=== PATIENT | female | born 1935 | race Caucasian/White ===

== ENCOUNTER → 2016-12-18 | Outpatient (CLI) | payer MEDICARE, OTHER ==
[~2016-12-18] MED LIST: AC500T PO; ACET325T38 PO; AMIO200T2 PO; AMLO10TA2 PO; ASPI-999 PO; BP MED; CA C1TAB26 PO; CALC-656 PO; CARB1TAB19 PO; CARB1TAB44 PO; CETI10CA PO; CETI10TA20 PO; CHLO25TA2 PO; CHLO25TA22; CLOP75TA28 PO; CLOP75TA69 PO; CPR500T PO; DEXT15LI29 PO; DOXY100C2 PO; FAMO-119 PO; FAMO20TA5 PO; FLT05NA16 NSEACH; FURO-124 PO; FURO40TA4 PO; GABA-486 PO; GABA600T2 PO; GUAI100L34 PO; IBUP-15; LEVO100T7 PO; LEVO125T6 PO; LEVO75TA57; LEVO75TA57 PO; LISI20TA PO; LISI40TA; LOPE1LIQ7 PO; LOPE2TAB34 PO; LOSA100T28 PO; LOSA50TA36 PO; LOSA50TA6 PO; LVT.05T; MAGN400C PO; MAGN400T6 PO; MECL-106 PO; MECL25TA3 PO; MELA1TAB10 PO; METF500T4 PO; MULT-608 PO; OMEG1CAP58 PO; OMEP40CA36 PO; ONDA4TAB8 PO; ONDA8TAB6 PO; OXCA300T PO; OXCA300T4 PO; PARO20TA57; PARO30TA74 PO; PAXIL; POTA20TA15 PO; POTA20TA8 PO; REQUIP; RIVA6CAP3 PO; RIVA6CAP5 PO; ROPI1TAB; ROPI1TAB2 PO; SCOP1PAT TD; SCR1T1; SENN-140 PO; SENN8.6C5 PO; SERT100T PO; SERT100T8 PO; SERT50TA9 PO; SULF1TAB35 PO; TEMA15CA PO; TRAZ-28 PO; VERA240C2 PO; VERA240T; xanax
== END ==
PROVIDERS: ATTEND Internal Medicine
DX: J09.X9 Influenza due to identified novel influenza A virus with other manifestations (principal)
CPT/HCPCS: 87804

== ENCOUNTER 2017-02-22 17:12 | Emergency (ER) | payer MEDICARE, OTHER ==
[~2017-02-22] VITALS: Ht 165.1 cm; Wt 66.0 kg
--- NOTE | 2017-02-22 17:20 | ED Chest Pain ---
General Stated Complaint: CP/SOA Source: patient, EMS Exam Limitations: no limitations History of Present Illness Time seen by provider: 17:19 Initial Comments To ER per EMS from medical [place] chronic with reports of chest pain shortness of breath. EMS gave nitroglycerin and aspirin in route to the hospital. Patient states that she does not currently have any chest pain or shortness of breath but that she did have some mild chest pain earlier today. She also states "I don't know what they got so worked up about, I have that chest pain quite a bit". She believes this to be related to anxiety. Timing/Duration: 4-6 hours Severity/Quality: moderate Radiation: no radiation Activities at Onset: none ASA po PRESS BREAKER: Yes NTG SL PRESS BREAKER: Yes Allergies and Home Medications Allergies Coded Allergies: amitriptyline (Unverified Adverse Reaction, Mild, PSYCH-HYPERACTIVE, 08/27) diazepam (Verified Adverse Reaction, Unknown, 08/02/15) haloperidol (Verified Adverse Reaction, Unknown, 08/02/15) lorazepam (Verified Adverse Reaction, Unknown, 08/02/15) Home Medications Acetaminophen 325 Mg Tablet, 650 MG PO Q4H PRN for PAIN, (Reported) TAKES 2 (325MG) TABLETS Amlodipine Besylate 10 Mg Tablet, 10 MG PO DAILY, (Reported) Aspirin 81 Mg Tab.chew, 81 MG PO DAILY, (Reported) Carbidopa/Levodopa 1 Each Tablet, 1 TAB PO BID, (Reported) Cetirizine HCl 10 Mg Tablet, 10 MG PO DAILY PRN for COUGH/WHEEZING/ITCHING, ( Reported) Clopidogrel Bisulfate 75 Mg Tablet, 75 MG PO DAILY, (Reported) Dextromethorphan HBr 15 Mg/5 Ml Liquid, 2 TSP PO Q4H PRN for COUGH, (Reported) Famotidine 20 Mg Tablet, 20 MG PO BID, (Reported) Furosemide 40 Mg Tablet, 40 MG PO DAILY, (Reported) Gabapentin 100 Mg Capsule, 100 MG PO DAILY @ 1200, (Reported) Gabapentin 600 Mg Tablet, 1,200 MG PO HS, (Reported) TAKES 2 (600MG) TABLETS Levothyroxine Sodium 125 Mcg Tablet, 125 MCG PO DAILY, (Reported) Loperamide HCl 2 Mg Tablet, 2 MG PO UD PRN for DIARRHEA, (Reported) Losartan Potassium 100 Mg Tablet, 100 MG PO DAILY, (Reported) Magnesium Oxide 400 Mg Tablet, 400 MG PO TID, (Reported) Meclizine HCl 25 Mg Tablet, 25 MG PO Q6H PRN for DIZZINESS, (Reported) Metformin HCl 500 Mg Tablet, 250 MG PO DAILY, (Reported) TAKES 1/2 (500MG) TABLET Metformin HCl 500 Mg Tablet, 500 MG PO HS, (Reported) Ondansetron HCl 8 Mg Tablet, 8 MG PO Q6H PRN for NAUSEA/VOMITING, (Reported) Oxcarbazepine 300 Mg Tablet, 300 MG PO HS, (Reported) Potassium Chloride 20 Meq Tab.er.prt, 20 MEQ PO TID, (Reported) Rivastigmine Tartrate 6 Mg Capsule, 6 MG PO BID, (Reported) Ropinirole HCl 1 Mg Tablet, 1 MG PO BID, (Reported) Scopolamine 1 Each Patch.td72, 1 PATCH TD EVERY 72 HOURS, (Reported) Sennosides 8.6 Mg Tablet, 8.6 MG PO DAILY PRN for CONSTIPATION, (Reported) Sertraline HCl 100 Mg Tablet, 100 MG PO DAILY, (Reported) Sulfamethoxazole/Trimethoprim 1 Each Tablet, 1 TAB PO BID for 10 Days, (Reported ) 10 DAY THERAPY STARTED 11-19-15 Temazepam 15 Mg Capsule, 15 MG PO HS, (Reported) Trazodone HCl 50 Mg Tablet, 50 MG PO HS, (Reported) Review of Systems Constitutional: see HPI EENTM: No Symptoms Reported Respiratory: No Symptoms Reported Cardiovascular: See HPI, Chest Pain Gastrointestinal: No Symptoms Reported Genitourinary: No Symptoms Reported Musculoskeletal: no symptoms reported Skin: no symptoms reported Psychiatric/Neurological: No Symptoms Reported Endocrine: No Symptoms Reported Past Ruwnamq-Xjzutv-Eejyjc Hx Patient Social History Former Smoker/When Quit: Aug 03, 1975 Recent Foreign Travel: No Contact w/Someone Who Travel: No Immunizations Up To Date Date of Pneumonia Vaccine: Aug 03, 2013 Seasonal Allergies Seasonal Allergies: No Surgeries HX Surgeries: Yes (CYSTOCELE/RECTOCELE) Surgeries: Appendectomy, Cardiac, Gallbladder, 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 Respiratory Hx Respiratory Disorders: No Cardiovascular Hx Cardiac Disorders: Yes (HEART CATH--NO INTERVENTIONS, BENIGN) Cardiac Disorders: Atrial Fibrillation, Chronic Edema/Swelling, Hypertension Neurological Hx Neurological Disorders: Yes (RESTLESS LEG SYNDROME) Neurological Disorders: Dementia 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 System Hx 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 Disorders: No 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, 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 Genitourinary Hx Genitourinary Disorders: Yes Genitourinary Disorders: Bladder Infection Gastrointestinal Hx Gastrointestinal Disorders: Yes Gastrointestinal Disorders: Gastroesophageal Reflux, Chronic Constipation, Chronic Diarrhea Musculoskeletal Hx Musculoskeletal Disorders: Yes (RESTLESS LEG SYNDROME, GENERALIZED PAIN) Endocrine Hx Endocrine Disorders: Yes Endocrine Disorders: Hypothyroidsim, Diabetes, Non-Insulin dep HEENT HX ENT Disorders: No Cancer Hx Cancer: No Psychosocial Hx Psychiatric Problems: Yes (ALZHEIMERS, AGITATION, INSOMNIA) Behavioral Health Disorders: Sleep Difficulties, Anxiety, Bipolar, Depression Integumentary HX Skin/Integumentary Disorder: No Blood Transfusions Hx Blood Disorders: No Physical Exam Vital Signs Vital Sign - Last 12Hours 02/22/17 17:15 Temp 98.1 Pulse 79 Resp 14 B/P (MAP) 168/95 Pulse Ox 97 O2 Delivery Room Air Capillary Refill : General Appearance: No Apparent Distress, WD/WN HEENT: PERRL/EOMI, TMs Normal Neck: Full Range of Motion, Normal Inspection Respiratory: No Accessory Muscle Use, No Respiratory Distress Cardiovascular: Regular Rate, Rhythm, Normal Peripheral Pulses Gastrointestinal: Normal Bowel Sounds, Non Tender, Soft Extremity: Normal Capillary Refill, Normal Inspection Neurologic/Psychiatric: Alert, Oriented x3, No Motor/Sensory Deficits Skin: Normal Color, Warm/Dry Progress/Results/Core Measures Results/Orders Lab Results Laboratory Tests Test 02/22/17 17:35 02/22/17 17:58 Range/Units White Blood Count 6.8 4.3-11.0 10^3/uL Red Blood Count 4.72 4.35-5.85 10^6/uL Hemoglobin 13.8 11.5-16.0 G/DL Hematocrit 40 35-52 % Mean Corpuscular Volume 85 80-99 FL Mean Corpuscular Hemoglobin 29 25-34 PG Mean Corpuscular Hemoglobin Concent 35 32-36 G/DL Red Cell Distribution Width 13.0 10.0-14.5 % Platelet Count 187 130-400 10^3/uL Mean Platelet Volume 9.9 7.4-10.4 FL Neutrophils (%) (Auto) 68 42-75 % Lymphocytes (%) (Auto) 22 12-44 % Monocytes (%) (Auto) 9 0-12 % Eosinophils (%) (Auto) 1 0-10 % Basophils (%) (Auto) 0 0-10 % Neutrophils # (Auto) 4.6 1.8-7.8 X 10^3 Lymphocytes # (Auto) 1.5 1.0-4.0 X 10^3 Monocytes # (Auto) 0.6 0.0-1.0 X 10^3 Eosinophils # (Auto) 0.1 0.0-0.3 10^3/uL Basophils # (Auto) 0.0 0.0-0.1 10^3/uL Prothrombin Time 12.5 12.2-14.7 SEC INR Comment 1.0 0.8-1.4 Activated Partial Thromboplast Time 24 24-35 SEC Sodium Level 141 135-145 MMOL/L Potassium Level 4.0 3.6-5.0 MMOL/L Chloride Level 109 H 98-107 MMOL/L Carbon Dioxide Level 20 L 21-32 MMOL/L Anion Gap 12 5-14 MMOL/L Blood Urea Nitrogen 22 H 7-18 MG/DL Creatinine 1.18 0.60-1.30 MG/DL Estimat Glomerular Filtration Rate 44 BUN/Creatinine Ratio 19 Glucose Level 121 H 70-105 MG/DL Calcium Level 9.1 8.5-10.1 MG/DL Magnesium Level 2.1 1.8-2.4 MG/DL Total Bilirubin 0.3 0.1-1.0 MG/DL Aspartate Amino Transf (AST/SGOT) 14 5-34 U/L Alanine Aminotransferase (ALT/SGPT) < 6 0-55 U/L Alkaline Phosphatase 147 H 40-136 U/L Myoglobin 36.2 10.0-92.0 NG/ML Troponin I < 0.30 <0.30 NG/ML Total Protein 7.0 6.4-8.2 G/DL Albumin 4.3 3.2-4.5 G/DL My Orders Orders - JESSICA PAINTING REED OR WIND INSTRUMENT TUNER Cbc With Automated Diff (02/22/17 17:18) Magnesium (02/22/17 17:18) Chest 1 View, Ap/Pa Only (02/22/17 17:18) Ekg Tracing (02/22/17 17:18) Cardiac Profile 1 (02/22/17 17:18) Comprehensive Metabolic Panel (02/22/17 17:18) Myoglobin Serum (02/22/17 17:18) Protime With Inr (02/22/17 17:18) Partial Thromboplastin Time (02/22/17 17:18) O2 (02/22/17 17:18) Monitor-Rhythm Ecg Trace Only (02/22/17 17:18) Lipid Panel (02/23/17 06:00) Saline Lock/Iv-Start (02/22/17 17:18) Ua Culture If Indicated (02/22/17 17:55) Ekg Tracing (02/22/17 18:17) Vital Signs/I&O Vital Sign - Last 12Hours 02/22/17 02/22/17 17:15 17:15 Temp 98.1 Pulse 79 Resp 14 B/P (MAP) 168/95 Pulse Ox 97 O2 Delivery Room Air Room Air Diagnostic Imaging Diagonstic Imaging: Xray Plain Films/CT/US/NM/MRI: chest Departure Communication Progress Notes 182- patient is sitting on the edge of the bed visiting with her . Continues to report that she is symptom-free without any chest pain or dyspnea. No palpitations. She states that she is hungry and would like to go home so she can eat. She states "I don't know why they sent me here, everybody just got in a panic". Oxygen saturation 99 percent on room air, heart rate 62, blood pressure 151/81. EKG shows no ST segment changes. Impression Impression: Primary Impression: Anxiety Additional Impression: History of chest pain Disposition: SNF Condition: Stable Departure-Patient Inst. Decision time for Depature: 18:21 Referrals: VERONICA SPRINGER MD (PCP/Family) Primary Care Physician Patient Instructions: Chest Pain (DC) Add. Discharge Instructions: 1. Return to ER for any concerns such as recurrent chest pain 2. Follow-up with your doctor later this week 3. Continue all current medications JESSICA PAINTING APRN Feb 22, 2017 17:20
[2017-02-22 17:46] LABS: BASOPHILS % (AUTO) 0 % (0-10); EOSINOPHILS # (AUTO) 0.1 10^3/uL (0.0-0.3); EOSINOPHILS % (AUTO) 1 % (0-10); LYMPHOCYTES # (AUTO) 1.5 X 10^3 (1.0-4.0); LYMPHOCYTES % (AUTO) 22 % (12-44); MEAN CORPUSCULAR HEMOGLOBIN 29 PG (25-34); MEAN CORPUSCULAR HGB CONC 35 G/DL (32-36); MEAN CORPUSCULAR VOLUME 85 FL (80-99); MEAN PLATELET VOLUME 9.9 FL (7.4-10.4); MONOCYTES # (AUTO) 0.6 X 10^3 (0.0-1.0); MONOCYTES % (AUTO) 9 % (0-12); NEUTROPHILS # (AUTO) 4.6 X 10^3 (1.8-7.8); NEUTROPHILS % (AUTO) 68 % (42-75); PLATELET COUNT 187 10^3/uL (130-400); RED BLOOD COUNT 4.72 10^6/uL (4.35-5.85); WHITE BLOOD COUNT 6.8 10^3/uL (4.3-11.0)
[2017-02-22 18:00] LABS: PROTHROMBIN TIME PATIENT 12.5 SEC (12.2-14.7)
--- NOTE | 2017-02-22 18:05 | Diagnostic Imaging Report ---
CHEST 1 VIEW, AP/PA ONLY INDICATION: Chest pain and dyspnea. COMPARISON: 11/18/2015. FINDINGS: There are a few scattered linear foci of atelectasis which are unchanged. No concerning focal airspace disease in the visualized lungs. Please note that the posterior lower lobes are poorly evaluated by portable radiography. No pleural effusion or pneumothorax. Stable borderline cardiomegaly. Normal pulmonary vasculature IMPRESSION: No acute cardiopulmonary process by portable radiography. Dictated by: Dictated on workstation # [id number]
[2017-02-22 18:07] LABS: ALANINE AMINOTRANSFERASE < 6 U/L (0-55); ALBUMIN 4.3 G/DL (3.2-4.5); ANION GAP 12 MMOL/L (5-14); ASPARTATE AMINO TRANSFERASE 14 U/L (5-34); BILIRUBIN,TOTAL 0.3 MG/DL (0.1-1.0); BLOOD UREA NITROGEN 22 MG/DL (7-18); BUN/CREATININE RATIO 19; CALCIUM 9.1 MG/DL (8.5-10.1); CARBON DIOXIDE 20 MMOL/L (21-32); CHLORIDE 109 MMOL/L (98-107); CREATININE SERUM 1.18 MG/DL (0.60-1.30); GFR ESTIMATED 44; GLUCOSE 121 MG/DL (70-105); MAGNESIUM 2.1 MG/DL (1.8-2.4); SODIUM 141 MMOL/L (135-145)
[2017-02-22 18:12] LABS: BILIRUBIN,URINE NEGATIVE (NEGATIVE); KETONES,URINE NEGATIVE (NEGATIVE); LEUKOCYTE ESTERASE ,URINE 1+ (NEGATIVE); NITRITE,URINE NEGATIVE (NEGATIVE); PH,URINE 7 (5-9); PROTEIN,URINE NEGATIVE (NEGATIVE); UROBILINOGEN,URINE NORMAL (NORMAL)
[2017-02-22 18:13] LABS: MYOGLOBIN SERUM 36.2 NG/ML (10.0-92.0)
[2017-02-22 18:42] VITALS: BP 168/95
[2017-02-22 18:56] LABS: WBC,URINE 0-2 /HPF
== END 2017-02-22 18:42 ==
LOC: EDUNIT# 17:12 → ER 17:13
DX: R07.89 Other chest pain (principal); F41.9 Anxiety disorder, unspecified; I10 Essential (primary) hypertension; I48.2 Chronic atrial fibrillation; E11.9 Type 2 diabetes mellitus without complications; Z79.82 Long term (current) use of aspirin; Z79.899 Other long term (current) drug therapy; Z79.84 Long term (current) use of oral hypoglycemic drugs
CPT/HCPCS: 36415; 71010; 80053; 81000; 83735; 83874; 84484; 85025; 85610; 85730; 93005; 93041

== ENCOUNTER 2017-06-01 15:49 | Inpatient (IN) | payer MEDICARE, OTHER ==
[2017-06-01] VITALS (12 sets, daily range): BP systolic 119–152; BP diastolic 65–97
[~2017-06-01] VITALS: Ht 175.3 cm; Wt 76.5 kg
[~2017-06-01 15:49] MED LIST changes: -GUAI100L34 PO; +GUAI100L36 PO
[2017-06-01] MEDS ORDERED: ASPIRIN 81 MG CHEW (CHILDREN'S ASA) PO ONE (16:00)
[2017-06-01] MEDS ORDERED: LORazepam INJ 2 MG/ML (ATIVAN) VIAL IVP ONE ×2 (16:00→18:15)
[2017-06-01 16:31] LABS: BASOPHILS % (AUTO) 0 % (0-10); EOSINOPHILS # (AUTO) 0.1 10^3/uL (0.0-0.3); EOSINOPHILS % (AUTO) 1 % (0-10); LYMPHOCYTES # (AUTO) 1.3 X 10^3 (1.0-4.0); LYMPHOCYTES % (AUTO) 17 % (12-44); MEAN CORPUSCULAR HEMOGLOBIN 29 PG (25-34); MEAN CORPUSCULAR HGB CONC 34 G/DL (32-36); MEAN CORPUSCULAR VOLUME 84 FL (80-99); MEAN PLATELET VOLUME 9.8 FL (7.4-10.4); MONOCYTES # (AUTO) 0.5 X 10^3 (0.0-1.0); MONOCYTES % (AUTO) 7 % (0-12); NEUTROPHILS # (AUTO) 5.6 X 10^3 (1.8-7.8); NEUTROPHILS % (AUTO) 75 % (42-75); PLATELET COUNT 215 10^3/uL (130-400); RED BLOOD COUNT 4.97 10^6/uL (4.35-5.85); WHITE BLOOD COUNT 7.4 10^3/uL (4.3-11.0)
--- NOTE | 2017-06-01 16:44 | Diagnostic Imaging Report ---
EXAMINATION: Portable upright radiograph of the chest. INDICATION: Chest pain. FINDINGS: The heart size is enlarged with minimal pulmonary vascular congestion. No focal consolidation. No effusion or pneumothorax. The mediastinum and yuridia appear unremarkable. IMPRESSION: Cardiomegaly with minimal pulmonary vascular congestion. Dictated by: Dictated on workstation # [id number]
[2017-06-01] MEDS ORDERED: DILTIAZEM 25 MG/5 ML INJ (CARDIZEM) VIAL IVP ONE (16:45)
--- NOTE | 2017-06-01 16:46 | ED Chest Pain ---
General Chief Complaint: Chest Pain Stated Complaint: CP Nursing Triage Note: PT ARRIVED PER EMS, PT CO OF C/P PT HAS ALZHEIMER AND DIMENTIA. PT HAS SL IN PLACE #24 IN L HAND BY EMS. PT HEART RATE 140'S. PT IS FROM [place] IN [facility] Sepsis Screen: No Definite Risk Source: patient (POOR HISTORIAN, PT WITH DEMENTIA), EMS, detention records Exam Limitations: other (ALL PMH IS FROM OLD RECORDS AND ASSISTED RECORDS) History of Present Illness Time seen by provider: 15:57 Initial Comments PT ARRIVES VIA EMS FROM [facility] PT HAS C/O CHEST PAIN AND BEEN VERY ANXIOUS ALL DAY PT UPSET BECAUSE SHE THINKS HER HAS NOT BEEN TO SEE HER--PER EMS, HER IS THERE EVERY DAY, NEARLY ALL DAY, PT SIMPLY DOES NOT REMEMBER HIM BEING THERE, AND THEN SHE GETS UPSET PT HAS PRN XANAX ORDERS, BUT HAS NOT BEEN GIVEN ANY TODAY PT STATES "THIS ISN'T ANYTHING NEW-WHEN I GET UPSET I ALWAYS GET PAINS IN MY HEART AREA AND I GET SCARED BECAUSE MY DAD AT A YOUNG AGE OF A HEART ATTACK " -PT REPORTS HE IN HIS 40'S HOWEVER, PT WITH VERY POOR MEMORY AND CANNOT RECALL ANY OF THE DAYS' EVENTS PT VERY ANXIOUS ON ARRIVAL PT DOES STILL C/O CHEST PAIN, BUT NOT BAD, ACCORDING TO PT PT DENIES FEELING SHORT OF BREATH DENIES SENSATION OF HEART BEATING FAST OR HARD OR SKIPPING DENIES DIZZINESS PT UNABLE TO VERBALIZE ANY OTHER COMPLAINTS PCP: DR. SPRINGER Allergies and Home Medications Allergies Coded Allergies: amitriptyline (Unverified Adverse Reaction, Mild, PSYCH-HYPERACTIVE, 08/27) diazepam (Verified Adverse Reaction, Unknown, 08/02/15) haloperidol (Verified Adverse Reaction, Unknown, 08/02/15) lorazepam (Verified Adverse Reaction, Unknown, 08/02/15) Home Medications Acetaminophen 325 Mg Tablet, 650 MG PO Q4H PRN for PAIN, (Reported) TAKES 2 (325MG) TABLETS Amlodipine Besylate 10 Mg Tablet, 10 MG PO DAILY, (Reported) Aspirin 81 Mg Tab.chew, 81 MG PO DAILY, (Reported) Carbidopa/Levodopa 1 Each Tablet, 1 TAB PO BID, (Reported) Cetirizine HCl 10 Mg Tablet, 10 MG PO DAILY PRN for COUGH/WHEEZING/ITCHING, ( Reported) Clopidogrel Bisulfate 75 Mg Tablet, 75 MG PO DAILY, (Reported) Dextromethorphan HBr 15 Mg/5 Ml Liquid, 2 TSP PO Q4H PRN for COUGH, (Reported) Famotidine 20 Mg Tablet, 20 MG PO BID, (Reported) Furosemide 40 Mg Tablet, 40 MG PO DAILY, (Reported) Gabapentin 100 Mg Capsule, 100 MG PO DAILY @ 1200, (Reported) Gabapentin 600 Mg Tablet, 1,200 MG PO HS, (Reported) TAKES 2 (600MG) TABLETS Levothyroxine Sodium 125 Mcg Tablet, 125 MCG PO DAILY, (Reported) Loperamide HCl 2 Mg Tablet, 2 MG PO UD PRN for DIARRHEA, (Reported) Losartan Potassium 100 Mg Tablet, 100 MG PO DAILY, (Reported) Magnesium Oxide 400 Mg Tablet, 400 MG PO TID, (Reported) Meclizine HCl 25 Mg Tablet, 25 MG PO Q6H PRN for DIZZINESS, (Reported) Metformin HCl 500 Mg Tablet, 250 MG PO DAILY, (Reported) TAKES 1/2 (500MG) TABLET Metformin HCl 500 Mg Tablet, 500 MG PO HS, (Reported) Ondansetron HCl 8 Mg Tablet, 8 MG PO Q6H PRN for NAUSEA/VOMITING, (Reported) Oxcarbazepine 300 Mg Tablet, 300 MG PO HS, (Reported) Potassium Chloride 20 Meq Tab.er.prt, 20 MEQ PO TID, (Reported) Rivastigmine Tartrate 6 Mg Capsule, 6 MG PO BID, (Reported) Ropinirole HCl 1 Mg Tablet, 1 MG PO BID, (Reported) Scopolamine 1 Each Patch.td72, 1 PATCH TD EVERY 72 HOURS, (Reported) Sennosides 8.6 Mg Tablet, 8.6 MG PO DAILY PRN for CONSTIPATION, (Reported) Sertraline HCl 100 Mg Tablet, 100 MG PO DAILY, (Reported) Sulfamethoxazole/Trimethoprim 1 Each Tablet, 1 TAB PO BID for 10 Days, (Reported ) 10 DAY THERAPY STARTED 11-19-16 Temazepam 15 Mg Capsule, 15 MG PO HS, (Reported) Trazodone HCl 50 Mg Tablet, 50 MG PO HS, (Reported) Review of Systems Constitutional: other (VERY LIMITED) Respiratory: Denies Shortness of Air Cardiovascular: Chest Pain, Denies Irregular Heart Rate, Denies Lightheadedness , Denies Palpitations Psychiatric/Neurological: See HPI, Anxiety Past Kjcmygi-Xrmkpy-Tgvlpg Hx Patient Social History Former Smoker/When Quit: Aug 03, 1975 2nd Hand Smoke Exposure: No Recent Foreign Travel: No Contact w/Someone Who Travel: No Recent Infectious Disease Expo: No Recent Hopitalizations: No Immunizations Up To Date Date of Pneumonia Vaccine: Aug 03, 2013 Seasonal Allergies Seasonal Allergies: No Surgeries HX Surgeries: Yes (CYSTOCELE/RECTOCELE) Surgeries: Appendectomy, Cardiac, Gallbladder, 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 Respiratory Hx Respiratory Disorders: No Cardiovascular Hx Cardiac Disorders: Yes (HEART CATH--NO INTERVENTIONS, BENIGN) Cardiac Disorders: Atrial Fibrillation (SUSPECTED), Chronic Edema/Swelling, Hypertension Neurological Hx Neurological Disorders: Yes (RESTLESS LEG SYNDROME; DIZZINESS; DRUG INDUCED DYSKINESIA) Neurological Disorders: Dementia 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 System Hx 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 Disorders: 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, 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 Genitourinary Hx Genitourinary Disorders: Yes Genitourinary Disorders: Bladder Infection Gastrointestinal Hx Gastrointestinal Disorders: Yes Gastrointestinal Disorders: Gastroesophageal Reflux, Chronic Constipation, Chronic Diarrhea Musculoskeletal Hx Musculoskeletal Disorders: Yes (RESTLESS LEG SYNDROME, GENERALIZED PAIN) Endocrine Hx Endocrine Disorders: Yes Endocrine Disorders: Hypothyroidsim, Diabetes, Non-Insulin dep HEENT HX ENT Disorders: No Cancer Hx Cancer: No Psychosocial Hx Psychiatric Problems: Yes (ALZHEIMERS, AGITATION, INSOMNIA) Behavioral Health Disorders: Sleep Difficulties, Anxiety, Bipolar, Depression Integumentary HX Skin/Integumentary Disorder: No Blood Transfusions Hx Blood Disorders: Yes (IRON DEFICIENCY ANEMIA) Physical Exam Vital Signs Vital Sign - Last 12Hours 06/01/17 15:55 Temp 98.1 Pulse 140 Resp 20 B/P (MAP) 152/96 Pulse Ox 96 Capillary Refill : Less Than 3 Seconds General Appearance: No Apparent Distress, WD/WN, Anxious (TREMULOUS) Neck: Normal Inspection Respiratory: Normal Breath Sounds, No Accessory Muscle Use, No Respiratory Distress Cardiovascular: No JVD, No Murmur, Normal Peripheral Pulses, Irregularly Irregular, Tachycardia Gastrointestinal: Non Tender, Soft Extremity: Normal Capillary Refill, Normal Inspection, Normal Range of Motion, Non Tender, No Calf Tenderness, Pedal Edema (TRACE BILATERALLY) Neurologic/Psychiatric: Alert, No Motor/Sensory Deficits, placement manager II-XII Norm as Tested, Other (ANXIOUS, AGITIATED, ORIENTED TO PERSON, AND KNOWS SHE IS IN HOSPITAL, BUT CONFUSED TO TIME, SITUATION, AND VERY POOR MEMORY-ESPEICALLY SHORT TERM) Skin: Normal Color, Warm/Dry Progress/Results/Core Measures Results/Orders Lab Results Laboratory Tests Test 06/01/17 16:20 Range/Units White Blood Count 7.4 4.3-11.0 10^3/uL Red Blood Count 4.97 4.35-5.85 10^6/uL Hemoglobin 14.3 11.5-16.0 G/DL Hematocrit 42 35-52 % Mean Corpuscular Volume 84 80-99 FL Mean Corpuscular Hemoglobin 29 25-34 PG Mean Corpuscular Hemoglobin Concent 34 32-36 G/DL Red Cell Distribution Width 13.0 10.0-14.5 % Platelet Count 215 130-400 10^3/uL Mean Platelet Volume 9.8 7.4-10.4 FL Neutrophils (%) (Auto) 75 42-75 % Lymphocytes (%) (Auto) 17 12-44 % Monocytes (%) (Auto) 7 0-12 % Eosinophils (%) (Auto) 1 0-10 % Basophils (%) (Auto) 0 0-10 % Neutrophils # (Auto) 5.6 1.8-7.8 X 10^3 Lymphocytes # (Auto) 1.3 1.0-4.0 X 10^3 Monocytes # (Auto) 0.5 0.0-1.0 X 10^3 Eosinophils # (Auto) 0.1 0.0-0.3 10^3/uL Basophils # (Auto) 0.0 0.0-0.1 10^3/uL Prothrombin Time 12.5 12.2-14.7 SEC INR Comment 1.0 0.8-1.4 Activated Partial Thromboplast Time 25 24-35 SEC Sodium Level 141 135-145 MMOL/L Potassium Level 4.0 3.6-5.0 MMOL/L Chloride Level 107 98-107 MMOL/L Carbon Dioxide Level 22 21-32 MMOL/L Anion Gap 12 5-14 MMOL/L Blood Urea Nitrogen 23 H 7-18 MG/DL Creatinine 1.29 0.60-1.30 MG/DL Estimat Glomerular Filtration Rate 39 BUN/Creatinine Ratio 18 Glucose Level 145 H 70-105 MG/DL Calcium Level 9.6 8.5-10.1 MG/DL Magnesium Level 2.1 1.8-2.4 MG/DL Total Bilirubin 0.3 0.1-1.0 MG/DL Aspartate Amino Transf (AST/SGOT) 12 5-34 U/L Alanine Aminotransferase (ALT/SGPT) 8 0-55 U/L Alkaline Phosphatase 162 H 40-136 U/L Total Creatine Kinase 54 29-168 U/L Creatine Kinase MB 2.1 <6.6 NG/ML Troponin I < 0.30 <0.30 NG/ML B-Type Natriuretic Peptide 238.0 H <100.0 PG/ML Total Protein 8.0 6.4-8.2 GM/DL Albumin 4.7 H 3.2-4.5 GM/DL Amylase Level 44 25-125 U/L Lipase 20 8-78 U/L TSH [place] Testing 0.78 0.35-4.94 UIU/ML My Orders Orders - MCKINLEY HYDE DO Amylase (06/01/17 15:57) Cbc With Automated Diff (06/01/17 15:57) Comprehensive Metabolic Panel (06/01/17 15:57) Creatine Kinase (06/01/17 15:57) Creatine Kinase Mb (06/01/17 15:57) Lipase (06/01/17 15:57) Partial Thromboplastin Time (06/01/17 15:57) Protime With Inr (06/01/17 15:57) Troponin I (06/01/17 15:57) Chest 1 View, Ap/Pa Only (06/01/17 15:57) O2 (06/01/17 15:57) Ekg Tracing (06/01/17 15:57) Aspirin Chewable Tablet (Baby Aspirin Ch (06/01/17 16:00) BNP (06/01/17 15:57) Monitor-Rhythm Ecg Trace Only (06/01/17 15:57) Lorazepam Injection (Ativan Injection) (06/01/17 16:00) Magnesium (06/01/17 16:36) Thyroid Analyzer (06/01/17 16:36) Diltiazem Injection (Cardizem Injection) (06/01/17 16:45) Sodium Chloride (Ad... W/Diltiazem Drip (06/01/17 18:00) Enoxaparin Injection (Lovenox Injection) (06/01/17 18:00) Lorazepam Injection (Ativan Injection) (06/01/17 18:15) Medications Given in ED Current Medications Medications Dose Ordered Sig/Jovani Route Start Time Stop Time Status Last Admin Dose Admin Aspirin 324 mg ONCE ONCE PO 06/01/17 16:00 06/01/17 16:01 DC 06/01/17 16:20 324 MG Diltiazem HCl 10 mg ONCE ONCE IVP 06/01/17 16:45 06/01/17 16:46 DC 06/01/17 16:53 10 MG Lorazepam 1 mg ONCE ONCE IVP 06/01/17 16:00 06/01/17 16:01 DC 06/01/17 16:20 1 MG Vital Signs/I&O Vital Sign - Last 12Hours 06/01/17 15:55 Temp 98.1 Pulse 140 Resp 20 B/P (MAP) 152/96 Pulse Ox 96 Blood Pressure Mean: 114 Progress Note : Progress Note PT CALMED WITH ATIVAN, AND SLEPT FOR MOST OF STAY NO COMPLAINTS DURING ER STAY GIVEN CARDIZEM BOLUS OF 10 MG AND HEART RATE SLOWED TO 110-120, STILL IN A FIB. CARDIZEM DRIP STARTED AND RATE IN LOW 100'S AT TIME OF ADMIT LOVENOX GIVEN 1800--PT OUT OF BED, HAS PULLED OUT IV, REMOVED ALL PATCHES AND MONITORING DEVICES AND STARTING TO WALK OUT OF ROOM--PT ASSISTED BACK TO BED, PLACED BACK ON MONITOR, IV RESTARTED, PT URINATED IN BEDSIDE COMMODE, THEN PT QUIETED AND WENT BACK TO SLEEP 1830-- HERE, UPDATE GIVEN. HE REPORTS THAT PT'S SHORT TERM MEMORY IS ESSENTIALLY NON-EXISTENT, AND SHE VERY EASILY GETS UPSET/ANXIOUS/AGITATED, ESPECIALLY TOWARDS HIM ECG Initial ECG Impression Time: 15:57 Initial ECG Rate: 135 Initial ECG Rhythm: A Fib/Flutter Initial ECG Comparisson: Changed (MOST PREVIOUS EKG'S SHOW NSR, A COUPLE WITH QUESTIONABLE ARRHYTHMIA, BUT NO DEFINITE EVIDENCE OF ATRIAL FIBRILLATION. ) Diagnostic Imaging Comments CXR--CARDIOMEGALY WITH MINIMAL VASCULAR CONGESTION--PER RADIOLOGIST REPORT @ 1645 Reviewed: Reviewed by Me Departure Communication Progress Notes 1744--SPOKE WITH DR. MAN, ACCEPTS PT FOR ADMIT 1800--ATTEMPTING TO CONTACT DR. MENDOZA, MESSAGE LEFT ON CELL PHONE. [id number]--SPOKE WITH DR. MENDOZA, INFORMED OF NEED FOR CONSULT. Impression Impression: Primary Impression: Atrial fibrillation with rapid ventricular response Additional Impressions: Chest pain DEMENTIA WITH ANXIETY NIDDM Disposition: ADMITTED INPATIENT Condition: Stable Decision to Admit Reason: Admit from ER (General) Decision to Admit/Date: Jun 01, 2017 Time/Decision to Admit Time: 17:45 Departure-Patient Inst. Referrals: VERONICA SPRINGER MD (PCP/Family) Primary Care Physician MCKINLEY HYDE DO Jun 01, 2017 16:46
[2017-06-01 16:53] LABS: PROTHROMBIN TIME PATIENT 12.5 SEC (12.2-14.7)
[2017-06-01 17:04] LABS: ALANINE AMINOTRANSFERASE 8 U/L (0-55); ALBUMIN 4.7 GM/DL (3.2-4.5); AMYLASE 44 U/L (25-125); ANION GAP 12 MMOL/L (5-14); ASPARTATE AMINO TRANSFERASE 12 U/L (5-34); BILIRUBIN,TOTAL 0.3 MG/DL (0.1-1.0); BLOOD UREA NITROGEN 23 MG/DL (7-18); BUN/CREATININE RATIO 18; CALCIUM 9.6 MG/DL (8.5-10.1); CARBON DIOXIDE 22 MMOL/L (21-32); CHLORIDE 107 MMOL/L (98-107); CREATINE KINASE 54 U/L (29-168); CREATININE SERUM 1.29 MG/DL (0.60-1.30); GFR ESTIMATED 39; GLUCOSE 145 MG/DL (70-105); LIPASE 20 U/L (8-78); SODIUM 141 MMOL/L (135-145)
[2017-06-01 17:05] LABS: MAGNESIUM 2.1 MG/DL (1.8-2.4)
[2017-06-01 17:26] LABS: TROPONIN I < 0.30 NG/ML (<0.30)
[2017-06-01] MEDS ORDERED: ENOXAPARIN 80 MG/0.8 ML (LOVENOX) SYR SC ONE (18:00)
[2017-06-01] MEDS ORDERED: DILTIAZEM DRIP 100 MG in SODIUM CHLORIDE (ADD-VANTAGE) 100 ML IV SCH (18:00)
[2017-06-01] MEDS ORDERED: NITROGLYCERIN SUBLINGUAL 0.4 MG TAB (NITROSTAT) SL PRN (20:15)
[2017-06-01] MEDS ORDERED: morphine INJ 4 MG/ML 1 ML (VIAL/SYRINGE) IV PRN (20:15)
[2017-06-01] MEDS ORDERED: CATHETER FLUSH 10 ML SYR IV PRN (20:15)
[2017-06-01] MEDS: inSUlin (REGULAR) HUMAN 1 UNIT/0.01 ML (CHARGE PER UNIT) SC SCH (21:23)
[2017-06-01] MEDS: CATHETER FLUSH 10 ML SYR IV SCH (22:47)
[2017-06-01] MEDS: LORazepam INJ 2 MG/ML (ATIVAN) VIAL IV PRN (22:54)
[2017-06-02] VITALS (19 sets, daily range): BP systolic 123–169; BP diastolic 59–136
[2017-06-02] MEDS: LORazepam INJ 2 MG/ML (ATIVAN) VIAL IV PRN ×2 (00:32→15:08)
[2017-06-02] MEDS: DILTIAZEM DRIP 100 MG/NS 100 ML IV SCH ×4 (00:33→05:57)
[2017-06-02 03:28] LABS: BILIRUBIN,URINE NEGATIVE (NEGATIVE); KETONES,URINE NEGATIVE (NEGATIVE); LEUKOCYTE ESTERASE ,URINE 3+ (NEGATIVE); NITRITE,URINE NEGATIVE (NEGATIVE); PH,URINE 7 (5-9); PROTEIN,URINE 1+ (NEGATIVE); UROBILINOGEN,URINE NORMAL (NORMAL)
[2017-06-02 03:41] LABS: SQUAMOUS EPITHELIAL CELL,UR RARE /HPF
[2017-06-02 05:02] LABS: CALCIUM 9.3 MG/DL (8.5-10.1); CREATININE SERUM 0.92 MG/DL (0.60-1.30); MAGNESIUM 2.1 MG/DL (1.8-2.4); PHOSPHORUS 2.9 MG/DL (2.3-4.7)
[2017-06-02] MEDS: POTASSIUM CL 10MEQ/50ML IVPB 50 ML IV SCH (05:24)
[2017-06-02] MEDS: MAGNESIUM 1 GM/100 ML IVPB 100 ML IV SCH (05:24)
[2017-06-02] MEDS: CATHETER FLUSH 10 ML SYR IV SCH ×3 (05:24→21:35)
[2017-06-02] MEDS: inSUlin (REGULAR) HUMAN 1 UNIT/0.01 ML (CHARGE PER UNIT) SC SCH ×4 (05:25→21:59)
[2017-06-02] MEDS: KCL 20 MEQ TAB (K-DUR) PO SCH (05:25)
[2017-06-02] MEDS: ENOXAPARIN 80 MG/0.8 ML (LOVENOX) SYR SC SCH ×2 (05:57→19:02)
--- NOTE | 2017-06-02 08:36 | Diagnostic Imaging Report ---
Portable upright radiograph of the chest. INDICATION: Dyspnea. COMPARISON: 06/01/2017. FINDINGS: There is cardiomegaly with increasing pulmonary vascular congestion. There is developing left basilar subsegmental infiltrates or atelectasis. No significant effusion. No pneumothorax. IMPRESSION: Cardiomegaly with increasing vascular congestion and developing mild left basilar infiltrates or atelectasis. Dictated by: Dictated on workstation # [id number]
[2017-06-02 08:55] LABS: BASOPHILS % (AUTO) 0 % (0-10); EOSINOPHILS % (AUTO) 0 % (0-10); LYMPHOCYTES # (AUTO) 1.2 X 10^3 (1.0-4.0); LYMPHOCYTES % (AUTO) 12 % (12-44); MEAN CORPUSCULAR HEMOGLOBIN 29 PG (25-34); MEAN CORPUSCULAR HGB CONC 34 G/DL (32-36); MEAN CORPUSCULAR VOLUME 85 FL (80-99); MONOCYTES # (AUTO) 0.6 X 10^3 (0.0-1.0); MONOCYTES % (AUTO) 6 % (0-12); NEUTROPHILS # (AUTO) 7.7 X 10^3 (1.8-7.8); NEUTROPHILS % (AUTO) 81 % (42-75); PLATELET COUNT 213 10^3/uL (130-400); RED BLOOD COUNT 5.11 10^6/uL (4.35-5.85); WHITE BLOOD COUNT 9.5 10^3/uL (4.3-11.0)
[2017-06-02] MEDS: ASPIRIN E.C. 325 MG (ECOTRIN) TABLET PO SCH (09:58)
[2017-06-02] MEDS ORDERED: VIT-8 PO (10:32)
[2017-06-02] MEDS ORDERED: LACT1CAP45 PO (10:32)
[2017-06-02] MEDS ORDERED: MAGN500C16 PO (10:32)
[2017-06-02] MEDS ORDERED: GABA-486 PO (10:32)
[2017-06-02] MEDS ORDERED: MELA3TAB PO (10:32)
[2017-06-02] MEDS ORDERED: FERR-65 PO (10:32)
--- NOTE | 2017-06-02 10:53 | Consultation-Cardiology ---
HPI-Cardiology Cardiology Consultation: Date of Consultation 06/02/17 Date of Admission Attending Physician Anaya Sifuentes MD Admitting Physician Noah Gibbs MD Consulting Physician Agus TRIPLETT MD HPI: Time Seen by Provider: 09:30 Chief Complaint: Atrial fibrillation This is a 82-year-old lady with history of dementia. She is also confused and a poor historian. She denies having previous arrhythmias. She also does not think that she has any significant cardiac pathology. She presented with chest pain and was found to be in atrial fibrillation with rapid ventricular rate. Review of Systems-Cardiology Review of Systems Constitutional: No As described under HPI, No no symptoms reported, No chills, No fever, No lightheadedness, No malaise, No tiredness, No weight loss, No weight gain, No other Eyes: No As described under HPI, No no symptoms reported, No blindness, No blurred vision, No contact lenses, No drainage, No decreased acuity, No foreign body sensation, No glasses, No inflammation, No pain, No photophobia, No previous injury, No shadows, No tunnel vision, No other, No vision change Ears/Nose/Throat: No As described under HPI, No no symptoms reported, No chronic hearing loss, No epistaxis, No ear discharge, No ear pain, No loose teeth, No mouth pain, No mouth swelling, No nasal drainage, No nose pain, No recent hearing loss, No throat pain, No throat swelling, No ulcerations, No other Respiratory: shortness of breath Cardiovascular: chest pain, irregular heart rate Gastrointestinal: No no symptoms reported, No As described under HPI, No abdomen distended, No abdominal pain, No blood streaked bowels, No constipation , No diarrhea, No difficulty swallowing, No nausea, No poor appetite, No poor fluid intake, No rectal bleeding, No vomiting, No other, No nausea/vomiting/ diarrhea, No stool coloration changes Genitourinary: No no symptoms reported, No As described under HPI, No burning, No dysuria, No discharge, No frequency, No flank pain, No hematuria, No incontinence, No pain, No urgency, No other, No urine frequency changes, No urine coloration changes Musculoskeletal: No no symptoms reported, No As describe under HPI, No back pain, No gout, No joint pain, No joint swelling, No muscle pain, No muscle stiffness, No neck pain, No other Skin: No no symptoms reported, No As described under HPI, No change in color, No change in hair/nails, No dryness, No lesions, No lumps, No rash, No other, No skin related problems, No ulcerations, No rash on exposed areas, No ulcerations on exposed areas Psychiatric/Neurological: No As described under HPI, No anxiety, No depression , No emotional problems, No focal weakness, No headache, No no symptoms reported , No numbness, No other, No pre-existing deficit, No seizure, No syncope, No tingling, No tremors, No weakness Hematologic: No no symptoms reported, No As described under HPI, No anemia, No blood clots, No easy bleeding, No easy bruising, No swollen glands, No other, No bleeding abnormalities [id number] Hx Patient Social History Alcohol Use: Denies Use Recreational Drug Use: No Smoking Status: Former Smoker Former smoker/When Quit: Aug 03, 1975 Type Used: Cigarettes 2nd Hand Smoke Exposure: No Recent Foreign Travel: No Recent Infectious Disease Expo: No Hospitalization with Isolation: Denies Physical Abuse Screen: No Sexual Abuse: No Immunizations Up To Date Date of Pneumonia Vaccine: Aug 03, 2013 Past Medical History PMH As described under Assessment. Allergies and Home Medications Allergies Coded Allergies: amitriptyline (Unverified Adverse Reaction, Mild, PSYCH-HYPERACTIVE, 08/27) diazepam (Verified Adverse Reaction, Unknown, 08/02/15) haloperidol (Verified Adverse Reaction, Unknown, 08/02/15) lorazepam (Verified Adverse Reaction, Unknown, 08/02/15) Home Medications Acetaminophen 325 Mg Tablet, 650 MG PO Q4H PRN for PAIN-MILD, (Reported) TAKES 2 (325MG) TABLETS Amlodipine Besylate 10 Mg Tablet, 10 MG PO DAILY, (Reported) Carbidopa/Levodopa 1 Each Tablet, 1 TAB PO BID, (Reported) Cetirizine HCl 10 Mg Tablet, 10 MG PO DAILY, (Reported) Clopidogrel Bisulfate 75 Mg Tablet, 75 MG PO DAILY, (Reported) Dextromethorphan HBr 15 Mg/5 Ml Liquid, 10 ML PO Q6H PRN for COUGH, (Reported) Famotidine 20 Mg Tablet, 20 MG PO BID, (Reported) Ferrous Sulfate 325 Mg Tablet, 325 MG PO BID, (Reported) Furosemide 40 Mg Tablet, 40 MG PO DAILY, (Reported) Gabapentin 100 Mg Capsule, 100 MG PO DAILY, (Reported) Gabapentin 100 Mg Capsule, 200 MG PO HS, (Reported) TAKES 2 (100MG) CAPSULES Lactobacillus Acidophilus 1 Each Capsule, 1 CAP PO DAILY, (Reported) Levothyroxine Sodium 125 Mcg Tablet, 125 MCG PO DAILY, (Reported) Loperamide HCl 2 Mg Tablet, 2 MG PO UD PRN for DIARRHEA, (Reported) Losartan Potassium 100 Mg Tablet, 100 MG PO DAILY, (Reported) Magnesium Oxide 500 Mg Capsule, 500 MG PO 0800,1200,1700, (Reported) Melatonin 3 Mg Tablet, 9 MG PO HS, (Reported) TAKES 3 (3MG) TABLETS Oxcarbazepine 300 Mg Tablet, 300 MG PO HS, (Reported) Potassium Chloride 20 Meq Tab.er.prt, 20 MEQ PO TID, (Reported) Rivastigmine Tartrate 6 Mg Capsule, 6 MG PO BID, (Reported) Ropinirole HCl 1 Mg Tablet, 1 MG PO BID, (Reported) Sennosides 8.6 Mg Tablet, 8.6 MG PO DAILY PRN for CONSTIPATION-5TH LINE, ( Reported) Sertraline HCl 100 Mg Tablet, 100 MG PO DAILY, (Reported) Trazodone HCl 50 Mg Tablet, 50 MG PO HS, (Reported) Vit A/C/E AC/Znox/Cupric Oxide 1 Each Tablet, 1 TAB PO DAILY, (Reported) Physical Exam-Cardiology Physical Exam Vital Signs/I&O Vital Sign - Last 12Hours 06/02/17 06/02/17 06/02/17 06/02/17 04:00 04:00 04:00 05:00 Temp 97.1 Pulse 94 108 Resp 7 16 B/P (MAP) 149/96 130/96 Pulse Ox 96 O2 Delivery Room Air Room Air Room Air 06/02/17 06/02/17 06/02/17 06/02/17 05:57 06:00 07:00 07:09 Temp 97.4 Pulse 112 118 109 112 Resp 30 24 B/P (MAP) 140/65 140/65 130/92 O2 Delivery Room Air Room Air 06/02/17 06/02/17 06/02/17 06/02/17 08:00 08:11 08:30 09:14 Temp 97.7 98.4 Pulse 106 107 99 Resp 12 10 12 B/P (MAP) 157/83 149/85 Pulse Ox 96 98 O2 Delivery Room Air Room Air Room Air Room Air 06/02/17 06/02/17 06/02/17 06/02/17 10:07 12:00 12:00 12:03 Temp 98.5 98.5 98.4 Pulse 102 112 107 Resp 11 8 19 B/P (MAP) 126/91 128/99 133/82 Pulse Ox 98 96 98 O2 Delivery Room Air Room Air Room Air Room Air Intake and Output 06/02/17 00:00 Intake Total 200 ml Output Total 350 ml Balance -150 ml Capillary Refill : Less Than 3 Seconds Constitutional: appears stated age, well-developed HEENT: No PERRL, No normal ENT inspection, No TMs normal, No pharynx normal, No scleral icterus (R), No scleral icterus (L), No pale conjunctivae (R), No pale conjunctivae (L), No photophobia, No TM abnormal (R), No TM abnormal (L), No pharyngeal erythema, No tonsillar exudate, No other, No discharge, No EOMI, No hearing is well preserved, No hard of hearing, No oral hygience is good, No ulceration, No xanthelasmas are seen Neck: No non-tender, No full range of motion, No supple, No normal inspection, No carotid bruit, No limited range of motion, No lymphadenopathy (R), No lymphadenopathy (L), No tender lateral, No tender midline, No thyromegaly, No other, No carotid pulses are 2 + bilaterally, No with good upstrokes Respiratory: No accessory muscle use, No respiratory distress, No chest tender , No chest expansion is symmetric, No chest is bilaterally symmetric, No lungs clear to percussion, No lungs clear to auscultation, No crackles, No rhonchi, No rales, No stridor, No wheezing, No pleural rub, No other Cardiovascular: irregularly irregular, tachycardia, S1 and S2 Gastrointestinal: No tender, No soft, No round, No distended, No pulsatile mass , No organomegaly, No guarding, No rebound, No tenderness, No hernia, No mass, No audible bowel sounds, No abnormal bowel sounds, No abdominal bruits, No spleenomegaly, No other Rectal: deferred Extremities: No normal range of motion, No non-tender, No normal inspection, No pedal edema, No calf tenderness, No normal capillary refill, No pelvis stable , No calf tenderness, No inflammation, No pedal edema, No slow capillary refill , No swelling, No other, No abrasion, No clubbing, No cyanosis, No ecchymosis, No laceration, No no lower extremity edema bilateral, No significant edema, No tenderness, No wound Neurologic/Psychiatric: disoriented x 3, grossly intact Skin: No normal color, No warm/dry, No cyanosis, No cool, No diaphoresis, No damp, No ecchymosis, No jaundice, No mottled, No pallor, No rash, No tattoos/ piercings, No ulcerations, No rash on exposed areas, No ulcerations on exposed areas, No other Data Review Labs Laboratory Tests 06/01/17 16:20: White Blood Count 7.4, Red Blood Count 4.97, Hemoglobin 14.3, Hematocrit 42, Mean Corpuscular Volume 84, Mean Corpuscular Hemoglobin 29, Mean Corpuscular Hemoglobin Concent 34, Red Cell Distribution Width 13.0, Platelet Count 215, Mean Platelet Volume 9.8, Neutrophils (%) (Auto) 75, Lymphocytes (%) (Auto) 17, Monocytes (%) (Auto) 7, Eosinophils (%) (Auto) 1, Basophils (%) (Auto) 0, Neutrophils # (Auto) 5.6, Lymphocytes # (Auto) 1.3, Monocytes # (Auto) 0.5, Eosinophils # (Auto) 0.1, Basophils # (Auto) 0.0, Prothrombin Time 12.5, INR Comment 1.0, Activated Partial Thromboplast Time 25, Sodium Level 141, Potassium Level 4.0, Chloride Level 107, Carbon Dioxide Level 22, Anion Gap 12, Blood Urea Nitrogen 23H, Creatinine 1.29, Estimat Glomerular Filtration Rate 39 , BUN/Creatinine Ratio 18, Glucose Level 145H, Calcium Level 9.6, Magnesium Level 2.1, Total Bilirubin 0.3, Aspartate Amino Transf (AST/SGOT) 12, Alanine Aminotransferase (ALT/SGPT) 8, Alkaline Phosphatase 162H, Total Creatine Kinase 54, Creatine Kinase MB 2.1, Troponin I < 0.30, B-Type Natriuretic Peptide 238.0H , Total Protein 8.0, Albumin 4.7H, Amylase Level 44, Lipase 20, TSH Garner Testing 0.78 06/01/17 21:22: Glucometer 112H 06/01/17 22:10: Troponin I < 0.30 06/02/17 03:20: Urine Color YELLOW, Urine Clarity SLIGHTLY CLOUDY, Urine pH 7, Urine Specific [place] 1.010L, Urine Protein 1+H, Urine Glucose (UA) NEGATIVE, Urine Ketones NEGATIVE, Urine Nitrite NEGATIVE, Urine Bilirubin NEGATIVE, Urine Urobilinogen NORMAL, Urine Leukocyte Esterase 3+H, Urine RBC (Auto) 1+H, Urine RBC RARE, Urine WBC 2-5, Urine Squamous Epithelial Cells RARE, Urine Crystals NONE, Urine Bacteria TRACE, Urine Casts NONE, Urine Mucus SMALLH, Urine Culture Indicated NO 06/02/17 04:15: Sodium Level 140, Potassium Level 4.0, Chloride Level 108H, Carbon Dioxide Level 19L, Anion Gap 13, Blood Urea Nitrogen 20H, Creatinine 0.92, Estimat Glomerular Filtration Rate 58, BUN/Creatinine Ratio 22, Glucose Level 149H, Calcium Level 9.3, Phosphorus Level 2.9, Magnesium Level 2.1 06/02/17 08:47: White Blood Count 9.5, Red Blood Count 5.11, Hemoglobin 14.8, Hematocrit 43, Mean Corpuscular Volume 85, Mean Corpuscular Hemoglobin 29, Mean Corpuscular Hemoglobin Concent 34, Red Cell Distribution Width 13.0, Platelet Count 213, Mean Platelet Volume 10.0, Neutrophils (%) (Auto) 81H, Lymphocytes (%) (Auto) 12 , Monocytes (%) (Auto) 6, Eosinophils (%) (Auto) 0, Basophils (%) (Auto) 0, Neutrophils # (Auto) 7.7, Lymphocytes # (Auto) 1.2, Monocytes # (Auto) 0.6, Eosinophils # (Auto) 0.0, Basophils # (Auto) 0.0 ECG Impression ECG Initial ECG Impression: Atrial Fibrillation w/RVR A/P-Cardiology Assessment/Admission Diagnosis alzheimers, atrial fibrillation, chest pain Plan AF: cardizem infusion. aspirin and plavix. I am not sure the etiology for which she is on aspirin and plavix. Need to discuss with family whether she should be started on oral anticoagulation. risks and benefits need to be discussed especially the risk of bleeding especially with dementia. chest pain: serial troponin negative. BNP 200 - mildly elevated. no CHF on exam. Echocardiogram showed normal LV function. Thank you for your consultation. Please call me if you have any questions. Hunter Triplett MD, FACP, FACC, FSCAI, FHRS, CCDS Interventional Cardiology Cardiac Electrophysiology Vascular Medicine and Endovascular Interventions Clinical Quality Measures AMI/AHF: ASA po Prior to arrival: No DVT/VTE Risk/Contraindication: Risk Factor Score Per Nursin RFS Level Per Nursing on Admit: 2=Moderate Agus TRIPLETT MD Jun 02, 2017 10:53 am
--- NOTE | 2017-06-02 13:25 | Physical Therapy Evaluation ---
PT Evaluation-General Medical Diagnosis Admission Date Jun 01, 2017 at 17:45 Medical Diagnosis: afib with RVR Onset Date: Jun 01, 2017 Therapy Diagnosis Therapy Diagnosis: impaired mobility, strength, endurance, balance Height/Weight Height (Feet): 5 Height (Inches): 9.00 Weight (Pounds): 169 Weight (Ounces): 5.0 Precautions Precautions/Isolations: Fall Prevention, Standard Precautions Referral Physician: Anaya Sifuentes MD Reason for Referral: Evaluation/Treatment Medical History Pertinent Medical History: DM, Dementia, GERD, HTN Additional Medical History former smoker, alzheimers, lives in [place], chronic edema, RLS, dizziness, drug induced dyskinesia, chronic constipation, chronic diarrhea, generalized pain, hypothyroidism, agitation, insomnia, bipolar, depression, anxiety, surg ( cystocele/retrocele, appendectomy, cardiac, gallbladder, hysterectomy) Current History went to ER via EMS with complaints of chest pain Reviewed History: Yes Social History Home: Alf Prior/Core FIM Prior Level of Function Functional [place] Measure 0=Not Assessed/NA 4=Minimal Assistance 1=Total Assistance 5=Supervision or Setup 2=Maximal Assistance 6=Modified [place] 3=Moderate Assistance 7=Complete [place] unknown, patient cannot say if she used an assistive device to walk PT Evaluation-Current Subjective Patient in chair pre tx, has a sitter, has no complaints of pain but states she gets dizzy sometimes. Pt/Family Goals "to get out of this place" Objective Patient Orientation: Confused Attachments: IV ROM/Strength ROM Lower Extremities WNL Strenght Lower Extremities 4/5 gross bilateral lower extremities Neuromuscular (Tone, Coordination, Reflexes) minimally decreased tone and coordination in bilateral lower extremities during ambulation Sensory Vision: Functional Hearing: Impaired Sensation Right Lower Extremit: Intact Sensation Left Lower Extremity: Intact Sensation Lower Extremities patient has no complaints of numbness or tingling Transfers Functional [place] Measure 0=Not Assessed/NA 4=Minimal Assistance 1=Total Assistance 5=Supervision or Setup 2=Maximal Assistance 6=Modified [place] 3=Moderate Assistance 7=Complete [place] Supine to/from Sit: 4 Patient can stand from a seated position with CGA, needs cues for safety and hand placement. She is impulsive and will move before getting lines or obstacles out of the way. Gait Mode of Locomotion: Walk Anticipated Mode of Locomotion: Walk Gait (FIM): 4 Distance: 200' Gait Level of Assist: 4 Gait Persons Needed: 1 Gait Assistive Device: FWW Comments/Gait Description slow, unsteady, needs assist with balance and sometimes to guide the walker Balance Sitting Static: Normal Sitting Dynamic: Normal Standing Static: Fair Standing Dynamic: Fair Treatment seated ex x10 (AP, LAQ, hip flexion) Assessment/Needs Patient has impaired mobility, strength, endurance, balance. She is also confused and at increased risk for a fall. Patient also stated that she was a little dizzy during ambulation but not too bad. Rehab Potential: Fair PT Leadership Development Manager Goals Longterm Goals PT Leadership Development Manager Goals Time Frame: Jun 09, 2017 Transfers (B,C,W/C) (FIM): 5 Gait (FIM): 5 Distance: 300' Gait Level of Assist: 5 Gait Assistive Device: FWW PT Plan Problem List Problem List: Activity Tolerance, Functional Strength, Safety, Balance, Gait, Transfer, Bed Mobility, ROM Treatment/Plan Treatment Plan: Continue Plan of Care Treatment Plan: Bed Mobility, Education, Functional Activity [place], Functional Strength, Gait, Safety, Therapeutic Exercise, Transfers Treatment Duration: Jun 09, 2017 Frequency: 6 times per week Estimated Hrs Per Day: .25 hour per day (15-30 min a day) Patient and/or Family Agrees t: Yes Safety Risks/Education Patient Education: Gait Training, Transfer Techniques, Correct Positioning, Safety Issues Teaching Recipient: Patient Teaching Methods: Demonstration, Discussion Response to Teaching: Reinforcement Needed Discharge Recommendations Plan Patient will perform bed mobility and transfer training, balance and endurance training, functional strengthening, stair training, gait training, and education , to improve functional mobility and independence at home. Therapy D/C Recommendations: Half-Way (TCU/NH) Time/GCodes Time In: 1255 Time Out: 1315 Total Billed Treatment Time: 20 Total Billed Treatment 1 visit [place] 20' SACHA LOPEZ PT Jun 02, 2017 13:25
[2017-06-02] MEDS: MAGNESIUM OXIDE (MAG-OX)400 MG TAB PO SCH (17:08)
--- NOTE | 2017-06-02 18:57 | History & Physicial (CHS) ---
HPI History of Present Illness: 82 yo F with dementia and poor historian that presented to ER with chest pain that started 1 hr prior to arrival to ER. States that her pain was on the left side of her chest. Denies pain into shoulder or jaw. States that she has not had this type of pain before. Patient was found to be in A fib with RVR. At baseline this patient can carry on a conversation and ambulate without assistance but is confused. Her is in the room this AM and states that she is at her baseline this AM. Source: patient, family () Exam Limitations: clinical condition Date seen by provider: Jun 02, 2017 Time Seen by Provider: 09:35 Attending Physician Anaya Sifuentes MD PCP Noah Gibbs MD Consult Date of Admission Jun 01, 2017 at 17:45 Home Medications Home Medications Reviewed patient Home Medication Reconciliation Form Allergies Coded Allergies: amitriptyline (Unverified Adverse Reaction, Mild, PSYCH-HYPERACTIVE, 08/27) diazepam (Verified Adverse Reaction, Unknown, 08/02/15) haloperidol (Verified Adverse Reaction, Unknown, 08/02/15) lorazepam (Verified Adverse Reaction, Unknown, 08/02/15) CTR-[id number]-[id number] Hx Patient Social History Living Status: Lives in [place] Alcohol Use: Denies Use Recreational Drug Use: No Smoking Status: Former Smoker Former smoker/When Quit: Aug 03, 1975 Type Used: Cigarettes 2nd Hand Smoke Exposure: No Recent Foreign Travel: No Contact w/other who traveled: No Recent Hopitalizations: No Recent Infectious Disease Expo: No Physical Abuse Screen: No Sexual Abuse: No Immunizations Up To Date Date of Pneumonia Vaccine: Aug 03, 2013 Past Medical History Dementia Paroxysmal Atrial fibrillation HTN Hypothyroidism Review of Systems (CHC) Constitutional: no symptoms reported, No chills, No fever EENTM: no symptoms reported, No hoarseness, No mouth pain, No mouth swelling, No vision loss Respiratory: cough, No dyspnea on exertion, No hemoptysis, No short of breath Cardiovascular: chest pain, No edema, No palpitations Gastrointestinal: no symptoms reported, No abdominal pain, No constipation, No diarrhea, No nausea, No vomiting Genitourinary: no symptoms reported, No dysuria, No frequency, No hematuria : No Musculoskeletal: neck pain Skin: no symptoms reported, No lesions, No rash Psychiatric/Neurological: Denies Numbness, Denies Tingling, Denies Weakness Reviewed Test Results Reviewed Test Results Lab Laboratory Tests Test 06/01/17 21:22 06/01/17 22:10 06/02/17 03:20 06/02/17 04:15 Range/Units Glucometer 112 H 70-110 MG/DL Troponin I < 0.30 <0.30 NG/ML Urine Color YELLOW Urine Clarity SLIGHTLY CLOUDY Urine pH 7 5-9 Urine Specific [place] 1.010 L 1.016-1.022 Urine Protein 1+ H NEGATIVE Urine Glucose (UA) NEGATIVE NEGATIVE Urine Ketones NEGATIVE NEGATIVE Urine Nitrite NEGATIVE NEGATIVE Urine Bilirubin NEGATIVE NEGATIVE Urine Urobilinogen NORMAL NORMAL MG/DL Urine Leukocyte Esterase 3+ H NEGATIVE Urine RBC (Auto) 1+ H NEGATIVE Urine RBC RARE /HPF Urine WBC 2-5 /HPF Urine Squamous Epithelial Cells RARE /HPF Urine Crystals NONE /LPF Urine Bacteria TRACE /HPF Urine Casts NONE /LPF Urine Mucus SMALL H /LPF Urine Culture Indicated NO Sodium Level 140 135-145 MMOL/L Potassium Level 4.0 3.6-5.0 MMOL/L Chloride Level 108 H 98-107 MMOL/L Carbon Dioxide Level 19 L 21-32 MMOL/L Anion Gap 13 5-14 MMOL/L Blood Urea Nitrogen 20 H 7-18 MG/DL Creatinine 0.92 0.60-1.30 MG/DL Estimat Glomerular Filtration Rate 58 BUN/Creatinine Ratio 22 Glucose Level 149 H 70-105 MG/DL Calcium Level 9.3 8.5-10.1 MG/DL Phosphorus Level 2.9 2.3-4.7 MG/DL Magnesium Level 2.1 1.8-2.4 MG/DL Test 06/02/17 08:47 06/02/17 16:28 Range/Units White Blood Count 9.5 4.3-11.0 10^3/uL Red Blood Count 5.11 4.35-5.85 10^6/uL Hemoglobin 14.8 11.5-16.0 G/DL Hematocrit 43 35-52 % Mean Corpuscular Volume 85 80-99 FL Mean Corpuscular Hemoglobin 29 25-34 PG Mean Corpuscular Hemoglobin Concent 34 32-36 G/DL Red Cell Distribution Width 13.0 10.0-14.5 % Platelet Count 213 130-400 10^3/uL Mean Platelet Volume 10.0 7.4-10.4 FL Neutrophils (%) (Auto) 81 H 42-75 % Lymphocytes (%) (Auto) 12 12-44 % Monocytes (%) (Auto) 6 0-12 % Eosinophils (%) (Auto) 0 0-10 % Basophils (%) (Auto) 0 0-10 % Neutrophils # (Auto) 7.7 1.8-7.8 X 10^3 Lymphocytes # (Auto) 1.2 1.0-4.0 X 10^3 Monocytes # (Auto) 0.6 0.0-1.0 X 10^3 Eosinophils # (Auto) 0.0 0.0-0.3 10^3/uL Basophils # (Auto) 0.0 0.0-0.1 10^3/uL Glucometer 127 H 70-110 MG/DL Radiology Date of Exam: 06/02/17 CHEST 1 VIEW, AP/PA ONLY Portable upright radiograph of the chest. INDICATION: Dyspnea. COMPARISON: 06/01/2017. FINDINGS: There is cardiomegaly with increasing pulmonary vascular congestion. There is developing left basilar subsegmental infiltrates or atelectasis. No significant effusion. No pneumothorax. IMPRESSION: Cardiomegaly with increasing vascular congestion and developing mild left basilar infiltrates or atelectasis. Physical Exam-(CHC) Physical Exam Vital Signs VS - Last 72 Hours, by Label 06/01/17 06/01/17 06/01/17 06/01/17 15:55 18:14 18:50 19:12 Temp 98.1 98.3 Pulse 140 114 124 118 Resp 20 16 16 10 B/P (MAP) 152/96 142/89 135/96 Pulse Ox 96 97 97 97 O2 Delivery Room Air 06/01/17 06/01/17 06/01/17 06/01/17 19:24 19:30 19:30 19:45 Pulse 116 115 117 Resp 12 13 B/P (MAP) 142/90 145/94 Pulse Ox 96 100 100 O2 Delivery Room Air Room Air Room Air 06/01/17 06/01/17 06/01/17 06/01/17 20:00 20:15 20:30 20:30 Pulse 102 103 109 105 Resp 21 13 29 B/P (MAP) 152/89 135/94 149/97 Pulse Ox 96 88 97 O2 Delivery Room Air Room Air Room Air 7/19/17 06/01/17 06/01/17 06/01/17 20:45 21:00 21:30 22:00 Pulse 109 106 107 105 Resp 14 18 11 11 B/P (MAP) 124/82 143/88 129/86 142/90 Pulse Ox 95 94 97 97 O2 Delivery Room Air Room Air Room Air Room Air 06/01/17 06/01/17 06/02/17 06/02/17 22:30 23:00 00:00 00:00 Temp 98.4 Pulse 111 107 Resp 19 16 B/P (MAP) 119/81 145/65 Pulse Ox 95 98 96 O2 Delivery Room Air Room Air Room Air 06/02/17 06/02/17 06/02/17 06/02/17 00:00 00:33 01:00 01:00 Pulse 101 116 102 102 Resp 12 19 B/P (MAP) 136/89 155/62 Pulse Ox 96 O2 Delivery Room Air Room Air 06/02/17 06/02/17 06/02/17 06/02/17 02:00 03:00 04:00 04:00 Temp 97.1 Pulse 107 111 94 Resp 12 18 7 B/P (MAP) 157/93 152/79 149/96 O2 Delivery Room Air Room Air Room Air 06/02/17 06/02/17 06/02/17 06/02/17 04:00 05:00 05:57 06:00 Pulse 108 112 118 Resp 16 30 B/P (MAP) 130/96 140/65 140/65 Pulse Ox 96 O2 Delivery Room Air Room Air Room Air 06/02/17 06/02/17 06/02/17 06/02/17 07:00 07:09 08:00 08:11 Temp 97.4 Pulse 109 112 106 Resp 24 12 B/P (MAP) 130/92 157/83 Pulse Ox 96 O2 Delivery Room Air Room Air Room Air 06/02/17 06/02/17 06/02/17 06/02/17 08:30 09:14 10:07 12:00 Temp 97.7 98.4 98.5 98.5 Pulse 107 99 102 112 Resp 10 12 11 8 B/P (MAP) 149/85 126/91 128/99 Pulse Ox 98 98 O2 Delivery Room Air Room Air Room Air Room Air 06/02/17 06/02/17 06/02/17 06/02/17 12:00 12:03 13:00 16:00 Temp 98.4 Pulse 107 104 Resp 19 B/P (MAP) 133/82 Pulse Ox 96 98 96 O2 Delivery Room Air Room Air Room Air 06/02/17 06/02/17 06/02/17 16:00 17:00 18:00 Temp 99.2 Pulse 116 111 109 Resp 26 14 15 B/P (MAP) 128/86 132/95 129/77 Pulse Ox 98 O2 Delivery Room Air Room Air Room Air Capillary Refill : Less Than 3 Seconds General Appearance: WD/WN, no apparent distress HEENT: PERRL/EOMI Neck: non-tender, full range of motion, supple, normal inspection Respiratory: chest non-tender, lungs clear, normal breath sounds, no respiratory distress, no accessory muscle use Cardiovascular: normal peripheral pulses, regular rate, rhythm, no edema, no murmur Gastrointestinal: normal bowel sounds, non tender, soft Back: no CVA tenderness Extremities: normal range of motion, non-tender, no pedal edema, no calf tenderness, normal capillary refill Neurologic/Psychiatric: 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 II-XII nml as tested, no motor/sensory deficits, alert, other (Oriented to person and place) Skin: normal color, warm/dry Lymphatic: no adenopathy Assessment/Plan Assessment/Plan Plan 82 yo F that was admitted for chest pain found to be in atrial fibrillation with RVR Plan Atypical Chest pain - Likely related to RVR, CE neg - Pain resolved this AM - Continue daily ASA Atrial Fibrillation with RVR - Converted back to SR with Cardizem drip - Cardiology consulted - Consider anticoagulation given Wells Score HTN - Restarted home medications today Dementia: Patient is at her baseline FEN: Reg diet DVT PPX Lovenox Dispo: Admit to ICU while on drip, will likely d/c back to NH tomorrow Diagnosis/Problems: Clinical Quality Measures AMI/AHF: ASA po Prior to arrival: No DVT/VTE Risk/Contraindication: Risk Factor Score Per Nursin RFS Level Per Nursing on Admit: 2=Moderate Copy Copies To 1: Polina BAEZ HOLLY R MD Jun 02, 2017 18:57
[2017-06-02] MEDS: RIVASTIGMINE 1.5 MG (EXELON) CAP PO SCH (20:32)
[2017-06-02] MEDS: SINEMET 25/100 (CARBIDOPA/LEVODOPA) TAB PO SCH (20:33)
[2017-06-02] MEDS: rOPINIRole 1 MG (REQUIP) TABLET PO SCH (20:33)
[2017-06-02] MEDS: OXcarbazepine (TRILEPTAL) 300 MG TAB PO SCH (20:33)
[2017-06-02] MEDS: ACETAMINOPHEN 325 MG TABLET/CAPLET (TYLENOL) PO PRN (20:33)
[2017-06-02] MEDS: FAMOTIDINE 20 MG (PEPCID) TABLET PO SCH (20:33)
[2017-06-02] MEDS: traZODone 50 MG (DESYREL) TAB PO SCH (20:33)
[2017-06-03] VITALS (21 sets, daily range): BP systolic 104–184; BP diastolic 8–114
[2017-06-03 04:28] LABS: BASOPHILS % (AUTO) 0 % (0-10); EOSINOPHILS # (AUTO) 0.1 10^3/uL (0.0-0.3); EOSINOPHILS % (AUTO) 2 % (0-10); LYMPHOCYTES % (AUTO) 25 % (12-44); MEAN CORPUSCULAR HEMOGLOBIN 29 PG (25-34); MEAN CORPUSCULAR HGB CONC 34 G/DL (32-36); MEAN CORPUSCULAR VOLUME 85 FL (80-99); MEAN PLATELET VOLUME 10.2 FL (7.4-10.4); MONOCYTES # (AUTO) 0.6 X 10^3 (0.0-1.0); MONOCYTES % (AUTO) 7 % (0-12); NEUTROPHILS # (AUTO) 5.1 X 10^3 (1.8-7.8); NEUTROPHILS % (AUTO) 66 % (42-75); PLATELET COUNT 198 10^3/uL (130-400); RED BLOOD COUNT 4.77 10^6/uL (4.35-5.85); RED CELL DISTRIBUTION WIDTH 13.1 % (10.0-14.5); WHITE BLOOD COUNT 7.8 10^3/uL (4.3-11.0)
[2017-06-03 05:17] LABS: ANION GAP 15 MMOL/L (5-14); BLOOD UREA NITROGEN 24 MG/DL (7-18); BUN/CREATININE RATIO 29; CALCIUM 8.8 MG/DL (8.5-10.1); CARBON DIOXIDE 17 MMOL/L (21-32); CHLORIDE 110 MMOL/L (98-107); CREATININE SERUM 0.84 MG/DL (0.60-1.30); GFR ESTIMATED > 60; GLUCOSE 112 MG/DL (70-105); PHOSPHORUS 3.2 MG/DL (2.3-4.7); POTASSIUM 3.7 MMOL/L (3.6-5.0); SODIUM 142 MMOL/L (135-145)
[2017-06-03] MEDS: CATHETER FLUSH 10 ML SYR IV SCH ×3 (05:48→20:35)
[2017-06-03] MEDS: inSUlin (REGULAR) HUMAN 1 UNIT/0.01 ML (CHARGE PER UNIT) SC SCH ×4 (05:49→20:37)
[2017-06-03] MEDS: POTASSIUM CL 10MEQ/50ML IVPB 50 ML IV SCH (05:50)
[2017-06-03] MEDS: MAGNESIUM 1 GM/100 ML IVPB 100 ML IV SCH (05:51)
[2017-06-03] MEDS: KCL 20 MEQ TAB (K-DUR) PO SCH (05:51)
[2017-06-03] MEDS: ENOXAPARIN 80 MG/0.8 ML (LOVENOX) SYR SC SCH (05:56)
--- NOTE | 2017-06-03 07:52 | Diagnostic Imaging Report ---
INDICATION: Dyspnea COMPARISON: 06/02/2017 FINDINGS: Single frontal view of the chest demonstrates mildly prominent cardiac silhouette. Pulmonary vasculature, however, is within normal limits. The lungs are well aerated and clear. No large pleural effusion or pneumothorax is seen. The visualized osseous structures show no acute abnormalities. IMPRESSION: 1. Mild cardiomegaly, but no evidence of overt failure or focal infiltrate. Dictated by: Dictated on workstation # [id number]
[2017-06-03] MEDS: LORATADINE (CLARITIN) 10 MG TAB PO SCH (08:04)
[2017-06-03] MEDS: CLOPIDOGREL 75 MG (PLAVIX) TABLET PO SCH (08:04)
[2017-06-03] MEDS: amLODIPine 10 MG (NORVASC) TAB PO SCH (08:04)
[2017-06-03] MEDS: RIVASTIGMINE 1.5 MG (EXELON) CAP PO SCH ×2 (08:04→20:50)
[2017-06-03] MEDS: rOPINIRole 1 MG (REQUIP) TABLET PO SCH ×2 (08:05→20:50)
[2017-06-03] MEDS: SERTRALINE 100 MG (ZOLOFT) TAB PO SCH (08:05)
[2017-06-03] MEDS: LOSARTAN 50 MG (COZAAR) TAB PO SCH (08:05)
[2017-06-03] MEDS: ASPIRIN E.C. 325 MG (ECOTRIN) TABLET PO SCH (08:05)
[2017-06-03] MEDS: LEVOTHYROXINE 125 MCG (LEVOTHROID) TABLET PO SCH (08:05)
[2017-06-03] MEDS: SINEMET 25/100 (CARBIDOPA/LEVODOPA) TAB PO SCH ×2 (08:06→20:50)
[2017-06-03] MEDS: FUROSEMIDE 40 MG (LASIX) TAB PO SCH (08:06)
[2017-06-03] MEDS: FAMOTIDINE 20 MG (PEPCID) TABLET PO SCH ×2 (08:06→20:50)
[2017-06-03] MEDS: ACETAMINOPHEN 325 MG TABLET/CAPLET (TYLENOL) PO PRN ×2 (08:06→20:51)
[2017-06-03] MEDS: GABAPENTIN 100 MG (NEURONTIN) CAP PO SCH (08:06)
[2017-06-03] MEDS: MAGNESIUM OXIDE (MAG-OX)400 MG TAB PO SCH ×3 (08:07→17:56)
[2017-06-03] MEDS: DILTIAZEM DRIP 100 MG/NS 100 ML IV SCH ×4 (08:07→18:39)
[2017-06-03] MEDS: DILTIAZEM 120 MG (CARDIZEM CD) CAP PO SCH (09:08)
--- NOTE | 2017-06-03 11:37 | Progress Note (SOAP) ---
Subjective Subjective/Events-last exam Patient very upset this AM because she thinks that her does not care about her. States that at this point she does not care if she lives. She denies any chest pain overnight. Sitting up in chair with some dizziness. Review of Systems Date Seen by Provider: Jun 03, 2017 Time Seen by Provider: 09:15 General: Malaise HEENT: No Head Aches, No Visual Changes Pulmonary: No Dyspnea, No Cough Cardiovascular: No: Chest Pain, Palpitations Gastrointestinal: No: Abdominal Pain, Nausea, Vomiting Genitourinary: No Dysuria, No Frequency, No Incontinence Neurological: No: Weakness Objective Exam Last Set of Vital Signs Vital Signs Date Time Temp Pulse Resp B/P (MAP) Pulse Ox O2 Delivery O2 Flow Rate FiO2 06/03/17 08:07 118 06/03/17 08:00 97.7 17 144/99 99 Room Air Capillary Refill : Less Than 3 Seconds I&O Intake and Output 06/03/17 00:00 Intake Total 1750 ml Output Total 1450 ml Balance 300 ml Intake Oral 1650 ml IV Total 100 ml Output Urine Total 1450 ml # Voids 5 General: Alert, Mild Distress (crying and upset at ) HEENT: Mucous Memb Moist/[place] Lungs: Clear to Auscultation, Normal Air Movement Heart: Regular Rate, No Murmurs Abdomen: Normal Bowel Sounds, Soft, No Tenderness Extremities: No Edema, No Tenderness/Swelling Results/Procedures Lab Laboratory Tests 06/02/17 11:40: Glucometer 186H 06/02/17 16:28: Glucometer 127H 06/02/17 21:20: Glucometer 240H 06/03/17 03:52: White Blood Count 7.8, Red Blood Count 4.77, Hemoglobin 13.9, Hematocrit 41, Mean Corpuscular Volume 85, Mean Corpuscular Hemoglobin 29, Mean Corpuscular Hemoglobin Concent 34, Red Cell Distribution Width 13.1, Platelet Count 198, Mean Platelet Volume 10.2, Neutrophils (%) (Auto) 66, Lymphocytes (%) (Auto) 25 , Monocytes (%) (Auto) 7, Eosinophils (%) (Auto) 2, Basophils (%) (Auto) 0, Neutrophils # (Auto) 5.1, Lymphocytes # (Auto) 2.0, Monocytes # (Auto) 0.6, Eosinophils # (Auto) 0.1, Basophils # (Auto) 0.0, Sodium Level 142, Potassium Level 3.7, Chloride Level 110H, Carbon Dioxide Level 17L, Anion Gap 15H, Blood Urea Nitrogen 24H, Creatinine 0.84, Estimat Glomerular Filtration Rate > 60, BUN /Creatinine Ratio 29, Glucose Level 112H, Calcium Level 8.8, Phosphorus Level 3.2, Magnesium Level 2.0 Microbiology 06/01/17 MRSA Screen - Final, Complete MRSA not isolated Radiology Date of Exam: 06/02/17 CHEST 1 VIEW, AP/PA ONLY Portable upright radiograph of the chest. INDICATION: Dyspnea. COMPARISON: 06/01/2017. FINDINGS: There is cardiomegaly with increasing pulmonary vascular congestion. There is developing left basilar subsegmental infiltrates or atelectasis. No significant effusion. No pneumothorax. IMPRESSION: Cardiomegaly with increasing vascular congestion and developing mild left basilar infiltrates or atelectasis. Assessment/Plan Assessment/Plan Plan 82 yo F that was admitted for chest pain found to be in atrial fibrillation with RVR Plan Atypical Chest pain: Resolved - Likely related to RVR, CE neg - Pain resolved this AM - Continue daily ASA Atrial Fibrillation with RVR - Started PO rate control medication today - Cardiology consulted - Consider anticoagulation given Wells Score HTN - Restarted home medications today Dementia: Patient is at her baseline FEN: Reg diet DVT PPX Lovenox Dispo: Continue admission to Cardiac step down until able to titrate off Cardizem drip, Back to NH when rate is better control Diagnosis/Problems: Clinical Quality Measures AMI/AHF: ASA po Prior to arrival: No DVT/VTE Risk/Contraindication: Risk Factor Score Per Nursin RFS Level Per Nursing on Admit: 2=Moderate YELENA MAN MD Jun 03, 2017 11:37
--- NOTE | 2017-06-03 12:31 | Cardiology Progress Note ---
Cardiology SOAP Progress Note Subjective: No cardiac complaints. She doesn't remember that we met yesterday and discussed her condition. Objective: I&O/Vital Signs Vital Sign - Last 12Hours 06/03/17 06/03/17 06/03/17 06/03/17 01:00 01:00 01:00 02:00 Temp 97.8 97.8 Pulse 82 50 90 89 Resp 14 14 B/P (MAP) 146/73 118/73 Pulse Ox 96 96 O2 Delivery Room Air Room Air 06/03/17 06/03/17 06/03/17 06/03/17 03:20 04:00 04:00 04:55 Temp 97.8 98.4 Pulse 82 113 112 Resp 14 16 B/P (MAP) 118/73 133/85 Pulse Ox 96 96 96 O2 Delivery Room Air Room Air Room Air 06/03/17 06/03/17 06/03/17 06/03/17 05:21 06:00 06:20 07:00 Temp 98.5 98.4 Pulse 112 113 120 Resp 18 14 B/P (MAP) 145/87 137/105 Pulse Ox 97 97 O2 Delivery Room Air Room Air 06/03/17 06/03/17 06/03/17 08:00 08:00 08:07 Temp 97.7 Pulse 118 118 Resp 17 B/P (MAP) 144/99 Pulse Ox 99 96 O2 Delivery Room Air Room Air Intake and Output 06/03/17 00:00 Intake Total 1330 ml Output Total 800 ml Balance 530 ml Weight (Pounds): 168 Weight (Ounces): 6.0 Weight (Calculated Kilograms): [id number] Constitutional: appears stated age, well-developed Respiratory: No accessory muscle use, No respiratory distress, No chest tender , No chest expansion is symmetric, No chest is bilaterally symmetric, No lungs clear to percussion, No lungs clear to auscultation, No crackles, No rhonchi, No rales, No stridor, No wheezing, No pleural rub, No other Cardiovascular: irregularly irregular, tachycardia, S1 and S2 Gastrointestional: No tender, No soft, No round, No distended, No pulsatile mass, No organomegaly, No guarding, No rebound, No tenderness, No hernia, No mass, No audible bowel sounds, No abnormal bowel sounds, No abdominal bruits, No spleenomegaly, No other Extremities: No normal range of motion, No non-tender, No normal inspection, No pedal edema, No calf tenderness, No normal capillary refill, No pelvis stable , No calf tenderness, No inflammation, No pedal edema, No slow capillary refill , No swelling, No other, No abrasion, No clubbing, No cyanosis, No ecchymosis, No laceration, No no lower extremity edema bilateral, No significant edema, No tenderness, No wound Neurologic/Psychiatric: disoriented x 3, grossly intact Skin: No normal color, No warm/dry, No cyanosis, No cool, No diaphoresis, No damp, No ecchymosis, No jaundice, No mottled, No pallor, No rash, No tattoos/ piercings, No ulcerations, No rash on exposed areas, No ulcerations on exposed areas, No other Results/Procedures: Labs Laboratory Tests 06/02/17 16:28: Glucometer 127H 06/02/17 21:20: Glucometer 240H 06/03/17 03:52: White Blood Count 7.8, Red Blood Count 4.77, Hemoglobin 13.9, Hematocrit 41, Mean Corpuscular Volume 85, Mean Corpuscular Hemoglobin 29, Mean Corpuscular Hemoglobin Concent 34, Red Cell Distribution Width 13.1, Platelet Count 198, Mean Platelet Volume 10.2, Neutrophils (%) (Auto) 66, Lymphocytes (%) (Auto) 25 , Monocytes (%) (Auto) 7, Eosinophils (%) (Auto) 2, Basophils (%) (Auto) 0, Neutrophils # (Auto) 5.1, Lymphocytes # (Auto) 2.0, Monocytes # (Auto) 0.6, Eosinophils # (Auto) 0.1, Basophils # (Auto) 0.0, Sodium Level 142, Potassium Level 3.7, Chloride Level 110H, Carbon Dioxide Level 17L, Anion Gap 15H, Blood Urea Nitrogen 24H, Creatinine 0.84, Estimat Glomerular Filtration Rate > 60, BUN /Creatinine Ratio 29, Glucose Level 112H, Calcium Level 8.8, Phosphorus Level 3.2, Magnesium Level 2.0 Microbiology 06/01/17 MRSA Screen - Final, Complete MRSA not isolated A/P: Assessment/Dx: alzheimers, atrial fibrillation, chest pain Plan: AF: cardizem infusion; start by mouth Cardizem 120 mg CD. Plan to gradually taper off Cardizem with heart rate control on by mouth Cardizem. Discussed at length with the family about risks and benefits of starting oral anticoagulation therapy the concern is her advanced dementia, dizziness and risk of fall and bleeding. Therefore she may not be the best candidate for oral anticoagulation therapy. In that case we will continue aspirin and Plavix alone. The family will make the final decision and will let us know. chest pain: serial troponin negative. BNP 200 - mildly elevated. no CHF on exam. Echocardiogram showed normal LV function. Thank you for your consultation. Please call me if you have any questions. Hunter Triplett MD, FACP, FACC, FSCAI, FHRS, CCDS Interventional Cardiology Cardiac Electrophysiology Vascular Medicine and Endovascular Interventions Clinical Quality Measures AMI/AHF: ASA po Prior to arrival: Agus Davis MD Jun 03, 2017 12:31
--- NOTE | 2017-06-03 14:41 | Physical Therapy Daily Note ---
PT Daily Note-Current Subjective Pt. agrees to Rx with much explanation reorienting and encouragement. c/o she is cold but no c/o pain Pain Numeric Pain Scale: 0-No Pain Mental Status Patient Orientation: Confused Attachments: IV pt. needs reoriented many times to place and time as well as situation Transfers Functional [place] Measure 0=Not Assessed/NA 4=Minimal Assistance 1=Total Assistance 5=Supervision or Setup 2=Maximal Assistance 6=Modified [place] 3=Moderate Assistance 7=Complete IndependenceIRFPAI Quality Coding Scale 6 Independent with activity with or without an assistive device 5 Patient requires set up or clean up by helper. Patient completes activity by themselves 4 Supervision or touching assist (CGA). [place] provide cues , steadying assist 3 The helper provides less than half the effort to complete the activity 2 The helper provides more than half the effort to complete the activity 1 Dependent. The helper does all the effort to complete an activity 7 Patient refused to complete or attempt activity 9 The patient did not perform the activity before the current illness or injury 88 Not attempted due to Medical conditions or safety concerns Transfers (B, C, W/C) (FIM): 5 all TRFs CGA to SBA Gait Training Gait (FIM): 5 Gait Assistive Device: FWW 450plus, FWW, pt. requires education in how to use FWW eze for turns, no LOB, good pattern, good alignment Exercises Seated Therapy Exercises: Ankle pumps, Sit to stand, Long arc quads Seated Reps: 8 Assessment Current Status: Good Progress pts. confusion limits Rx PT Pork Cutlet Maker Goals Intermediate Goals PT Pork Cutlet Maker Goals Time Frame: Jun 09, 2017 Transfers (B,C,W/C) (FIM): 5 Gait (FIM): 5 Distance: 300' Gait Level of Assist: 5 Gait Assistive Device: FWW PT Plan Treatment/Plan Treatment Plan: Continue Plan of Care Treatment Plan: Bed Mobility, Education, Functional Activity Davis, Functional Strength, Gait, Safety, Therapeutic Exercise, Transfers Treatment Duration: Jun 09, 2017 Frequency: 6 times per week Estimated Hrs Per Day: .25 hour per day (15-30 min a day) Patient and/or Family Agrees t: Yes Safety Risks/Education Patient Education: Gait Training, Transfer Techniques Teaching Recipient: Patient Teaching Methods: Demonstration, Discussion Response to Teaching: Verbalize Understanding, Unable to Comprehend, Reinforcement Needed Time/GCodes Time In: 1410 Time Out: 1435 Total Billed Treatment Time: 25 Total Billed Treatment 1,GT15m,FA10m G Codes Necessary: No CASS FORTE INTELLIGENCE OFFICER BASIC Jun 03, 2017 14:41
[2017-06-03] MEDS ORDERED: DILTIAZEM 60 MG (CARDIZEM) TAB PO SCH (15:28)
[2017-06-03] MEDS: LORazepam INJ 2 MG/ML (ATIVAN) VIAL IV PRN (18:31)
[2017-06-03] MEDS: OXcarbazepine (TRILEPTAL) 300 MG TAB PO SCH (20:50)
[2017-06-03] MEDS: traZODone 50 MG (DESYREL) TAB PO SCH (20:51)
[2017-06-04] VITALS (22 sets, daily range): BP systolic 86–165; BP diastolic 49–105
[2017-06-04 04:49] LABS: BASOPHILS % (AUTO) 0 % (0-10); EOSINOPHILS # (AUTO) 0.1 10^3/uL (0.0-0.3); EOSINOPHILS % (AUTO) 2 % (0-10); LYMPHOCYTES # (AUTO) 1.1 X 10^3 (1.0-4.0); LYMPHOCYTES % (AUTO) 17 % (12-44); MEAN CORPUSCULAR HEMOGLOBIN 29 PG (25-34); MEAN CORPUSCULAR HGB CONC 34 G/DL (32-36); MEAN CORPUSCULAR VOLUME 85 FL (80-99); MEAN PLATELET VOLUME 10.1 FL (7.4-10.4); MONOCYTES # (AUTO) 0.6 X 10^3 (0.0-1.0); MONOCYTES % (AUTO) 9 % (0-12); NEUTROPHILS # (AUTO) 4.5 X 10^3 (1.8-7.8); NEUTROPHILS % (AUTO) 72 % (42-75); PLATELET COUNT 195 10^3/uL (130-400); RED BLOOD COUNT 4.35 10^6/uL (4.35-5.85); RED CELL DISTRIBUTION WIDTH 12.8 % (10.0-14.5); WHITE BLOOD COUNT 6.3 10^3/uL (4.3-11.0)
[2017-06-04 05:11] LABS: CALCIUM 9.1 MG/DL (8.5-10.1); CREATININE SERUM 0.91 MG/DL (0.60-1.30); MAGNESIUM 1.9 MG/DL (1.8-2.4); PHOSPHORUS 3.2 MG/DL (2.3-4.7); POTASSIUM 3.6 MMOL/L (3.6-5.0)
[2017-06-04] MEDS: CATHETER FLUSH 10 ML SYR IV SCH ×2 (05:27→14:10)
[2017-06-04] MEDS: inSUlin (REGULAR) HUMAN 1 UNIT/0.01 ML (CHARGE PER UNIT) SC SCH ×4 (05:29→21:15)
[2017-06-04] MEDS: MAGNESIUM 1 GM/100 ML IVPB 100 ML IV SCH (05:29)
[2017-06-04] MEDS: POTASSIUM CL 10MEQ/50ML IVPB 50 ML IV SCH (05:30)
[2017-06-04] MEDS: KCL 20 MEQ TAB (K-DUR) PO SCH (05:32)
[2017-06-04] MEDS ORDERED: KCL 20 MEQ TAB (K-DUR) PO ONE (05:45)
--- NOTE | 2017-06-04 07:52 | Diagnostic Imaging Report ---
INDICATION: Dyspnea. COMPARISON: 06/03/2017. FINDINGS: Right basilar mixed ill-defined nodular and linear opacities have not significantly changed. Retrocardiac linear opacities are also similar. No new airspace disease in the visible lung. Posterior lower lobes are poorly evaluated on portable radiography. Stable cardiomegaly with mild central vascular redistribution. IMPRESSION: 1. Stable basilar linear opacities favoring subsegmental atelectasis. No evidence of stas pulmonary edema. 2. Stable cardiomegaly. Dictated by: Dictated on workstation # [id number]
[2017-06-04] MEDS: LOSARTAN 50 MG (COZAAR) TAB PO SCH (08:25)
[2017-06-04] MEDS: DILTIAZEM 120 MG (CARDIZEM CD) CAP PO SCH (08:25)
[2017-06-04] MEDS: LEVOTHYROXINE 125 MCG (LEVOTHROID) TABLET PO SCH (08:25)
[2017-06-04] MEDS: ASPIRIN E.C. 325 MG (ECOTRIN) TABLET PO SCH (08:25)
[2017-06-04] MEDS: SINEMET 25/100 (CARBIDOPA/LEVODOPA) TAB PO SCH ×2 (08:25→19:55)
[2017-06-04] MEDS: LORATADINE (CLARITIN) 10 MG TAB PO SCH (08:25)
[2017-06-04] MEDS: FAMOTIDINE 20 MG (PEPCID) TABLET PO SCH ×2 (08:25→19:55)
[2017-06-04] MEDS: rOPINIRole 1 MG (REQUIP) TABLET PO SCH ×2 (08:25→19:54)
[2017-06-04] MEDS: SERTRALINE 100 MG (ZOLOFT) TAB PO SCH (08:25)
[2017-06-04] MEDS: amLODIPine 10 MG (NORVASC) TAB PO SCH (08:25)
[2017-06-04] MEDS: MAGNESIUM OXIDE (MAG-OX)400 MG TAB PO SCH ×3 (08:25→17:28)
[2017-06-04] MEDS: GABAPENTIN 100 MG (NEURONTIN) CAP PO SCH (08:25)
[2017-06-04] MEDS: FUROSEMIDE 40 MG (LASIX) TAB PO SCH (08:25)
[2017-06-04] MEDS: RIVASTIGMINE 1.5 MG (EXELON) CAP PO SCH ×2 (08:27→19:55)
[2017-06-04] MEDS: CLOPIDOGREL 75 MG (PLAVIX) TABLET PO SCH (08:27)
[2017-06-04] MEDS ORDERED: ENOXAPARIN 40 MG/0.4 ML (LOVENOX) SYR SC SCH (09:00)
[2017-06-04] MEDS: DILTIAZEM DRIP 100 MG/NS 100 ML IV SCH ×2 (10:05)
[2017-06-04] MEDS ORDERED: DILTIAZEM 120 MG (CARDIZEM CD) CAP PO NR (11:24)
[2017-06-04] MEDS ORDERED: meTOproloL SUCCINATE 50 MG (TOPROL XL) TAB PO NR (11:25)
--- NOTE | 2017-06-04 12:35 | Progress Note-Hospitalist ---
Progress Note Progress Notes/Assess & Plan Date Seen 06/04/17 Time Seen by Provider: 11:00 Diagonsis/Assessment & Plan Patient doing much better and up in chair and family at bedside Attempting to change Cardizem to oral form and wean off IV drip Heart rate is 116 currently Patient needs a sleeping aid Bowels are moving Denies any pain currently No fever, vital signs stable, pleasant, improved Irregular irregular with tachycardic rate Clear to auscultation bilaterally No edema Laboratory Tests 06/04/17 03:38 Assessment: Chest pain without evidence of acute coronary syndrome Atrial fibrillation with rapid ventricular response very difficult to control Insomnia Diabetes mellitus Plan: I appreciate cardiology expertise Monitor blood sugar Melatonin and Remeron tonight TYE NIELSEN DO Jun 04, 2017 12:35
--- NOTE | 2017-06-04 12:43 | Cardiology Progress Note ---
Cardiology SOAP Progress Note Subjective: No complaints. In much better mood today Objective: I&O/Vital Signs Vital Sign - Last 12Hours 06/04/17 06/04/17 06/04/17 06/04/17 01:00 01:00 02:18 03:22 Pulse 58 61 65 65 Resp 12 11 21 B/P (MAP) 103/58 108/66 111/70 Pulse Ox 94 97 94 O2 Delivery Room Air Room Air Room Air 06/04/17 06/04/17 06/04/17 06/04/17 04:00 04:00 04:03 05:05 Temp 97.6 Pulse 64 65 Resp 12 11 B/P (MAP) 94/51 107/73 Pulse Ox 98 94 94 O2 Delivery Room Air Room Air Room Air 06/04/17 06/04/17 06/04/17 06/04/17 06:04 07:00 07:00 08:00 Pulse 57 114 117 Resp 8 9 B/P (MAP) 86/52 146/90 Pulse Ox 97 98 99 O2 Delivery Room Air Room Air Room Air 06/04/17 06/04/17 06/04/17 06/04/17 08:00 09:00 10:00 11:00 Temp 97.6 Pulse 116 111 116 117 Resp 16 16 6 21 B/P (MAP) 135/82 128/84 130/85 132/80 Pulse Ox 99 98 97 O2 Delivery Room Air Room Air Room Air Room Air 06/04/17 06/04/17 11:23 11:58 Temp 98.1 Pulse 118 Resp 18 B/P (MAP) 132/80 Pulse Ox 99 99 O2 Delivery Room Air Room Air Intake and Output 06/04/17 00:00 Intake Total 1380 ml Output Total 2650 ml Balance -1270 ml Weight (Pounds): 168 Weight (Ounces): 8.0 Weight (Calculated Kilograms): 76.372331 Constitutional: appears stated age, well-developed Respiratory: No accessory muscle use, No respiratory distress, No chest tender , No chest expansion is symmetric, No chest is bilaterally symmetric, No lungs clear to percussion, No lungs clear to auscultation, No crackles, No rhonchi, No rales, No stridor, No wheezing, No pleural rub, No other Cardiovascular: irregularly irregular, tachycardia, S1 and S2 Gastrointestional: No tender, No soft, No round, No distended, No pulsatile mass, No organomegaly, No guarding, No rebound, No tenderness, No hernia, No mass, No audible bowel sounds, No abnormal bowel sounds, No abdominal bruits, No spleenomegaly, No other Extremities: No normal range of motion, No non-tender, No normal inspection, No pedal edema, No calf tenderness, No normal capillary refill, No pelvis stable , No calf tenderness, No inflammation, No pedal edema, No slow capillary refill , No swelling, No other, No abrasion, No clubbing, No cyanosis, No ecchymosis, No laceration, No no lower extremity edema bilateral, No significant edema, No tenderness, No wound Neurologic/Psychiatric: disoriented x 3, grossly intact Skin: No normal color, No warm/dry, No cyanosis, No cool, No diaphoresis, No damp, No ecchymosis, No jaundice, No mottled, No pallor, No rash, No tattoos/ piercings, No ulcerations, No rash on exposed areas, No ulcerations on exposed areas, No other Results/Procedures: Labs Laboratory Tests 06/03/17 12:43: Glucometer 115H 06/03/17 15:51: Glucometer 153H 06/03/17 20:33: Glucometer 167H 06/04/17 03:38: White Blood Count 6.3, Red Blood Count 4.35, Hemoglobin 12.6, Hematocrit 37, Mean Corpuscular Volume 85, Mean Corpuscular Hemoglobin 29, Mean Corpuscular Hemoglobin Concent 34, Red Cell Distribution Width 12.8, Platelet Count 195, Mean Platelet Volume 10.1, Neutrophils (%) (Auto) 72, Lymphocytes (%) (Auto) 17 , Monocytes (%) (Auto) 9, Eosinophils (%) (Auto) 2, Basophils (%) (Auto) 0, Neutrophils # (Auto) 4.5, Lymphocytes # (Auto) 1.1, Monocytes # (Auto) 0.6, Eosinophils # (Auto) 0.1, Basophils # (Auto) 0.0, Sodium Level 139, Potassium Level 3.6, Chloride Level 107, Carbon Dioxide Level 20L, Anion Gap 12, Blood Urea Nitrogen 22H, Creatinine 0.91, Estimat Glomerular Filtration Rate 59, BUN/ Creatinine Ratio 24, Glucose Level 142H, Calcium Level 9.1, Phosphorus Level 3.2 , Magnesium Level 1.9 Microbiology 06/01/17 MRSA Screen - Final, Complete MRSA not isolated A/P: Assessment/Dx: alzheimers, atrial fibrillation, chest pain Plan: AF: Still with rapid ventricular rate. On Cardizem infusion 5 mg an hour. Also gave Cardizem CD 120 mg daily. Systolic blood pressure 130 mmHg. Will increase Cardizem to 240 mg a day. We'll add Toprol-XL 50 mg today. Try to taper off Cardizem infusion if heart rate consistently below 100 BPM. I again discussed at length with the and daughter. They would like to start oral anticoagulation therapy. They do understands that risks associated with bleeding and fall. I will start Xarelto. BNP 200 - mildly elevated. no CHF on exam. Echocardiogram showed normal LV function. Thank you for your consultation. Please call me if you have any questions. Hunter Triplett MD, FACP, FACC, FSCAI, FHRS, CCDS Interventional Cardiology Cardiac Electrophysiology Vascular Medicine and Endovascular Interventions Clinical Quality Measures AMI/AHF: ASA po Prior to arrival: Agus Davis MD Jun 04, 2017 12:43 pm
--- NOTE | 2017-06-04 12:54 | Physical Therapy Daily Note ---
PT Daily Note-Current Subjective Agrees to walk but wants to order lunch first. Pleasant but confused about situation and place Pain Numeric Pain Scale: 0-No Pain Mental Status Patient Orientation: Confused Attachments: IV Transfers Functional [place] Measure 0=Not Assessed/NA 4=Minimal Assistance 1=Total Assistance 5=Supervision or Setup 2=Maximal Assistance 6=Modified [place] 3=Moderate Assistance 7=Complete IndependenceIRFPAI Quality Coding Scale 6 Independent with activity with or without an assistive device 5 Patient requires set up or clean up by helper. Patient completes activity by themselves 4 Supervision or touching assist (CGA). [place] provide cues , steadying assist 3 The helper provides less than half the effort to complete the activity 2 The helper provides more than half the effort to complete the activity 1 Dependent. The helper does all the effort to complete an activity 7 Patient refused to complete or attempt activity 9 The patient did not perform the activity before the current illness or injury 88 Not attempted due to Medical conditions or safety concerns Transfers (B, C, W/C) (FIM): 6 all TRFs sup to sit and sit to stand SBA Gait Training Gait (FIM): 5 Distance (FIM): 3=150 ft (350') Gait Assistive Device: FWW pt. needs repeated instruction for moving FWW around objects and to slow gait, no LOB, good tolerance Treatments in chair after with coulter and alarm insitu as well as BP cuff, O2 sat mon and EKG reapplied Assessment Current Status: Good Progress PT [place] Goals Residential Goals PT Residential Goals Time Frame: Jun 09, 2017 Transfers (B,C,W/C) (FIM): 5 Gait (FIM): 5 Distance: 300' Gait Level of Assist: 5 Gait Assistive Device: FWW PT Plan Treatment/Plan Treatment Plan: Continue Plan of Care Treatment Plan: Bed Mobility, Education, Functional Activity Davis, Functional Strength, Gait, Safety, Therapeutic Exercise, Transfers Treatment Duration: Jun 09, 2017 Frequency: 6 times per week Estimated Hrs Per Day: .25 hour per day (15-30 min a day) Patient and/or Family Agrees t: Yes Safety Risks/Education Patient Education: Gait Training, Transfer Techniques Teaching Recipient: Patient Teaching Methods: Demonstration Response to Teaching: Reinforcement Needed Time/GCodes Time In: 1245 Time Out: 1255 Total Billed Treatment Time: 10 Total Billed Treatment 1,GT G Codes Necessary: No CASS FORTE IT COMPLIANCE ANALYST Jun 04, 2017 12:54
[2017-06-04] MEDS ORDERED: RIVAROXABAN 10 MG TABLET (XARELTO) PO SCH (17:00)
[2017-06-04] MEDS: LORazepam INJ 2 MG/ML (ATIVAN) VIAL IV PRN (18:55)
[2017-06-04] MEDS: traZODone 50 MG (DESYREL) TAB PO SCH (19:55)
[2017-06-04] MEDS: OXcarbazepine (TRILEPTAL) 300 MG TAB PO SCH (19:55)
[2017-06-04] MEDS ORDERED: MELATONIN 3 MG TABLET PO SCH (21:00)
[2017-06-04] MEDS ORDERED: MIRTAZAPINE 15 MG (REMERON) TAB PO SCH (21:00)
[2017-06-05] VITALS (9 sets, daily range): BP systolic 95–143; BP diastolic 49–95
[2017-06-05] MEDS: CATHETER FLUSH 10 ML SYR IV SCH ×2 (00:48→06:37)
[2017-06-05 04:07] LABS: BASOPHILS % (AUTO) 0 % (0-10); EOSINOPHILS # (AUTO) 0.2 10^3/uL (0.0-0.3); EOSINOPHILS % (AUTO) 2 % (0-10); LYMPHOCYTES # (AUTO) 1.2 X 10^3 (1.0-4.0); LYMPHOCYTES % (AUTO) 15 % (12-44); MEAN CORPUSCULAR HEMOGLOBIN 30 PG (25-34); MEAN CORPUSCULAR HGB CONC 35 G/DL (32-36); MEAN CORPUSCULAR VOLUME 85 FL (80-99); MEAN PLATELET VOLUME 9.8 FL (7.4-10.4); MONOCYTES # (AUTO) 0.7 X 10^3 (0.0-1.0); MONOCYTES % (AUTO) 8 % (0-12); NEUTROPHILS % (AUTO) 75 % (42-75); PLATELET COUNT 176 10^3/uL (130-400); RED BLOOD COUNT 4.33 10^6/uL (4.35-5.85); RED CELL DISTRIBUTION WIDTH 12.9 % (10.0-14.5)
[2017-06-05] MEDS: DILTIAZEM DRIP 100 MG/NS 100 ML IV SCH ×2 (04:15)
[2017-06-05 04:40] LABS: ANION GAP 15 MMOL/L (5-14); BLOOD UREA NITROGEN 22 MG/DL (7-18); BUN/CREATININE RATIO 25; CARBON DIOXIDE 17 MMOL/L (21-32); CHLORIDE 106 MMOL/L (98-107); CREATININE SERUM 0.88 MG/DL (0.60-1.30); GFR ESTIMATED > 60; GLUCOSE 120 MG/DL (70-105); MAGNESIUM 2.1 MG/DL (1.8-2.4); PHOSPHORUS 2.7 MG/DL (2.3-4.7); POTASSIUM 3.9 MMOL/L (3.6-5.0); SODIUM 138 MMOL/L (135-145)
[2017-06-05] MEDS: KCL 20 MEQ TAB (K-DUR) PO SCH (06:00)
[2017-06-05] MEDS: MAGNESIUM 1 GM/100 ML IVPB 100 ML IV SCH (06:00)
[2017-06-05] MEDS: POTASSIUM CL 10MEQ/50ML IVPB 50 ML IV SCH (06:00)
[2017-06-05] MEDS: inSUlin (REGULAR) HUMAN 1 UNIT/0.01 ML (CHARGE PER UNIT) SC SCH (06:00)
[2017-06-05] MEDS ORDERED: DILTIAZEM 240 MG (CARDIZEM CD) CAP PO SCH (09:00)
[2017-06-05] MEDS ORDERED: meTOproloL SUCCINATE 50 MG (TOPROL XL) TAB PO SCH (09:00)
[2017-06-05] MEDS: SINEMET 25/100 (CARBIDOPA/LEVODOPA) TAB PO SCH (09:43)
[2017-06-05] MEDS: RIVASTIGMINE 1.5 MG (EXELON) CAP PO SCH (09:44)
[2017-06-05] MEDS: SERTRALINE 100 MG (ZOLOFT) TAB PO SCH (09:46)
[2017-06-05] MEDS: rOPINIRole 1 MG (REQUIP) TABLET PO SCH (09:46)
[2017-06-05] MEDS: LOSARTAN 50 MG (COZAAR) TAB PO SCH (09:47)
[2017-06-05] MEDS: FUROSEMIDE 40 MG (LASIX) TAB PO SCH (09:48)
[2017-06-05] MEDS: LEVOTHYROXINE 125 MCG (LEVOTHROID) TABLET PO SCH (09:48)
[2017-06-05] MEDS: GABAPENTIN 100 MG (NEURONTIN) CAP PO SCH (09:48)
[2017-06-05] MEDS: amLODIPine 10 MG (NORVASC) TAB PO SCH (09:48)
[2017-06-05] MEDS: MAGNESIUM OXIDE (MAG-OX)400 MG TAB PO SCH ×2 (09:49→12:22)
[2017-06-05] MEDS: LORATADINE (CLARITIN) 10 MG TAB PO SCH (09:49)
[2017-06-05] MEDS: FAMOTIDINE 20 MG (PEPCID) TABLET PO SCH (09:49)
--- NOTE | 2017-06-05 10:05 | Diagnostic Imaging Report ---
INDICATION: Shortness breath. EXAM: Portable chest at 5:25 AM FINDINGS: Heart size and pulmonary vascularity are normal. The lungs are clear. There are no effusions or pneumothoraces. IMPRESSION: Negative chest. No change from previous day. Dictated by: Dictated on workstation # [id number]
--- NOTE | 2017-06-05 10:20 | Cardiology Progress Note ---
Cardiology SOAP Progress Note Subjective: No cardiac complaints Objective: I&O/Vital Signs Vital Sign - Last 12Hours 06/05/17 06/05/17 06/05/17 06/05/17 00:00 00:00 01:00 01:00 Temp 97.4 Pulse 65 71 71 Resp 12 13 B/P (MAP) 97/62 101/86 Pulse Ox 95 95 95 O2 Delivery Room Air Room Air Room Air 06/05/17 06/05/17 06/05/17 06/05/17 02:00 03:00 04:00 04:00 Temp 97.3 Pulse 56 51 52 Resp 11 12 12 B/P (MAP) 111/66 107/68 110/64 Pulse Ox 98 96 94 95 O2 Delivery Room Air Room Air Room Air Room Air 06/05/17 06/05/17 06/05/17 06/05/17 05:00 06:00 07:00 07:00 Pulse 52 54 109 109 Resp 12 12 15 B/P (MAP) 95/49 136/73 143/95 Pulse Ox 96 97 O2 Delivery Room Air Room Air Room Air 06/05/17 09:50 Temp 97.9 Intake and Output 06/05/17 00:00 Intake Total 865 ml Output Total 800 ml Balance 65 ml Weight (Pounds): 168 Weight (Ounces): 9.6 Weight (Calculated Kilograms): 76.489799 Constitutional: appears stated age, well-developed Respiratory: No accessory muscle use, No respiratory distress, No chest tender , No chest expansion is symmetric, No chest is bilaterally symmetric, No lungs clear to percussion, No lungs clear to auscultation, No crackles, No rhonchi, No rales, No stridor, No wheezing, No pleural rub, No other Cardiovascular: regular rate-rhythm, tachycardia, S1 and S2 Gastrointestional: No tender, No soft, No round, No distended, No pulsatile mass, No organomegaly, No guarding, No rebound, No tenderness, No hernia, No mass, No audible bowel sounds, No abnormal bowel sounds, No abdominal bruits, No spleenomegaly, No other Extremities: No normal range of motion, No non-tender, No normal inspection, No pedal edema, No calf tenderness, No normal capillary refill, No pelvis stable , No calf tenderness, No inflammation, No pedal edema, No slow capillary refill , No swelling, No other, No abrasion, No clubbing, No cyanosis, No ecchymosis, No laceration, No no lower extremity edema bilateral, No significant edema, No tenderness, No wound Neurologic/Psychiatric: disoriented x 3, grossly intact Skin: No normal color, No warm/dry, No cyanosis, No cool, No diaphoresis, No damp, No ecchymosis, No jaundice, No mottled, No pallor, No rash, No tattoos/ piercings, No ulcerations, No rash on exposed areas, No ulcerations on exposed areas, No other Results/Procedures: Labs Laboratory Tests 06/04/17 11:57: Glucometer 198H 06/04/17 17:31: Glucometer 152H 06/04/17 21:29: Glucometer 133H 06/05/17 03:18: White Blood Count 8.0, Red Blood Count 4.33L, Hemoglobin 12.8, Hematocrit 37, Mean Corpuscular Volume 85, Mean Corpuscular Hemoglobin 30, Mean Corpuscular Hemoglobin Concent 35, Red Cell Distribution Width 12.9, Platelet Count 176, Mean Platelet Volume 9.8, Neutrophils (%) (Auto) 75, Lymphocytes (%) (Auto) 15, Monocytes (%) (Auto) 8, Eosinophils (%) (Auto) 2, Basophils (%) (Auto) 0, Neutrophils # (Auto) 6.0, Lymphocytes # (Auto) 1.2, Monocytes # (Auto) 0.7, Eosinophils # (Auto) 0.2, Basophils # (Auto) 0.0, Sodium Level 138, Potassium Level 3.9, Chloride Level 106, Carbon Dioxide Level 17L, Anion Gap 15H, Blood Urea Nitrogen 22H, Creatinine 0.88, Estimat Glomerular Filtration Rate > 60, BUN /Creatinine Ratio 25, Glucose Level 120H, Calcium Level 9.0, Phosphorus Level 2.7, Magnesium Level 2.1 Microbiology 06/01/17 MRSA Screen - Final, Complete MRSA not isolated A/P: Assessment/Dx: alzheimers, atrial fibrillation, chest pain Plan: AF: Converted to sinus rhythm. Cardizem 240 mg a day. Toprol-XL 50 mg today. Xarelto. BNP 200 - mildly elevated. no CHF on exam. Echocardiogram showed normal LV function. Okay to transfer to floor Thank you for your consultation. Please call me if you have any questions. Hunter Triplett MD, FACP, FACC, FSCAI, FHRS, CCDS Interventional Cardiology Cardiac Electrophysiology Vascular Medicine and Endovascular Interventions Clinical Quality Measures AMI/AHF: ASA po Prior to arrival: Agus Davis MD Jun 05, 2017 10:20 am
--- NOTE | 2017-06-05 11:52 | Discharge Summary-Hospitalist ---
Diagnosis/Chief Complaint Date of Admission Jun 01, 2017 at 17:45 Date of Discharge Discharge Diagnosis Assessment: Chest pain without evidence of acute coronary syndrome Atrial fibrillation with rapid ventricular response very difficult to control now stable on PO meds and DC back to [place] Insomnia Diabetes mellitus PD Dementia Hypothyroidism Patient doing much better and up in chair and family at bedside Attempting to change Cardizem to oral form and wean off IV drip Heart rate is 116 currently Patient needs a sleeping aid Bowels are moving Denies any pain currently No fever, vital signs stable, pleasant, improved Irregular irregular with tachycardic rate Clear to auscultation bilaterally No edema Laboratory Tests 06/04/17 03:38 Assessment: Chest pain without evidence of acute coronary syndrome Atrial fibrillation with rapid ventricular response very difficult to control Insomnia Diabetes mellitus Plan: I appreciate cardiology expertise Monitor blood sugar Melatonin and Remeron tonight Reason Hospital Visit/Course Hospital course: Patient had a lengthy hospital course and all of it required ICU admission due to Cardizem drip infusion. Atrial fibrillation with rapid ventricular response required aggressive treatment by cardiology of which tolerated well but rapid ventricular response required multiple medications and at day of discharge she was feeling well was rate controlled and [facility] Discharge Summary Discharge Physical Examination Allergies: Coded Allergies: amitriptyline (Unverified Adverse Reaction, Mild, PSYCH-HYPERACTIVE, 08/27) diazepam (Verified Adverse Reaction, Unknown, 08/02/15) haloperidol (Verified Adverse Reaction, Unknown, 08/02/15) lorazepam (Verified Adverse Reaction, Unknown, 08/02/15) Vitals & I&Os Vital Signs Date Time Temp Pulse Resp B/P (MAP) Pulse Ox O2 Delivery O2 Flow Rate FiO2 06/05/17 09:50 97.9 06/05/17 07:00 109 06/05/17 07:00 15 143/95 Room Air 06/05/17 06:00 97 06/03/17 15:30 Hospital Course Labs (last 24 hrs) Laboratory Tests 06/04/17 17:31: Glucometer 152H 06/04/17 21:29: Glucometer 133H 06/05/17 03:18: White Blood Count 8.0, Red Blood Count 4.33L, Hemoglobin 12.8, Hematocrit 37, Mean Corpuscular Volume 85, Mean Corpuscular Hemoglobin 30, Mean Corpuscular Hemoglobin Concent 35, Red Cell Distribution Width 12.9, Platelet Count 176, Mean Platelet Volume 9.8, Neutrophils (%) (Auto) 75, Lymphocytes (%) (Auto) 15, Monocytes (%) (Auto) 8, Eosinophils (%) (Auto) 2, Basophils (%) (Auto) 0, Neutrophils # (Auto) 6.0, Lymphocytes # (Auto) 1.2, Monocytes # (Auto) 0.7, Eosinophils # (Auto) 0.2, Basophils # (Auto) 0.0, Sodium Level 138, Potassium Level 3.9, Chloride Level 106, Carbon Dioxide Level 17L, Anion Gap 15H, Blood Urea Nitrogen 22H, Creatinine 0.88, Estimat Glomerular Filtration Rate > 60, BUN /Creatinine Ratio 25, Glucose Level 120H, Calcium Level 9.0, Phosphorus Level 2.7, Magnesium Level 2.1 Microbiology 06/01/17 MRSA Screen - Final, Complete MRSA not isolated Discharge Home Medications: Active Scripts Active Xarelto (Rivaroxaban) 10 Mg Tablet 10 Mg PO HS 30 Days Metoprolol Succinate 50 Mg Tab.er.24h 50 Mg PO DAILY 30 Days Cardizem Cd (Diltiazem HCl) 240 Mg Cap.er.24h 240 Mg PO DAILY 30 Days Reported Melatonin 3 Mg Tablet 9 Mg PO HS TAKES 3 (3MG) TABLETS Acidophilus Lactobacillus (Lactobacillus Acidophilus) 1 Each Capsule 1 Cap PO DAILY Eye Vitamin-Minerals Tablet (Vit A/C/E AC/Znox/Cupric Oxide) 1 Each Tablet 1 Tab PO DAILY Magnesium Oxide 500 Mg Capsule 500 Mg PO 0800,1200,1700 Gabapentin 100 Mg Capsule 200 Mg PO HS TAKES 2 (100MG) CAPSULES Cough Relief (Dextromethorphan HBr) 15 Mg/5 Ml Liquid 10 Ml PO Q6H PRN Sertraline HCl 100 Mg Tablet 100 Mg PO DAILY Losartan Potassium 100 Mg Tablet 100 Mg PO DAILY Levothyroxine Sodium 125 Mcg Tablet 125 Mcg PO DAILY Tylenol (Acetaminophen) 325 Mg Tablet 650 Mg PO Q4H PRN TAKES 2 (325MG) TABLETS Loperamide (Loperamide HCl) 2 Mg Tablet 2 Mg PO UD PRN Klor-Con M20 (Potassium Chloride) 20 Meq Tab.er.prt 20 Meq PO TID Ropinirole HCl 1 Mg Tablet 1 Mg PO BID Pepcid (Famotidine) 20 Mg Tablet 20 Mg PO BID Rivastigmine (Rivastigmine Tartrate) 6 Mg Capsule 6 Mg PO BID Carbidopa-Levodopa 25-100 Tab (Carbidopa/Levodopa) 1 Each Tablet 1 Tab PO BID Zyrtec (Cetirizine HCl) 10 Mg Tablet 10 Mg PO DAILY Oxcarbazepine 300 Mg Tablet 300 Mg PO HS Trazodone HCl 50 Mg Tablet 50 Mg PO HS Senna (Sennosides) 8.6 Mg Tablet 8.6 Mg PO DAILY PRN Clopidogrel (Clopidogrel Bisulfate) 75 Mg Tablet 75 Mg PO DAILY Furosemide 40 Mg Tablet 40 Mg PO DAILY Gabapentin 100 Mg Capsule 100 Mg PO DAILY Amlodipine Besylate 10 Mg Tablet 10 Mg PO DAILY Instructions to patient/family Please see electonic discharge instructions given to patient. Clinical Quality Measures AMI/AHF: ASA po Prior to arrival: No DVT/VTE Risk/Contraindication: Risk Factor Score Per Nursin RFS Level Per Nursing on Admit: 2=Moderate TYE NIELSEN DO Jun 05, 2017 11:52
[2017-06-05] MEDS ORDERED: DILT240C86 PO (12:28)
[2017-06-05] MEDS ORDERED: RIVA10TA PO (12:28)
[2017-06-05] MEDS ORDERED: METO-370 PO (12:28)
[2017-06-06] MEDS ORDERED: FAMOTIDINE 20 MG (PEPCID) TABLET PO SCH (09:00)
--- OUTSIDE RECORDS SUMMARY | 2017-06-09 00:28 | XMS REPORT | Continuity of Care Document ---
Author Author [facility] of [facility] of [facility] Address Unknown Phone Unavailable Allergies Active Description Code Type Severity Reaction Onset Reported/Identified Relationship to Patient Clinical Status Yes amitriptyline [id number] Drug Allergy Mild PSYCH-HYPERACTI 08/27/2009 Yes Ativan Drug Allergy N/A N/A 04/04/2014 Yes Haldol Drug Allergy N/A N/A 04/04/2014 Yes Valium Drug Allergy N/A N/A 04/04/2014 Yes diazepam [id number] Drug Allergy Unknown N/A 08/02/2015 Yes haloperidol [id number] Drug Allergy Unknown N/A 08/02/2015 Yes lorazepam [id number] Drug Allergy Unknown N/A 08/02/2015 Medications Problems Date Dx Coded Attending Type Code Diagnosis Diagnosed By 03/16/2010 Ot 244.9 03/16/2010 Ot 250.00 03/16/2010 Ot 311 03/16/2010 Ot 333.94 03/16/2010 Ot 401.9 03/16/2010 Ot 486 03/16/2010 Ot 511.9 03/16/2010 Ot 530.81 03/16/2010 Ot 564.1 03/16/2010 Ot 715.90 03/16/2010 Ot 787.20 08/24/2010 Ot 211.3 08/24/2010 Ot 562.10 08/24/2010 Ot V12.72 03/03/2011 Ot 244.9 03/03/2011 Ot 250.00 03/03/2011 Ot 401.9 03/03/2011 Ot 530.81 03/03/2011 Ot 562.10 03/03/2011 Ot 599.0 03/03/2011 Ot 786.59 03/03/2011 Ot V58.69 07/29/2013 MCKINLEY HYDE DO Ot 275.41 07/29/2013 MCKINLEY HYDE DO Ot 276.8 07/29/2013 MCKINLEY HYDE DO Ot 294.10 07/29/2013 FAUSTO HYDE DOA K Ot 300.00 07/29/2013 BARRETT MCKINLEY CRUZ K Ot 331.0 07/29/2013 BARRETT FAUSTO CRUZA K Ot 333.94 07/29/2013 BARRETT CRUZ, MCKINLEY K Ot 401.9 04/10/2014 VERONICA SPRINGER MD 250.00 DIABETES MELLITUS WITHOUT MENTION OF COMPLICATION TYPE II OR UNSPECIFIED TYPE NOT STATED UNCONTROLLED 04/10/2014 VERONICA SPRINGER MD 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 04/10/2014 VERONICA SPRINGER MD 311 DEPRESSIVE DISORDER NOT ELSEWHERE CLASSIFIED 04/10/2014 VERONICA SPRNIGER MD 401.1 BENIGN ESSENTIAL HYPERTENSION 04/10/2014 VERONICA SPRINGER MD 427.31 ATRIAL FIBRILLATION 04/10/2014 FAVIAN CAR INSPECTOR, BEVERLY S 250.00 DIABETES MELLITUS WITHOUT MENTION OF COMPLICATION TYPE II OR UNSPECIFIED TYPE NOT STATED UNCONTROLLED 04/10/2014 FAVIAN WILKINSON BEVERLY S 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 04/10/2014 FAVIAN WILKINSON BEVERLY S 311 DEPRESSIVE DISORDER NOT ELSEWHERE CLASSIFIED 04/10/2014 FAVIAN CAR INSPECTOR, BEVERLY S 401.1 BENIGN ESSENTIAL HYPERTENSION 04/10/2014 FAVIAN CAR INSPECTOR, BEVERLY S 427.31 ATRIAL FIBRILLATION 04/10/2014 FAVIAN CAR INSPECTOR, BEVERLY S 250.00 DIABETES MELLITUS WITHOUT MENTION OF COMPLICATION TYPE II OR UNSPECIFIED TYPE NOT STATED UNCONTROLLED 04/10/2014 FAVIAN CAR INSPECTOR, BEVERLY S 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 04/10/2014 FAVIAN WILKINSON BEVERLY S 311 DEPRESSIVE DISORDER NOT ELSEWHERE CLASSIFIED 04/10/2014 FAVIAN CAR INSPECTOR, BEVERLY S 401.1 BENIGN ESSENTIAL HYPERTENSION 04/10/2014 FAVIAN CAR INSPECTOR, BEVERLY S 427.31 ATRIAL FIBRILLATION 04/10/2014 FAVIAN CAR INSPECTOR, BEVERLY S 250.00 DIABETES MELLITUS WITHOUT MENTION OF COMPLICATION TYPE II OR UNSPECIFIED TYPE NOT STATED UNCONTROLLED 04/10/2014 FAVIAN CAR INSPECTOR, BEVERLY S 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 04/10/2014 FAVIAN CAR INSPECTOR, BEVERLY S 311 DEPRESSIVE DISORDER NOT ELSEWHERE CLASSIFIED 04/10/2014 FAVIAN WILKINSON BEVERLY S 401.1 BENIGN ESSENTIAL HYPERTENSION 04/10/2014 FAVIAN WILKINSON, BEVERLY S 427.31 ATRIAL FIBRILLATION 04/10/2014 VERONICA SPRINGER MD 250.00 DIABETES MELLITUS WITHOUT MENTION OF COMPLICATION TYPE II OR UNSPECIFIED TYPE NOT STATED UNCONTROLLED 04/10/2014 VERONICA SPRINGER MD 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 04/10/2014 VERONICA SPRINGER MD 311 DEPRESSIVE DISORDER NOT ELSEWHERE CLASSIFIED 04/10/2014 VERONICA SPRINGER MD 401.1 BENIGN ESSENTIAL HYPERTENSION 04/10/2014 VERONICA SPRINGER MD 427.31 ATRIAL FIBRILLATION 04/10/2014 FAVIAN CAR INSPECTOR, BEVERLY S 250.00 DIABETES MELLITUS WITHOUT MENTION OF COMPLICATION TYPE II OR UNSPECIFIED TYPE NOT STATED UNCONTROLLED 04/10/2014 FAVIAN WILKINSON, BEVERLY S 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 04/10/2014 FAVIAN WILKINSON BEVERLY S 311 DEPRESSIVE DISORDER NOT ELSEWHERE CLASSIFIED 04/10/2014 FAVIAN WILKINSON, BEVERLY S 401.1 BENIGN ESSENTIAL HYPERTENSION 04/10/2014 FAVIAN WILKINSON, BEVERLY S 427.31 ATRIAL FIBRILLATION 04/10/2014 FAVIAN CAR INSPECTOR, BEVERLY S 250.00 DIABETES MELLITUS WITHOUT MENTION OF COMPLICATION TYPE II OR UNSPECIFIED TYPE NOT STATED UNCONTROLLED 04/10/2014 FAVIAN CAR INSPECTOR, BEVERLY S 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1 BENIGN ESSENTIAL HYPERTENSION 04/10/2014 FAVIAN CAR INSPECTOR, BEVERLY S 427.31 ATRIAL FIBRILLATION 05/15/2014 FAVIAN WILKINSON, BEVERLY S 296.80 BIPOLAR DISORDER UNSPECIFIED 05/15/2014 FAVIAN CAR INSPECTOR, BEVERLY S 296.80 BIPOLAR DISORDER UNSPECIFIED 05/15/2014 VERONICA SPRINGER MD 296.80 BIPOLAR DISORDER UNSPECIFIED 05/15/2014 FAVIAN CAR INSPECTOR, BEVERLY S 296.80 BIPOLAR DISORDER UNSPECIFIED 05/15/2014 FAVIAN CAR INSPECTOR, BEVERLY S 296.80 BIPOLAR DISORDER UNSPECIFIED 05/15/2014 FAVIAN CAR INSPECTOR, BEVERLY S 296.80 BIPOLAR DISORDER UNSPECIFIED 06/19/2014 FAVIAN CAR INSPECTOR, BEVERLY S 786.2 COUGH 06/19/2014 VERONICA SPRINGER MD 786.2 COUGH 06/19/2014 FAVIAN CAR INSPECTOR, BEVERLY S 786.2 COUGH 06/19/2014 FAVIAN CAR INSPECTOR, BEVERLY S 786.2 COUGH 06/19/2014 FAVIAN CAR INSPECTOR, BEVERLY S 786.2 COUGH 06/24/2014 VERONICA SPRINGER MD 477.9 ALLERGIC RHINITIS CAUSE UNSPECIFIED 06/24/2014 FAVIAN CAR INSPECTOR, BEVERLY S 477.9 ALLERGIC RHINITIS CAUSE UNSPECIFIED 06/24/2014 FAVIAN CAR INSPECTOR, BEVERLY S 477.9 ALLERGIC RHINITIS CAUSE UNSPECIFIED 06/24/2014 FAVIAN CAR INSPECTOR, BEVERLY S 477.9 ALLERGIC RHINITIS CAUSE UNSPECIFIED 07/03/2014 FAVIAN CAR INSPECTOR, BEVERLY S 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 07/03/2014 FAVIAN CAR INSPECTOR, BEVERLY S 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 07/03/2014 FAVIAN CAR INSPECTOR, BEVERLY S 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 01/15/2015 FAVIAN CAR INSPECTOR, BEVERLY S 562.11 DIVERTICULITIS OF COLON (WITHOUT HEMORRHAGE) 08/02/2015 BARRETT DO, MCKINLEY K Ot 244.9 08/02/2015 BARRETT DO, MCKINLEY K Ot 250.00 08/02/2015 BARRETT DO, MCKINLEY K Ot 294.20 08/02/2015 BARRETT DO, MCKINLEY K Ot 401.9 08/02/2015 BARRETT DO, MCKINLEY K Ot 427.31 08/02/2015 BARRETT DO, MCKINLEY K Ot 427.89 08/02/2015 BARRETT DO, MCKINLEY K Ot 530.81 08/02/2015 BARRETT DO, MCKINLEY K Ot 780.4 08/04/2015 RACHEAL GONSALEZ, VERONICA F Ot 244.9 08/04/2015 RACHEAL GONSALEZ, VERONICA F Ot 294.10 08/04/2015 RACHEAL GONSALEZ, VERONICA F Ot 296.80 08/04/2015 RACHEAL GONSALEZ, VERONICA F Ot 300.00 08/04/2015 RACHEAL GONSALEZ, VERONICA F Ot 311 08/04/2015 RACHEAL GONSALEZ, VERONICA F Ot 331.0 08/04/2015 RACHEAL GONSALEZ, VERONICA F Ot 332.0 08/04/2015 RACHEAL GONSALEZ, VERONICA F Ot 333.94 08/04/2015 RACHEAL GONSALEZ, VERONICA F Ot 401.9 08/04/2015 RACHEAL GONSALEZ, VERONICA F Ot 427.81 08/04/2015 RACHEAL GONSALEZ, VERONICA F Ot 427.89 08/04/2015 RACHEAL GONSALEZ, VERONICA F Ot 530.81 08/04/2015 RACHEAL GONSALEZ, VERONICA F Ot 593.9 08/04/2015 RACHEAL GONSALEZ, VERONICA F Ot 780.52 08/04/2015 RACHEAL GONSALEZ, VERONICA F Ot 782.3 08/04/2015 RACHEAL GONSALEZ, VERONICA F Ot 785.9 08/04/2015 RACHEAL GONSALEZ, VERONICA F Ot E942.9 08/04/2015 RACHEAL GONSALEZ, VERONICA F Ot V15.82 08/04/2015 RACHEAL GONSALEZ, VERONICA F Ot V15.88 08/04/2015 RACHEAL GONSALEZ, VERONICA F Ot 244.9 08/04/2015 RACHEAL GONSALEZ, VERONICA F Ot 294.10 08/04/2015 RACHEAL GONSALEZ, VERONICA F Ot 296.80 08/04/2015 RACHEAL GONSALEZ, VERONICA F Ot 300.00 08/04/2015 RACHEAL GONSALEZ, VERONICA F Ot 311 08/04/2015 RACHEAL GONSALEZ, VERONICA F Ot 331.0 08/04/2015 RACHEAL GONSALEZ, VERONICA F Ot 332.0 08/04/2015 RACHEAL GONSALEZ, VERONICA F Ot 333.94 08/04/2015 RACHEAL GONSALEZ, VERONICA F Ot 401.9 08/04/2015 RACHEAL GONSALEZ, VERONICA F Ot 427.81 08/04/2015 RACHEAL GONSALEZ, VERONICA F Ot 427.89 08/04/2015 RACHEAL GONSALEZ, VERONICA F Ot 530.81 08/04/2015 RACHEAL GONSALEZ, VERONICA F Ot 593.9 08/04/2015 RACHEAL GONSALZE, VERONICA F Ot 780.52 08/04/2015 RACHEAL GONSALEZ, VERONICA F Ot 782.3 08/04/2015 RACHEAL GONSALEZ, VERONICA F Ot 785.9 08/04/2015 RACHEAL GONSALEZ, VERONICA F Ot E942.9 08/04/2015 RACHEAL GONSALEZ, VERONICA F Ot V15.82 08/04/2015 RACHEAL GONSALEZ, VERONICA F Ot V15.88 08/04/2015 RACHEAL GONSALEZ, VERONICA F Ot 244.9 08/04/2015 RACHEAL GONSALEZ, VERONICA F Ot 294.10 08/04/2015 RACHEAL GONSALEZ, VERONICA F Ot 296.80 08/04/2015 RACHEAL GONSALEZ, VERONICA F Ot 300.00 08/04/2015 RACHEAL GONSALEZ, VERONICA F Ot 311 08/04/2015 RACHEAL GONSALEZ, VERONICA F Ot 331.0 08/04/2015 RACHEAL GONSALEZ, VERONICA F Ot 332.0 08/04/2015 RACHEAL GONSALEZ, VERONICA F Ot 333.94 08/04/2015 RACHEAL GONSALEZ, VERONICA F Ot 401.9 08/04/2015 RACHEAL GONSALEZ, VERONICA F Ot 427.81 08/04/2015 RACHEAL GONSALEZ, VERONICA F Ot 427.89 08/04/2015 RACHEAL GONSALEZ, VERONICA F Ot 530.81 08/04/2015 RACHEAL GONSALEZ, VERONICA F Ot 593.9 08/04/2015 RACHEAL GONSALEZ, VERONICA F Ot 780.52 08/04/2015 RACHEAL GONSALEZ, VERONICA F Ot 782.3 08/04/2015 RACHEAL GONSALEZ, VERONICA F Ot 785.9 08/04/2015 RACHEAL GONSALEZ, VERONICA F Ot E942.9 08/04/2015 RACHEAL GONSALEZ, VERONICA F Ot V15.82 08/04/2015 RACHEAL GONSALEZ, VERONICA F Ot V15.88 08/08/2015 Ot 511.9 08/08/2015 Ot 789.06 08/08/2015 Ot V81.5 08/08/2015 Ot 511.9 08/08/2015 Ot 496 08/08/2015 CHANDLER GONSALEZ, CAMDEN Goldsmith Ot V72.84 08/08/2015 NINA GONSALEZ, WALTER D Ot 244.9 08/08/2015 NINA GONSALEZ, WALTER D Ot 250.00 08/08/2015 NINA GONSALEZ, WALTER D Ot 276.50 08/08/2015 NINA GONSALEZ, WALTER D Ot 294.20 08/08/2015 NINA GONSALEZ, WALTER D Ot 401.9 08/08/2015 NINA GONSALEZ, WALTER D Ot 427.31 08/08/2015 NINA GONSALEZ, WALTER D Ot 780.4 08/08/2015 NINA GONSALEZ, WALTER D Ot V58.69 11/18/2015 BARRETT DO, MCKINLEY K Ot F03.90 11/18/2015 BARRETT DO, MCKINLEY K Ot N39.0 11/18/2015 BARRETT DO, MCKINLEY K Ot R11.2 11/18/2015 BARRETT DO, MCKINLEY K Ot R42 11/20/2015 RIGOBERTO GONSALEZ, SHON Zamora Ot F03.90 11/20/2015 RIGOBERTO GONASLEZ, SHON Zamora Ot Z59.3 11/20/2015 RIGOBERTO GONSALEZ, SHON Zamora Ot Z79.02 04/14/2016 BARRETT DO, MCKINLEY K Ot 244.9 HYPOTHYROIDISM NOS 04/14/2016 BARRETT DO, MCKINLEY K Ot 250.00 DIAB THOMAS WO COMPL, TYPE II OR UNSPEC TY 04/14/2016 BARRETT DO, MCKINLEY K Ot 294.20 DEMENTIA, UNSPECIFIED, WITHOUT BEHAVIORA 04/14/2016 BARRETT DO, MCKINLEY K Ot 401.9 HYPERTENSION NOS 04/14/2016 BARRETT DO, MCKINLEY K Ot 427.31 ATRIAL FIBRILLATION 04/14/2016 BARRETT DO, MCKINLEY K Ot 427.89 CARDIAC DYSRHYTHMIAS NEC 04/14/2016 BARRETT DO, MCKINLEY K Ot 530.81 ESOPHAGEAL REFLUX 04/14/2016 BARRETT DO, MCKINLEY K Ot 780.4 DIZZINESS AND GIDDINESS 04/21/2016 RICHARD GONSALEZ, MELCHOR Hopkins Ot M54.9 DORSALGIA, UNSPECIFIED 04/21/2016 RICHARD GONSALEZ, MELCHOR Hopkins Ot R10.84 GENERALIZED ABDOMINAL PAIN 05/04/2016 RICHARD GONSALEZ, MELCHOR Hopkins Ot N28.1 CYST OF KIDNEY, ACQUIRED 05/11/2016 RICHARD GONSALEZ, MELCHOR Hopkins Ot M54.9 DORSALGIA, UNSPECIFIED 05/11/2016 RICHARD GONSALEZ, MELCHOR Hopkins Ot R10.84 GENERALIZED ABDOMINAL PAIN 06/01/2016 RICHARD GONSALEZ, MELCHOR Hopkins Ot N28.1 CYST OF KIDNEY, ACQUIRED 12/20/2016 RACHEAL GONSALEZ, VERONICA Styles Ot J09.X9 FLU DUE TO IDENT NOVEL INFLUENZA A VIRUS 01/10/2017 RACHEAL GONSALEZ, VERONICA Styles Ot J09.X9 FLU DUE TO IDENT NOVEL INFLUENZA A VIRUS 01/12/2017 BARRETT DO, MCKINLEY K Ot 244.9 HYPOTHYROIDISM NOS 01/12/2017 BARRETT DO, MCKINLEY K Ot 250.00 DIAB THOMAS WO COMPL, TYPE II OR UNSPEC TY 01/12/2017 BARRETT DO, MCKINLEY K Ot 294.20 DEMENTIA, UNSPECIFIED, WITHOUT BEHAVIORA 01/12/2017 BARRETT DO, MCKINLEY K Ot 401.9 HYPERTENSION NOS 01/12/2017 BARRETT DO, MCKINLEY K Ot 427.31 ATRIAL FIBRILLATION 01/12/2017 BARRETT DO, MCKINLEY K Ot 427.89 CARDIAC DYSRHYTHMIAS NEC 01/12/2017 BARRETT DO, MCKINLEY K Ot 530.81 ESOPHAGEAL REFLUX 01/12/2017 BARRETT DO, MCKINLEY K Ot 780.4 DIZZINESS AND GIDDINESS 02/22/2017 JESSICA PAINTING APRN Ot E11.9 TYPE 2 DIABETES MELLITUS WITHOUT COMPLIC 02/22/2017 JESSICA PAINTING APRN Ot F41.9 ANXIETY DISORDER, UNSPECIFIED 02/22/2017 JESSICA PAINTING APRN Ot I10 ESSENTIAL (PRIMARY) HYPERTENSION 02/22/2017 JESSICA PAINTING APRN Ot I48.2 CHRONIC ATRIAL FIBRILLATION 02/22/2017 JESSICA PAINTING APRN Ot R07.89 OTHER CHEST PAIN 02/22/2017 JESSICA PAINTING APRN Ot R07.9 CHEST PAIN, UNSPECIFIED 02/22/2017 JESSICA PAINTING APRN Ot 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 02/22/2017 JESSICA PAINTING APRN Ot 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 02/22/2017 JESSICA PAINTING APRN Ot Z79.899 OTHER DITTO MACHINE OPERATOR (CURRENT) DRUG THERAPY 02/23/2017 JESSICA PAINTING APRN Ot E11.9 TYPE 2 DIABETES MELLITUS WITHOUT COMPLIC 02/23/2017 JESSICA PAINTING CAR INSPECTOR Ot F41.9 ANXIETY DISORDER, UNSPECIFIED 02/23/2017 JESSICA PAINTING CAR INSPECTOR Ot I10 ESSENTIAL (PRIMARY) HYPERTENSION 02/23/2017 JESSICA PAINTING CAR INSPECTOR Ot I48.2 CHRONIC ATRIAL FIBRILLATION 02/23/2017 JESSICA PAINTING CAR INSPECTOR Ot R07.89 OTHER CHEST PAIN 02/23/2017 JESSICA PAINTING CAR INSPECTOR Ot R07.9 CHEST PAIN, UNSPECIFIED 02/23/2017 JESSICA PAINTING CAR INSPECTOR Ot Z79.82 SENIOR LIVING (CURRENT) USE OF ASPIRIN 02/23/2017 JESSICA PAINTING CAR INSPECTOR Ot Z79.84 SENIOR LIVING (CURRENT) USE OF ORAL HYPOGLYC 02/23/2017 JESSICA PAINTING CAR INSPECTOR Ot Z79.899 OTHER DITTO MACHINE OPERATOR (CURRENT) DRUG THERAPY 02/28/2017 JESSICA PAINTING CAR INSPECTOR Ot E11.9 TYPE 2 DIABETES MELLITUS WITHOUT COMPLIC 02/28/2017 JESSICA PAINTING CAR INSPECTOR Ot F41.9 ANXIETY DISORDER, UNSPECIFIED 02/28/2017 JESSICA PAINTING CAR INSPECTOR Ot I10 ESSENTIAL (PRIMARY) HYPERTENSION 02/28/2017 JESSICA PAINTING CAR INSPECTOR Ot I48.2 CHRONIC ATRIAL FIBRILLATION 02/28/2017 JESSICA PAINTING CAR INSPECTOR Ot R07.89 OTHER CHEST PAIN 02/28/2017 JESSICA PAINTING CAR INSPECTOR Ot R07.9 CHEST PAIN, UNSPECIFIED 02/28/2017 JESSICA PAINTING CAR INSPECTOR Ot Z79.82 SENIOR LIVING (CURRENT) USE OF ASPIRIN 02/28/2017 JESSICA PAINTING CAR INSPECTOR Ot Z79.84 SENIOR LIVING (CURRENT) USE OF ORAL HYPOGLYC 02/28/2017 JESSICA PAINTING CAR INSPECTOR Ot Z79.899 OTHER DITTO MACHINE OPERATOR (CURRENT) DRUG THERAPY 06/02/2017 DONOVAN GONSALEZ, YELENA Oviedo Ot E03.9 HYPOTHYROIDISM, UNSPECIFIED 06/02/2017 YELENA MAN MD Ot E11.9 TYPE 2 DIABETES MELLITUS WITHOUT COMPLIC 06/02/2017 DONOVAN GONSALEZ, YELENA Oviedo Ot F02.81 DEMENTIA IN OTH DISEASES CLASSD ELSWHR W 06/02/2017 YELENA MAN MD Ot F31.9 BIPOLAR DISORDER, UNSPECIFIED 06/02/2017 YELENA MAN MD Ot F41.9 ANXIETY DISORDER, UNSPECIFIED 06/02/2017 YELENA MAN MD Ot 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 06/02/2017 YELENA MAN MD Ot G25.81 RESTLESS LEGS SYNDROME 06/02/2017 YELENA MAN MD Ot G30.9 ALZHEIMER'S DISEASE, UNSPECIFIED 06/02/2017 YELENA MAN MD Ot G47.00 INSOMNIA, UNSPECIFIED 06/02/2017 YELENA MAN MD Ot I10 ESSENTIAL (PRIMARY) HYPERTENSION 06/02/2017 DONOVAN GONSALEZ, YELENA Oviedo Ot I48.91 UNSPECIFIED ATRIAL FIBRILLATION 06/02/2017 YELENA MAN MD Ot K21.9 GASTRO-ESOPHAGEAL REFLUX DISEASE WITHOUT 06/02/2017 YELENA MAN MD Ot R07.9 CHEST PAIN, UNSPECIFIED 06/02/2017 YELENA MAN MD Ot R42 DIZZINESS AND GIDDINESS 06/02/2017 YELENA MAN MD Ot R45.1 RESTLESSNESS AND AGITATION 06/02/2017 YELENA MAN MD Ot Z66 DO NOT RESUSCITATE 06/02/2017 YELENA MAN MD Ot Z79.02 DITTO MACHINE OPERATOR (CURRENT) USE OF ANTITHROMBOTI 06/02/2017 YELENA MAN MD Ot Z79.82 SENIOR LIVING (CURRENT) USE OF ASPIRIN 06/02/2017 YELENA MAN MD Ot 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 06/02/2017 YELENA MAN MD Ot Z87.891 PERSONAL HISTORY OF NICOTINE DEPENDENCE 06/03/2017 YELENA MAN MD Ot E03.9 HYPOTHYROIDISM, UNSPECIFIED 06/03/2017 YELENA MAN MD Ot E11.9 TYPE 2 DIABETES MELLITUS WITHOUT COMPLIC 06/03/2017 YELENA MAN MD Ot F02.81 DEMENTIA IN OTH DISEASES CLASSD ELSWHR W 06/03/2017 YELENA MAN MD Ot F31.9 BIPOLAR DISORDER, UNSPECIFIED 06/03/2017 YELENA MAN MD Ot F41.9 ANXIETY DISORDER, UNSPECIFIED 06/03/2017 YELENA MAN MD Ot 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 06/03/2017 YELENA MAN MD Ot G25.81 RESTLESS LEGS SYNDROME 06/03/2017 YELENA MAN MD Ot G30.9 ALZHEIMER'S DISEASE, UNSPECIFIED 06/03/2017 YELENA MAN MD Ot G47.00 INSOMNIA, UNSPECIFIED 06/03/2017 YELENA MAN MD Ot I10 ESSENTIAL (PRIMARY) HYPERTENSION 06/03/2017 DONOVAN GONSALEZ, YELENA Oviedo Ot I48.91 UNSPECIFIED ATRIAL FIBRILLATION 06/03/2017 YELENA MAN MD Ot K21.9 GASTRO-ESOPHAGEAL REFLUX DISEASE WITHOUT 06/03/2017 DONOVAN GONSALEZ, YELENA Oviedo Ot R07.9 CHEST PAIN, UNSPECIFIED 06/03/2017 DONOVAN GONSALEZ, YELENA Oviedo Ot R42 DIZZINESS AND GIDDINESS 06/03/2017 DONOVAN GONSALEZ, YELENA Oviedo Ot R45.1 RESTLESSNESS AND AGITATION 06/03/2017 DONOVAN GONSALEZ, YELENA Oviedo Ot Z66 DO NOT RESUSCITATE 06/03/2017 DONOVAN GONSALEZ, YELENA Oviedo Ot Z79.02 DITTO MACHINE OPERATOR (CURRENT) USE OF ANTITHROMBOTI 06/03/2017 YELENA MAN MD Ot Z79.82 SENIOR LIVING (CURRENT) USE OF ASPIRIN 06/03/2017 YELENA MAN MD Ot 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 06/03/2017 DONOVAN GONSALEZ, YELENA Oviedo Ot Z87.891 PERSONAL HISTORY OF NICOTINE DEPENDENCE 06/03/2017 DONOVNA GONSALEZ, YELENA Oviedo Ot E03.9 HYPOTHYROIDISM, UNSPECIFIED 06/03/2017 DONOVAN GONSALEZ, YELENA Oviedo Ot E11.9 TYPE 2 DIABETES MELLITUS WITHOUT COMPLIC 06/03/2017 DONOVAN GONSALEZ, YELENA Oviedo Ot F02.81 DEMENTIA IN OTH DISEASES CLASSD ELSWHR W 06/03/2017 DONOVAN GONSALEZ, YELENA Oviedo Ot F31.9 BIPOLAR DISORDER, UNSPECIFIED 06/03/2017 DONOVAN GONSALEZ, YELENA Oviedo Ot F41.9 ANXIETY DISORDER, UNSPECIFIED 06/03/2017 YELENA MAN MD Ot 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 06/03/2017 YELENA MAN MD Ot G25.81 RESTLESS LEGS SYNDROME 06/03/2017 YELENA MAN MD Ot G30.9 ALZHEIMER'S DISEASE, UNSPECIFIED 06/03/2017 YELENA MAN MD Ot G47.00 INSOMNIA, UNSPECIFIED 06/03/2017 YELENA MAN MD Ot I10 ESSENTIAL (PRIMARY) HYPERTENSION 06/03/2017 YELENA MAN MD Ot I48.91 UNSPECIFIED ATRIAL FIBRILLATION 06/03/2017 YELENA MAN MD Ot K21.9 GASTRO-ESOPHAGEAL REFLUX DISEASE WITHOUT 06/03/2017 YELENA MAN MD Ot R07.9 CHEST PAIN, UNSPECIFIED 06/03/2017 YELENA MAN MD Ot R42 DIZZINESS AND GIDDINESS 06/03/2017 YELENA MAN MD Ot R45.1 RESTLESSNESS AND AGITATION 06/03/2017 YELENA MAN MD Ot Z66 DO NOT RESUSCITATE 06/03/2017 YELENA MAN MD Ot Z79.02 DITTO MACHINE OPERATOR (CURRENT) USE OF ANTITHROMBOTI 06/03/2017 YELENA MAN MD Ot 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 06/03/2017 YELENA MAN MD Ot 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 06/03/2017 YELENA MAN MD Ot Z87.891 PERSONAL HISTORY OF NICOTINE DEPENDENCE 06/04/2017 YELENA MAN MD Ot E03.9 HYPOTHYROIDISM, UNSPECIFIED 06/04/2017 YELENA MAN MD Ot E11.9 TYPE 2 DIABETES MELLITUS WITHOUT COMPLIC 06/04/2017 YELENA MAN MD Ot F02.81 DEMENTIA IN OT DISEASES CLASSD ELSWHR W 06/04/2017 YELENA MAN MD Ot F31.9 BIPOLAR DISORDER, UNSPECIFIED 06/04/2017 YELENA MAN MD Ot F41.9 ANXIETY DISORDER, UNSPECIFIED 06/04/2017 YELENA MAN MD Ot 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 06/04/2017 YELENA MAN MD Ot G25.81 RESTLESS LEGS SYNDROME 06/04/2017 YELENA MAN MD Ot G30.9 ALZHEIMER'S DISEASE, UNSPECIFIED 06/04/2017 YELENA MAN MD Ot G47.00 INSOMNIA, UNSPECIFIED 06/04/2017 YELENA MAN MD Ot I10 ESSENTIAL (PRIMARY) HYPERTENSION 06/04/2017 YELENA MAN MD Ot I48.91 UNSPECIFIED ATRIAL FIBRILLATION 06/04/2017 YELENA MAN MD Ot K21.9 GASTRO-ESOPHAGEAL REFLUX DISEASE WITHOUT 06/04/2017 YELENA MAN MD Ot R07.9 CHEST PAIN, UNSPECIFIED 06/04/2017 YELENA MAN MD Ot R42 DIZZINESS AND GIDDINESS 06/04/2017 YELENA MAN MD Ot R45.1 RESTLESSNESS AND AGITATION 06/04/2017 YELENA MAN MD Ot Z66 DO NOT RESUSCITATE 06/04/2017 YELENA MAN MD Ot Z79.02 SENIOR LIVING (CURRENT) USE OF ANTITHROMBOTI 06/04/2017 YELENA MAN MD Ot Z79.82 SENIOR LIVING (CURRENT) USE OF ASPIRIN 06/04/2017 YELENA MAN MD Ot Z79.84 SENIOR LIVING (CURRENT) USE OF ORAL HYPOGLYC 06/04/2017 YELENA MAN MD Ot Z87.891 PERSONAL HISTORY OF NICOTINE DEPENDENCE 06/05/2017 YELENA MAN MD Ot E03.9 HYPOTHYROIDISM, UNSPECIFIED 06/05/2017 YELENA MAN MD Ot E11.9 TYPE 2 DIABETES MELLITUS WITHOUT COMPLIC 06/05/2017 YELENA MAN MD Ot F02.81 DEMENTIA IN OT DISEASES CLASSD ELSWHR W 06/05/2017 YELENA MAN MD Ot F31.9 BIPOLAR DISORDER, UNSPECIFIED 06/05/2017 YELENA MAN MD Ot F41.9 ANXIETY DISORDER, UNSPECIFIED 06/05/2017 YELENA MAN MD Ot 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 06/05/2017 YELENA MAN MD Ot G25.81 RESTLESS LEGS SYNDROME 06/05/2017 YELENA MAN MD Ot G30.9 ALZHEIMER'S DISEASE, UNSPECIFIED 06/05/2017 YELENA MAN MD Ot G47.00 INSOMNIA, UNSPECIFIED 06/05/2017 YELENA MAN MD Ot I10 ESSENTIAL (PRIMARY) HYPERTENSION 06/05/2017 YELENA MAN MD Ot I48.91 UNSPECIFIED ATRIAL FIBRILLATION 06/05/2017 YELENA MAN MD Ot K21.9 GASTRO-ESOPHAGEAL REFLUX DISEASE WITHOUT 06/05/2017 YELENA MAN MD Ot R07.9 CHEST PAIN, UNSPECIFIED 06/05/2017 GAULT MD, YELENA R Ot R42 DIZZINESS AND GIDDINESS 06/05/2017 DONOVAN GONSALEZ, YELENA [place] Ot R45.1 RESTLESSNESS AND AGITATION 06/05/2017 YELENA MAN MD Ot Z66 DO NOT RESUSCITATE 06/05/2017 DONOVAN GONSALEZ, YELENA [place] Ot Z79.02 SENIOR LIVING (CURRENT) USE OF ANTITHROMBOTI 06/05/2017 YELENA MAN MD Ot 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 06/05/2017 YELENA MAN MD Ot 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 06/05/2017 YELENA MAN MD Ot Z87.891 PERSONAL HISTORY OF NICOTINE DEPENDENCE 06/05/2017 DONOVAN GONSALEZ, YELENA [place] Ot E03.9 HYPOTHYROIDISM, UNSPECIFIED 06/05/2017 YELENA MAN MD Ot E11.9 TYPE 2 DIABETES MELLITUS WITHOUT COMPLIC 06/05/2017 DONOVAN GONSALEZ, YELENA [place] Ot F02.81 DEMENTIA IN OTH DISEASES CLASSD ELSWHR W 06/05/2017 YELENA MAN MD Ot F31.9 BIPOLAR DISORDER, UNSPECIFIED 06/05/2017 YELENA MAN MD Ot F41.9 ANXIETY DISORDER, UNSPECIFIED 06/05/2017 YELENA MAN MD Ot 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 06/05/2017 DONOVAN GONSALEZ, YELENA [place] Ot G25.81 RESTLESS LEGS SYNDROME 06/05/2017 YELENA MAN MD Ot G30.9 ALZHEIMER'S DISEASE, UNSPECIFIED 06/05/2017 YELENA MAN MD Ot G47.00 INSOMNIA, UNSPECIFIED 06/05/2017 YELENA MAN MD Ot I10 ESSENTIAL (PRIMARY) HYPERTENSION 06/05/2017 YELENA MAN MD Ot I48.91 UNSPECIFIED ATRIAL FIBRILLATION 06/05/2017 YELENA MAN MD Ot K21.9 GASTRO-ESOPHAGEAL REFLUX DISEASE WITHOUT 06/05/2017 YELENA MAN MD Ot R07.9 CHEST PAIN, UNSPECIFIED 06/05/2017 YELENA MAN MD Ot R42 DIZZINESS AND GIDDINESS 06/05/2017 YELENA MAN MD Ot R45.1 RESTLESSNESS AND AGITATION 06/05/2017 YELENA MAN MD Ot Z66 DO NOT RESUSCITATE 06/05/2017 YELENA MAN MD, Ot Z79.02 SENIOR LIVING (CURRENT) USE OF ANTITHROMBOTI 06/05/2017 YELENA MAN MD, Ot Z79.82 SENIOR LIVING (CURRENT) USE OF ASPIRIN 06/05/2017 YELENA MAN MD, Ot 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 06/05/2017 YELENA MAN MD, Ot Z87.891 PERSONAL HISTORY OF NICOTINE DEPENDENCE Procedures Results Test Result Range Influenza virus A and B antigen detection - 12/18/16 22:30 FLU RESULT NEGATIVE FOR INFLUENZA A AND B ANTIGENS BY [facility] Complete blood count (CBC) with automated white blood cell (WBC) differential - 02/22/17 17:35 Blood leukocytes automated count (number/volume) 6.8 10*3/ uL 4.3-11.0 Blood erythrocytes automated count (number/volume) 4.72 10*6 /uL 4.35-5.85 Venous blood hemoglobin measurement (mass/volume) 13.8 g/dL 11.5-16.0 Blood hematocrit (volume fraction) 40 % 35-52 Automated erythrocyte mean corpuscular volume 85 [foz_us] 80-99 Automated erythrocyte mean corpuscular hemoglobin (mass per erythrocyte) 29 pg 25-34 Automated erythrocyte mean corpuscular hemoglobin concentration measurement ( mass/volume) 35 g/dL 32-36 Automated erythrocyte distribution width ratio 13.0 % 10.0-14.5 Automated blood platelet count (count/volume) 187 10*3/uL 130-400 Automated blood platelet mean volume measurement 9.9 [foz_us ] 7.4-10.4 Automated blood neutrophils/100 leukocytes 68 % 42-75 Automated blood lymphocytes/100 leukocytes 22 % 12-44 Blood monocytes/100 leukocytes 9 % 0-12 Automated blood eosinophils/100 leukocytes 1 % 0-10 Automated blood basophils/100 leukocytes 0 % 0-10 Blood neutrophils automated count (number/volume) 4.6 10*3 1.8-7.8 Blood lymphocytes automated count (number/volume) 1.5 10*3 1.0-4.0 Blood monocytes automated count (number/volume) 0.6 10*3 0.0-1.0 Automated eosinophil count 0.1 10*3/uL 0.0-0.3 Automated blood basophil count (count/volume) 0.0 10*3/uL 0.0-0.1 PT panel in platelet poor plasma by coagulation assay - 02/22/17 17:35 Prothrombin time (PT) in platelet poor plasma by coagulation assay 12.5 s 12.2-14.7 INR in platelet poor plasma or blood by coagulation assay 1.0 0.8-1.4 Activated partial thromboplastin time (aPTT) in platelet poor plasma bycoagulation assay - 02/22/17 17:35 Activated partial thromboplastin time (aPTT) in platelet poor plasma bycoagulation assay 24 s 24-35 Comprehensive metabolic panel - 02/22/17 17:35 Serum or plasma sodium measurement (moles/volume) 141 mmol/ L 135-145 Serum or plasma potassium measurement (moles/volume) 4.0 mmol/L 3.6-5.0 Serum or plasma chloride measurement (moles/volume) 109 mmol /L 98-107 Carbon dioxide 20 mmol/L 21-32 Serum or plasma anion gap determination (moles/volume) 12 mmol/L 5-14 Serum or plasma urea nitrogen measurement (mass/volume) 22 mg/dL 7-18 Serum or plasma creatinine measurement (mass/volume) 1.18 mg /dL 0.60-1.30 Serum or plasma urea nitrogen/creatinine mass ratio 19 NRG Serum or plasma creatinine measurement with calculation of estimated glomerular filtration rate 44 NRG Serum or plasma glucose measurement (mass/volume) 121 mg/dL 70-105 Serum or plasma calcium measurement (mass/volume) 9.1 mg/dL 8.5-10.1 Serum or plasma total bilirubin measurement (mass/volume) 0.3 mg/dL 0.1-1.0 Serum or plasma alkaline phosphatase measurement (enzymatic activity/volume) 147 U/L 40-136 Serum or plasma aspartate aminotransferase measurement (enzymatic activity/ volume) 14 U/L 5-34 Serum or plasma alanine aminotransferase measurement (enzymatic activity/volume ) < U/L 0-55 Serum or plasma protein measurement (mass/volume) 7.0 g/dL 6.4-8.2 Serum or plasma albumin measurement (mass/volume) 4.3 g/dL 3.2-4.5 Magnesium - 02/22/17 17:35 Magnesium 2.1 mg/dL 1.8-2.4 Serum or plasma troponin i.cardiac measurement (mass/volume) - 02/22/17 17:35 Serum or plasma troponin i.cardiac measurement (mass/volume) < ng/mL <0.30 Myoglobin, serum - 02/22/17 17:35 Myoglobin, serum 36.2 ng/mL 10.0-92.0 Complete urinalysis with reflex to culture - 02/22/17 17:58 Urine color determination YELLOW NRG Urine clarity determination CLEAR NRG Urine pH measurement by test strip 7 5- 9 Specific gravity of urine by test strip 1.010 1.016-1.022 Urine protein assay by test strip, semi-quantitative NEGATIVE NEGATIVE Urine glucose detection by automated test strip NEGATIVE NEGATIVE Erythrocytes detection in urine sediment by light microscopy NEGATIVE NEGATIVE Urine ketones detection by automated test strip NEGATIVE NEGATIVE Urine nitrite detection by test strip NEGATIVE NEGATIVE Urine total bilirubin detection by test strip NEGATIVE NEGATIVE Urine urobilinogen measurement by automated test strip (mass/volume) NORMAL NORMAL Urine leukocyte esterase detection by dipstick 1+ NEGATIVE Automated urine sediment erythrocyte count by microscopy (number/high power field) NONE NRG Automated urine sediment leukocyte count by microscopy (number/high power field ) [HPF] NRG Bacteria detection in urine sediment by light microscopy NEGATIVE NRG Crystals detection in urine sediment by light microscopy NONE NRG Casts detection in urine sediment by light microscopy NONE NRG Mucus detection in urine sediment by light microscopy NEGATIVE NRG Complete urinalysis with reflex to culture NO NRG Complete blood count (CBC) with automated white blood cell (WBC) differential - 06/01/17 16:20 Blood leukocytes automated count (number/volume) 7.4 10*3/ uL 4.3-11.0 Blood erythrocytes automated count (number/volume) 4.97 10*6 /uL 4.35-5.85 Venous blood hemoglobin measurement (mass/volume) 14.3 g/dL 11.5-16.0 Blood hematocrit (volume fraction) 42 % 35-52 Automated erythrocyte mean corpuscular volume 84 [foz_us] 80-99 Automated erythrocyte mean corpuscular hemoglobin (mass per erythrocyte) 29 pg 25-34 Automated erythrocyte mean corpuscular hemoglobin concentration measurement ( mass/volume) 34 g/dL 32-36 Automated erythrocyte distribution width ratio 13.0 % 10.0-14.5 Automated blood platelet count (count/volume) 215 10*3/uL 130-400 Automated blood platelet mean volume measurement 9.8 [foz_us ] 7.4-10.4 Automated blood neutrophils/100 leukocytes 75 % 42-75 Automated blood lymphocytes/100 leukocytes 17 % 12-44 Blood monocytes/100 leukocytes 7 % 0-12 Automated blood eosinophils/100 leukocytes 1 % 0-10 Automated blood basophils/100 leukocytes 0 % 0-10 Blood neutrophils automated count (number/volume) 5.6 10*3 1.8-7.8 Blood lymphocytes automated count (number/volume) 1.3 10*3 1.0-4.0 Blood monocytes automated count (number/volume) 0.5 10*3 0.0-1.0 Automated eosinophil count 0.1 10*3/uL 0.0-0.3 Automated blood basophil count (count/volume) 0.0 10*3/uL 0.0-0.1 PT panel in platelet poor plasma by coagulation assay - 06/01/17 16:20 Prothrombin time (PT) in platelet poor plasma by coagulation assay 12.5 s 12.2-14.7 INR in platelet poor plasma or blood by coagulation assay 1.0 0.8-1.4 Activated partial thromboplastin time (aPTT) in platelet poor plasma bycoagulation assay - 06/01/17 16:20 Activated partial thromboplastin time (aPTT) in platelet poor plasma bycoagulation assay 25 s 24-35 Comprehensive metabolic panel - 06/01/17 16:20 Serum or plasma sodium measurement (moles/volume) 141 mmol/ L 135-145 Serum or plasma potassium measurement (moles/volume) 4.0 mmol/L 3.6-5.0 Serum or plasma chloride measurement (moles/volume) 107 mmol /L 98-107 Carbon dioxide 22 mmol/L 21-32 Serum or plasma anion gap determination (moles/volume) 12 mmol/L 5-14 Serum or plasma urea nitrogen measurement (mass/volume) 23 mg/dL 7-18 Serum or plasma creatinine measurement (mass/volume) 1.29 mg /dL 0.60-1.30 Serum or plasma urea nitrogen/creatinine mass ratio 18 NRG Serum or plasma creatinine measurement with calculation of estimated glomerular filtration rate 39 NRG Serum or plasma glucose measurement (mass/volume) 145 mg/dL 70-105 Serum or plasma calcium measurement (mass/volume) 9.6 mg/dL 8.5-10.1 Serum or plasma total bilirubin measurement (mass/volume) 0.3 mg/dL 0.1-1.0 Serum or plasma alkaline phosphatase measurement (enzymatic activity/volume) 162 U/L 40-136 Serum or plasma aspartate aminotransferase measurement (enzymatic activity/ volume) 12 U/L 5-34 Serum or plasma alanine aminotransferase measurement (enzymatic activity/volume ) 8 U/L 0-55 Serum or plasma protein measurement (mass/volume) 8.0 g/dL 6.4-8.2 Serum or plasma albumin measurement (mass/volume) 4.7 g/dL 3.2-4.5 Serum or plasma creatine kinase measurement (enzymatic activity/volume) - 06/01 16:20 Serum or plasma creatine kinase measurement (enzymatic activity/volume) 54 U/L 29-168 Serum or plasma creatine kinase MB measurement (enzymatic activity/volume) - 16:20 Serum or plasma creatine kinase MB measurement (enzymatic activity/volume) 2.1 ng/mL <6.6 Serum or plasma troponin i.cardiac measurement (mass/volume) - 06/01/17 16:20 Serum or plasma troponin i.cardiac measurement (mass/volume) < ng/mL <0.30 Magnesium - 06/01/17 16:20 Magnesium 2.1 mg/dL 1.8-2.4 Serum or plasma lithium measurement (moles/volume) - 06/01/17 16:20 BNP level 238.0 pg/mL <100.0 Serum or plasma amylase measurement (enzymatic activity/volume) - 06/01/17 16: 20 Serum or plasma amylase measurement (enzymatic activity/volume) 44 U/L 25-125 Lipase - 06/01/17 16:20 Lipase 20 U/L 8-78 Serum or plasma thyrotropin measurement by detection limit <=0.05 miu/l (units/ volume) - 06/01/17 16:20 Serum or plasma thyrotropin measurement by detection limit <=0.05 miu/l (units/ volume) 0.78 u[iU]/mL 0.35-4.94 Capillary blood glucose measurement by glucometer (mass/volume) - 06/01/17 21: 22 Capillary blood glucose measurement by glucometer (mass/volume) 112 mg/dL 70-110 Methicillin resistant Staphylococcus aureus (MRSA) screening culture - 22:04 Methicillin resistant Staphylococcus aureus (MRSA) screening culture NEG NRG Serum or plasma troponin i.cardiac measurement (mass/volume) - 06/01/17 22:10 Serum or plasma troponin i.cardiac measurement (mass/volume) < ng/mL <0.30 Complete urinalysis with reflex to culture - 06/02/17 03:20 Urine color determination YELLOW NRG Urine clarity determination SLIGHTLY CLOUDY NRG Urine pH measurement by test strip 7 5- 9 Specific gravity of urine by test strip 1.010 1.016-1.022 Urine protein assay by test strip, semi-quantitative 1+ NEGATIVE Urine glucose detection by automated test strip NEGATIVE NEGATIVE Erythrocytes detection in urine sediment by light microscopy 1+ NEGATIVE Urine ketones detection by automated test strip NEGATIVE NEGATIVE Urine nitrite detection by test strip NEGATIVE NEGATIVE Urine total bilirubin detection by test strip NEGATIVE NEGATIVE Urine urobilinogen measurement by automated test strip (mass/volume) NORMAL NORMAL Urine leukocyte esterase detection by dipstick 3+ NEGATIVE Automated urine sediment erythrocyte count by microscopy (number/high power field) RARE NRG Automated urine sediment leukocyte count by microscopy (number/high power field ) [HPF] NRG Bacteria detection in urine sediment by light microscopy TRACE NRG Squamous epithelial cells detection in urine sediment by light microscopy RARE NRG Crystals detection in urine sediment by light microscopy NONE NRG Casts detection in urine sediment by light microscopy NONE NRG Mucus detection in urine sediment by light microscopy SMALL NRG Complete urinalysis with reflex to culture NO NRG Whole blood basic metabolic panel - 06/02/17 04:15 Serum or plasma sodium measurement (moles/volume) 140 mmol/ L 135-145 Serum or plasma potassium measurement (moles/volume) 4.0 mmol/L 3.6-5.0 Serum or plasma chloride measurement (moles/volume) 108 mmol /L 98-107 Carbon dioxide 19 mmol/L 21-32 Serum or plasma anion gap determination (moles/volume) 13 mmol/L 5-14 Serum or plasma urea nitrogen measurement (mass/volume) 20 mg/dL 7-18 Serum or plasma creatinine measurement (mass/volume) 0.92 mg /dL 0.60-1.30 Serum or plasma urea nitrogen/creatinine mass ratio 22 NRG Serum or plasma creatinine measurement with calculation of estimated glomerular filtration rate 58 NRG Serum or plasma glucose measurement (mass/volume) 149 mg/dL 70-105 Serum or plasma calcium measurement (mass/volume) 9.3 mg/dL 8.5-10.1 Serum or plasma phosphate measurement (mass/volume) - 06/02/17 04:15 Serum or plasma phosphate measurement (mass/volume) 2.9 mg/ dL 2.3-4.7 Magnesium - 06/02/17 04:15 Magnesium 2.1 mg/dL 1.8-2.4 Complete blood count (CBC) with automated white blood cell (WBC) differential - 06/02/17 08:47 Blood leukocytes automated count (number/volume) 9.5 10*3/ uL 4.3-11.0 Blood erythrocytes automated count (number/volume) 5.11 10*6 /uL 4.35-5.85 Venous blood hemoglobin measurement (mass/volume) 14.8 g/dL 11.5-16.0 Blood hematocrit (volume fraction) 43 % 35-52 Automated erythrocyte mean corpuscular volume 85 [foz_us] 80-99 Automated erythrocyte mean corpuscular hemoglobin (mass per erythrocyte) 29 pg 25-34 Automated erythrocyte mean corpuscular hemoglobin concentration measurement ( mass/volume) 34 g/dL 32-36 Automated erythrocyte distribution width ratio 13.0 % 10.0-14.5 Automated blood platelet count (count/volume) 213 10*3/uL 130-400 Automated blood platelet mean volume measurement 10.0 [foz_ us] 7.4-10.4 Automated blood neutrophils/100 leukocytes 81 % 42-75 Automated blood lymphocytes/100 leukocytes 12 % 12-44 Blood monocytes/100 leukocytes 6 % 0-12 Automated blood eosinophils/100 leukocytes 0 % 0-10 Automated blood basophils/100 leukocytes 0 % 0-10 Blood neutrophils automated count (number/volume) 7.7 10*3 1.8-7.8 Blood lymphocytes automated count (number/volume) 1.2 10*3 1.0-4.0 Blood monocytes automated count (number/volume) 0.6 10*3 0.0-1.0 Automated eosinophil count 0.0 10*3/uL 0.0-0.3 Automated blood basophil count (count/volume) 0.0 10*3/uL 0.0-0.1 Capillary blood glucose measurement by glucometer (mass/volume) - 06/02/17 11: 40 Capillary blood glucose measurement by glucometer (mass/volume) 186 mg/dL 70-110 Capillary blood glucose measurement by glucometer (mass/volume) - 06/02/17 16: 28 Capillary blood glucose measurement by glucometer (mass/volume) 127 mg/dL 70-110 Capillary blood glucose measurement by glucometer (mass/volume) - 06/02/17 21: 20 Capillary blood glucose measurement by glucometer (mass/volume) 240 mg/dL 70-110 Complete blood count (CBC) with automated white blood cell (WBC) differential - 06/03/17 03:52 Blood leukocytes automated count (number/volume) 7.8 10*3/ uL 4.3-11.0 Blood erythrocytes automated count (number/volume) 4.77 10*6 /uL 4.35-5.85 Venous blood hemoglobin measurement (mass/volume) 13.9 g/dL 11.5-16.0 Blood hematocrit (volume fraction) 41 % 35-52 Automated erythrocyte mean corpuscular volume 85 [foz_us] 80-99 Automated erythrocyte mean corpuscular hemoglobin (mass per erythrocyte) 29 pg 25-34 Automated erythrocyte mean corpuscular hemoglobin concentration measurement ( mass/volume) 34 g/dL 32-36 Automated erythrocyte distribution width ratio 13.1 % 10.0-14.5 Automated blood platelet count (count/volume) 198 10*3/uL 130-400 Automated blood platelet mean volume measurement 10.2 [foz_ us] 7.4-10.4 Automated blood neutrophils/100 leukocytes 66 % 42-75 Automated blood lymphocytes/100 leukocytes 25 % 12-44 Blood monocytes/100 leukocytes 7 % 0-12 Automated blood eosinophils/100 leukocytes 2 % 0-10 Automated blood basophils/100 leukocytes 0 % 0-10 Blood neutrophils automated count (number/volume) 5.1 10*3 1.8-7.8 Blood lymphocytes automated count (number/volume) 2.0 10*3 1.0-4.0 Blood monocytes automated count (number/volume) 0.6 10*3 0.0-1.0 Automated eosinophil count 0.1 10*3/uL 0.0-0.3 Automated blood basophil count (count/volume) 0.0 10*3/uL 0.0-0.1 Whole blood basic metabolic panel - 06/03/17 03:52 Serum or plasma sodium measurement (moles/volume) 142 mmol/ L 135-145 Serum or plasma potassium measurement (moles/volume) 3.7 mmol/L 3.6-5.0 Serum or plasma chloride measurement (moles/volume) 110 mmol /L 98-107 Carbon dioxide 17 mmol/L 21-32 Serum or plasma anion gap determination (moles/volume) 15 mmol/L 5-14 Serum or plasma urea nitrogen measurement (mass/volume) 24 mg/dL 7-18 Serum or plasma creatinine measurement (mass/volume) 0.84 mg /dL 0.60-1.30 Serum or plasma urea nitrogen/creatinine mass ratio 29 NRG Serum or plasma creatinine measurement with calculation of estimated glomerular filtration rate > NRG Serum or plasma glucose measurement (mass/volume) 112 mg/dL 70-105 Serum or plasma calcium measurement (mass/volume) 8.8 mg/dL 8.5-10.1 Serum or plasma phosphate measurement (mass/volume) - 06/03/17 03:52 Serum or plasma phosphate measurement (mass/volume) 3.2 mg/ dL 2.3-4.7 Magnesium - 06/03/17 03:52 Magnesium 2.0 mg/dL 1.8-2.4 Capillary blood glucose measurement by glucometer (mass/volume) - 06/03/17 12: 43 Capillary blood glucose measurement by glucometer (mass/volume) 115 mg/dL 70-110 Capillary blood glucose measurement by glucometer (mass/volume) - 06/03/17 15: 51 Capillary blood glucose measurement by glucometer (mass/volume) 153 mg/dL 70-110 Capillary blood glucose measurement by glucometer (mass/volume) - 06/03/17 20: 33 Capillary blood glucose measurement by glucometer (mass/volume) 167 mg/dL 70-110 Complete blood count (CBC) with automated white blood cell (WBC) differential - 06/04/17 03:38 Blood leukocytes automated count (number/volume) 6.3 10*3/ uL 4.3-11.0 Blood erythrocytes automated count (number/volume) 4.35 10*6 /uL 4.35-5.85 Venous blood hemoglobin measurement (mass/volume) 12.6 g/dL 11.5-16.0 Blood hematocrit (volume fraction) 37 % 35-52 Automated erythrocyte mean corpuscular volume 85 [foz_us] 80-99 Automated erythrocyte mean corpuscular hemoglobin (mass per erythrocyte) 29 pg 25-34 Automated erythrocyte mean corpuscular hemoglobin concentration measurement ( mass/volume) 34 g/dL 32-36 Automated erythrocyte distribution width ratio 12.8 % 10.0-14.5 Automated blood platelet count (count/volume) 195 10*3/uL 130-400 Automated blood platelet mean volume measurement 10.1 [foz_ us] 7.4-10.4 Automated blood neutrophils/100 leukocytes 72 % 42-75 Automated blood lymphocytes/100 leukocytes 17 % 12-44 Blood monocytes/100 leukocytes 9 % 0-12 Automated blood eosinophils/100 leukocytes 2 % 0-10 Automated blood basophils/100 leukocytes 0 % 0-10 Blood neutrophils automated count (number/volume) 4.5 10*3 1.8-7.8 Blood lymphocytes automated count (number/volume) 1.1 10*3 1.0-4.0 Blood monocytes automated count (number/volume) 0.6 10*3 0.0-1.0 Automated eosinophil count 0.1 10*3/uL 0.0-0.3 Automated blood basophil count (count/volume) 0.0 10*3/uL 0.0-0.1 Whole blood basic metabolic panel - 06/04/17 03:38 Serum or plasma sodium measurement (moles/volume) 139 mmol/ L 135-145 Serum or plasma potassium measurement (moles/volume) 3.6 mmol/L 3.6-5.0 Serum or plasma chloride measurement (moles/volume) 107 mmol /L 98-107 Carbon dioxide 20 mmol/L 21-32 Serum or plasma anion gap determination (moles/volume) 12 mmol/L 5-14 Serum or plasma urea nitrogen measurement (mass/volume) 22 mg/dL 7-18 Serum or plasma creatinine measurement (mass/volume) 0.91 mg /dL 0.60-1.30 Serum or plasma urea nitrogen/creatinine mass ratio 24 NRG Serum or plasma creatinine measurement with calculation of estimated glomerular filtration rate 59 NRG Serum or plasma glucose measurement (mass/volume) 142 mg/dL 70-105 Serum or plasma calcium measurement (mass/volume) 9.1 mg/dL 8.5-10.1 Serum or plasma phosphate measurement (mass/volume) - 06/04/17 03:38 Serum or plasma phosphate measurement (mass/volume) 3.2 mg/ dL 2.3-4.7 Magnesium - 06/04/17 03:38 Magnesium 1.9 mg/dL 1.8-2.4 Capillary blood glucose measurement by glucometer (mass/volume) - 06/04/17 11: 57 Capillary blood glucose measurement by glucometer (mass/volume) 198 mg/dL 70-110 Capillary blood glucose measurement by glucometer (mass/volume) - 06/04/17 17: 31 Capillary blood glucose measurement by glucometer (mass/volume) 152 mg/dL 70-110 Capillary blood glucose measurement by glucometer (mass/volume) - 06/04/17 21: 29 Capillary blood glucose measurement by glucometer (mass/volume) 133 mg/dL 70-110 Complete blood count (CBC) with automated white blood cell (WBC) differential - 06/05/17 03:18 Blood leukocytes automated count (number/volume) 8.0 10*3/ uL 4.3-11.0 Blood erythrocytes automated count (number/volume) 4.33 10*6 /uL 4.35-5.85 Venous blood hemoglobin measurement (mass/volume) 12.8 g/dL 11.5-16.0 Blood hematocrit (volume fraction) 37 % 35-52 Automated erythrocyte mean corpuscular volume 85 [foz_us] 80-99 Automated erythrocyte mean corpuscular hemoglobin (mass per erythrocyte) 30 pg 25-34 Automated erythrocyte mean corpuscular hemoglobin concentration measurement ( mass/volume) 35 g/dL 32-36 Automated erythrocyte distribution width ratio 12.9 % 10.0-14.5 Automated blood platelet count (count/volume) 176 10*3/uL 130-400 Automated blood platelet mean volume measurement 9.8 [foz_us ] 7.4-10.4 Automated blood neutrophils/100 leukocytes 75 % 42-75 Automated blood lymphocytes/100 leukocytes 15 % 12-44 Blood monocytes/100 leukocytes 8 % 0-12 Automated blood eosinophils/100 leukocytes 2 % 0-10 Automated blood basophils/100 leukocytes 0 % 0-10 Blood neutrophils automated count (number/volume) 6.0 10*3 1.8-7.8 Blood lymphocytes automated count (number/volume) 1.2 10*3 1.0-4.0 Blood monocytes automated count (number/volume) 0.7 10*3 0.0-1.0 Automated eosinophil count 0.2 10*3/uL 0.0-0.3 Automated blood basophil count (count/volume) 0.0 10*3/uL 0.0-0.1 Whole blood basic metabolic panel - 06/05/17 03:18 Serum or plasma sodium measurement (moles/volume) 138 mmol/ L 135-145 Serum or plasma potassium measurement (moles/volume) 3.9 mmol/L 3.6-5.0 Serum or plasma chloride measurement (moles/volume) 106 mmol /L 98-107 Carbon dioxide 17 mmol/L 21-32 Serum or plasma anion gap determination (moles/volume) 15 mmol/L 5-14 Serum or plasma urea nitrogen measurement (mass/volume) 22 mg/dL 7-18 Serum or plasma creatinine measurement (mass/volume) 0.88 mg /dL 0.60-1.30 Serum or plasma urea nitrogen/creatinine mass ratio 25 NRG Serum or plasma creatinine measurement with calculation of estimated glomerular filtration rate > NRG Serum or plasma glucose measurement (mass/volume) 120 mg/dL 70-105 Serum or plasma calcium measurement (mass/volume) 9.0 mg/dL 8.5-10.1 Serum or plasma phosphate measurement (mass/volume) - 06/05/17 03:18 Serum or plasma phosphate measurement (mass/volume) 2.7 mg/ dL 2.3-4.7 Magnesium - 06/05/17 03:18 Magnesium 2.1 mg/dL 1.8-2.4 Encounters ACCT No. Visit Date/Time Discharge Status Pt. Type Provider Facility Loc./Unit Complaint [id number] 01/15/2015 10:26:00 01/15/2015 23: 59:59 CLS Outpatient BEVERLY BALLESTEROS APRN [id number] 08/28/2014 07:40:00 08/28/2014 23: 59:59 CLS Outpatient BEVERLY BALLESTEROS APRN [id number] 07/03/2014 11:57:00 07/03/2014 23: 59:59 CLS Outpatient BEVERLY BALLESTEROS APRN [id number] 06/24/2014 13:19:00 06/24/2014 23: 59:59 CLS Outpatient VERONICA SPRINGER MD [id number] 06/19/2014 11:08:00 06/19/2014 23: 59:59 CLS Outpatient BEVERLY BALLESTEROS APRN [id number] 05/15/2014 12:02:00 05/15/2014 23: 59:59 CLS Outpatient BEVERLY BALLESTEROS APRN [id number] 05/01/2014 07:52:00 05/01/2014 23: 59:59 [facility] Outpatient BEVERLY BALLESTEROS APRN [id number] 04/10/2014 12:54:00 04/10/2014 23: 59:59 [facility] Outpatient RACHEAL GONSALEZ, VERONICA
--- OUTSIDE RECORDS SUMMARY | 2017-06-09 02:05 | XMS REPORT | Continuity of Care Document ---
Author Author [facility] Address Unknown Phone Unavailable Allergies Active Description Code Type Severity Reaction Onset Reported/Identified Relationship to Patient Clinical Status Yes amitriptyline [id number] Drug Allergy Mild PSYCH-HYPERACTI 08/27/2009 Yes Ativan Drug Allergy N/A N/A 04/04/2014 Yes Haldol Drug Allergy N/A N/A 04/04/2014 Yes Valium Drug Allergy N/A N/A 04/04/2014 Yes diazepam [id number] Drug Allergy Unknown N/A 08/02/2015 Yes haloperidol [id number] Drug Allergy Unknown N/A 08/02/2015 Yes lorazepam [id number] Drug Allergy Unknown N/A 08/02/2015 Medications Problems [...] SPRINGER MD 427.31 ATRIAL FIBRILLATION 04/10/2014 FAVIAN DOUBLE END SEWER, BEVERLY S 250.00 DIABETES MELLITUS WITHOUT MENTION OF COMPLICATION TYPE II OR UNSPECIFIED TYPE NOT STATED UNCONTROLLED 04/10/2014 FAVIAN WILKINSON BEVERLY S 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 04/10/2014 FAVIAN WILKINSON BEVERLY S 311 DEPRESSIVE DISORDER NOT ELSEWHERE CLASSIFIED 04/10/2014 FAVIAN DOUBLE END SEWER, BEVERLY S 401.1 BENIGN ESSENTIAL HYPERTENSION 04/10/2014 FAVIAN DOUBLE END SEWER, BEVERLY S 427.31 ATRIAL FIBRILLATION 04/10/2014 FAVIAN DOUBLE END SEWER, BEVERLY S 250.00 DIABETES MELLITUS WITHOUT MENTION OF COMPLICATION TYPE II OR UNSPECIFIED TYPE NOT STATED UNCONTROLLED 04/10/2014 FAVIAN DOUBLE END SEWER, BEVERLY S 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 04/10/2014 FAVIAN WILKINSON BEVERLY S 311 DEPRESSIVE DISORDER NOT ELSEWHERE CLASSIFIED 04/10/2014 FAVIAN DOUBLE END SEWER, BEVERLY S 401.1 BENIGN ESSENTIAL HYPERTENSION 04/10/2014 FAVIAN DOUBLE END SEWER, BEVERLY S 427.31 ATRIAL FIBRILLATION 04/10/2014 FAVIAN DOUBLE END SEWER, BEVERLY S 250.00 DIABETES MELLITUS WITHOUT MENTION OF COMPLICATION TYPE II OR UNSPECIFIED TYPE NOT STATED UNCONTROLLED 04/10/2014 FAVIAN DOUBLE END SEWER, BEVERLY S 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 04/10/2014 FAVIAN DOUBLE END SEWER, BEVERLY S 311 DEPRESSIVE DISORDER NOT ELSEWHERE [...] SPRINGER MD 427.31 ATRIAL FIBRILLATION 04/10/2014 FAVIAN DOUBLE END SEWER, BEVERLY S 250.00 DIABETES MELLITUS WITHOUT MENTION OF COMPLICATION TYPE II OR UNSPECIFIED TYPE NOT STATED UNCONTROLLED 04/10/2014 FAVIAN WILKINSON, BEVERLY S 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 04/10/2014 FAVIAN WILKINSON BEVERLY S 311 DEPRESSIVE DISORDER NOT ELSEWHERE CLASSIFIED 04/10/2014 FAVIAN WILKINSON, BEVERLY S 401.1 BENIGN ESSENTIAL HYPERTENSION 04/10/2014 FAVIAN WILKINSON, BEVERLY S 427.31 ATRIAL FIBRILLATION 04/10/2014 FAVIAN DOUBLE END SEWER, BEVERLY S 250.00 DIABETES MELLITUS WITHOUT MENTION OF COMPLICATION TYPE II OR UNSPECIFIED TYPE NOT STATED UNCONTROLLED 04/10/2014 FAVIAN DOUBLE END SEWER, BEVERLY S 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 04/10/2014 FAVIAN SANTIAGON, BEVERLY S 311 DEPRESSIVE DISORDER NOT ELSEWHERE CLASSIFIED 04/10/2014 FAVIAN DOUBLE END SEWER, BEVERLY S 401.1 BENIGN ESSENTIAL HYPERTENSION 04/10/2014 FAVIAN SANTIAGON, BEVERLY S 427.31 ATRIAL FIBRILLATION 04/10/2014 FAVIAN WILKINSON, BEVERLY S 250.00 DIABETES MELLITUS WITHOUT MENTION OF COMPLICATION TYPE II OR UNSPECIFIED TYPE NOT STATED UNCONTROLLED 04/10/2014 FAVIAN DOUBLE END SEWER, BEVERLY S 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 04/10/2014 FAVIAN DOUBLE END SEWER, BEVERLY S 311 DEPRESSIVE DISORDER NOT ELSEWHERE CLASSIFIED 04/10/2014 FAVIAN DOUBLE END SEWER, BEVERLY S 401.1 BENIGN ESSENTIAL HYPERTENSION 04/10/2014 FAVIAN DOUBLE END SEWER, BEVERLY S 427.31 ATRIAL FIBRILLATION 05/15/2014 FAVIAN WILKINSON, BEVERLY S 296.80 BIPOLAR DISORDER UNSPECIFIED 05/15/2014 FAVIAN DOUBLE END SEWER, BEVERLY S 296.80 BIPOLAR DISORDER UNSPECIFIED 05/15/2014 VERONICA SPRINGER MD 296.80 BIPOLAR DISORDER UNSPECIFIED 05/15/2014 FAVIAN DOUBLE END SEWER, BEVERLY S 296.80 BIPOLAR DISORDER UNSPECIFIED 05/15/2014 FAVIAN DOUBLE END SEWER, BEVERLY S 296.80 BIPOLAR DISORDER UNSPECIFIED 05/15/2014 FAVIAN DOUBLE END SEWER, BEVERLY S 296.80 BIPOLAR DISORDER UNSPECIFIED 06/19/2014 FAVIAN DOUBLE END SEWER, BEVERLY S 786.2 COUGH 06/19/2014 VERONICA SPRNIGER MD 786.2 COUGH 06/19/2014 FAVIAN DOUBLE END SEWER, BEVERLY S 786.2 COUGH 06/19/2014 FAVIAN DOUBLE END SEWER, BEVERLY S 786.2 COUGH 06/19/2014 FAVIAN DOUBLE END SEWER, BEVERLY S 786.2 COUGH 06/24/2014 VERONICA SPRINGER MD 477.9 ALLERGIC RHINITIS CAUSE UNSPECIFIED 06/24/2014 FAVIAN DOUBLE END SEWER, BEVERLY S 477.9 ALLERGIC RHINITIS CAUSE UNSPECIFIED 06/24/2014 FAVIAN DOUBLE END SEWER, BEVERLY S 477.9 ALLERGIC RHINITIS CAUSE UNSPECIFIED 06/24/2014 FAVIAN DOUBLE END SEWER, BEVERLY S 477.9 ALLERGIC RHINITIS CAUSE UNSPECIFIED 07/03/2014 FAVIAN DOUBLE END SEWER, BEVERLY S 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 07/03/2014 FAVIAN DOUBLE END SEWER, BEVERLY S 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 07/03/2014 FAVIAN DOUBLE END SEWER, BEVERLY S 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 01/15/2015 FAVIAN DOUBLE END SEWER, BEVERLY S 562.11 DIVERTICULITIS OF COLON (WITHOUT [...] GONSALEZ, VERONICA F Ot V15.82 08/04/2015 RACHEAL GONSAELZ, VERONICA F Ot V15.88 08/04/2015 RACHEAL GONSALEZ, [...] GONSALEZ, SHON Zamora Ot F03.90 11/20/2015 RIGOBERTO GONSALEZ, SHON Zamora Ot Z59.3 11/20/2015 RIGOBERTO GONSALEZ, [...] UNSPECIFIED 02/22/2017 JESSICA PAINTING APRN Ot Z79.82 BARK SKINNER (CURRENT) USE OF ASPIRIN 02/22/2017 JESSICA PAINTING APRN Ot Z79.84 BARK SKINNER (CURRENT) USE OF ORAL HYPOGLYC 02/22/2017 JESSICA PAINTING APRN Ot Z79.899 OTHER B[place]INNER (CURRENT) DRUG THERAPY 02/23/2017 JESSICA PAINTING APRN Ot E11.9 TYPE 2 DIABETES MELLITUS WITHOUT COMPLIC 02/23/2017 JESSICA PAINTING DOUBLE END SEWER Ot F41.9 ANXIETY DISORDER, UNSPECIFIED 02/23/2017 JESSICA PAINTING DOUBLE END SEWER Ot I10 ESSENTIAL (PRIMARY) HYPERTENSION 02/23/2017 JESSICA PAINTING DOUBLE END SEWER Ot I48.2 CHRONIC ATRIAL FIBRILLATION 02/23/2017 JESSICA PAINTING DOUBLE END SEWER Ot R07.89 OTHER CHEST PAIN 02/23/2017 JESSICA PAINTING DOUBLE END SEWER Ot R07.9 CHEST PAIN, UNSPECIFIED 02/23/2017 JESSICA PAINTING DOUBLE END SEWER Ot Z79.82 GROUP HOME (CURRENT) USE OF ASPIRIN 02/23/2017 JESSICA PAINTING DOUBLE END SEWER Ot Z79.84 GROUP HOME (CURRENT) USE OF ORAL HYPOGLYC 02/23/2017 JESSICA PAINTING DOUBLE END SEWER Ot Z79.899 OTHER BARK SKINNER (CURRENT) DRUG THERAPY 02/28/2017 JESSICA PAINTING DOUBLE END SEWER Ot E11.9 TYPE 2 DIABETES MELLITUS WITHOUT COMPLIC 02/28/2017 JESSICA PAINTING DOUBLE END SEWER Ot F41.9 ANXIETY DISORDER, UNSPECIFIED 02/28/2017 JESSICA PAINTING DOUBLE END SEWER Ot I10 ESSENTIAL (PRIMARY) HYPERTENSION 02/28/2017 JESSICA PAINTING DOUBLE END SEWER Ot I48.2 CHRONIC ATRIAL FIBRILLATION 02/28/2017 JESSICA PAINTING DOUBLE END SEWER Ot R07.89 OTHER CHEST PAIN 02/28/2017 JESSICA PAINTING DOUBLE END SEWER Ot R07.9 CHEST PAIN, UNSPECIFIED 02/28/2017 JESSICA PAINTING DOUBLE END SEWER Ot Z79.82 GROUP HOME (CURRENT) USE OF ASPIRIN 02/28/2017 JESSICA PAINTING DOUBLE END SEWER Ot Z79.84 GROUP HOME (CURRENT) USE OF ORAL HYPOGLYC 02/28/2017 JESSICA PAINTING DOUBLE END SEWER Ot Z79.899 OTHER BARK SKINNER (CURRENT) DRUG THERAPY 06/02/2017 DONOVAN GONSALEZ, YELENA [...] RESUSCITATE 06/02/2017 YELENA MAN MD Ot Z79.02 BARK SKINNER (CURRENT) USE OF ANTITHROMBOTI 06/02/2017 YELENA MAN MD Ot Z79.82 GROUP HOME (CURRENT) USE OF ASPIRIN 06/02/2017 YELENA MAN MD Ot Z79.84 BARK SKINNER (CURRENT) USE OF ORAL HYPOGLYC 06/02/2017 YELENA [...] 06/03/2017 DONOVAN GONSALEZ, YELENA [place]vied[place] Ot Z79.02 BARK SKINNER (CURRENT) USE OF ANTITHROMBOTI 06/03/2017 YELENA MAN MD Ot Z79.82 GROUP HOME (CURRENT) USE OF ASPIRIN 06/03/2017 YELENA MAN MD Ot Z79.84 BARK SKINNER (CURRENT) USE OF ORAL HYPOGLYC 06/03/2017 DONOVAN GONSALEZ, YELENA [place] Ot Z87.891 PERSONAL HISTORY OF NICOTINE DEPENDENCE 06/03/2017 DONOVAN GONSALEZ, YELENA [place] Ot E03.9 HYPOTHYROIDISM, UNSPECIFIED 06/03/2017 DONOVAN GONSALEZ, YELENA [place] Ot E11.9 TYPE 2 DIABETES MELLITUS WITHOUT COMPLIC 06/03/2017 DONOVAN GONSALEZ, YELEAN [place] Ot F02.81 DEMENTIA IN OTH DISEASES [...] RESUSCITATE 06/03/2017 YELENA MAN MD Ot Z79.02 BARK SKINNER (CURRENT) USE OF ANTITHROMBOTI 06/03/2017 YELENA MAN MD Ot Z79.82 BARK SKINNER (CURRENT) USE OF ASPIRIN 06/03/2017 YELENA MAN MD Ot Z79.84 BARK SKINNER (CURRENT) USE OF ORAL HYPOGLYC 06/03/2017 YELENA [...] RESUSCITATE 06/04/2017 YELENA MAN MD Ot Z79.02 GROUP HOME (CURRENT) USE OF ANTITHROMBOTI 06/04/2017 YELENA MAN MD Ot Z79.82 GROUP HOME (CURRENT) USE OF ASPIRIN 06/04/2017 YELENA MAN MD Ot Z79.84 GROUP HOME (CURRENT) USE OF ORAL HYPOGLYC 06/04/2017 YELENA [...] 06/05/2017 DONOVAN GONSALEZ, YELENA [place]viedo Ot Z79.02 GROUP HOME (CURRENT) USE OF ANTITHROMBOTI 06/05/2017 YELENA MAN MD Ot Z79.82 BARK SKINNER (CURRENT) USE OF ASPIRIN 06/05/2017 YELENA MAN MD Ot Z79.84 BARK SKINNER (CURRENT) USE OF ORAL HYPOGLYC 06/05/2017 YELENA [...] RESUSCITATE 06/05/2017 YELENA MAN MD, Ot Z79.02 GROUP HOME (CURRENT) USE OF ANTITHROMBOTI 06/05/2017 YELENA MAN MD, Ot Z79.82 GROUP HOME (CURRENT) USE OF ASPIRIN 06/05/2017 YELENA MAN MD, Ot Z79.84 BARK SKINNER (CURRENT) USE OF ORAL HYPOGLYC 06/05/2017 YELENA MAN MD, Ot Z87.891 PERSONAL HISTORY OF NICOTINE DEPENDENCE Procedures Results Test Result Range Influenza virus A and B antigen detection - 12/18/16 22:30 FLU RESULT NEGATIVE FOR INFLUENZA A AND B ANTIGENS BY [facility] Complete blood count (CBC) with automated white [...] Status Pt. Type Provider Facility Loc./Unit Complaint [id number] 01/15/2015 10:26:00 01/15/2015 23: 59:59 CLS Outpatient BEVERLY BALLESTEROS APRN [id number] 08/28/2014 07:40:00 08/28/2014 23: 59:59 CLS Outpatient BEVERLY BALLESTEROS APRN [id number] 07/03/2014 11:57:00 07/03/2014 23: 59:59 CLS Outpatient BEVERLY BALLESTEROS APRN [id number] 06/24/2014 13:19:00 06/24/2014 23: 59:59 CLS Outpatient VERONICA SPRINGER MD [id number] 06/19/2014 11:08:00 06/19/2014 23: 59:59 CLS Outpatient BEVERLY BALLESTEROS APRN [id number] 05/15/2014 12:02:00 05/15/2014 23: 59:59 CLS Outpatient BEVERLY BALLESTEROS APRN [id number] 05/01/2014 07:52:00 05/01/2014 23: 59:59 [facility] Outpatient BEVERLY BALLESTEROS APRN [id number] 04/10/2014 12:54:00 04/10/2014 23: 59:59 [facility] Outpatient RACHEAL GONSALEZ, VERONICA
--- NOTE | 2017-06-09 09:01 | Physician Query Clarification ---
PQ-Further Specificity Admission/Discharge Admission Date: Jun 01, 2017 at 17:45 Discharge Date: Jun 05, 2017 at 12:47 The medical record reflects the following clinical scenario: History/Risk Factors: Dementia Clinical Findings: In the ED report under Progress notes @1800 the pt out of bed, has pulled out IV , removed all patches and monitoring devices and starting to walk out of room. Under impression Dementia w/anxiety. Nurses notes 06/02 20:41 - Pt pushing sitter and yelling at sitter, grabbed cup and broke it.. Took some med then spit some back out at this RN. Nurses notes 06/03 18:51 Aggressive to staff Treatment: Rivastigmine tartrate Question: Can you further specify if the Alzheimer's dementia is with or without behavioral disturbances per the clinical indicators above? Please document below. 1. Alzheimer's dementia with behavioral disturbances 2. Alzheimer's dementia without behavioral disturbances 3. Other, with explanation of the clinical findings. 4. Clinically undetermined, no explanation for the clinical findings. PHYSICIAN RESPONSE Can you specify per above: 1 In responding to this query, please exercise your independent professional judgment. The purpose of this communication is to more accurately reflect the complexity of your patients condition. The fact that a question is asked does not imply that any particular answer is desired or expected. Thank you for your timely response to this clarification. Requestors name: Holli THIS PHYSICIAN QUERY FORM IS A PERMANENT PART OF THE MEDICAL RECORD HOLLI MUSTAFA Jun 09, 2017 09:01 YELENA MAN MD Jun 20, 2017 13:35
== END 2017-06-05 12:47 | DRG 309 ==
LOC: EDUNIT# 15:49 → ER 15:49 → ICU 17:45
PROVIDERS: ADMIT Family Medicine; ATTEND Family Medicine
DX: I48.91 Unspecified atrial fibrillation (principal); G30.9 Alzheimer's disease, unspecified; F02.81 Dementia in other diseases classified elsewhere, unspecified severity, with behavioral disturbance; R45.1 Restlessness and agitation; F41.9 Anxiety disorder, unspecified; I10 Essential (primary) hypertension; Z66 Do not resuscitate; G25.81 Restless legs syndrome; G24.01 Drug induced subacute dyskinesia; K21.9 Gastro-esophageal reflux disease without esophagitis; E03.9 Hypothyroidism, unspecified; E11.9 Type 2 diabetes mellitus without complications; G47.00 Insomnia, unspecified; F31.9 Bipolar disorder, unspecified; R42 Dizziness and giddiness; Z79.84 Long term (current) use of oral hypoglycemic drugs; Z79.82 Long term (current) use of aspirin; Z79.02 Long term (current) use of antithrombotics/antiplatelets; Z87.891 Personal history of nicotine dependence
CPT/HCPCS: 36415; 71010; 80048; 80053; 81000; 82150; 82550; 82553; 82962; 83690; 83735; 83880; 84100; 84443; 84484; 85025; 85610; 85730; 87081; 93005; 93041; 93306; 96365; 96372; 96375

== ENCOUNTER 2018-06-12 11:31 | Emergency (ER) | payer MEDICARE, OTHER ==
[~2018-06-12] VITALS: Ht 167.6 cm; Wt 70.3 kg
[~2018-06-12 11:31] MED LIST changes: -AMIO200T2 PO; +AMIO200T4 PO; +DILT240C86 PO; +FERR-65 PO; +LACT1CAP45 PO; +MAGN500C16 PO; +MELA3TAB PO; -METF500T4 PO; +METF500T5 PO; +METO-370 PO; +RIVA10TA PO; -SCOP1PAT TD; +SCOP1PAT11 TD; +TRAZ-189 PO; -TRAZ-28 PO; +VIT-8 PO
[2018-06-12 12:22] LABS: BILIRUBIN,URINE NEGATIVE (NEGATIVE); CLARITY,URINE CLEAR; COLOR,URINE YELLOW; GLUCOSE, URINE (UA) NEGATIVE (NEGATIVE); KETONES,URINE NEGATIVE (NEGATIVE); LEUKOCYTE ESTERASE ,URINE 2+ (NEGATIVE); NITRITE,URINE NEGATIVE (NEGATIVE); PH,URINE 6 (5-9); PROTEIN,URINE NEGATIVE (NEGATIVE); UROBILINOGEN,URINE NORMAL (NORMAL)
[2018-06-12 12:30] LABS: BACTERIA,URINE NEGATIVE /HPF; WBC,URINE RARE /HPF
[2018-06-12 12:31] LABS: HYALINE CASTS, URINE 0-2 /LPF; URINE OTHER RARE TRANS EPI /HPF
--- NOTE | 2018-06-12 13:16 | ED Back Pain ---
General Chief Complaint: -Female Stated Complaint: CANNOT URINATE,POSS KID STONES Nursing Triage Note: ARRIVED VIA AMB TO ROOM 08 WITHOUT DIFFICULTY. COMPLAINS OF BILAT LOWER BACK PAIN X1 MONTH. THINKS SHE HAS A KIDNEY STONE. STATES SHE HAS HAD SEVERAL UA'S THAT HAVE BEEN NEGITIVE. Nursing Sepsis Screen: No Definite Risk Source of Information: Patient Exam Limitations: No Limitations History of Present Illness Date Seen by Provider: Jun 12, 2018 Time Seen by Provider: 13:15 Initial Comments o ER by her with a one-month history of bilateral flank pain right greater than left. No fevers or chills. No dysuria.I suspect that she might have a kidney stone. She's had urinalyses done at [facility] without any answers they state. No falls or trauma. Location: Lumbar Spine, Paraspinous Muscles Timing/Duration: 1-2 Days Severity: Moderate Associated Symptoms: lower back pain Allergies and Home Medications Allergies Coded Allergies: amitriptyline (Unverified Adverse Reaction, Mild, PSYCH-HYPERACTIVE, 08/27) diazepam (Verified Adverse Reaction, Unknown, 08/02/15) haloperidol (Verified Adverse Reaction, Unknown, 08/02/15) lorazepam (Verified Adverse Reaction, Unknown, 08/02/15) Home Medications Acetaminophen 325 Mg Tablet, 650 MG PO Q4H PRN for PAIN-MILD, (Reported) TAKES 2 (325MG) TABLETS Amlodipine Besylate 10 Mg Tablet, 10 MG PO DAILY, (Reported) Carbidopa/Levodopa 1 Each Tablet, 1 TAB PO BID, (Reported) Cetirizine HCl 10 Mg Tablet, 10 MG PO DAILY, (Reported) Clopidogrel Bisulfate 75 Mg Tablet, 75 MG PO DAILY, (Reported) Dextromethorphan HBr 15 Mg/5 Ml Liquid, 10 ML PO Q6H PRN for COUGH, (Reported) Diltiazem HCl 240 Mg Cap.er.24h, 240 MG PO DAILY Prescribed by: DONNA LOREDO on 06/05/17 1228 Famotidine 20 Mg Tablet, 20 MG PO BID, (Reported) Furosemide 40 Mg Tablet, 40 MG PO DAILY, (Reported) Gabapentin 100 Mg Capsule, 100 MG PO DAILY, (Reported) Gabapentin 100 Mg Capsule, 200 MG PO HS, (Reported) TAKES 2 (100MG) CAPSULES Lactobacillus Acidophilus 1 Each Capsule, 1 CAP PO DAILY, (Reported) Levothyroxine Sodium 125 Mcg Tablet, 125 MCG PO DAILY, (Reported) Loperamide HCl 2 Mg Tablet, 2 MG PO UD PRN for DIARRHEA, (Reported) Losartan Potassium 100 Mg Tablet, 100 MG PO DAILY, (Reported) Magnesium Oxide 500 Mg Capsule, 500 MG PO 0800,1200,1700, (Reported) Melatonin 3 Mg Tablet, 9 MG PO HS, (Reported) TAKES 3 (3MG) TABLETS Metoprolol Succinate 50 Mg Tab.er.24h, 50 MG PO DAILY Prescribed by: DONNA LOREDO on 06/05/17 1228 Oxcarbazepine 300 Mg Tablet, 300 MG PO HS, (Reported) Potassium Chloride 20 Meq Tab.er.prt, 20 MEQ PO TID, (Reported) Rivaroxaban 10 Mg Tablet, 10 MG PO HS Prescribed by: DONNA LOREDO on 06/05/17 1228 Rivastigmine Tartrate 6 Mg Capsule, 6 MG PO BID, (Reported) Ropinirole HCl 1 Mg Tablet, 1 MG PO BID, (Reported) Sennosides 8.6 Mg Tablet, 8.6 MG PO DAILY PRN for CONSTIPATION-5TH LINE, ( Reported) Sertraline HCl 100 Mg Tablet, 100 MG PO DAILY, (Reported) Tramadol HCl 50 Mg Tablet, 50 MG PO Q6H PRN for PAIN-MODERATE TO SEVERE Prescribed by: JESSICA PAINTING on 06/12/18 1355 Trazodone HCl 50 Mg Tablet, 50 MG PO HS, (Reported) Vit A/C/E AC/Znox/Cupric Oxide 1 Each Tablet, 1 TAB PO DAILY, (Reported) Patient Home Medication List Home Medication List Reviewed: Yes Constitutional: see HPI EENTM: see HPI Respiratory: no symptoms reported Cardiovascular: no symptoms reported Genitourinary: no symptoms reported Musculoskeletal: see HPI Skin: no symptoms reported Psychiatric/Neurological: No Symptoms Reported Past Staihww-Uddqvr-Xffehp Hx Patient Social History Type Used: Cigarettes Former Smoker, Quit: Jun 01, 1952 2nd Hand Smoke Exposure: No Recent Foreign Travel: No Contact w/Someone Who Travel: No Recent Infectious Disease Expo: No Recent Hopitalizations: No Immunizations Up To Date PED Vaccines UTD: No Date of Pneumonia Vaccine: Aug 03, 2013 Seasonal Allergies Seasonal Allergies: Yes Past Medical History Surgeries: Yes (CYSTOCELE/RECTOCELE) Appendectomy, Cardiac, Gallbladder, 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 Respiratory: No Cardiac: Yes (HEART CATH--NO INTERVENTIONS, BENIGN) Atrial Fibrillation, Chronic Edema/Swelling, Hypertension Neurological: Yes (RESTLESS LEG SYNDROME, DRUG-INDUCED DYSKINESIA) Dementia 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: 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, Menopausal Genitourinary: Yes (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) Bladder Infection Gastrointestinal: Yes Gastroesophageal Reflux, Chronic Constipation, Chronic Diarrhea Musculoskeletal: Yes (RESTLESS LEG SYNDROME, GENERALIZED PAIN) Endocrine: Yes Hypothyroidsim, Diabetes, Non-Insulin dep HEENT: Yes Hearing Impairment: Hard of Hearing Cancer: No Psychosocial: Yes (ALZHEIMERS, AGITATION, INSOMNIA) Sleep Difficulties, Anxiety, Bipolar, Depression Integumentary: No Blood Disorders: No Physical Exam Vital Signs Vital Signs - First Documented 06/12/18 12:08 Temp 95.8 Pulse 80 Resp 16 B/P (MAP) 155/65 (95) Pulse Ox 100 O2 Delivery Room Air Capillary Refill : Less Than 3 Seconds Height, Weight, BMI Height: 5'6.00" Weight: 155lbs. 9.6oz. [id number]; 25.5 BMI Method:Estimated General Appearance: No Apparent Distress, WD/WN Neck: Full Range of Motion, Normal Inspection Respiratory: No Accessory Muscle Use, No Respiratory Distress Back: Normal Inspection; No Muscle Spasm, No Vertebral Tenderness Extremity: Normal Capillary Refill Neurologic/Psychiatric: Alert, Oriented x3 Skin: Normal Color, Warm/Dry Progress/Results/Core Measures Results/Orders Lab Results Laboratory Tests Test 06/12/18 12:10 06/12/18 14:15 Range/Units Urine Color YELLOW Urine Clarity CLEAR Urine pH 6 5-9 Urine Specific [place] 1.015 L 1.016-1.022 Urine Protein NEGATIVE NEGATIVE Urine Glucose (UA) NEGATIVE NEGATIVE Urine Ketones NEGATIVE NEGATIVE Urine Nitrite NEGATIVE NEGATIVE Urine Bilirubin NEGATIVE NEGATIVE Urine Urobilinogen NORMAL NORMAL MG/DL Urine Leukocyte Esterase 2+ H NEGATIVE Urine RBC (Auto) NEGATIVE NEGATIVE Urine RBC NONE /HPF Urine WBC RARE /HPF Urine Squamous Epithelial Cells 2-5 /HPF Urine Crystals NONE /LPF Urine Bacteria NEGATIVE /HPF Urine Casts PRESENT /LPF Urine Hyaline Casts 0-2 H /LPF Urine Mucus NEGATIVE /LPF Urine Other RARE TRANS EPI /HPF Urine Culture Indicated NO White Blood Count 7.2 4.3-11.0 10^3/uL Red Blood Count 4.50 4.35-5.85 10^6/uL Hemoglobin 13.1 11.5-16.0 G/DL Hematocrit 38 35-52 % Mean Corpuscular Volume 84 80-99 FL Mean Corpuscular Hemoglobin 29 25-34 PG Mean Corpuscular Hemoglobin Concent 35 32-36 G/DL Red Cell Distribution Width 13.3 10.0-14.5 % Platelet Count 194 130-400 10^3/uL Mean Platelet Volume 10.2 7.4-10.4 FL Neutrophils (%) (Auto) 73 42-75 % Lymphocytes (%) (Auto) 19 12-44 % Monocytes (%) (Auto) 7 0-12 % Eosinophils (%) (Auto) 1 0-10 % Basophils (%) (Auto) 0 0-10 % Neutrophils # (Auto) 5.3 1.8-7.8 X 10^3 Lymphocytes # (Auto) 1.4 1.0-4.0 X 10^3 Monocytes # (Auto) 0.5 0.0-1.0 X 10^3 Eosinophils # (Auto) 0.1 0.0-0.3 10^3/uL Basophils # (Auto) 0.0 0.0-0.1 10^3/uL Sodium Level 140 135-145 MMOL/L Potassium Level 4.2 3.6-5.0 MMOL/L Chloride Level 108 H 98-107 MMOL/L Carbon Dioxide Level 20 L 21-32 MMOL/L Anion Gap 12 5-14 MMOL/L Blood Urea Nitrogen 17 7-18 MG/DL Creatinine 0.97 0.60-1.30 MG/DL Estimat Glomerular Filtration Rate 55 BUN/Creatinine Ratio 18 Glucose Level 110 H 70-105 MG/DL Calcium Level 9.8 8.5-10.1 MG/DL My Orders Orders - JESSICA PAINTING APRN Ct Lumbar Spine Wo (06/12/18 13:10) Ct Abd/Pelvis Wo(Kidney Stone) (06/12/18 13:10) Cbc With Automated Diff (06/12/18 13:14) Basic Metabolic Panel (06/12/18 13:14) Vital Signs/I&O 06/12/18 12:08 Temp 95.8 Pulse 80 Resp 16 B/P (MAP) 155/65 (95) Pulse Ox 100 O2 Delivery Room Air Blood Pressure Mean: 95 Diagnostic Imaging Diagonstic Imaging: Xray, CT Plain Films/CT/US/NM/MRI: chest Comments NAME: ROSENDA MENDEZ [facility] REC#: [id number] PT STATUS: REG ER : 1935 PHYSICIAN: JESSICA PAINTING APRN ADMIT DATE: 06/12/18/ER Draft Date of Exam:06/12/18 CT ABD/PELVIS WO(KIDNEY STONE) PROCEDURE: CT urinary tract, rule out kidney stone. TECHNIQUE: Multiple contiguous axial images were obtained through the abdomen and pelvis without the use of intravenous contrast. INDICATION: Low back pain radiating to the front and difficulty urinating. Comparison is made with prior CT from 04/19/2016. The lung bases are clear of acute infiltrates. No discrete liver mass is identified. There continues to be some intrahepatic and extrahepatic biliary duct dilatation, similar to prior CT. The pancreas and spleen are unremarkable. No adrenal mass is detected. No renal calculi or hydronephrosis is seen. There are small renal cortical low densities bilaterally, stable in size and most likely cysts. Aorta is calcified but nonaneurysmal. Small and large bowel loops of normal caliber. There is no obstruction. Note is made of a moderate sigmoid diverticulosis but no evidence of acute diverticulitis. There is no ascites. Bladder is unremarkable. IMPRESSION: 1. Stable intrahepatic and extrahepatic biliary duct dilatation when compared with CT 04/19/2016. 2. Bilateral renal cortical low densities, stable in size and again suggestive of cysts. 3. No evidence of urinary tract calculi or obstruction. 4. Uncomplicated diverticulosis. Dictated on workstation # [id number] Dict: 06/12/18 1400 Trans: 06/12/18 1406 [facility] [id number] Interpreted by: HELEN PHELPS MD Electronically signed by: NAME: ROSENDA MENDEZ [facility] REC#: [id number] PT STATUS: REG ER : 1935 PHYSICIAN: JESSICA PAINTING APRN ADMIT DATE: 06/12/18/ER Draft Date of Exam:06/12/18 CT LUMBAR SPINE WO PROCEDURE: CT lumbar spine without contrast. TECHNIQUE: Multiple contiguous axial images were obtained through the lumbar spine without the use of intravenous contrast. Sagittal and coronal reformations were then performed. INDICATION: Low back pain. FINDINGS: There is some straightening of the normal lumbar lordotic curvature. Minimal anterolisthesis of L4 on L5 is seen. The vertebral body heights are maintained. No acute compression fracture is identified. There is severe degenerative disc disease at all levels of the lumbar spine with disc space narrowing and marginal spurring as well as vacuum disc phenomena. Integrity of the central canal is difficult to assess but there does appear to be moderate central canal stenosis L3-4 and L4-5 levels due to a combination of ligamentous thickening, broad-based disc/osteophyte complex and facet changes. Paraspinous tissues are unremarkable. IMPRESSION: Severe lumbar spondylosis. No acute fracture is detected. Dictated on workstation # [id number] Dict: 06/12/18 1404 Trans: 06/12/18 1409 [id number] Interpreted by: HELEN PHELPS MD Electronically signed by: Departure Impression Primary Impression: Bilateral flank pain Additional Impression: Low back pain Disposition: 01 HOME, SELF-CARE Condition: Stable Departure-Patient Inst. Decision time for Depature: 13:53 Referrals: VERONICA SPRINGER MD (PCP/Family) Primary Care Physician Patient Instructions: Low Back Pain (DC) Add. Discharge Instructions: 1. Follow-up with her regular doctor 2. Return to ER for any concerns 3. Pain medication as directed 3.All discharge instructions reviewed with patient and/or family. Voiced understanding. Scripts Tramadol HCl (Ultram) 50 Mg Tablet 50 MG PO Q6H PRN for PAIN-MODERATE TO SEVERE, #20 TAB Prov: JESSICA PAINTING APRN 06/12/18 Copy Copies To 1: VERONICA SPRINGER MD; MELCHOR RAMOS MD, PETER J APRN Jun 12, 2018 13:16
[2018-06-12] MEDS ORDERED: TRAM-42 PO (13:55)
--- NOTE | 2018-06-12 14:07 | Diagnostic Imaging Report ---
PROCEDURE: CT urinary tract, rule out kidney stone. TECHNIQUE: Multiple contiguous axial images were obtained through the abdomen and pelvis without the use of intravenous contrast. INDICATION: Low back pain radiating to the front and difficulty urinating. Comparison is made with prior CT from 04/19/2016. The lung bases are clear of acute infiltrates. No discrete liver mass is identified. There continues to be some intrahepatic and extrahepatic biliary duct dilatation, similar to prior CT. The pancreas and spleen are unremarkable. No adrenal mass is detected. No renal calculi or hydronephrosis is seen. There are small renal cortical low densities bilaterally, stable in size and most likely cysts. Aorta is calcified but nonaneurysmal. Small and large bowel loops of normal caliber. There is no obstruction. Note is made of a moderate sigmoid diverticulosis but no evidence of acute diverticulitis. There is no ascites. Bladder is unremarkable. IMPRESSION: 1. Stable intrahepatic and extrahepatic biliary duct dilatation when compared with CT 04/19/2016. 2. Bilateral renal cortical low densities, stable in size and again suggestive of cysts. 3. No evidence of urinary tract calculi or obstruction. 4. Uncomplicated diverticulosis. Dictated by: Dictated on workstation # [id number]
--- NOTE | 2018-06-12 14:09 | Diagnostic Imaging Report ---
PROCEDURE: CT lumbar spine without contrast. TECHNIQUE: Multiple contiguous axial images were obtained through the lumbar spine without the use of intravenous contrast. Sagittal and coronal reformations were then performed. INDICATION: Low back pain. FINDINGS: There is some straightening of the normal lumbar lordotic curvature. Minimal anterolisthesis of L4 on L5 is seen. The vertebral body heights are maintained. No acute compression fracture is identified. There is severe degenerative disc disease at all levels of the lumbar spine with disc space narrowing and marginal spurring as well as vacuum disc phenomena. Integrity of the central canal is difficult to assess but there does appear to be moderate central canal stenosis L3-4 and L4-5 levels due to a combination of ligamentous thickening, broad-based disc/osteophyte complex and facet changes. Paraspinous tissues are unremarkable. IMPRESSION: Severe lumbar spondylosis. No acute fracture is detected. Dictated by: Dictated on workstation # [id number]
[2018-06-12 14:27] LABS: BASOPHILS % (AUTO) 0 % (0-10); EOSINOPHILS # (AUTO) 0.1 10^3/uL (0.0-0.3); EOSINOPHILS % (AUTO) 1 % (0-10); HEMATOCRIT 38 % (35-52); HEMOGLOBIN 13.1 G/DL (11.5-16.0); LYMPHOCYTES # (AUTO) 1.4 X 10^3 (1.0-4.0); LYMPHOCYTES % (AUTO) 19 % (12-44); MEAN CORPUSCULAR HEMOGLOBIN 29 PG (25-34); MEAN CORPUSCULAR HGB CONC 35 G/DL (32-36); MEAN CORPUSCULAR VOLUME 84 FL (80-99); MEAN PLATELET VOLUME 10.2 FL (7.4-10.4); MONOCYTES # (AUTO) 0.5 X 10^3 (0.0-1.0); MONOCYTES % (AUTO) 7 % (0-12); NEUTROPHILS # (AUTO) 5.3 X 10^3 (1.8-7.8); NEUTROPHILS % (AUTO) 73 % (42-75); PLATELET COUNT 194 10^3/uL (130-400); RED CELL DISTRIBUTION WIDTH 13.3 % (10.0-14.5); WHITE BLOOD COUNT 7.2 10^3/uL (4.3-11.0)
[2018-06-12 14:45] LABS: CALCIUM 9.8 MG/DL (8.5-10.1); CREATININE SERUM 0.97 MG/DL (0.60-1.30); POTASSIUM 4.2 MMOL/L (3.6-5.0)
[2018-06-12 14:53] VITALS: BP 162/84
== END 2018-06-12 14:53 | disposition home or self-care (01) ==
LOC: EDUNIT# 11:31 → ER 11:33
DX: M54.5 Low back pain (principal); R10.9 Unspecified abdominal pain; F03.90 Unspecified dementia, unspecified severity, without behavioral disturbance, psychotic disturbance, mood disturbance, and anxiety; G25.81 Restless legs syndrome; I48.91 Unspecified atrial fibrillation; K21.9 Gastro-esophageal reflux disease without esophagitis; I10 Essential (primary) hypertension; G30.9 Alzheimer's disease, unspecified; F41.9 Anxiety disorder, unspecified; E11.9 Type 2 diabetes mellitus without complications; E03.9 Hypothyroidism, unspecified; G47.00 Insomnia, unspecified; Z79.02 Long term (current) use of antithrombotics/antiplatelets; F31.9 Bipolar disorder, unspecified; Z79.01 Long term (current) use of anticoagulants; Z87.891 Personal history of nicotine dependence; Z90.89 Acquired absence of other organs; Z88.8 Allergy status to other drugs, medicaments and biological substances; Z90.710 Acquired absence of both cervix and uterus; Z87.19 Personal history of other diseases of the digestive system; Z87.448 Personal history of other diseases of urinary system
CPT/HCPCS: 36415; 72131; 74176; 80048; 81000; 85025

== ENCOUNTER 2018-08-06 20:38 | Emergency (ER) | payer MEDICARE, OTHER ==
[~2018-08-06] VITALS: Ht 167.6 cm; Wt 83.9 kg
[~2018-08-06 20:38] MED LIST changes: -AMLO10TA2 PO; +AMLO10TA6 PO; -LOSA100T28 PO; +LOSA100T8 PO; -LOSA50TA36 PO; +LOSA50TA7 PO; +METF-397 PO; -METF500T5 PO; -OXCA300T PO; +OXCA300T18 PO; +TRAM-42 PO
[2018-08-06] MEDS ORDERED: NS IV 500 ML 500 ML IV ONE (20:57)
--- OUTSIDE RECORDS SUMMARY | 2018-08-06 21:08 | XMS REPORT ---
Author Author BEVERLY BALLESTEROS [facility] Address [address] [place] [address] Care Team Providers Care Nurse Practical Name Role Phone BEVERLY BALLESTEROS Unavailable PROBLEMS Type Condition ICD9-CM Code XOF48-WP Code Onset Dates Condition Status SNOMED Code Problem Dementia without behavioral disturbance, unspecified dementia type F03.90 Active 16569336 Problem Depression F32.9 Active 04655473 Problem Bipolar disorder, unspecified F31.9 Active 98054934 Problem Hypokalemia E87.6 Active 67989063 Problem Type 2 diabetes mellitus without complications E11.9 Active 600898689 Problem Nausea and vomiting, unspecified intactability, vomiting of unspecified type R11.2 Active 07465649 Problem Essential (primary) hypertension I10 Active 97536939 Problem 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 Active 45592923 Problem Nausea R11.0 Active 223753503 Problem Subacute dyskinesia due to drug G24.01 Active 527072335 Problem Seasonal allergic rhinitis due to pollen J30.1 Active 61139751 Problem Diarrhea, unspecified type R19.7 Active 98030846 Problem Acute bilateral low back pain with left-sided sciatica M54.42 Active 557909121 Problem Sciatica, left side M54.32 Active 44773469 Problem Gastroesophageal reflux disease, esophagitis presence not specified K21.9 Active 724125109 Problem Constipation, unspecified constipation type K59.00 Active 79952533 Problem Cough R05 Active 40055959 Problem Primary insomnia F51.01 Active 9547413 Problem Poor appetite R63.0 Active 05112279 Problem Atrial fibrillation with RVR I48.91 Active 265658758694784 Problem Tongue pain K14.6 Active 53093144 Problem Restless leg syndrome G25.81 Active 88261088 Problem Neuropathy G62.9 Active 010760863 Problem Dizziness R42 Active 457828511 Problem Seasonal allergies J30.2 Active 364168027 Problem Pain R52 Active 68075184 Problem Hypothyroidism, unspecified type E03.9 Active 48251878 Problem Allergic rhinitis, unspecified J30.9 Active 28718494 Problem Chronic atrial fibrillation I48.2 Active 737197086 ALLERGIES No Information ENCOUNTERS Encounter Location Date Diagnosis [facility] [address] [id number] Jun, Low back pain M54.5 [place] [address] [address] May, [facility] [address] [id number] May, Low back pain M54.5 [place] [address] [address] May, [facility] [address] [id number] Apr, Callus of foot L84 [place] [address] [address] Apr, [facility] [address] [id number] Apr, Acute bilateral low back pain with left-sided sciatica M54.42 [place] [address] [address] Feb, [facility] [address] [id number] Feb, Otalgia of right ear H92.01 [place] [address] [place] [id number] [place] [address] Jan, Cough R05 and Pain of left hip joint M25.552 [place] [address] [id number] Dec, [facility] [address] [id number] Dec, Dementia without behavioral disturbance, unspecified dementia type F03.90 [place] [address] 0130[address]- [address] Nov, [facility] [place] [address] [place] [id number] Oct, Sciatica, left side M54.32 [place] [address] [place] [id number] [place] [id number] Oct, Pain of left hip joint M25.[address] [facility] [address] [id number] Sep, Dementia without behavioral disturbance, unspecified dementia type F03.90 [place] [address] [place] [address]- [address] 14 Jul, 2017 Atrial fibrillation with RVR I48.91 [facility] [place] [address] [place] [id number] 12 Jul, 2017 Tongue pain K14.6 [place] [address] [place] [id number] [place] [id number] Jul, [place] [address] [place] [id number] [place] [id number] Jul, [facility] [place] [address] [place] [id number] Jun, Allergic rhinitis, unspecified J30.9 ; Poor appetite R63.0 and Primary insomnia F51.01 [place] [address] [address] May, Gastroesophageal reflux disease, esophagitis presence not specified K21.9 [place] [address] [place] [id number] [place] [id number] May, [facility] [place] [address] [place] [id number] Apr, Cervicalgia M54.2 and Depression F32.9 [place] [address] [place] [id number] [place] [address]338- [address]996 Apr, [place] [address] [place] [address]84- 2369 Apr, [place] [address] [place] [id number] [place] [address] 16649- 2118 Apr, [facility] [place] [address] [place] [id number] Feb, Dementia without behavioral disturbance, unspecified dementia type F03.90 and Depression F32.9 [place] [address] [address] Dec, [place] [address] [place] [id number] [place] [address]09- 9673 Dec, [place] [address] [place] [id number] [place] [address]1614- 5117 Dec, [facility] [place] [address] [place] [id number] Dec, Upper respiratory tract infection, unspecified type J06.9 and Cellulitis of nose, external J34.0 [place] [id number] [place] [address]- 3801 Nov, 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 [place] [address] [place] [address] 80374- 9339 Oct, [place] [id number] [place] [address]- 49[address] Oct, Seasonal allergies J30.2 ; Dizziness R42 ; Nausea R11.0 and Cough R05 [facility] [address] [id number] Oct, Bipolar disorder, unspecified F31.9 [place] [address] [place] [address]7729- 3402 Oct, [facility] [place] [address] [place] [id number] Aug, Seasonal allergic rhinitis due to pollen J30.1 [place] [address] [place] [address] 35605- 3684 Aug, [facility] [place] [address] [place] [id number] Jul, Depression F32.9 and Shakes R25.1 [facility] [place] [address] [place] [id number] Jun, Depression F32.9 [place] [address] [place] [id number] [place] [address]60- 6341 May, 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 [place] [address] [place] [id number] [place] [address] 18771- 0164 May, [address] [address] March, Easy bruising R23.8 [place] [id number] [place] [address] 8[address]18- 3234 March, 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 [facility] [id number] March, Essential (primary) hypertension I10 ; Chronic atrial fibrillation I48.2 ; Type 2 diabetes mellitus without complications E11.9 ; Bipolar disorder, unspecified F31.9 ; Allergic rhinitis, unspecified J30.9 ; Nausea R11.0 ; Neuropathy G62.9 ; Diarrhea, unspecified type R19.7 ; Hypokalemia E87.6 ; Pain R52 ; Diverticulitis of intestine, part unspecified, without perforation or abscess without bleeding K57.92 ; Subacute dyskinesia due to drug G24.01 ; Seasonal allergies J30.2 ; Hypothyroidism, unspecified type E03.9 ; Dizziness R42 ; Nausea and vomiting, unspecified intactability, vomiting of unspecified type R11.2 ; Gastroesophageal reflux disease, esophagitis presence not specified K21.9 ; Restless leg syndrome G25.81 ; Constipation, unspecified constipation type K59.00 ; 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 ; Cough R05 and Dementia w behavior dist F03.91 [place] [id number] [place] [address]352- 7767 Feb, [place] [id number] [place] [address]10- 7087 Feb, Low back pain M54.5 [place] [id number] [address] Jan, Cough R05 and Diarrhea R19.7 [place] [address] [place] [id number] [place] [address] 31686- 5265 Jan, [facility] [place] [address] [place] [address]23- 7858 Jan, Depression F32.9 and Dementia without behavioral disturbance , unspecified dementia type F03.90 [facility] [place] [address] [place] [id number] [place] [address] 30504- 3397 Jan, [facility] [place] [address] [place] [id number] Dec, Dementia without behavioral disturbance, unspecified dementia type F03.90 and Depression F32.9 [place] [address] [place] [address]1645- 4158 Dec, [place] [address] [place] [id number] [place] [address] 17919- 9352 Dec, [place] [address] [place] [address] 92279- 7869 Dec, [place] [address] [place] [address] 17027- 6474 Oct, [facility] [place] [address] [place] [id number] Oct, Dementia without behavioral disturbance, unspecified dementia type F03.90 and Depression F32.9 [place] [address] [address] Jul, Cough 786.2 and Diarrhea 787.91 [facility] [place] [address] [place] [id number] May, Depressive disorder, not elsewhere classified 311 [place] [address] [address] March, Diarrhea 787.91 ; Depression 311 and Dementia 294.20 [place] [address] [place] [id number] [place] [address] Feb, [facility] [address] [id number] [place] [address] Feb, [facility] [place] [address] [place] [id number] Jan, [facility] [address] [id number] [place] [address]- 9728 Jan, [facility] [address] [id number] [place] [address]- 1813 Dec, [facility] [address] [id number] [place] [address]- 6709 Dec, [facility] [address] [id number] [place] [address]- 8431 Dec, [facility] [place] [address] [place] [id number] Dec, [facility] [address] [id number] [address]- 67[address] Aug, [facility] [address] [id number] [address]- 1777 Aug, [facility] [address] [id number] [address]- 66[address] Aug, [facility] [place] [address] [place] [id number] Aug, [facility] [address] [id number] [address]- [address] Jul, [facility] [address] [id number] [address]- 0926 Jul, [facility] [place] [address] [place] [id number] Jun, [facility] [address] [id number] [address]- 2051 Jun, [facility] [address] [id number], [place] [address]- 2686 Jun, [facility] [place] [facility] [address] [id number] [place] [address] Jun, [facility] [place] [facility] [address] [id number] [place] [address]- 3185 Jun, [facility] [place] [facility] [address] [id number] [place] [address]- 5505 Jun, [facility] [address] [facility] [id number] Jun, [facility] [place] [facility] [address] [id number] [place] [address]- 5884 Jun, [facility] [place] [facility] [address] [id number] [place] [address]- 7109 May, [facility] [place] [facility] [address] [id number] [place] [address]- 1358 May, [facility] [place] [facility] [address] [id number] [place] [address]- 6463 May, [facility] [place] [facility] [address] [id number] [place] [address]- 3860 May, [facility] [place] [facility] [address] [id number] [place] [address]- 5160 May, [facility] [place] [facility] [address] [id number] [place] [address]- 2905 May, [facility] [address] [place] [id number] May, [facility] [place] [facility] [address] [id number] [place] [address] May, [facility] [place] [facility] [address] [id number] [place] [address]- 9070 Apr, [facility] [place] [facility] [address] [id number] [place] [address]- 7038 Apr, [facility] [place] [facility] [address] [id number] [place] [address]- 7840 Apr, [facility] [place] [facility] [address] [id number] [place] [address]- 6276 Apr, [facility] [place] [facility] [address] [id number] [place] [address]- 2048 Apr, [facility] [place] [facility] [address] [id number] [place] [address]- 8307 Apr, [facility] [place] [facility] [address] [id number] [place] [address]- 5236 Apr, [facility] [place] [facility] [address] [id number] [place] [address]- 6447 Apr, [facility] [place] [facility] [address] [id number] [place] [address]- 4456 Apr, [facility] [place] [facility] [address] [id number] [place] [address]- 1678 Apr, [facility] [place] [facility] [address] [id number] [place] [address]- 5261 Apr, [facility] [place] [facility] [address] [id number] [place] [address]- 3091 Apr, [facility] [address] [place] [id number] March, [facility] [place] [facility] [address] [id number] [address]- 9486 March, [facility] [place] [facility] [address] [id number] [address]- 4919 March, [facility] [place] [facility] [address] [id number] [place] [address]- 4538 March, [facility] [place] [facility] [address] [id number] [place] [address]- 5088 March, [facility] [place] [facility] [address] [id number] [place] [address]- 7276 March, [facility] [place] [facility] [address] [id number] [place] [address] Oct, [facility] [place] [address] [facility] [id number] [place] [address]- 0668 Oct, IMMUNIZATIONS No Known Immunizations SOCIAL HISTORY Never Assessed REASON FOR VISIT Long-Term PLAN OF CARE Activity Details Follow Up prn Reason: VITAL SIGNS MEDICATIONS Unknown Medications RESULTS No Results PROCEDURES Procedure Date Ordered Result Body Site [facility] VISIT ESTABLISHED PATIENT May 25, 2018 NURSING [facility] May 25, 2018 INSTRUCTIONS MEDICATIONS ADMINISTERED No Known Medications MEDICAL (GENERAL) HISTORY Type Description Date Medical 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
--- OUTSIDE RECORDS SUMMARY | 2018-08-06 21:08 | XMS REPORT ---
Author Author BEVERLY BALLESTEROS [facility] Address [address] [place] [address] Care Team Providers Care Supervisor Typesetting Name Role Phone BEVERLY BALLESTEROS Unavailable PROBLEMS Type Condition ICD9-CM Code MNL03-MS Code Onset Dates Condition Status SNOMED Code Problem Dementia without behavioral disturbance, unspecified dementia type F03.90 Active 05967749 Problem Depression F32.9 Active 74016624 Problem Bipolar disorder, unspecified F31.9 Active 21574551 Problem Hypokalemia E87.6 Active 76777518 Problem Type 2 diabetes mellitus without complications E11.9 Active 242975479 Problem Nausea and vomiting, unspecified intactability, vomiting of unspecified type R11.2 Active 12033870 Problem Essential (primary) hypertension I10 Active 58287039 Problem 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 Active 30430803 Problem Nausea R11.0 Active 726678397 Problem Subacute dyskinesia due to drug G24.01 Active 319358818 Problem Seasonal allergic rhinitis due to pollen J30.1 Active 11989883 Problem Diarrhea, unspecified type R19.7 Active 15015188 Problem Acute bilateral low back pain with left-sided sciatica M54.42 Active 615873035 Problem Sciatica, left side M54.32 Active 66253370 Problem Gastroesophageal reflux disease, esophagitis presence not specified K21.9 Active 903960047 Problem Constipation, unspecified constipation type K59.00 Active 92551897 Problem Cough R05 Active 56474809 Problem Primary insomnia F51.01 Active 8437495 Problem Poor appetite R63.0 Active 61231939 Problem Atrial fibrillation with RVR I48.91 Active 215178603586965 Problem Tongue pain K14.6 Active 99647166 Problem Restless leg syndrome G25.81 Active 70424252 Problem Neuropathy G62.9 Active 987162453 Problem Dizziness R42 Active 528753090 Problem Seasonal allergies J30.2 Active 380259073 Problem Pain R52 Active 61784591 Problem Hypothyroidism, unspecified type E03.9 Active 16393911 Problem Allergic rhinitis, unspecified J30.9 Active 37209665 Problem Chronic atrial fibrillation I48.2 Active 677840412 ALLERGIES No Information ENCOUNTERS Encounter Location Date Diagnosis [place] [address] [place] [address] [id number] [place] [address] 13 Jul, 2018 Hemorrhoids, unspecified hemorrhoid type K64.9 [place] [address] [address] 13 Jul, 2018 [facility] [address] [place] [id number] Jun, Low back pain M54.5 [place] [address] [address] May, [facility] [address] [place] [id number] May, Low back pain M54.5 [place] [address] 616637- [address] May, [facility] [address] [id number] Apr, Callus of foot L84 [place] [address] [address] Apr, [facility] [address] [id number] Apr, Acute bilateral low back pain with left-sided sciatica M54.42 [place] [address] [id number]- [address] Feb, [facility] [address] [id number] Feb, Otalgia of right ear H92.01 [place] [address] [id number]- [address] Jan, Cough R05 and Pain of left hip joint M25.552 [place] [address] [id number] Dec, [facility] [address] [place] [id number] Dec, Dementia without behavioral disturbance, unspecified dementia type F03.90 [place] [address], [place] [address] Nov, [facility] [address] [place] [id number] Oct, Sciatica, left side M54.32 [place] [address] [place] [address] [id number] [place] [id number] Oct, Pain of left hip joint M25.552 [facility] [address] [place] [id number] Sep, Dementia without behavioral disturbance, unspecified dementia type F03.90 [place] [address], [place] [address] 14 Jul, 2017 Atrial fibrillation with RVR I48.91 [facility] [address] [place] [id number] Jul, Tongue pain K14.6 [place] [id number] [place] [id number] Jul, [place] [address] [place] [address] [id number] [place] [id number] Jul, [facility] [address] [place] [id number] Jun, Allergic rhinitis, unspecified J30.9 ; Poor appetite R63.0 and Primary insomnia F51.01 [place] [address], [place] [address] May, Gastroesophageal reflux disease, esophagitis presence not specified K21.9 [place] [address] [place] [id number] [id number] May, [facility] [address] [place] [id number] Apr, Cervicalgia M54.2 and Depression F32.9 [place] [address] [address] 08 Apr, 2017 [place] [id number] [place] [address] 65[address]- 7[address] Apr, [facility] [address] [place] [address]17- 4564 Apr, [facility] [address] [place] [id number] Feb, Dementia without behavioral disturbance, unspecified dementia type F03.90 and Depression F32.9 [place] [address] [place] [address]94- 2362 Dec, [place] [address] [place] [address] [id number] [place] [address] 77947- 2993 Dec, [place] [address] [address] [id number] [place] [address] 20826- 3014 Dec, [facility] [address] [place] [id number] Dec, Upper respiratory tract infection, unspecified type J06.9 and Cellulitis of nose, external J34.0 [place] [address] [place] [address]40- 2641 Nov, 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 [place] [address] [place] [address] 27180- 2162 Oct, [place] [address] [place] [address] 77598- 4[address] Oct, Seasonal allergies J30.2 ; Dizziness R42 ; Nausea R11.0 and Cough R05 [facility] [address] [place] [id number] Oct, Bipolar disorder, unspecified F31.9 [place] [address] [place] [address]15- 0396 Oct, [facility] [address] [place] [id number] Aug, Seasonal allergic rhinitis due to pollen J30.1 [place] [address] [place] [id number] [address] Aug, [facility] [address] [id number] Jul, Depression F32.9 and Shakes R25.[address] [facility] [address] [id number] Jun, Depression F32.9 [address], [place] [address] May, 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 [address], [place] [address] May, [address] [place] [address]85- 2[address] March, Easy bruising R23.8 [address] [place] [address] 70831- 65[address] March, 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 [facility] [address] [id number] March, Essential (primary) hypertension I10 ; Chronic [...] R05 and Dementia w behavior dist F03.[address] [id number] [address] 14 Feb, 2016 [facility] [address] [place] [address] [id number] [place] [address]91- 9485 12 Feb, 2016 Low back pain M54.5 [facility] [address] [place] [address] 39344- 2096 31 Jan, 2016 Cough R05 and Diarrhea R19.7 [facility] [address] [place] [address] [id number] [place] [address] 15747- 1359 Jan, [facility] [address] [place] [id number] [place] [address] 20005- 4398 Jan, Depression F32.9 and Dementia without behavioral disturbance , unspecified dementia type F03.90 [place] [address] [place] [address] 22094- 5990 Jan, [facility] [address] [place] [id number] Dec, Dementia without behavioral disturbance, unspecified dementia type F03.90 and Depression F32.9 [place] [address] [place] [address] 34662- 0925 Dec, [facility] [address] [place] [address] 79472- 6203 Dec, [place] [address] [place] [address] 51796- 0690 Dec, [facility] [address] [place] [address] 46787- 1801 Oct, [facility] [address] [place] [id number] Oct, Dementia without behavioral disturbance, unspecified dementia type F03.90 and Depression F32.9 [facility] [address], [place] [address] Jul, Cough 786.2 and Diarrhea 787.91 [facility] [address] [place] [id number] May, Depressive disorder, not elsewhere classified 311 [facility] [address], [place] [address] March, Diarrhea 787.91 ; Depression 311 and Dementia 294.20 [facility] [address], [place] [address] 79[address] Feb, [facility] [id number] [place] [address] 59192- 2564 Feb, [facility] [address] [place] [id number] Jan, [facility] [address] [place] [id number] [place] [address] 81391- 6733 Jan, [facility] [address], [place] [address] 42[address] Dec, [facility] [address] [place] [address] 70152- 0485 Dec, [facility] [address], [place] [address] 0[address] Dec, [facility] [address] [place] [id number] Dec, [facility] [address], [place] [address] Aug, [facility] [address], [place] [address] 1186 Aug, [facility] [address] [id number], [place] [address] 95[address] Aug, [facility] [address] [place] [place] [id number] Aug, [facility] [address] [place] [id number], [place] [address] 7636 Jul, [facility] [address] [place] [id number], [place] [address] Jul, [facility] [address] [facility] [id number] Jun, [facility] [address] [id number] [place] [address] 17[address] Jun, [facility] [address] [id number] [place] [address]- 6187 Jun, [facility] [address] [id number] [place] [address]- 7304 Jun, [facility] [address] [id number] [place] [address]- 7013 Jun, [facility] [address] [id number] [place] [address]- 0495 Jun, [facility] [address] [facility] [id number] Jun, [facility] [address] [id number] [place] [address]- 8980 Jun, [facility] [address] [id number] [place] [address]- 6717 May, [facility] [address] [id number] [place] [address]- 4252 May, [facility] [address] [id number] [place] [address]- 6476 May, [facility] [address] [id number] [place] [address]- 0975 May, [facility] [address] [id number] [place] [address]- 3572 May, [facility] [address] [id number] [place] [address]- 8392 May, [facility] [address] [facility] [id number] May, [facility] [address] [id number] [place] [address]- 3752 May, [facility] [address] [id number] [place] [address]- 3603 Apr, [facility] [address] [id number] [place] [address]- 5032 Apr, [facility] [address] [id number] [place] [address]- 0400 Apr, [facility] [address] [id number] [place] [address]- 1978 Apr, [facility] [address] [id number] [place] [address]- 9689 Apr, [facility] [address] [id number] [place] [address]- 4774 Apr, [facility] [address] [id number] [place] [address]- 2998 Apr, [facility] [address] [id number] [place] [address]- 5246 Apr, [facility] [address] [id number] [place] [address]- 7801 Apr, [facility] [address] [id number] [place] [address]- 8115 Apr, [facility] [address] [id number] [place] [address]- 8519 Apr, [facility] [address] [id number] [place] [address]- 4430 Apr, [facility] [address] [place] [id number] March, [facility] [address] [id number] [place] [address]- 0812 March, [facility] [address] [id number] [place] [address]- 5818 March, [facility] [address] [id number] [place] [address]- 1220 March, [facility] [address] [facility] [id number] [place] [address]- 3264 March, [facility] [address] [facility] [id number], [place] [address]- 28[address] March, [facility] [address] [facility] [id number], [place] [address]367 Oct, [facility] [address] [facility] [id number], [place] [address]- 6726 Oct, IMMUNIZATIONS No Known Immunizations SOCIAL HISTORY Never Assessed REASON FOR VISIT ER follow up PLAN OF CARE Activity Details Follow Up prn Reason: VITAL SIGNS MEDICATIONS Medication Instructions Dosage Frequency Start Date End Date Duration Status Levothyroxine Sodium 125 MCG Orally Once a day 1 tablet 24h Active Exelon 6 MG Orally Twice a day 1 Capsule 12h Jun, Active Senna 8.6 MG Orally Once a day 1 tablet as needed 24h March, Active Potassium Chloride ER 20 MEQ Orally 3 times a day 1 tablet 8h Active Biofreeze 4 % Externally every 4 hrs as needed 1 application to affected area as needed Feb, Active Losartan Potassium 100 MG Orally Once a day 1 tablet 24h Active Requip 1 MG Orally 2 times a day 1 tablet for restless leg syndrome 12h March, Active Acetaminophen 325 MG Orally every 4 hours 2 tablets as needed for pain 4h Active Amlodipine Besylate 10 MG Orally Once a day 1 tablet 24h Active Melatonin 3 MG Orally at bedtime 3 tablets at bedtime Active Lactobacillus - Active Xarelto 10 MG Orally Once a day 1 tablet 24h Active Trazodone HCl 50 MG Orally Once a day 1 tablet at bedtime as needed 24h Active Cetirizine HCl 10 mg Orally Once a day 1 tablet 24h Active Zoloft 100 MG Orally Once a day 1 tablet 24h Jun, Active Gabapentin 100 MG Orally Once a day 1 capsule 24h March, Active Diltiazem CD 240 MG Orally Once a day 1 capsule 24h Active Magnesium Oxide 500 MG Orally 3 times a day 1 tablet 8h March, Active Imodium A-D 2 MG Orally 8 time(s) a day 1 tablet as needed for Diarrhea Active Famotidine 20 mg Orally twice a day 1 tablet at bedtime 12h Active Carbidopa-Levodopa 25-100 mg take 1 tablet by Oral route 2 times per day March, Active Gabapentin 100 MG Orally Once a day at HS 2 tablets Active Lasix 40 Orally Once a day 1 tablet 24h Active Oxcarbazepine 300 Orally at bedtime 1 tablet Active RESULTS No Results PROCEDURES Procedure Date Ordered Result Body Site Minor complication (15 mins) Jun 15, 2018 INSTRUCTIONS MEDICATIONS ADMINISTERED No Known Medications MEDICAL (GENERAL) HISTORY Type Description Date Medical 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
--- OUTSIDE RECORDS SUMMARY | 2018-08-06 21:08 | XMS REPORT ---
Author Author BEVERLY BALLESTEROS [facility] Address [address] [place] [address] Care Team Providers Care Artist Model Name Role Phone BEVERLY BALLESTEROS Unavailable PROBLEMS Type Condition ICD9-CM Code SNW32-AL Code Onset Dates Condition Status SNOMED Code Problem Dementia without behavioral disturbance, unspecified dementia type F03.90 Active 26318860 Problem Depression F32.9 Active 95891476 Problem Bipolar disorder, unspecified F31.9 Active 64219734 Problem Hypokalemia E87.6 Active 22699876 Problem Type 2 diabetes mellitus without complications E11.9 Active 593674905 Problem Nausea and vomiting, unspecified intactability, vomiting of unspecified type R11.2 Active 04611773 Problem Essential (primary) hypertension I10 Active 76899092 Problem 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 Active 77283813 Problem Nausea R11.0 Active 517003617 Problem Subacute dyskinesia due to drug G24.01 Active 480181048 Problem Seasonal allergic rhinitis due to pollen J30.1 Active 71609534 Problem Diarrhea, unspecified type R19.7 Active 10959627 Problem Acute bilateral low back pain with left-sided sciatica M54.42 Active 382177000 Problem Sciatica, left side M54.32 Active 16630329 Problem Gastroesophageal reflux disease, esophagitis presence not specified K21.9 Active 393711080 Problem Constipation, unspecified constipation type K59.00 Active 02783093 Problem Cough R05 Active 60323476 Problem Primary insomnia F51.01 Active 6453783 Problem Poor appetite R63.0 Active 40722623 Problem Atrial fibrillation with RVR I48.91 Active 913144752459414 Problem Tongue pain K14.6 Active 82614092 Problem Restless leg syndrome G25.81 Active 49878741 Problem Neuropathy G62.9 Active 761847225 Problem Dizziness R42 Active 868056887 Problem Seasonal allergies J30.2 Active 669188305 Problem Pain R52 Active 73039016 Problem Hypothyroidism, unspecified type E03.9 Active 70150510 Problem Allergic rhinitis, unspecified J30.9 Active 87367597 Problem Chronic atrial fibrillation I48.2 Active 451490251 ALLERGIES No Information ENCOUNTERS Encounter Location Date Diagnosis [facility] [address] [id number] Jun, Low back pain M54.5 [place] [address] [address] May, [facility] [address] [id number] May, Low back pain M54.5 [place] [address] [address]- [address] May, [facility] [address] [id number] Apr, Callus of foot L84 [place] [address] [address] Apr, [facility] [address] [id number] Apr, Acute bilateral low back pain with left-sided sciatica M54.42 [place] [address] [address]- [address] Feb, [facility] [address] [id number] Feb, Otalgia of right ear H92.01 [place] [address] [place] [id number] [place] [address]16- 6[address] Jan, Cough R05 and Pain of left hip joint M25.552 [place] [address] [id number] Dec, [facility] [address] [id number] Dec, Dementia without behavioral disturbance, unspecified dementia type F03.90 [place] [address] 736558- 9958 Nov, [facility] [place] [address] [place] [id number] Oct, Sciatica, left side M54.32 [place] [address] [place] [id number] [place] [id number] Oct, Pain of left hip joint M25.[address] [facility] [address] [id number] Sep, Dementia without behavioral disturbance, unspecified dementia type F03.90 [place] [address] [place] [address] 45306- 2326 14 Jul, 2017 Atrial fibrillation with RVR I48.91 [facility] [place] [address] [place] [id number] 12 Jul, 2017 Tongue pain K14.6 [place] [address] [place] [id number] [place] [address] [id number] Jul, [place] [address] [place] [id number] [place] [address] [id number] Jul, [facility] [place] [address] [place] [id number] Jun, Allergic rhinitis, unspecified J30.9 ; Poor appetite R63.0 and Primary insomnia F51.01 [place] [address] [address] May, Gastroesophageal reflux disease, esophagitis presence not specified K21.9 [place] [address] [place] [id number] [place] [address] [id number] May, [facility] [place] [address] [place] [id number] Apr, Cervicalgia M54.2 and Depression F32.9 [place] [address] [place] [id number] [place] [address] 14817- 1788 Apr, [place] [address] [place] [address] 02112- 0067 Apr, [place] [address] [place] [id number] [place] [address] 41894- 2396 Apr, [facility] [place] [address] [place] [id number] Feb, Dementia without behavioral disturbance, unspecified dementia type F03.90 and Depression F32.9 [place] [address] [address] Dec, [place] [address] [place] [id number] [place] [address] 14799- 4035 Dec, [place] [address] [place] [id number] [place] [address] 52201- 0548 Dec, [facility] [place] [address] [place] [id number] Dec, Upper respiratory tract infection, unspecified type J06.9 and Cellulitis of nose, external J34.0 [place] [id number] [place] [address] 58356- 7259 Nov, 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 [place] [address] [place] [address] 08739- 2468 Oct, [place] [id number] [place] [address] 90723- 7601 Oct, Seasonal allergies J30.2 ; Dizziness R42 ; Nausea R11.0 and Cough R05 [facility] [address] [id number] Oct, Bipolar disorder, unspecified F31.9 [place] [address] [place] [address] 50681- 4080 Oct, [facility] [place] [address] [place] [id number] Aug, Seasonal allergic rhinitis due to pollen J30.1 [place] [address] [place] [address] 64347- 2489 Aug, [facility] [place] [address] [place] [id number] Jul, Depression F32.9 and Shakes R25.1 [facility] [place] [address] [place] [id number] Jun, Depression F32.9 [place] [address] [place] [id number] [place] [address] 02408- 4335 May, 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 [place] [address] [place] [id number] [place] [address] 61088- 6743 May, [address] [address]- [address] March, Easy bruising R23.8 [place] [id number] [place] [address] 26623- 0948 March, 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 [facility] [id number] March, Essential (primary) hypertension I10 ; Chronic [...] R05 and Dementia w behavior dist F03.91 [place] [id number] [place] [address] 76193- 0775 Feb, [place] [id number] [place] [address] 98109- 6394 Feb, Low back pain M54.5 [place] [id number] [address] Jan, Cough R05 and Diarrhea R19.7 [place] [address] [place] [id number] [place] [address] 98707- 7537 Jan, [facility] [address] [place] [address] 98198- 0967 Jan, Depression F32.9 and Dementia without behavioral disturbance , unspecified dementia type F03.90 [facility] [address] [place] [id number] [place] [address] 87748- 3073 Jan, [facility] [place] [address] [place] [id number] Dec, Dementia without behavioral disturbance, unspecified dementia type F03.90 and Depression F32.9 [place] [address] [place] [address] 38990- 1228 Dec, [place] [address] [place] [id number] [place] [address] 57244- 6242 Dec, [place] [address] [place] [address] 62301- 7468 Dec, [place] [address] [place] [address] 00480- 9701 Oct, [facility] [place] [address] [place] [id number] Oct, Dementia without behavioral disturbance, unspecified dementia type F03.90 and Depression F32.9 [place] [address] [address] Jul, Cough 786.2 and Diarrhea 787.91 [facility] [place] [address] [place] [id number] May, Depressive disorder, not elsewhere classified 311 [place] [address] [address] March, Diarrhea 787.91 ; Depression 311 and Dementia 294.20 [place] [address] [place] [id number] [place] [address]- [address] Feb, [facility] [address] [id number] [place] [address]- 4329 Feb, [facility] [place] [address] [place] [id number] Jan, [facility] [address] [id number] [place] [address]- [address]31 Jan, [facility] [address] [id number] [place] [address]- 5305 Dec, [facility] [address] [id number] [place] [address]- 2514 Dec, [facility] [address] [id number] [place] [address]- 5586 Dec, [facility] [place] [address] [place] [id number] Dec, [facility] [address] [id number] [address]- 1394 Aug, [facility] [address] [id number] [place] [address]- 9092 Aug, [facility] [address] [id number] [place] [address]- 2262 Aug, [facility] [place] [address] [place] [id number] Aug, [facility] [address] [id number] [place] [address]- 0665 Jul, [facility] [address] [id number] [place] [address]- [address] Jul, [facility] [place] [address] [place] [id number] Jun, [facility] [address] [id number] [place] [address]- 4165 Jun, [facility] [address] [id number] [place] [address]- 0216 Jun, [facility] [place] [facility] [address] [id number] [place]- [address] Jun, [facility] [place] [facility] [address] [id number] [place] [address]- 6861 Jun, [facility] [place] [facility] [address] [id number] [place] [address]- 8365 Jun, [facility] [address] [facility] [place] [id number] Jun, [facility] [place] [facility] [address] [id number] [place] [address]- 4860 Jun, [facility] [place] [facility] [address] [id number] [place] [address]- 1079 May, [facility] [place] [facility] [address] [id number] [place] [address]- 3549 May, [facility] [place] [facility] [address] [id number] [place] [address]- 8743 May, [facility] [place] [facility] [address] [id number] [place] [address]- 0153 May, [facility] [place] [facility] [address] [id number] [place] [address]- 1690 May, [facility] [place] [facility] [address] [id number] [place] [address]- 1402 May, [facility] [address] [place] [id number] May, [facility] [place] [facility] [address] [id number] [place] [address] May, [facility] [place] [facility] [address] [id number] [place] [address]- 9738 Apr, [facility] [place] [facility] [address] [id number] [place] [address]- 0333 Apr, [facility] [place] [facility] [address] [id number] [place] [address]- 9091 Apr, [facility] [place] [facility] [address] [id number] [place] [address]- 0142 Apr, [facility] [place] [facility] [address] [id number] [place] [address]- 6342 Apr, [facility] [place] [facility] [address] [id number] [place] [address]- 7916 Apr, [facility] [place] [facility] [address] [id number] [place] [address]- 2295 Apr, [facility] [place] [facility] [address] [id number] [place] [address]- 0885 Apr, [facility] [place] [facility] [address] [id number] [place] [address]- 9306 Apr, [facility] [place] [facility] [address] [id number] [place] [address]- 6960 Apr, [facility] [place] [facility] [address] [id number] [place] [address]- 1070 Apr, [facility] [place] [facility] [address] [id number] [place] [address]- 2804 Apr, [facility] [address] [place] [id number] March, [facility] [place] [facility] [address] [id number] [place] [address]- 5070 March, [facility] [place] [facility] [address] [id number] [place] [address]- 8309 March, [facility] [place] [facility] [address] [id number] [place] [address]- 2143 March, [facility] [place] [facility] [address] [id number] [place] [address]- 5232 March, [facility] [place] [facility] [address] [id number] [place] [address]- 1158 March, [facility] [place] [facility] [address] [id number] [place] [address]- 0637 Oct, [facility] [address] [facility] [id number] [place] [address] Oct, IMMUNIZATIONS No Known Immunizations SOCIAL HISTORY Never Assessed REASON FOR VISIT Requests return call PLAN OF CARE VITAL SIGNS MEDICATIONS Unknown Medications RESULTS No Results PROCEDURES No Known procedures INSTRUCTIONS MEDICATIONS ADMINISTERED No Known Medications MEDICAL (GENERAL) HISTORY Type Description Date Medical 

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
--- OUTSIDE RECORDS SUMMARY | 2018-08-06 21:09 | XMS REPORT ---
Author Author BEVERLY BALLESTEROS [facility] Address [address] [place] [address] Care Team Providers Care Store Operations Associate Name Role Phone BEVERLY BALLESTEROS Unavailable PROBLEMS Type Condition ICD9-CM Code ZPC40-AV Code Onset Dates Condition Status SNOMED Code Problem Dementia without behavioral disturbance, unspecified dementia type F03.90 Active 29736042 Problem Depression F32.9 Active 32496766 Problem Bipolar disorder, unspecified F31.9 Active 10990552 Problem Hypokalemia E87.6 Active 98962060 Problem Type 2 diabetes mellitus without complications E11.9 Active 028324435 Problem Nausea and vomiting, unspecified intactability, vomiting of unspecified type R11.2 Active 12533769 Problem Essential (primary) hypertension I10 Active 17723675 Problem 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 Active 23268144 Problem Nausea R11.0 Active 434549224 Problem Subacute dyskinesia due to drug G24.01 Active 819265215 Problem Seasonal allergic rhinitis due to pollen J30.1 Active 45261759 Problem Diarrhea, unspecified type R19.7 Active 63613251 Problem Acute bilateral low back pain with left-sided sciatica M54.42 Active 129217603 Problem Sciatica, left side M54.32 Active 49235891 Problem Gastroesophageal reflux disease, esophagitis presence not specified K21.9 Active 387724219 Problem Constipation, unspecified constipation type K59.00 Active 94000820 Problem Cough R05 Active 75367860 Problem Primary insomnia F51.01 Active 2693670 Problem Poor appetite R63.0 Active 57784267 Problem Atrial fibrillation with RVR I48.91 Active 958146109316835 Problem Tongue pain K14.6 Active 12905831 Problem Restless leg syndrome G25.81 Active 39517730 Problem Neuropathy G62.9 Active 423607638 Problem Dizziness R42 Active 592589241 Problem Seasonal allergies J30.2 Active 002763840 Problem Pain R52 Active 00674693 Problem Hypothyroidism, unspecified type E03.9 Active 84995965 Problem Allergic rhinitis, unspecified J30.9 Active 40213164 Problem Chronic atrial fibrillation I48.2 Active 307429698 ALLERGIES No Information ENCOUNTERS Encounter Location Date Diagnosis [facility] [address] [id number] Jun, Low back pain M54.5 [place] [address] [address] May, [facility] [address] [id number] May, Low back pain M54.5 [place] [address] [address] May, [facility] [address] [id number] Apr, Callus of foot L84 [place] [address] [address] Apr, [facility] [address] [id number] Apr, Acute bilateral low back pain with left-sided sciatica M54.42 [place] [address] [address] Feb, [facility] [address] [id number] Feb, Otalgia of right ear H92.01 [place] [address] [place] [id number] [place] [address] Jan, Cough R05 and Pain of left hip joint M25.552 [place] [address] [id number] Dec, [facility] [address] [id number] Dec, Dementia without behavioral disturbance, unspecified dementia type F03.90 [place] [address] 397767- [address] Nov, [facility] [address] [place] [id number] Oct, Sciatica, left side M54.32 [place] [address] [place] [id number] [place] [id number] Oct, Pain of left hip joint M25.[address] [facility] [address] [id number] Sep, Dementia without behavioral disturbance, unspecified dementia type F03.90 [place] [address] [place] [address]- [address] 14 Jul, 2017 Atrial fibrillation with RVR I48.91 [facility] [address] [place] [id number] 12 Jul, 2017 Tongue pain K14.6 [place] [address] [place] [id number] [place] [id number] Jul, [place] [address] [place] [id number] [place] [id number] Jul, [facility] [address] [place] [id number] Jun, Allergic rhinitis, unspecified J30.9 ; Poor appetite R63.0 and Primary insomnia F51.01 [place] [address] [address] May, Gastroesophageal reflux disease, esophagitis presence not specified K21.9 [place] [address] [place] [id number] [place] [address] [id number] May, [facility] [address] [place] [place] [id number] Apr, Cervicalgia M54.2 and Depression F32.9 [place] [address] [place] [id number] [place] [address]- [address]277 Apr, [place] [address] [place] [address]- 1212 Apr, [place] [address] [place] [id number] [place] [address] 07082- 9742 Apr, [facility] [address] [place] [place] [id number] Feb, Dementia without behavioral disturbance, unspecified dementia type F03.90 and Depression F32.9 [place] [address] [address] Dec, [place] [address] [place] [id number] [place] [address]72- 1724 Dec, [place] [address] [place] [id number] [place] [address]46- 4430 Dec, [facility] [address] [place] [place] [id number] Dec, Upper respiratory tract infection, unspecified type J06.9 and Cellulitis of nose, external J34.0 [place] [id number] [place] [address]992- 1301 Nov, 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 [place] [address] [place] [address] 9[address]65- 7958 Oct, [place] [id number] [place] [address] 09284- 5591 Oct, Seasonal allergies J30.2 ; Dizziness R42 ; Nausea R11.0 and Cough R05 [facility] [address] [id number] Oct, Bipolar disorder, unspecified F31.9 [place] [address] [place] [address] 76027- 7217 Oct, [facility] [address] [place] [id number] Aug, Seasonal allergic rhinitis due to pollen J30.1 [place] [address] [place] [address]- [address] Aug, [facility] [address] [place] [place] [id number] Jul, Depression F32.9 and Shakes R25.1 [facility] [address] [place] [id number] Jun, Depression F32.9 [place] [address] [place] [id number] [place] [address] 84725- 6620 May, 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 [place] [address] [place] [id number] [place] [address]- 9801 May, [address] [address] March, Easy bruising R23.8 [place] [id number] [place] [address]- [address] March, 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 [id number] March, Essential (primary) hypertension I10 ; Chronic [...] R05 and Dementia w behavior dist F03.91 [place] [id number] [place] [address]386- 2069 Feb, [place] [id number] [place] [address] 85639- 5[address] Feb, Low back pain M54.5 [place] [id number] [address] Jan, Cough R05 and Diarrhea R19.7 [place] [address] [place] [id number] [place] [address] 95273- 1416 Jan, [facility] [address] [place] [address] 70192- 6338 Jan, Depression F32.9 and Dementia without behavioral disturbance , unspecified dementia type F03.90 [facility] [address] [place] [id number] [place] [address] 44605- 6472 Jan, [facility] [address] [place] [place] [id number] Dec, Dementia without behavioral disturbance, unspecified dementia type F03.90 and Depression F32.9 [place] [address] [place] [address] 22040- 7319 Dec, [place] [address] [place] [id number] [place] [address] 66079- 8590 Dec, [place] [address] [place] [address] 06906- 8934 Dec, [place] [address] [place] [address] 44219- 9019 Oct, [facility] [address] [place] [id number] Oct, Dementia without behavioral disturbance, unspecified dementia type F03.90 and Depression F32.9 [place] [address] [address] Jul, Cough 786.2 and Diarrhea 787.91 [facility] [address] [place] [place] [id number] May, Depressive disorder, not elsewhere classified [address] [place] [address] [address] March, Diarrhea 787.91 ; Depression 311 and Dementia 294.20 [place] [address] [place] [id number] [place] [address] Feb, [facility] [address] [id number] [place] [address] Feb, [facility] [address] [place] [id number] Jan, [facility] [address] [id number] [place] [address]- 6[address] Jan, [facility] [address] [id number] [place] [address]- 4663 Dec, [facility] [address] [id number] [place] [address]- 6598 Dec, [facility] [address] [id number] [place] [address]- 8724 Dec, [facility] [address] [place] [id number] Dec, [facility] [address] [id number], [place] [address] Aug, [facility] [address] [id number], [place] [address]- 62[address] Aug, [facility] [address] [id number], [place] [address]- [address] Aug, [facility] [address] [place] [id number] Aug, [facility] [address] [id number], [place] [address]- 9647 Jul, [facility] [address] [id number], [place] [address]- 7[address] Jul, [facility] [address] [place] [id number] Jun, [facility] [address] [id number], [place] [address]- 8[address] Jun, [facility] [address] [id number], [place] [address]- 3676 Jun, [facility] [place] [facility] [address] [id number] [place] Jun, [facility] [place] [facility] [address] [id number] [place] [address]- 8096 Jun, [facility] [place] [facility] [address] [id number] [place] [address]- 9283 Jun, [facility] [address] [facility] [place] [id number] Jun, [facility] [place] [facility] [address] [id number] [place] [address]- 4143 Jun, [facility] [place] [facility] [address] [id number] [place] [address]- 5135 May, [facility] [place] [facility] [address] [id number] [place] [address]- 9474 May, [facility] [place] [facility] [address] [id number] [place] [address]- 6881 May, [facility] [place] [facility] [address] [id number] [place] [address]- 2620 May, [facility] [place] [facility] [address] [id number] [place] [address]- 8790 May, [facility] [place] [facility] [address] [id number] [place] [address]- 5987 May, [facility] [address] [place] [id number] May, [facility] [place] [facility] [address] [id number] [place] [address] May, [facility] [place] [facility] [address] [id number] [place] [address]- 5763 Apr, [facility] [place] [facility] [address] [id number] [place] [address]- 2540 Apr, [facility] [place] [facility] [address] [id number] [place] [address]- 0871 Apr, [facility] [place] [facility] [address] [id number] [place] [address]- 9936 Apr, [facility] [place] [facility] [address] [id number] [place] [address]- 0971 Apr, [facility] [place] [facility] [address] [id number] [place] [address]- 3313 Apr, [facility] [place] [facility] [address] [id number] [place] [address]- 8279 Apr, [facility] [place] [facility] [address] [id number] [place] [address]- 3858 Apr, [facility] [place] [facility] [address] [id number] [place] [address]- 7116 Apr, [facility] [place] [facility] [address] [id number] [place] [address]- 7339 Apr, [facility] [place] [facility] [address] [id number] [place] [address]- 0574 Apr, [facility] [place] [facility] [address] [id number] [place] [address]- 3150 Apr, [facility] [address] [place] [id number] March, [facility] [place] [facility] [address] [id number], [place] [address]- 12[address] March, [facility] [place] [facility] [address] [id number], [place] [address]- 2964 March, [facility] [place] [facility] [address] [id number] [place] [address]- 9751 March, [facility] [place] [facility] [address] [id number] [place] [address]- 9618 March, [facility] [place] [facility] [address] [id number] [place] [address]- 4303 March, [facility] [place] [facility] [address] [id number] [place] [id number] Oct, [facility] [address] [facility] [id number], [place] [address]- [address] Oct, IMMUNIZATIONS No Known Immunizations SOCIAL HISTORY Never Assessed REASON FOR VISIT routine visit PLAN OF CARE Activity Details Follow Up prn Reason: VITAL SIGNS MEDICATIONS Medication Instructions Dosage Frequency Start Date End Date Duration Status Zoloft 100 MG Orally Once a day 1 tablet 24h Jun, Active Biofreeze 4 % Externally every 4 hrs as needed 1 application to affected area as needed Feb, Active Carbidopa-Levodopa 25-100 mg take 1 tablet by Oral route 2 times per day March, Active Lasix 40 Orally Once a day 1 tablet 24h Active Exelon 6 MG Orally Twice a day 1 Capsule 12h Jun, Active Trazodone HCl 50 MG Orally Once a day 1 tablet at bedtime as needed 24h Active Melatonin 3 MG Orally at bedtime 3 tablets at bedtime Active Magnesium Oxide 500 MG Orally 3 times a day 1 tablet 8h March, Active Diltiazem CD 240 MG Orally Once a day 1 capsule 24h Active Cetirizine HCl 10 mg Orally Once a day 1 tablet 24h Active Senna 8.6 MG Orally Once a day 1 tablet as needed 24h March, Active Gabapentin 100 MG Orally Once a day at HS 2 tablets Active Synthroid 125 TAKE ONE TABLET BY MOUTH DAILY 30 Active Xarelto 10 MG Orally Once a day 1 tablet 24h Active Vision Formula/Lutein - Active Oxcarbazepine 300 Orally at bedtime 1 tablet Active Levothyroxine Sodium 125 MCG Orally Once a day 1 tablet 24h Active Flonase 50 MCG/ACT Nasally Once a day 1 spray in each nostril 24h Feb, 30 day(s) Active Losartan Potassium 100 TAKE ONE TABLET BY MOUTH DAILY 30 Active Lactobacillus - Active Amlodipine Besylate 10 MG Orally Once a day 1 tablet 24h Active Losartan Potassium 100 MG Orally Once a day 1 tablet 24h Active Gabapentin 100 MG Orally Once a day 1 capsule 24h March, Active Famotidine 20 mg Orally twice a day 1 tablet at bedtime 12h Active Imodium A-D 2 MG Orally 8 time(s) a day 1 tablet as needed for Diarrhea Active Acetaminophen 325 MG Orally every 4 hours 2 tablets as needed for pain 4h Active Requip 1 MG Orally 2 times a day 1 tablet for restless leg syndrome 12h 22 Mar, 2014 Active Potassium Chloride ER 20 MEQ Orally 3 times a day 1 tablet 8h Active RESULTS No Results PROCEDURES Procedure Date Ordered Result Body Site Minor complication (15 mins) April 20, 2018 INSTRUCTIONS MEDICATIONS ADMINISTERED No Known Medications MEDICAL (GENERAL) HISTORY Type Description Date Medical 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
--- OUTSIDE RECORDS SUMMARY | 2018-08-06 21:09 | XMS REPORT ---
Author Author BEVERLY BALLESTEROS [facility] Address [address] [place] [address] Care Team Providers Care Chassis Engineer Name Role Phone BEVERLY BALLESTEROS Unavailable PROBLEMS Type Condition ICD9-CM Code TOB02-ST Code Onset Dates Condition Status SNOMED Code Problem Dementia without behavioral disturbance, unspecified dementia type F03.90 Active 12469269 Problem Depression F32.9 Active 32329975 Problem Bipolar disorder, unspecified F31.9 Active 74498775 Problem Hypokalemia E87.6 Active 77779097 Problem Type 2 diabetes mellitus without complications E11.9 Active 304921139 Problem Nausea and vomiting, unspecified intactability, vomiting of unspecified type R11.2 Active 05115708 Problem Essential (primary) hypertension I10 Active 28068904 Problem 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 Active 19010739 Problem Nausea R11.0 Active 823070065 Problem Subacute dyskinesia due to drug G24.01 Active 726850021 Problem Seasonal allergic rhinitis due to pollen J30.1 Active 82877057 Problem Diarrhea, unspecified type R19.7 Active 30313637 Problem Acute bilateral low back pain with left-sided sciatica M54.42 Active 154510597 Problem Sciatica, left side M54.32 Active 80455397 Problem Gastroesophageal reflux disease, esophagitis presence not specified K21.9 Active 326191186 Problem Constipation, unspecified constipation type K59.00 Active 98058707 Problem Cough R05 Active 68157725 Problem Primary insomnia F51.01 Active 5170317 Problem Poor appetite R63.0 Active 69003269 Problem Atrial fibrillation with RVR I48.91 Active 491191949908529 Problem Tongue pain K14.6 Active 55287254 Problem Restless leg syndrome G25.81 Active 38298930 Problem Neuropathy G62.9 Active 711289562 Problem Dizziness R42 Active 890679573 Problem Seasonal allergies J30.2 Active 641109769 Problem Pain R52 Active 09593592 Problem Hypothyroidism, unspecified type E03.9 Active 97501449 Problem Allergic rhinitis, unspecified J30.9 Active 33425671 Problem Chronic atrial fibrillation I48.2 Active 837493786 ALLERGIES Substance Reaction Event Type Date Status Valium Unknown Drug Allergy Apr, Active Haldol Unknown Drug Allergy Apr, Active Ativan Unknown Drug Allergy Apr, Active ENCOUNTERS Encounter Location Date Diagnosis [facility] [address] [place] [phone] Jun, Low back pain M54.5 [place] [id number] [place] [address] 89298- 3926 May, [facility] [address] [place] [id number] May, Low back pain M54.5 [place] [id number] [place] [address] 04358- 1136 May, [facility] [address] [id number] Apr, Callus of foot L84 [place] [id number] [place] [address] 07119- 3161 Apr, [facility] [address] [id number] Apr, Acute bilateral low back pain with left-sided sciatica M54.42 [place] [id number] [place] [address] 82342- 8136 Feb, [facility] [address] [id number] Feb, Otalgia of right ear H92.01 [place] [id number] [place] [address] 98647- 7052 Jan, Cough R05 and Pain of left hip joint M25.552 [facility] [id number] [place] [id number] Dec, [facility] [address] [place] [id number] Dec, Dementia without behavioral disturbance, unspecified dementia type F03.90 [facility] [address] [address] Nov, [facility] [address] [id number] Oct, Sciatica, left side M54.32 [facility] [id number] [id number] Oct, Pain of left hip joint M25.[address] [facility] [address] [id number] Sep, Dementia without behavioral disturbance, unspecified dementia type F03.90 [place] [id number] [place] [address] 83962- 0996 14 Jul, 2017 Atrial fibrillation with RVR I48.[address] [facility] [address] [id number] Jul, Tongue pain K14.6 [place] [id number] [place] [id number] Jul, [facility] [id number] [place] [address] [id number] Jul, [facility] [address] [place] [id number] Jun, Allergic rhinitis, unspecified J30.9 ; Poor appetite R63.0 and Primary insomnia F51.01 [place] [address] [address] May, Gastroesophageal reflux disease, esophagitis presence not specified K21.9 [place] [id number] [place] [address] [id number] May, [facility] [address] [place] [id number] Apr, Cervicalgia M54.2 and Depression F32.9 [place] [address] [place] [address] 06499- 5734 Apr, [facility] [id number] [place] [address] 03982- 2052 Apr, [place] [address] [place] [address] 13531- 0511 Apr, [facility] [address] [id number] Feb, Dementia without behavioral disturbance, unspecified dementia type F03.90 and Depression F32.[address] [address]- 4432 Dec, [place] [id number] [place] [address] 49084- 5797 Dec, [address] [address]397- 6992 Dec, [facility] [address] [id number] Dec, Upper respiratory tract infection, unspecified type J06.9 and Cellulitis of nose, external J34.0 [place] [id number] [place] [address] 85564- 5412 Nov, 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 [place] [id number] [place] [address] 58412- 6406 Oct, [place] [id number] [place] [address] 75770- 2603 Oct, Seasonal allergies J30.2 ; Dizziness R42 ; Nausea R11.0 and Cough R05 [facility] [address] [id number] Oct, Bipolar disorder, unspecified F31.9 [place] [id number] [place] [address] 51879- 9712 Oct, [facility] [address] [id number] Aug, Seasonal allergic rhinitis due to pollen J30.1 [place] [id number] [place] [address] 32122- 6646 Aug, [facility] [address] [id number] Jul, Depression F32.9 [facility].1 [facility] [address] [id number] Jun, Depression F32.9 [place] [id number] [address] 6[address] May, 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 [place] [id number] [place] [address] 04293- 5470 May, [place] [id number] [place] [address] 92265- 8876 March, Easy bruising R23.8 [address] [place] [address] 27930- 1896 March, 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 [id number] March, Essential (primary) hypertension I10 ; Chronic [...] R05 and Dementia w behavior dist F03.91 [address] [address] Feb, [place] [id number] [place] [address] 70115- 1987 Feb, Low back pain M54.5 [place] [id number] [place] [address] 63028- 5346 Jan, Cough R05 and Diarrhea R19.7 [facility] [id number] [place] [address] 07332- 3203 Jan, [facility] [id number] [place] [address] 65045- 6651 Jan, Depression F32.9 and Dementia without behavioral disturbance , unspecified dementia type F03.90 [place] [id number] [place] [address] 14809- 9677 Jan, [facility] [address] [id number] Dec, Dementia without behavioral disturbance, unspecified dementia type F03.90 and Depression F32.9 [place] [id number] [place] [address] 62176- 2719 Dec, [facility] [id number] [place] [address] 22335- 1424 Dec, [place] [id number] [place] [address] 54434- 7953 Dec, [place] [id number] [place] [address] 96064- 6776 Oct, [facility] [address] [id number] Oct, Dementia without behavioral disturbance, unspecified dementia type F03.90 and Depression F32.9 [place] [id number] [place] [address] 89598- 8059 Jul, Cough 786.2 and Diarrhea 787.[address] [facility] [address] [id number] May, Depressive disorder, not elsewhere classified [address] [place] [id number] [place] [address] 88607- 2754 March, Diarrhea 787.91 ; Depression 311 and Dementia 294.20 [facility] [id number] [address] 4150 Feb, [facility] [address] [facility] [id number], [place] [address] 5768 Feb, [facility] [address] [place] [id number] Jan, [facility] [address] [facility] [id number], [place] [address]1 Jan, [facility] [address], [place] [address]- 0714 Dec, [facility] [address] [facility] [id number] [place] [address] 82109- 9089 Dec, [facility] [address] [place] [address] 70936- 7818 Dec, [facility] [address] [place] [id number] Dec, [facility] [address], [place] [address] 7301 Aug, [facility] [address], [place] [address]- 0406 Aug, [facility] [address], [place] [address]- 5159 Aug, [facility] [address] [place] [id number] Aug, [facility] [id number] [address]- 7139 Jul, [facility] [id number], [place] [address]- 2758 Jul, [facility] [address] [place] [place] [id number] Jun, [facility] [address], [place] [address]- 7309 Jun, [facility] [address] [id number] [place] [address]- 0059 Jun, [facility] [address] [id number] [place] [address]- 9579 Jun, [facility] [address] [id number] [place] [address]- 2293 Jun, [facility] [address] [id number] [place] [address]- 7467 Jun, [facility] [address] [place] [id number] Jun, [facility] [address] [id number] [place] [address]- 2112 Jun, [facility] [address] [id number] [place] [address]- 0573 May, [facility] [address] [id number] [place] [address]- 7915 May, [facility] [address] [id number] [place] [address]- 6855 May, [facility] [address] [id number] [place] [address]- 8092 May, [facility] [address] [id number], [place] [address]- 3493 May, [facility] [address] [id number], [place] [address]- 5793 May, [facility] [address] [place] [id number] May, [facility] [place] [facility] [address] [id number] [place] [address]- 3754 May, [facility] [address] [id number], [place] [address]- 8130 Apr, [facility] [place] [facility] [address] [id number], [place] [address]- 1749 Apr, [facility] [address] [id number] [place] [address]- 8312 Apr, [facility] [place] [facility] [address] [id number] [place] [address]- 1742 Apr, [facility] [place] [facility] [address] [id number] [place] [address]- 2524 Apr, [facility] [place] [facility] [address] [id number] [place] [address]- 4478 Apr, [facility] [place] [facility] [address] [id number] [place] [address]- 6506 Apr, [facility] [place] [facility] [address] [id number] [place] [address]- 7792 Apr, [facility] [address] [id number] [place] [address]- 3417 Apr, [facility] [place] [facility] [address] [id number] [place] [address]- 9621 Apr, [facility] [address] [id number] [place] [address]- 6548 Apr, [facility] [place] [facility] [address] [id number] [place] [address]- 8171 Apr, [facility] [address] [place] [id number] March, [facility] [place] [facility] [address] [id number], [place] [address]- 6152 March, [facility] [place] [facility] [address] [id number] [place] [address]- 2067 March, [facility] [place] [facility] [address] [id number] [place] [address]- 3993 March, [facility] [place] [facility] [address] [id number] [place] [address]- 3608 March, [facility] [place] [facility] [address] [id number] [place] [address]- 4065 March, [facility] [address] [facility] [id number] [place] [address]- 2837 Oct, [facility] [address] [facility] [id number] [place] [address]- 4958 Oct, IMMUNIZATIONS No Known Immunizations SOCIAL HISTORY Never Assessed REASON FOR VISIT long-term PLAN OF CARE Activity Details Follow Up prn Reason: Future/Pending Procedure SHAVE SKIN LESION 0.6-1 cm VITAL SIGNS MEDICATIONS Medication Instructions Dosage Frequency Start Date End Date Duration Status Zoloft 100 MG Orally Once a day 1 tablet 24h Jun, Active Levothyroxine Sodium 125 MCG Orally Once a day 1 tablet 24h Active Cetirizine HCl 10 mg Orally Once a day 1 tablet 24h Active Requip 1 MG Orally 2 times a day 1 tablet for restless leg syndrome 12h March, Active Exelon 6 MG Orally Twice a day 1 Capsule 12h Jun, Active Potassium Chloride ER 20 MEQ Orally 3 times a day 1 tablet 8h Active Oxcarbazepine 300 Orally at bedtime 1 tablet Active Carbidopa-Levodopa 25-100 mg take 1 tablet by Oral route 2 times per day March, Active Imodium A-D 2 MG Orally 8 time(s) a day 1 tablet as needed for Diarrhea Active Lasix 40 Orally Once a day 1 tablet 24h Active Acetaminophen 325 MG Orally every 4 hours 2 tablets as needed for pain 4h Active Biofreeze 4 % Externally every 4 hrs as needed 1 application to affected area as needed Feb, Active Melatonin 3 MG Orally at bedtime 3 tablets at bedtime Active Diltiazem CD 240 MG Orally Once a day 1 capsule 24h Active Trazodone HCl 50 MG Orally Once a day 1 tablet at bedtime as needed 24h Active Gabapentin 100 MG Orally Once a day at HS 2 tablets Active Xarelto 10 MG Orally Once a day 1 tablet 24h Active Magnesium Oxide 500 MG Orally 3 times a day 1 tablet 8h March, Active Senna 8.6 MG Orally Once a day 1 tablet as needed 24h March, Active Lactobacillus - Active Losartan Potassium 100 MG Orally Once a day 1 tablet 24h Active Gabapentin 100 MG Orally Once a day 1 capsule 24h March, Active Amlodipine Besylate 10 MG Orally Once a day 1 tablet 24h Active Famotidine 20 mg Orally twice a day 1 tablet at bedtime 12h Active RESULTS No Results PROCEDURES Procedure Date Ordered Result Body Site SHAVE F,E,E,N,L,M 0.6-1 CM May 11, 2018 Minor complication (15 mins) May 11, 2018 INSTRUCTIONS MEDICATIONS ADMINISTERED No Known Medications MEDICAL (GENERAL) HISTORY Type Description Date Medical 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
--- OUTSIDE RECORDS SUMMARY | 2018-08-06 21:09 | XMS REPORT ---
Author Author BEVERLY BALLESTEROS [facility] Address [address] [place] [address] Care Team Providers Care Customer Engagement Specialist Name Role Phone BEVERLY BALLESTEROS Unavailable PROBLEMS Type Condition ICD9-CM Code [id number] Code Onset Dates Condition Status SNOMED Code Problem Dementia without behavioral disturbance, unspecified dementia type F03.90 Active 50982602 Problem Depression F32.9 Active 04131256 Problem Bipolar disorder, unspecified F31.9 Active 04788721 Problem Hypokalemia E87.6 Active 99625044 Problem Type 2 diabetes mellitus without complications E11.9 Active 039757452 Problem Nausea and vomiting, unspecified intactability, vomiting of unspecified type R11.2 Active 87122968 Problem Essential (primary) hypertension I10 Active 92229993 Problem 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 Active 71392352 Problem Nausea R11.0 Active 660036270 Problem Subacute dyskinesia due to drug G24.01 Active 330881645 Problem Seasonal allergic rhinitis due to pollen J30.1 Active 83284883 Problem Diarrhea, unspecified type R19.7 Active 98381447 Problem Acute bilateral low back pain with left-sided sciatica M54.42 Active 254073941 Problem Sciatica, left side M54.32 Active 45231126 Problem Gastroesophageal reflux disease, esophagitis presence not specified K21.9 Active 114795330 Problem Constipation, unspecified constipation type K59.00 Active 81660546 Problem Cough R05 Active 90149177 Problem Primary insomnia F51.01 Active 4237430 Problem Poor appetite R63.0 Active 89751324 Problem Atrial fibrillation with RVR I48.91 Active 578378991644538 Problem Tongue pain K14.6 Active 31737605 Problem Restless leg syndrome G25.81 Active 42440889 Problem Neuropathy G62.9 Active 404864659 Problem Dizziness R42 Active 378097824 Problem Seasonal allergies J30.2 Active 360666593 Problem Pain R52 Active 81845550 Problem Hypothyroidism, unspecified type E03.9 Active 54250255 Problem Allergic rhinitis, unspecified J30.9 Active 94964875 Problem Chronic atrial fibrillation I48.2 Active 136977909 ALLERGIES No Information ENCOUNTERS Encounter Location Date Diagnosis [facility] [address] [id number] Jun, Low back pain M54.5 [place] [address] [address] May, [facility] [address] [id number] May, Low back pain M54.5 [place] [address] [address]- [address] May, [facility] [address] [id number] Apr, Callus of foot L84 [place] [address] [address] Apr, [facility] [address] [id number] Apr, Acute bilateral low back pain with left-sided sciatica M54.42 [place] [address] [address]- [address] Feb, [facility] [address] [id number] Feb, Otalgia of right ear H92.01 [place] [address] [address] [place] [id number] [place] [address]- [address] Jan, Cough R05 and Pain of left hip joint M25.552 [place] [address] [id number] Dec, [facility] [address] [id number] Dec, Dementia without behavioral disturbance, unspecified dementia type F03.90 [place] [address] [address]- [address]29 Nov, [facility] [place] [address] [place] [id number] Oct, Sciatica, left side M54.32 [place] [address] [address] [place] [id number] [place] [address] [id number] Oct, Pain of left hip joint M25.[address] [facility] [address] [id number] Sep, Dementia without behavioral disturbance, unspecified dementia type F03.90 [place] [address] [place] [address] 18391- 3536 14 Jul, 2017 Atrial fibrillation with RVR I48.91 [facility] [place] [address] [place] [id number] 12 Jul, 2017 Tongue pain K14.6 [place] [address] [address] [place] [id number] [place] [address] [id number] Jul, [place] [address] [address] [place] [id number] [place] [id number] Jul, [facility] [place] [address] [place] [id number] Jun, Allergic rhinitis, unspecified J30.9 ; Poor appetite R63.0 and Primary insomnia F51.01 [place] [address] [address] May, Gastroesophageal reflux disease, esophagitis presence not specified K21.9 [place] [address] [address] [place] [id number] [place] [address] [id number] May, [facility] [place] [address] [place] [id number] Apr, Cervicalgia M54.2 and Depression F32.9 [place] [address] [place] [id number] [place] [address]- 2012 Apr, [place] [address] [place] [address] 48249- 9423 Apr, [place] [address] [place] [id number] [place] [address] 95206- 6199 Apr, [facility] [place] [address] [place] [id number] Feb, Dementia without behavioral disturbance, unspecified dementia type F03.90 and Depression F32.9 [place] [address] [address] Dec, [place] [address] [place] [id number] [place] [address] 84885- 5313 Dec, [place] [address] [place] [id number] [place] [address] 78290- 0469 Dec, [facility] [place] [address] [place] [id number] Dec, Upper respiratory tract infection, unspecified type J06.9 and Cellulitis of nose, external J34.0 [place] [id number] [place] [address] 20966- 2297 Nov, 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 [place] [address] [place] [address] 47920- 2881 Oct, [place] [id number] [place] [address] 12995- 4666 Oct, Seasonal allergies J30.2 ; Dizziness R42 ; Nausea R11.0 and Cough R05 [facility] [address] [id number] Oct, Bipolar disorder, unspecified F31.9 [place] [address] [place] [address] 84758- 5112 Oct, [facility] [place] [address] [place] [id number] Aug, Seasonal allergic rhinitis due to pollen J30.1 [place] [address] [place] [address] 25875- 1879 Aug, [facility] [place] [address] [place] [id number] Jul, Depression F32.9 and Shakes R25.1 [facility] [place] [address] [place] [id number] Jun, Depression F32.9 [place] [address] [place] [id number] [place] [address] 19153- 2298 May, 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 [place] [address] [place] [id number] [place] [address] 65833- 7874 May, [address] [address] March, Easy bruising R23.8 [place] [id number] [place] [address] 90855- 5821 March, 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 [facility] [id number] March, Essential (primary) hypertension I10 ; Chronic [...] R05 and Dementia w behavior dist F03.91 [place] [id number] [place] [address] 11672- 4402 Feb, [place] [id number] [place] [address] 97255- 1253 Feb, Low back pain M54.5 [place] [id number] [address] Jan, Cough R05 and Diarrhea R19.7 [place] [address] [place] [id number] [place] [address] 59341- 4418 Jan, [facility] [address] [place] [address] 47136- 1503 Jan, Depression F32.9 and Dementia without behavioral disturbance , unspecified dementia type F03.90 [facility] [address] [place] [id number] [place] [address] 35384- 8141 Jan, [facility] [place] [address] [place] [id number] Dec, Dementia without behavioral disturbance, unspecified dementia type F03.90 and Depression F32.9 [place] [address] [place] [address] 68530- 6096 Dec, [place] [address] [place] [id number] [place] [address] 53911- 9013 Dec, [place] [address] [place] [address] 88112- 3319 Dec, [place] [address] [place] [address] 33973- 8417 Oct, [facility] [place] [address] [place] [id number] Oct, Dementia without behavioral disturbance, unspecified dementia type F03.90 and Depression F32.9 [place] [address] [address] 12[address] Jul, Cough 786.2 and Diarrhea 787.91 [facility] [place] [address] [place] [id number] May, Depressive disorder, not elsewhere classified 311 [place] [address] [address] 4110 March, Diarrhea 787.91 ; Depression 311 and Dementia 294.20 [place] [address] [place] [id number] [place] [address] Feb, [facility] [address] [id number] [place] [address] 3831 Feb, [facility] [place] [address] [place] [id number] Jan, [facility] [address] [id number] [place] [address]- 0695 Jan, [facility] [address] [id number] [place] [address]- 1019 Dec, [facility] [address] [id number] [place] [address]- 5082 Dec, [facility] [address] [id number] [place] [address]- 5026 Dec, [facility] [place] [address] [place] [id number] Dec, [facility] [address] [id number] [address]- 8138 Aug, [facility] [address] [id number] [address]- 3613 Aug, [facility] [address] [id number] [address]- 0169 Aug, [facility] [place] [address] [place] [id number] Aug, [facility] [address] [id number] [address]- 5667 Jul, [facility] [address] [id number] [address]- 1266 Jul, [facility] [place] [address] [place] [id number] Jun, [facility] [address] [id number] [address]- 4650 Jun, [facility] [address] [id number] [address]- 7316 Jun, [facility] [place] [facility] [address] [id number] [place] [address] Jun, [facility] [place] [facility] [address] [id number] [place] [address]- 3550 Jun, [facility] [place] [facility] [address] [id number] [place] [address]- 8605 Jun, [facility] [address] [facility] [place] [id number] Jun, [facility] [place] [facility] [address] [id number] [place] [address]- 8940 Jun, [facility] [place] [facility] [address] [id number] [place] [address]- 7849 May, [facility] [place] [facility] [address] [id number] [place] [address]- 1146 May, [facility] [place] [facility] [address] [id number] [place] [address]- 0655 May, [facility] [place] [facility] [address] [id number] [place] [address]- 2477 May, [facility] [place] [facility] [address] [id number] [place] [address]- 2504 May, [facility] [place] [facility] [address] [id number] [place] [address]- 8142 May, [facility] [address] [place] [id number] May, [facility] [place] [facility] [address] [id number] [place] [address] May, [facility] [place] [facility] [address] [id number] [place] [address]- 3935 Apr, [facility] [place] [facility] [address] [id number] [place] [address]- 1742 Apr, [facility] [place] [facility] [address] [id number] [place] [address]- 1998 Apr, [facility] [place] [facility] [address] [id number] [place] [address]- 0188 Apr, [facility] [place] [facility] [address] [id number] [place] [address]- 2838 Apr, [facility] [place] [facility] [address] [id number] [place] [address]- 5901 Apr, [facility] [place] [facility] [address] [id number] [place] [address]- 9367 Apr, [facility] [place] [facility] [address] [id number] [place] [address]- 4154 Apr, [facility] [place] [facility] [address] [id number] [place] [address]- 0885 Apr, [facility] [place] [facility] [address] [id number] [place] [address]- 7227 Apr, [facility] [place] [facility] [address] [id number] [place] [address]- 6723 Apr, [facility] [place] [facility] [address] [id number] [place] [address]- 8951 Apr, [facility] [address] [place] [id number] March, [facility] [place] [facility] [address] [id number] [address]- 8056 March, [facility] [place] [facility] [address] [id number] [address]- 6913 March, [facility] [place] [facility] [address] [id number] [place] [address]- 2986 March, [facility] [place] [facility] [address] [id number] [place] [address]- 2967 March, [facility] [place] [facility] [address] [id number] [place] [address]- 6047 March, [facility] [place] [facility] [address] [id number] [place] [address]- [address] Oct, [facility] [address] [facility] [id number] [place] [address] Oct, IMMUNIZATIONS No Known Immunizations SOCIAL HISTORY [...]
--- OUTSIDE RECORDS SUMMARY | 2018-08-06 21:10 | XMS REPORT ---
Author Author BEVERLY BALLESTEROS [facility] Address [address] [place] [address] Care Team Providers [employer] Name Role Phone BEVERLY BALLESTEROS Unavailable PROBLEMS Type Condition ICD9-CM Code RQS64-IJ Code Onset Dates Condition Status SNOMED Code Problem Dementia without behavioral disturbance, unspecified dementia type F03.90 Active 74617818 Problem Depression F32.9 Active 25631722 Problem Bipolar disorder, unspecified F31.9 Active 45846651 Problem Hypokalemia E87.6 Active 56612320 Problem Type 2 diabetes mellitus without complications E11.9 Active 930400665 Problem Nausea and vomiting, unspecified intactability, vomiting of unspecified type R11.2 Active 22520331 Problem Essential (primary) hypertension I10 Active 38305345 Problem 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 Active 02777613 Problem Nausea R11.0 Active 354571149 Problem Subacute dyskinesia due to drug G24.01 Active 483588461 Problem Seasonal allergic rhinitis due to pollen J30.1 Active 18424061 Problem Diarrhea, unspecified type R19.7 Active 86822621 Problem Acute bilateral low back pain with left-sided sciatica M54.42 Active 911569393 Problem Sciatica, left side M54.32 Active 43081101 Problem Gastroesophageal reflux disease, esophagitis presence not specified K21.9 Active 725991717 Problem Constipation, unspecified constipation type K59.00 Active 09087005 Problem Cough R05 Active 54632548 Problem Primary insomnia F51.01 Active 0917277 Problem Poor appetite R63.0 Active 76893343 Problem Atrial fibrillation with RVR I48.91 Active 835014841897757 Problem Tongue pain K14.6 Active 77566680 Problem Restless leg syndrome G25.81 Active 12647359 Problem Neuropathy G62.9 Active 542104723 Problem Dizziness R42 Active 830452853 Problem Seasonal allergies J30.2 Active 148953194 Problem Pain R52 Active 90739788 Problem Hypothyroidism, unspecified type E03.9 Active 67389490 Problem Allergic rhinitis, unspecified J30.9 Active 79229029 Problem Chronic atrial fibrillation I48.2 Active 413460165 ALLERGIES No Information ENCOUNTERS Encounter Location Date Diagnosis [facility] [address] [id number] Jun, Low back pain M54.5 [place] [address] [address] May, [facility] [address] [id number] May, Low back pain M54.5 [place] [address] [address] May, [facility] [address] [id number] Apr, Callus of foot L84 [place] [address] [address] Apr, [facility] [address] [id number] Apr, Acute bilateral low back pain with left-sided sciatica M54.42 [place] [address] [address] Feb, [facility] [address] [id number] Feb, Otalgia of right ear H92.01 [place] [address] [place] [id number] [place] [address] Jan, Cough R05 and Pain of left hip joint M25.552 [place] [address] [id number] Dec, [facility] [address] [id number] Dec, Dementia without behavioral disturbance, unspecified dementia type F03.90 [place] [address] [address]- [address] Nov, [facility] [place] [address] [place] [id number] Oct, Sciatica, left side M54.32 [place] [address] [address] [place] [id number] [place] [id number] Oct, Pain of left hip joint M25.[address] [facility] [address] [id number] Sep, Dementia without behavioral disturbance, unspecified dementia type F03.90 [place] [address] [place] [address]491- [address] 14 Jul, 2017 Atrial fibrillation with RVR I48.91 [facility] [place] [address] [place] [id number] 12 Jul, 2017 Tongue pain K14.6 [place] [address] [place] [id number] [place] [id number] Jul, [place] [address] [place] [id number] [place] [address] [id number] Jul, [facility] [place] [address] [place] [id number] Jun, Allergic rhinitis, unspecified J30.9 ; Poor appetite R63.0 and Primary insomnia F51.01 [place] [address] [address] May, Gastroesophageal reflux disease, esophagitis presence not specified K21.9 [place] [address] [place] [id number] [place] [address] [id number] May, [facility] [place] [address] [id number] Apr, Cervicalgia M54.2 and Depression F32.9 [place] [address] [place] [id number] [place] [address]15- 4171 Apr, [place] [address] [place] [address] 65314- 3238 Apr, [place] [address] [place] [id number] [place] [address] 25611- 2062 Apr, [facility] [place] [address] [id number] Feb, Dementia without behavioral disturbance, unspecified dementia type F03.90 and Depression F32.9 [place] [address] [address] Dec, [place] [address] [place] [id number] [place] [address] 79967- 3592 Dec, [place] [address] [place] [id number] [place] [address] 49748- 9393 Dec, [facility] [place] [address] [id number] Dec, Upper respiratory tract infection, unspecified type J06.9 and Cellulitis of nose, external J34.0 [place] [id number] [place] [address] 02291- 2759 Nov, 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 [place] [address] [place] [address] 74157- 1239 Oct, [place] [id number] [place] [address] 58056- 0883 Oct, Seasonal allergies J30.2 ; Dizziness R42 ; Nausea R11.0 and Cough R05 [facility] [address] [id number] Oct, Bipolar disorder, unspecified F31.9 [place] [address] [place] [address] 24785- 8348 Oct, [facility] [place] [address] [id number] Aug, Seasonal allergic rhinitis due to pollen J30.1 [place] [address] [place] [address] 28128- 6833 Aug, [facility] [place] [address] [id number] Jul, Depression F32.9 and Shakes R25.1 [facility] [place] [address] [place] [id number] Jun, Depression F32.9 [place] [address] [place] [id number] [place] [address] 65875- 65[address] May, 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 [place] [address] [place] [id number] [place] [address]37- 7161 May, [address] [address] March, Easy bruising R23.8 [place] [id number] [place] [address] 00562- 6980 March, 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 [id number] March, Essential (primary) hypertension I10 ; Chronic [...] R05 and Dementia w behavior dist F03.91 [place] [id number] [place] [address] 05475- 0737 Feb, [place] [id number] [place] [address] 13748- 5027 Feb, Low back pain M54.5 [place] [id number] [address] Jan, Cough R05 and Diarrhea R19.7 [place] [address] [place] [id number] [place] [address] 75945- 7433 Jan, [facility] [address] [place] [address] 44695- 8203 Jan, Depression F32.9 and Dementia without behavioral disturbance , unspecified dementia type F03.90 [facility] [address] [place] [id number] [place] [address] 47173- 5182 Jan, [facility] [address] [id number] Dec, Dementia without behavioral disturbance, unspecified dementia type F03.90 and Depression F32.9 [place] [address] [place] [address] 29220- 1202 Dec, [place] [address] [place] [id number] [place] [address] 76384- 7695 Dec, [place] [address] [place] [address] 65630- 1730 Dec, [place] [address] [place] [address] 95412- 4917 Oct, [facility] [place] [address] [place] [id number] Oct, Dementia without behavioral disturbance, unspecified dementia type F03.90 and Depression F32.9 [place] [address] [address] Jul, Cough 786.2 and Diarrhea 787.91 [facility] [address] [id number] May, Depressive disorder, not elsewhere classified 311 [place] [address] [address] 3[address] March, Diarrhea 787.91 ; Depression 311 and Dementia 294.20 [place] [address] [place] [id number] [place] [address] Feb, [facility] [place] [address] [id number] [place] [address]- 6161 Feb, [facility] [place] [address] [id number] Jan, [facility] [address] [id number] [place] [address]- 58[address] Jan, [facility] [address] [id number] [place] [address]- 1015 Dec, [facility] [address] [id number] [place] [address]- 5664 Dec, [facility] [address] [id number] [place] [address]- 4644 Dec, [facility] [place] [address] [id number] Dec, [facility] [address] [id number] [place] [address]- 7[address] Aug, [facility] [address] [id number] [place] [address]- 9078 Aug, [facility] [address] [id number] [place] [address]- 0512 Aug, [facility] [place] [address] [id number] Aug, [facility] [address] [id number] [place] [address]- 2090 Jul, [facility] [address] [id number] [place] [address]- 2821 Jul, [facility] [place] [address] [id number] Jun, [facility] [address] [id number] [place] [address]- 9091 Jun, [facility] [address] [id number] [place] [address]- 1376 Jun, [facility] [place] [facility] [address] [id number] [place] Jun, [facility] [place] [facility] [address] [id number] [place] [address]- 5468 Jun, [facility] [place] [facility] [address] [id number] [place] [address]- 8718 Jun, [facility] [address] [facility] [place] [id number] Jun, [facility] [place] [facility] [address] [id number] [place] [address]- 4206 Jun, [facility] [place] [facility] [address] [id number] [place] [address]- 1811 May, [facility] [place] [facility] [address] [id number] [place] [address]- 9152 May, [facility] [place] [facility] [address] [id number] [place] [address]- 3884 May, [facility] [place] [facility] [address] [id number] [place] [address]- 5414 May, [facility] [place] [facility] [address] [id number] [place] [address]- 0495 May, [facility] [place] [facility] [address] [id number] [place] [address]- 2040 May, [facility] [address] [id number] May, [facility] [place] [facility] [address] [id number] [place] [address] May, [facility] [place] [facility] [address] [id number] [place] [address]- [address] Apr, [facility] [place] [facility] [address] [id number] [place] [address]- 9971 Apr, [facility] [place] [facility] [address] [id number] [place] [address]- 7476 Apr, [facility] [place] [facility] [address] [id number] [place] [address]- 2794 Apr, [facility] [place] [facility] [address] [id number] [place] [address]- 1309 Apr, [facility] [place] [facility] [address] [id number] [place] [address]- 9428 Apr, [facility] [place] [facility] [address] [id number] [place] [address]- 2791 Apr, [facility] [place] [facility] [address] [id number] [place] [address]- 9701 Apr, [facility] [place] [facility] [address] [id number] [place] [address]- 9189 Apr, [facility] [place] [facility] [address] [id number] [place] [address]- 3463 Apr, [facility] [place] [facility] [address] [id number] [place] [address]- 1436 Apr, [facility] [place] [facility] [address] [id number] [place] [address]- 2320 Apr, [facility] [address] [id number] March, [facility] [place] [facility] [address] [id number] [place] [address]- 7254 March, [facility] [place] [facility] [address] [id number] [place] [address]- 4066 March, [facility] [place] [facility] [address] [id number] [place] [address]- 4560 March, [facility] [place] [facility] [address] [id number] [place] [address]- 4804 March, [facility] [place] [facility] [address] [id number] [place] [address]- 1177 March, [facility] [place] [facility] [address] [id number] [place] [address] Oct, [facility] [address] [facility] [id number] AIR [place] [address] Oct, IMMUNIZATIONS No Known Immunizations SOCIAL HISTORY Never Assessed REASON FOR VISIT Med list review PLAN OF CARE VITAL SIGNS MEDICATIONS Medication Instructions Dosage Frequency Start Date End Date Duration Status Carbidopa-Levodopa 25-100 mg take 1 tablet by Oral route 2 times per day March, Active Famotidine 20 mg Orally twice a day 1 tablet at bedtime 12h Active Losartan Potassium 100 MG Orally Once a day 1 tablet 24h Active Gabapentin 100 MG Orally Once a day 1 capsule 24h March, Active Lasix 40 Orally Once a day 1 tablet 24h Active Gabapentin 100 MG Orally Once a day at HS 2 tablets Active Potassium Chloride ER 20 MEQ Orally 3 times a day 1 tablet 8h Active Oxcarbazepine 300 Orally at bedtime 1 tablet Active Biofreeze 4 % Externally every 4 hrs as needed 1 application to affected area as needed Feb, Active Cetirizine HCl 10 mg Orally Once a day 1 tablet 24h Active Diltiazem CD 240 MG Orally Once a day 1 capsule 24h Active Trazodone HCl 50 MG Orally Once a day 1 tablet at bedtime as needed 24h Active Magnesium Oxide 500 MG Orally 3 times a day 1 tablet 8h March, Active Requip 1 MG Orally 2 times a day 1 tablet for restless leg syndrome 12h March, Active Levothyroxine Sodium 125 MCG Orally Once a day 1 tablet 24h Active Acetaminophen 325 MG Orally every 4 hours 2 tablets as needed for pain 4h Active Senna 8.6 MG Orally Once a day 1 tablet as needed 24h March, Active Imodium A-D 2 MG Orally 8 time(s) a day 1 tablet as needed for Diarrhea Active Exelon 6 MG Orally Twice a day 1 Capsule 12h Jun, Active Melatonin 3 MG Orally at bedtime 3 tablets at bedtime Active Lactobacillus - Active Amlodipine Besylate 10 MG Orally Once a day 1 tablet 24h Active Xarelto 10 MG Orally Once a day 1 tablet 24h Active Zoloft 100 MG Orally Once a day 1 tablet 24h Jun, Active RESULTS No Results PROCEDURES No Known procedures INSTRUCTIONS MEDICATIONS ADMINISTERED No Known Medications MEDICAL (GENERAL) HISTORY Type Description Date Medical 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
--- OUTSIDE RECORDS SUMMARY | 2018-08-06 21:10 | XMS REPORT ---
Author Author BEVERLY BALLESTEROS [facility] Address [address] [place] [address] Care Team Providers Care Vest Finisher Name Role Phone BEVERLY BALLESTEROS Unavailable PROBLEMS Type Condition ICD9-CM Code XQG96-JV Code Onset Dates Condition Status SNOMED Code Problem Dementia without behavioral disturbance, unspecified dementia type F03.90 Active 43209383 Problem Depression F32.9 Active 57570720 Problem Bipolar disorder, unspecified F31.9 Active 63007471 Problem Hypokalemia E87.6 Active 69681715 Problem Type 2 diabetes mellitus without complications E11.9 Active 093420086 Problem Nausea and vomiting, unspecified intactability, vomiting of unspecified type R11.2 Active 43396134 Problem Essential (primary) hypertension I10 Active 09243832 Problem 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 Active 36256859 Problem Nausea R11.0 Active 313301168 Problem Subacute dyskinesia due to drug G24.01 Active 051143310 Problem Seasonal allergic rhinitis due to pollen J30.1 Active 46833426 Problem Diarrhea, unspecified type R19.7 Active 57042310 Problem Acute bilateral low back pain with left-sided sciatica M54.42 Active 185172113 Problem Sciatica, left side M54.32 Active 94082949 Problem Gastroesophageal reflux disease, esophagitis presence not specified K21.9 Active 515797569 Problem Constipation, unspecified constipation type K59.00 Active 94801897 Problem Cough R05 Active 65106229 Problem Primary insomnia F51.01 Active 1417205 Problem Poor appetite R63.0 Active 46690863 Problem Atrial fibrillation with RVR I48.91 Active 625698672861941 Problem Tongue pain K14.6 Active 20359046 Problem Restless leg syndrome G25.81 Active 00904953 Problem Neuropathy G62.9 Active 214544337 Problem Dizziness R42 Active 160838328 Problem Seasonal allergies J30.2 Active 413403265 Problem Pain R52 Active 25018434 Problem Hypothyroidism, unspecified type E03.9 Active 36611122 Problem Allergic rhinitis, unspecified J30.9 Active 59444126 Problem Chronic atrial fibrillation I48.2 Active 533706787 ALLERGIES No Information ENCOUNTERS Encounter Location Date Diagnosis [facility] [address] [id number] Jun, Low back pain M54.5 [place] [address] [address] May, [facility] [address] [id number] May, Low back pain M54.5 [place] [address] [address] May, [facility] [address] [id number] Apr, Callus of foot L84 [place] [address] [address] Apr, [facility] [address] [id number] Apr, Acute bilateral low back pain with left-sided sciatica M54.42 [place] [address] [address] Feb, [facility] [address] [id number] Feb, Otalgia of right ear H92.01 [place] [address] [place] [id number] [place] [address] Jan, Cough R05 and Pain of left hip joint M25.552 [place] [address] [id number] Dec, [facility] [address] [id number] Dec, Dementia without behavioral disturbance, unspecified dementia type F03.90 [place] [address] [address] Nov, [facility] [place] [address] [place] [id number] Oct, Sciatica, left side M54.32 [place] [address] [place] [id number] [place] [id number] Oct, Pain of left hip joint M25.[address] [facility] [address] [id number] Sep, Dementia without behavioral disturbance, unspecified dementia type F03.90 [place] [address] [place] [address]- [address] 14 Jul, 2017 Atrial fibrillation with RVR I48.91 [facility] [place] [address] [place] [id number] 12 Jul, 2017 Tongue pain K14.6 [place] [address] [place] [id number] [place] [id number] Jul, [place] [address] [place] [id number] [place] [id number] Jul, [facility] [place] [address] [place] [id number] Jun, Allergic rhinitis, unspecified J30.9 ; Poor appetite R63.0 and Primary insomnia F51.01 [place] [address] [address] May, Gastroesophageal reflux disease, esophagitis presence not specified K21.9 [place] [address] [place] [id number] [place] [id number] May, [facility] [place] [address] [place] [id number] Apr, Cervicalgia M54.2 and Depression F32.9 [place] [address] [place] [id number] [place] [address]- [address]17 Apr, [place] [address] [place] [address]- 1827 Apr, [place] [address] [place] [id number] [place] [address]- 488[address] Apr, [facility] [place] [address] [place] [id number] Feb, Dementia without behavioral disturbance, unspecified dementia type F03.90 and Depression F32.9 [place] [address] [address] Dec, [place] [address] [place] [id number] [place] [address]- 6[address] Dec, [place] [address] [place] [id number] [place] [address] 16[address]- 6239 Dec, [facility] [place] [address] [place] [id number] Dec, Upper respiratory tract infection, unspecified type J06.9 and Cellulitis of nose, external J34.0 [place] [id number] [place] [address]67- 8217 Nov, 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 [place] [address] [place] [address]7983- 7717 Oct, [place] [id number] [place] [address]- 59[address] Oct, Seasonal allergies J30.2 ; Dizziness R42 ; Nausea R11.0 and Cough R05 [facility] [address] [id number] Oct, Bipolar disorder, unspecified F31.9 [place] [address] [place] [address]20- [address] Oct, [facility] [place] [address] [place] [id number] Aug, Seasonal allergic rhinitis due to pollen J30.1 [place] [address] [place] [address]83- 8113 Aug, [facility] [place] [address] [place] [id number] Jul, Depression F32.9 and Shakes R25.1 [facility] [place] [address] [place] [id number] Jun, Depression F32.9 [place] [address] [place] [id number] [place] [address]84- [address] May, 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 [place] [address] [place] [id number] [place] [address]- 4[address] May, [address] [address] March, Easy bruising R23.8 [place] [id number] [place] [address] 6[address]- [address] March, 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 [id number] March, Essential (primary) hypertension I10 ; Chronic [...] R05 and Dementia w behavior dist F03.91 [place] [id number] [place] [address]- [address] Feb, [place] [id number] [place] [address] 72527- 1693 Feb, Low back pain M54.5 [place] [id number] [address] Jan, Cough R05 and Diarrhea R19.7 [place] [address] [place] [id number] [place] [address]- [address] Jan, [facility] [address] [place] [address] 6[address]- 4[address] Jan, Depression F32.9 and Dementia without behavioral disturbance , unspecified dementia type F03.90 [facility] [address] [place] [id number] [place] [address]859- 8967 Jan, [facility] [place] [address] [place] [id number] Dec, Dementia without behavioral disturbance, unspecified dementia type F03.90 and Depression F32.9 [place] [address] [place] [address]67- 1995 Dec, [place] [address] [place] [id number] [place] [address]77- 0726 Dec, [place] [address] [place] [address] 43413- 9072 Dec, [place] [address] [place] [address]- 2005 Oct, [facility] [place] [address] [place] [id number] Oct, Dementia without behavioral disturbance, unspecified dementia type F03.90 and Depression F32.9 [place] [address] [address] Jul, Cough 786.2 and Diarrhea 787.91 [facility] [place] [address] [place] [id number] May, Depressive disorder, not elsewhere classified 311 [place] [address] [address] March, Diarrhea 787.91 ; Depression 311 and Dementia 294.20 [place] [address] [place] [id number] [place] [address] Feb, [facility] [address] [id number] [place] [address] Feb, [facility] [place] [address] [place] [id number] Jan, [facility] [address] [id number] [place] [address] Jan, [facility] [address] [id number] [place] [address]- 5895 Dec, [facility] [address] [id number] [place] [address]- [address] Dec, [facility] [address] [id number] [place] [address]- 6244 Dec, [facility] [place] [address] [place] [id number] Dec, [facility] [address] [id number] [address]- [address] Aug, [facility] [address] [id number] [address] Aug, [facility] [address] [id number] [address]- [address] Aug, [facility] [place] [address] [place] [id number] Aug, [facility] [address] [id number], [place] [address]- [address]30 Jul, [facility] [address] [id number] [address]- 30[address] Jul, [facility] [place] [address] [place] [id number] Jun, [facility] [address] [id number] [address]- 1423 Jun, [facility] [address] [id number] [address]- 4596 Jun, [facility] [place] [facility] [address] [id number] [place] [address] Jun, [facility] [place] [facility] [address] [id number] [place] [address]- 0668 Jun, [facility] [place] [facility] [address] [id number] [place] [address]- 37[address] Jun, [facility] [address] [facility] [id number] Jun, [facility] [place] [facility] [address] [id number] [place] [address]- 7091 Jun, [facility] [place] [facility] [address] [id number] [place] [address]- 5705 May, [facility] [place] [facility] [address] [id number] [place] [address]- 6536 May, [facility] [place] [facility] [address] [id number] [place] [address]- 0155 May, [facility] [place] [facility] [address] [id number] [place] [address]- 9655 May, [facility] [place] [facility] [address] [id number] [place] [address]- 7596 May, [facility] [place] [facility] [address] [id number] [place] [address]- 0791 May, [facility] [address] [place] [id number] May, [facility] [place] [facility] [address] [id number] [place] [address] May, [facility] [place] [facility] [address] [id number] [place] [address]- 7856 Apr, [facility] [place] [facility] [address] [id number] [place] [address]- 0016 Apr, [facility] [place] [facility] [address] [id number] [place] [address]- 2099 Apr, [facility] [place] [facility] [address] [id number] [place] [address]- 5160 Apr, [facility] [place] [facility] [address] [id number] [place] [address]- 7454 Apr, [facility] [place] [facility] [address] [id number] [place] [address]- 0310 Apr, [facility] [place] [facility] [address] [id number] [place] [address]- 9428 Apr, [facility] [place] [facility] [address] [id number] [place] [address]- 0852 Apr, [facility] [place] [facility] [address] [id number] [place] [address]- 4862 Apr, [facility] [place] [facility] [address] [id number] [place] [address]- 5392 Apr, [facility] [place] [facility] [address] [id number] [place] [address]- 5953 Apr, [facility] [place] [facility] [address] [id number] [place] [address]- 9761 Apr, [facility] [address] [place] [id number] March, [facility] [place] [facility] [address] [id number], [place] [address]- [address] March, [facility] [place] [facility] [address] [id number] [address]- 0659 March, [facility] [place] [facility] [address] [id number] [place] [address]- 7506 March, [facility] [place] [facility] [address] [id number] [place] [address]- 7941 March, [facility] [place] [facility] [address] [id number] [place] [address]- 3619 March, [facility] [place] [facility] [address] [id number] [place] [address]- 5767 Oct, [facility] [address] [facility] [id number] [address]- [address] Oct, IMMUNIZATIONS No Known Immunizations SOCIAL HISTORY Never Assessed REASON FOR VISIT Routine Visit PLAN OF CARE Activity Details Follow Up prn Reason: VITAL SIGNS MEDICATIONS Medication Instructions Dosage Frequency Start Date End Date Duration Status Cetirizine HCl 10 mg Orally Once a day 1 tablet 24h Active Xarelto 10 MG Orally Once a day 1 tablet 24h Active Potassium Chloride ER 20 MEQ Orally 3 times a day 1 tablet 8h Active Diltiazem CD 240 MG Orally Once a day 1 capsule 24h Active Levothyroxine Sodium 125 MCG Orally Once a day 1 tablet 24h Active Exelon 6 MG Orally Twice a day 1 Capsule 12h Jun, Active Amlodipine Besylate 10 MG Orally Once a day 1 tablet 24h Active Gabapentin 100 MG Orally Once a day 1 capsule 24h March, Active Imodium A-D 2 MG Orally 8 time(s) a day 1 tablet as needed for Diarrhea Active Carbidopa-Levodopa 25-100 mg take 1 tablet by Oral route 2 times per day March, Active Lactobacillus - Active Trazodone HCl 50 MG Orally Once a day 1 tablet at bedtime as needed 24h Active Magnesium Oxide 500 MG Orally 3 times a day 1 tablet 8h March, Active Senna 8.6 MG Orally Once a day 1 tablet as needed 24h March, Active Gabapentin 100 MG Orally Once a day at HS 2 tablets Active Acetaminophen 325 MG Orally every 4 hours 2 tablets as needed for pain 4h Active Melatonin 3 MG Orally at bedtime 3 tablets at bedtime Active Zoloft 100 MG Orally Once a day 1 tablet 24h Jun, Active Requip 1 MG Orally 2 times a day 1 tablet for restless leg syndrome 12h March, Active Oxcarbazepine 300 Orally at bedtime 1 tablet Active Vision Formula/Lutein - Active Famotidine 20 mg Orally twice a day 1 tablet at bedtime 12h Active Losartan Potassium 100 MG Orally Once a day 1 tablet 24h Active Lasix 40 Orally Once a day 1 tablet 24h Active Flonase 50 MCG/ACT Nasally Once a day 1 spray in each nostril 24h Feb, 30 day(s) Active Synthroid 125 TAKE ONE TABLET BY MOUTH DAILY 30 Active RESULTS No Results PROCEDURES Procedure Date Ordered Result Body Site Minor complication (15 mins) February 16, 2018 INSTRUCTIONS MEDICATIONS ADMINISTERED No Known Medications MEDICAL (GENERAL) HISTORY Type Description Date Medical 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
--- OUTSIDE RECORDS SUMMARY | 2018-08-06 21:11 | XMS REPORT ---
Author Author BEVERLY BALLESTEROS [facility] Address [address] [place] [address] Care Team Providers Care Anchorer Name Role Phone BEVERLY BALLESTEROS Unavailable PROBLEMS Type Condition ICD9-CM Code ZCH43-CC Code Onset Dates Condition Status SNOMED Code Problem Dementia without behavioral disturbance, unspecified dementia type F03.90 Active 13398275 Problem Depression F32.9 Active 96883450 Problem Bipolar disorder, unspecified F31.9 Active 67048090 Problem Hypokalemia E87.6 Active 71411441 Problem Type 2 diabetes mellitus without complications E11.9 Active 603308767 Problem Nausea and vomiting, unspecified intactability, vomiting of unspecified type R11.2 Active 77576763 Problem Essential (primary) hypertension I10 Active 57308227 Problem 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 Active 40492767 Problem Nausea R11.0 Active 976030723 Problem Subacute dyskinesia due to drug G24.01 Active 003251946 Problem Seasonal allergic rhinitis due to pollen J30.1 Active 87573146 Problem Diarrhea, unspecified type R19.7 Active 16691344 Problem Acute bilateral low back pain with left-sided sciatica M54.42 Active 894569231 Problem Sciatica, left side M54.32 Active 77413324 Problem Gastroesophageal reflux disease, esophagitis presence not specified K21.9 Active 389489728 Problem Constipation, unspecified constipation type K59.00 Active 51929480 Problem Cough R05 Active 56507423 Problem Primary insomnia F51.01 Active 8237955 Problem Poor appetite R63.0 Active 99677799 Problem Atrial fibrillation with RVR I48.91 Active 319077910442483 Problem Tongue pain K14.6 Active 78420470 Problem Restless leg syndrome G25.81 Active 46402454 Problem Neuropathy G62.9 Active 587576980 Problem Dizziness R42 Active 273689049 Problem Seasonal allergies J30.2 Active 302206105 Problem Pain R52 Active 38139496 Problem Hypothyroidism, unspecified type E03.9 Active 60498655 Problem Allergic rhinitis, unspecified J30.9 Active 68663079 Problem Chronic atrial fibrillation I48.2 Active 945231976 ALLERGIES No Information ENCOUNTERS Encounter Location Date Diagnosis [place] [address] [address] Apr, [facility] [place] [address] [place] [id number] Apr, Acute bilateral low back pain with left-sided sciatica M54.42 [place] [address] [place] [address] Feb, [facility] [address] [id number] Feb, Otalgia of right ear H92.01 [place] [address], [place] [address] Jan, Cough R05 and Pain of left hip joint M25.552 [place] [address] [place] [id number] [place] [id number] Dec, [facility] [address] [id number] Dec, Dementia without behavioral disturbance, unspecified dementia type F03.90 [place] [address], [place] [address] Nov, [facility] [address] [place] [id number] Oct, Sciatica, left side M54.32 [place] [id number] [id number] Oct, Pain of left hip joint M25.[address] [id number] Sep, Dementia without behavioral disturbance, unspecified dementia type F03.90 [place] [address], [place] [address] 14 Jul, 2017 Atrial fibrillation with RVR I48.91 [facility] [address] [place] [phone] Jul, Tongue pain K14.6 [facility] [address] [place] [id number] [place] [id number] Jul, [facility] [address] [address] [id number] [place] [id number] Jul, [facility] [address] [place] [id number] Jun, Allergic rhinitis, unspecified J30.9 ; Poor appetite R63.0 and Primary insomnia F51.01 [facility] [address], [place] [address] May, Gastroesophageal reflux disease, esophagitis presence not specified K21.9 [facility] [address] [place] [id number] [place] [id number] May, [facility] [address] [place] [id number] Apr, Cervicalgia M54.2 and Depression F32.9 [facility] [address] [place] [address] Apr, [facility] [address] [place] [id number] [place] [address] Apr, [facility] [address] [place] [address] Apr, [facility] [address] [id number] Feb, Dementia without behavioral disturbance, unspecified dementia type F03.90 and Depression F32.9 [facility] [address], [place] [address] Dec, [facility] [address] [place] [id number] [place] [address] 4[address] Dec, [facility] [address] [place] [address] 49105- [address]239 Dec, [facility] [address] [place] [id number] Dec, Upper respiratory tract infection, unspecified type J06.9 and Cellulitis of nose, external J34.0 [place] [address] [place] [id number] [place] [address] Nov, 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 [place] [address] [place] [id number] [place] [address]- [address] Oct, [place] [address] [address] Oct, Seasonal allergies J30.2 ; Dizziness R42 ; Nausea R11.0 and Cough R05 [facility] [address] [id number] Oct, Bipolar disorder, unspecified F31.[address] [address] Oct, [facility] [address] [id number] Aug, Seasonal allergic rhinitis due to pollen J30.1 [place] [id number] [place] [address] Aug, [facility] [address] [id number] Jul, Depression F32.9 and Shakes R25.[address] [facility] [address] [id number] Jun, Depression F32.9 [place] [address] [place] [id number] [place] [address] May, 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 [place] [address] [place] [id number] [place] [address]- [address] May, [place] [id number] [place] [address] March, Easy bruising R23.[address] [address] March, 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 [facility] [address] [place] [id number] March, Essential (primary) hypertension I10 ; Chronic [...] R05 and Dementia w behavior dist F03.91 [place] [address] [place] [id number] [place] [address] Feb, [place] [address] [place] [id number] [place] [address] Feb, Low back pain M54.5 [place] [address] [place] [id number] [place] [address]- [address] Jan, Cough R05 and Diarrhea R19.7 [place] [address] [place] [id number] [place] [address]- [address] Jan, [place] [address] [place] [id number] [place] [address] Jan, Depression F32.9 and Dementia without behavioral disturbance , unspecified dementia type F03.90 [place] [address] [place] [id number] [place] [address]36- 48[address] Jan, [facility] [address] [place] [id number] Dec, Dementia without behavioral disturbance, unspecified dementia type F03.90 and Depression F32.9 [facility] [address] [place] [address] 85213- 8[address] Dec, [facility] [address] [place] [address] 33145- 5014 Dec, [facility] [address] [place] [id number] [place] [address] 33022- 8098 Dec, [facility] [address] [place] [id number] [place] [address]- [address] Oct, [facility] [address] [id number] Oct, Dementia without behavioral disturbance, unspecified dementia type F03.90 and Depression F32.9 [place] [address] [place] [id number] [place] [address]- [address] Jul, Cough 786.2 and Diarrhea 787.91 [facility] [address] [place] [phone] May, Depressive disorder, not elsewhere classified 311 [facility] [address] [place] [id number] [place] [address] 355[address] March, Diarrhea 787.91 ; Depression 311 and Dementia 294.20 [facility] [address] [place] [address]01- 2012 Feb, [facility] [address] [place] [address] 71992- 2157 Feb, [facility] [address] [place] [id number] Jan, [facility] [address] [place] [id number] [place] [address] 36896- 2249 Jan, [facility] [address] [place] [address] 23079- 5909 Dec, [facility] [address] [place] [id number] [place] [address] 47135- 1294 Dec, [facility] [address] [id number] [place] [address] Dec, [facility] [address] [facility] [id number] Dec, [facility] [address] [id number] [place] [address] Aug, [facility] [address] [id number], [place] [address] Aug, [facility] [address] [id number] [place] [address]- [address] Aug, [facility] [address] [facility] [id number] Aug, [facility] [address] [id number], [place] [address] Jul, [facility] [address] [id number], [place] [address] Jul, [facility] [address] [facility] [id number] Jun, [facility] [address] [id number], [place] [address] 86[address] Jun, [facility] [address] [id number], [place] [address]- 9[address] Jun, [facility] [address] [id number], [place] [address] Jun, [facility] [address] [id number], [place] [address]- 2751 Jun, [facility] [address] [id number] [place] [address]- 3036 Jun, [facility] [address] [facility] [id number] Jun, [facility] [address] [id number], [place] [address] 3[address] Jun, [facility] [place] [facility] [address] [id number] [place] [address]- 75[address] May, [facility] [place] [facility] [address] [id number] [place] [address]- 3713 May, [facility] [place] [facility] [address] [id number] [place] [address]- 6842 May, [facility] [place] [facility] [address] [id number] [place] [address]- 1841 May, [facility] [place] [facility] [address] [id number] [place] [address]- 3077 May, [facility] [place] [facility] [address] [id number] [place] [address]- 8488 May, [facility] [address] [id number] May, [facility] [place] [facility] [address] [id number] [place] [address]- 8055 May, [facility] [place] [facility] [address] [id number] [place] [address]- 3264 Apr, [facility] [place] [facility] [address] [id number] [place] [address]- 8273 Apr, [facility] [place] [facility] [address] [id number] [place] [address]- [address] Apr, [facility] [place] [facility] [address] [id number] [place] [address]- 6921 Apr, [facility] [place] [facility] [address] [id number] [place] [address]- 1476 Apr, [facility] [place] [facility] [address] [id number] [place] [address]- 5575 Apr, [facility] [place] [facility] [address] [id number] [place] [address]- 0603 Apr, [facility] [place] [facility] [address] [id number] [place] [address]- 9076 Apr, [facility] [address] [facility] [id number], [place] [address] 98[address] Apr, [facility] [address] [facility] [id number], [place] [address]- 98[address] Apr, [facility] [address] [facility] [id number], [place] [address]- 3[address] Apr, [facility] [address] [facility] [id number], [place] [address] 6[address] Apr, [facility] [address] [id number] March, [facility] [address] [facility] [id number], [place] [address] March, [facility] [address] [facility] [id number], [place] [address]- [address] March, [facility] [address] [facility] [id number], [place] [address]- 7676 March, [facility] [address] [facility] [id number], [place] [address]- 0183 March, [facility] [address] [facility] [id number], [place] [address]- 6927 March, [facility] [address] [facility] [id number], [place] [address]- 6892 Oct, [facility] [address] [facility] [id number], [place] [address]- 459[address] Oct, IMMUNIZATIONS No Known Immunizations SOCIAL HISTORY Never Assessed REASON FOR VISIT PLAN OF CARE VITAL SIGNS MEDICATIONS Unknown Medications RESULTS No Results PROCEDURES No Known procedures INSTRUCTIONS MEDICATIONS ADMINISTERED No Known Medications
--- OUTSIDE RECORDS SUMMARY | 2018-08-06 21:11 | XMS REPORT ---
Author Author BEVERLY BALLESTEROS [facility] Address [address] [place] [address] Care Team Providers Care Sap Developer Name Role Phone BEVERLY BALLESTEROS Unavailable PROBLEMS Type Condition ICD9-CM Code HIE51-MK Code Onset Dates Condition Status SNOMED Code Problem Dementia without behavioral disturbance, unspecified dementia type F03.90 Active 41422248 Problem Depression F32.9 Active 74987176 Problem Bipolar disorder, unspecified F31.9 Active 60773738 Problem Hypokalemia E87.6 Active 84953970 Problem Type 2 diabetes mellitus without complications E11.9 Active 388992564 Problem Nausea and vomiting, unspecified intactability, vomiting of unspecified type R11.2 Active 45987662 Problem Essential (primary) hypertension I10 Active 23569552 Problem 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 Active 04642674 Problem Nausea R11.0 Active 381885442 Problem Subacute dyskinesia due to drug G24.01 Active 037619639 Problem Seasonal allergic rhinitis due to pollen J30.1 Active 06114091 Problem Diarrhea, unspecified type R19.7 Active 56832171 Problem Acute bilateral low back pain with left-sided sciatica M54.42 Active 276106673 Problem Sciatica, left side M54.32 Active 41766153 Problem Gastroesophageal reflux disease, esophagitis presence not specified K21.9 Active 845422639 Problem Constipation, unspecified constipation type K59.00 Active 61432499 Problem Cough R05 Active 99798523 Problem Primary insomnia F51.01 Active 8104229 Problem Poor appetite R63.0 Active 53128292 Problem Atrial fibrillation with RVR I48.91 Active 336881446478235 Problem Tongue pain K14.6 Active 65530343 Problem Restless leg syndrome G25.81 Active 83855191 Problem Neuropathy G62.9 Active 930827774 Problem Dizziness R42 Active 331836534 Problem Seasonal allergies J30.2 Active 443136654 Problem Pain R52 Active 59999593 Problem Hypothyroidism, unspecified type E03.9 Active 10960875 Problem Allergic rhinitis, unspecified J30.9 Active 02428901 Problem Chronic atrial fibrillation I48.2 Active 824309359 ALLERGIES No Information ENCOUNTERS Encounter Location Date Diagnosis [place] [address] [address] Apr, [facility] [place] [address] [place] [id number] Apr, Acute bilateral low back pain with left-sided sciatica M54.42 [place] [id number] [place] [address] Feb, [facility] [address] [id number] Feb, Otalgia of right ear H92.01 [place] [address], [place] [address] Jan, Cough R05 and Pain of left hip joint M25.552 [place] [address] [place] [id number] [place] [id number] Dec, [facility] [address] [place] [id number] Dec, Dementia without behavioral disturbance, unspecified dementia type F03.90 [place] [address], [place] [address] Nov, [facility] [address] [place] [id number] Oct, Sciatica, left side M54.32 [place] [id number] [id number] Oct, Pain of left hip joint M25.[address] [id number] Sep, Dementia without behavioral disturbance, unspecified dementia type F03.90 [place] [address], [place] [address] 14 Jul, 2017 Atrial fibrillation with RVR I48.91 [facility] [address] [place] [id number] Jul, Tongue pain K14.6 [facility] [address] [place] [id number] [place] [id number] Jul, [facility] [address] [place] [address] [id number] [place] [id number] Jul, [facility] [address] [place] [id number] Jun, Allergic rhinitis, unspecified J30.9 ; Poor appetite R63.0 and Primary insomnia F51.01 [facility] [address], [place] [address] May, Gastroesophageal reflux disease, esophagitis presence not specified K21.9 [facility] [address] [place] [id number] [place] [address] [id number] May, [facility] [address] [place] [id number] Apr, Cervicalgia M54.2 and Depression F32.9 [facility] [address] [place] [address]- 8666 Apr, [facility] [address] [place] [id number] [place] [address] Apr, [facility] [address] [place] [address]- [address] Apr, [facility] [address] [place] [id number] Feb, Dementia without behavioral disturbance, unspecified dementia type F03.90 and Depression F32.9 [facility] [address], [place] [address] Dec, [facility] [address] [place] [id number] [place] [address]79- 8843 Dec, [facility] [address] [place] [address]186- 1306 Dec, [facility] [address] [place] [id number] Dec, Upper respiratory tract infection, unspecified type J06.9 and Cellulitis of nose, external J34.0 [place] [address] [place] [id number] [place] [address] Nov, 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 [place] [address] [place] [id number] [place] [address] Oct, [place] [address] [address] Oct, Seasonal allergies J30.2 ; Dizziness R42 ; Nausea R11.0 and Cough R05 [facility] [address] [id number] Oct, Bipolar disorder, unspecified F31.[address] [address] Oct, [facility] [address] [id number] Aug, Seasonal allergic rhinitis due to pollen J30.1 [place] [id number] [place] [address] Aug, [facility] [address] [id number] Jul, Depression F32.9 and Shakes R25.[address] [facility] [address] [id number] Jun, Depression F32.9 [place] [address] [place] [id number] [place] [address] May, 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 [place] [address] [place] [id number] [place] [address] May, [place] [id number] [place] [address] March, Easy bruising R23.[address] [address] March, 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 [facility] [address] [place] [phone] March, Essential (primary) hypertension I10 ; Chronic [...] R05 and Dementia w behavior dist F03.91 [place] [address] [place] [id number] [place] [address]- [address] Feb, [place] [address] [place] [id number] [place] [address]- 6[address] Feb, Low back pain M54.5 [place] [address] [place] [id number] [place] [address]- [address] Jan, Cough R05 and Diarrhea R19.7 [place] [address] [place] [id number] [place] [address]14- 5558 Jan, [place] [address] [place] [id number] [place] [address]2840- 4111 Jan, Depression F32.9 and Dementia without behavioral disturbance , unspecified dementia type F03.90 [place] [address] [place] [id number] [place] [address]03- 28[address] Jan, [facility] [address] [place] [id number] Dec, Dementia without behavioral disturbance, unspecified dementia type F03.90 and Depression F32.9 [facility] [address] [place] [address] 69277- 0118 Dec, [facility] [address] [place] [address] 13405- 3553 Dec, [facility] [address] [place] [id number] [place] [address] 08833- 2204 Dec, [facility] [address] [place] [id number] [place] [address] 69456- 2511 Oct, [facility] [address] [place] [id number] Oct, Dementia without behavioral disturbance, unspecified dementia type F03.90 and Depression F32.9 [place] [address] [place] [id number] [place] [address] 24196- 8566 Jul, Cough 786.2 and Diarrhea 787.91 [facility] [address] [place] [id number] May, Depressive disorder, not elsewhere classified 311 [facility] [address] [place] [id number] [place] [address] 12235- 8527 March, Diarrhea 787.91 ; Depression 311 and Dementia 294.20 [facility] [address] [place] [address] 22075- 4958 Feb, [facility] [address] [place] [address] 36821- 9272 Feb, [facility] [address] [place] [id number] Jan, [facility] [address] [place] [id number] [place] [address] 82319- 9148 Jan, [facility] [address] [place] [address] 64649- 4943 Dec, [facility] [address] [place] [id number] [place] [address] 56238- 4163 Dec, [facility] [address] [id number] [place] [address] Dec, [facility] [address] [facility] [id number] Dec, [facility] [address] [id number] [place] [address] Aug, [facility] [address] [id number], [place] [address] Aug, [facility] [address] [id number] [place] [address]- [address]41 Aug, [facility] [address] [facility] [id number] Aug, [facility] [address] [id number], [place] [address] Jul, [facility] [address] [id number], [place] [address]- [address] Jul, [facility] [address] [facility] [id number] Jun, [facility] [address] [id number], [place] [address] Jun, [facility] [address] [id number], [place] [address] 2431 Jun, [facility] [address] [id number], [place] [address]- [address]57 Jun, [facility] [address] [id number], [place] [address]- 4710 Jun, [facility] [address] [id number] [place] [address]- 8425 Jun, [facility] [address] [facility] [id number] Jun, [facility] [address] [id number], [place] [address]- [address] Jun, [facility] [place] [facility] [address] [id number] [place] [address]- 8235 May, [facility] [place] [facility] [address] [id number] [place] [address]- [address]21 May, [facility] [place] [facility] [address] [id number] [place] [address]- 5055 May, [facility] [place] [facility] [address] [id number] [place] [address]- 5523 May, [facility] [place] [facility] [address] [id number] [place] [address]- 7026 May, [facility] [place] [facility] [address] [id number] [place] [address]- 0744 May, [facility] [address] [place] [id number] May, [facility] [place] [facility] [address] [id number] [place] [address]- 3756 May, [facility] [place] [facility] [address] [id number] [place] [address]- 0052 Apr, [facility] [place] [facility] [address] [id number] [place] [address]- 9105 Apr, [facility] [place] [facility] [address] [id number] [place] [address]- 6098 Apr, [facility] [place] [facility] [address] [id number] [place] [address]- 9108 Apr, [facility] [place] [facility] [address] [id number] [place] [address]- 6592 Apr, [facility] [place] [facility] [address] [id number] [place] [address]- 2381 Apr, [facility] [place] [facility] [address] [id number] [place] [address]- 4841 Apr, [facility] [place] [facility] [address] [id number] [place] [address]- 0448 Apr, [facility] [address] [facility] [id number], [place] [address]- [address]9 Apr, [facility] [address] [facility] [id number], [place] [address]- [address] Apr, [facility] [address] [place] [id number], [place] [address]- [address] Apr, [facility] [address] [facility] [id number], [place] [address]- [address] Apr, [facility] [address] [place] [id number] March, [facility] [address] [facility] [id number], [place] [address]- [address] March, [facility] [address] [place] [id number], [place] [address] March, [facility] [address], [place] [address]- [address] March, [facility] [address] [place] [id number], [place] [address]- 2021 March, [facility] [address] [id number], [place] [address]- [address] March, [facility] [address] [id number], [place] [address]- [address] Oct, [facility] [address] [place] [id number], [place] [address] Oct, IMMUNIZATIONS No Known Immunizations SOCIAL HISTORY Never Assessed REASON FOR VISIT hip pain PLAN OF CARE Activity Details Follow Up prn Reason: VITAL SIGNS MEDICATIONS Medication Instructions Dosage Frequency Start Date End Date Duration Status Magnesium Oxide 400 mg 1 Tablet by Oral route 3 times per day at 0800, 1200 , & 1700 March, Active Toprol XL 50 MG Orally Once a day 1 tablet 24h Active Lasix 40 TAKE ONE TABLET BY MOUTH ONCE A DAY 30 Active Cetirizine HCl 10 mg Orally Once a day 1 tablet 24h Active Multivitamin/Minerals Active Plavix 75 MG Orally Once a day 1 tablet 24h Active Senna 8.6 MG Orally Once a day 1 tablet as needed 24h March, Active Amlodipine Besylate 10 MG Orally Once a day 1 tablet 24h Active Tussin Cough 15 MG/5ML Orally every 4 hours 10 ml as needed for cough 4h Active Potassium Chloride ER 20 MEQ Orally 3 times a day 1 tablet 8h Active Losartan Potassium 100 MG Orally Once a day 1 tablet 24h Active Imodium A-D 2 MG Orally 8 time(s) a day 1 tablet as needed for Diarrhea Active Gabapentin 100 MG Orally Once a day 1 capsule 24h March, Active Trileptal 300 MG Orally Once a day 1 tablet at bedtime 24h Not- Taking Xarelto 10 MG Orally Once a day 1 tablet 24h Active Oxcarbazepine 300 Orally at bedtime 1 tablet Active Zoloft 100 MG Orally Once a day 1 tablet 24h Jun, Active Requip 1 MG Orally 2 times a day 1 tablet for restless leg syndrome 12h March, Active Exelon 6 MG Orally Twice a day 1 Capsule 12h Jun, Active Famotidine 20 mg Orally twice a day 1 tablet at bedtime 12h Active Gabapentin 100 MG Orally Once a day at HS 2 tablets Active Lactobacillus - Active Trazodone HCl 50 MG Orally Once a day 1 tablet at bedtime as needed 24h Active Tramadol HCl 50 mg Orally every 6 hrs 1 tablet as needed 6h Oct, 30 days Active Carbidopa-Levodopa 25-100 mg take 1 tablet by Oral route 2 times per day March, Active Ranitidine HCl 150 MG Orally twice a day 1 tablet 12h May, 90 days Not-Taking Melatonin 3 MG Orally at bedtime 3 tablets at bedtime Active Flonase 50 MCG/ACT Nasally twice a day 1 spray in each nostril 12h Jul, 30 day(s) Not-Taking Diltiazem CD 240 MG Orally Once a day 1 capsule 24h Active Lasix 40 mg Orally Once a day 1 tablet 24h March, Active Acetaminophen 325 MG Orally every 4 hours 2 tablets as needed for pain 4h Active Levothyroxine Sodium 125 MCG Orally Once a day 1 tablet 24h Active RESULTS No Results PROCEDURES Procedure Date Ordered Result Body Site Minor complication (15 mins) Nov 08, 2017 INSTRUCTIONS MEDICATIONS ADMINISTERED No Known Medications
--- OUTSIDE RECORDS SUMMARY | 2018-08-06 21:11 | XMS REPORT ---
Author Author BEVERLY BALLESTEROS [facility] Address [address] [place] [address] Care Team Providers Care Regulatory Submissions Specialist Name Role Phone BEVERLY BALLESTEROS Unavailable PROBLEMS Type Condition ICD9-CM Code WOC38-HR Code Onset Dates Condition Status SNOMED Code Problem Dementia without behavioral disturbance, unspecified dementia type F03.90 Active 44404657 Problem Depression F32.9 Active 78228505 Problem Bipolar disorder, unspecified F31.9 Active 52510778 Problem Hypokalemia E87.6 Active 12666847 Problem Type 2 diabetes mellitus without complications E11.9 Active 666902455 Problem Nausea and vomiting, unspecified intactability, vomiting of unspecified type R11.2 Active 13923979 Problem Essential (primary) hypertension I10 Active 55280718 Problem 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 Active 35249385 Problem Nausea R11.0 Active 430867713 Problem Subacute dyskinesia due to drug G24.01 Active 555377456 Problem Seasonal allergic rhinitis due to pollen J30.1 Active 48554289 Problem Diarrhea, unspecified type R19.7 Active 21259089 Problem Acute bilateral low back pain with left-sided sciatica M54.42 Active 391504719 Problem Sciatica, left side M54.32 Active 19649019 Problem Gastroesophageal reflux disease, esophagitis presence not specified K21.9 Active 838340241 Problem Constipation, unspecified constipation type K59.00 Active 93670801 Problem Cough R05 Active 63371275 Problem Primary insomnia F51.01 Active 6151054 Problem Poor appetite R63.0 Active 77328172 Problem Atrial fibrillation with RVR I48.91 Active 017319063157432 Problem Tongue pain K14.6 Active 59119869 Problem Restless leg syndrome G25.81 Active 38535716 Problem Neuropathy G62.9 Active 027984643 Problem Dizziness R42 Active 426319952 Problem Seasonal allergies J30.2 Active 620538517 Problem Pain R52 Active 75498488 Problem Hypothyroidism, unspecified type E03.9 Active 56407269 Problem Allergic rhinitis, unspecified J30.9 Active 03797288 Problem Chronic atrial fibrillation I48.2 Active 272891503 ALLERGIES No Information ENCOUNTERS Encounter Location Date Diagnosis [place] [address], [place] [address] May, [facility] [address] [place] [id number] May, Low back pain M54.5 [place] [address] [place] [id number] [place] [address]274[address] 6[address] May, [facility] [address] [place] [id number] Apr, Callus of foot L84 [place] [address] [place] [id number] [place] [address]1027- 8041 Apr, [facility] [address] [place] [id number] Apr, Acute bilateral low back pain with left-sided sciatica M54.42 [place] [address] [place] [id number] [place] [address]67320- 4514 Feb, [facility] [address] [place] [id number] Feb, Otalgia of right ear H92.01 [place] [address] [place] [id number] [place] [address] 90494- 9273 Jan, Cough R05 and Pain of left hip joint M25.552 [place] [address] [place] [id number] [place] [id number] Dec, [facility] [address] [place] [id number] Dec, Dementia without behavioral disturbance, unspecified dementia type F03.90 [place] [address] [place] [id number] [place] [address]7610- 4316 Nov, [facility] [address] [place] [id number] Oct, Sciatica, left side M54.32 [facility] [id number] [id number] Oct, Pain of left hip joint M25.[address] [facility] [address] [id number] Sep, Dementia without behavioral disturbance, unspecified dementia type F03.90 [place] [address] [place] [address] 28146- 2506 14 Jul, 2017 Atrial fibrillation with RVR I48.91 [facility] [address] [place] [id number] 12 Jul, 2017 Tongue pain K14.6 [place] [address] [place] [id number] [place] [address] [id number] 05 Jul, 2017 [place] [address] [place] [id number] [place] [id number] Jul, [facility] [address] [id number] Jun, Allergic rhinitis, unspecified J30.9 ; Poor appetite R63.0 and Primary insomnia F51.01 [place] [address], [place] [address] May, Gastroesophageal reflux disease, esophagitis presence not specified K21.9 [place] [id number] [id number] May, [facility] [address] [id number] Apr, Cervicalgia M54.2 and Depression F32.9 [place] [address] [place] [id number], [place] [address] Apr, [place] [address] [place] [id number] [place] [address] 36295- 4457 Apr, [place] [address], [place] [address] Apr, [facility] [address] [id number] Feb, Dementia without behavioral disturbance, unspecified dementia type F03.90 and Depression F32.9 [place] [address] [place] [address] 39967- 3400 Dec, [place] [address] [place] [id number] [place] [address] 38633- 0795 Dec, [place] [address] [place] [id number] [place] [address] 17778- 3721 Dec, [facility] [address] [id number] Dec, Upper respiratory tract infection, unspecified type J06.9 and Cellulitis of nose, external J34.0 [place] [id number] [place] [address] 25561- 6042 Nov, 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 [place] [id number] [place] [address] 72203- 3526 Oct, [place] [id number] [place] [address] 09953- 1485 Oct, Seasonal allergies J30.2 ; Dizziness R42 ; Nausea R11.0 and Cough R05 [facility] [address] [id number] Oct, Bipolar disorder, unspecified F31.9 [place] [id number] [place] [address] 65957- 0349 Oct, [facility] [address] [id number] Aug, Seasonal allergic rhinitis due to pollen J30.1 [place] [id number] [place] [address] 57286- 0600 Aug, [facility] [address] [id number] Jul, Depression F32.9 and Shakes R25.[address] [facility] [address] [id number] Jun, Depression F32.9 [place] [address], [place] [address] May, 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 [place] [address] [place] [id number] [place] [address] 38847- 2547 May, [place] [address] [place] [id number] [place] [address] 07472- 9134 March, Easy bruising R23.8 [place] [address] [place] [id number] [place] [address] 77301- 8330 March, 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 [facility] [place] [address] [place] [id number] March, Essential (primary) hypertension I10 ; Chronic [...] R05 and Dementia w behavior dist F03.91 [place] [address] [place] [address] 34068- 3968 Feb, [place] [address] [place] [id number] [place] [address] 38888- 0753 Feb, Low back pain M54.5 [place] [address] [place] [id number] [place] [address] 14469- 2027 Jan, Cough R05 and Diarrhea R19.7 [place] [address], [place] [address] Jan, [facility] [address] [place] [address] 10383- 5616 Jan, Depression F32.9 and Dementia without behavioral disturbance , unspecified dementia type F03.90 [facility] [address], [place] [address] Jan, [facility] [address] [id number] Dec, Dementia without behavioral disturbance, unspecified dementia type F03.90 and Depression F32.9 [place] [address] [place] [id number] [place] [address] 13721- 7993 Dec, [place] [address] [place] [id number] [place] [address] 66286- 3637 Dec, [place] [address] [place] [id number] [place] [address] 44208- 0800 Dec, [place] [address] [place] [address] 05785- 5043 Oct, [facility] [address] [id number] Oct, Dementia without behavioral disturbance, unspecified dementia type F03.90 and Depression F32.9 [place] [address] [place] [address] 82550- 2705 Jul, Cough 786.2 and Diarrhea 787.[address] [facility] [address] [id number] May, Depressive disorder, not elsewhere classified [address] [place] [address] [place] [id number] [place] [address] 94235- 2207 March, Diarrhea 787.91 ; Depression 311 and Dementia 294.20 [place] [address], [place] [address] Feb, [place] [address] [place] [id number] [address] Feb, [facility] [address] [facility] [id number] Jan, [facility] [address] [id number] [place] [address] Jan, [facility] [address] [id number], [place] [address]- 9890 Dec, [facility] [address] [id number], [place] [address] 6213 Dec, [facility] [address] [id number] [place] [address]- 7709 Dec, [facility] [address] [facility] [id number] Dec, [facility] [address] [id number], [place] [address] 4[address] Aug, [facility] [address] [id number], [place] [address]- 0140 Aug, [facility] [address] [id number], [place] [address]- [address] Aug, [facility] [address] [facility] [id number] Aug, [facility] [address] [id number], [place] [address]- 5148 Jul, [facility] [address] [id number], [place] [address]- 6919 Jul, [facility] [address] [place] [id number] Jun, [facility] [address] [id number] [place] [address]- 5142 Jun, [facility] [address] [id number], [place] [address]- 6781 Jun, [facility] [address] [id number], [place] [address]- 8505 Jun, [facility] [address] [id number] [place] [address]- 0699 Jun, [facility] [place] [facility] [address] [id number] [place] [address]- 9606 Jun, [facility] [address] [place] [id number] Jun, [facility] [place] [facility] [address] [id number] [place] [address]- 2951 Jun, [facility] [place] [facility] [address] [id number] [place] [address]- 1478 May, [facility] [place] [facility] [address] [id number] [place] [address]- 3755 May, [facility] [place] [facility] [address] [id number] [place] [address]- 9397 May, [facility] [place] [facility] [address] [id number] [place] [address]- 4083 May, [facility] [place] [facility] [address] [id number] [place] [address]- 0616 May, [facility] [place] [facility] [address] [id number] [place] [address]- 1471 May, [facility] [address] [place] [id number] May, [facility] [place] [facility] [address] [id number] [place] [address]- 1783 May, [facility] [place] [facility] [address] [id number] [place] [address]- 7556 Apr, [facility] [place] [facility] [address] [id number] [place] [address]- 3616 Apr, [facility] [place] [facility] [address] [id number] [place] [address]- 7889 Apr, [facility] [place] [facility] [address] [id number] [place] [address]- 5953 Apr, [facility] [place] [facility] [address] [id number] [place] [address]- 5416 Apr, [facility] [place] [facility] [address] [id number] [place] [address]- 9503 Apr, [facility] [place] [facility] [address] [id number] [place] [address]- 1668 Apr, [facility] [place] [facility] [address] [id number] [place] [address]- 3564 Apr, [facility] [place] [facility] [address] [id number] [place] [address]- 1622 Apr, [facility] [place] [facility] [address] [id number] [place] [address]- 1688 Apr, [facility] [place] [facility] [address] [id number] [place] [address]- 5988 Apr, [facility] [place] [facility] [address] [id number] [place] [address]- 3641 Apr, [facility] [address] [place] [id number] March, [facility] [place] [facility] [address] [id number], [place] [address]- 3949 March, [facility] [place] [facility] [address] [id number], [place] [address]- 1024 March, [facility] [place] [facility] [address] [id number], [place] [address]- 5087 March, [facility] [place] [facility] [address] [id number] [place] [address]- 5395 March, [facility] [place] [facility] [address] [id number] [place] [address]- 4085 March, [facility] [place] [facility] [address] [id number], [place] [address]- 0362 Oct, [facility] [place] [facility] [address] [id number] Oct, IMMUNIZATIONS No Known Immunizations SOCIAL HISTORY Never Assessed REASON FOR VISIT Biofreeze order PLAN OF CARE VITAL SIGNS MEDICATIONS Medication Instructions Dosage Frequency Start Date End Date Duration Status Biofreeze 4 % Externally every 4 hrs as needed 1 application to affected area as needed Feb, Active RESULTS No Results PROCEDURES No Known procedures INSTRUCTIONS MEDICATIONS ADMINISTERED No Known Medications MEDICAL (GENERAL) HISTORY Type Description Date Medical 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
--- OUTSIDE RECORDS SUMMARY | 2018-08-06 21:12 | XMS REPORT ---
Author Author BEVERLY BALLESTEROS [facility] Address [address] [place] [address] Care Team Providers Care Emergency Veterinary Technician Name Role Phone BEVERLY BALLESTEROS Unavailable PROBLEMS Type Condition ICD9-CM Code PEQ69-KA Code Onset Dates Condition Status SNOMED Code Problem Dementia without behavioral disturbance, unspecified dementia type F03.90 Active 50540127 Problem Depression F32.9 Active 88367044 Problem Bipolar disorder, unspecified F31.9 Active 17855766 Problem Hypokalemia E87.6 Active 64947170 Problem Hypothyroidism, unspecified type E03.9 Active 09547609 Problem Type 2 diabetes mellitus without complications E11.9 Active 028470795 Problem Nausea and vomiting, unspecified intactability, vomiting of unspecified type R11.2 Active 88046923 Problem Essential (primary) hypertension I10 Active 44924176 Problem 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 Active 96497781 Problem Diarrhea, unspecified type R19.7 Active 15373153 Problem Subacute dyskinesia due to drug G24.01 Active 950213463 Problem Sciatica, left side M54.32 Active 59531858 Problem Atrial fibrillation with RVR I48.91 Active 224683875670927 Problem Constipation, unspecified constipation type K59.00 Active 52297857 Problem Cough R05 Active 56208732 Problem Nausea R11.0 Active 343754803 Problem Poor appetite R63.0 Active 70329630 Problem Seasonal allergic rhinitis due to pollen J30.1 Active 74802148 Problem Tongue pain K14.6 Active 83517826 Problem Primary insomnia F51.01 Active 9150069 Problem Seasonal allergies J30.2 Active 819805129 Problem Restless leg syndrome G25.81 Active 78809481 Problem Gastroesophageal reflux disease, esophagitis presence not specified K21.9 Active 500253031 Problem Dizziness R42 Active 358813769 Problem Chronic atrial fibrillation I48.2 Active 137801841 Problem Pain R52 Active 99150286 Problem Neuropathy G62.9 Active 753937436 Problem Allergic rhinitis, unspecified J30.9 Active 16940803 ALLERGIES No Information ENCOUNTERS Encounter Location Date Diagnosis [place] [address] [place] [address]643- 9641 Feb, [facility] [address] [id number] Feb, Otalgia of right ear H92.01 [place] [address] [place] [id number] [place] [address] 99402- 3840 Jan, Cough R05 and Pain of left hip joint M25.552 [place] [address] [place] [id number] [place] [address] [id number] Dec, [facility] [address] [id number] Dec, Dementia without behavioral disturbance, unspecified dementia type F03.90 [place] [address] [place] [id number] [place] [address] 49887- 0677 Nov, [facility] [place] [address] [place] [id number] Oct, Sciatica, left side M54.32 [place] [address] [place] [id number] [place] [address] [id number] Oct, Pain of left hip joint M25.[address] [id number] Sep, Dementia without behavioral disturbance, unspecified dementia type F03.90 [place] [address] [place] [address] 35917- 6446 14 Jul, 2017 Atrial fibrillation with RVR I48.[address] [facility] [address] [id number] Jul, Tongue pain K14.6 [place] [address] [place] [id number] [place] [address] [id number] Jul, [place] [address] [place] [id number] [place] [address] [id number] Jul, [facility] [address] [place] [id number] Jun, Allergic rhinitis, unspecified J30.9 ; Poor appetite R63.0 and Primary insomnia F51.01 [place] [address] [place] [id number] [place] [address] [id number] May, Gastroesophageal reflux disease, esophagitis presence not specified K21.9 [facility] [address] [place] [address] [id number] [place] [address] [id number] May, [facility] [address] [id number] Apr, Cervicalgia M54.2 and Depression F32.9 [place] [address] [address]- [address] Apr, [place] [address] [place] [id number] [place] [address] 12177- 9317 Apr, [place] [address] 0[address]51- 8974 Apr, [facility] [address] [id number] Feb, Dementia without behavioral disturbance, unspecified dementia type F03.90 and Depression F32.9 [place] [address] [place] [id number] [place] [address] 15290- 7035 24 Dec, 2016 [place] [address] [place] [id number] [place] [address] 59354- 8683 Dec, [facility] [address] [place] [id number] [place] [address] 93022- 5831 14 Dec, 2016 [facility] [place] [address] [place] [id number] Dec, Upper respiratory tract infection, unspecified type J06.9 and Cellulitis of nose, external J34.0 [place] [address] [place] [address] 63220- 3868 Nov, 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 [place] [address] [place] [address] Oct, [place] [address] [place] [id number] [place] [address] 33047- 1134 Oct, Seasonal allergies J30.2 ; Dizziness R42 ; Nausea R11.0 and Cough R05 [facility] [address] [id number] Oct, Bipolar disorder, unspecified F31.9 [place] [address] 84546- 7466 Oct, [facility] [address] [id number] Aug, Seasonal allergic rhinitis due to pollen J30.1 [place] [address] [place] [id number] [place] [address] 46498- 3120 Aug, [facility] [address] [id number] Jul, Depression F32.9 and Shakes R25.[address] [facility] [address] [id number] Jun, Depression F32.9 [place] [address] [place] [id number] [place] [address] 14143- 1910 May, 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 [place] [address] [place] [id number] [place] [address] 72499- 5180 May, [place] [address] [place] [id number] [place] [address] 19021- 7750 March, Easy bruising R23.8 [place] [address] [place] [id number] [place] [address] 28581- 8300 March, 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 [facility] [address] [id number] March, Essential (primary) hypertension I10 ; Chronic [...] Dementia w behavior dist F03.91 [place] [address] 76857- 9445 14 Feb, 2016 [place] [address] 15963- 0474 Feb, Low back pain M54.5 [place] [address] 95653- 9609 Jan, Cough R05 and Diarrhea R19.7 [place] [address] 88004- 7793 Jan, [place] [address] 65955- 9358 Jan, Depression F32.9 and Dementia without behavioral disturbance , unspecified dementia type F03.90 [place] [address] [place] [id number] [place] [address] 28333- 7647 08 Jan, 2016 [facility] [address] [place] [id number] Dec, Dementia without behavioral disturbance, unspecified dementia type F03.90 and Depression F32.9 [place] [address] [place] [id number] [place] [address] 88385- 9438 Dec, [place] [address] 60469- 1557 Dec, [facility] [address] [address] 2969 Dec, [facility] [address] [place] [id number] [place] [address] 01353- 7686 Oct, [facility] [place] [address] [place] [id number] Oct, Dementia without behavioral disturbance, unspecified dementia type F03.90 and Depression F32.9 [facility] [address] [place] [id number] [place] [address] 07561- 5179 Jul, Cough 786.2 and Diarrhea 787.91 [facility] [place] [address] [place] [id number] May, Depressive disorder, not elsewhere classified [address] [place] [address] [place] [id number] [place] [address] 82274- 0583 March, Diarrhea 787.91 ; Depression 311 and Dementia 294.20 [facility] [address] [place] [address] 33682- 9166 Feb, [facility] [address] [place] [id number] [place] [address] 69313- 4724 Feb, [facility] [place] [address] [place] [id number] Jan, [facility] [address] [address] 2348 Jan, [facility] [address] [place] [address] 96687- 7108 Dec, [facility] [address] [address]- 3985 Dec, [facility] [address] [place] [address] 93931- 7546 Dec, [facility] [place] [address] [place] [id number] Dec, [facility] [address] [place] [address] 05432- 9320 Aug, [facility] [address] [id number] [place] [address] 2026 Aug, [facility] [address] [id number] [place] [address] 4096 Aug, [facility] [place] [address] [facility] [id number] Aug, [facility] [address] [id number] [place] [address]- 2171 Jul, [facility] [address] [id number] [place] [address]- 4844 Jul, [facility] [place] [address] [facility] [id number] Jun, [facility] [address] [id number] [place] [address]- 3504 Jun, [facility] [address] [id number] [place] [address]- 2575 Jun, [facility] [address] [id number] [place] [address]- 7642 Jun, [facility] [address] [id number] [place] [address]- 6609 Jun, [facility] [address] [id number] [place] [address]- 5034 Jun, [facility] [place] [address] [facility] [id number] Jun, [facility] [address] [id number] [place] [address]- 1753 Jun, [facility] [place] [facility] [address] [id number] [place] [address]- 2754 May, [facility] [address] [id number] [place] [address]- 3696 May, [facility] [address] [id number] [place] [address]- 1917 May, [facility] [place] [facility] [address] [id number] [place] [address]- 4474 May, [facility] [place] [facility] [address] [id number] [place] [address]- 3977 May, [facility] [place] [facility] [address] [id number] [place] [address]- 9789 May, [facility] [address] [facility] [id number] May, [facility] [place] [facility] [address] [id number] [place] [address]- 0574 May, [facility] [place] [facility] [address] [id number] [place] [address]- 3541 Apr, [facility] [place] [facility] [address] [id number] [place] [address]- 0146 Apr, [facility] [place] [facility] [address] [id number] [place] [address]- 5385 Apr, [facility] [place] [facility] [address] [id number] [place] [address]- 0203 Apr, [facility] [place] [facility] [address] [id number] [place] [address]- 0538 Apr, [facility] [place] [facility] [address] [id number] [place] [address]- 0521 Apr, [facility] [place] [facility] [address] [id number] [place] [address]- 8817 Apr, [facility] [place] [facility] [address] [id number] [place] [address]- 7492 Apr, [facility] [place] [facility] [address] [id number] [place] [address]- 3545 Apr, [facility] [place] [facility] [address] [id number] [place] [address]- 5196 Apr, [facility] [place] [facility] [address] [id number] [place] [address]- 2546 Apr, [facility] [address] [facility] [id number] [address]- 9684 Apr, [facility] [place] [address] [place] [id number] March, [facility] [address] [facility] [id number] [address]- 4859 March, [facility] [address] [place] [id number] [address]- 8419 March, [facility] [address] [facility] [id number] [address]- 7541 March, [facility] [address] [address]- 8435 March, [facility] [address] [place] [id number] [address]- 3094 March, [facility] [address] [place] [id number] [address]- 9505 Oct, [facility] [address] [facility] [id number] [place] [address]- 5469 Oct, IMMUNIZATIONS No Known Immunizations SOCIAL HISTORY Never Assessed REASON FOR VISIT Sore in mouth PLAN OF CARE Activity Details Follow Up prn Reason: VITAL SIGNS MEDICATIONS Medication Instructions Dosage Frequency Start Date End Date Duration Status Losartan Potassium 100 MG Orally Once a day 1 tablet 24h Active Diltiazem CD 240 MG Orally Once a day 1 capsule 24h Active Carbidopa-Levodopa 25-100 mg take 1 tablet by Oral route 2 times per day March, Active Trazodone HCl 50 MG Orally Once a day 1 tablet at bedtime as needed 24h Active Acetaminophen 325 MG Orally every 4 hours 2 tablets as needed for pain 4h Active Senna 8.6 MG Orally Once a day 1 tablet as needed 24h March, Active Potassium Chloride ER 20 MEQ Orally 3 times a day 1 tablet 8h Active Gabapentin 100 MG Orally Once a day at HS 2 tablets Active Plavix 75 MG Orally Once a day 1 tablet 24h Active Tussin Cough 15 MG/5ML Orally every 4 hours 10 ml as needed for cough 4h Active Magnesium Oxide 400 mg 1 Tablet by Oral route 3 times per day at 0800, 1200 , & 1700 March, Active Exelon 6 MG Orally Twice a day 1 Capsule 12h Jun, Active Toprol XL 50 MG Orally Once a day 1 tablet 24h Active Oxcarbazepine 300 Orally at bedtime 1 tablet Active Melatonin 3 MG Orally at bedtime 3 tablets at bedtime Active Requip 1 MG Orally 2 times a day 1 tablet for restless leg syndrome 12h March, Active Imodium A-D 2 MG Orally 8 time(s) a day 1 tablet as needed for Diarrhea Active Multivitamin/Minerals Active Xarelto 10 MG Orally Once a day 1 tablet 24h Active Cetirizine HCl 10 mg Orally Once a day 1 tablet 24h Active Famotidine 20 mg Orally twice a day 1 tablet at bedtime 12h Active Levothyroxine Sodium 125 MCG Orally Once a day 1 tablet 24h Active Amlodipine Besylate 10 MG Orally Once a day 1 tablet 24h Active Zoloft 100 MG Orally Once a day 1 tablet 24h Jun, Active Lasix 40 mg Orally Once a day 1 tablet 24h March, Active Lactobacillus - Active Gabapentin 100 MG Orally Once a day 1 capsule 24h March, Active RESULTS No Results PROCEDURES Procedure Date Ordered Result Body Site Stable Visit (10 minutes) Jul 26, 2017 INSTRUCTIONS MEDICATIONS ADMINISTERED No Known Medications
--- OUTSIDE RECORDS SUMMARY | 2018-08-06 21:12 | XMS REPORT ---
Author Author BEVERLY BALLESTEROS [facility] Address [address] [place] [address] Care Team Providers Care Tower Erector Helper Name Role Phone BEVERLY BALLESTEROS Unavailable PROBLEMS Type Condition ICD9-CM Code GSU27-CB Code Onset Dates Condition Status SNOMED Code Problem Dementia without behavioral disturbance, unspecified dementia type F03.90 Active 79044865 Problem Depression F32.9 Active 39117283 Problem Bipolar disorder, unspecified F31.9 Active 50131565 Problem Hypokalemia E87.6 Active 33465538 Problem Hypothyroidism, unspecified type E03.9 Active 21959890 Problem Type 2 diabetes mellitus without complications E11.9 Active 371190421 Problem Nausea and vomiting, unspecified intactability, vomiting of unspecified type R11.2 Active 25648333 Problem Essential (primary) hypertension I10 Active 93099500 Problem 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 Active 94365686 Problem Diarrhea, unspecified type R19.7 Active 04653591 Problem Subacute dyskinesia due to drug G24.01 Active 233357207 Problem Sciatica, left side M54.32 Active 82400524 Problem Atrial fibrillation with RVR I48.91 Active 404608371240452 Problem Constipation, unspecified constipation type K59.00 Active 22332422 Problem Cough R05 Active 03861602 Problem Nausea R11.0 Active 893845977 Problem Poor appetite R63.0 Active 33444339 Problem Seasonal allergic rhinitis due to pollen J30.1 Active 48525258 Problem Tongue pain K14.6 Active 81502690 Problem Primary insomnia F51.01 Active 9579305 Problem Seasonal allergies J30.2 Active 705775705 Problem Restless leg syndrome G25.81 Active 84168863 Problem Gastroesophageal reflux disease, esophagitis presence not specified K21.9 Active 758130188 Problem Dizziness R42 Active 633234758 Problem Chronic atrial fibrillation I48.2 Active 585316443 Problem Pain R52 Active 31605394 Problem Neuropathy G62.9 Active 107385659 Problem Allergic rhinitis, unspecified J30.9 Active 15677273 ALLERGIES No Information ENCOUNTERS Encounter Location Date Diagnosis [place] [address] [place] [address] 637155- 0781 Jan, Cough R05 and Pain of left hip joint M25.552 [place] [address] [place] [id number] [place] [address] [id number] Dec, [facility] [address] [id number] Dec, Dementia without behavioral disturbance, unspecified dementia type F03.90 [place] [address] [place] [id number] [place] [address] 01954- 3816 Nov, [facility] [address] [id number] Oct, Sciatica, left side M54.32 [place] [address] [id number] Oct, Pain of left hip joint M25.[address] [facility] [address] [id number] Sep, Dementia without behavioral disturbance, unspecified dementia type F03.90 [place] [address] [place] [address] 168982- 8846 Jul, Atrial fibrillation with RVR I48.[address] [facility] [address] [id number] Jul, Tongue pain K14.6 [place] [address] [place] [id number] [place] [address] [id number] Jul, [place] [address] [place] [id number] [place] [address] [id number] Jul, [facility] [address] [id number] Jun, Allergic rhinitis, unspecified J30.9 ; Poor appetite R63.0 and Primary insomnia F51.01 [place] [address] [place] [id number] [place] [address] 70484- 5701 May, Gastroesophageal reflux disease, esophagitis presence not specified K21.9 [facility] [address] [place] [id number] [place] [address] [id number] May, [facility] [place] [address] [place] [id number] Apr, Cervicalgia M54.2 and Depression F32.9 [place] [address] [address]- 7288 Apr, [place] [address] [place] [id number] [place] [address] 38405- 4269 Apr, [place] [address] 05324- 5530 Apr, [facility] [place] [address] [place] [id number] Feb, Dementia without behavioral disturbance, unspecified dementia type F03.90 and Depression F32.9 [place] [address] [place] [id number] [place] [address] 48882- 7892 Dec, [place] [address] [place] [id number] [place] [address] 66070- 5680 Dec, [place] [address] [place] [id number] [place] [address] 78750- 6908 Dec, [facility] [address] [id number] Dec, Upper respiratory tract infection, unspecified type J06.9 and Cellulitis of nose, external J34.0 [place] [address] [place] [id number] [place] [address] 21606- 8011 Nov, 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 [place] [address] [place] [id number] [place] [address] 03620- 0538 Oct, [place] [address] [place] [id number] [place] [address] 71371- 1724 Oct, Seasonal allergies J30.2 ; Dizziness R42 ; Nausea R11.0 and Cough R05 [facility] [address] [id number] Oct, Bipolar disorder, unspecified F31.9 [address] [place] [address] 13278- 3786 Oct, [facility] [address] [id number] Aug, Seasonal allergic rhinitis due to pollen J30.1 [place] [id number] [place] [address] 56111- 3869 Aug, [facility] [address] [id number] Jul, Depression F32.9 and Shakes R25.[address] [facility] [address] [id number] Jun, Depression F32.9 [place] [id number] [place] [address] 66034- 2423 May, 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 [place] [address] [place] [id number] [place] [address] 68912- 6487 May, [place] [id number] [place] [address] 85747- 3477 March, Easy bruising R23.8 [place] [id number] [place] [address] 27504- 1763 March, 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 [facility] [address] [id number] March, Essential (primary) hypertension I10 ; Chronic [...] R05 and Dementia w behavior dist F03.91 [place] [address] 49075- 3618 14 Feb, 2016 [place] [address] 09559- 1636 12 Feb, 2016 Low back pain M54.[address] 19453- 3143 31 Jan, 2016 Cough R05 and Diarrhea R19.[address] 56656- 4067 Jan, [place] [address] 72290- 2023 Jan, Depression F32.9 and Dementia without behavioral disturbance , unspecified dementia type F03.90 [place] [address] [place] [id number] [place] [address] 44277- 7577 08 Jan, [facility] [address] [place] [id number] Dec, Dementia without behavioral disturbance, unspecified dementia type F03.90 and Depression F32.9 [place] [address] [place] [id number] [place] [address] 68540- 8392 Dec, [place] [address] [place] [id number] [place] [address] 68045- 2240 Dec, [place] [address] [place] [id number] [place] [address] 78915- 1790 Dec, [place] [address] [place] [id number] [place] [address] 62183- 1970 Oct, [facility] [place] [address] [place] [id number] Oct, Dementia without behavioral disturbance, unspecified dementia type F03.90 and Depression F32.9 [facility] [address] [place] [id number] [place] [address] 93123- 3526 Jul, Cough 786.2 and Diarrhea 787.91 [facility] [place] [address] [place] [id number] May, Depressive disorder, not elsewhere classified 311 [facility] [address] [place] [id number] [place] [address] 51674- 1606 March, Diarrhea 787.91 ; Depression 311 and Dementia 294.20 [facility] [address] [place] [id number] [place] [address] 95950- 5216 Feb, [facility] [address] [place] [id number] [place] [address] 49372- 0484 Feb, [facility] [place] [address] [place] [id number] Jan, [facility] [address] [place] [id number] [place] [address] 657115- 6414 Jan, [facility] [address] [place] [id number] [place] [address] 33975- 3142 Dec, [facility] [address] [place] [id number] [place] [address] 43071- 4953 Dec, [facility] [address] [place] [id number] [place] [address] 86363- 6066 Dec, [facility] [place] [address] [place] [id number] Dec, [facility] [address] [place] [id number] [place] [address] 72788- 0956 Aug, [facility] [address] [place] [id number] [place] [address] 76237- 3956 Aug, [facility] [address] [place] [id number] [place] [address] [id number]- 8728 Aug, [facility] [address] [facility] [place] [id number] Aug, [facility] [address] [id number] [place] [address]- 3211 Jul, [facility] [address] [id number] [place] [address]- 2603 Jul, [facility] [address] [facility] [place] [id number] Jun, [facility] [address] [id number] [place] [address]- 9692 Jun, [facility] [address] [id number] [place] [address]- 0331 Jun, [facility] [address] [id number] [place] [address]- 4375 Jun, [facility] [place] [facility] [address] [id number] [place] [address]- 3201 Jun, [facility] [address] [id number] [place] [address]- 2035 Jun, [facility] [address] [facility] [place] [id number] Jun, [facility] [address] [id number] [place] [address]- 6402 Jun, [facility] [place] [facility] [address] [id number] [place] [address]- 3549 May, [facility] [place] [facility] [address] [id number] [place] [address]- 9865 May, [facility] [place] [facility] [address] [id number] [place] [address]- 2574 May, [facility] [place] [facility] [address] [id number] [place] [address] May, [facility] [place] [facility] [address] [id number] [place] [address]- 6186 May, [facility] [place] [facility] [address] [id number] [place] [address]- 3032 May, [facility] [address] [place] [id number] May, [facility] [place] [facility] [address] [id number] [place] [address]- 6899 May, [facility] [place] [facility] [address] [id number] [place] [address]- 9623 Apr, [facility] [place] [facility] [address] [id number] [place] [address]- 3963 Apr, [facility] [place] [facility] [address] [id number] [place] [address]- 0503 Apr, [facility] [place] [facility] [address] [id number] [place] [address]- 7637 Apr, [facility] [place] [facility] [address] [id number] [place] [address]- 1778 Apr, [facility] [place] [facility] [address] [id number] [place] [address]- 2593 Apr, [facility] [place] [facility] [address] [id number] [place] [address]- 3568 Apr, [facility] [place] [facility] [address] [id number] [place] [address]- 3399 Apr, [facility] [place] [facility] [address] [id number] [place] [address]- 3281 Apr, [facility] [place] [facility] [address] [id number] [place] [address]- 5885 Apr, [facility] [place] [facility] [address] [id number] [place] [address]- 5807 Apr, [facility] [place] [facility] [address] [id number] [place] [address]- 0811 Apr, [facility] [address] [place] [id number] March, [facility] [address] [facility] [id number] [address]- 7760 March, [facility] [address] [facility] [id number] [address]- 4876 March, [facility] [address] [facility] [id number], [place] [address]- 0423 March, [facility] [address] [id number] [address]- 2252 March, [facility] [address] [id number] [address]- 5465 March, [facility] [address] [id number] [address]- 1471 Oct, [facility] [address] [id number] [address]- 4405 Oct, IMMUNIZATIONS No Known Immunizations SOCIAL HISTORY Never Assessed REASON FOR VISIT Chest pains PLAN OF CARE VITAL SIGNS MEDICATIONS Unknown Medications RESULTS No Results PROCEDURES No Known procedures INSTRUCTIONS MEDICATIONS ADMINISTERED No Known Medications
--- OUTSIDE RECORDS SUMMARY | 2018-08-06 21:12 | XMS REPORT ---
Author Author BEVERLY BALLESTEROS [facility] Address [address] [place] [address] Care Team Providers Care Professor Of Floriculture Name Role Phone BEVERLY BALLESTEROS Unavailable PROBLEMS Type Condition ICD9-CM Code WBB95-WO Code Onset Dates Condition Status SNOMED Code Problem Dementia without behavioral disturbance, unspecified dementia type F03.90 Active 03825189 Problem Depression F32.9 Active 54214668 Problem Bipolar disorder, unspecified F31.9 Active 64341228 Problem Hypothyroidism, unspecified type E03.9 Active 81682573 Problem Hypokalemia E87.6 Active 28012174 Problem Nausea and vomiting, unspecified intactability, vomiting of unspecified type R11.2 Active 56410570 Problem Type 2 diabetes mellitus without complications E11.9 Active 639294957 Problem 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 Active 86365386 Problem Subacute dyskinesia due to drug G24.01 Active 533554009 Problem Pain R52 Active 48804327 Problem Atrial fibrillation with RVR I48.91 Active 174330633310272 Problem Tongue pain K14.6 Active 51937590 Problem Cough R05 Active 08174298 Problem Nausea R11.0 Active 326966128 Problem Essential (primary) hypertension I10 Active 58295146 Problem Seasonal allergic rhinitis due to pollen J30.1 Active 52491974 Problem Diarrhea, unspecified type R19.7 Active 76455916 Problem Primary insomnia F51.01 Active 0944611 Problem Poor appetite R63.0 Active 14932573 Problem Constipation, unspecified constipation type K59.00 Active 14745041 Problem Gastroesophageal reflux disease, esophagitis presence not specified K21.9 Active 106683207 Problem Allergic rhinitis, unspecified J30.9 Active 11618715 Problem Chronic atrial fibrillation I48.2 Active 494027790 Problem Restless leg syndrome G25.81 Active 37177964 Problem Neuropathy G62.9 Active 210994293 Problem Dizziness R42 Active 025974359 Problem Seasonal allergies J30.2 Active 934191037 ALLERGIES No Information SOCIAL HISTORY Never Assessed PLAN OF CARE Activity Details Follow Up prn Reason: VITAL SIGNS MEDICATIONS Unknown Medications RESULTS No Results PROCEDURES Procedure Date Ordered Result Body Site Stable Visit (10 minutes) February 22, 2017 IMMUNIZATIONS No Known Immunizations
--- OUTSIDE RECORDS SUMMARY | 2018-08-06 21:13 | XMS REPORT ---
Author Author BEVERLY BALLESTEROS [facility] Address [address] [place] [address] Care Team Providers Care Rotary Lithographic Press Operator Name Role Phone BEVERLY BALLESTEROS Unavailable PROBLEMS Type Condition ICD9-CM Code ABL61-IP Code Onset Dates Condition Status SNOMED Code Problem Dementia without behavioral disturbance, unspecified dementia type F03.90 Active 52845872 Problem Depression F32.9 Active 43101986 Problem Bipolar disorder, unspecified F31.9 Active 40197549 Problem Hypothyroidism, unspecified type E03.9 Active 59799377 Problem Hypokalemia E87.6 Active 59758677 Problem Nausea and vomiting, unspecified intactability, vomiting of unspecified type R11.2 Active 75781621 Problem Type 2 diabetes mellitus without complications E11.9 Active 210470347 Problem 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 Active 25963296 Problem Subacute dyskinesia due to drug G24.01 Active 601137074 Problem Pain R52 Active 06950892 Problem Atrial fibrillation with RVR I48.91 Active 185641775017527 Problem Tongue pain K14.6 Active 82869429 Problem Cough R05 Active 17829666 Problem Nausea R11.0 Active 734927323 Problem Essential (primary) hypertension I10 Active 09683427 Problem Seasonal allergic rhinitis due to pollen J30.1 Active 76713734 Problem Diarrhea, unspecified type R19.7 Active 45187436 Problem Primary insomnia F51.01 Active 9244835 Problem Poor appetite R63.0 Active 30369316 Problem Constipation, unspecified constipation type K59.00 Active 13183996 Problem Gastroesophageal reflux disease, esophagitis presence not specified K21.9 Active 560081764 Problem Allergic rhinitis, unspecified J30.9 Active 08709903 Problem Chronic atrial fibrillation I48.2 Active 960189425 Problem Restless leg syndrome G25.81 Active 30652338 Problem Neuropathy G62.9 Active 829212683 Problem Dizziness R42 Active 683317782 Problem Seasonal allergies J30.2 Active 274986925 ALLERGIES No Information SOCIAL HISTORY Never Assessed PLAN OF CARE VITAL SIGNS MEDICATIONS Unknown Medications RESULTS No Results PROCEDURES No Known procedures IMMUNIZATIONS No Known Immunizations
--- OUTSIDE RECORDS SUMMARY | 2018-08-06 21:13 | XMS REPORT ---
Author Author BEVERLY BALLESTEROS [facility] Address [address] [place] [address] Care Team Providers Care Weed Cooking Operator Name Role Phone BEVERLY BALLESTEROS Unavailable PROBLEMS Type Condition ICD9-CM Code FYB69-UQ Code Onset Dates Condition Status SNOMED Code Problem Dementia without behavioral disturbance, unspecified dementia type F03.90 Active 02416587 Problem Depression F32.9 Active 10815327 Problem Bipolar disorder, unspecified F31.9 Active 14671952 Problem Hypothyroidism, unspecified type E03.9 Active 06813269 Problem Hypokalemia E87.6 Active 09486000 Problem Nausea and vomiting, unspecified intactability, vomiting of unspecified type R11.2 Active 68504117 Problem Type 2 diabetes mellitus without complications E11.9 Active 102480682 Problem 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 Active 42515808 Problem Subacute dyskinesia due to drug G24.01 Active 806495092 Problem Pain R52 Active 87288857 Problem Atrial fibrillation with RVR I48.91 Active 717772662256783 Problem Tongue pain K14.6 Active 39688300 Problem Cough R05 Active 84774231 Problem Nausea R11.0 Active 506890468 Problem Essential (primary) hypertension I10 Active 47543457 Problem Seasonal allergic rhinitis due to pollen J30.1 Active 65029659 Problem Diarrhea, unspecified type R19.7 Active 25870802 Problem Primary insomnia F51.01 Active 3704906 Problem Poor appetite R63.0 Active 94432289 Problem Constipation, unspecified constipation type K59.00 Active 24741671 Problem Gastroesophageal reflux disease, esophagitis presence not specified K21.9 Active 242427868 Problem Allergic rhinitis, unspecified J30.9 Active 82179499 Problem Chronic atrial fibrillation I48.2 Active 516688072 Problem Restless leg syndrome G25.81 Active 34777310 Problem Neuropathy G62.9 Active 782116410 Problem Dizziness R42 Active 136349792 Problem Seasonal allergies J30.2 Active 883605262 ALLERGIES No Information SOCIAL HISTORY Never Assessed PLAN OF CARE VITAL SIGNS MEDICATIONS Unknown Medications RESULTS No Results PROCEDURES No Known procedures IMMUNIZATIONS No Known Immunizations
--- OUTSIDE RECORDS SUMMARY | 2018-08-06 21:13 | XMS REPORT ---
Author Author BEVERLY BALLESTEROS [facility] Address [address] [place] [address] Care Team Providers Care Gas Tester Name Role Phone BEVERLY BALLESTEROS Unavailable PROBLEMS Type Condition ICD9-CM Code MSI19-OK Code Onset Dates Condition Status SNOMED Code Problem Dementia without behavioral disturbance, unspecified dementia type F03.90 Active 50142365 Problem Depression F32.9 Active 85770988 Problem Bipolar disorder, unspecified F31.9 Active 34904098 Problem Hypokalemia E87.6 Active 86430183 Problem Hypothyroidism, unspecified type E03.9 Active 35739335 Problem Type 2 diabetes mellitus without complications E11.9 Active 112510622 Problem Nausea and vomiting, unspecified intactability, vomiting of unspecified type R11.2 Active 88588469 Problem Essential (primary) hypertension I10 Active 17288570 Problem 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 Active 64535087 Problem Diarrhea, unspecified type R19.7 Active 35937083 Problem Subacute dyskinesia due to drug G24.01 Active 804475162 Problem Sciatica, left side M54.32 Active 85460080 Problem Atrial fibrillation with RVR I48.91 Active 601198295696245 Problem Constipation, unspecified constipation type K59.00 Active 02206844 Problem Cough R05 Active 40119428 Problem Nausea R11.0 Active 189226650 Problem Poor appetite R63.0 Active 31934696 Problem Seasonal allergic rhinitis due to pollen J30.1 Active 75397153 Problem Tongue pain K14.6 Active 46917738 Problem Primary insomnia F51.01 Active 4149897 Problem Seasonal allergies J30.2 Active 003023860 Problem Restless leg syndrome G25.81 Active 37461838 Problem Gastroesophageal reflux disease, esophagitis presence not specified K21.9 Active 179656876 Problem Dizziness R42 Active 461096637 Problem Chronic atrial fibrillation I48.2 Active 861278859 Problem Pain R52 Active 83712985 Problem Neuropathy G62.9 Active 083771121 Problem Allergic rhinitis, unspecified J30.9 Active 89803162 ALLERGIES No Information ENCOUNTERS Encounter Location Date Diagnosis [facility] [address], [place] [id number] Feb, Otalgia of right ear H92.01 [place] [id number] [address] Jan, Cough R05 and Pain of left hip joint M25.552 [place] [id number] [place] [id number] Dec, [facility] [address] [id number] Dec, Dementia without behavioral disturbance, unspecified dementia type F03.90 [place] [address], [place] [address] Nov, [facility] [address] [id number] Oct, Sciatica, left side M54.32 [place] [id number] [id number] Oct, Pain of left hip joint M25.[address] [id number] Sep, Dementia without behavioral disturbance, unspecified dementia type F03.90 [place] [id number] [address] 14 Jul, 2017 Atrial fibrillation with RVR I48.[address] [facility] [address] [id number] 12 Jul, 2017 Tongue pain K14.6 [place] [id number] [place] [id number] Jul, [place] [id number] [place] [address] [id number] Jul, [facility] [address] [id number] Jun, Allergic rhinitis, unspecified J30.9 ; Poor appetite R63.0 and Primary insomnia F51.01 [facility] [address] [place] [address] May, Gastroesophageal reflux disease, esophagitis presence not specified K21.9 [facility] [id number] [place] [address] [id number] May, [facility] [address] [id number] Apr, Cervicalgia M54.2 and Depression F32.9 [place] [id number] [place] [address] Apr, [place] [address] [address] Apr, [place] [id number] [place] [address] Apr, [facility] [address] [id number] Feb, Dementia without behavioral disturbance, unspecified dementia type F03.90 and Depression F32.9 [place] [id number] [place] [address]87 Dec, [place] [id number] [place] [address]- 1576 Dec, [place] [id number] [place] [address] Dec, [facility] [address] [id number] Dec, Upper respiratory tract infection, unspecified type J06.9 and Cellulitis of nose, external J34.0 [place] [id number] [place] [address] Nov, 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 [place] [id number] [place] [address] Oct, [place] [address] [place] [address] Oct, Seasonal allergies J30.2 ; Dizziness R42 ; Nausea R11.0 and Cough R05 [facility] [address] [id number] Oct, Bipolar disorder, unspecified F31.9 [place] [address] [address] Oct, [facility] [address] [id number] Aug, Seasonal allergic rhinitis due to pollen J30.1 [place] [address] [address] Aug, [facility] [address] [id number] Jul, Depression F32.9 and Shakes R25.[address] [id number] Jun, Depression F32.9 [place] [id number] [place] [address] May, 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 [place] [id number] [place] [address] May, [place] [address] [address] March, Easy bruising R23.8 [place] [address] [address] March, 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 [id number] March, Essential (primary) hypertension I10 ; Chronic [...] R05 and Dementia w behavior dist F03.91 [place] [address] [address] 14 Feb, 2016 [place] [address] [address] Feb, Low back pain M54.5 [place] [address] [address] Jan, Cough R05 and Diarrhea R19.7 [place] [id number] [place] [address] Jan, [place] [address] [address] Jan, Depression F32.9 and Dementia without behavioral disturbance , unspecified dementia type F03.90 [place] [id number] [place] [address] Jan, [facility] [address] [id number] Dec, Dementia without behavioral disturbance, unspecified dementia type F03.90 and Depression F32.9 [place] [id number] [place] [address]248 Dec, [place] [id number] [place] [address]- [address] Dec, [place] [address] [address] Dec, [facility] [address], [place] [address] Oct, [facility] [address] [id number] Oct, Dementia without behavioral disturbance, unspecified dementia type F03.90 and Depression F32.9 [facility] [id number] [place] [address] Jul, Cough 786.2 and Diarrhea 787.91 [facility] [address] [id number] May, Depressive disorder, not elsewhere classified 311 [facility] [id number] [place] [address] March, Diarrhea 787.91 ; Depression 311 and Dementia 294.20 [facility] [id number] [place] [address]- [address] Feb, [facility] [id number] [place] [address] Feb, [facility] [address] [id number] Jan, [facility] [id number] [place] [address] Jan, [facility] [id number] [address] Dec, [facility] [id number] [place] [address] 2546 Dec, [facility] [address] [place] [address] 2546 Dec, [facility] [address] [id number] Dec, [facility] [address] [place] [address]46 Aug, [facility] [id number] [place] [address] 47[address]- [address] Aug, [facility] [address] [id number] [place] [address] Aug, [facility] [address] [facility] [id number] Aug, [facility] [address] [id number] [place] [address] Jul, [facility] [address] [id number] [place] [address] Jul, [facility] [address] [facility] [id number] Jun, [facility] [address] [id number] [place] [address] Jun, [facility] [address] [id number] [place] [address]- [address] Jun, [facility] [address] [id number] [place] [address] 8660 Jun, [facility] [address] [id number] [place] [address]- 9837 Jun, [facility] [address] [id number] [place] [address] Jun, [facility] [address] [facility] [id number] Jun, [facility] [address] [id number] [place] [address]- 3948 Jun, [facility] [address] [id number] [place] [address] May, [facility] [address] [id number] [place] May, [facility] [address] [id number] [place] [address]- 6046 May, [facility] [address] [id number] [place] [address]- 8245 May, [facility] [place] [facility] [address] [id number] [place] [address]- 4839 May, [facility] [place] [facility] [address] [id number] [place] [address]- 46[address] May, [facility] [address] [facility] [id number] May, [facility] [place] [facility] [address] [id number] [place] [address]- 29[address] May, [facility] [place] [facility] [address] [id number] [place] [address]- 7225 Apr, [facility] [place] [facility] [address] [id number] [place] [address]- 1807 Apr, [facility] [place] [facility] [address] [id number] [place] [address]- 1219 Apr, [facility] [place] [facility] [address] [id number] [place] [address]- 3433 Apr, [facility] [place] [facility] [address] [id number] [place] [address]- 0442 Apr, [facility] [place] [facility] [address] [id number] [place] [address]- 0655 Apr, [facility] [place] [facility] [address] [id number] [place] [address]- 8199 Apr, [facility] [place] [facility] [address] [id number] [place] [address]- 2228 Apr, [facility] [place] [facility] [address] [id number] [place] [address]- 3313 Apr, [facility] [place] [facility] [address] [id number] [place] [address]- 0058 Apr, [facility] [place] [facility] [address] [id number] [place] [address]- 4610 Apr, [facility] [place] [facility] [address] [id number] [address] Apr, [facility] [address] [place] [id number] March, [facility] [address], [place] [address] March, [facility] [id number], [place] [address] March, [facility] [address], [place] [address] March, [facility] [id number], [place] [address] March, [facility] [id number], [place] [address]- [address] March, [facility] [id number], [place] [address] Oct, [facility] [id number], [place] [address] Oct, IMMUNIZATIONS No Known Immunizations SOCIAL HISTORY Never Assessed REASON FOR VISIT change pepcid to Zantac per ins PLAN OF CARE VITAL SIGNS MEDICATIONS Medication Instructions Dosage Frequency Start Date End Date Duration Status Ranitidine HCl 150 MG Orally twice a day 1 tablet 12h May, 90 days Active RESULTS No Results PROCEDURES No Known procedures INSTRUCTIONS MEDICATIONS ADMINISTERED No Known Medications
--- OUTSIDE RECORDS SUMMARY | 2018-08-06 21:14 | XMS REPORT ---
Author Author VERONICA SPRINGER [facility] Address [address] [place] [address] Care Team Providers Care Dictating Machine Transcriber Name Role Phone VERONICA SPRINGER Unavailable PROBLEMS Type Condition ICD9-CM Code IRN86-DL Code Onset Dates Condition Status SNOMED Code Problem Dementia without behavioral disturbance, unspecified dementia type F03.90 Active 54754770 Problem Depression F32.9 Active 63236767 Problem Bipolar disorder, unspecified F31.9 Active 31315112 Problem Hypothyroidism, unspecified type E03.9 Active 91785857 Problem Hypokalemia E87.6 Active 70972653 Problem Nausea and vomiting, unspecified intactability, vomiting of unspecified type R11.2 Active 67841282 Problem Type 2 diabetes mellitus without complications E11.9 Active 092909458 Problem 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 Active 76683084 Problem Subacute dyskinesia due to drug G24.01 Active 544831607 Problem Pain R52 Active 97805468 Problem Atrial fibrillation with RVR I48.91 Active 576394332911162 Problem Tongue pain K14.6 Active 68243230 Problem Cough R05 Active 14167537 Problem Nausea R11.0 Active 147139766 Problem Essential (primary) hypertension I10 Active 93791174 Problem Seasonal allergic rhinitis due to pollen J30.1 Active 81520977 Problem Diarrhea, unspecified type R19.7 Active 27434085 Problem Primary insomnia F51.01 Active 1794601 Problem Poor appetite R63.0 Active 76213507 Problem Constipation, unspecified constipation type K59.00 Active 89831018 Problem Gastroesophageal reflux disease, esophagitis presence not specified K21.9 Active 147141558 Problem Allergic rhinitis, unspecified J30.9 Active 90851655 Problem Chronic atrial fibrillation I48.2 Active 336231688 Problem Restless leg syndrome G25.81 Active 41444062 Problem Neuropathy G62.9 Active 664762938 Problem Dizziness R42 Active 438052800 Problem Seasonal allergies J30.2 Active 252770202 ALLERGIES No Information SOCIAL HISTORY Never Assessed PLAN OF CARE VITAL SIGNS MEDICATIONS Unknown Medications RESULTS No Results PROCEDURES No Known procedures IMMUNIZATIONS No Known Immunizations
--- OUTSIDE RECORDS SUMMARY | 2018-08-06 21:14 | XMS REPORT ---
Author Author BEVERLY BALLESTEROS [facility] Address [address] [place] [address] Care Team Providers Care Esthetics Instructor Name Role Phone BEVERLY BALLESTEROS Unavailable PROBLEMS Type Condition ICD9-CM Code [id number] Code Onset Dates Condition Status SNOMED Code Problem Dementia without behavioral disturbance, unspecified dementia type F03.90 Active 92346185 Problem Depression F32.9 Active 82158947 Problem Bipolar disorder, unspecified F31.9 Active 29412260 Problem Hypokalemia E87.6 Active 73617532 Problem Hypothyroidism, unspecified type E03.9 Active 10008154 Problem Type 2 diabetes mellitus without complications E11.9 Active 332395098 Problem Nausea and vomiting, unspecified intactability, vomiting of unspecified type R11.2 Active 53646937 Problem Essential (primary) hypertension I10 Active 95658714 Problem 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 Active 36394967 Problem Diarrhea, unspecified type R19.7 Active 18728572 Problem Subacute dyskinesia due to drug G24.01 Active 028955914 Problem Sciatica, left side M54.32 Active 07596426 Problem Atrial fibrillation with RVR I48.91 Active 528535032867315 Problem Constipation, unspecified constipation type K59.00 Active 79907772 Problem Cough R05 Active 08980314 Problem Nausea R11.0 Active 034134509 Problem Poor appetite R63.0 Active 77706702 Problem Seasonal allergic rhinitis due to pollen J30.1 Active 22222698 Problem Tongue pain K14.6 Active 91284879 Problem Primary insomnia F51.01 Active 9490872 Problem Seasonal allergies J30.2 Active 561103614 Problem Restless leg syndrome G25.81 Active 26330666 Problem Gastroesophageal reflux disease, esophagitis presence not specified K21.9 Active 078989307 Problem Dizziness R42 Active 959987454 Problem Chronic atrial fibrillation I48.2 Active 915999317 Problem Pain R52 Active 78407978 Problem Neuropathy G62.9 Active 412146566 Problem Allergic rhinitis, unspecified J30.9 Active 24815173 ALLERGIES No Information ENCOUNTERS Encounter Location Date Diagnosis [place] [address] [place] [address]256- [address]30 Feb, [facility] [address] [id number] Feb, Otalgia of right ear H92.01 [place] [address] [place] [id number] [place] [address] 25153- 9966 Jan, Cough R05 and Pain of left hip joint M25.552 [place] [address] [place] [id number] [place] [address] [id number] Dec, [facility] [address] [id number] Dec, Dementia without behavioral disturbance, unspecified dementia type F03.90 [place] [address] [place] [id number] [place] [address] 63138- 0580 Nov, [facility] [place] [address] [place] [phone] Oct, Sciatica, left side M54.32 [place] [address] [place] [id number] [place] [address] [id number] Oct, Pain of left hip joint M25.[address] [facility] [id number] Sep, Dementia without behavioral disturbance, unspecified dementia type F03.90 [place] [address] [place] [address] 57109- 2525 14 Jul, 2017 Atrial fibrillation with RVR I48.[address] [facility] [address] [id number] Jul, Tongue pain K14.6 [place] [address] [place] [id number] [place] [address] [id number] Jul, [place] [address] [place] [id number] [place] [address] [id number] Jul, [facility] [address] [place] [id number] Jun, Allergic rhinitis, unspecified J30.9 ; Poor appetite R63.0 and Primary insomnia F51.01 [place] [address] [place] [id number] [place] [address] [phone]- 7809 May, Gastroesophageal reflux disease, esophagitis presence not specified K21.9 [facility] [address] [place] [id number] [place] [address] [id number] May, [facility] [address] [id number] Apr, Cervicalgia M54.2 and Depression F32.9 [place] [address] 84648- 7353 Apr, [place] [address] [place] [id number] [place] [address] 63639- 8996 Apr, [place] [address] 62998- 0899 Apr, [facility] [address] [id number] Feb, Dementia without behavioral disturbance, unspecified dementia type F03.90 and Depression F32.9 [place] [address] [place] [id number] [place] [address] 44057- 7887 24 Dec, 2016 [place] [address] [place] [id number] [place] [address] 53717- 4745 Dec, [facility] [address] [place] [id number] [place] [address] 48094- 5668 14 Dec, 2016 [facility] [address] [place] [phone] Dec, Upper respiratory tract infection, unspecified type J06.9 and Cellulitis of nose, external J34.0 [place] [address] [place] [address] 24423- 2628 Nov, 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 [place] [address] [place] [address] 68[address] Oct, [place] [address] [place] [id number] [place] [address] 78188- 2261 Oct, Seasonal allergies J30.2 ; Dizziness R42 ; Nausea R11.0 and Cough R05 [facility] [address] [id number] Oct, Bipolar disorder, unspecified F31.9 [place] [address] 81994- 8317 Oct, [facility] [address] [id number] Aug, Seasonal allergic rhinitis due to pollen J30.1 [place] [address] [place] [address] [place] [address] 82312- 6804 Aug, [facility] [address] [id number] Jul, Depression F32.9 and Shakes R25.[address] [facility] [address] [id number] Jun, Depression F32.9 [place] [address] [place] [address] [place] [address] 08056- 5054 May, 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 [place] [address] [place] [id number] [place] [address] 21951- 1748 May, [place] [address] [place] [address] [place] [address] 95389- 9510 March, Easy bruising R23.8 [place] [address] [place] [address] [place] [address] 89564- 0246 March, 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 [facility] [address] [id number] March, Essential (primary) hypertension I10 ; Chronic [...] R05 and Dementia w behavior dist F03.91 [place] [address] 85567- 4542 14 Feb, 2016 [place] [address] 35437- 0180 Feb, Low back pain M54.5 [place] [address] 76989- 9019 Jan, Cough R05 and Diarrhea R19.7 [place] [address] 01419- 3727 Jan, [place] [address] 46842- 9210 Jan, Depression F32.9 and Dementia without behavioral disturbance , unspecified dementia type F03.90 [place] [address] [place] [id number] [place] [address] 86350- 7476 08 Jan, [facility] [address] [place] [phone] Dec, Dementia without behavioral disturbance, unspecified dementia type F03.90 and Depression F32.9 [place] [address] [place] [id number] [place] [address] 89188- 9302 Dec, [place] [address] 05218- 1880 Dec, [facility] [address] [place] [address]- 8141 Dec, [facility] [address] [place] [id number] [place] [address] 73938- 8539 Oct, [facility] [address] [place] [id number] Oct, Dementia without behavioral disturbance, unspecified dementia type F03.90 and Depression F32.9 [facility] [address] [place] [address] [place] [address] 57407- 5228 Jul, Cough 786.2 and Diarrhea 787.91 [facility] [address] [place] [id number] May, Depressive disorder, not elsewhere classified [address] [place] [address] [place] [address] [place] [address] 49655- 2180 March, Diarrhea 787.91 ; Depression 311 and Dementia 294.20 [facility] [address] [place] [address] 50959- 8593 Feb, [facility] [address] [place] [id number] [place] [address] 86841- 2464 Feb, [facility] [address] [place] [id number] Jan, [facility] [address] [address]- 5641 Jan, [facility] [address] [place] [address] 25177- 3946 Dec, [facility] [address] [place] [address]- 9419 Dec, [facility] [address] [place] [address] 81447- 7336 Dec, [facility] [address] [place] [id number] Dec, [facility] [address] [place] [address] 70159- 0224 Aug, [facility] [address] [id number] [place] [address]- 5778 Aug, [facility] [address] [id number] [place] [address]- 2746 Aug, [facility] [address] [facility] [place] [id number] Aug, [facility] [address] [id number] [place] [address]- 7981 Jul, [facility] [address] [id number] [place] [address] 1992 Jul, [facility] [address] [facility] [id number] Jun, [facility] [address] [id number] [place] [address]- 5273 Jun, [facility] [address] [id number] [place] [address]- 9673 Jun, [facility] [address] [id number] [place] [address]- 8689 Jun, [facility] [address] [id number] [place] [address]- 2047 Jun, [facility] [address] [id number] [place] [address]- 3068 Jun, [facility] [address] [facility] [id number] Jun, [facility] [address] [id number] [place] [address]- 9937 Jun, [facility] [place] [facility] [address] [id number] [place] [address]- 4422 May, [facility] [address] [id number] [place] [address]- 0747 May, [facility] [address] [id number] [place] [address]- 3842 May, [facility] [place] [facility] [address] [id number] [place] [address]- 1157 May, [facility] [place] [facility] [address] [id number] [place] [address]- 5921 May, [facility] [place] [facility] [address] [id number] [place] [address]- 1515 May, [facility] [address] [facility] [place] [id number] May, [facility] [place] [facility] [address] [id number] [place] [address]- 4641 May, [facility] [place] [facility] [address] [id number] [place] [address]- 4715 Apr, [facility] [place] [facility] [address] [id number] [place] [address]- 8990 Apr, [facility] [place] [facility] [address] [id number] [place] [address]- 6258 Apr, [facility] [place] [facility] [address] [id number] [place] [address]- 2312 Apr, [facility] [place] [facility] [address] [id number] [place] [address]- 5655 Apr, [facility] [place] [facility] [address] [id number] [place] [address]- 7018 Apr, [facility] [place] [facility] [address] [id number] [place] [address]- 4750 Apr, [facility] [place] [facility] [address] [id number] [place] [address]- 8685 Apr, [facility] [place] [facility] [address] [id number] [place] [address]- 5355 Apr, [facility] [place] [facility] [address] [id number] [place] [address]- 2223 Apr, [facility] [place] [facility] [address] [id number] [place] [address]- 2546 Apr, [facility] [address] [facility] [id number] [place] [address] Apr, [facility] [address] [place] [id number] March, [facility] [address] [facility] [id number] [place] March, [facility] [address] [place] [id number] [place] [address]- 5048 March, [facility] [address] [facility] [id number] [place] [address]- 1514 March, [facility] [address] [place] March, [facility] [address] [place] [id number] [place] [address]- 8033 March, [facility] [address] [place] [id number] [place] [address]- 9125 Oct, [facility] [address] [facility] [id number] [place] [address]- 7493 Oct, IMMUNIZATIONS No Known Immunizations SOCIAL HISTORY Never Assessed REASON FOR VISIT Routine Visit PLAN OF CARE Activity Details Follow Up prn Reason: VITAL SIGNS MEDICATIONS Medication Instructions Dosage Frequency Start Date End Date Duration Status Lactobacillus - Active Losartan Potassium 100 MG Orally Once a day 1 tablet 24h Active Tussin Cough 15 MG/5ML Orally every 4 hours 10 ml as needed for cough 4h Active Gabapentin 100 MG Orally Once a day 1 capsule 24h March, Active Requip 1 MG Orally 2 times a day 1 tablet for restless leg syndrome 12h March, Active Ranitidine HCl 150 MG Orally twice a day 1 tablet May, 90 days Not-Taking Acetaminophen 325 MG Orally every 4 hours 2 tablets as needed for pain 4h Active Oxcarbazepine 300 Orally at bedtime 1 tablet Active Trileptal 300 MG Orally Once a day 1 tablet at bedtime 24h Not- Taking Flonase 50 MCG/ACT Nasally twice a day 1 spray in each nostril 12h Jul, 30 day(s) Not-Taking Famotidine 20 mg Orally twice a day 1 tablet at bedtime 12h Active Toprol XL 50 MG Orally Once a day 1 tablet 24h Active Plavix 75 MG Orally Once a day 1 tablet 24h Active Magnesium Oxide 400 mg 1 Tablet by Oral route 3 times per day at 0800, 1200 , & 1700 March, Active Amlodipine Besylate 10 MG Orally Once a day 1 tablet 24h Active Gabapentin 100 MG Orally Once a day at HS 2 tablets Active Multivitamin/Minerals Active Cetirizine HCl 10 mg Orally Once a day 1 tablet 24h Active Lasix 40 mg Orally Once a day 1 tablet 24h March, Active Levothyroxine Sodium 125 MCG Orally Once a day 1 tablet 24h Active Exelon 6 MG Orally Twice a day 1 Capsule 12h Jun, Active Senna 8.6 MG Orally Once a day 1 tablet as needed 24h March, Active Trazodone HCl 50 MG Orally Once a day 1 tablet at bedtime as needed 24h Active Potassium Chloride ER 20 MEQ Orally 3 times a day 1 tablet 8h Active Carbidopa-Levodopa 25-100 mg take 1 tablet by Oral route 2 times per day March, Active Melatonin 3 MG Orally at bedtime 3 tablets at bedtime Active Imodium A-D 2 MG Orally 8 time(s) a day 1 tablet as needed for Diarrhea Active Diltiazem CD 240 MG Orally Once a day 1 capsule 24h Active Zoloft 100 MG Orally Once a day 1 tablet 24h Jun, Active Xarelto 10 MG Orally Once a day 1 tablet 24h Active RESULTS No Results PROCEDURES Procedure Date Ordered Result Body Site Stable Visit (10 minutes) Sep 29, 2017 INSTRUCTIONS MEDICATIONS ADMINISTERED No Known Medications
--- OUTSIDE RECORDS SUMMARY | 2018-08-06 21:14 | XMS REPORT ---
Author Author BEVERLY BALLESTEROS [facility] Address [address] [place] [address] Care Team Providers Care Watch Mechanic Name Role Phone BEVERLY BALLESTEROS Unavailable PROBLEMS Type Condition ICD9-CM Code FGM41-HU Code Onset Dates Condition Status SNOMED Code Problem Dementia without behavioral disturbance, unspecified dementia type F03.90 Active 64518878 Problem Depression F32.9 Active 29183564 Problem Bipolar disorder, unspecified F31.9 Active 03196962 Problem Hypokalemia E87.6 Active 31869658 Problem Hypothyroidism, unspecified type E03.9 Active 77608158 Problem Type 2 diabetes mellitus without complications E11.9 Active 682880621 Problem Nausea and vomiting, unspecified intactability, vomiting of unspecified type R11.2 Active 87859901 Problem Essential (primary) hypertension I10 Active 25328003 Problem 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 Active 39452819 Problem Diarrhea, unspecified type R19.7 Active 50967106 Problem Subacute dyskinesia due to drug G24.01 Active 748057703 Problem Sciatica, left side M54.32 Active 33039912 Problem Atrial fibrillation with RVR I48.91 Active 126381188392111 Problem Constipation, unspecified constipation type K59.00 Active 88246969 Problem Cough R05 Active 58664751 Problem Nausea R11.0 Active 658657906 Problem Poor appetite R63.0 Active 30144053 Problem Seasonal allergic rhinitis due to pollen J30.1 Active 98653741 Problem Tongue pain K14.6 Active 02534417 Problem Primary insomnia F51.01 Active 8265614 Problem Seasonal allergies J30.2 Active 994459444 Problem Restless leg syndrome G25.81 Active 75930392 Problem Gastroesophageal reflux disease, esophagitis presence not specified K21.9 Active 916101457 Problem Dizziness R42 Active 355622855 Problem Chronic atrial fibrillation I48.2 Active 457267389 Problem Pain R52 Active 02379970 Problem Neuropathy G62.9 Active 060606004 Problem Allergic rhinitis, unspecified J30.9 Active 43428138 ALLERGIES No Information ENCOUNTERS Encounter Location Date Diagnosis [place] [address] [place] [address] 956039- 7256 Jan, Cough R05 and Pain of left hip joint M25.552 [place] [address] [place] [id number] [place] [address] [id number] Dec, [facility] [address] [id number] Dec, Dementia without behavioral disturbance, unspecified dementia type F03.90 [place] [address] [place] [id number] [place] [address] 27581- 7206 Nov, [facility] [address] [id number] Oct, Sciatica, left side M54.32 [place] [address] [id number] Oct, Pain of left hip joint M25.[address] [facility] [address] [id number] Sep, Dementia without behavioral disturbance, unspecified dementia type F03.90 [place] [address] [place] [address] 862117- 7756 Jul, Atrial fibrillation with RVR I48.[address] [facility] [address] [id number] Jul, Tongue pain K14.6 [place] [address] [place] [id number] [place] [address] [id number] Jul, [place] [address] [place] [id number] [place] [address] [id number] Jul, [facility] [address] [id number] Jun, Allergic rhinitis, unspecified J30.9 ; Poor appetite R63.0 and Primary insomnia F51.01 [place] [address] [place] [id number] [place] [address] 95024- 2284 May, Gastroesophageal reflux disease, esophagitis presence not specified K21.9 [facility] [address] [place] [id number] [place] [address] [phone] May, [facility] [address] [place] [id number] Apr, Cervicalgia M54.2 and Depression F32.9 [place] [address] 8[address]- 7168 Apr, [place] [address] [place] [id number] [place] [address] 44992- 7811 Apr, [place] [address] 91054- 3178 Apr, [facility] [address] [place] [id number] Feb, Dementia without behavioral disturbance, unspecified dementia type F03.90 and Depression F32.9 [place] [address] [place] [id number] [place] [address] 82140- 1429 Dec, [place] [address] [place] [id number] [place] [address] 63068- 4994 Dec, [place] [address] [place] [id number] [place] [address] 88796- 8501 Dec, [facility] [address] [id number] Dec, Upper respiratory tract infection, unspecified type J06.9 and Cellulitis of nose, external J34.0 [place] [address] [place] [id number] [place] [address] 03013- 0362 Nov, 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 [place] [address] [place] [id number] [place] [address] 47798- 9838 Oct, [place] [address] [place] [id number] [place] [address] 57735- 9037 Oct, Seasonal allergies J30.2 ; Dizziness R42 ; Nausea R11.0 and Cough R05 [facility] [address] [id number] Oct, Bipolar disorder, unspecified F31.9 [address] [place] [address] 27029- 4746 Oct, [facility] [address] [id number] Aug, Seasonal allergic rhinitis due to pollen J30.1 [place] [id number] [place] [address] 24710- 4717 Aug, [facility] [address] [id number] Jul, Depression F32.9 and Shakes R25.[address] [facility] [address] [id number] Jun, Depression F32.9 [place] [id number] [place] [address] 58141- 8854 May, 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 [place] [address] [place] [id number] [place] [address] 48600- 9969 May, [place] [id number] [place] [address] 99639- 0445 March, Easy bruising R23.8 [place] [id number] [place] [address] 90120- 0739 March, 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 [facility] [address] [id number] March, Essential (primary) hypertension I10 ; Chronic [...] R05 and Dementia w behavior dist F03.91 [place] [address] 82121- 0381 14 Feb, 2016 [place] [address] 16549- 9771 12 Feb, 2016 Low back pain M54.[address] 38887- 4002 31 Jan, 2016 Cough R05 and Diarrhea R19.[address] 14609- 9801 Jan, [place] [address] 86115- 5307 Jan, Depression F32.9 and Dementia without behavioral disturbance , unspecified dementia type F03.90 [place] [address] [place] [id number] [place] [address] 91941- 6175 08 Jan, [facility] [address] [place] [id number] Dec, Dementia without behavioral disturbance, unspecified dementia type F03.90 and Depression F32.9 [place] [address] [place] [id number] [place] [address] 91752- 1941 Dec, [place] [address] [place] [id number] [place] [address] 27961- 1213 Dec, [place] [address] [place] [id number] [place] [address] 13544- 8054 Dec, [place] [address] [place] [id number] [place] [address] 28417- 1175 Oct, [facility] [address] [place] [id number] Oct, Dementia without behavioral disturbance, unspecified dementia type F03.90 and Depression F32.9 [facility] [address] [place] [id number] [place] [address] 31872- 9716 Jul, Cough 786.2 and Diarrhea 787.91 [facility] [address] [place] [id number] May, Depressive disorder, not elsewhere classified 311 [facility] [address] [place] [id number] [place] [address] 44407- 2816 March, Diarrhea 787.91 ; Depression 311 and Dementia 294.20 [facility] [address] [place] [id number] [place] [address] 38859- 0886 Feb, [facility] [address] [place] [id number] [place] [address] 94574- 1460 Feb, [facility] [address] [place] [id number] Jan, [facility] [address] [place] [id number] [place] [address] 597721- 0577 Jan, [facility] [address] [place] [id number] [place] [address] 13656- 1258 Dec, [facility] [address] [place] [id number] [place] [address] 00160- 9878 Dec, [facility] [address] [place] [id number] [place] [address] 59785- 9426 Dec, [facility] [address] [place] [id number] Dec, [facility] [address] [place] [id number] [place] [address] 01679- 9696 Aug, [facility] [address] [place] [id number] [place] [address] 43328- 4636 Aug, [facility] [address] [place] [id number] [place] [address] [id number]- 3195 Aug, [facility] [address] [facility] [id number] Aug, [facility] [address] [id number] [place] [address]- 9724 Jul, [facility] [address] [id number] [place] [address]- 5826 Jul, [facility] [address] [facility] [id number] Jun, [facility] [address] [id number] [place] [address]- 7268 Jun, [facility] [address] [id number] [place] [address]- 9324 Jun, [facility] [address] [id number] [place] [address]- 3683 Jun, [facility] [place] [facility] [address] [id number] [place] [address]- 0489 Jun, [facility] [address] [id number] [place] [address]- 5689 Jun, [facility] [address] [facility] [id number] Jun, [facility] [address] [id number] [place] [address]- 6055 Jun, [facility] [place] [facility] [address] [id number] [place] [address]- 5716 May, [facility] [place] [facility] [address] [id number] [place] [address]- 2821 May, [facility] [place] [facility] [address] [id number] [place] [address]- 7224 May, [facility] [place] [facility] [address] [id number] [place] 2747 May, [facility] [place] [facility] [address] [id number] [place] [address]- 1629 May, [facility] [place] [facility] [address] [id number] [place] [address]- 5049 May, [facility] [address] [place] [id number] May, [facility] [place] [facility] [address] [id number] [place] [address]- 5634 May, [facility] [place] [facility] [address] [id number] [place] [address]- 3120 Apr, [facility] [place] [facility] [address] [id number] [place] [address]- 8875 Apr, [facility] [place] [facility] [address] [id number] [place] [address]- 0735 Apr, [facility] [place] [facility] [address] [id number] [place] [address]- 4198 Apr, [facility] [place] [facility] [address] [id number] [place] [address]- 1976 Apr, [facility] [place] [facility] [address] [id number] [place] [address]- 1223 Apr, [facility] [place] [facility] [address] [id number] [place] [address]- 2370 Apr, [facility] [place] [facility] [address] [id number] [place] [address]- 7945 Apr, [facility] [place] [facility] [address] [id number] [place] [address]- 5753 Apr, [facility] [place] [facility] [address] [id number] [place] [address]- 6133 Apr, [facility] [place] [facility] [address] [id number] [place] [address]- 4529 Apr, [facility] [place] [facility] [address] [id number] [place] [address]- 9064 Apr, [facility] [address] [place] [id number] March, [facility] [address] [facility] [id number] [address]- 2172 March, [facility] [address] [place] [id number] [address] 6382 March, [facility] [address] [place] [id number] [address]- 9600 March, [facility] [address] March, [facility] [address] [place] [id number] 6[address] March, [facility] [address] [address]- 8964 Oct, [facility] [address] [place] [id number] [address]- 9815 Oct, IMMUNIZATIONS No Known Immunizations SOCIAL HISTORY Never Assessed REASON FOR VISIT Routine Visit PLAN OF CARE Activity Details Follow Up prn Reason: VITAL SIGNS MEDICATIONS Medication Instructions Dosage Frequency Start Date End Date Duration Status Gabapentin 100 MG Orally Once a day 1 capsule 24h March, Active Acetaminophen 325 MG Orally every 4 hours 2 tablets as needed for pain 4h Active Zoloft 100 MG Orally Once a day 1 tablet 24h Jun, Active Losartan Potassium 100 MG Orally Once a day 1 tablet 24h Active Carbidopa-Levodopa 25-100 mg take 1 tablet by Oral route 2 times per day March, Active Magnesium Oxide 400 mg 1 Tablet by Oral route 3 times per day at 0800, 1200 , & 1700 March, Active Potassium Chloride ER 20 MEQ Orally 3 times a day 1 tablet 8h Active Imodium A-D 2 MG Orally 8 time(s) a day 1 tablet as needed for Diarrhea Active Requip 1 MG Orally 2 times a day 1 tablet for restless leg syndrome 12h March, Active Exelon 6 MG Orally Twice a day 1 Capsule 12h Jun, Active Melatonin 3 MG Orally Once a day 1 tablet at bedtime as needed with food 24h Active Pepcid 20 MG take 1 tablet (20 mg) by oral route 2 times per day March Active Trileptal 300 MG Orally Once a day 1 tablet at bedtime 24h Active Tussin Cough 15 MG/5ML Orally every 4 hours 10 ml as needed for cough 4h Active Gabapentin 100 MG Orally Once a day at HS 2 tablets Active Cetirizine HCl 10 MG Orally Once a day 1 tablet as needed 24h Active Plavix 75 MG Orally Once a day 1 tablet 24h Active Lasix 40 mg Orally Once a day 1 tablet 24h March, Active Senna 8.6 MG Orally Once a day 1 tablet 24h March, Active Ferrous Sulfate 325 (65 Fe) MG Orally twice a day 1 tablet 12h Active Levothyroxine Sodium 125 MCG Orally Once a day 1 tablet 24h Active Amlodipine Besylate 10 MG Orally Once a day 1 tablet 24h Active Trazodone HCl 50 MG Orally Once a day 1 tablet at bedtime as needed 24h Active RESULTS No Results PROCEDURES Procedure Date Ordered Result Body Site Minor complication (15 mins) May 10, 2017 INSTRUCTIONS MEDICATIONS ADMINISTERED No Known Medications
--- OUTSIDE RECORDS SUMMARY | 2018-08-06 21:15 | XMS REPORT ---
Author Author BEVERLY BALLESTEROS [facility] Address [address] [place] [address] Care Team Providers Care Receiving Coordinator Name Role Phone BEVERLY BALLESTEROS Unavailable PROBLEMS Type Condition ICD9-CM Code QFF02-AO Code Onset Dates Condition Status SNOMED Code Problem Dementia without behavioral disturbance, unspecified dementia type F03.90 Active 81497520 Problem Depression F32.9 Active 11139486 Problem Bipolar disorder, unspecified F31.9 Active 84369724 Problem Hypothyroidism, unspecified type E03.9 Active 08866687 Problem Hypokalemia E87.6 Active 69757238 Problem Nausea and vomiting, unspecified intactability, vomiting of unspecified type R11.2 Active 45166765 Problem Type 2 diabetes mellitus without complications E11.9 Active 837596161 Problem 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 Active 32021141 Problem Subacute dyskinesia due to drug G24.01 Active 177532558 Problem Pain R52 Active 55881736 Problem Atrial fibrillation with RVR I48.91 Active 185470366901020 Problem Tongue pain K14.6 Active 35495849 Problem Cough R05 Active 79993200 Problem Nausea R11.0 Active 721781688 Problem Essential (primary) hypertension I10 Active 61935447 Problem Seasonal allergic rhinitis due to pollen J30.1 Active 83606018 Problem Diarrhea, unspecified type R19.7 Active 48353885 Problem Primary insomnia F51.01 Active 9511251 Problem Poor appetite R63.0 Active 58659640 Problem Constipation, unspecified constipation type K59.00 Active 75124637 Problem Gastroesophageal reflux disease, esophagitis presence not specified K21.9 Active 939266245 Problem Allergic rhinitis, unspecified J30.9 Active 17896561 Problem Chronic atrial fibrillation I48.2 Active 093390377 Problem Restless leg syndrome G25.81 Active 73941077 Problem Neuropathy G62.9 Active 411979691 Problem Dizziness R42 Active 571192452 Problem Seasonal allergies J30.2 Active 387481954 ALLERGIES No Information SOCIAL HISTORY Never Assessed PLAN OF CARE VITAL SIGNS MEDICATIONS Unknown Medications RESULTS No Results PROCEDURES No Known procedures IMMUNIZATIONS No Known Immunizations
--- OUTSIDE RECORDS SUMMARY | 2018-08-06 21:15 | XMS REPORT ---
Author Author BEVERLY BALLESTEROS [facility] Address [address] [place] [address] Care Team Providers Care Lawn Care Worker Name Role Phone BEVERLY BALLESTEROS Unavailable PROBLEMS Type Condition ICD9-CM Code NCZ26-VE Code Onset Dates Condition Status SNOMED Code Problem Dementia without behavioral disturbance, unspecified dementia type F03.90 Active 27139965 Problem Depression F32.9 Active 55814273 Problem Bipolar disorder, unspecified F31.9 Active 71521333 Problem Hypothyroidism, unspecified type E03.9 Active 83239884 Problem Hypokalemia E87.6 Active 26035265 Problem Nausea and vomiting, unspecified intactability, vomiting of unspecified type R11.2 Active 24759915 Problem Type 2 diabetes mellitus without complications E11.9 Active 512850015 Problem 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 Active 52787692 Problem Subacute dyskinesia due to drug G24.01 Active 204085694 Problem Pain R52 Active 55418661 Problem Atrial fibrillation with RVR I48.91 Active 142984948130751 Problem Tongue pain K14.6 Active 13389985 Problem Cough R05 Active 57101986 Problem Nausea R11.0 Active 579859283 Problem Essential (primary) hypertension I10 Active 14312806 Problem Seasonal allergic rhinitis due to pollen J30.1 Active 22769054 Problem Diarrhea, unspecified type R19.7 Active 93765071 Problem Primary insomnia F51.01 Active 1778566 Problem Poor appetite R63.0 Active 20503915 Problem Constipation, unspecified constipation type K59.00 Active 26540879 Problem Gastroesophageal reflux disease, esophagitis presence not specified K21.9 Active 121448459 Problem Allergic rhinitis, unspecified J30.9 Active 38676128 Problem Chronic atrial fibrillation I48.2 Active 963336307 Problem Restless leg syndrome G25.81 Active 79805666 Problem Neuropathy G62.9 Active 138422860 Problem Dizziness R42 Active 450838581 Problem Seasonal allergies J30.2 Active 214510632 ALLERGIES No Information SOCIAL HISTORY Never Assessed PLAN OF CARE VITAL SIGNS MEDICATIONS Unknown Medications RESULTS No Results PROCEDURES No Known procedures IMMUNIZATIONS No Known Immunizations
--- OUTSIDE RECORDS SUMMARY | 2018-08-06 21:15 | XMS REPORT ---
Author Author VERONICA SPRINGER [facility] Address [address] [place] [address] Care Team Providers Care Head Gauge Unit Operator Name Role Phone VERONICA SPRINGER Unavailable PROBLEMS Type Condition ICD9-CM Code EXO97-OA Code Onset Dates Condition Status SNOMED Code Problem Dementia without behavioral disturbance, unspecified dementia type F03.90 Active 31122701 Problem Depression F32.9 Active 33697428 Problem Bipolar disorder, unspecified F31.9 Active 22592705 Problem Hypokalemia E87.6 Active 70129717 Problem Type 2 diabetes mellitus without complications E11.9 Active 832388410 Problem Nausea and vomiting, unspecified intactability, vomiting of unspecified type R11.2 Active 08007754 Problem Essential (primary) hypertension I10 Active 90254229 Problem 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 Active 32237537 Problem Nausea R11.0 Active 393903169 Problem Subacute dyskinesia due to drug G24.01 Active 859459916 Problem Seasonal allergic rhinitis due to pollen J30.1 Active 18408973 Problem Diarrhea, unspecified type R19.7 Active 54537688 Problem Acute bilateral low back pain with left-sided sciatica M54.42 Active 150350714 Problem Sciatica, left side M54.32 Active 14905773 Problem Gastroesophageal reflux disease, esophagitis presence not specified K21.9 Active 428640072 Problem Constipation, unspecified constipation type K59.00 Active 45929031 Problem Cough R05 Active 29475018 Problem Primary insomnia F51.01 Active 4013317 Problem Poor appetite R63.0 Active 58364096 Problem Atrial fibrillation with RVR I48.91 Active 948274934697414 Problem Tongue pain K14.6 Active 82519848 Problem Restless leg syndrome G25.81 Active 63694975 Problem Neuropathy G62.9 Active 612229901 Problem Dizziness R42 Active 937531958 Problem Seasonal allergies J30.2 Active 353358790 Problem Pain R52 Active 67537589 Problem Hypothyroidism, unspecified type E03.9 Active 50104319 Problem Allergic rhinitis, unspecified J30.9 Active 25546687 Problem Chronic atrial fibrillation I48.2 Active 108789964 ALLERGIES No Information ENCOUNTERS Encounter Location Date Diagnosis [facility] [address] [id number] Apr, Acute bilateral low back pain with left-sided sciatica M54.42 [place] [address] [place] [address]57 2546 Feb, [facility] [address] [id number] Feb, Otalgia of right ear H92.01 [place] [address] [address] [place] [id number] [place] [address] 56579- 6616 Jan, Cough R05 and Pain of left hip joint M25.552 [place] [id number] [id number] Dec, [facility] [place] [address] [place] [id number] Dec, Dementia without behavioral disturbance, unspecified dementia type F03.90 [place] [address] [place] [address] 44275 2546 Nov, [facility] [address] [id number] Oct, Sciatica, left side M54.32 [place] [address] [place] [id number] [place] [address] [id number] Oct, Pain of left hip joint M25.[address] [facility] [address] [id number] Sep, Dementia without behavioral disturbance, unspecified dementia type F03.90 [place] [id number] [place] [address] 12568 2546 14 Jul, 2017 Atrial fibrillation with RVR I48.[address] [facility] [address] [id number] 12 Jul, 2017 Tongue pain K14.6 [place] [address] [id number] [id number] Jul, [facility] [address] [place] [id number] [place] [address] [id number] Jul, [facility] [address] [id number] Jun, Allergic rhinitis, unspecified J30.9 ; Poor appetite R63.0 and Primary insomnia F51.01 [facility] [address] [place] [address] 73295- 7366 May, Gastroesophageal reflux disease, esophagitis presence not specified K21.9 [facility] [address] [place] [id number] [place] [address] [id number] May, [facility] [address] [id number] Apr, Cervicalgia M54.2 and Depression F32.9 [place] [address] [place] [id number] [place] [address] 96652- 0446 Apr, [facility] [address] [place] [address] 55327- 9656 Apr, [facility] [address] [place] [id number] [place] [address] 44162- 0651 Apr, [facility] [address] [id number] Feb, Dementia without behavioral disturbance, unspecified dementia type F03.90 and Depression F32.9 [facility] [address] [address] Dec, [facility] [address] [place] [address] 78874- 3271 Dec, [facility] [address] [place] [address] 33666- 4467 Dec, [facility] [address] [place] [id number] Dec, Upper respiratory tract infection, unspecified type J06.9 and Cellulitis of nose, external J34.0 [place] [address] [address] Nov, 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 [place] [address] [place] [address] 28766- 0047 Oct, [place] [address] [place] [id number] [place] [address] 72483- 3611 Oct, Seasonal allergies J30.2 ; Dizziness R42 ; Nausea R11.0 and Cough R05 [facility] [address] [id number] Oct, Bipolar disorder, unspecified F31.9 [place] [address] [place] [id number] [place] [address] 91009- 0577 Oct, [facility] [address] [id number] Aug, Seasonal allergic rhinitis due to pollen J30.1 [place] [address] [place] [id number] [place] [address] 49672- 7342 Aug, [facility] [address] [place] [id number] Jul, Depression F32.9 and Shakes R25.[address] [facility] [address] [id number] Jun, Depression F32.9 [place] [address] [place] [address] 91029- 8625 May, 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 [place] [address] [place] [address] 24356- 5662 May, [place] [address] [place] [id number] [place] [address] 81999- 5610 March, Easy bruising R23.8 [place] [address] [place] [address] 36899- 4323 March, 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 [facility] [id number] March, Essential (primary) hypertension I10 ; Chronic [...] R05 and Dementia w behavior dist F03.91 [place] [address] 0[address]70- 0750 Feb, [place] [address] 27367- 0484 Feb, Low back pain M54.5 [place] [address] 70613- 2348 Jan, Cough R05 and Diarrhea R19.7 [place] [address] 31507- 6180 Jan, [place] [address] 60462- 3922 Jan, Depression F32.9 and Dementia without behavioral disturbance , unspecified dementia type F03.90 [place] [address] 66217- 8057 08 Jan, 2016 [facility] [address] [place] [id number] Dec, Dementia without behavioral disturbance, unspecified dementia type F03.90 and Depression F32.9 [place] [address] [address] 97[address] Dec, [facility] [address] [place] [address] 27548- 7067 Dec, [facility] [address] [address]60 Dec, [facility] [address] [place] [id number] [place] [address] 04826- 1267 Oct, [facility] [address] [place] [id number] Oct, Dementia without behavioral disturbance, unspecified dementia type F03.90 and Depression F32.9 [facility] [address] [place] [id number] [place] [address] 32821- 3154 Jul, Cough 786.2 and Diarrhea 787.[address] [facility] [address] [id number] May, Depressive disorder, not elsewhere classified 311 [facility] [address] [place] [address] 28842- 0974 March, Diarrhea 787.91 ; Depression 311 and Dementia 294.20 [facility] [address] [address] 3370 Feb, [facility] [address] [address] 1489 Feb, [facility] [address] [place] [id number] Jan, [facility] [address] [address] 2983 Jan, [facility] [address] [place] [id number] [place] [address] 81704- 1571 Dec, [facility] [address] [address] 5266 Dec, [facility] [address] [place] [id number] [place] [address] 79380- 4563 Dec, [facility] [address] [facility] [id number] Dec, [facility] [address] [id number] [place] [address] 8433 Aug, [facility] [address] [id number] [place] [address]- 1364 Aug, [facility] [address] [id number] [place] [address]- 7221 Aug, [facility] [address] [facility] [id number] Aug, [facility] [address] [id number] [place] [address]- 6010 Jul, [facility] [address] [id number] [place] [address]- 2608 Jul, [facility] [address] [facility] [id number] Jun, [facility] [address] [id number] [place] [address]- 4067 Jun, [facility] [address] [id number] [place] [address]- 4683 Jun, [facility] [address] [id number] [place] [address]- 4953 Jun, [facility] [address] [id number] [address]- 4593 Jun, [facility] [address] [id number] [address]- 1357 Jun, [facility] [address] [facility] [id number] Jun, [facility] [address] [id number] [place] [address]- 2585 Jun, [facility] [address] [id number] [address] 2620 May, [facility] [place] [facility] [address] [id number] [place] [address]- 0511 May, [facility] [place] [facility] [address] [id number] [place] [address]- 5262 May, [facility] [place] [facility] [address] [id number] [place] [address]- 4244 May, [facility] [place] [facility] [address] [id number] [place] [address]- 6881 May, [facility] [place] [facility] [address] [id number] [place] [address]- 1270 May, [facility] [address] [facility] [id number] May, [facility] [place] [facility] [address] [id number] [place] [address]- 8681 May, [facility] [place] [facility] [address] [id number] [place] [address]- 6252 Apr, [facility] [place] [facility] [address] [id number] [place] [address]- 9752 Apr, [facility] [place] [facility] [address] [id number] [place] [address]- 9739 Apr, [facility] [place] [facility] [address] [id number] [place] [address]- 1884 Apr, [facility] [place] [facility] [address] [id number] [place] [address]- 1630 Apr, [facility] [place] [facility] [address] [id number] [place] [address]- 2402 Apr, [facility] [place] [facility] [address] [id number] [place] [address]- 9855 Apr, [facility] [place] [facility] [address] [id number] [place] [address]- 2342 Apr, [facility] [place] [facility] [address] [id number] [place] [address]- 3351 Apr, [facility] [address] [facility] [id number] [address]- 5171 Apr, [facility] [address] [facility] [id number] [address]- 9169 Apr, [facility] [address] [facility] [id number] [address]- 1385 Apr, [facility] [address] [place] [id number] March, [facility] [address] [facility] [id number] [address]- 5435 March, [facility] [address] [facility] [id number] [address]- 4843 March, [facility] [address] [facility] [id number] [address]- 5877 March, [facility] [address] [facility] [id number] [address]- 2171 March, [facility] [address] [facility] [id number] [address]- 9049 March, [facility] [address] [facility] [id number] [address]- 4445 Oct, [facility] [address] [facility] [id number] [address]- 1233 Oct, IMMUNIZATIONS No Known Immunizations SOCIAL HISTORY Never Assessed REASON FOR VISIT Hip pain PLAN OF CARE VITAL SIGNS MEDICATIONS Medication Instructions Dosage Frequency Start Date End Date Duration Status Tramadol HCl 50 mg Orally every 6 hrs 1 tablet as needed 6h Oct, 30 days Active RESULTS No Results PROCEDURES No Known procedures INSTRUCTIONS MEDICATIONS ADMINISTERED No Known Medications
--- OUTSIDE RECORDS SUMMARY | 2018-08-06 21:16 | XMS REPORT ---
Author Author VERONICA SPRINGER [facility] Address [address] [place] [address] Care Team Providers Care Verification Lead Name Role Phone VERONICA SPRINGER Unavailable PROBLEMS Type Condition ICD9-CM Code VYU49-XL Code Onset Dates Condition Status SNOMED Code Problem Dementia without behavioral disturbance, unspecified dementia type F03.90 Active 54742187 Problem Depression F32.9 Active 90034219 Problem Bipolar disorder, unspecified F31.9 Active 03342246 Problem Hypokalemia E87.6 Active 05275598 Problem Hypothyroidism, unspecified type E03.9 Active 51149501 Problem Type 2 diabetes mellitus without complications E11.9 Active 585455016 Problem Nausea and vomiting, unspecified intactability, vomiting of unspecified type R11.2 Active 63017817 Problem Essential (primary) hypertension I10 Active 89944570 Problem 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 Active 26480849 Problem Diarrhea, unspecified type R19.7 Active 42802087 Problem Subacute dyskinesia due to drug G24.01 Active 435318315 Problem Sciatica, left side M54.32 Active 85471584 Problem Atrial fibrillation with RVR I48.91 Active 692783232830505 Problem Constipation, unspecified constipation type K59.00 Active 30527545 Problem Cough R05 Active 34433296 Problem Nausea R11.0 Active 601983567 Problem Poor appetite R63.0 Active 80407656 Problem Seasonal allergic rhinitis due to pollen J30.1 Active 03443493 Problem Tongue pain K14.6 Active 53815999 Problem Primary insomnia F51.01 Active 0782591 Problem Seasonal allergies J30.2 Active 009202501 Problem Restless leg syndrome G25.81 Active 02396891 Problem Gastroesophageal reflux disease, esophagitis presence not specified K21.9 Active 141536775 Problem Dizziness R42 Active 896707637 Problem Chronic atrial fibrillation I48.2 Active 214615169 Problem Pain R52 Active 36963979 Problem Neuropathy G62.9 Active 095133079 Problem Allergic rhinitis, unspecified J30.9 Active 41681048 ALLERGIES No Information ENCOUNTERS Encounter Location Date Diagnosis [place] [id number] [place] [id number] Dec, [facility] [address] [place], [place] [id number] Dec, Dementia without behavioral disturbance, unspecified dementia type F03.90 [place] [address] [address] [place] [id number] [place] [address]907 2546 Nov, [facility] [address] [place], [place] [id number] Oct, Sciatica, left side M54.32 [place] [address] [place] [id number] [place] [id number] Oct, Pain of left hip joint M25.[address] [id number] Sep, Dementia without behavioral disturbance, unspecified dementia type F03.90 [place] [address] [address] [place] [id number] [place] [address] 61546- 6226 14 Jul, 2017 Atrial fibrillation with RVR I48.[address] [id number] Jul, 2017 Tongue pain K14.6 [place] [id number] [id number] Jul, [place] [address] [place] [id number] [place] [id number] Jul, [facility] [address] [place] [phone] Jun, Allergic rhinitis, unspecified J30.9 ; Poor appetite R63.0 and Primary insomnia F51.01 [place] [address] [address] May, Gastroesophageal reflux disease, esophagitis presence not specified K21.9 [place] [id number] [place] [id number] May, [facility] [address] [place] [id number] Apr, Cervicalgia M54.2 and Depression F32.9 [place] [address] [place] [id number] [place] [address] 21441- 6862 Apr, [place] [address] [address] [place] [id number] [place] [address] 84753- 4872 Apr, [place] [address] [place] [id number] [place] [address] 58537- 8785 Apr, [facility] [address] [place] [id number] Feb, Dementia without behavioral disturbance, unspecified dementia type F03.90 and Depression F32.9 [place] [address] [place] [id number] [place] [address] 19079- 4620 Dec, [place] [id number] [place] [address]994- 4496 Dec, [place] [address] [place] [id number] [place] [address] 86233- 8455 Dec, [facility] [address] [id number] Dec, Upper respiratory tract infection, unspecified type J06.9 and Cellulitis of nose, external J34.0 [place] [id number] [place] [address] 68389- 2548 Nov, 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 [place] [address] [place] [id number] [place] [address]26- 0264 Oct, [place] [id number] [place] [address]85- 7079 Oct, Seasonal allergies J30.2 ; Dizziness R42 ; Nausea R11.0 and Cough R05 [facility] [address] [id number] Oct, Bipolar disorder, unspecified F31.9 [place] [address] [id number] [address] Oct, [facility] [address] [id number] Aug, Seasonal allergic rhinitis due to pollen J30.1 [place] [address] [address] Aug, [facility] [address] [id number] Jul, Depression F32.9 and Shakes R25.[address] [facility] [address] [id number] Jun, Depression F32.9 [place] [address] [place] [id number] [place] [address] 80033- 7716 May, 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 [place] [address] [place] [id number] [place] [address] 60501- 5076 May, [place] [address] [place] [id number] [place] [id number]- 9086 March, Easy bruising R23.8 [place] [address] [place] [address] 63838- 9346 March, 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 [id number] March, Essential (primary) hypertension I10 ; Chronic [...] R05 and Dementia w behavior dist F03.91 [place] [address] [place] [address] 29614- 5718 Feb, [place] [address] [place] [id number] [place] [address] 03153- 7260 Feb, Low back pain M54.5 [place] [address] [place] [id number] [place] [address] 54422- 5959 Jan, Cough R05 and Diarrhea R19.7 [place] [address] [place] [id number] [place] [address] 63178- 8770 Jan, [place] [address] [place] [id number] [place] [address] 36032- 7309 Jan, Depression F32.9 and Dementia without behavioral disturbance , unspecified dementia type F03.90 [place] [address] [address] Jan, [facility] [address] [place] [id number] Dec, Dementia without behavioral disturbance, unspecified dementia type F03.90 and Depression F32.9 [place] [address] [place] [address] 10956- 0010 Dec, [place] [address] [place] [address] 40328- 2907 Dec, [place] [address] [place] [address] 89250- 2673 Dec, [place] [address] [place] [id number] [place] [address] 57766- 9256 Oct, [facility] [address] [place] [id number] Oct, Dementia without behavioral disturbance, unspecified dementia type F03.90 and Depression F32.9 [place] [address] [address] Jul, Cough 786.2 and Diarrhea 787.91 [facility] [address] [place] [id number] May, Depressive disorder, not elsewhere classified 311 [facility] [address] [address] March, Diarrhea 787.91 ; Depression 311 and Dementia 294.20 [facility] [address] [id number] [address]99 Feb, [facility] [address] [place] [id number] [place] [address] 476121- 4828 Feb, [facility] [address] [place] [id number] Jan, [facility] [address] [place] [address] 05227- 6712 Jan, [facility] [address] [address]59 Dec, [facility] [address] [place] [address] 84209- 4153 Dec, [facility] [address] [address] 6703 Dec, [facility] [address] [place] [id number] Dec, [facility] [address] [address] 6[address] Aug, [facility] [address] [address] 0114 Aug, [facility] [address] [address]- 3606 Aug, [facility] [address] [place] [id number] Aug, [facility] [address] [place] [address] 42550- 2563 Jul, [facility] [address] [id number] [place] [address]- 67[address] Jul, [facility] [address] [place] [id number] Jun, [facility] [address] [id number] [place] [address]- 6468 Jun, [facility] [address] [id number] [place] [address]- 0158 Jun, [facility] [address] [id number] [place] [address]- 3712 Jun, [facility] [address] [id number] [place] [address]- 3619 Jun, [facility] [address] [id number] [place] [address]- 8059 Jun, [facility] [address] [place] [id number] Jun, [facility] [address] [id number] [place] [address]- 0477 Jun, [facility] [address] [id number] [place] [address]- 9357 May, [facility] [place] [facility] [address] [id number] [place] [address]- 0776 May, [facility] [place] [facility] [address] [id number] [address]- 5111 May, [facility] [place] [facility] [address] [id number] [place] [address] May, [facility] [place] [facility] [address] [id number] [place] [address]- 9768 May, [facility] [place] [facility] [address] [id number] [place] [address]- 2618 May, [facility] [address] [facility] [id number] May, [facility] [place] [facility] [address] [id number] [place] [address]- 2765 May, [facility] [place] [facility] [address] [id number] [place] [address]- 1180 Apr, [facility] [place] [facility] [address] [id number] [place] [address]- 6115 Apr, [facility] [place] [facility] [address] [id number] [place] [address]- 8119 Apr, [facility] [place] [facility] [address] [id number] [place] [address]- 1708 Apr, [facility] [place] [facility] [address] [id number] [place] [address]- 4275 Apr, [facility] [place] [facility] [address] [id number] [place] [address]- 4863 Apr, [facility] [place] [facility] [address] [id number] [place] [address]- 0752 Apr, [facility] [place] [facility] [address] [id number] [place] [address]- 1885 Apr, [facility] [place] [facility] [address] [id number] [place] [address]- 2458 Apr, [facility] [place] [facility] [address] [id number] [place] [address]- 2496 Apr, [facility] [place] [facility] [address] [id number] [address]- 8292 Apr, [facility] [place] [facility] [address] [id number] [place] [address]- 9396 Apr, [facility] [address] [place] [id number] March, [facility] [place] [facility] [address] [id number] [place] [address]- 4539 March, [facility] [place] [facility] [address] [id number] [place] [address]- 9968 March, [facility] [address] [facility] [id number] [place] [address]- 8514 March, [facility] [address] [facility] [id number] [place] [address]- 5461 March, [facility] [address] [facility] [id number] [place] [address]- 4284 March, [facility] [address] [facility] [id number] [place] Oct, [facility] [address] [facility] [id number] [address]- 7057 Oct, IMMUNIZATIONS No Known Immunizations SOCIAL HISTORY Never Assessed REASON FOR VISIT Refill request PLAN OF CARE VITAL SIGNS MEDICATIONS No Known Medications RESULTS No Results PROCEDURES No Known procedures INSTRUCTIONS MEDICATIONS ADMINISTERED No Known Medications
--- OUTSIDE RECORDS SUMMARY | 2018-08-06 21:16 | XMS REPORT ---
Author Author VERONICA SPRINGER [facility] Address [address] [place] [address] Care Team Providers Care Auto Wrecker Name Role Phone VERONICA SPRINGER Unavailable PROBLEMS Type Condition ICD9-CM Code [id number] Code Onset Dates Condition Status SNOMED Code Problem Depression F32.9 Active 36846548 Problem Diarrhea, unspecified type R19.7 Active 00002264 Problem Dementia without behavioral disturbance, unspecified dementia type F03.90 Active 60100757 Problem Neuropathy G62.9 Active 058878550 Problem Cough R05 Active 55058317 Problem Nausea R11.0 Active 836129969 Problem Bipolar disorder, unspecified F31.9 Active 05709764 Problem Allergic rhinitis, unspecified J30.9 Active 81410466 Problem Poor appetite R63.0 Active 73918369 Problem Primary insomnia F51.01 Active 0007889 Problem Restless leg syndrome G25.81 Active 79607439 Problem Constipation, unspecified constipation type K59.00 Active 58770908 Problem 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 Active 30709444 Problem Chronic atrial fibrillation I48.2 Active 214535410 Problem Type 2 diabetes mellitus without complications E11.9 Active 943615898 Problem Seasonal allergic rhinitis due to pollen J30.1 Active 97345461 Problem Essential (primary) hypertension I10 Active 89081299 Problem Dizziness R42 Active 222637015 Problem Hypothyroidism, unspecified type E03.9 Active 06650848 Problem Gastroesophageal reflux disease, esophagitis presence not specified K21.9 Active 451410243 Problem Nausea and vomiting, unspecified intactability, vomiting of unspecified type R11.2 Active 21154367 Problem Pain R52 Active 35985439 Problem Hypokalemia E87.6 Active 53845764 Problem Seasonal allergies J30.2 Active 595791266 Problem Subacute dyskinesia due to drug G24.01 Active 531890295 ALLERGIES Unknown Allergies SOCIAL HISTORY No smoking Hx information available PLAN OF CARE VITAL SIGNS MEDICATIONS No Known Medications RESULTS No Results PROCEDURES No Known procedures IMMUNIZATIONS No Known Immunizations
--- OUTSIDE RECORDS SUMMARY | 2018-08-06 21:17 | XMS REPORT ---
Author Author BEVERLY BALLESTEROS [facility] Address [address] [place] [address] Care Team Providers Care Sequins Spooler Name Role Phone BEVERLY BALLESTEROS Unavailable PROBLEMS Type Condition ICD9-CM Code JUR75-ON Code Onset Dates Condition Status SNOMED Code Problem Dementia without behavioral disturbance, unspecified dementia type F03.90 Active 63477768 Problem Depression F32.9 Active 12060679 Problem Bipolar disorder, unspecified F31.9 Active 45319826 Problem Hypokalemia E87.6 Active 86712310 Problem Type 2 diabetes mellitus without complications E11.9 Active 690497618 Problem Nausea and vomiting, unspecified intactability, vomiting of unspecified type R11.2 Active 03694378 Problem Essential (primary) hypertension I10 Active 94202681 Problem 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 Active 44939308 Problem Nausea R11.0 Active 491981925 Problem Subacute dyskinesia due to drug G24.01 Active 153392341 Problem Seasonal allergic rhinitis due to pollen J30.1 Active 24995010 Problem Diarrhea, unspecified type R19.7 Active 38221671 Problem Acute bilateral low back pain with left-sided sciatica M54.42 Active 936162737 Problem Sciatica, left side M54.32 Active 22242271 Problem Gastroesophageal reflux disease, esophagitis presence not specified K21.9 Active 047711095 Problem Constipation, unspecified constipation type K59.00 Active 93610257 Problem Cough R05 Active 88497963 Problem Primary insomnia F51.01 Active 6574376 Problem Poor appetite R63.0 Active 99787461 Problem Atrial fibrillation with RVR I48.91 Active 964713430505039 Problem Tongue pain K14.6 Active 70967849 Problem Restless leg syndrome G25.81 Active 27813080 Problem Neuropathy G62.9 Active 664220524 Problem Dizziness R42 Active 317489506 Problem Seasonal allergies J30.2 Active 031166268 Problem Pain R52 Active 05130531 Problem Hypothyroidism, unspecified type E03.9 Active 59778047 Problem Allergic rhinitis, unspecified J30.9 Active 47337281 Problem Chronic atrial fibrillation I48.2 Active 509082981 ALLERGIES No Information ENCOUNTERS Encounter Location Date Diagnosis [place] [address] [address] May, [facility] [address] [place] [id number] May, Low back pain M54.5 [place] [address] [place] [id number] [place] [address] May, [facility] [address] [place] [id number] Apr, Callus of foot L84 [place] [address] [place] [id number] [place] [address] Apr, [facility] [address] [place] [id number] Apr, Acute bilateral low back pain with left-sided sciatica M54.42 [place] [address] [place] [id number] [place] [address] Feb, [facility] [address] [place] [id number] Feb, Otalgia of right ear H92.01 [place] [address] [place] [id number] [place] [address] 15[address] Jan, Cough R05 and Pain of left hip joint M25.552 [place] [address] [place] [id number] [place] [id number] Dec, [facility] [address] [place] [id number] Dec, Dementia without behavioral disturbance, unspecified dementia type F03.90 [place] [address] [place] [id number] [place] [address] Nov, [facility] [address] [place] [id number] Oct, Sciatica, left side M54.32 [facility] [place] [id number] [place] [id number] Oct, Pain of left hip joint M25.[address] [facility] [address] [id number] Sep, Dementia without behavioral disturbance, unspecified dementia type F03.90 [place] [address] [place] [address]42- [address] 14 Jul, 2017 Atrial fibrillation with RVR I48.91 [facility] [address] [place] [id number] 12 Jul, 2017 Tongue pain K14.6 [place] [address] [place] [id number] [place] [id number] 05 Jul, 2017 [place] [address] [place] [id number] [place] [id number] Jul, [facility] [address] [id number] Jun, Allergic rhinitis, unspecified J30.9 ; Poor appetite R63.0 and Primary insomnia F51.01 [place] [address] [address] May, Gastroesophageal reflux disease, esophagitis presence not specified K21.9 [place] [id number] [id number] May, [facility] [address] [id number] Apr, Cervicalgia M54.2 and Depression F32.9 [place] [address] [place] [id number] [address] Apr, [place] [address] [place] [id number] [place] [address]48[address] 6[address] Apr, [place] [address] [address] Apr, [facility] [address] [id number] Feb, Dementia without behavioral disturbance, unspecified dementia type F03.90 and Depression F32.9 [place] [address] [place] [address]33- 4517 Dec, [place] [address] [place] [id number] [place] [address] 75582- 8052 Dec, [place] [address] [place] [id number] [place] [address]23- 2270 Dec, [facility] [address] [id number] Dec, Upper respiratory tract infection, unspecified type J06.9 and Cellulitis of nose, external J34.0 [place] [id number] [place] [address]- [address]1 Nov, 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 [place] [id number] [place] [address] Oct, [place] [id number] [place] [address]- 39[address] Oct, Seasonal allergies J30.2 ; Dizziness R42 ; Nausea R11.0 and Cough R05 [facility] [address] [id number] Oct, Bipolar disorder, unspecified F31.9 [place] [id number] [place] [address]- [address] Oct, [facility] [address] [id number] Aug, Seasonal allergic rhinitis due to pollen J30.1 [place] [id number] [place] [address] 08946- 4650 Aug, [facility] [address] [id number] Jul, Depression F32.9 and Shakes R25.[address] [facility] [address] [id number] Jun, Depression F32.9 [place] [address] [address] May, 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 [place] [address] [place] [id number] [place] [address]08- [address] May, [place] [address] [place] [id number] [place] [address] 8[address]30- 2516 March, Easy bruising R23.8 [place] [address] [place] [id number] [place] [address] 4[address] 35[address] March, 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 [facility] [place] [address] [place] [id number] March, Essential (primary) hypertension I10 ; Chronic [...] R05 and Dementia w behavior dist F03.91 [place] [address] [place] [address] 92911- 1811 Feb, [place] [address] [place] [id number] [place] [address] 18409- 6825 Feb, Low back pain M54.5 [place] [address] [place] [id number] [place] [address] 29466- 6277 Jan, Cough R05 and Diarrhea R19.7 [place] [address] [address] Jan, [facility] [address] [place] [address] 38256- 5693 Jan, Depression F32.9 and Dementia without behavioral disturbance , unspecified dementia type F03.90 [facility] [address] [address] Jan, [facility] [address] [id number] Dec, Dementia without behavioral disturbance, unspecified dementia type F03.90 and Depression F32.9 [place] [address] [place] [id number] [place] [address] 84798- 1418 Dec, [place] [address] [place] [id number] [place] [address] 92309- 8783 Dec, [place] [address] [place] [id number] [place] [address] 00638- 1735 Dec, [place] [address] [place] [address] 51207- 3870 Oct, [facility] [address] [id number] Oct, Dementia without behavioral disturbance, unspecified dementia type F03.90 and Depression F32.9 [place] [address] [place] [address] 92825- 6970 Jul, Cough 786.2 and Diarrhea 787.[address] [facility] [address] [id number] May, Depressive disorder, not elsewhere classified [address] [place] [address] [place] [id number] [place] [address] 96608- 1872 March, Diarrhea 787.91 ; Depression 311 and Dementia 294.20 [place] [address] [address] Feb, [place] [address] [place] [id number] [address] Feb, [facility] [address] [facility] [id number] Jan, [facility] [address] [id number] [place] [address] Jan, [facility] [address] [id number] [address] Dec, [facility] [address] [id number] [place] [address]7 Dec, [facility] [address] [id number] [place] [address]- [address] Dec, [facility] [address] [facility] [id number] Dec, [facility] [address] [id number] [address] Aug, [facility] [address] [id number] [place] [address] 7[address] Aug, [facility] [address] [id number] [place] [address] 9[address] Aug, [facility] [address] [facility] [id number] Aug, [facility] [address] [id number] [address]- [address] Jul, [facility] [address] [id number] [address]- 3261 Jul, [facility] [address] [place] [id number] Jun, [facility] [address] [id number] [place] [address]- 68[address] Jun, [facility] [address] [id number] [address]- 3500 Jun, [facility] [address] [id number] [place] [address]- 4767 Jun, [facility] [address] [id number] [place] [address]- 0751 Jun, [facility] [place] [facility] [address] [id number] [place] [address]- 1350 Jun, [facility] [address] [place] [id number] Jun, [facility] [place] [facility] [address] [id number] [place] [address]- 4586 Jun, [facility] [place] [facility] [address] [id number] [place] [address]- 4125 May, [facility] [place] [facility] [address] [id number] [place] [address]- 8290 May, [facility] [place] [facility] [address] [id number] [place] [address]- 3814 May, [facility] [place] [facility] [address] [id number] [place] [address]- 2871 May, [facility] [place] [facility] [address] [id number] [place] [address]- 2987 May, [facility] [place] [facility] [address] [id number] [place] [address]- 0436 May, [facility] [address] [place] [id number] May, [facility] [place] [facility] [address] [id number] [place] [address]- 2062 May, [facility] [place] [facility] [address] [id number] [place] [address]- 1206 Apr, [facility] [place] [facility] [address] [id number] [place] [address]- 5468 Apr, [facility] [place] [facility] [address] [id number] [place] [address]- 7879 Apr, [facility] [place] [facility] [address] [id number] [place] [address]- 1151 Apr, [facility] [place] [facility] [address] [id number] [place] [address]- 3414 Apr, [facility] [place] [facility] [address] [id number] [place] [address]- 7744 Apr, [facility] [place] [facility] [address] [id number] [place] [address]- 1499 Apr, [facility] [place] [facility] [address] [id number] [place] [address]- 2497 Apr, [facility] [place] [facility] [address] [id number] [place] [address]- 6970 Apr, [facility] [place] [facility] [address] [id number] [place] [address]- 5087 Apr, [facility] [place] [facility] [address] [id number] [place] [address]- 5412 Apr, [facility] [place] [facility] [address] [id number] [place] [address]- 3201 Apr, [facility] [address] [place] [id number] March, [facility] [place] [facility] [address] [id number] [place] [address]- 5467 March, [facility] [place] [facility] [address] [id number] [place] [address]- 9954 March, [facility] [place] [facility] [address] [id number] [place] [address]- 8262 March, [facility] [place] [facility] [address] [id number] [place] [address]- 4901 March, [facility] [place] [facility] [address] [id number] [place] [address]- 6934 March, [facility] [place] [facility] [address] [id number] [place] [address]- 30[address] Oct, [facility] [place] [facility] [address] [id number] [place] [address]- 8828 Oct, IMMUNIZATIONS No Known Immunizations SOCIAL HISTORY Never Assessed REASON FOR VISIT Dc meds PLAN OF CARE VITAL SIGNS MEDICATIONS Unknown Medications RESULTS No Results PROCEDURES No Known procedures INSTRUCTIONS MEDICATIONS ADMINISTERED No Known Medications MEDICAL (GENERAL) HISTORY Type Description Date Medical 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
--- OUTSIDE RECORDS SUMMARY | 2018-08-06 21:17 | XMS REPORT ---
Author Author BEVERLY BALLESTEROS [facility] Address [address] [place] [address] Care Team Providers Care Aquatic Instructor Name Role Phone BEVERLY BALLESTEROS Unavailable PROBLEMS Type Condition ICD9-CM Code OPU79-TD Code Onset Dates Condition Status SNOMED Code Problem Dementia without behavioral disturbance, unspecified dementia type F03.90 Active 36014089 Problem Depression F32.9 Active 68372442 Problem Bipolar disorder, unspecified F31.9 Active 72321065 Problem Hypothyroidism, unspecified type E03.9 Active 86226553 Problem Hypokalemia E87.6 Active 40382041 Problem Nausea and vomiting, unspecified intactability, vomiting of unspecified type R11.2 Active 78043672 Problem Type 2 diabetes mellitus without complications E11.9 Active 593015377 Problem 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 Active 16054843 Problem Subacute dyskinesia due to drug G24.01 Active 399763502 Problem Pain R52 Active 18418317 Problem Atrial fibrillation with RVR I48.91 Active 124343833428630 Problem Tongue pain K14.6 Active 26662040 Problem Cough R05 Active 43267808 Problem Nausea R11.0 Active 116040050 Problem Essential (primary) hypertension I10 Active 46260875 Problem Seasonal allergic rhinitis due to pollen J30.1 Active 97705145 Problem Diarrhea, unspecified type R19.7 Active 70272063 Problem Primary insomnia F51.01 Active 1591789 Problem Poor appetite R63.0 Active 97661171 Problem Constipation, unspecified constipation type K59.00 Active 19128186 Problem Gastroesophageal reflux disease, esophagitis presence not specified K21.9 Active 254069674 Problem Allergic rhinitis, unspecified J30.9 Active 14995928 Problem Chronic atrial fibrillation I48.2 Active 329503585 Problem Restless leg syndrome G25.81 Active 97941415 Problem Neuropathy G62.9 Active 780883954 Problem Dizziness R42 Active 198186578 Problem Seasonal allergies J30.2 Active 401496117 ALLERGIES No Information SOCIAL HISTORY Never Assessed PLAN OF CARE Activity Details Follow Up 2 Months Reason: VITAL SIGNS MEDICATIONS Medication Instructions Dosage Frequency Start Date End Date Duration Status Zithromax Z-Domingo 250 MG Orally Once a day 2 tablets on the first day, then 1 tablet daily for 4 days 24h Dec, Dec, 5 day(s) Active Promethazine-Codeine 6.25-10 MG/5ML Orally every 6 hrs 5 ml as needed 6h Dec, Dec, 07 days Active RESULTS No Results PROCEDURES Procedure Date Ordered Result Body Site Stable Visit (10 minutes) Dec 23, 2016 IMMUNIZATIONS No Known Immunizations
--- OUTSIDE RECORDS SUMMARY | 2018-08-06 21:17 | XMS REPORT ---
Author Author BEVERLY BALLESTEROS [facility] Address [address] [place] [address] Care Team Providers Care Trade Promotion Analyst Name Role Phone BEVERLY BALLESTEROS Unavailable PROBLEMS Type Condition ICD9-CM Code VYU50-UB Code Onset Dates Condition Status SNOMED Code Problem Dementia without behavioral disturbance, unspecified dementia type F03.90 Active 67882568 Problem Depression F32.9 Active 55835145 Problem Bipolar disorder, unspecified F31.9 Active 87166439 Problem Hypokalemia E87.6 Active 32045239 Problem Hypothyroidism, unspecified type E03.9 Active 74846273 Problem Type 2 diabetes mellitus without complications E11.9 Active 988752990 Problem Nausea and vomiting, unspecified intactability, vomiting of unspecified type R11.2 Active 91308081 Problem Essential (primary) hypertension I10 Active 17035837 Problem 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 Active 31021135 Problem Diarrhea, unspecified type R19.7 Active 26425825 Problem Subacute dyskinesia due to drug G24.01 Active 707980131 Problem Sciatica, left side M54.32 Active 40734860 Problem Atrial fibrillation with RVR I48.91 Active 417520983476467 Problem Constipation, unspecified constipation type K59.00 Active 49874103 Problem Cough R05 Active 52840776 Problem Nausea R11.0 Active 781155343 Problem Poor appetite R63.0 Active 06665374 Problem Seasonal allergic rhinitis due to pollen J30.1 Active 53790892 Problem Tongue pain K14.6 Active 99721773 Problem Primary insomnia F51.01 Active 9093560 Problem Seasonal allergies J30.2 Active 280729010 Problem Restless leg syndrome G25.81 Active 53504493 Problem Gastroesophageal reflux disease, esophagitis presence not specified K21.9 Active 512270979 Problem Dizziness R42 Active 718533450 Problem Chronic atrial fibrillation I48.2 Active 171751776 Problem Pain R52 Active 48984382 Problem Neuropathy G62.9 Active 310096558 Problem Allergic rhinitis, unspecified J30.9 Active 28741949 ALLERGIES No Information ENCOUNTERS Encounter Location Date Diagnosis [place] [address] [place] [address] 81682- 5690 Feb, [facility] [address] [id number] Feb, Otalgia of right ear H92.01 [place] [address] [place] [id number] [place] [address] 99777- 5962 Jan, Cough R05 and Pain of left hip joint M25.552 [place] [address] [place] [id number] [place] [address] [id number] Dec, [facility] [address] [id number] Dec, Dementia without behavioral disturbance, unspecified dementia type F03.90 [place] [address] [place] [id number] [place] [address] 81547- 3392 Nov, [facility] [address] [place] [id number] Oct, Sciatica, left side M54.32 [place] [address] [place] [id number] [place] [address] [id number] Oct, Pain of left hip joint M25.[address] [id number] Sep, Dementia without behavioral disturbance, unspecified dementia type F03.90 [place] [address] [place] [address] 98080- 6049 14 Jul, 2017 Atrial fibrillation with RVR I48.[address] [facility] [address] [id number] Jul, Tongue pain K14.6 [place] [address] [place] [id number] [place] [address] [id number] Jul, [place] [address] [place] [id number] [place] [address] [id number] Jul, [facility] [address] [place] [id number] Jun, Allergic rhinitis, unspecified J30.9 ; Poor appetite R63.0 and Primary insomnia F51.01 [place] [address] [place] [id number] [place] [address] [id number] May, Gastroesophageal reflux disease, esophagitis presence not specified K21.9 [facility] [address] [place] [id number] [place] [address] [id number] May, [facility] [address] [id number] Apr, Cervicalgia M54.2 and Depression F32.9 [place] [address] [address]- [address] Apr, [place] [address] [place] [id number] [place] [address] 17195- 7752 Apr, [place] [address] 9[address]40- 0055 Apr, [facility] [address] [id number] Feb, Dementia without behavioral disturbance, unspecified dementia type F03.90 and Depression F32.9 [place] [address] [place] [id number] [place] [address] 22660- 8351 24 Dec, 2016 [place] [address] [place] [id number] [place] [address] 58705- 1225 Dec, [facility] [place] [address] [place] [id number] [place] [address] 13655- 4514 14 Dec, 2016 [facility] [address] [place] [phone] Dec, Upper respiratory tract infection, unspecified type J06.9 and Cellulitis of nose, external J34.0 [place] [address] [place] [address] 19512- 9737 Nov, 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 [place] [address] [place] [address] Oct, [place] [address] [place] [id number] [place] [address] 45918- 4900 Oct, Seasonal allergies J30.2 ; Dizziness R42 ; Nausea R11.0 and Cough R05 [facility] [address] [id number] Oct, Bipolar disorder, unspecified F31.9 [place] [address] [address]77- 6424 Oct, [facility] [address] [id number] Aug, Seasonal allergic rhinitis due to pollen J30.1 [place] [address] [place] [id number] [place] [address] 55529- 7199 Aug, [facility] [address] [id number] Jul, Depression F32.9 and Shakes R25.[address] [facility] [address] [id number] Jun, Depression F32.9 [place] [address] [place] [id number] [place] [address] 99228- 0695 May, 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 [place] [address] [place] [id number] [place] [address] 43534- 4906 May, [place] [address] [place] [id number] [place] [address] 38915- 9329 March, Easy bruising R23.8 [place] [address] [place] [id number] [place] [address] 63527- 1261 March, 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 [facility] [address] [id number] March, Essential (primary) hypertension I10 ; Chronic [...] R05 and Dementia w behavior dist F03.91 [place] [address] 59007- 9531 14 Feb, 2016 [place] [address] 50013- 9678 Feb, Low back pain M54.5 [place] [address] 36151- 7230 Jan, Cough R05 and Diarrhea R19.7 [place] [address] 14906- 2686 Jan, [place] [address] 20490- 4119 Jan, Depression F32.9 and Dementia without behavioral disturbance , unspecified dementia type F03.90 [place] [address] [place] [id number] [place] [address] 57789- 1548 08 Jan, 2016 [facility] [address] [place] [id number] Dec, Dementia without behavioral disturbance, unspecified dementia type F03.90 and Depression F32.9 [place] [address] [place] [id number] [place] [address] 87027- 3182 Dec, [place] [address] 76942- 1635 Dec, [facility] [place] [address] [address] Dec, [facility] [place] [address] [place] [id number] [place] [address] 15579- 9258 Oct, [facility] [address] [place] [phone] Oct, Dementia without behavioral disturbance, unspecified dementia type F03.90 and Depression F32.9 [facility] [place] [address] [place] [id number] [place] [address] 49099- 1684 Jul, Cough 786.2 and Diarrhea 787.91 [facility] [address] [place] [id number] May, Depressive disorder, not elsewhere classified [address] [place] [address] [place] [id number] [place] [address] 26976- 4944 March, Diarrhea 787.91 ; Depression 311 and Dementia 294.20 [facility] [place] [address] [place] [address] 22984- 5171 Feb, [facility] [place] [address] [place] [id number] [place] [address] 10389- 6560 Feb, [facility] [address] [place] [phone] Jan, [facility] [place] [address] [place] [address]- 1167 Jan, [facility] [place] [address] [place] [address] 08156- 2150 Dec, [facility] [place] [address] [place] [address]- 5351 Dec, [facility] [place] [address] [place] [address] 67635- 3656 Dec, [facility] [address] [place] [id number] Dec, [facility] [place] [address] [place] [address] 50359- 4670 Aug, [facility] [address] [id number] [place] [address]- 8[address] Aug, [facility] [address] [id number] [place] [address]- 5096 Aug, [facility] [address] [facility] [place] [id number] Aug, [facility] [address] [id number] [place] [address]- 3423 Jul, [facility] [address] [id number] [place] [address]- 5288 Jul, [facility] [address] [facility] [id number] Jun, [facility] [address] [id number] [place] [address]- 4200 Jun, [facility] [address] [id number] [place] [address]- 9636 Jun, [facility] [address] [id number] [place] [address]- 1460 Jun, [facility] [address] [id number] [place] [address]- 9298 Jun, [facility] [address] [id number] [place] [address]- 7056 Jun, [facility] [address] [facility] [id number] Jun, [facility] [address] [id number] [place] [address]- 3548 Jun, [facility] [place] [facility] [address] [id number] [place] [address]- 8874 May, [facility] [address] [id number] [place] [address]- 8116 May, [facility] [address] [id number] [place] [address]- 8599 May, [facility] [place] [facility] [address] [id number] [place] [address]- 9842 May, [facility] [place] [facility] [address] [id number] [place] [address]- 4246 May, [facility] [place] [facility] [address] [id number] [place] [address]- 5987 May, [facility] [address] [facility] [place] [id number] May, [facility] [place] [facility] [address] [id number] [place] [address]- 6469 May, [facility] [place] [facility] [address] [id number] [place] [address]- 7339 Apr, [facility] [place] [facility] [address] [id number] [place] [address]- 0218 Apr, [facility] [place] [facility] [address] [id number] [place] [address]- 9728 Apr, [facility] [place] [facility] [address] [id number] [place] [address]- 6531 Apr, [facility] [place] [facility] [address] [id number] [place] [address]- 5620 Apr, [facility] [place] [facility] [address] [id number] [place] [address]- 5817 Apr, [facility] [place] [facility] [address] [id number] [place] [address]- 0838 Apr, [facility] [place] [facility] [address] [id number] [place] [address]- 0268 Apr, [facility] [place] [facility] [address] [id number] [place] [address]- 1028 Apr, [facility] [place] [facility] [address] [id number] [place] [address]- 3674 Apr, [facility] [place] [facility] [address] [id number], [place] [address]- 2546 Apr, [facility] [place] [address] [facility] [id number], [place] [address]- 8302 Apr, [facility] [address] [place] [id number] March, [facility] [place] [address] [facility] [id number], [place] [address]- 9191 March, [facility] [place] [address] [facility] [id number], [place] [address]- 5180 March, [facility] [place] [address] [facility] [id number], [place] [address]- 9340 March, [facility] [place] [address] [address] March, [facility] [place] [address] [place] [id number] [address] 4073 March, [facility] [place] [address] [place] [id number] [address]- 3238 Oct, [facility] [place] [address] [place] [id number] [address]- [address]296 Oct, IMMUNIZATIONS No Known Immunizations SOCIAL HISTORY Never Assessed REASON FOR VISIT PA for [facility] PLAN OF CARE VITAL SIGNS MEDICATIONS Unknown Medications RESULTS No Results PROCEDURES No Known procedures INSTRUCTIONS MEDICATIONS ADMINISTERED No Known Medications
--- OUTSIDE RECORDS SUMMARY | 2018-08-06 21:17 | XMS REPORT ---
Author Author BEVERLY BALLESTEROS [facility] Address [address] [place] [address] Care Team Providers Care Central Supply Supervisor Name Role Phone BEVERLY BALLESTEROS Unavailable PROBLEMS Type Condition ICD9-CM Code LPX64-DL Code Onset Dates Condition Status SNOMED Code Problem Dementia without behavioral disturbance, unspecified dementia type F03.90 Active 53394105 Problem Depression F32.9 Active 63819568 Problem Bipolar disorder, unspecified F31.9 Active 57119009 Problem Hypokalemia E87.6 Active 92162264 Problem Hypothyroidism, unspecified type E03.9 Active 75959915 Problem Type 2 diabetes mellitus without complications E11.9 Active 320956676 Problem Nausea and vomiting, unspecified intactability, vomiting of unspecified type R11.2 Active 59914632 Problem Essential (primary) hypertension I10 Active 79269251 Problem 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 Active 91986741 Problem Diarrhea, unspecified type R19.7 Active 51000547 Problem Subacute dyskinesia due to drug G24.01 Active 215615634 Problem Sciatica, left side M54.32 Active 01810195 Problem Atrial fibrillation with RVR I48.91 Active 787490380188092 Problem Constipation, unspecified constipation type K59.00 Active 65233506 Problem Cough R05 Active 58545782 Problem Nausea R11.0 Active 694147237 Problem Poor appetite R63.0 Active 90688448 Problem Seasonal allergic rhinitis due to pollen J30.1 Active 18989712 Problem Tongue pain K14.6 Active 13819496 Problem Primary insomnia F51.01 Active 9375184 Problem Seasonal allergies J30.2 Active 181511033 Problem Restless leg syndrome G25.81 Active 75838252 Problem Gastroesophageal reflux disease, esophagitis presence not specified K21.9 Active 721485685 Problem Dizziness R42 Active 789254457 Problem Chronic atrial fibrillation I48.2 Active 459146986 Problem Pain R52 Active 53767352 Problem Neuropathy G62.9 Active 258200955 Problem Allergic rhinitis, unspecified J30.9 Active 09200784 ALLERGIES No Information ENCOUNTERS Encounter Location Date Diagnosis [place] [address] [place] [address] 59708- 2340 Feb, [facility] [address] [id number] Feb, Otalgia of right ear H92.01 [place] [address] [place] [id number] [place] [address] 90199- 0052 Jan, Cough R05 and Pain of left hip joint M25.552 [place] [address] [place] [id number] [place] [address] [id number] Dec, [facility] [address] [id number] Dec, Dementia without behavioral disturbance, unspecified dementia type F03.90 [place] [address] [place] [id number] [place] [address] 09574- 4123 Nov, [facility] [address] [place] [id number] Oct, Sciatica, left side M54.32 [place] [address] [place] [id number] [place] [address] [id number] Oct, Pain of left hip joint M25.[address] [id number] Sep, Dementia without behavioral disturbance, unspecified dementia type F03.90 [place] [address] [place] [address] 51676- 6226 14 Jul, 2017 Atrial fibrillation with RVR I48.[address] [facility] [address] [id number] Jul, Tongue pain K14.6 [place] [address] [place] [id number] [place] [address] [id number] Jul, [place] [address] [place] [id number] [place] [address] [id number] Jul, [facility] [address] [place] [id number] Jun, Allergic rhinitis, unspecified J30.9 ; Poor appetite R63.0 and Primary insomnia F51.01 [place] [address] [place] [id number] [place] [address] [id number] 7215 May, Gastroesophageal reflux disease, esophagitis presence not specified K21.9 [facility] [address] [place] [id number] [place] [address] [phone] May, [facility] [address] [id number] Apr, Cervicalgia M54.2 and Depression F32.9 [place] [address] [address]- [address] Apr, [place] [address] [place] [id number] [place] [address] 93848- 5248 Apr, [place] [address] 37792- 8088 Apr, [facility] [address] [id number] Feb, Dementia without behavioral disturbance, unspecified dementia type F03.90 and Depression F32.9 [place] [address] [place] [id number] [place] [address] 08123- 8652 24 Dec, 2016 [place] [address] [place] [id number] [place] [address] 84439- 7204 Dec, [facility] [address] [place] [id number] [place] [address] 28717- 5463 14 Dec, 2016 [facility] [address] [place] [id number] Dec, Upper respiratory tract infection, unspecified type J06.9 and Cellulitis of nose, external J34.0 [place] [address] [place] [address] 34114- 4483 Nov, 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 [place] [address] [place] [address] Oct, [place] [address] [place] [id number] [place] [address] 69065- 9960 Oct, Seasonal allergies J30.2 ; Dizziness R42 ; Nausea R11.0 and Cough R05 [facility] [address] [id number] Oct, Bipolar disorder, unspecified F31.9 [place] [address] 98274- 5796 Oct, [facility] [address] [id number] Aug, Seasonal allergic rhinitis due to pollen J30.1 [place] [address] [place] [id number] [place] [address] 08890- 8211 Aug, [facility] [address] [id number] Jul, Depression F32.9 and Shakes R25.[address] [facility] [address] [id number] Jun, Depression F32.9 [place] [address] [place] [id number] [place] [address] 71845- 7805 May, 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 [place] [address] [place] [id number] [place] [address] 00198- 5370 May, [place] [address] [place] [id number] [place] [address] 51590- 0355 March, Easy bruising R23.8 [place] [address] [place] [id number] [place] [address] 83628- 6647 March, 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 [facility] [address] [id number] March, Essential (primary) hypertension I10 ; Chronic [...] R05 and Dementia w behavior dist F03.91 [place] [address] [address]- 8115 14 Feb, 2016 [place] [address] 39918- 1315 Feb, Low back pain M54.5 [place] [address] 80662- 0323 Jan, Cough R05 and Diarrhea R19.7 [place] [address] 54026- 2382 Jan, [place] [address] 44202- 0316 Jan, Depression F32.9 and Dementia without behavioral disturbance , unspecified dementia type F03.90 [place] [address] [place] [id number] [place] [address] 59663- 6251 08 Jan, 2016 [facility] [address] [place] [id number] Dec, Dementia without behavioral disturbance, unspecified dementia type F03.90 and Depression F32.9 [place] [address] [place] [id number] [place] [address] 65410- 7070 Dec, [place] [address] 23346- 6604 Dec, [facility] [address] [address] Dec, [facility] [address] [place] [id number] [place] [address] 51485- 2447 Oct, [facility] [address] [place] [id number] Oct, Dementia without behavioral disturbance, unspecified dementia type F03.90 and Depression F32.9 [facility] [address] [place] [id number] [place] [address] 90269- 9590 Jul, Cough 786.2 and Diarrhea 787.91 [facility] [address] [place] [id number] May, Depressive disorder, not elsewhere classified 311 [place] [address] [place] [id number] [place] [address] 12653- 5537 March, Diarrhea 787.91 ; Depression 311 and Dementia 294.20 [facility] [address] [place] [address] 19656- 5484 Feb, [facility] [address] [place] [id number] [place] [address] 85282- 2511 Feb, [facility] [address] [place] [phone] Jan, [facility] [address] [address]- 9318 Jan, [facility] [address] [place] [address] 61401- 7272 Dec, [facility] [address] [address]- 1303 Dec, [facility] [address] [place] [address] 42903- 4836 Dec, [facility] [address] [place] [id number] Dec, [facility] [address] [place] [address] 29244- 2842 Aug, [facility] [address] [id number] [place] [address] 1367 Aug, [facility] [address] [id number] [place] [address]- 1026 Aug, [facility] [address] [facility] [place] [id number] Aug, [facility] [address] [id number] [place] [address]- 7179 Jul, [facility] [address] [id number] [place] [address]- 3203 Jul, [facility] [address] [facility] [place] [id number] Jun, [facility] [address] [id number] [place] [address]- 0888 Jun, [facility] [address] [id number] [place] [address]- 4797 Jun, [facility] [address] [id number] [place] [address]- 6432 Jun, [facility] [address] [id number] [place] [address]- 8862 Jun, [facility] [address] [id number] [place] [address]- 6889 Jun, [facility] [address] [facility] [id number] Jun, [facility] [address] [id number] [place] [address]- 1530 Jun, [facility] [place] [facility] [address] [id number] [place] [address]- 1684 May, [facility] [address] [id number] [place] [address]- 3260 May, [facility] [address] [id number] [place] [address]- 2767 May, [facility] [place] [facility] [address] [id number] [place] [address]- 1857 May, [facility] [place] [facility] [address] [id number] [place] [address]- 9305 May, [facility] [place] [facility] [address] [id number] [place] [address]- 2744 May, [facility] [address] [facility] [id number] May, [facility] [place] [facility] [address] [id number] [place] [address]- 1628 May, [facility] [place] [facility] [address] [id number] [place] [address]- 1104 Apr, [facility] [place] [facility] [address] [id number] [place] [address]- 2672 Apr, [facility] [place] [facility] [address] [id number] [place] [address]- 2853 Apr, [facility] [place] [facility] [address] [id number] [place] [address]- 6635 Apr, [facility] [place] [facility] [address] [id number] [place] [address]- 0068 Apr, [facility] [place] [facility] [address] [id number] [place] [address]- 7793 Apr, [facility] [place] [facility] [address] [id number] [place] [address]- 9336 Apr, [facility] [place] [facility] [address] [id number] [place] [address]- 8105 Apr, [facility] [place] [facility] [address] [id number] [place] [address]- 5361 Apr, [facility] [place] [facility] [address] [id number] [place] [address]- 3860 Apr, [facility] [place] [facility] [address] [id number] [address]- 2546 Apr, [facility] [address] [facility] [id number] [address]- 7669 Apr, [facility] [address] [place] [place] [id number] March, [facility] [address] [facility] [id number] [address]- 38[address] March, [facility] [address] [facility] [id number] [address]- 9446 March, [facility] [address] [facility] [id number] [address]- 9505 March, [facility] [address] [facility] [id number] [address]- 3122 March, [facility] [address] [facility] [id number] [address]- 4025 March, [facility] [address] [facility] [id number] [address]- 4574 Oct, [facility] [address] [facility] [id number] [address] Oct, IMMUNIZATIONS No Known Immunizations SOCIAL HISTORY Never Assessed REASON FOR VISIT nasal congestion PLAN OF CARE VITAL SIGNS MEDICATIONS Medication Instructions Dosage Frequency Start Date End Date Duration Status Flonase 50 MCG/ACT Nasally twice a day 1 spray in each nostril 12h Jul, 30 day(s) Active RESULTS No Results PROCEDURES No Known procedures INSTRUCTIONS MEDICATIONS ADMINISTERED No Known Medications
--- OUTSIDE RECORDS SUMMARY | 2018-08-06 21:18 | XMS REPORT ---
Author Author BEVERLY BALLESTEROS [facility] Address [address] [place] [address] Care Team Providers Care Road Packer Operator Name Role Phone BEVERLY BALLESTEROS Unavailable PROBLEMS Type Condition ICD9-CM Code LSS18-LL Code Onset Dates Condition Status SNOMED Code Problem Depression F32.9 Active 47253499 Problem Diarrhea, unspecified type R19.7 Active 58155650 Problem Dementia without behavioral disturbance, unspecified dementia type F03.90 Active 77304137 Problem Neuropathy G62.9 Active 383559579 Problem Cough R05 Active 67651162 Problem Nausea R11.0 Active 165372062 Problem Bipolar disorder, unspecified F31.9 Active 81066602 Problem Allergic rhinitis, unspecified J30.9 Active 71284933 Problem Poor appetite R63.0 Active 85409452 Problem Primary insomnia F51.01 Active 3901382 Problem Restless leg syndrome G25.81 Active 77084577 Problem Constipation, unspecified constipation type K59.00 Active 87046746 Problem 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 Active 95347545 Problem Chronic atrial fibrillation I48.2 Active 704148115 Problem Type 2 diabetes mellitus without complications E11.9 Active 532690056 Problem Seasonal allergic rhinitis due to pollen J30.1 Active 36891612 Problem Essential (primary) hypertension I10 Active 40987045 Problem Dizziness R42 Active 565661615 Problem Hypothyroidism, unspecified type E03.9 Active 80102672 Problem Gastroesophageal reflux disease, esophagitis presence not specified K21.9 Active 057099098 Problem Nausea and vomiting, unspecified intactability, vomiting of unspecified type R11.2 Active 78818217 Problem Pain R52 Active 78993288 Problem Hypokalemia E87.6 Active 64731631 Problem Seasonal allergies J30.2 Active 094175371 Problem Subacute dyskinesia due to drug G24.01 Active 068689194 ALLERGIES Unknown Allergies SOCIAL HISTORY No smoking Hx information available PLAN OF CARE VITAL SIGNS MEDICATIONS No Known Medications RESULTS No Results PROCEDURES No Known procedures IMMUNIZATIONS No Known Immunizations
--- OUTSIDE RECORDS SUMMARY | 2018-08-06 21:18 | XMS REPORT ---
Author Author BEVERLY BALLESTEROS [facility] Address [address] [place] [address] Care Team Providers Care Procurement Coordinator Name Role Phone BEVERLY BALLESTEROS Unavailable PROBLEMS Type Condition ICD9-CM Code DOI50-GO Code Onset Dates Condition Status SNOMED Code Problem Dementia without behavioral disturbance, unspecified dementia type F03.90 Active 30664043 Problem Depression F32.9 Active 43109653 Problem Bipolar disorder, unspecified F31.9 Active 19128523 Problem Hypokalemia E87.6 Active 66076308 Problem Hypothyroidism, unspecified type E03.9 Active 01837932 Problem Type 2 diabetes mellitus without complications E11.9 Active 467244253 Problem Nausea and vomiting, unspecified intactability, vomiting of unspecified type R11.2 Active 18216885 Problem Essential (primary) hypertension I10 Active 08503145 Problem 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 Active 72522256 Problem Diarrhea, unspecified type R19.7 Active 91034849 Problem Subacute dyskinesia due to drug G24.01 Active 082745463 Problem Sciatica, left side M54.32 Active 17746127 Problem Atrial fibrillation with RVR I48.91 Active 863957526900556 Problem Constipation, unspecified constipation type K59.00 Active 88295813 Problem Cough R05 Active 95420727 Problem Nausea R11.0 Active 694636061 Problem Poor appetite R63.0 Active 11450980 Problem Seasonal allergic rhinitis due to pollen J30.1 Active 14236249 Problem Tongue pain K14.6 Active 15109821 Problem Primary insomnia F51.01 Active 8920342 Problem Seasonal allergies J30.2 Active 034952503 Problem Restless leg syndrome G25.81 Active 03095168 Problem Gastroesophageal reflux disease, esophagitis presence not specified K21.9 Active 896674153 Problem Dizziness R42 Active 771844456 Problem Chronic atrial fibrillation I48.2 Active 326172354 Problem Pain R52 Active 52693789 Problem Neuropathy G62.9 Active 686580891 Problem Allergic rhinitis, unspecified J30.9 Active 96014655 ALLERGIES No Information ENCOUNTERS Encounter Location Date Diagnosis [place] [id number] [place] [address] 05683- 7068 Feb, [facility] [address] [id number] Feb, Otalgia of right ear H92.01 [place] [address] [place] [id number] [place] [address] 55065- 5063 Jan, Cough R05 and Pain of left hip joint M25.552 [place] [address] [place] [id number] [place] [address] [id number] Dec, [facility] [address] [id number] Dec, Dementia without behavioral disturbance, unspecified dementia type F03.90 [place] [address] [place] [id number] [place] [address]816- 1914 Nov, [facility] [place] [address] [place] [id number] Oct, Sciatica, left side M54.32 [place] [address] [place] [id number] [place] [address] [id number] Oct, Pain of left hip joint M25.[address] [facility] [id number] Sep, Dementia without behavioral disturbance, unspecified dementia type F03.90 [place] [address] [place] [address] 68977- 7398 14 Jul, 2017 Atrial fibrillation with RVR I48.[address] [facility] [address] [id number] Jul, Tongue pain K14.6 [place] [address] [place] [id number] [place] [address] [id number] Jul, [place] [address] [place] [id number] [place] [address] [id number] Jul, [facility] [address] [place] [id number] Jun, Allergic rhinitis, unspecified J30.9 ; Poor appetite R63.0 and Primary insomnia F51.01 [place] [address] [place] [id number] [place] [address] [id number]- 7553 May, Gastroesophageal reflux disease, esophagitis presence not specified K21.9 [facility] [address] [place] [id number] [place] [address] [id number] May, [facility] [address] [id number] Apr, Cervicalgia M54.2 and Depression F32.9 [place] [address] 05387- 0397 Apr, [place] [address] [place] [id number] [place] [address] 70093- 3683 Apr, [place] [address] 74743- 7719 Apr, [facility] [address] [id number] Feb, Dementia without behavioral disturbance, unspecified dementia type F03.90 and Depression F32.9 [place] [address] [place] [id number] [place] [address] 77551- 0743 24 Dec, 2016 [place] [address] [place] [id number] [place] [address] 44656- 8754 Dec, [facility] [place] [address] [place] [id number] [place] [address] 92271- 9741 14 Dec, 2016 [facility] [place] [address] [place] [id number] Dec, Upper respiratory tract infection, unspecified type J06.9 and Cellulitis of nose, external J34.0 [place] [address] [place] [address] 99157- 1516 Nov, 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 [place] [address] [place] [address] Oct, [place] [address] [place] [id number] [place] [address] 30215- 2620 Oct, Seasonal allergies J30.2 ; Dizziness R42 ; Nausea R11.0 and Cough R05 [facility] [address] [id number] Oct, Bipolar disorder, unspecified F31.9 [place] [address] 58911- 6606 Oct, [facility] [address] [id number] Aug, Seasonal allergic rhinitis due to pollen J30.1 [place] [address] [place] [id number] [place] [address] 11796- 0837 Aug, [facility] [address] [id number] Jul, Depression F32.9 and Shakes R25.[address] [facility] [address] [id number] Jun, Depression F32.9 [place] [address] [place] [id number] [place] [address] 45648- 2161 May, 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 [place] [address] [place] [id number] [place] [address] 82417- 3764 May, [place] [address] [place] [id number] [place] [address] 34231- 9246 March, Easy bruising R23.8 [place] [address] [place] [id number] [place] [address] 30105- 6490 March, 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 [facility] [address] [id number] March, Essential (primary) hypertension I10 ; Chronic [...] R05 and Dementia w behavior dist F03.91 [place] [address] 85468- 3765 14 Feb, 2016 [place] [address] 91658- 1925 Feb, Low back pain M54.5 [place] [address] 61055- 6217 Jan, Cough R05 and Diarrhea R19.7 [place] [address] 91268- 9032 Jan, [place] [address] 12814- 4395 Jan, Depression F32.9 and Dementia without behavioral disturbance , unspecified dementia type F03.90 [place] [address] [place] [id number] [place] [address] 32651- 0931 08 Jan, [facility] [address] [place] [id number] Dec, Dementia without behavioral disturbance, unspecified dementia type F03.90 and Depression F32.9 [place] [address] [place] [id number] [place] [address] 82250- 8844 Dec, [place] [address] 10695- 7520 Dec, [facility] [place] [address] [address] Dec, [facility] [place] [address] [place] [id number] [place] [address] 36079- 4312 Oct, [facility] [place] [address] [place] [id number] Oct, Dementia without behavioral disturbance, unspecified dementia type F03.90 and Depression F32.9 [facility] [place] [address] [place] [id number] [place] [address] 94292- 4340 Jul, Cough 786.2 and Diarrhea 787.91 [facility] [place] [address] [place] [id number] May, Depressive disorder, not elsewhere classified [address] [place] [address] [place] [id number] [place] [address] 91626- 1308 March, Diarrhea 787.91 ; Depression 311 and Dementia 294.20 [facility] [place] [address] [place] [address] 23511- 0257 Feb, [facility] [place] [address] [place] [id number] [place] [address] 49595- 6282 Feb, [facility] [place] [address] [place] [id number] Jan, [facility] [place] [address] [address]- 3364 Jan, [facility] [place] [address] [place] [address] 30998- 9114 Dec, [facility] [place] [address] [address]- 1660 Dec, [facility] [place] [address] [place] [address] 75679- 2536 Dec, [facility] [place] [address] [place] [id number] Dec, [facility] [place] [address] [place] [address] 76429- 7149 Aug, [facility] [address] [id number] [place] [address]- 5007 Aug, [facility] [address] [id number] [place] [address]- 8026 Aug, [facility] [place] [address] [facility] [place] [id number] Aug, [facility] [address] [id number] [place] [address]- 7966 Jul, [facility] [address] [id number] [place] [address]- 6368 Jul, [facility] [place] [address] [facility] [id number] Jun, [facility] [address] [id number] [place] [address]- 1058 Jun, [facility] [address] [id number] [place] [address]- 9905 Jun, [facility] [address] [id number] [place] [address]- 6063 Jun, [facility] [address] [id number] [place] [address]- 7448 Jun, [facility] [address] [id number] [place] [address]- 1465 Jun, [facility] [place] [address] [facility] [id number] Jun, [facility] [address] [id number] [place] [address]- 3364 Jun, [facility] [place] [facility] [address] [id number] [place] [address]- 3892 May, [facility] [address] [id number] [place] [address]- 0092 May, [facility] [address] [id number] [place] [address]- 3792 May, [facility] [place] [facility] [address] [id number] [place] [address]- 1163 May, [facility] [place] [facility] [address] [id number] [place] [address]- 3170 May, [facility] [place] [facility] [address] [id number] [place] [address]- 1117 May, [facility] [address] [facility] [id number] May, [facility] [place] [facility] [address] [id number] [place] [address]- 0916 May, [facility] [place] [facility] [address] [id number] [place] [address]- 2963 Apr, [facility] [place] [facility] [address] [id number] [place] [address]- 0992 Apr, [facility] [place] [facility] [address] [id number] [place] [address]- 8134 Apr, [facility] [place] [facility] [address] [id number] [place] [address]- 3362 Apr, [facility] [place] [facility] [address] [id number] [place] [address]- 2443 Apr, [facility] [place] [facility] [address] [id number] [place] [address]- 9477 Apr, [facility] [place] [facility] [address] [id number] [place] [address]- 5083 Apr, [facility] [place] [facility] [address] [id number] [place] [address]- 9957 Apr, [facility] [place] [facility] [address] [id number] [place] [address]- 1639 Apr, [facility] [place] [facility] [address] [id number] [place] [address]- 9696 Apr, [facility] [place] [facility] [address] [id number] [address]- 2546 Apr, [facility] [place] [address] [facility] [id number], [place] [address]- 9451 Apr, [facility] [place] [address] [place] [id number] March, [facility] [place] [address] [facility] [id number], [place] [address]- 1181 March, [facility] [place] [address] [facility] [id number][place] [address]- 9575 March, [facility] [place] [address] [facility] [id number], [place] [address]- 9099 March, [facility] [place] [address] [facility] [id number][place] [address]- 5770 March, [facility] [place] [address] [place] [id number] [address]- 1223 March, [facility] [place] [address] [place] [id number], [place] [address]- 9436 Oct, [facility] [place] [address] [place] [id number], [place] [address]- 8753 Oct, IMMUNIZATIONS No Known Immunizations SOCIAL HISTORY Never Assessed REASON FOR VISIT DC Metoprolol PLAN OF CARE VITAL SIGNS MEDICATIONS Unknown Medications RESULTS No Results PROCEDURES No Known procedures INSTRUCTIONS MEDICATIONS ADMINISTERED No Known Medications
--- OUTSIDE RECORDS SUMMARY | 2018-08-06 21:23 | XMS REPORT | Continuity of Care Document ---
Author Author [facility] Address Unknown Phone Unavailable Allergies Active Description Code Type Severity Reaction Onset Reported/Identified Relationship to Patient Clinical Status Yes amitriptyline [id number] Drug Allergy Mild PSYCH-HYPERACTI 08/27/2009 Yes Ativan Drug Allergy N/A N/A 04/04/2014 Yes Haldol Drug Allergy N/A N/A 04/04/2014 Yes Valium Drug Allergy N/A N/A 04/04/2014 Yes diazepam [id number] Drug Allergy Unknown N/A 08/02/2015 Yes haloperidol [id number] Drug Allergy Unknown N/A 08/02/2015 Yes lorazepam [id number] Drug Allergy Unknown N/A 08/02/2015 Medications There is no data. Problems Date Dx Coded Attending Type Code Diagnosis Diagnosed By 03/16/2010 Ot 244.9 03/16/2010 Ot 250.00 03/16/2010 Ot 311 03/16/2010 Ot 333.94 03/16/2010 Ot 401.9 03/16/2010 Ot 486 03/16/2010 Ot 511.9 03/16/2010 Ot 530.81 03/16/2010 Ot 564.1 03/16/2010 Ot 715.90 03/16/2010 Ot 787.20 08/24/2010 Ot 211.3 BENIGN NEOPLASM LG BOWEL 08/24/2010 Ot 562.10 DIVERTICULOSIS COLON (W/O MENT OF HEMORR 08/24/2010 Ot V12.72 PERSONAL HISTORY OF COLONIC POLYPS 03/03/2011 Ot 244.9 03/03/2011 Ot 250.00 03/03/2011 Ot 401.9 03/03/2011 Ot 530.81 03/03/2011 Ot 562.10 03/03/2011 Ot 599.0 03/03/2011 Ot 786.59 03/03/2011 Ot V58.69 07/29/2013 MCKINLEY HYDE DO Ot 275.41 HYPOCALCEMIA 07/29/2013 MCKINLEY HYDE DO Ot 276.8 HYPOPOTASSEMIA 07/29/2013 MCKINLEY HYDE DO Ot 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 07/29/2013 MCKINLEY HYDE DO Ot 300.00 ANXIETY STATE NOS 07/29/2013 MCKINLEY HYDE DO Ot 331.0 ALZHEIMER'S DISEASE 07/29/2013 MCKINLEY HYDE DO Ot 333.94 RESTLESS LEGS SYNDROME 07/29/2013 MCKINLEY HYDE DO Ot 401.9 HYPERTENSION NOS 04/10/2014 VERONICA SPRINGER MD 250.00 DIABETES MELLITUS WITHOUT MENTION OF COMPLICATION TYPE II OR UNSPECIFIED TYPE NOT STATED UNCONTROLLED 04/10/2014 VERONICA SPRINGER MD 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 04/10/2014 VERONICA SPRINGER MD 311 DEPRESSIVE DISORDER NOT ELSEWHERE CLASSIFIED 04/10/2014 VERONICA SPRINGER MD 401.1 BENIGN ESSENTIAL HYPERTENSION 04/10/2014 VERONICA SPRINGER MD 427.31 ATRIAL FIBRILLATION 04/10/2014 FAVIAN WILKINSON, BEVERLY S 250.00 DIABETES MELLITUS WITHOUT MENTION OF COMPLICATION TYPE II OR UNSPECIFIED TYPE NOT STATED UNCONTROLLED 04/10/2014 FAVIAN WILKINSON BEVERLY S 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 04/10/2014 YENIFER BALLESTEROS APRNNDA S 311 DEPRESSIVE DISORDER NOT ELSEWHERE CLASSIFIED 04/10/2014 FAVIAN WILKINSON BEVERLY S 401.1 BENIGN ESSENTIAL HYPERTENSION 04/10/2014 FAVIAN WILKINSON BEVERLY S 427.31 ATRIAL FIBRILLATION 04/10/2014 FAVIAN WILKINSON BEVERLY S 250.00 DIABETES MELLITUS WITHOUT MENTION OF COMPLICATION TYPE II OR UNSPECIFIED TYPE NOT STATED UNCONTROLLED 04/10/2014 FAVIAN CUSTOMER COUNTER REPRESENTATIVE, BEVERLY S 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 04/10/2014 FAVIAN CUSTOMER COUNTER REPRESENTATIVE, BEVERLY S 311 DEPRESSIVE DISORDER NOT ELSEWHERE CLASSIFIED 04/10/2014 FAVIAN WILKINSON, BEVERLY S 401.1 BENIGN ESSENTIAL HYPERTENSION 04/10/2014 FAVIAN CUSTOMER COUNTER REPRESENTATIVE, BEVERLY S 427.31 ATRIAL FIBRILLATION 04/10/2014 FAVIAN CUSTOMER COUNTER REPRESENTATIVE, BEVERLY S 250.00 DIABETES MELLITUS WITHOUT MENTION OF COMPLICATION TYPE II OR UNSPECIFIED TYPE NOT STATED UNCONTROLLED 04/10/2014 FAVIAN WILKINSON, BEVERLY S 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1 BENIGN ESSENTIAL HYPERTENSION 04/10/2014 VERONICA SPRINGER MD 427.31 ATRIAL FIBRILLATION 04/10/2014 FAVIAN CUSTOMER COUNTER REPRESENTATIVE, BEVERLY S 250.00 DIABETES MELLITUS WITHOUT MENTION OF COMPLICATION TYPE II OR UNSPECIFIED TYPE NOT STATED UNCONTROLLED 04/10/2014 FAVIAN WILKINSON, BEVERLY S 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 04/10/2014 FAVIAN WILKINSON, BEVERLY S 311 DEPRESSIVE DISORDER NOT ELSEWHERE CLASSIFIED 04/10/2014 FAVIAN CUSTOMER COUNTER REPRESENTATIVE, BEVERLY S 401.1 BENIGN ESSENTIAL HYPERTENSION 04/10/2014 FAVIAN CUSTOMER COUNTER REPRESENTATIVE, BEVERLY S 427.31 ATRIAL FIBRILLATION 04/10/2014 FAVIAN CUSTOMER COUNTER REPRESENTATIVE, BEVERLY S 250.00 DIABETES MELLITUS WITHOUT MENTION OF COMPLICATION TYPE II OR UNSPECIFIED TYPE NOT STATED UNCONTROLLED 04/10/2014 FAVIAN CUSTOMER COUNTER REPRESENTATIVE, BEVERLY S 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 04/10/2014 FAVIAN WILKINSON, BEVERLY S 311 DEPRESSIVE DISORDER NOT ELSEWHERE CLASSIFIED 04/10/2014 FAVIAN CUSTOMER COUNTER REPRESENTATIVE, BEVERLY S 401.1 BENIGN ESSENTIAL HYPERTENSION 04/10/2014 FAVIAN CUSTOMER COUNTER REPRESENTATIVE, BEVERLY S 427.31 ATRIAL FIBRILLATION 04/10/2014 FAVIAN CUSTOMER COUNTER REPRESENTATIVE, BEVERLY S 250.00 DIABETES MELLITUS WITHOUT MENTION OF COMPLICATION TYPE II OR UNSPECIFIED TYPE NOT STATED UNCONTROLLED 04/10/2014 FAVIAN CUSTOMER COUNTER REPRESENTATIVE, BEVERLY S 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 04/10/2014 FAVIAN CUSTOMER COUNTER REPRESENTATIVE, BEVERLY S 311 DEPRESSIVE DISORDER NOT ELSEWHERE CLASSIFIED 04/10/2014 FAVIAN WILKINSON, BEVERLY S 401.1 BENIGN ESSENTIAL HYPERTENSION 04/10/2014 FAVIAN CUSTOMER COUNTER REPRESENTATIVE, BEVERLY S 427.31 ATRIAL FIBRILLATION 05/15/2014 FAVIAN CUSTOMER COUNTER REPRESENTATIVE, BEVERLY S 296.80 BIPOLAR DISORDER UNSPECIFIED 05/15/2014 FAVIAN CUSTOMER COUNTER REPRESENTATIVE, BEVERLY S 296.80 BIPOLAR DISORDER UNSPECIFIED 05/15/2014 VERONICA SPRINGER MD 296.80 BIPOLAR DISORDER UNSPECIFIED 05/15/2014 FAVIAN CUSTOMER COUNTER REPRESENTATIVE, BEVERLY S 296.80 BIPOLAR DISORDER UNSPECIFIED 05/15/2014 FAVIAN CUSTOMER COUNTER REPRESENTATIVE, BEVERLY S 296.80 BIPOLAR DISORDER UNSPECIFIED 05/15/2014 FAVIAN CUSTOMER COUNTER REPRESENTATIVE, BEVERLY S 296.80 BIPOLAR DISORDER UNSPECIFIED 06/19/2014 FAVIAN CUSTOMER COUNTER REPRESENTATIVE, BEVERLY S 786.2 COUGH 06/19/2014 VERONICA SPRINGER MD 786.2 COUGH 06/19/2014 FAVIAN CUSTOMER COUNTER REPRESENTATIVE, BEVERLY S 786.2 COUGH 06/19/2014 FAVIAN CUSTOMER COUNTER REPRESENTATIVE, BEVERLY S 786.2 COUGH 06/19/2014 FAVIAN WILKINSON, BEVERLY S 786.2 COUGH 06/24/2014 VERONICA SPRINGER MD 477.9 ALLERGIC RHINITIS CAUSE UNSPECIFIED 06/24/2014 FAVIAN CUSTOMER COUNTER REPRESENTATIVE, BEVERLY S 477.9 ALLERGIC RHINITIS CAUSE UNSPECIFIED 06/24/2014 FAVIAN CUSTOMER COUNTER REPRESENTATIVE, BEVERLY S 477.9 ALLERGIC RHINITIS CAUSE UNSPECIFIED 06/24/2014 FAVIAN CUSTOMER COUNTER REPRESENTATIVE, BEVERLY S 477.9 ALLERGIC RHINITIS CAUSE UNSPECIFIED 07/03/2014 FAVIAN CUSTOMER COUNTER REPRESENTATIVE, BEVERLY S 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 07/03/2014 FAVIAN CUSTOMER COUNTER REPRESENTATIVE, BEVERLY S 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 07/03/2014 FAVIAN CUSTOMER COUNTER REPRESENTATIVE, BEVERLY S 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 01/15/2015 FAVIAN CUSTOMER COUNTER REPRESENTATIVE, BEVERLY S 562.11 DIVERTICULITIS OF COLON (WITHOUT HEMORRHAGE) 08/02/2015 MCKINLEY HYDE DO Ot 244.9 HYPOTHYROIDISM NOS 08/02/2015 MCKINLEY HYDE DO Ot 250.00 DIAB THOMAS WO COMPL, TYPE II OR UNSPEC TY 08/02/2015 MCKINLEY HYDE DO Ot 294.20 DEMENTIA, UNSPECIFIED, WITHOUT BEHAVIORA 08/02/2015 BARRETT DO, MCKINLEY K Ot 401.9 HYPERTENSION NOS 08/02/2015 BARRETT DO, MCKINLEY K Ot 427.31 ATRIAL FIBRILLATION 08/02/2015 BARRETT , MCKINLEY K Ot 427.89 CARDIAC DYSRHYTHMIAS NEC 08/02/2015 BARRETT MCKINLEY CRUZ K Ot 530.81 ESOPHAGEAL REFLUX 08/02/2015 BARRETT , MCKINLEY K Ot 780.4 DIZZINESS AND GIDDINESS 08/04/2015 VERONICA SPRINGER MD Ot 244.9 HYPOTHYROIDISM NOS 08/04/2015 RACHEAL GONSALEZ, VERONICA Styles Ot 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 08/04/2015 VERONICA SPRINGER MD Ot 296.80 BIPOLAR DISORDER, UNSPECIFIED 08/04/2015 VERONICA SPRINGER MD Ot 300.00 ANXIETY STATE NOS 08/04/2015 VERONICA SPRINGER MD Ot 311 DEPRESSIVE DISORDER NEC 08/04/2015 VERONICA SPRINGER MD Ot 331.0 ALZHEIMER'S DISEASE 08/04/2015 VERONICA SPRINGER MD Ot 332.0 PARALYSIS AGITANS 08/04/2015 VERONICA SPRINGER MD Ot 333.94 RESTLESS LEGS SYNDROME 08/04/2015 VERONICA SPRINGER MD Ot 401.9 HYPERTENSION NOS 08/04/2015 VERONICA SPRINGER MD Ot 427.81 SINOATRIAL NODE DYSFUNCT 08/04/2015 VERONICA SPRINGER MD Ot 427.89 CARDIAC DYSRHYTHMIAS NEC 08/04/2015 VERONICA SPRINGER MD Ot 530.81 ESOPHAGEAL REFLUX 08/04/2015 VERONICA SPRINGER MD Ot 593.9 RENAL URETERAL DIS NOS 08/04/2015 VERONICA SPRINGER MD Ot 780.52 INSOMNIA, UNSPECIFIED 08/04/2015 VERONICA SPRINGER MD Ot 782.3 EDEMA 08/04/2015 VERONICA SPRINGER MD Ot 785.9 CARDIOVAS SYS SYMP NEC 08/04/2015 VERONICA SPRINGER MD Ot E942.9 ADV EFF CARDIOVASC NEC 08/04/2015 VERONICA SPRINGER MD Ot V15.82 HISTORY OF TOBACCO USE 08/04/2015 VERONICA SPRINGER MD Ot V15.88 HISTORY OF FALL 08/04/2015 VERONICA SPRINGER MD Ot 244.9 08/04/2015 RACHEAL GONSALEZ, VERONICA F [...] F Ot 593.9 08/04/2015 RACHEAL GONSALEZ, VERONICA Styles Ot 780.52 08/04/2015 RACHEAL GONSALEZ, VERONICA Styles Ot 782.3 08/04/2015 RACHEAL GONSALEZ, VERONICA Styles Ot 785.9 08/04/2015 RACHEAL GONSALEZ, VERONICA Styles Ot E942.9 08/04/2015 RACHEAL GONSALEZ, VERONICA Styles Ot V15.82 08/04/2015 RACHEAL GONSALEZ, VERONICA Styles Ot V15.88 08/08/2015 Ot 511.9 08/08/2015 Ot 789.06 08/08/2015 Ot V81.5 08/08/2015 Ot 511.9 08/08/2015 Ot 496 08/08/2015 CHANDLER GONSALEZ, CAMDEN Goldsmith Ot V72.84 08/08/2015 WALTER WOOD MD Ot 244.9 HYPOTHYROIDISM NOS 08/08/2015 WALTER WOOD MD Ot 250.00 DIAB THOMAS WO COMPL, TYPE II OR UNSPEC TY 08/08/2015 WALTER WOOD MD Ot 276.50 VOLUME DEPLETION, UNSPECIFIED 08/08/2015 WALTER WOOD MD Ot 294.20 DEMENTIA, UNSPECIFIED, WITHOUT BEHAVIORA 08/08/2015 WALTER WOOD MD Ot 401.9 HYPERTENSION NOS 08/08/2015 WALTER WOOD MD Ot 427.31 ATRIAL FIBRILLATION 08/08/2015 WALTER WOOD MD Ot 780.4 DIZZINESS AND GIDDINESS 08/08/2015 WALTER WOOD MD Ot V58.69 OTH MED,LT,CURRENT USE 11/18/2015 BARRETT CRUZ MCKINLEY K Ot F03.90 UNSPECIFIED DEMENTIA WITHOUT BEHAVIORAL 11/18/2015 FAUSTO HYDE DOA K Ot N39.0 URINARY TRACT INFECTION, SITE NOT SPECIF 11/18/2015 FAUSTO HYDE DOA K Ot R11.2 NAUSEA WITH VOMITING, UNSPECIFIED 11/18/2015 FAUSTO HYDE DOA K Ot R42 DIZZINESS AND GIDDINESS 11/20/2015 SHON FRANKLIN MD Ot F03.90 UNSPECIFIED DEMENTIA WITHOUT BEHAVIORAL 11/20/2015 SHON FRANKLIN MD Ot Z59.3 PROBLEMS RELATED TO LIVING IN RESIDENTIA 11/20/2015 SHON FRANKLIN MD Ot Z66 DO NOT RESUSCITATE 11/20/2015 RIGOBERTO GONSALEZ, SHON Zamora Ot Z79.02 PRISON (CURRENT) USE OF ANTITHROMBOTI 04/14/2016 BARRETT DO, MCKINLEY K Ot 244.9 [...] M54.9 DORSALGIA, UNSPECIFIED 04/21/2016 RICHARD GONSALEZ, MELCHOR A Ot R10.84 GENERALIZED ABDOMINAL PAIN 05/04/2016 RICHARD GONSALEZ, MELCHOR A Ot N28.1 CYST OF KIDNEY, ACQUIRED 05/11/2016 RICHARD GONSALEZ, MELCHOR Hopkins Ot M54.9 DORSALGIA, UNSPECIFIED 05/11/2016 RICHARD GONSALEZ, MELCHOR A Ot R10.84 GENERALIZED ABDOMINAL PAIN 06/01/2016 RICHARD GONSALEZ, MELCHOR A Ot N28.1 CYST OF KIDNEY, ACQUIRED 12/20/2016 VERONICA SPRINGER MD Ot J09.X9 FLU DUE TO IDENT NOVEL INFLUENZA A VIRUS 01/10/2017 VERONICA SPRINGER MD Ot J09.X9 FLU DUE TO IDENT NOVEL [...] F41.9 ANXIETY DISORDER, UNSPECIFIED 02/22/2017 JESSICA PAINTING CUSTOMER COUNTER REPRESENTATIVE Ot I10 ESSENTIAL (PRIMARY) HYPERTENSION 02/22/2017 JESSICA PAINTING CUSTOMER COUNTER REPRESENTATIVE Ot I48.2 CHRONIC ATRIAL FIBRILLATION 02/22/2017 JESSICA PAINTING APRN Ot R07.89 OTHER CHEST PAIN 02/22/2017 JESSICA PAINTING APRN Ot R07.9 CHEST PAIN, UNSPECIFIED 02/22/2017 JESSICA PAINTING CUSTOMER COUNTER REPRESENTATIVE Ot Z79.82 CLOCK AND WATCH HANDS DIPPER (CURRENT) USE OF ASPIRIN 02/22/2017 JESSICA PAINTING CUSTOMER COUNTER REPRESENTATIVE Ot Z79.84 PRISON (CURRENT) USE OF ORAL HYPOGLYC 02/22/2017 JESSICA PAINTING CUSTOMER COUNTER REPRESENTATIVE Ot Z79.899 OTHER PRISON (CURRENT) DRUG THERAPY 02/23/2017 JESSICA PAINTING APRN Ot E11.9 TYPE 2 DIABETES MELLITUS WITHOUT COMPLIC 02/23/2017 JESSICA PAINTING APRN Ot F41.9 ANXIETY DISORDER, UNSPECIFIED 02/23/2017 JESSICA PAINTING CUSTOMER COUNTER REPRESENTATIVE Ot I10 ESSENTIAL (PRIMARY) HYPERTENSION 02/23/2017 JESSICA PAINTING APRN Ot I48.2 CHRONIC ATRIAL FIBRILLATION 02/23/2017 JESSICA PAINTING APRN Ot R07.89 OTHER CHEST PAIN 02/23/2017 JESSICA PAINTING CUSTOMER COUNTER REPRESENTATIVE Ot R07.9 CHEST PAIN, UNSPECIFIED 02/23/2017 JESSICA PAINTING CUSTOMER COUNTER REPRESENTATIVE Ot Z79.82 PRISON (CURRENT) USE OF ASPIRIN 02/23/2017 JESSICA PAINTING CUSTOMER COUNTER REPRESENTATIVE Ot Z79.84 PRISON (CURRENT) USE OF ORAL HYPOGLYC 02/23/2017 JESSICA PAINTING CUSTOMER COUNTER REPRESENTATIVE Ot Z79.899 OTHER CLOCK AND WATCH HANDS DIPPER (CURRENT) DRUG THERAPY 02/28/2017 JESSICA PAINTING CUSTOMER COUNTER REPRESENTATIVE Ot E11.9 TYPE 2 DIABETES MELLITUS WITHOUT COMPLIC 02/28/2017 JESSICA PAINTING CUSTOMER COUNTER REPRESENTATIVE Ot F41.9 ANXIETY DISORDER, UNSPECIFIED 02/28/2017 JESSICA PAINTING CUSTOMER COUNTER REPRESENTATIVE Ot I10 ESSENTIAL (PRIMARY) HYPERTENSION 02/28/2017 JESSICA PAINTING CUSTOMER COUNTER REPRESENTATIVE Ot I48.2 CHRONIC ATRIAL FIBRILLATION 02/28/2017 JESSICA PAINTING CUSTOMER COUNTER REPRESENTATIVE Ot R07.89 OTHER CHEST PAIN 02/28/2017 JESSICA PAINTING CUSTOMER COUNTER REPRESENTATIVE Ot R07.9 CHEST PAIN, UNSPECIFIED 02/28/2017 JESSICA PAINTING CUSTOMER COUNTER REPRESENTATIVE Ot Z79.82 PRISON (CURRENT) USE OF ASPIRIN 02/28/2017 JESSICA PAINTING CUSTOMER COUNTER REPRESENTATIVE Ot Z79.84 PRISON (CURRENT) USE OF ORAL HYPOGLYC 02/28/2017 JESSICA PAINTING CUSTOMER COUNTER REPRESENTATIVE Ot Z79.899 OTHER CLOCK AND WATCH HANDS DIPPER (CURRENT) DRUG THERAPY 06/02/2017 DONOVAN GONSALEZ, YELENA Oviedo Ot E03.9 HYPOTHYROIDISM, UNSPECIFIED 06/02/2017 DONOVAN GONSALEZ, YELENA Oviedo Ot E11.9 TYPE 2 DIABETES MELLITUS WITHOUT COMPLIC 06/02/2017 DONOVAN GONSALEZ, YELENA Oviedo Ot F02.81 DEMENTIA IN OTH DISEASES CLASSD ELSWHR W 06/02/2017 DONOVAN GONSALEZ, YELENA Oviedo Ot F31.9 BIPOLAR DISORDER, UNSPECIFIED 06/02/2017 DONOVAN GONSALEZ, YELENA Oviedo Ot F41.9 ANXIETY DISORDER, UNSPECIFIED 06/02/2017 DONOVAN GONSALEZ, YELENA Oviedo Ot 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 06/02/2017 DONOVAN GONSALEZ, YELENA Oviedo Ot G25.81 RESTLESS LEGS SYNDROME 06/02/2017 DONOVAN GONSALEZ, YELENA Oviedo Ot G30.9 ALZHEIMER'S DISEASE, UNSPECIFIED 06/02/2017 DONOVAN GONSALEZ, YEELNA Oviedo Ot G47.00 INSOMNIA, UNSPECIFIED 06/02/2017 DONOVAN GONSALEZ, YELENA R Ot I10 ESSENTIAL (PRIMARY) HYPERTENSION 06/02/2017 DONOVAN GONSALEZ, YELENA Oviedo Ot I48.91 UNSPECIFIED ATRIAL FIBRILLATION 06/02/2017 YELENA MAN MD Ot K21.9 GASTRO-ESOPHAGEAL REFLUX DISEASE WITHOUT 06/02/2017 YELENA MAN MD Ot R07.9 CHEST PAIN, UNSPECIFIED 06/02/2017 YELENA MAN MD Ot R42 DIZZINESS AND GIDDINESS 06/02/2017 DONOVAN GONSALEZ, YELENA Oviedo Ot R45.1 RESTLESSNESS AND AGITATION 06/02/2017 GAYELENA KELLY MD Ot Z66 DO NOT RESUSCITATE 06/02/2017 YELENA MAN MD Ot Z79.02 CLOCK AND WATCH HANDS DIPPER (CURRENT) USE OF ANTITHROMBOTI 06/02/2017 YELENA MAN MD Ot Z79.82 PRISON (CURRENT) USE OF ASPIRIN 06/02/2017 YELENA MAN MD Ot Z79.84 CLOCK AND WATCH HANDS DIPPER (CURRENT) USE OF ORAL HYPOGLYC 06/02/2017 YELENA MAN MD Ot Z87.891 PERSONAL HISTORY OF NICOTINE DEPENDENCE 06/03/2017 YELENA MAN MD Ot E03.9 HYPOTHYROIDISM, UNSPECIFIED 06/03/2017 YELENA MAN MD Ot E11.9 TYPE 2 DIABETES MELLITUS WITHOUT COMPLIC 06/03/2017 YELENA MAN MD Ot F02.81 DEMENTIA IN OT DISEASES CLASSD ELSWHR W 06/03/2017 YELENA MAN [...] RESUSCITATE 06/03/2017 YELENA MAN MD Ot Z79.02 CLOCK AND WATCH HANDS DIPPER (CURRENT) USE OF ANTITHROMBOTI 06/03/2017 YELENA MAN MD Ot Z79.82 CLOCK AND WATCH HANDS DIPPER (CURRENT) USE OF ASPIRIN 06/03/2017 YELENA MAN MD Ot Z79.84 PRISON (CURRENT) USE OF ORAL HYPOGLYC 06/03/2017 YELENA MAN MD Ot Z87.891 PERSONAL HISTORY OF NICOTINE DEPENDENCE 06/03/2017 DONOVAN GONSALEZ, YELENA Oviedo Ot E03.9 HYPOTHYROIDISM, UNSPECIFIED 06/03/2017 DONOVAN GONSALEZ, YELENA Oviedo Ot E11.9 TYPE 2 DIABETES MELLITUS WITHOUT COMPLIC 06/03/2017 DONOVAN GONSALEZ, YELENA Oviedo Ot F02.81 DEMENTIA IN OT DISEASES CLASSD ELSWHR W 06/03/2017 DONOVAN GONSALEZ, YELENA Oviedo Ot F31.9 BIPOLAR DISORDER, UNSPECIFIED 06/03/2017 DONOVAN GONSALEZ, YELENA Oviedo Ot F41.9 ANXIETY DISORDER, UNSPECIFIED 06/03/2017 DONOVAN GONSALEZ, YELENA Oviedo Ot 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 06/03/2017 YELENA MAN MD Ot G25.81 RESTLESS LEGS SYNDROME 06/03/2017 YELENA MAN MD Ot G30.9 ALZHEIMER'S DISEASE, UNSPECIFIED 06/03/2017 DONOVAN GONSALEZ, YELENA Oviedo Ot G47.00 INSOMNIA, UNSPECIFIED 06/03/2017 YELENA MAN [...] RESUSCITATE 06/03/2017 YELENA MAN MD Ot Z79.02 PRISON (CURRENT) USE OF ANTITHROMBOTI 06/03/2017 YELENA MAN MD Ot Z79.82 PRISON (CURRENT) USE OF ASPIRIN 06/03/2017 YELENA MAN MD Ot Z79.84 PRISON (CURRENT) USE OF ORAL HYPOGLYC 06/03/2017 YELENA [...] MD Ot F41.9 ANXIETY DISORDER, UNSPECIFIED 06/04/2017 DONOVAN GONSALEZ, YELENA Oviedo Ot 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 06/04/2017 YELENA MAN MD Ot G25.81 RESTLESS LEGS SYNDROME 06/04/2017 EYLENA MAN MD Ot G30.9 ALZHEIMER'S DISEASE, UNSPECIFIED [...] RESUSCITATE 06/04/2017 YELENA MAN MD Ot Z79.02 PRISON (CURRENT) USE OF ANTITHROMBOTI 06/04/2017 YELENA MAN MD Ot Z79.82 CLOCK AND WATCH HANDS DIPPER (CURRENT) USE OF ASPIRIN 06/04/2017 YELENA MAN MD Ot Z79.84 CLOCK AND WATCH HANDS DIPPER (CURRENT) USE OF ORAL HYPOGLYC 06/04/2017 YELENA MAN MD Ot Z87.891 PERSONAL HISTORY OF NICOTINE DEPENDENCE 06/05/2017 YELENA MAN MD Ot E03.9 HYPOTHYROIDISM, UNSPECIFIED 06/05/2017 YELENA MAN MD, Ot E11.9 TYPE 2 DIABETES MELLITUS WITHOUT COMPLIC 06/05/2017 YELENA MAN MD Ot F02.81 DEMENTIA IN OTH DISEASES CLASSD ELSWHR W 06/05/2017 YELENA MAN MD Ot F31.9 BIPOLAR DISORDER, UNSPECIFIED 06/05/2017 YELENA MAN MD, Ot F41.9 ANXIETY DISORDER, UNSPECIFIED 06/05/2017 YELENA [...] Z66 DO NOT RESUSCITATE 06/05/2017 YELENA MAN MD Ot Z79.02 CLOCK AND WATCH HANDS DIPPER (CURRENT) USE OF ANTITHROMBOTI 06/05/2017 YELENA MAN MD Ot Z79.82 PRISON (CURRENT) USE OF ASPIRIN 06/05/2017 YELENA MAN MD Ot Z79.84 PRISON (CURRENT) USE OF ORAL HYPOGLYC 06/05/2017 YELENA MAN MD Ot Z87.891 PERSONAL HISTORY OF NICOTINE DEPENDENCE 06/05/2017 YELENA MAN MD, Ot E03.9 HYPOTHYROIDISM, UNSPECIFIED 06/05/2017 YELENA MAN MD, Ot E11.9 TYPE 2 DIABETES MELLITUS WITHOUT COMPLIC 06/05/2017 YELENA MAN MD Ot F02.81 DEMENTIA IN OTH DISEASES CLASSD ELSWHR W 06/05/2017 YELENA MAN MD Ot F31.9 BIPOLAR DISORDER, UNSPECIFIED 06/05/2017 DONOVAN GONSALEZ, YELENA Oviedo Ot F41.9 ANXIETY DISORDER, UNSPECIFIED 06/05/2017 DONOVAN GONSALEZ, YELENA Oviedo Ot 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 06/05/2017 DONOVAN GONSALEZ, YELENA Oviedo Ot G25.81 RESTLESS LEGS SYNDROME 06/05/2017 YELENA MAN MD Ot G30.9 ALZHEIMER'S DISEASE, UNSPECIFIED 06/05/2017 DONOVAN GONSALEZ, YELENA Oviedo Ot G47.00 INSOMNIA, UNSPECIFIED 06/05/2017 DONOVAN GONSALEZ, YELENA Oviedo Ot I10 ESSENTIAL (PRIMARY) HYPERTENSION 06/05/2017 DONOVAN GONSALEZ, YELENA Oviedo Ot I48.91 UNSPECIFIED ATRIAL FIBRILLATION 06/05/2017 YELENA MAN MD Ot K21.9 GASTRO-ESOPHAGEAL REFLUX DISEASE WITHOUT 06/05/2017 DONOVAN GONSALEZ, YELENA Oviedo Ot R07.9 CHEST PAIN, UNSPECIFIED 06/05/2017 YELENA MAN MD Ot R42 DIZZINESS AND GIDDINESS 06/05/2017 DONOVAN GONSALEZ, YELENA Oviedo Ot R45.1 RESTLESSNESS AND AGITATION 06/05/2017 YELENA MAN MD Ot Z66 DO NOT RESUSCITATE 06/05/2017 YELENA MAN MD Ot Z79.02 CLOCK AND WATCH HANDS DIPPER (CURRENT) USE OF ANTITHROMBOTI 06/05/2017 YELENA MAN MD Ot Z79.82 CLOCK AND WATCH HANDS DIPPER (CURRENT) USE OF ASPIRIN 06/05/2017 YELENA MAN MD Ot Z79.84 CLOCK AND WATCH HANDS DIPPER (CURRENT) USE OF ORAL HYPOGLYC 06/05/2017 YELENA MAN MD Ot Z87.891 PERSONAL HISTORY OF NICOTINE DEPENDENCE 06/14/2017 BARRETT DO, MCKINLEY K Ot 244.9 HYPOTHYROIDISM NOS 06/14/2017 BARRETT DO, MCKINLEY K Ot 250.00 DIAB THOMAS WO COMPL, TYPE II OR UNSPEC TY 06/14/2017 BARRETT DO, MCKINLEY K Ot 294.20 DEMENTIA, UNSPECIFIED, WITHOUT BEHAVIORA 06/14/2017 BARRETT DO, MCKINLEY K Ot 401.9 HYPERTENSION NOS 06/14/2017 BARRETT DO MCKINLEY K Ot 427.31 ATRIAL FIBRILLATION 06/14/2017 BARRETT DO MCKINLEY K Ot 427.89 CARDIAC DYSRHYTHMIAS NEC 06/14/2017 BARRETTMCKINLEY Hernandez DO K Ot 530.81 ESOPHAGEAL REFLUX 06/14/2017 BARRETT MCKINLEY K Ot 780.4 DIZZINESS AND GIDDINESS 06/12/2018 CHANDLER GONSALEZ, CAMDEN Goldsmith Ot V72.84 EXAM PRE-OPERATIVE NOS 06/12/2018 RICHARD GONSALEZ, MELCHOR Hopkins Ot M54.9 DORSALGIA, UNSPECIFIED 06/12/2018 RICHARD GONSALEZ, MELCHOR Hopkins Ot R10.84 GENERALIZED ABDOMINAL PAIN 06/12/2018 RICHARD GONSALEZ, MELCHOR Hopkins Ot N28.1 CYST OF KIDNEY, ACQUIRED 06/12/2018 RACHEAL GONSALEZ, VERONICA Styles Ot J09.X9 FLU DUE TO IDENT NOVEL INFLUENZA A VIRUS 06/12/2018 JESSICA PAINTING APRN Ot E03.9 HYPOTHYROIDISM, UNSPECIFIED 06/12/2018 JESSICA PAINTING CUSTOMER COUNTER REPRESENTATIVE Ot E11.9 TYPE 2 DIABETES MELLITUS WITHOUT COMPLIC 06/12/2018 JESSICA PAINTING APRN Ot F03.90 UNSPECIFIED DEMENTIA WITHOUT BEHAVIORAL 06/12/2018 JESSICA PAINTING APRN Ot F31.9 BIPOLAR DISORDER, UNSPECIFIED 06/12/2018 JESSICA PAINTING APRN Ot F41.9 ANXIETY DISORDER, UNSPECIFIED 06/12/2018 JESSICA PAINTING APRN Ot G25.81 RESTLESS LEGS SYNDROME 06/12/2018 JESSICA PAINTING APRN Ot G30.9 ALZHEIMER'S DISEASE, UNSPECIFIED 06/12/2018 JESSICA PAINTING CUSTOMER COUNTER REPRESENTATIVE Ot G47.00 INSOMNIA, UNSPECIFIED 06/12/2018 JESSICA PAINTING APRN Ot I10 ESSENTIAL (PRIMARY) HYPERTENSION 06/12/2018 JESSICA PAINTING CUSTOMER COUNTER REPRESENTATIVE Ot I48.91 UNSPECIFIED ATRIAL FIBRILLATION 06/12/2018 JESSICA PAINTING APRN Ot K21.9 GASTRO-ESOPHAGEAL REFLUX DISEASE WITHOUT 06/12/2018 JESSICA PAINTING APRN Ot M54.5 LOW BACK PAIN 06/12/2018 JESSICA PAINTING APRN Ot R10.9 UNSPECIFIED ABDOMINAL PAIN 06/12/2018 JESSICA PAINTING APRN Ot Z79.01 CLOCK AND WATCH HANDS DIPPER (CURRENT) USE OF 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 06/12/2018 JESSICA PAINTING APRN Ot Z79.02 PRISON (CURRENT) USE OF ANTITHROMBOTI 06/12/2018 JESSICA PAINTING APRN Ot Z87.19 PERSONAL HISTORY OF OTHER DISEASES OF TH 06/12/2018 JESSICA PAINTING APRN Ot Z87.448 PERSONAL HISTORY OF OTHER DISEASES OF UR 06/12/2018 JESSICA PAINTING APRN Ot Z87.891 PERSONAL HISTORY OF NICOTINE DEPENDENCE 06/12/2018 JESSICA PAINTING APRN Ot Z88.8 ALLERGY STATUS TO OTH DRUG/MEDS/BIOL SUB 06/12/2018 JESSICA PAINTING APRN Ot Z90.710 ACQUIRED ABSENCE OF BOTH CERVIX AND UTER 06/12/2018 JESSICA PAINTING APRN Ot Z90.89 ACQUIRED ABSENCE OF OTHER ORGANS 06/14/2018 JESSICA PAINTING APRN Ot E03.9 HYPOTHYROIDISM, UNSPECIFIED 06/14/2018 JESSICA PAINTING APRN Ot E11.9 TYPE 2 DIABETES MELLITUS WITHOUT COMPLIC 06/14/2018 JESSICA PAINTING APRN Ot F03.90 UNSPECIFIED DEMENTIA WITHOUT BEHAVIORAL 06/14/2018 JESSICA PAINTING APRN Ot F31.9 BIPOLAR DISORDER, UNSPECIFIED 06/14/2018 JESSICA PAINTING APRN Ot F41.9 ANXIETY DISORDER, UNSPECIFIED 06/14/2018 JESSICA PAINTING APRN Ot G25.81 RESTLESS LEGS SYNDROME 06/14/2018 JESSICA PAINTING APRN Ot G30.9 ALZHEIMER'S DISEASE, UNSPECIFIED 06/14/2018 JESSICA PAINTING APRN Ot G47.00 INSOMNIA, UNSPECIFIED 06/14/2018 JESSICA PAINTING APRN Ot I10 ESSENTIAL (PRIMARY) HYPERTENSION 06/14/2018 JESSICA PAINTING APRN Ot I48.91 UNSPECIFIED ATRIAL FIBRILLATION 06/14/2018 JESSICA PAINTING APRN Ot K21.9 GASTRO-ESOPHAGEAL REFLUX DISEASE WITHOUT 06/14/2018 JESSICA PAINTING APRN Ot M54.5 LOW BACK PAIN 06/14/2018 JESSICA PAINTING APRN Ot R10.9 UNSPECIFIED ABDOMINAL PAIN 06/14/2018 JESSICA PAINTING APRN Ot Z79.01 PRISON (CURRENT) USE OF 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 06/14/2018 JESSICA PAINTING APRN Ot Z79.02 CLOCK AND WATCH HANDS DIPPER (CURRENT) USE OF ANTITHROMBOTI 06/14/2018 JESSICA PAINTING APRN Ot Z87.19 PERSONAL HISTORY OF OTHER DISEASES OF TH 06/14/2018 JESSICA PAINTING APRN Ot Z87.448 PERSONAL HISTORY OF OTHER DISEASES OF UR 06/14/2018 JESSICA PAINTING APRN Ot Z87.891 PERSONAL HISTORY OF NICOTINE DEPENDENCE 06/14/2018 JESSICA PAINTING APRN Ot Z88.8 ALLERGY STATUS TO OTH DRUG/MEDS/BIOL SUB 06/14/2018 JESSICA PAINTING APRN Ot Z90.710 ACQUIRED ABSENCE OF BOTH CERVIX AND UTER 06/14/2018 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 Results Test Result Range Influenza virus A and B antigen detection - 12/18/16 22:30 FLU RESULT NEGATIVE FOR INFLUENZA A AND B ANTIGENS BY [facility] Complete blood count (CBC) with automated white blood cell (WBC) differential - 02/22/17 17:35 Blood leukocytes automated count (number/volume) 6.8 10*3/uL 4.3-11.0 Blood erythrocytes automated count (number/volume) 4.72 10*6/uL 4.35-5.85 Venous blood hemoglobin measurement (mass/volume) 13.8 [...] Automated blood platelet mean volume measurement 9.9 [foz_us] 7.4-10.4 Automated blood neutrophils/100 leukocytes 68 % [...] Serum or plasma sodium measurement (moles/volume) 141 mmol/L 135-145 Serum or plasma potassium measurement (moles/volume) 4.0 mmol/L 3.6-5.0 Serum or plasma chloride measurement (moles/volume) 109 mmol/L 98-107 Carbon dioxide 20 mmol/L 21-32 Serum or plasma anion gap determination (moles/volume) 12 mmol/L 5-14 Serum or plasma urea nitrogen measurement (mass/volume) 22 mg/dL 7-18 Serum or plasma creatinine measurement (mass/volume) 1.18 mg/dL 0.60-1.30 Serum or plasma urea nitrogen/creatinine mass [...] or plasma troponin i.cardiac measurement (mass/volume) < ng/ mL <0.30 Myoglobin, serum - 02/22/17 17:35 Myoglobin, serum 36.2 ng/mL 10.0-92.0 Complete urinalysis with reflex to culture - 02/22/17 17:58 Urine color determination YELLOW NRG Urine clarity determination CLEAR NRG Urine pH measurement by test strip 7 5-9 Specific gravity of urine by test strip 1.010 1.016- 1.022 Urine protein assay by test strip, semi-quantitative [...] 16:20 Blood leukocytes automated count (number/volume) 7.4 10*3/uL 4.3-11.0 Blood erythrocytes automated count (number/volume) 4.97 10*6/uL 4.35-5.85 Venous blood hemoglobin measurement (mass/volume) 14.3 [...] Automated blood platelet mean volume measurement 9.8 [foz_us] 7.4-10.4 Automated blood neutrophils/100 leukocytes 75 % [...] Serum or plasma sodium measurement (moles/volume) 141 mmol/L 135-145 Serum or plasma potassium measurement (moles/volume) 4.0 mmol/L 3.6-5.0 Serum or plasma chloride measurement (moles/volume) 107 mmol/L 98-107 Carbon dioxide 22 mmol/L 21-32 Serum or plasma anion gap determination (moles/volume) 12 mmol/L 5-14 Serum or plasma urea nitrogen measurement (mass/volume) 23 mg/dL 7-18 Serum or plasma creatinine measurement (mass/volume) 1.29 mg/dL 0.60-1.30 Serum or plasma urea nitrogen/creatinine mass [...] or plasma troponin i.cardiac measurement (mass/volume) < ng/ mL <0.30 Magnesium - 06/01/17 16:20 Magnesium 2.1 mg/dL 1.8-2.4 Serum or plasma lithium measurement (moles/volume) - 06/01/17 16:20 BNP level 238.0 pg/mL <100.0 Serum or plasma amylase measurement (enzymatic activity/volume) - 06/01/17 16: 20 Serum or plasma amylase measurement (enzymatic activity/volume) 44 U /L 25-125 Lipase - 06/01/17 16:20 Lipase 20 [...] or plasma troponin i.cardiac measurement (mass/volume) < ng/ mL <0.30 Complete urinalysis with reflex to culture - 06/02/17 03:20 Urine color determination YELLOW NRG Urine clarity determination SLIGHTLY CLOUDY NRG Urine pH measurement by test strip 7 5-9 Specific gravity of urine by test strip 1.010 1.016- 1.022 Urine protein assay by test strip, semi-quantitative [...] Serum or plasma sodium measurement (moles/volume) 140 mmol/L 135-145 Serum or plasma potassium measurement (moles/volume) 4.0 mmol/L 3.6-5.0 Serum or plasma chloride measurement (moles/volume) 108 mmol/L 98-107 Carbon dioxide 19 mmol/L 21-32 Serum or plasma anion gap determination (moles/volume) 13 mmol/L 5-14 Serum or plasma urea nitrogen measurement (mass/volume) 20 mg/dL 7-18 Serum or plasma creatinine measurement (mass/volume) 0.92 mg/dL 0.60-1.30 Serum or plasma urea nitrogen/creatinine mass ratio 22 NRG Serum or plasma creatinine measurement with calculation of estimated glomerular filtration rate 58 NRG Serum or plasma glucose measurement (mass/volume) 149 mg/dL 70-105 Serum or plasma calcium measurement (mass/volume) 9.3 mg/dL 8.5-10.1 Serum or plasma phosphate measurement (mass/volume) - 06/02/17 04:15 Serum or plasma phosphate measurement (mass/volume) 2.9 mg/dL 2.3-4.7 Magnesium - 06/02/17 04:15 Magnesium 2.1 mg/dL 1.8-2.4 Complete blood count (CBC) with automated white blood cell (WBC) differential - 06/02/17 08:47 Blood leukocytes automated count (number/volume) 9.5 10*3/uL 4.3-11.0 Blood erythrocytes automated count (number/volume) 5.11 10*6/uL 4.35-5.85 Venous blood hemoglobin measurement (mass/volume) 14.8 [...] Automated blood platelet mean volume measurement 10.0 [foz_us] 7.4-10.4 Automated blood neutrophils/100 leukocytes 81 % [...] 03:52 Blood leukocytes automated count (number/volume) 7.8 10*3/uL 4.3-11.0 Blood erythrocytes automated count (number/volume) 4.77 10*6/uL 4.35-5.85 Venous blood hemoglobin measurement (mass/volume) 13.9 [...] Automated blood platelet mean volume measurement 10.2 [foz_us] 7.4-10.4 Automated blood neutrophils/100 leukocytes 66 % [...] Serum or plasma sodium measurement (moles/volume) 142 mmol/L 135-145 Serum or plasma potassium measurement (moles/volume) 3.7 mmol/L 3.6-5.0 Serum or plasma chloride measurement (moles/volume) 110 mmol/L 98-107 Carbon dioxide 17 mmol/L 21-32 Serum or plasma anion gap determination (moles/volume) 15 mmol/L 5-14 Serum or plasma urea nitrogen measurement (mass/volume) 24 mg/dL 7-18 Serum or plasma creatinine measurement (mass/volume) 0.84 mg/dL 0.60-1.30 Serum or plasma urea nitrogen/creatinine mass ratio 29 NRG Serum or plasma creatinine measurement with calculation of estimated glomerular filtration rate > NRG Serum or plasma glucose measurement (mass/volume) 112 mg/dL 70-105 Serum or plasma calcium measurement (mass/volume) 8.8 mg/dL 8.5-10.1 Serum or plasma phosphate measurement (mass/volume) - 06/03/17 03:52 Serum or plasma phosphate measurement (mass/volume) 3.2 mg/dL 2.3-4.7 Magnesium - 06/03/17 03:52 Magnesium 2.0 [...] 03:38 Blood leukocytes automated count (number/volume) 6.3 10*3/uL 4.3-11.0 Blood erythrocytes automated count (number/volume) 4.35 10*6/uL 4.35-5.85 Venous blood hemoglobin measurement (mass/volume) 12.6 [...] Automated blood platelet mean volume measurement 10.1 [foz_us] 7.4-10.4 Automated blood neutrophils/100 leukocytes 72 % [...] Serum or plasma sodium measurement (moles/volume) 139 mmol/L 135-145 Serum or plasma potassium measurement (moles/volume) 3.6 mmol/L 3.6-5.0 Serum or plasma chloride measurement (moles/volume) 107 mmol/L 98-107 Carbon dioxide 20 mmol/L 21-32 Serum or plasma anion gap determination (moles/volume) 12 mmol/L 5-14 Serum or plasma urea nitrogen measurement (mass/volume) 22 mg/dL 7-18 Serum or plasma creatinine measurement (mass/volume) 0.91 mg/dL 0.60-1.30 Serum or plasma urea nitrogen/creatinine mass ratio 24 NRG Serum or plasma creatinine measurement with calculation of estimated glomerular filtration rate 59 NRG Serum or plasma glucose measurement (mass/volume) 142 mg/dL 70-105 Serum or plasma calcium measurement (mass/volume) 9.1 mg/dL 8.5-10.1 Serum or plasma phosphate measurement (mass/volume) - 06/04/17 03:38 Serum or plasma phosphate measurement (mass/volume) 3.2 mg/dL 2.3-4.7 Magnesium - 06/04/17 03:38 Magnesium 1.9 [...] 03:18 Blood leukocytes automated count (number/volume) 8.0 10*3/uL 4.3-11.0 Blood erythrocytes automated count (number/volume) 4.33 10*6/uL 4.35-5.85 Venous blood hemoglobin measurement (mass/volume) 12.8 [...] Automated blood platelet mean volume measurement 9.8 [foz_us] 7.4-10.4 Automated blood neutrophils/100 leukocytes 75 % [...] Serum or plasma sodium measurement (moles/volume) 138 mmol/L 135-145 Serum or plasma potassium measurement (moles/volume) 3.9 mmol/L 3.6-5.0 Serum or plasma chloride measurement (moles/volume) 106 mmol/L 98-107 Carbon dioxide 17 mmol/L 21-32 Serum or plasma anion gap determination (moles/volume) 15 mmol/L 5-14 Serum or plasma urea nitrogen measurement (mass/volume) 22 mg/dL 7-18 Serum or plasma creatinine measurement (mass/volume) 0.88 mg/dL 0.60-1.30 Serum or plasma urea nitrogen/creatinine mass ratio 25 NRG Serum or plasma creatinine measurement with calculation of estimated glomerular filtration rate > NRG Serum or plasma glucose measurement (mass/volume) 120 mg/dL 70-105 Serum or plasma calcium measurement (mass/volume) 9.0 mg/dL 8.5-10.1 Serum or plasma phosphate measurement (mass/volume) - 06/05/17 03:18 Serum or plasma phosphate measurement (mass/volume) 2.7 mg/dL 2.3-4.7 Magnesium - 06/05/17 03:18 Magnesium 2.1 mg/dL 1.8-2.4 Complete urinalysis with reflex to culture - 06/12/18 12:10 Urine color determination YELLOW NRG Urine clarity determination CLEAR NRG Urine pH measurement by test strip 6 5-9 Specific gravity of urine by test strip 1.015 1.016- 1.022 Urine protein assay by test strip, semi-quantitative [...] NORMAL Urine leukocyte esterase detection by dipstick 2+ NEGATIVE Automated urine sediment erythrocyte count by microscopy (number/high power field) NONE NRG Automated urine sediment leukocyte count by microscopy (number/high power field ) RARE NRG Bacteria detection in urine sediment by light microscopy NEGATIVE NRG Squamous epithelial cells detection in urine sediment by light microscopy 2-5 NRG Crystals detection in urine sediment by light microscopy NONE NRG Casts detection in urine sediment by light microscopy PRESENT NRG Mucus detection in urine sediment by light microscopy NEGATIVE NRG Complete urinalysis with reflex to culture NO NRG Hyaline casts detection in urine sediment by light microscopy 0-2 NRG Other elements identification in urine sediment by light microscopy RARE TRANS EPI NRG Complete blood count (CBC) with automated white blood cell (WBC) differential - 06/12/18 14:15 Blood leukocytes automated count (number/volume) 7.2 10*3/uL 4.3-11.0 Blood erythrocytes automated count (number/volume) 4.50 10*6/uL 4.35-5.85 Venous blood hemoglobin measurement (mass/volume) 13.1 g/dL 11.5-16.0 Blood hematocrit (volume fraction) 38 % 35-52 Automated erythrocyte mean corpuscular volume 84 [foz_us] 80-99 Automated erythrocyte mean corpuscular hemoglobin (mass per erythrocyte) 29 pg 25-34 Automated erythrocyte mean corpuscular hemoglobin concentration measurement ( mass/volume) 35 g/dL 32-36 Automated erythrocyte distribution width ratio 13.3 % 10.0-14.5 Automated blood platelet count (count/volume) 194 10*3/uL 130-400 Automated blood platelet mean volume measurement 10.2 [foz_us] 7.4-10.4 Automated blood neutrophils/100 leukocytes 73 % 42-75 Automated blood lymphocytes/100 leukocytes 19 % 12-44 Blood monocytes/100 leukocytes 7 % 0-12 Automated blood eosinophils/100 leukocytes 1 % 0-10 Automated blood basophils/100 leukocytes 0 % 0-10 Blood neutrophils automated count (number/volume) 5.3 10*3 1.8-7.8 Blood lymphocytes automated count (number/volume) 1.4 10*3 1.0-4.0 Blood monocytes automated count (number/volume) 0.5 10*3 0.0-1.0 Automated eosinophil count 0.1 10*3/uL 0.0-0.3 Automated blood basophil count (count/volume) 0.0 10*3/uL 0.0-0.1 Whole blood basic metabolic panel - 06/12/18 14:15 Serum or plasma sodium measurement (moles/volume) 140 mmol/L 135-145 Serum or plasma potassium measurement (moles/volume) 4.2 mmol/L 3.6-5.0 Serum or plasma chloride measurement (moles/volume) 108 mmol/L 98-107 Carbon dioxide 20 mmol/L 21-32 Serum or plasma anion gap determination (moles/volume) 12 mmol/L 5-14 Serum or plasma urea nitrogen measurement (mass/volume) 17 mg/dL 7-18 Serum or plasma creatinine measurement (mass/volume) 0.97 mg/dL 0.60-1.30 Serum or plasma urea nitrogen/creatinine mass ratio 18 NRG Serum or plasma creatinine measurement with calculation of estimated glomerular filtration rate 55 NRG Serum or plasma glucose measurement (mass/volume) 110 mg/dL 70-105 Serum or plasma calcium measurement (mass/volume) 9.8 mg/dL 8.5-10.1 Encounters ACCT No. Visit Date/Time Discharge Status Pt. Type Provider Facility Loc./Unit Complaint [id number] 01/15/2015 10:26:00 01/15/2015 23:59:59 CLS Outpatient BEVERLY BALLESTEROS APRN [id number] 08/28/2014 07:40:00 08/28/2014 23:59:59 CLS Outpatient BEVERLY BALLESTEROS APRN [id number] 07/03/2014 11:57:00 07/03/2014 23:59:59 CLS Outpatient BEVERLY BALLESTEROS APRN [id number] 06/24/2014 13:19:00 06/24/2014 23:59:59 CLS Outpatient VERONICA SPRINGER MD [id number] 06/19/2014 11:08:00 06/19/2014 23:59:59 CLS Outpatient BEVERLY BALLESTEROS APRN [id number] 05/15/2014 12:02:00 05/15/2014 23:59:59 CLS Outpatient BEVERLY BALLESTEROS APRN [id number] 05/01/2014 07:52:00 05/01/2014 23:59:59 CLS Outpatient BEVERLY BALLESTEROS APRN [id number] 04/10/2014 12:54:00 04/10/2014 23:59:59 CLS Outpatient VERONICA SPRINGER MD [id number] 06/12/2018 11:33:00 06/12/2018 14:53:00 DIS Emergency JESSICA PAINTING APRN [facility] ER CANNOT URINATE,POSS KID STONES [id number] 06/01/2017 17:45:00 06/05/2017 12:47:00 DIS Inpatient YELENA MAN MD [facility] ICU ATRIAL FIB W RVR,CHEST PAIN [id number] 02/22/2017 17:13:00 02/22/2017 18:42:00 DIS 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[facility] ER CP/SOA [id number] 12/18/2016 23:19:00 12/18/2016 23:59:59 CLS Outpatient VERONICA SPRINGER MD [facility] MLF J09 [id number] 05/03/2016 13:12:00 05/03/2016 23:59:59 CLS Outpatient MELCHOR RAMOS MD [facility] RAD RENAL CYST [id number] 04/19/2016 13:09:00 04/19/2016 23:59:59 CLS Outpatient MELCHOR RAMOS MD [facility] RAD BILAT FLANK AND BACK PAIN [id number] 11/20/2015 14:02:00 11/20/2015 17:20:00 DIS Emergency SHON FRANKLIN MD [facility] ER FALL/CONFUSION [id number] 11/18/2015 19:25:00 11/18/2015 21:37:00 DIS Emergency MCKINLEY HYDE DO [facility] ER MULT COMPLAINTS [id number] 08/08/2015 13:31:00 08/08/2015 17:36:00 DIS Emergency WALTER WOOD MD [facility] ER DIZZY/CONFUSED [id number] 08/03/2015 13:31:00 08/04/2015 10:40:00 DIS Inpatient VERONICA SPRINGER MD [facility] CSD AMS,RENAL INSUFFICIENCY [id number] 08/02/2015 01:35:00 08/02/2015 03:30:00 DIS Emergency MCKINLEY HYDE DO [facility] ER HIGH BLOOD PRESSURE [id number] 07/29/2013 11:34:00 07/29/2013 15:29:00 DIS Emergency BARRETT CRUZ, MCKINLEY Zamora [facility] ER HIGH BLOOD PRESSURE AND HIGH BLOOD SUGAR [id number] 03/28/2013 07:25:00 03/28/2013 23:59:59 CLS Outpatient CAMDEN ARTEAGA MD [facility] PREOP DIARRHEA; HISTORY OF POLYPS [id number] 08/08/2015 13:31:00 Document Registration [id number] 08/08/2015 13:31:00 Document Registration [id number] 08/08/2015 13:31:00 Document Registration [id number] 08/08/2015 13:31:00 Document Registration [id number] 11/18/2010 10:06:00 Document Registration [id number] 03/12/2010 13:34:00 Document Registration [id number] 05/25/2018 10:40:00 05/25/2018 23:59:59 [id number]08/[facility] 13:32:00 ACT Document Registration
--- NOTE | 2018-08-06 21:58 | Diagnostic Imaging Report ---
INDICATION: Fall and left shoulder pain. TIME OF EXAM: 9:57 p.m. EXAMINATION: Three views of the left shoulder were obtained. FINDINGS: Normal glenohumeral and acromioclavicular alignment. There is a fracture of the distal clavicle. No separation is seen. Acromiohumeral space is normal. IMPRESSION: Nondisplaced distal clavicle fracture. Dictated by: Dictated on workstation # [id number]
--- NOTE | 2018-08-06 21:58 | Diagnostic Imaging Report ---
INDICATION: Fall. TIME OF EXAM: 9:59 P.M. EXAMINATION: Two views of the chest were obtained. COMPARISON: Correlation is made with prior study of 06/05/2017. FINDINGS: The heart is enlarged but stable. Lungs are hyperinflated consistent with COPD. No infiltrate is identified. No effusion or pneumothorax is identified. IMPRESSION: Cardiomegaly. No acute feature is detected. Dictated by: Dictated on workstation # [id number]
--- NOTE | 2018-08-06 22:07 | Diagnostic Imaging Report ---
PROCEDURE: CT head and CT cervical spine without contrast. TECHNIQUE: Multiple contiguous axial images were obtained through the brain and cervical spine without the use of intravenous contrast. Sagittal and coronal reformations through the cervical spine were then performed. INDICATION: Fall. Comparison is made with prior exam from 11/20/2015. CT head: There is a hyperdensity and possible calcified mass identified in the pre-pontine in premedullary region. This appears to have been present on prior exams. Ventricles are within normal limits. There is no sulcal effacement. No midline shift or hemorrhage is seen. Cisterns are patent. The visualized paranasal sinuses are clear. IMPRESSION: 1. No acute intracranial process detected. 2. Hyperdense and possibly partially calcified mass in the pre-pontine and premedullary region. This has been present since prior study but appears to be larger. Dedicated MRI of the brain with and without contrast on a nonemergent basis would be recommended for further evaluation. CT cervical spine: There is minimal anterolisthesis of C3 on C4. There is multilevel degenerative disc and facet disease. Variable disc space narrowing and marginal spurring is seen. Prevertebral tissues are normal. Odontoid is intact. No fractures are identified. IMPRESSION: Cervical spondylosis. No acute bony abnormality is identified. Dictated by: Dictated on workstation # [id number]
[2018-08-06 23:30] LABS: BACTERIA,URINE NEGATIVE /HPF; BILIRUBIN,URINE NEGATIVE (NEGATIVE); CLARITY,URINE CLEAR; COLOR,URINE YELLOW; GLUCOSE, URINE (UA) NEGATIVE (NEGATIVE); KETONES,URINE NEGATIVE (NEGATIVE); LEUKOCYTE ESTERASE ,URINE 3+ (NEGATIVE); NITRITE,URINE NEGATIVE (NEGATIVE); PH,URINE 7 (5-9); PROTEIN,URINE NEGATIVE (NEGATIVE); SQUAMOUS EPITHELIAL CELL,UR 0-2 /HPF; UROBILINOGEN,URINE NORMAL (NORMAL); WBC,URINE 0-2 /HPF
[2018-08-06] MEDS ORDERED: TRAM50TA2 PO (23:33)
[2018-08-07 00:03] VITALS: BP 141/89
[2018-08-08] MEDS ORDERED: CEPH-507 PO (22:52)
== END 2018-08-07 00:05 | disposition home or self-care (01) ==
LOC: EDUNIT# 20:38 → ER 20:40
DX: S42.035A Nondisplaced fracture of lateral end of left clavicle, initial encounter for closed fracture (principal); R07.9 Chest pain, unspecified; M54.2 Cervicalgia; R40.2142 Coma scale, eyes open, spontaneous, at arrival to emergency department; R40.2252 Coma scale, best verbal response, oriented, at arrival to emergency department; R40.2362 Coma scale, best motor response, obeys commands, at arrival to emergency department; I48.91 Unspecified atrial fibrillation; I10 Essential (primary) hypertension; F03.91 Unspecified dementia, unspecified severity, with behavioral disturbance; E03.9 Hypothyroidism, unspecified; E11.9 Type 2 diabetes mellitus without complications; F41.9 Anxiety disorder, unspecified; F31.9 Bipolar disorder, unspecified; G30.9 Alzheimer's disease, unspecified; G47.00 Insomnia, unspecified; K21.9 Gastro-esophageal reflux disease without esophagitis; G25.81 Restless legs syndrome; Z88.8 Allergy status to other drugs, medicaments and biological substances; Z87.891 Personal history of nicotine dependence; Z90.89 Acquired absence of other organs; Z87.448 Personal history of other diseases of urinary system; Z90.710 Acquired absence of both cervix and uterus; Z87.19 Personal history of other diseases of the digestive system; Z98.890 Other specified postprocedural states; Z88.6 Allergy status to analgesic agent; Z79.02 Long term (current) use of antithrombotics/antiplatelets; Z79.01 Long term (current) use of anticoagulants; W19.XXXA Unspecified fall, initial encounter; W22.03XA Walked into furniture, initial encounter
CPT/HCPCS: 70450; 71046; 72125; 73030; 81000; 96360

== ENCOUNTER 2018-08-08 18:05 | Emergency (ER) | payer MEDICARE, OTHER ==
[~2018-08-08] VITALS: Ht 167.6 cm; Wt 84.2 kg
[~2018-08-08 18:05] MED LIST changes: +TRAM50TA2 PO
--- OUTSIDE RECORDS SUMMARY | 2018-08-08 18:27 | XMS REPORT | Continuity of Care Document ---
Author Author [facility] Address Unknown Phone Unavailable Allergies Active Description Code Type Severity Reaction Onset Reported/Identified Relationship to Patient Clinical Status Yes amitriptyline [id number] Drug Allergy Mild PSYCH-HYPERACTI 08/27/2009 Yes Ativan Drug Allergy N/A N/A 04/04/2014 Yes Haldol Drug Allergy N/A N/A 04/04/2014 Yes Valium Drug Allergy N/A N/A 04/04/2014 Yes diazepam [id number] Drug Allergy Unknown N/A 08/02/2015 Yes haloperidol [id number] Drug Allergy Unknown N/A 08/02/2015 Yes lorazepam [id number] Drug Allergy Unknown N/A 08/02/2015 Medications There [...] UNSPECIFIED TYPE NOT STATED UNCONTROLLED 04/10/2014 FAVIAN MORTGAGE LOAN PROCESSING CLERK, BEVERLY S 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 04/10/2014 FAVIAN MORTGAGE LOAN PROCESSING CLERK, BEVERLY S 311 DEPRESSIVE DISORDER NOT ELSEWHERE CLASSIFIED 04/10/2014 FAVIAN WILKINSON, BEVERLY S 401.1 BENIGN ESSENTIAL HYPERTENSION 04/10/2014 FAVIAN MORTGAGE LOAN PROCESSING CLERK, BEVERLY S 427.31 ATRIAL FIBRILLATION 04/10/2014 FAVIAN MORTGAGE LOAN PROCESSING CLERK, BEVERLY S 250.00 DIABETES MELLITUS WITHOUT MENTION OF COMPLICATION TYPE II OR UNSPECIFIED TYPE NOT STATED UNCONTROLLED 04/10/2014 FAVIAN WILKINSON, BEVERLY S 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 04/10/2014 FAVIAN MORTGAGE LOAN PROCESSING CLERK, BEVERLY S 311 DEPRESSIVE DISORDER NOT ELSEWHERE CLASSIFIED 04/10/2014 FAVIAN SANTIAGON, BEVERLY S 401.1 BENIGN ESSENTIAL HYPERTENSION 04/10/2014 FAVIAN MORTGAGE LOAN PROCESSING CLERK, BEVERLY S 427.31 ATRIAL FIBRILLATION 04/10/2014 VERONICA SPRINGER MD 250.00 DIABETES MELLITUS WITHOUT MENTION OF COMPLICATION TYPE II OR UNSPECIFIED TYPE NOT STATED UNCONTROLLED 04/10/2014 VERONICA SPRINGER MD 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 04/10/2014 VERONICA SPRINGER MD 311 DEPRESSIVE DISORDER NOT ELSEWHERE CLASSIFIED 04/10/2014 VERONICA SPRINGER MD 401.1 BENIGN ESSENTIAL HYPERTENSION 04/10/2014 VERONICA SPRINGER MD 427.31 ATRIAL FIBRILLATION 04/10/2014 FAVIAN MORTGAGE LOAN PROCESSING CLERK, BEVERLY S 250.00 DIABETES MELLITUS WITHOUT MENTION OF COMPLICATION TYPE II OR UNSPECIFIED TYPE NOT STATED UNCONTROLLED 04/10/2014 FAVIAN WILKINSON, BEVERLY S 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 04/10/2014 FAVIAN WILKINSON, BEVERLY S 311 DEPRESSIVE DISORDER NOT ELSEWHERE CLASSIFIED 04/10/2014 FAVIAN MORTGAGE LOAN PROCESSING CLERK, BEVERLY S 401.1 BENIGN ESSENTIAL HYPERTENSION 04/10/2014 FAVIAN MORTGAGE LOAN PROCESSING CLERK, BEVERLY S 427.31 ATRIAL FIBRILLATION 04/10/2014 FAVIAN MORTGAGE LOAN PROCESSING CLERK, BEVERLY S 250.00 DIABETES MELLITUS WITHOUT MENTION OF COMPLICATION TYPE II OR UNSPECIFIED TYPE NOT STATED UNCONTROLLED 04/10/2014 FAVIAN MORTGAGE LOAN PROCESSING CLERK, BEVERLY S 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 04/10/2014 FAVIAN WILKINSON, BEVERLY S 311 DEPRESSIVE DISORDER NOT ELSEWHERE CLASSIFIED 04/10/2014 FAVIAN MORTGAGE LOAN PROCESSING CLERK, BEVERLY S 401.1 BENIGN ESSENTIAL HYPERTENSION 04/10/2014 FAVIAN MORTGAGE LOAN PROCESSING CLERK, BEVERLY S 427.31 ATRIAL FIBRILLATION 04/10/2014 FAVIAN MORTGAGE LOAN PROCESSING CLERK, BEVERLY S 250.00 DIABETES MELLITUS WITHOUT MENTION OF COMPLICATION TYPE II OR UNSPECIFIED TYPE NOT STATED UNCONTROLLED 04/10/2014 FAVIAN MORTGAGE LOAN PROCESSING CLERK, BEVERLY S 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 04/10/2014 FAVIAN MORTGAGE LOAN PROCESSING CLERK, BEVERLY S 311 DEPRESSIVE DISORDER NOT ELSEWHERE CLASSIFIED 04/10/2014 FAVIAN WILKINSON, BEVERLY S 401.1 BENIGN ESSENTIAL HYPERTENSION 04/10/2014 FAVIAN MORTGAGE LOAN PROCESSING CLERK, BEVERLY S 427.31 ATRIAL FIBRILLATION 05/15/2014 FAVIAN MORTGAGE LOAN PROCESSING CLERK, BEVERLY S 296.80 BIPOLAR DISORDER UNSPECIFIED 05/15/2014 FAVIAN MORTGAGE LOAN PROCESSING CLERK, BEVERLY S 296.80 BIPOLAR DISORDER UNSPECIFIED 05/15/2014 VERONICA SPRINGER MD 296.80 BIPOLAR DISORDER UNSPECIFIED 05/15/2014 FAVIAN MORTGAGE LOAN PROCESSING CLERK, BEVERLY S 296.80 BIPOLAR DISORDER UNSPECIFIED 05/15/2014 FAVIAN MORTGAGE LOAN PROCESSING CLERK, BEVERLY S 296.80 BIPOLAR DISORDER UNSPECIFIED 05/15/2014 FAVIAN MORTGAGE LOAN PROCESSING CLERK, BEVERLY S 296.80 BIPOLAR DISORDER UNSPECIFIED 06/19/2014 FAVIAN MORTGAGE LOAN PROCESSING CLERK, BEVERLY S 786.2 COUGH 06/19/2014 VERONICA SPRINGER MD 786.2 COUGH 06/19/2014 FAVIAN MORTGAGE LOAN PROCESSING CLERK, BEVERLY S 786.2 COUGH 06/19/2014 FAVIAN MORTGAGE LOAN PROCESSING CLERK, BEVERLY S 786.2 COUGH 06/19/2014 FAVIAN WILKINSON, BEVERLY S 786.2 COUGH 06/24/2014 VERONICA SPRINGER MD 477.9 ALLERGIC RHINITIS CAUSE UNSPECIFIED 06/24/2014 FAVIAN MORTGAGE LOAN PROCESSING CLERK, BEVERLY S 477.9 ALLERGIC RHINITIS CAUSE UNSPECIFIED 06/24/2014 FAVIAN MORTGAGE LOAN PROCESSING CLERK, BEVERLY S 477.9 ALLERGIC RHINITIS CAUSE UNSPECIFIED 06/24/2014 FAVIAN MORTGAGE LOAN PROCESSING CLERK, BEVERLY S 477.9 ALLERGIC RHINITIS CAUSE UNSPECIFIED 07/03/2014 FAVIAN MORTGAGE LOAN PROCESSING CLERK, BEVERLY S 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 07/03/2014 FAVIAN MORTGAGE LOAN PROCESSING CLERK, BEVERLY S 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 07/03/2014 FAVIAN MORTGAGE LOAN PROCESSING CLERK, BEVERLY S 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 01/15/2015 FAVIAN MORTGAGE LOAN PROCESSING CLERK, BEVERLY S 562.11 DIVERTICULITIS OF COLON (WITHOUT [...] 11/20/2015 RIGOBERTO GONSALEZ, SHON Zamora Ot Z79.02 NURSING HOME (CURRENT) USE OF ANTITHROMBOTI 04/14/2016 BARRETT DO, [...] F41.9 ANXIETY DISORDER, UNSPECIFIED 02/22/2017 JESSICA PAINTING MORTGAGE LOAN PROCESSING CLERK Ot I10 ESSENTIAL (PRIMARY) HYPERTENSION 02/22/2017 JESSICA PAINTING MORTGAGE LOAN PROCESSING CLERK Ot I48.2 CHRONIC ATRIAL FIBRILLATION 02/22/2017 JESSICA PAINTING APRN Ot R07.89 OTHER CHEST PAIN 02/22/2017 JESSICA PAINTING APRN Ot R07.9 CHEST PAIN, UNSPECIFIED 02/22/2017 JESSICA PAINTING MORTGAGE LOAN PROCESSING CLERK Ot Z79.82 PROJECT ENGINEER CHEMICALS (CURRENT) USE OF ASPIRIN 02/22/2017 JESSICA PAINTING MORTGAGE LOAN PROCESSING CLERK Ot Z79.84 NURSING HOME (CURRENT) USE OF ORAL HYPOGLYC 02/22/2017 JESSICA PAINTING MORTGAGE LOAN PROCESSING CLERK Ot Z79.899 OTHER NURSING HOME (CURRENT) DRUG THERAPY 02/23/2017 JESSICA PAINTING APRN Ot E11.9 TYPE 2 DIABETES MELLITUS WITHOUT COMPLIC 02/23/2017 JESSICA PAINTING APRN Ot F41.9 ANXIETY DISORDER, UNSPECIFIED 02/23/2017 JESSICA PAINTING MORTGAGE LOAN PROCESSING CLERK Ot I10 ESSENTIAL (PRIMARY) HYPERTENSION 02/23/2017 JESSICA PAINTING APRN Ot I48.2 CHRONIC ATRIAL FIBRILLATION 02/23/2017 JESSICA PAINTING APRN Ot R07.89 OTHER CHEST PAIN 02/23/2017 JESSICA PAINTING MORTGAGE LOAN PROCESSING CLERK Ot R07.9 CHEST PAIN, UNSPECIFIED 02/23/2017 JESSICA PAINTING MORTGAGE LOAN PROCESSING CLERK Ot Z79.82 NURSING HOME (CURRENT) USE OF ASPIRIN 02/23/2017 JESSICA PAINTING MORTGAGE LOAN PROCESSING CLERK Ot Z79.84 NURSING HOME (CURRENT) USE OF ORAL HYPOGLYC 02/23/2017 JESSICA PAINTING MORTGAGE LOAN PROCESSING CLERK Ot Z79.899 OTHER PROJECT ENGINEER CHEMICALS (CURRENT) DRUG THERAPY 02/28/2017 JESSICA PAINTING MORTGAGE LOAN PROCESSING CLERK Ot E11.9 TYPE 2 DIABETES MELLITUS WITHOUT COMPLIC 02/28/2017 JESSICA PAINTING MORTGAGE LOAN PROCESSING CLERK Ot F41.9 ANXIETY DISORDER, UNSPECIFIED 02/28/2017 JESSICA PAINTING MORTGAGE LOAN PROCESSING CLERK Ot I10 ESSENTIAL (PRIMARY) HYPERTENSION 02/28/2017 JESSICA PAINTING MORTGAGE LOAN PROCESSING CLERK Ot I48.2 CHRONIC ATRIAL FIBRILLATION 02/28/2017 JESSICA PAINTING MORTGAGE LOAN PROCESSING CLERK Ot R07.89 OTHER CHEST PAIN 02/28/2017 JESSICA PAINTING MORTGAGE LOAN PROCESSING CLERK Ot R07.9 CHEST PAIN, UNSPECIFIED 02/28/2017 JESSICA PAINTING MORTGAGE LOAN PROCESSING CLERK Ot Z79.82 NURSING HOME (CURRENT) USE OF ASPIRIN 02/28/2017 JESSICA PAINTING MORTGAGE LOAN PROCESSING CLERK Ot Z79.84 NURSING HOME (CURRENT) USE OF ORAL HYPOGLYC 02/28/2017 JESSICA PAINTING MORTGAGE LOAN PROCESSING CLERK Ot Z79.899 OTHER PROJECT ENGINEER CHEMICALS (CURRENT) DRUG THERAPY 06/02/2017 DONOVAN GONSALEZ, YELENA [...] G30.9 ALZHEIMER'S DISEASE, UNSPECIFIED 06/02/2017 DONOVAN GONSALEZ, YELENA [place] Ot G47.00 INSOMNIA, UNSPECIFIED 06/02/2017 DONOVAN GONSALEZ, YELENA R Ot I10 ESSENTIAL (PRIMARY) HYPERTENSION 06/02/2017 DONOVAN GONSALEZ, YELENA [place] Ot I48.91 UNSPECIFIED ATRIAL FIBRILLATION 06/02/2017 YELENA MAN MD Ot K21.9 GASTRO-ESOPHAGEAL REFLUX DISEASE WITHOUT 06/02/2017 YELENA MAN MD Ot R07.9 CHEST PAIN, UNSPECIFIED 06/02/2017 YELENA MAN MD Ot R42 DIZZINESS AND GIDDINESS 06/02/2017 DONOVAN GONSALEZ, YELENA vOiedo Ot R45.1 RESTLESSNESS AND AGITATION 06/02/2017 GAYELENA KELLY MD Ot Z66 DO NOT RESUSCITATE 06/02/2017 YELENA MAN MD Ot Z79.02 PROJECT ENGINEER CHEMICALS (CURRENT) USE OF ANTITHROMBOTI 06/02/2017 YELENA MAN MD Ot Z79.82 NURSING HOME (CURRENT) USE OF ASPIRIN 06/02/2017 YELENA MAN MD Ot Z79.84 PROJECT ENGINEER CHEMICALS (CURRENT) USE OF ORAL HYPOGLYC 06/02/2017 YELENA [...] RESUSCITATE 06/03/2017 YELENA MAN MD Ot Z79.02 PROJECT ENGINEER CHEMICALS (CURRENT) USE OF ANTITHROMBOTI 06/03/2017 YELENA MAN MD Ot Z79.82 PROJECT ENGINEER CHEMICALS (CURRENT) USE OF ASPIRIN 06/03/2017 YELENA MAN MD Ot Z79.84 NURSING HOME (CURRENT) USE OF ORAL HYPOGLYC 06/03/2017 YELENA [...] RESUSCITATE 06/03/2017 YELENA MAN MD Ot Z79.02 NURSING HOME (CURRENT) USE OF ANTITHROMBOTI 06/03/2017 YELENA MAN MD Ot Z79.82 NURSING HOME (CURRENT) USE OF ASPIRIN 06/03/2017 YELENA MAN MD Ot Z79.84 NURSING HOME (CURRENT) USE OF ORAL HYPOGLYC 06/03/2017 YELENA [...] ANXIETY DISORDER, UNSPECIFIED 06/04/2017 DONOVAN GONSALEZ, YELENA Ovideo Ot 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 06/04/2017 [...] RESUSCITATE 06/04/2017 YELENA MAN MD Ot Z79.02 NURSING HOME (CURRENT) USE OF ANTITHROMBOTI 06/04/2017 YELENA MAN MD Ot Z79.82 PROJECT ENGINEER CHEMICALS (CURRENT) USE OF ASPIRIN 06/04/2017 YELENA MAN MD Ot Z79.84 PROJECT ENGINEER CHEMICALS (CURRENT) USE OF ORAL HYPOGLYC 06/04/2017 YELENA [...] RESUSCITATE 06/05/2017 YELENA MAN MD Ot Z79.02 PROJECT ENGINEER CHEMICALS (CURRENT) USE OF ANTITHROMBOTI 06/05/2017 YELENA MAN MD Ot Z79.82 NURSING HOME (CURRENT) USE OF ASPIRIN 06/05/2017 YELENA MAN MD Ot Z79.84 NURSING HOME (CURRENT) USE OF ORAL HYPOGLYC 06/05/2017 YELENA [...] RESUSCITATE 06/05/2017 YELENA MAN MD Ot Z79.02 PROJECT ENGINEER CHEMICALS (CURRENT) USE OF ANTITHROMBOTI 06/05/2017 YELENA MAN MD Ot Z79.82 PROJECT ENGINEER CHEMICALS (CURRENT) USE OF ASPIRIN 06/05/2017 YELENA MAN MD Ot Z79.84 PROJECT ENGINEER CHEMICALS (CURRENT) USE OF ORAL HYPOGLYC 06/05/2017 YELENA [...] Ot E03.9 HYPOTHYROIDISM, UNSPECIFIED 06/12/2018 JESSICA PAINTING MORTGAGE LOAN PROCESSING CLERK Ot E11.9 TYPE 2 DIABETES MELLITUS WITHOUT COMPLIC 06/12/2018 JESSICA PAINTING APRN Ot F03.90 UNSPECIFIED DEMENTIA WITHOUT BEHAVIORAL 06/12/2018 JESSICA PAINTING APRN Ot F31.9 BIPOLAR DISORDER, UNSPECIFIED 06/12/2018 JESSICA PAINTING APRN Ot F41.9 ANXIETY DISORDER, UNSPECIFIED 06/12/2018 JESSICA PAINTING APRN Ot G25.81 RESTLESS LEGS SYNDROME 06/12/2018 JESSICA PAINTING APRN Ot G30.9 ALZHEIMER'S DISEASE, UNSPECIFIED 06/12/2018 JESSICA PAINTING MORTGAGE LOAN PROCESSING CLERK Ot G47.00 INSOMNIA, UNSPECIFIED 06/12/2018 JESSICA PAINTING APRN Ot I10 ESSENTIAL (PRIMARY) HYPERTENSION 06/12/2018 JESSICA PAINTING MORTGAGE LOAN PROCESSING CLERK Ot I48.91 UNSPECIFIED ATRIAL FIBRILLATION 06/12/2018 JESSICA PAINTING APRN Ot K21.9 GASTRO-ESOPHAGEAL REFLUX DISEASE WITHOUT 06/12/2018 JESSICA PAINTING APRN Ot M54.5 LOW BACK PAIN 06/12/2018 JESSICA PAINTING APRN Ot R10.9 UNSPECIFIED ABDOMINAL PAIN 06/12/2018 JESSICA PAINTING APRN Ot Z79.01 PROJECT ENGINEER CHEMICALS (CURRENT) USE OF 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 06/12/2018 JESSICA PAINTING APRN Ot Z79.02 NURSING HOME (CURRENT) USE OF ANTITHROMBOTI 06/12/2018 JESSICA PAINTING [...] PAIN 06/14/2018 JESSICA PAINTING APRN Ot Z79.01 NURSING HOME (CURRENT) USE OF 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 06/14/2018 JESSICA PAINTING APRN Ot Z79.02 PROJECT ENGINEER CHEMICALS (CURRENT) USE OF ANTITHROMBOTI 06/14/2018 JESSICA PAINTING APRN Ot Z87.19 PERSONAL HISTORY OF OTHER DISEASES OF TH 06/14/2018 JESSICA PAINTING MORTGAGE LOAN PROCESSING CLERK Ot Z87.448 PERSONAL HISTORY OF OTHER DISEASES OF UR 06/14/2018 JESSICA PAINTING MORTGAGE LOAN PROCESSING CLERK Ot Z87.891 PERSONAL HISTORY OF NICOTINE DEPENDENCE 06/14/2018 JESSICA PAINTING MORTGAGE LOAN PROCESSING CLERK Ot Z88.8 ALLERGY STATUS TO OTH DRUG/MEDS/BIOL SUB 06/14/2018 JESSICA PAINTING MORTGAGE LOAN PROCESSING CLERK Ot Z90.710 ACQUIRED ABSENCE OF BOTH CERVIX AND UTER 06/14/2018 JESSICA PAINTING MORTGAGE LOAN PROCESSING CLERK Ot Z90.89 ACQUIRED ABSENCE OF OTHER ORGANS 08/08/2018 SRAVANTHI TUCKER MD Ot E03.9 HYPOTHYROIDISM, UNSPECIFIED 08/08/2018 SRAVANTHI TUCKER MD Ot E11.9 TYPE 2 DIABETES MELLITUS WITHOUT COMPLIC 08/08/2018 SRAVANTHI TUCKER MD Ot F03.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 08/08/2018 SRAVANTHI TUCKER MD Ot F31.9 BIPOLAR DISORDER, UNSPECIFIED 08/08/2018 SRAVANTHI TUCKER MD Ot F41.9 ANXIETY DISORDER, UNSPECIFIED 08/08/2018 SRAVANTHI TUCKER MD Ot G25.81 RESTLESS LEGS SYNDROME 08/08/2018 SRAVANTHI TUCKER MD Ot G30.9 ALZHEIMER'S DISEASE, UNSPECIFIED 08/08/2018 SRAVANTHI TUCKER MD Ot G47.00 INSOMNIA, UNSPECIFIED 08/08/2018 SRAVANTHI TUCKER MD Ot I10 ESSENTIAL (PRIMARY) HYPERTENSION 08/08/2018 SRAVANTHI TUCKER MD Ot I48.91 UNSPECIFIED ATRIAL FIBRILLATION 08/08/2018 SRAVANTHI TUCKER MD Ot K21.9 GASTRO-ESOPHAGEAL REFLUX DISEASE WITHOUT 08/08/2018 SRAVANTHI TUCKER MD Ot M25.512 PAIN IN LEFT SHOULDER 08/08/2018 SRAVANTHI TUCKER MD Ot M54.2 CERVICALGIA 08/08/2018 SRAVANTHI TUCKER MD Ot R07.9 CHEST PAIN, UNSPECIFIED 08/08/2018 SRAVANTHI TUCKER MD Ot R40.2142 COMA SCALE, EYES OPEN, SPONTANEOUS, EMR 08/08/2018 SRAVANTHI TUCKER MD Ot R40.2252 COMA SCALE, BEST VERBAL RESPONSE, ORIENT 08/08/2018 SRAVANTHI TUCKER MD Ot R40.2362 COMA SCALE, BEST MOTOR RESPONSE, OBEYS C 08/08/2018 SRAVANTHI TUCKER MD Ot S42.035A NONDISP FX OF LATERAL END OF LEFT CLAVIC 08/08/2018 SRAVANTHI TUCKER MD Ot W19.XXXA UNSPECIFIED FALL, INITIAL ENCOUNTER 08/08/2018 SRAVANTHI TUCKER MD Ot W22.03XA WALKED INTO FURNITURE, INITIAL ENCOUNTER 08/08/2018 SRAVANTHI TUCKER MD Ot Z79.01 NURSING HOME (CURRENT) USE OF 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 08/08/2018 SRAVANTHI TUCKER MD Ot Z79.02 PROJECT ENGINEER CHEMICALS (CURRENT) USE OF ANTITHROMBOTI 08/08/2018 SRAVANTHI TUCKER MD, Ot Z87.19 PERSONAL HISTORY OF OTHER DISEASES OF TH 08/08/2018 SRAVANTHI TUCKER MD Ot Z87.448 PERSONAL HISTORY OF OTHER DISEASES OF UR 08/08/2018 SRAVANTHI TUCKER MD Ot Z87.891 PERSONAL HISTORY OF NICOTINE DEPENDENCE 08/08/2018 SRAVANTHI TUCKER MD Ot Z88.6 ALLERGY STATUS TO ANALGESIC AGENT STATUS 08/08/2018 SRAVANTHI TUCKER MD Ot Z88.8 ALLERGY STATUS TO OTH DRUG/MEDS/BIOL SUB 08/08/2018 SRAVANTHI TUCKER MD Ot Z90.710 ACQUIRED ABSENCE OF BOTH CERVIX AND UTER 08/08/2018 SRAVANTHI TUCKER MD Ot Z90.89 ACQUIRED ABSENCE OF OTHER ORGANS 08/08/2018 SRAVANTHI TUCKER MD Ot Z98.890 OTHER SPECIFIED POSTPROCEDURAL STATES Procedures There is no data. Results Test Result Range Influenza virus A and B antigen detection - 12/18/16 22:30 FLU RESULT NEGATIVE FOR INFLUENZA A AND B ANTIGENS BY [facility] Complete blood count (CBC) with automated [...] in platelet poor plasma bycoagulation assay - 07/19/17 16:20 Activated partial thromboplastin time (aPTT) in [...] plasma calcium measurement (mass/volume) 9.8 mg/dL 8.5-10.1 Complete urinalysis with reflex to culture - 08/06/18 23:03 Urine color determination YELLOW NRG Urine clarity [...] urine sediment by light microscopy 0-2 NRG Crystals detection in urine sediment by light microscopy NONE NRG Casts detection in urine sediment by light microscopy NONE NRG Mucus detection in urine sediment by light microscopy NEGATIVE NRG Complete urinalysis with reflex to culture NO NRG Encounters ACCT No. Visit Date/Time Discharge Status Pt. Type Provider Facility Loc./Unit Complaint [id number] 01/15/2015 10:26:00 01/15/2015 23:59:59 CLS Outpatient BEVERLY BALLESTEROS APRN S [id number] 08/28/2014 07:40:00 08/28/2014 23:59:59 CLS Outpatient YENIFER BALLESTEROS APRNNDA S [id number] 07/03/2014 11:57:00 07/03/2014 23:59:59 CLS Outpatient FAVIAN WILKINSON BEVERLY S [id number] 06/24/2014 13:19:00 06/24/2014 23:59:59 CLS Outpatient VERONICA SPRINGER MD [id number] 06/19/2014 11:08:00 06/19/2014 23:59:59 CLS Outpatient FAVIAN WILKINSON BEVERLY S [id number] 05/15/2014 12:02:00 05/15/2014 23:59:59 CLS Outpatient YENIFER BALLESTEROS APRNNDA S [id number] 05/01/2014 07:52:00 05/01/2014 23:59:59 CLS Outpatient FAVIAN WILKINSON BEVERLY S [id number] 04/10/2014 12:54:00 04/10/2014 23:59:59 CLS Outpatient VERONICA SPRINGER MD [id number] 08/06/2018 20:40:00 08/07/2018 00:05:00 DIS Outpatient SRAVANTHI TUCKER MD [facility] [id number] 06/12/2018 11:33:00 06/12/2018 14:53:00 DIS Emergency JESSICA PAINTING MORTGAGE LOAN PROCESSING CLERK [facility] ER CANNOT URINATE,POSS KID STONES [id number] 06/01/2017 17:45:00 06/05/2017 12:47:00 DIS Inpatient YELENA MAN MD [facility] ICU ATRIAL FIB W RVR,CHEST PAIN [id number] 02/22/2017 17:13:00 02/22/2017 18:42:00 DIS Emergency JESSICA PAINTING MORTGAGE LOAN PROCESSING CLERK [facility] ER CP/SOA [id number] 12/18/2016 23:19:00 12/18/2016 23:59:59 CLS Outpatient VERONICA SPRINGER MD [facility] MLF J09 [id number] 05/03/2016 13:12:00 05/03/2016 23:59:59 CLS Outpatient MELCHOR RAMOS MD [facility] RAD RENAL CYST [id number] 04/19/2016 13:09:00 04/19/2016 23:59:59 CLS Outpatient MELCHOR RAMOS MD [facility] RAD BILAT FLANK AND BACK PAIN [id number] 11/20/2015 14:02:00 11/20/2015 17:20:00 DIS Emergency RIGOBERTO GONSALEZ, SHON Zamora [facility] ER FALL/CONFUSION [id number] 11/18/2015 19:25:00 11/18/2015 21:37:00 DIS Emergency MCKINLEY HYDE DO [facility] ER MULT COMPLAINTS [id number] 08/08/2015 13:31:00 08/08/2015 17:36:00 DIS Emergency NINA GONSALEZ, WALTER Gilbert [facility] ER DIZZY/CONFUSED [id number] 08/03/2015 13:31:00 08/04/2015 10:40:00 DIS Inpatient VERONICA SPRINGER MD [facility] CSD AMS,RENAL INSUFFICIENCY [id number] 08/02/2015 01:35:00 08/02/2015 03:30:00 DIS Emergency MCKINLEY HYDE DO [facility] ER HIGH BLOOD PRESSURE [id number] 07/29/2013 11:34:00 07/29/2013 15:29:00 DIS Emergency BARRETT CRUZ, MCKINLEY Zamora [facility] ER HIGH BLOOD PRESSURE AND HIGH BLOOD SUGAR [id number] 03/28/2013 07:25:00 03/28/2013 23:59:59 CLS Outpatient CHANDLER GONSALEZ, CAMDEN Goldsmith [facility] PREOP DIARRHEA; HISTORY OF POLYPS [id number] 08/08/2015 13:31:00 Document Registration [id number] 08/08/2015 13:31:00 Document Registration [id number] 08/08/2015 13:31:00 Document Registration [id number] 08/08/2015 13:31:00 Document Registration [id number] 11/18/2010 10:06:00 Document Registration [id number] 03/12/2010 13:34:00 Document Registration [id number] 05/25/2018 10:40:00 05/25/2018 23:59:59 [id number]/08/2015 13:32:00 ACT Document Registration
[2018-08-08 20:46] LABS: BILIRUBIN,URINE NEGATIVE (NEGATIVE); CLARITY,URINE CLEAR; COLOR,URINE YELLOW; GLUCOSE, URINE (UA) NEGATIVE (NEGATIVE); KETONES,URINE NEGATIVE (NEGATIVE); LEUKOCYTE ESTERASE ,URINE 3+ (NEGATIVE); NITRITE,URINE NEGATIVE (NEGATIVE); PH,URINE 6 (5-9); PROTEIN,URINE 1+ (NEGATIVE); UROBILINOGEN,URINE NORMAL (NORMAL)
[2018-08-08 20:55] LABS: BACTERIA,URINE TRACE /HPF
[2018-08-08] MEDS ORDERED: cefTRIAXone FOR IV USE 1,000 MG in NS (IVPB) 50 ML IV ONE (21:30)
--- NOTE | 2018-08-08 21:31 | Diagnostic Imaging Report ---
PROCEDURE: CT head and CT cervical spine without contrast. TECHNIQUE: Multiple contiguous axial images were obtained through the brain and cervical spine without the use of intravenous contrast. Sagittal and coronal reformations through the cervical spine were then performed. INDICATION: Fall with head and neck pain. Correlation is made with prior CT from 08/06/2018. CT head: Hyperdense mass noted pre-pontine and premedullary region is similar to prior exam and may represent a meningioma. Ventricles are stable. There is no sulcal effacement. No midline shift is seen. No acute intra-axial or extra-axial hemorrhage is identified. IMPRESSION: Stable hyperdense mass in the pre-medullary region, perhaps a meningioma. No acute intracranial process is detected. CT cervical spine: Curvature is normal. Minimal anterolisthesis of C3 on C4 seen. Multilevel degenerative disc disease is again noted. There is multilevel facet arthropathy. No fractures are identified. Prevertebral tissues are within normal limits. Odontoid is intact. IMPRESSION: No acute bony abnormality is identified. Dictated by: Dictated on workstation # [id number]
--- NOTE | 2018-08-08 21:37 | Diagnostic Imaging Report ---
PROCEDURE: CT chest without contrast. TECHNIQUE: Multiple contiguous axial images were obtained through the chest without the use of intravenous contrast. INDICATION: Trauma, fall landing on the left side. No prior studies are available for comparison. No mediastinal hematoma is seen. No pericardial or pleural fluid is identified. No parenchymal contusion or pneumothorax is seen. There is linear scarring or atelectasis in the left lower lobe. Evaluation of the bony structures does show probable fracture of the distal left clavicle, only partially included on this exam. No definite rib fracture is seen. IMPRESSION: Findings suggestive of distal left clavicle fracture. No other significant abnormality is seen. Dictated by: Dictated on workstation # [id number]
--- NOTE | 2018-08-08 21:44 | Diagnostic Imaging Report ---
INDICATION: Fall and left shoulder pain. Time of exam: 9:41 PM 3 views of the left shoulder demonstrate fracture of the distal clavicle. No displacement is seen. Acromioclavicular alignment is normal. Glenohumeral alignment is normal. IMPRESSION: Nondisplaced distal left clavicle fracture. Dictated by: Dictated on workstation # [id number]
[2018-08-08 21:48] LABS: HEMOGLOBIN 12.4 G/DL (11.5-16.0); MEAN PLATELET VOLUME 9.8 FL (7.4-10.4); RED BLOOD COUNT 4.39 10^6/uL (4.35-5.85); RED CELL DISTRIBUTION WIDTH 13.5 % (10.0-14.5); WHITE BLOOD COUNT 8.9 10^3/uL (4.3-11.0)
[2018-08-08] MEDS ORDERED: LIDOCAINE 1% INJ 20 ML 20 ML VIAL INJ ONE (22:00)
[2018-08-08] MEDS ORDERED: cefTRIAXone 1 GM/10 ML for IV (ROCEPHIN) IM ONE (22:00)
[2018-08-08 22:06] LABS: ALANINE AMINOTRANSFERASE 14 U/L (0-55); ALBUMIN 4.5 GM/DL (3.2-4.5); ALKALINE PHOSPHATASE 125 U/L (40-136); BILIRUBIN,TOTAL 0.6 MG/DL (0.1-1.0); BUN/CREATININE RATIO 18; CALCIUM 9.6 MG/DL (8.5-10.1); CARBON DIOXIDE 19 MMOL/L (21-32); CHLORIDE 109 MMOL/L (98-107); CREATININE SERUM 1.31 MG/DL (0.60-1.30); GFR ESTIMATED 39; GLUCOSE 137 MG/DL (70-105); MAGNESIUM 2.4 MG/DL (1.8-2.4); POTASSIUM 4.5 MMOL/L (3.6-5.0); SODIUM 141 MMOL/L (135-145); TOTAL PROTEIN 7.6 GM/DL (6.4-8.2)
[2018-08-08 22:29] LABS: FREE T4 (FREE THYROXINE) 1.09 NG/DL (0.70-1.48)
[2018-08-08] MEDS ORDERED: CEPH-507 PO (22:52)
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
[2018-08-08 23:00] VITALS: BP 146/69
== END 2018-08-08 23:02 | disposition home or self-care (01) ==
LOC: EDUNIT# 18:05 → ER 18:07
DX: S42.012A Anterior displaced fracture of sternal end of left clavicle, initial encounter for closed fracture (principal); S20.212A Contusion of left front wall of thorax, initial encounter; S00.03XA Contusion of scalp, initial encounter; N39.0 Urinary tract infection, site not specified; N28.9 Disorder of kidney and ureter, unspecified; I48.91 Unspecified atrial fibrillation; I10 Essential (primary) hypertension; G20 Parkinson's disease; F03.90 Unspecified dementia, unspecified severity, without behavioral disturbance, psychotic disturbance, mood disturbance, and anxiety; K21.9 Gastro-esophageal reflux disease without esophagitis; E03.9 Hypothyroidism, unspecified; E11.9 Type 2 diabetes mellitus without complications; G47.00 Insomnia, unspecified; G30.9 Alzheimer's disease, unspecified; F41.9 Anxiety disorder, unspecified; F31.9 Bipolar disorder, unspecified; R40.2142 Coma scale, eyes open, spontaneous, at arrival to emergency department; R40.2252 Coma scale, best verbal response, oriented, at arrival to emergency department; R40.2362 Coma scale, best motor response, obeys commands, at arrival to emergency department; Z87.19 Personal history of other diseases of the digestive system; Z87.448 Personal history of other diseases of urinary system; Z79.02 Long term (current) use of antithrombotics/antiplatelets; Z88.8 Allergy status to other drugs, medicaments and biological substances; Z88.6 Allergy status to analgesic agent; Z79.01 Long term (current) use of anticoagulants; Z87.891 Personal history of nicotine dependence; Z90.710 Acquired absence of both cervix and uterus; Z90.89 Acquired absence of other organs; W19.XXXA Unspecified fall, initial encounter
CPT/HCPCS: 36415; 70450; 71250; 72125; 73030; 80053; 81000; 83735; 84439; 84443; 84484; 85027; 87088; 93005

== ENCOUNTER 2019-03-27 15:05 | Inpatient (IN) | payer MEDICARE, OTHER ==
[~2019-03-27] VITALS: Ht 170.2 cm; Wt 77.6 kg
[2019-03-27] VITALS (11 sets, daily range): BP systolic 79–152; BP diastolic 59–104
[~2019-03-27 15:05] MED LIST changes: -AMLO10TA6 PO; +AMLO10TA7 PO; +CEPH-507 PO; -GABA600T2 PO; +GBPN600T PO; +LOSA100T57 PO; -LOSA100T8 PO; +LOSA50TA63 PO; -LOSA50TA7 PO; +RIVA10T PO; -RIVA10TA PO; -SENN-140 PO; +SENN-141 PO; -TRAZ-189 PO; +TRAZ-222 PO
[2019-03-27] MEDS ORDERED: ADENOSINE 6 MG/2 ML (ADENOCARD) VIAL IV ONE (15:12)
--- OUTSIDE RECORDS SUMMARY | 2019-03-27 15:14 | XMS REPORT ---
Author Author BEVERLY BALLESTEROS [facility] Address [address] [place] [address] Care Team Providers Care Nurse First Assist Name Role Phone BEVERLY BALLESTEROS Unavailable PROBLEMS Type Condition ICD9-CM Code SXA51-FI Code Onset Dates Condition Status SNOMED Code Problem Dementia without behavioral disturbance, unspecified dementia type F03.90 Active 71516764 Problem Depression F32.9 Active 89209813 Problem Bipolar disorder, unspecified F31.9 Active 54962872 Problem Hypokalemia E87.6 Active 47998996 Problem Type 2 diabetes mellitus without complications E11.9 Active 754132244 Problem Nausea and vomiting, unspecified intactability, vomiting of unspecified type R11.2 Active 15660331 Problem Essential (primary) hypertension I10 Active 52915010 Problem 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 Active 27836677 Problem Nausea R11.0 Active 099115744 Problem Subacute dyskinesia due to drug G24.01 Active 110058992 Problem Seasonal allergic rhinitis due to pollen J30.1 Active 75821029 Problem Diarrhea, unspecified type R19.7 Active 58984362 Problem Acute bilateral low back pain with left-sided sciatica M54.42 Active 805956313 Problem Sciatica, left side M54.32 Active 88838783 Problem Gastroesophageal reflux disease, esophagitis presence not specified K21.9 Active 191248511 Problem Constipation, unspecified constipation type K59.00 Active 35877291 Problem Cough R05 Active 89216808 Problem Primary insomnia F51.01 Active 9882808 Problem Poor appetite R63.0 Active 89371486 Problem Atrial fibrillation with RVR I48.91 Active 375989003397479 Problem Tongue pain K14.6 Active 70270647 Problem Restless leg syndrome G25.81 Active 01789680 Problem Neuropathy G62.9 Active 653038158 Problem Dizziness R42 Active 197984793 Problem Seasonal allergies J30.2 Active 727634751 Problem Pain R52 Active 89568593 Problem Hypothyroidism, unspecified type E03.9 Active 72209236 Problem Allergic rhinitis, unspecified J30.9 Active 90753931 Problem Chronic atrial fibrillation I48.2 Active 027131781 ALLERGIES No Information ENCOUNTERS Encounter Location Date Diagnosis [facility] [id number] [place] [address]6630- 3802 Sep, [facility]48.2 [facility] [address] [id number] Sep, Atrial fibrillation with RVR I48.91 [facility] [id number] [place] [address] 41224- 6749 Sep, Chronic atrial fibrillation I48.2 [place] [facility] [id number] [place] [address] 57751- 4734 Sep, [facility] [id number] [place] [address] 78080- 5594 Aug, Allergic rhinitis, unspecified J30.9 [facility] [id number] [place] [address] 33399- 6570 Aug, [facility] [id number] [place] [address] 90217- 9142 Jul, Hemorrhoids, unspecified hemorrhoid type K64.9 [facility] [id number] [place] [address] 22152- 8148 Jul, [facility] [address] [place] [id number] Jun, Low back pain M54.5 [facility] [address] [place] [address] 34948- 2614 May, [facility] [address] [id number] May, Low back pain M54.5 [facility] [address] [place] [address] 70939- 9471 May, [facility] [address] [id number] Apr, Callus of foot L84 [facility] [id number] [address] Apr, [facility] [address] [id number] Apr, Acute bilateral low back pain with left-sided sciatica M54.42 [place] [facility] [id number] [address] 9096 Feb, [facility] [address] [id number] Feb, Otalgia of right ear H92.01 [place] [id number] [place] [address] 57814- 5896 Jan, Cough R05 and Pain of left hip joint M25.552 [place] [id number] [place] [address] [id number] Dec, [facility] [address] [id number] Dec, Dementia without behavioral disturbance, unspecified dementia type F03.90 [place] [address] [place] [address] 56776- 5236 Nov, [facility] [address] [place] [phone] Oct, Sciatica, left side M54.32 [place] [id number] [place] [id number] Oct, Pain of left hip joint M25.[address] [id number] Sep, Dementia without behavioral disturbance, unspecified dementia type F03.90 [place] [address] [place] [address] 34172- 9496 14 Jul, 2017 Atrial fibrillation with RVR I48.91 [facility] [address] [place] [id number] 12 Jul, 2017 Tongue pain K14.6 [place] [id number] [place] [address] [id number] Jul, [facility] [id number] [id number] Jul, [facility] [address] [id number] Jun, Allergic rhinitis, unspecified J30.9 ; Poor appetite R63.0 and Primary insomnia F51.01 [place] [address] [place] [address] 32430- 4478 May, Gastroesophageal reflux disease, esophagitis presence not specified K21.9 [facility] [id number] [place] [address] [id number] May, [facility] [address] [id number] Apr, Cervicalgia M54.2 and Depression F32.9 [place] [id number] [place] [address] 69218- 1572 Apr, [place] [id number] [place] [address] 76953- 4781 Apr, [place] [address] [place] [address] 27185- 1009 Apr, [facility] [address] [id number] Feb, Dementia without behavioral disturbance, unspecified dementia type F03.90 and Depression F32.9 [place] [address] [place] [address] 56714- 1202 Dec, [place] [address] [place] [address] 58752- 6590 Dec, [place] [address] [place] [address] 65898- 5549 Dec, [facility] [address] [id number] Dec, Upper respiratory tract infection, unspecified type J06.9 and Cellulitis of nose, external J34.0 [place] [address] [address]254 Nov, 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 [place] [address] [place] [address] 26012- 8607 Oct, [place] [address] [place] [address] 03138- 4727 Oct, Seasonal allergies J30.2 ; Dizziness R42 ; Nausea R11.0 and Cough R05 [facility] [address] [id number] Oct, Bipolar disorder, unspecified F31.9 [place] [id number] [place] [address] 71692- 9740 Oct, [facility] [address] [id number] Aug, Seasonal allergic rhinitis due to pollen J30.1 [place] [id number] [place] [address] 32922- 4237 Aug, [facility] [address] [id number] Jul, Depression F32.9 and Shakes R25.[address] [facility] [address] [id number] Jun, Depression F32.9 [place] [address] [address] 1405 May, 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 [place] [address] [address]- 5046 May, [place] [facility] [id number] [place] [address] 70971- 6559 March, Easy bruising R23.8 [place] [address] [place] [address] 02337- 7485 March, 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 [facility] [address] [id number] March, Essential (primary) hypertension I10 ; Chronic [...] R05 and Dementia w behavior dist F03.91 [place] [address] 73802- 1583 Feb, [place] [address] 42612- 1854 Feb, Low back pain M54.5 [place] [address] 54728- 4683 Jan, Cough R05 and Diarrhea R19.7 [place] [address] 26602- 0535 Jan, [place] [address] 03570- 7276 Jan, Depression F32.9 and Dementia without behavioral disturbance , unspecified dementia type F03.90 [place] [address] 92407- 5621 08 Jan, [address] [facility] [address] [id number] Dec, Dementia without behavioral disturbance, unspecified dementia type F03.90 and Depression F32.9 [place] [address] [place] [address]- 7240 Dec, [facility] [address] [place] [address] 36567- 7827 Dec, [facility] [id number] [place] [address] 80048- 3984 Dec, [facility] [id number] [place] [address] 44174- 4076 Oct, [facility] [address] [id number] Oct, Dementia without behavioral disturbance, unspecified dementia type F03.90 and Depression F32.9 [facility] [id number] [place] [address] 54910- 7626 Jul, Cough 786.2 and Diarrhea 787.[address] [facility] [address] [id number] May, Depressive disorder, not elsewhere classified 311 [facility] [id number] [place] [address] 79127- 5442 March, Diarrhea 787.91 ; Depression 311 and Dementia 294.20 [facility] [id number] [place] [address] 31667- 0423 Feb, [facility] [id number] [place] [address] 83052- 9442 Feb, [facility] [address] [id number] Jan, [facility] [address] [place] [address] 09774- 9791 Jan, [facility] [id number] [place] [address] 04486- 4970 Dec, [facility] [address] [place] [address] 75545- 6676 Dec, [facility] [id number] [place] [address] 833554- 7837 Dec, [facility] [address] [facility] [id number] Dec, [facility] [address] [id number] [place] [address]- 3552 Aug, [facility] [address] [id number] [place] [address]- 0446 Aug, [facility] [address] [id number] [place] [address]- 6161 Aug, [facility] [address] [facility] [id number] Aug, [facility] [address] [id number] [place] [address]- 0355 Jul, [facility] [address] [id number] [place] [address]- 4452 Jul, [facility] [address] [facility] [id number] Jun, [facility] [address] [id number] [place] [address]- 4819 Jun, [facility] [address] [id number] [place] [address]- 6842 Jun, [facility] [address] [id number] [place] [address]- 0049 Jun, [facility] [address] [id number] [place] [address]- 0245 Jun, [facility] [address] [id number] [place] [address]- 7037 Jun, [facility] [address] [facility] [id number] Jun, [facility] [address] [id number] [place] [address]- 4160 Jun, [facility] [address] [id number] [place] [address]- 4410 May, [facility] [address] [id number] [place] [address]- 9545 May, [facility] [address] [id number] [place] [address]- 1917 May, [facility] [place] [facility] [address] [id number] [place] [address]- 9918 May, [facility] [address] [id number] [place] [address]- 8588 May, [facility] [place] [facility] [address] [id number] [place] [address]- 9646 May, [facility] [address] [id number] May, [facility] [address] [id number] [place] [address]- 3444 May, [facility] [address] [id number] [place] [address]- 9903 Apr, [facility] [place] [facility] [address] [id number] [place] [address]- 0193 Apr, [facility] [place] [facility] [address] [id number] [place] [address]- 7404 Apr, [facility] [place] [facility] [address] [id number] [place] [address]- 5369 Apr, [facility] [place] [facility] [address] [id number] [place] [address]- 0351 Apr, [facility] [place] [facility] [address] [id number] [place] [address]- 3996 Apr, [facility] [place] [facility] [address] [id number] [place] [address]- 3114 Apr, [facility] [place] [facility] [address] [id number] [place] [address]- 9039 Apr, [facility] [place] [facility] [address] [id number] [place] [address]- 4817 Apr, [facility] [place] [facility] [id number], [place] [address]- 0865 Apr, [facility] [id number] [address]- 0945 Apr, [facility] [id number], [place] [address]- 5112 Apr, [facility] [address] [id number] March, [facility] [address] [facility] [id number] [address]- 0189 March, [facility] [address] [place] [address]- 3034 March, [facility] [address] [place] [address]- 6581 March, [facility] [address] [address]- 6426 March, [facility] [id number] [address]- 3987 March, [facility] [id number] [address]- 6728 Oct, [facility] [id number], [place] [address]- 5751 Oct, IMMUNIZATIONS No Known Immunizations SOCIAL HISTORY Never Assessed REASON FOR VISIT Medication Clarification PLAN OF CARE VITAL SIGNS MEDICATIONS Medication Instructions Dosage Frequency Start Date End Date Duration Status Xarelto 20 MG Orally Once a day 1 tablet with food 24h Sep, 30 day(s) Active RESULTS No Results PROCEDURES No Known procedures INSTRUCTIONS MEDICATIONS ADMINISTERED No Known Medications MEDICAL (GENERAL) HISTORY Type Description Date Medical 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
--- OUTSIDE RECORDS SUMMARY | 2019-03-27 15:14 | XMS REPORT ---
Author Author BEVERLY BALLESTEROS [facility] Address [address] [place] [address] Care Team Providers Care Warp Hand Name Role Phone BEVERLY BALLESTEROS Unavailable PROBLEMS Type Condition ICD9-CM Code LHC70-QZ Code Onset Dates Condition Status SNOMED Code Problem Dementia without behavioral disturbance, unspecified dementia type F03.90 Active 46255262 Problem Depression F32.9 Active 39376443 Problem Bipolar disorder, unspecified F31.9 Active 19826103 Problem Hypokalemia E87.6 Active 60181805 Problem Type 2 diabetes mellitus without complications E11.9 Active 969892847 Problem Nausea and vomiting, unspecified intactability, vomiting of unspecified type R11.2 Active 45265088 Problem Essential (primary) hypertension I10 Active 62895135 Problem 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 Active 61792442 Problem Nausea R11.0 Active 918855503 Problem Subacute dyskinesia due to drug G24.01 Active 236257031 Problem Seasonal allergic rhinitis due to pollen J30.1 Active 87609165 Problem Diarrhea, unspecified type R19.7 Active 57968905 Problem Acute bilateral low back pain with left-sided sciatica M54.42 Active 781314685 Problem Sciatica, left side M54.32 Active 21411275 Problem Gastroesophageal reflux disease, esophagitis presence not specified K21.9 Active 946493427 Problem Constipation, unspecified constipation type K59.00 Active 18989939 Problem Cough R05 Active 84714673 Problem Primary insomnia F51.01 Active 5705914 Problem Poor appetite R63.0 Active 66674292 Problem Atrial fibrillation with RVR I48.91 Active 783136382230752 Problem Tongue pain K14.6 Active 52604121 Problem Restless leg syndrome G25.81 Active 34778329 Problem Neuropathy G62.9 Active 579236885 Problem Dizziness R42 Active 219338631 Problem Seasonal allergies J30.2 Active 938335032 Problem Pain R52 Active 71195598 Problem Hypothyroidism, unspecified type E03.9 Active 04348149 Problem Allergic rhinitis, unspecified J30.9 Active 85340159 Problem Chronic atrial fibrillation I48.2 Active 165385381 ALLERGIES Substance Reaction Event Type Date Status Valium Unknown Drug Allergy Oct, Active Haldol Unknown Drug Allergy Oct, Active Ativan Unknown Drug Allergy Oct, Active ENCOUNTERS Encounter Location Date Diagnosis [facility] [address] [id number] Oct, Chronic atrial fibrillation I48.2 and Dementia without behavioral disturbance, unspecified dementia type F03.90 [facility] [id number] [place] [address] 94695- 0912 Sep, Chronic atrial fibrillation I48.[address] [facility] [address] [id number] Sep, Atrial fibrillation with RVR I48.91 [place] [id number] [place] [address] 00691- 4296 Sep, Chronic atrial fibrillation I48.2 [facility] [id number] [place] [address] 84267- 9777 Sep, [facility] [id number] [place] [address] 25014- 6459 Aug, Allergic rhinitis, unspecified J30.9 [facility] [id number] [place] [address] 23230- 2819 Aug, [facility] [id number] [place] [address] 67151- 0829 Jul, Hemorrhoids, unspecified hemorrhoid type K64.9 [facility] [id number] [place] [address] 26776- 0977 Jul, [facility] [address] [id number] Jun, Low back pain M54.5 [facility] [id number] [place] [address] 73945- 9320 May, [facility] [address] [id number] May, Low back pain M54.5 [place] [address] [address]46 May, [facility] [address] [place] [id number] Apr, Callus of foot L84 [place] [id number] [place] [address] 57057- 9856 Apr, [facility] [place] [address] [place] [id number] Apr, Acute bilateral low back pain with left-sided sciatica M54.42 [place] [id number] [place] [address] 39158 2546 Feb, [facility] [place] [address] [place] [id number] Feb, Otalgia of right ear H92.01 [place] [address] [place] [address] 74300- 4686 Jan, Cough R05 and Pain of left hip joint M25.552 [place] [id number] [place] [id number] Dec, [facility] [place] [address] [place] [id number] Dec, Dementia without behavioral disturbance, unspecified dementia type F03.90 [place] [address] [place] [address] 18889- 2546 Nov, [facility] [address] [place] [id number] Oct, Sciatica, left side M54.32 [place] [id number] [place] [id number] Oct, Pain of left hip joint M25.552 [facility] [place] [address] [place] [id number] Sep, Dementia without behavioral disturbance, unspecified dementia type F03.90 [place] [address] [place] [address] 50077- 7836 14 Jul, 2017 Atrial fibrillation with RVR I48.91 [facility] [place] [address] [place] [id number] 12 Jul, 2017 Tongue pain K14.6 [facility] [id number] [place] [address] [id number] 05 Jul, 2017 [facility] [address] [id number] 05 Jul, 2017 [facility] [place] [address] [place] [id number] Jun, Allergic rhinitis, unspecified J30.9 ; Poor appetite R63.0 and Primary insomnia F51.01 [place] [id number] [place] [address] 14178- 2516 May, Gastroesophageal reflux disease, esophagitis presence not specified K21.9 [place] [id number] [place] [address] [id number] May, [facility] [address] [place] [id number] Apr, Cervicalgia M54.2 and Depression F32.9 [place] [id number] [place] [address] 82494- 5398 Apr, [place] [id number] [place] [address] 12563- 7638 Apr, [place] [address] [place] [address] 21573- 1996 Apr, [facility] [place] [address] [place] [id number] Feb, Dementia without behavioral disturbance, unspecified dementia type F03.90 and Depression F32.9 [place] [address] [place] [address] 24435918- 6491 Dec, [place] [id number] [place] [address] 54854- 7230 Dec, [place] [address] [place] [address] 17779- 3012 Dec, [facility] [address] [place] [id number] Dec, Upper respiratory tract infection, unspecified type J06.9 and Cellulitis of nose, external J34.0 [place] [id number] [place] [address] 55084- 1309 Nov, 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 [place] [id number] [place] [address] 55492- 8856 Oct, [address] [address]- 7427 Oct, Seasonal allergies J30.2 ; Dizziness R42 ; Nausea R11.0 and Cough R05 [facility] [address] [id number] Oct, Bipolar disorder, unspecified F31.9 [place] [id number] [place] [address] 76668- 0659 Oct, [facility] [address] [place] [id number] Aug, Seasonal allergic rhinitis due to pollen J30.1 [id number] [place] [address] 20133- 2452 Aug, [facility] [place] [address] [place] [id number] Jul, Depression F32.9 and Shakes R25.1 [facility] [place] [address] [place] [id number] Jun, Depression F32.9 [place] [id number] [place] [address] 89632- 3247 May, 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 [place] [id number] [place] [address] 27777- 1002 May, [place] [id number] [place] [address] 79459- 2285 March, Easy bruising R23.8 [place] [id number] [place] [address] 45780- 0010 March, 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 [facility] [address] [place] [id number] March, Essential (primary) hypertension I10 ; Chronic [...] Dementia w behavior dist F03.91 [id number] [place] [address] 35182- 1551 Feb, [place] [id number] [place] [address] 63150- 5924 Feb, Low back pain M54.5 [place] [address] 04018- 5605 Jan, Cough R05 and Diarrhea R19.[address] 7[address]- 2052 Jan, [address] 68869- 2861 Jan, Depression F32.9 and Dementia without behavioral disturbance , unspecified dementia type F03.90 [address] [address] 8097 Jan, [facility] [address] [place] [id number] Dec, Dementia without behavioral disturbance, unspecified dementia type F03.90 and Depression F32.9 [facility] [address] [address] 1185 Dec, [facility] [address] [address]- 5602 Dec, [facility] [address] [address]- 8682 Dec, [facility] [address] [place] [address] 03256- 4876 Oct, [facility] [address] [place] [id number] Oct, Dementia without behavioral disturbance, unspecified dementia type F03.90 and Depression F32.9 [facility] [address] [address]- 3967 Jul, Cough 786.2 and Diarrhea 787.[address] [facility] [address] [id number] May, Depressive disorder, not elsewhere classified 311 [facility] [address] [address] 3702 March, Diarrhea 787.91 ; Depression 311 and Dementia 294.20 [facility] [address] [address]- 8876 Feb, [facility] [address] 355[address] Feb, [facility] [place] [address] [place] [id number] Jan, [facility] [id number] [address]- 8269 Jan, [facility] [address] [place] [address] [place] [address]- 2411 Dec, 2014 [facility] [address] [id number] [place] [address]- 2220 Dec, 2014 [facility] [address] [id number] [place] [address]- 3956 Dec, [facility] [address] [place] [id number] Dec, [facility] [address] [id number], [place] [address]- 3842 Aug, [facility] [address] [id number] [place] [address]- 6942 Aug, [facility] [address] [id number] [place] [address]- 9322 Aug, [facility] [address] [place] [id number] Aug, [facility] [address] [id number], [place] [address]- 6092 Jul, [facility] [address] [id number], [place] [address]- 5569 Jul, [facility] [address] [place] [id number] Jun, [facility] [address] [id number], [place] [address]- 9675 Jun, [facility] [address] [id number], [place] [address]- 9388 Jun, [facility] [address] [id number], [place] [address]- 1299 Jun, [facility] [address] [id number] [place] [address]- 9234 Jun, [facility] [address] [id number], [place] [address]- 9118 Jun, [facility] [address] [place] [id number] Jun, [facility] [place] [facility] [address] [id number] [place] [address]- 5313 Jun, [facility] [place] [facility] [address] [id number] [place] [address]- 1135 May, [facility] [place] [facility] [address] [id number] [place] [address]- 5901 May, [facility] [place] [facility] [address] [id number] [place] [address]- 9466 May, [facility] [place] [facility] [address] [id number] [place] [address]- 3737 May, [facility] [place] [facility] [address] [id number] [place] [address]- 7247 May, [facility] [place] [facility] [address] [id number] [place] [address]- 1771 May, [facility] [address] [place] [id number] May, [facility] [place] [facility] [address] [id number] [place] [address]- 8684 May, [facility] [place] [facility] [address] [id number] [place] [address]- 0787 Apr, [facility] [place] [facility] [address] [id number], [place] [address]- 2150 Apr, [facility] [place] [facility] [address] [id number], [place] [address]- 5696 Apr, [facility] [place] [facility] [address] [id number] [place] [address]- 3378 Apr, [facility] [place] [facility] [address] [id number] [place] [address]- 6411 Apr, [facility] [place] [facility] [address] [id number], [place] [address]- 3402 Apr, [facility] [place] [facility] [address] [id number], [place] [address]- 7748 Apr, [facility] [id number] [address] 3331 Apr, [facility] [id number] [address]- 6798 Apr, [facility] [id number] [address]- 7001 Apr, [facility] [id number] [address]- 3011 Apr, [facility] [id number] 0302 Apr, [facility] [address] [place] [id number] March, [facility] [id number] [address]- 9006 March, [facility] [id number] [address]- 9974 March, [facility] [id number] [address] 6334 March, [facility] [id number] [address]- 9596 March, [facility] [id number] [address] 5682 March, [facility] [id number] [address]- 5703 Oct, [facility] [id number], [place] [address]- 7138 Oct, IMMUNIZATIONS No Known Immunizations SOCIAL HISTORY Never Assessed REASON FOR VISIT Arrhythmia PLAN OF CARE Activity Details Follow Up prn Reason: VITAL SIGNS MEDICATIONS Medication Instructions Dosage Frequency Start Date End Date Duration Status Aspirin 325 MG Orally Once a day 1 tablet 24h Sep, 30 day(s) Active Trazodone HCl 50 MG Orally Once a day 1 tablet at bedtime as needed 24h Active Melatonin 3 MG Orally at bedtime 3 tablets at bedtime Active Potassium Chloride ER 20 MEQ Orally 3 times a day 1 tablet 8h Active Famotidine 20 mg Orally twice a day 1 tablet at bedtime 12h Active Amlodipine Besylate 10 MG Orally Once a day 1 tablet 24h Active Gabapentin 100 MG Orally Once a day 1 capsule 24h March, Active Lasix 40 Orally Once a day 1 tablet 24h Active Exelon 6 MG Orally Twice a day 1 Capsule 12h Jun, Active Carbidopa-Levodopa 25-100 mg take 1 tablet by Oral route 2 times per day March, Active Cetirizine HCl 10 mg Orally Once a day prn 1 tablet Active Oxcarbazepine 300 Orally at bedtime 1 tablet Active Toprol XL 25 MG Orally Once a day 1 tablet 24h Oct, 30 day(s) Active Levothyroxine Sodium 125 MCG Orally Once a day 1 tablet 24h Active Gabapentin 100 MG Orally Once a day at HS 2 tablets Active Acetaminophen 325 MG Orally every 4 hours 2 tablets as needed for pain 4h Active Ibuprofen 200 mg Orally every 6 hrs 2 tablets with food or milk as needed 6h Active Senna 8.6 MG Orally Once a day 1 tablet as needed 24h March, Active Zoloft 100 MG Orally Once a day 1 tablet 24h Jun, Active Magnesium Oxide 500 MG Orally 3 times a day 1 tablet 8h March, Active Lactobacillus - Active Multivitamins/Fl Active Diltiazem CD 240 MG Orally Once a day 1 capsule 24h Active Losartan Potassium 100 MG Orally Once a day 1 tablet 24h Active Preparation H 0.25-14-74.9 % Rectal Twice a day Pt to apply herself. 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
--- OUTSIDE RECORDS SUMMARY | 2019-03-27 15:15 | XMS REPORT ---
Author Author BEVERLY BALLESTEROS [facility] Address [address] [place] [address] Care Team Providers Care Middleware Architect Name Role Phone BEVERLY BALLESTEROS Unavailable PROBLEMS Type Condition ICD9-CM Code QWS75-OX Code Onset Dates Condition Status SNOMED Code Problem Dementia without behavioral disturbance, unspecified dementia type F03.90 Active 91544221 Problem Depression F32.9 Active 06538833 Problem Bipolar disorder, unspecified F31.9 Active 08384980 Problem Hypokalemia E87.6 Active 08079159 Problem Type 2 diabetes mellitus without complications E11.9 Active 825149250 Problem Nausea and vomiting, unspecified intactability, vomiting of unspecified type R11.2 Active 35475106 Problem Essential (primary) hypertension I10 Active 46195262 Problem 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 Active 66287899 Problem Nausea R11.0 Active 981153578 Problem Subacute dyskinesia due to drug G24.01 Active 956408963 Problem Seasonal allergic rhinitis due to pollen J30.1 Active 98264626 Problem Diarrhea, unspecified type R19.7 Active 58524509 Problem Acute bilateral low back pain with left-sided sciatica M54.42 Active 298332224 Problem Sciatica, left side M54.32 Active 36582238 Problem Gastroesophageal reflux disease, esophagitis presence not specified K21.9 Active 766040693 Problem Constipation, unspecified constipation type K59.00 Active 03384667 Problem Cough R05 Active 89875644 Problem Primary insomnia F51.01 Active 1208485 Problem Poor appetite R63.0 Active 96705688 Problem Atrial fibrillation with RVR I48.91 Active 136702579016385 Problem Tongue pain K14.6 Active 04907939 Problem Restless leg syndrome G25.81 Active 69772118 Problem Neuropathy G62.9 Active 072465879 Problem Dizziness R42 Active 866757614 Problem Seasonal allergies J30.2 Active 366026710 Problem Pain R52 Active 47664252 Problem Hypothyroidism, unspecified type E03.9 Active 95978171 Problem Allergic rhinitis, unspecified J30.9 Active 82161941 Problem Chronic atrial fibrillation I48.2 Active 662527479 ALLERGIES No Information ENCOUNTERS Encounter Location Date Diagnosis [facility] [address] [address] Sep, [facility] [id number] [place] [address] 75860- 8266 Aug, Allergic rhinitis, unspecified J30.9 [place] [id number] [place] [address] 57680- 0752 Aug, [place] [id number] [place] [address] 15137- 3360 Jul, Hemorrhoids, unspecified hemorrhoid type K64.9 [place] [id number] [place] [address] 83064- 7495 Jul, [facility] [address] [place], [place] [phone] Jun, Low back pain M54.5 [place] [id number] [place] [address] 74322- 1420 May, [facility] [address] [place] [phone] May, Low back pain M54.5 [place] [id number] [place] [address] 05557- 6620 May, [facility] [address] [id number] Apr, Callus of foot L84 [place] [address] [place] [address] 55172- 9640 Apr, [facility] [address] [id number] Apr, Acute bilateral low back pain with left-sided sciatica M54.42 [place] [id number] [place] [address] 67950- 4430 Feb, [facility] [address] [place] [phone] Feb, Otalgia of right ear H92.01 [place] [id number] [place] [address] 80956- 9916 Jan, Cough R05 and Pain of left hip joint M25.552 [place] [id number] [place] [id number] Dec, [facility] [address] [place] [id number] Dec, Dementia without behavioral disturbance, unspecified dementia type F03.90 [place] [id number] [place] [address] 02935- 3026 Nov, [facility] [address] [place] [phone] Oct, Sciatica, left side M54.32 [place] [id number] [place] [address] [id number] Oct, Pain of left hip joint M25.[address] [id number] Sep, Dementia without behavioral disturbance, unspecified dementia type F03.90 [place] [address] [place] [address] 01209- 0330 14 Jul, 2017 Atrial fibrillation with RVR I48.[address] [facility] [address] [id number] Jul, Tongue pain K14.6 [place] [id number] [place] [address] [id number] Jul, [place] [id number] [place] [address] [id number] Jul, [facility] [address] [place] [phone] Jun, Allergic rhinitis, unspecified J30.9 ; Poor appetite R63.0 and Primary insomnia F51.01 [place] [id number] [place] [address] 42601- 1722 May, Gastroesophageal reflux disease, esophagitis presence not specified K21.9 [facility] [id number] [place] [address] [id number] May, [facility] [address] [id number] Apr, Cervicalgia M54.2 and Depression F32.9 [place] [id number] [place] [address] 83965- 5057 Apr, [place] [id number] [place] [address] 79721- 4846 Apr, [place] [id number] [place] [address] 17918- 5264 Apr, [facility] [address] [id number] Feb, Dementia without behavioral disturbance, unspecified dementia type F03.90 and Depression F32.9 [place] [id number] [place] [address] 78492- 6651 Dec, [place] [id number] [place] [address] 90957- 3709 Dec, [place] [id number] [place] [address] 03427- 8536 Dec, [facility] [address] [id number] Dec, Upper respiratory tract infection, unspecified type J06.9 and Cellulitis of nose, external J34.0 [place] [address] [place] [address] 24958- 6069 Nov, 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 [place] [id number] [place] [address] 85008- 6352 Oct, [place] [id number] [place] [address] 47365- 9051 Oct, Seasonal allergies J30.2 ; Dizziness R42 ; Nausea R11.0 and Cough R05 [facility] [address] [id number] Oct, Bipolar disorder, unspecified F31.9 [place] [address] [place] [address] 69546- 7316 Oct, [facility] [address] [id number] Aug, Seasonal allergic rhinitis due to pollen J30.1 [place] [address] 64583- 6418 Aug, [facility] [address] [id number] Jul, Depression F32.9 and Shakes R25.[address] [id number] Jun, Depression F32.9 [place] [id number] [place] [address] 07954- 8023 May, 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 [place] [id number] [place] [address] 80998- 8894 May, [place] [id number] [place] [address] 85855- 8097 March, Easy bruising R23.8 [place] [id number] [place] [address] 96035- 7900 March, 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 [facility] [address] [id number] March, Essential (primary) hypertension I10 ; Chronic [...] R05 and Dementia w behavior dist F03.91 [place] [address] [address]- [address] 14 Feb, 2016 [place] [address] 64212- 1412 Feb, Low back pain M54.5 [place] [address] 82064- 0389 31 Jan, 2016 Cough R05 and Diarrhea R19.[address] [address]34- [address]84 24 Jan, 2016 [place] [address] 54251- 8035 Jan, Depression F32.9 and Dementia without behavioral disturbance , unspecified dementia type F03.90 [place] [id number] [place] [address] 59700- 0398 08 Jan, [facility] [address] [place] [id number] Dec, Dementia without behavioral disturbance, unspecified dementia type F03.90 and Depression F32.9 [place] [id number] [place] [address] 55356- 1151 Dec, [place] [address] 20605- 7550 Dec, [place] [id number] [place] [address] 74014- 4432 Dec, [place] [address] 89111- 1528 Oct, [facility] [address] [place] [phone] Oct, Dementia without behavioral disturbance, unspecified dementia type F03.90 and Depression F32.9 [facility] [id number] [place] [address] 23978- 4316 Jul, Cough 786.2 and Diarrhea 787.91 [facility] [address] [place] [id number] May, Depressive disorder, not elsewhere classified 311 [facility] [id number] [place] [address] 33024- 9806 March, Diarrhea 787.91 ; Depression 311 and Dementia 294.20 [place] [id number] [place] [address] 89454- 9536 Feb, [facility] [id number] [place] [address] 42655- 2456 Feb, [facility] [address] [place] [id number] Jan, [facility] [id number] [place] [address] 11014- 7231 Jan, [facility] [id number] [place] [address] 76898- 0554 Dec, [facility] [id number] [place] [address] 49280- 3386 Dec, [facility] [id number] [place] [address] 12771- 2526 Dec, [facility] [address] [place] [phone] Dec, [facility] [id number] [place] [address] 68301- 6076 Aug, [facility] [id number] [place] [address] 70580- 9620 Aug, [facility] [id number] [place] [address] 85240- 3656 Aug, [facility] [address] [facility] [id number] Aug, [facility] [address] [id number] [place] [address]- 7910 Jul, [facility] [address] [id number] [place] [address]- 7395 Jul, [facility] [address] [facility] [id number] Jun, [facility] [address] [id number] [place] [address]- 1743 Jun, [facility] [address] [id number] [place] [address]- 5287 Jun, [facility] [address] [id number] [place] [address]- 7061 Jun, [facility] [address] [id number] [place] [address]- 6183 Jun, [facility] [address] [id number] [place] [address]- 1529 Jun, [facility] [address] [facility] [id number] Jun, [facility] [address] [id number] [place] [address]- 9315 Jun, [facility] [address] [id number] [place] [address]- 6061 May, [facility] [address] [id number] [place] [address]- 7423 May, [facility] [place] [facility] [address] [id number] [place]234 May, [facility] [address] [id number] [place] [address]- 2806 May, [facility] [address] [id number] [place] [address]- 0637 May, [facility] [address] [id number] [place] [address]- 2670 May, [facility] [address] [facility] [id number] May, [facility] [place] [facility] [address] [id number] [place] [address] May, [facility] [address] [id number] [place] [address]- 7603 Apr, [facility] [address] [id number] [place] [address]- 5265 Apr, [facility] [place] [facility] [address] [id number] [place] [address]- 4148 Apr, [facility] [place] [facility] [address] [id number] [place] [address]- 5028 Apr, [facility] [place] [facility] [address] [id number] [place] [address]- 9832 Apr, [facility] [place] [facility] [address] [id number] [place] [address]- 3140 Apr, [facility] [place] [facility] [address] [id number] [place] [address]- 1028 Apr, [facility] [place] [facility] [address] [id number] [place] [address]- 3511 Apr, [facility] [place] [facility] [address] [id number] [place] [address]- 2742 Apr, [facility] [place] [facility] [address] [id number] [place] [address]- 2048 Apr, [facility] [place] [facility] [address] [id number] [place] [address]- 1565 Apr, [facility] [place] [facility] [address] [id number] [place] [address]- 5170 Apr, [facility] [address] [facility], [place] [id number] March, [facility] [address] [facility] [id number] [address] March, [facility] [id number] [address]- [address]71 March, [facility] [address] [facility] [id number] [address]- [address]67 March, [facility] [id number] [address]- 7262 March, [facility] [address] [facility] [id number] [address]- [address]31 March, [facility] [id number] [address] 1343 Oct, [facility] [id number] [address]- 1017 Oct, IMMUNIZATIONS No Known Immunizations SOCIAL HISTORY Never Assessed REASON FOR VISIT medication reconciliation -MO order summary PLAN OF CARE VITAL SIGNS MEDICATIONS Medication Instructions Dosage Frequency Start Date End Date Duration Status Ibuprofen 200 mg Orally every 6 hrs 2 tablets with food or milk as needed 6h Active Magnesium Oxide 500 MG Orally 3 times a day 1 tablet 8h March, Active Requip 1 MG Orally 2 times a day 1 tablet for restless leg syndrome 12h March, Active Gabapentin 100 MG Orally Once a day 1 capsule 24h March, Active Trazodone HCl 50 MG Orally Once a day 1 tablet at bedtime as needed 24h Active Acetaminophen 325 MG Orally every 4 hours 2 tablets as needed for pain 4h Active Multivitamins/Fl Active Diltiazem CD 240 MG Orally Once a day 1 capsule 24h Active Tramadol HCl 50 mg Orally every 24 hrs 1 tablet as needed Not- Taking Cetirizine HCl 10 mg Orally Once a day prn 1 tablet Active Lasix 40 Orally Once a day 1 tablet 24h Active Melatonin 3 MG Orally at bedtime 3 tablets at bedtime Active Imodium A-D 2 MG Orally 8 time(s) a day 1 tablet as needed for Diarrhea Not-Taking Amlodipine Besylate 10 MG Orally Once a day 1 tablet 24h Active Gabapentin 100 MG Orally Once a day at HS 2 tablets Active Preparation H 0.25-14-74.9 % Rectal Twice a day Pt to apply herself. Dispense small amt for her as directed Jul, Active Famotidine 20 mg Orally twice a day 1 tablet at bedtime 12h Active Levothyroxine Sodium 125 MCG Orally Once a day 1 tablet 24h Active Potassium Chloride ER 20 MEQ Orally 3 times a day 1 tablet 8h Active Exelon 6 MG Orally Twice a day 1 Capsule 12h Jun, Active Zoloft 100 MG Orally Once a day 1 tablet 24h Jun, Active Xarelto 10 MG Orally Once a day 1 tablet 24h Active Senna 8.6 MG Orally Once a day 1 tablet as needed 24h March, Active Carbidopa-Levodopa 25-100 mg take 1 tablet by Oral route 2 times per day March, Active Lactobacillus - Active Losartan Potassium 100 MG Orally Once a day 1 tablet 24h Active Biofreeze 4 % Externally every 4 hrs as needed 1 application to affected area as needed Feb, Active Oxcarbazepine 300 Orally at bedtime 1 tablet Active RESULTS No Results PROCEDURES No Known procedures INSTRUCTIONS MEDICATIONS ADMINISTERED No Known Medications MEDICAL (GENERAL) HISTORY Type Description Date Medical 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
--- OUTSIDE RECORDS SUMMARY | 2019-03-27 15:15 | XMS REPORT ---
Author Author BEVERLY BALLESTEROS [facility] Address [address] [place] [address] Care Team Providers Care Room Manager Name Role Phone BEVERLY BALLESTEROS Unavailable PROBLEMS Type Condition ICD9-CM Code XIH98-US Code Onset Dates Condition Status SNOMED Code Problem Dementia without behavioral disturbance, unspecified dementia type F03.90 Active 65977588 Problem Depression F32.9 Active 59895677 Problem Bipolar disorder, unspecified F31.9 Active 16806464 Problem Hypokalemia E87.6 Active 66215189 Problem Type 2 diabetes mellitus without complications E11.9 Active 400323566 Problem Nausea and vomiting, unspecified intactability, vomiting of unspecified type R11.2 Active 22661324 Problem Essential (primary) hypertension I10 Active 09942445 Problem 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 Active 58109590 Problem Nausea R11.0 Active 308961060 Problem Subacute dyskinesia due to drug G24.01 Active 694714663 Problem Seasonal allergic rhinitis due to pollen J30.1 Active 56329244 Problem Diarrhea, unspecified type R19.7 Active 79574473 Problem Acute bilateral low back pain with left-sided sciatica M54.42 Active 932102503 Problem Sciatica, left side M54.32 Active 07601689 Problem Gastroesophageal reflux disease, esophagitis presence not specified K21.9 Active 771006336 Problem Constipation, unspecified constipation type K59.00 Active 06794755 Problem Cough R05 Active 88865676 Problem Primary insomnia F51.01 Active 8394384 Problem Poor appetite R63.0 Active 64125570 Problem Atrial fibrillation with RVR I48.91 Active 534835534898435 Problem Tongue pain K14.6 Active 24584513 Problem Restless leg syndrome G25.81 Active 05500133 Problem Neuropathy G62.9 Active 160179994 Problem Dizziness R42 Active 064653442 Problem Seasonal allergies J30.2 Active 708805540 Problem Pain R52 Active 28887182 Problem Hypothyroidism, unspecified type E03.9 Active 77296138 Problem Allergic rhinitis, unspecified J30.9 Active 59200549 Problem Chronic atrial fibrillation I48.2 Active 113707217 ALLERGIES Substance Reaction Event Type Date Status Valium Unknown Drug Allergy Sep, Active Haldol Unknown Drug Allergy Sep, Active Ativan Unknown Drug Allergy Sep, Active ENCOUNTERS Encounter Location Date Diagnosis [facility] [address], [place] [id number] Sep, Atrial fibrillation with RVR I48.91 [facility] [id number] [place] [address]149[address] 8379 Sep, Chronic atrial fibrillation I48.2 [place] [id number] [place] [address] 87883- 4419 Sep, [place] [id number] [place] [address] 05549- 7997 Aug, Allergic rhinitis, unspecified J30.9 [place] [id number] [place] [address] 92300- 9246 Aug, [facility] [id number] [place] [address] 21481- 9752 Jul, Hemorrhoids, unspecified hemorrhoid type K64.9 [facility] [id number] [place] [address] 91692- 5172 Jul, [facility] [address] [id number] Jun, Low back pain M54.5 [facility] [address] [address] May, [facility] [address] [id number] May, Low back pain M54.5 [place] [id number] [place] [address] 73396- 0176 May, [facility] [address] [id number] Apr, Callus of foot L84 [facility] [address], [place] [address] Apr, [facility] [place] [address] [id number] Apr, Acute bilateral low back pain with left-sided sciatica M54.42 [place] [id number] [place] [address] 11688- 4376 Feb, [facility] [place] [address] [id number] Feb, Otalgia of right ear H92.01 [place] [id number] [place] [address] 78628- 9746 Jan, Cough R05 and Pain of left hip joint M25.552 [place] [id number] [place] [id number] Dec, [facility] [address] [id number] Dec, Dementia without behavioral disturbance, unspecified dementia type F03.90 [place] [id number] [place] [address] 06626- 4326 Nov, [facility] [address] [id number] Oct, Sciatica, left side M54.32 [place] [id number] [place] [id number] Oct, Pain of left hip joint M25.[address] [facility] [id number] 16 Sep, 2017 Dementia without behavioral disturbance, unspecified dementia type F03.90 [place] [id number] [place] [address] 52871- 3196 14 Jul, 2017 Atrial fibrillation with RVR I48.[address] [facility] [id number] 12 Jul, 2017 Tongue pain K14.6 [place] [id number] [place] [id number] Jul, [facility] [id number] [id number] Jul, [facility] [address] [id number] Jun, Allergic rhinitis, unspecified J30.9 ; Poor appetite R63.0 and Primary insomnia F51.01 [facility] [address], [place] [address] May, Gastroesophageal reflux disease, esophagitis presence not specified K21.9 [facility] [address] [id number] [id number] May, [facility] [address] [id number] Apr, Cervicalgia M54.2 and Depression F32.9 [place] [address] [address] Apr, [facility] [id number] [place] [address] 70418844- 7823 Apr, [facility] [address] [place] [address] 50438- 9995 Apr, [facility] [address] [id number] Feb, Dementia without behavioral disturbance, unspecified dementia type F03.90 and Depression F32.9 [facility] [address] [address] Dec, [facility] [address], [place] [address]156 Dec, [facility] [address] [place] [address] [id number]- 6380 Dec, [facility] [address] [id number] Dec, Upper respiratory tract infection, unspecified type J06.9 and Cellulitis of nose, external J34.0 [facility] [address] [place] [address] 33558- 9840 Nov, 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 [place] [id number] [place] [address] 14440- 0165 Oct, [place] [id number] [place] [address] 90737- 9685 Oct, Seasonal allergies J30.2 ; Dizziness R42 ; Nausea R11.0 and Cough R05 [facility] [address] [id number] Oct, Bipolar disorder, unspecified F31.[address] [address]- [address]793 Oct, [facility] [address] [id number] Aug, Seasonal allergic rhinitis due to pollen J30.[address] 13941- 2179 Aug, [facility] [address] [id number] Jul, Depression F32.9 and Shakes R25.[address] [facility] [address] [id number] Jun, Depression F32.9 [place] [id number] [place] [address] 47554- 9709 May, 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 [place] [id number] [place] [address] 29416- 9033 May, [place] [id number] [place] [address] 60562- 1544 March, Easy bruising R23.8 [place] [id number] [place] [address] 55132- 9589 March, 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 [facility] [address] [id number] 18 May, 2016 Essential (primary) hypertension I10 ; Chronic atrial [...] R05 and Dementia w behavior dist F03.[address] [address]80- 6685 Feb, [place] [address] [address]67- 2460 Feb, Low back pain M54.5 [place] [address] 39377- 9511 Jan, Cough R05 and Diarrhea R19.7 [place] [address] 94443- 6479 Jan, [place] [address] 56500- 5711 Jan, Depression F32.9 and Dementia without behavioral disturbance , unspecified dementia type F03.90 [place] [address] 08111- 5470 08 Jan, 2016 [facility] [address] [id number] Dec, Dementia without behavioral disturbance, unspecified dementia type F03.90 and Depression F32.[address] 72243- 6051 Dec, [facility] [address], [place] [address]- 9376 Dec, [facility] [id number] [place] [address] 52701- 4549 Dec, [facility] [id number] [place] [address] 26050- 5316 Oct, [facility] [address] [id number] Oct, Dementia without behavioral disturbance, unspecified dementia type F03.90 and Depression F32.9 [place] [id number] [place] [address] 07190- 8905 Jul, Cough 786.2 and Diarrhea 787.91 [facility] [address] [id number] May, Depressive disorder, not elsewhere classified 311 [facility] [id number] [place] [address] 88369- 6939 March, Diarrhea 787.91 ; Depression 311 and Dementia 294.20 [facility] [address] [place] [address] 52867- 1085 Feb, [facility] [address] [place] [address] 76306- 4655 Feb, [facility] [address] [id number] Jan, [facility] [address], [place] [address] 7609 Jan, [facility] [id number] [place] [address] 74167- 9239 Dec, [facility] [address] [place] [address] 03776- 9678 Dec, [facility] [id number] [place] [address] 355468- 3936 Dec, [facility] [address] [facility] [id number] Dec, [facility] [address] [id number] [place] [address]- 9676 Aug, [facility] [address] [id number] [place] [address]- 8991 Aug, [facility] [address] [id number] [place] [address]- 1230 Aug, [facility] [address] [facility] [id number] Aug, [facility] [address] [id number] [place] [address]- 8188 Jul, [facility] [address] [id number] [place] [address]- 3947 Jul, [facility] [address] [facility] [id number] Jun, [facility] [address] [id number] [place] [address]- 9974 Jun, [facility] [address] [id number] [place] [address]- 0532 Jun, [facility] [address] [id number] [place] [address]- 5924 Jun, [facility] [address] [id number], [place] [address]- 6563 Jun, [facility] [address] [id number] [address]- 0910 Jun, [facility] [address] [facility] [id number] Jun, [facility] [address] [id number] [place] [address]- 4461 Jun, [facility] [address] [id number] [place] [address]- 7785 May, [facility] [address] [id number] [place] [address]- 5562 May, [facility] [place] [facility] [address] [id number] [place] [address]- 3155 May, [facility] [place] [facility] [address] [id number] [place] [address]- 2158 May, [facility] [place] [facility] [address] [id number] [place] [address]- 3605 May, [facility] [place] [facility] [address] [id number] [place] [address]- 0112 May, [facility] [address] [id number] May, [facility] [place] [facility] [address] [id number] [place] [address]- 7271 May, [facility] [place] [facility] [address] [id number] [place] [address]- 4777 Apr, [facility] [place] [facility] [address] [id number] [place] [address]- 3301 Apr, [facility] [place] [facility] [address] [id number] [place] [address]- 2429 Apr, [facility] [place] [facility] [address] [id number] [place] [address]- 8295 Apr, [facility] [place] [facility] [address] [id number] [place] [address]- 9863 Apr, [facility] [place] [facility] [address] [id number] [place] [address]- 6841 Apr, [facility] [place] [facility] [address] [id number] [place] [address]- 5837 Apr, [facility] [place] [facility] [address] [id number] [place] [address]- 0684 Apr, [facility] [place] [facility] [address] [id number] [place] [address]- 4487 Apr, [facility] [place] [facility] [address] [facility] [id number] [place] [address] [address] Apr, [facility] [address] [facility] [id number], [place] [address]- 3068 Apr, [facility] [id number] [address]- 6080 Apr, [facility] [address] [id number] March, [facility] [address] [facility] [id number], [place] [address]- 2142 March, [facility] [address] [facility] [id number], [place] [address]- 1047 March, [facility] [address] [facility] [id number][place] [address]- 3238 March, [facility] [id number], [place] [address]- 9385 March, [facility] [address] [facility] [id number], [place] [address]- 0046 March, [facility] [id number], [place] [address]- 8390 Oct, [facility] [address] [facility] [id number], [place] [address]- 6164 Oct, IMMUNIZATIONS No Known Immunizations SOCIAL HISTORY Never Assessed REASON FOR VISIT Routine Visit PLAN OF CARE Activity Details Follow Up prn Reason: VITAL SIGNS MEDICATIONS Medication Instructions Dosage Frequency Start Date End Date Duration Status Exelon 6 MG Orally Twice a day 1 Capsule 12h Jun, Active Magnesium Oxide 500 MG Orally 3 times a day 1 tablet 8h March, Active Amlodipine Besylate 10 MG Orally Once a day 1 tablet 24h Active Senna 8.6 MG Orally Once a day 1 tablet as needed 24h March, Active Lasix 40 Orally Once a day 1 tablet 24h Active Biofreeze 4 % Externally every 4 hrs as needed 1 application to affected area as needed Feb, Active Trazodone HCl 50 MG Orally Once a day 1 tablet at bedtime as needed 24h Active Multivitamins/Fl Active Lactobacillus - Active Famotidine 20 mg Orally twice a day 1 tablet at bedtime 12h Active Losartan Potassium 100 MG Orally Once a day 1 tablet 24h Active Carbidopa-Levodopa 25-100 mg take 1 tablet by Oral route 2 times per day March, Active Aspirin 325 MG Orally Once a day 1 tablet 24h Sep, 30 day(s) Active Acetaminophen 325 MG Orally every 4 hours 2 tablets as needed for pain 4h Active Ibuprofen 200 mg Orally every 6 hrs 2 tablets with food or milk as needed 6h Active Melatonin 3 MG Orally at bedtime 3 tablets at bedtime Active Gabapentin 100 MG Orally Once a day at HS 2 tablets Active Gabapentin 100 MG Orally Once a day 1 capsule 24h March, Active Preparation H 0.25-14-74.9 % Rectal Twice a day Pt to apply herself. Dispense small amt for her as directed Jul, Active Requip 1 MG Orally 2 times a day 1 tablet for restless leg syndrome 12h March, Active Diltiazem CD 240 MG Orally Once a day 1 capsule 24h Active Potassium Chloride ER 20 MEQ Orally 3 times a day 1 tablet 8h Active Cetirizine HCl 10 mg Orally Once a day prn 1 tablet Active Oxcarbazepine 300 Orally at bedtime 1 tablet Active Levothyroxine Sodium 125 MCG Orally Once a day 1 tablet 24h Active Zoloft 100 MG Orally Once a day 1 tablet 24h Jun, Active RESULTS No Results PROCEDURES Procedure Date Ordered Result Body Site Minor complication (15 mins) Sep 28, 2018 INSTRUCTIONS MEDICATIONS ADMINISTERED No Known Medications MEDICAL (GENERAL) HISTORY Type Description Date Medical 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
--- OUTSIDE RECORDS SUMMARY | 2019-03-27 15:15 | XMS REPORT ---
Author Author BEVERLY BALLESTEROS [facility] Address [address] [place] [address] Care Team Providers Care Sampler First Name Role Phone BEVERLY BALLESTEROS Unavailable PROBLEMS Type Condition ICD9-CM Code [id number] Code Onset Dates Condition Status SNOMED Code Problem Dementia without behavioral disturbance, unspecified dementia type F03.90 Active 08860574 Problem Depression F32.9 Active 60431098 Problem Bipolar disorder, unspecified F31.9 Active 76500410 Problem Hypokalemia E87.6 Active 03562320 Problem Type 2 diabetes mellitus without complications E11.9 Active 777632943 Problem Nausea and vomiting, unspecified intactability, vomiting of unspecified type R11.2 Active 44512496 Problem Essential (primary) hypertension I10 Active 26441127 Problem 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 Active 97448644 Problem Nausea R11.0 Active 699858025 Problem Subacute dyskinesia due to drug G24.01 Active 588048863 Problem Seasonal allergic rhinitis due to pollen J30.1 Active 82627904 Problem Diarrhea, unspecified type R19.7 Active 34740777 Problem Acute bilateral low back pain with left-sided sciatica M54.42 Active 338061737 Problem Sciatica, left side M54.32 Active 97371095 Problem Gastroesophageal reflux disease, esophagitis presence not specified K21.9 Active 084440878 Problem Constipation, unspecified constipation type K59.00 Active 65721323 Problem Cough R05 Active 08191871 Problem Primary insomnia F51.01 Active 2661244 Problem Poor appetite R63.0 Active 14790530 Problem Atrial fibrillation with RVR I48.91 Active 509374501830109 Problem Tongue pain K14.6 Active 38156443 Problem Restless leg syndrome G25.81 Active 50566606 Problem Neuropathy G62.9 Active 754717556 Problem Dizziness R42 Active 268069108 Problem Seasonal allergies J30.2 Active 486196828 Problem Pain R52 Active 11380035 Problem Hypothyroidism, unspecified type E03.9 Active 09418117 Problem Allergic rhinitis, unspecified J30.9 Active 29980297 Problem Chronic atrial fibrillation I48.2 Active 470799724 ALLERGIES No Information ENCOUNTERS Encounter Location Date Diagnosis [place] [address] [address] 09 Sep, 2018 Chronic atrial fibrillation I48.2 [place] [address] [place] [id number] [place] [address]901[address] 05 Sep, 2018 [place] [address] [place] [id number] [place] [address] 68389- 2796 Aug, Allergic rhinitis, unspecified J30.9 [place] [address] [place] [id number] [place] [address] 89892- 8558 02 Aug, 2018 [place] [address] [place] [id number] [place] [address] 42947- 8052 13 Jul, 2018 Hemorrhoids, unspecified hemorrhoid type K64.9 [place] [address] [place] [id number] [place] [address] 94378- 5413 13 Jul, 2018 [facility] [address] [place] [id number] Jun, Low back pain M54.5 [place] [address] [place] [address] 38091- 8643 May, [facility] [address] [place] [id number] May, Low back pain M54.5 [place] [address] [place] [address] 08777- 9966 May, [facility] [address] [place] [id number] Apr, Callus of foot L84 [place] [address] [place] [id number] [place] [address] 60479- 4748 Apr, [facility] [address] [place] [id number] Apr, Acute bilateral low back pain with left-sided sciatica M54.42 [place] [address] [place] [id number] [address] Feb, [facility] [address] [place] [id number] Feb, Otalgia of right ear H92.01 [place] [address] [address] Jan, Cough R05 and Pain of left hip joint M25.552 [place] [address] [place] [id number] [address] Dec, [facility] [address] [place] [id number] Dec, Dementia without behavioral disturbance, unspecified dementia type F03.90 [place] [address] [address] Nov, [facility] [address] [place] [id number] Oct, Sciatica, left side M54.32 [place] [address] [place] [id number] [address] Oct, Pain of left hip joint M25.552 [facility] [address] [place] [id number] Sep, Dementia without behavioral disturbance, unspecified dementia type F03.90 [place] [address] [place] [id number] [address] 14 Jul, 2017 Atrial fibrillation with RVR I48.91 [facility] [address] [place] [id number] Jul, Tongue pain K14.6 [place] [address] [place] [id number] [place] [id number] Jul, [place] [address] [place] [id number] [address] Jul, [facility] [address] [place] [id number] Jun, Allergic rhinitis, unspecified J30.9 ; Poor appetite R63.0 and Primary insomnia F51.01 [facility] [address] [place] [address] 09179- 6547 May, Gastroesophageal reflux disease, esophagitis presence not specified K21.9 [facility] [address] [place] [id number] [place] [id number] May, [facility] [address] [id number] Apr, Cervicalgia M54.2 and Depression F32.9 [place] [address] [place] [id number] [place] [address] 53779- 2457 Apr, [place] [address] [place] [id number] [place] [address] 69267- 9319 Apr, [place] [address] [place] [id number] [place] [address] 10000- 7823 Apr, [facility] [address] [id number] Feb, Dementia without behavioral disturbance, unspecified dementia type F03.90 and Depression F32.9 [place] [address] [place] [id number] [place] [address] 95096- 5492 Dec, [place] [address] [place] [id number] [place] [address] 16600- 8859 Dec, [place] [address] [place] [id number] [place] [address] 58394- 9095 Dec, [facility] [address] [id number] Dec, Upper respiratory tract infection, unspecified type J06.9 and Cellulitis of nose, external J34.0 [place] [address] [place] [id number] [place] [address] 03271- 0582 Nov, 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 [place] [address] [place] [id number] [place] [address] 11063- 9134 Oct, [place] [address] [place] [id number] [place] [address] 54322- 5752 Oct, Seasonal allergies J30.2 ; Dizziness R42 ; Nausea R11.0 and Cough R05 [facility] [address] [id number] Oct, Bipolar disorder, unspecified F31.[address] [address] Oct, [facility] [address] [id number] Aug, Seasonal allergic rhinitis due to pollen J30.[address] [address]- [address] Aug, [facility] [id number] Jul, Depression F32.9 and Shakes R25.1 [facility] [id number] Jun, Depression F32.9 [place] [id number] [place] [address] 01056- 2577 May, 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 [place] [id number] [place] [address] 98406- 6985 May, [place] [id number] [place] [address] 66853- 7699 March, Easy bruising R23.8 [place] [id number] [place] [address] 53492- 7629 March, 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 [facility] [id number] March, Essential (primary) hypertension I10 ; Chronic [...] R05 and Dementia w behavior dist F03.91 [place] [address] [address] Feb, [place] [address] 94616- 3331 Feb, Low back pain M54.5 [place] [address] 58275- 3799 Jan, Cough R05 and Diarrhea R19.7 [place] [address] [place] [id number] [place] [address] 37793- 9794 Jan, [place] [address] 62274- 5576 Jan, Depression F32.9 and Dementia without behavioral disturbance , unspecified dementia type F03.90 [place] [address] [place] [id number] [place] [address] 38280- 5077 Jan, [facility] [address] [place] [id number] Dec, Dementia without behavioral disturbance, unspecified dementia type F03.90 and Depression F32.9 [place] [address] 16011- 3034 Dec, [place] [address] [place] [id number] [place] [address] 23215- 4749 04 Dec, 2015 [place] [address] [address]65- 9445 Dec, [facility] [address] [address] Oct, [facility] [address] [place] [id number] Oct, Dementia without behavioral disturbance, unspecified dementia type F03.90 and Depression F32.9 [facility] [address] [place] [id number] [place] [address] 23182- 7986 Jul, Cough 786.2 and Diarrhea 787.91 [facility] [address] [place] [id number] May, Depressive disorder, not elsewhere classified 311 [facility] [address] [place] [id number] [place] [address] 19665- 2426 March, Diarrhea 787.91 ; Depression 311 and Dementia 294.20 [facility] [address] [place] [id number] [place] [address] 41783- 2366 Feb, [facility] [address] [place] [id number] [place] [address] 95894- 7646 Feb, [facility] [address] [place] [id number] Jan, [facility] [address] [place] [id number] [place] [address] 55167- 6848 Jan, [facility] [address] [place] [address] 94420- 2673 Dec, [facility] [address] [place] [id number] [place] [address] 44966- 3734 Dec, [facility] [address] [place] [address] 75181- 7796 Dec, [facility] [address] [place] [id number] Dec, [facility] [address] [address]- 5006 Aug, [facility] [address] [place] [id number] [address]- 1279 Aug, [facility] [address] [id number] [place] [address]- 2475 Aug, [facility] [address] [facility] [id number] Aug, [facility] [address] [id number] [place] [address]- 0464 Jul, [facility] [address] [id number] [place] [address]- 3365 Jul, [facility] [address] [facility] [id number] Jun, [facility] [address] [id number] [place] [address]- 7064 Jun, [facility] [address] [id number] [address]- 1570 Jun, [facility] [address] [id number] [place] [address]- 9756 Jun, [facility] [address] [id number] [place] [address]- 4870 Jun, [facility] [address] [id number] [address]- 8430 Jun, [facility] [address] [facility] [id number] Jun, [facility] [address] [id number] [address]- 1101 Jun, [facility] [place] [facility] [address] [id number] [place] [address]- 3607 May, [facility] [place] [facility] [address] [id number] [place] [address]- 1903 May, [facility] [address] [id number] [place] [address]- 5400 May, [facility] [place] [facility] [address] [id number] [address]- 5407 May, [facility] [place] [facility] [address] [id number] [place] [address]- 8041 May, [facility] [place] [facility] [address] [id number] [place] [address]- 2087 May, [facility] [address] [place] [id number] May, [facility] [place] [facility] [address] [id number] [place] [address]- 3375 May, [facility] [place] [facility] [address] [id number] [place] [address]- 9738 Apr, [facility] [place] [facility] [address] [id number] [place] [address]- 4608 Apr, [facility] [place] [facility] [address] [id number] [place] [address]- 2435 Apr, [facility] [place] [facility] [address] [id number] [place] [address]- 1689 Apr, [facility] [place] [facility] [address] [id number] [place] [address]- 4606 Apr, [facility] [place] [facility] [address] [id number] [place] [address]- 4859 Apr, [facility] [place] [facility] [address] [id number] [address]- 7483 Apr, [facility] [place] [facility] [address] [id number] [place] [address]- 3249 Apr, [facility] [place] [facility] [address] [id number] [place] [address]- 0709 Apr, [facility] [place] [facility] [address] [id number] [place] [address]- 9420 Apr, [facility] [place] [facility] [address] [id number] [place] [address]- 3755 Apr, [facility] [place] [facility] [address] [id number] [address]- 8390 Apr, [facility] [address] [place] [id number] March, [facility] [address] [place] [id number] [address]- 1367 March, [facility] [address] [place] [id number] [address]- 4603 March, [facility] [address] [place] [id number] [address]- 6119 March, [facility] [address] [place] [id number] [address]- 1487 March, [facility] [address] [place] [id number] [address]- 0977 March, [facility] [address] [place] [id number] [address]- 3498 Oct, [facility] [address] [place] [id number] [address] 9971 Oct, IMMUNIZATIONS No Known Immunizations SOCIAL HISTORY Never Assessed REASON FOR VISIT Medication Expense PLAN OF CARE VITAL SIGNS MEDICATIONS Medication Instructions Dosage Frequency Start Date End Date Duration Status Eliquis 2.5 MG Orally 2 times a day 1 tablet 12h 14 Sep, 2018 30 days Active RESULTS No Results PROCEDURES No Known procedures INSTRUCTIONS MEDICATIONS ADMINISTERED No Known Medications MEDICAL (GENERAL) HISTORY Type Description Date Medical 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
--- OUTSIDE RECORDS SUMMARY | 2019-03-27 15:16 | XMS REPORT ---
Author Author BEVERLY BALLESTEROS [facility] Address [address] [place] [address] Care Team Providers Care Pet Caretaker Name Role Phone BEVERLY BALLESTEROS Unavailable PROBLEMS Type Condition ICD9-CM Code NLC85-NA Code Onset Dates Condition Status SNOMED Code Problem Dementia without behavioral disturbance, unspecified dementia type F03.90 Active 97626315 Problem Depression F32.9 Active 73031982 Problem Bipolar disorder, unspecified F31.9 Active 48926515 Problem Hypokalemia E87.6 Active 73314282 Problem Type 2 diabetes mellitus without complications E11.9 Active 684711753 Problem Nausea and vomiting, unspecified intactability, vomiting of unspecified type R11.2 Active 30411514 Problem Essential (primary) hypertension I10 Active 07220193 Problem 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 Active 81099159 Problem Nausea R11.0 Active 761273972 Problem Subacute dyskinesia due to drug G24.01 Active 263895368 Problem Seasonal allergic rhinitis due to pollen J30.1 Active 61108317 Problem Diarrhea, unspecified type R19.7 Active 49994406 Problem Acute bilateral low back pain with left-sided sciatica M54.42 Active 346828822 Problem Sciatica, left side M54.32 Active 69093494 Problem Gastroesophageal reflux disease, esophagitis presence not specified K21.9 Active 128009943 Problem Constipation, unspecified constipation type K59.00 Active 94095004 Problem Cough R05 Active 30629994 Problem Primary insomnia F51.01 Active 7213026 Problem Poor appetite R63.0 Active 95059587 Problem Atrial fibrillation with RVR I48.91 Active 053530098141682 Problem Tongue pain K14.6 Active 58530314 Problem Restless leg syndrome G25.81 Active 20361315 Problem Neuropathy G62.9 Active 356714365 Problem Dizziness R42 Active 624239403 Problem Seasonal allergies J30.2 Active 165290231 Problem Pain R52 Active 40537886 Problem Hypothyroidism, unspecified type E03.9 Active 89767114 Problem Allergic rhinitis, unspecified J30.9 Active 27604514 Problem Chronic atrial fibrillation I48.2 Active 595691935 ALLERGIES No Information ENCOUNTERS Encounter Location Date Diagnosis [place] [id number] [place] [address] 92972- 2479 Aug, Allergic rhinitis, unspecified J30.9 [place] [address] [address]89- 1434 Aug, [place] [id number] [place] [address] 62648- 4168 Jul, Hemorrhoids, unspecified hemorrhoid type K64.9 [place] [id number] [place] [address] 66376- 5018 Jul, [facility] [address] [place] [id number] Jun, Low back pain M54.5 [place] [id number] [place] [address] 56272- 8030 May, [facility] [address] [place] [place] [id number] May, Low back pain M54.5 [place] [id number] [place] [address] 51540- 3350 May, [facility] [address] [place] [place] [id number] Apr, Callus of foot L84 [place] [id number] [place] [address] 98842- 8097 Apr, [facility] [address] [place] [place] [id number] Apr, Acute bilateral low back pain with left-sided sciatica M54.42 [place] [id number] [place] [address] 558323- 4977 Feb, [facility] [address] [place] [place] [id number] Feb, Otalgia of right ear H92.01 [place] [address] [id number] [address] Jan, Cough R05 and Pain of left hip joint M25.552 [place] [id number] [id number] 15 Dec, 2017 [facility] [address] [place] [place] [id number] Dec, Dementia without behavioral disturbance, unspecified dementia type F03.90 [place] [address] [address] Nov, [facility] [address] [place] [place] [id number] Oct, Sciatica, left side M54.32 [place] [id number] [place] [id number] Oct, Pain of left hip joint M25.552 [facility] [place] [address] [place] [place] [id number] Sep, Dementia without behavioral disturbance, unspecified dementia type F03.90 [place] [address] [place] [address] 74704- 4826 14 Jul, 2017 Atrial fibrillation with RVR I48.91 [facility] [address] [place] [place] [id number] 12 Jul, 2017 Tongue pain K14.6 [place] [id number] [id number] 05 Jul, 2017 [place] [address] [place] [address] [id number] [place] [address] [id number] 05 Jul, 2017 [facility] [address] [place] [id number] Jun, Allergic rhinitis, unspecified J30.9 ; Poor appetite R63.0 and Primary insomnia F51.01 [place] [id number] [address] May, Gastroesophageal reflux disease, esophagitis presence not specified K21.9 [place] [address] [id number] [id number] May, [facility] [address] [place] [place] [id number] Apr, Cervicalgia M54.2 and Depression F32.9 [place] [address] [address] Apr, [place] [id number] [place] [address] 67049- 8593 Apr, [place] [address] [place] [address] 34332- 0581 Apr, [facility] [address] [place] [id number] Feb, Dementia without behavioral disturbance, unspecified dementia type F03.90 and Depression F32.9 [address] [place] [address] 31660- 3364 Dec, [place] [id number] [place] [address] 35360- 6384 Dec, [address] [place] [address] 00172- 1323 Dec, [facility] [address] [place] [id number] Dec, Upper respiratory tract infection, unspecified type J06.9 and Cellulitis of nose, external J34.0 [address] [place] [address] 07677- 5133 Nov, 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 [place] [id number] [place] [address] 14291- 2525 Oct, [place] [id number] [place] [address] 34375- 3663 Oct, Seasonal allergies J30.2 ; Dizziness R42 ; Nausea R11.0 and Cough R05 [facility] [address] [id number] Oct, Bipolar disorder, unspecified F31.9 [place] [address] [address] Oct, [facility] [address] [id number] Aug, Seasonal allergic rhinitis due to pollen J30.1 [place] [address] [address] 68[address] Aug, [facility] [address] [id number] Jul, Depression F32.9 and Shakes R25.[address] [facility] [address] [id number] Jun, Depression F32.9 [place] [address] [place] [address] 98801- 9017 May, 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 [place] [address] [place] [address] 46700- 2447 May, [place] [address] [place] [address] 48432- 8591 March, Easy bruising R23.8 [place] [address] [place] [address] 42084- 3704 March, 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 [id number] March, Essential (primary) hypertension I10 ; Chronic [...] R05 and Dementia w behavior dist F03.91 [place] [id number] [place] [address] 75149- 1512 14 Feb, 2016 [place] [address] 59506- 5584 Feb, Low back pain M54.5 [place] [address] 06972- 4717 Jan, Cough R05 and Diarrhea R19.7 [place] [id number] [place] [address] 86478- 3631 Jan, [place] [address] 34541- 6515 Jan, Depression F32.9 and Dementia without behavioral disturbance , unspecified dementia type F03.90 [place] [id number] [place] [address] 86940- 9461 Jan, [facility] [address] [place] [place] [id number] Dec, Dementia without behavioral disturbance, unspecified dementia type F03.90 and Depression F32.9 [place] [id number] [place] [address] 75334- 0799 Dec, [place] [id number] [place] [address] 08514- 6223 Dec, [place] [id number] [place] [address] 44926- 9439 Dec, [place] [id number] [place] [address] 35674- 2392 Oct, [facility] [address] [place] [place] [id number] Oct, Dementia without behavioral disturbance, unspecified dementia type F03.90 and Depression F32.9 [facility] [address], [place] [address] 4924 Jul, Cough 786.2 and Diarrhea 787.91 [facility] [address] [place] [id number] May, Depressive disorder, not elsewhere classified 311 [facility] [id number] [place] [address] 82696- 1083 March, Diarrhea 787.91 ; Depression 311 and Dementia 294.20 [facility] [id number] [place] [address] 98268- 6594 Feb, [facility] [id number] [place] [address] 35324- 6846 Feb, [facility] [address] [place] [place] [id number] Jan, [facility] [id number] [place] [address] 15908- 6335 Jan, [facility] [address] [place] [address] 36410- 7115 Dec, [facility] [id number] [place] [address] 87248- 2398 Dec, [facility] [address], [place] [address] 0017 Dec, [facility] [address] [place] [id number] Dec, [facility] [address] 8292 Aug, [facility] [id number] [place] [address] 72520- 1136 Aug, [facility] [address] [place] [address] 16903- 7636 Aug, [facility] [address] [place] [address] Aug, [facility] [address] [id number] [place] [address]- 0995 Jul, [facility] [address] [id number] [place] [address]- 0766 Jul, [facility] [address] [facility] [place] [id number] Jun, [facility] [address] [id number] [place] [address]- 7546 Jun, [facility] [address] [id number] [place] [address]- 8820 Jun, [facility] [address] [id number] [place] [address]- 9946 Jun, [facility] [address] [id number] [place] [address]- 0637 Jun, [facility] [address] [id number] [place] [address]- 5437 Jun, [facility] [address] [facility] [id number] Jun, [facility] [address] [id number] [place] [address]- 8986 Jun, [facility] [address] [id number] [place] [address]- 8968 May, [facility] [place] [facility] [address] [id number] [place] [address]- 6479 May, [facility] [place] [facility] [address] [id number] [place] [address]- 0081 May, [facility] [place] [facility] [address] [id number] [place] [address]- 1096 May, [facility] [place] [facility] [address] [id number] [place] [address]- 2546 May, [facility] [place] [facility] [address] [id number] [place] [address]- 0241 May, [facility] [address] [facility] [id number] May, [facility] [place] [facility] [address] [id number] [place] [address]- 7513 May, [facility] [place] [facility] [address] [id number] [place] [address]- 6321 Apr, [facility] [place] [facility] [address] [id number] [place] [address]- 8340 Apr, [facility] [place] [facility] [address] [id number] [place] [address]- 3921 Apr, [facility] [place] [facility] [address] [id number] [place] [address]- 8776 Apr, [facility] [place] [facility] [address] [id number] [place] [address]- 8033 Apr, [facility] [place] [facility] [address] [id number] [place] [address]- 6540 Apr, [facility] [place] [facility] [address] [id number] [place] [address]- 9096 Apr, [facility] [place] [facility] [address] [id number] [place] [address]- 1063 Apr, [facility] [place] [facility] [address] [id number] [place] [address]- 2305 Apr, [facility] [place] [facility] [address] [id number] [place] [address]- 1950 Apr, [facility] [place] [facility] [address] [id number] [place] [address]- 4603 Apr, [facility] [place] [facility] [address] [id number] [place] [address]- 9242 Apr, [facility] [address] [facility] [id number] March, [facility] [place] [facility] [address] [id number] [place] [address]- 2229 March, [facility] [address] [facility] [id number] [address]- 3130 March, [facility] [address] [address] 4967 March, [facility] [id number] [address]- 0903 March, [facility] [address] [address] 9341 March, [facility] [id number] [address]- 0695 Oct, [facility] [id number] [address]- 2106 Oct, IMMUNIZATIONS No Known Immunizations SOCIAL HISTORY Never Assessed REASON FOR VISIT psyche retirement med changes PLAN OF CARE VITAL SIGNS MEDICATIONS Medication Instructions Dosage Frequency Start Date End Date Duration Status Cetirizine HCl 10 mg Orally Once a day prn 1 tablet Active RESULTS No Results PROCEDURES No Known procedures INSTRUCTIONS MEDICATIONS ADMINISTERED No Known Medications MEDICAL (GENERAL) HISTORY Type Description Date Medical 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
--- OUTSIDE RECORDS SUMMARY | 2019-03-27 15:16 | XMS REPORT ---
Author Author BEVERLY BALLESTEROS [facility] Address [address] [place] [address] Care Team Providers Care Dumper Mold Cleaner Name Role Phone BEVERLY BALLESTEROS Unavailable PROBLEMS Type Condition ICD9-CM Code KNO78-GE Code Onset Dates Condition Status SNOMED Code Problem Dementia without behavioral disturbance, unspecified dementia type F03.90 Active 10564717 Problem Depression F32.9 Active 47543057 Problem Bipolar disorder, unspecified F31.9 Active 90073593 Problem Hypokalemia E87.6 Active 89183457 Problem Type 2 diabetes mellitus without complications E11.9 Active 321573445 Problem Nausea and vomiting, unspecified intactability, vomiting of unspecified type R11.2 Active 47916100 Problem Essential (primary) hypertension I10 Active 98555836 Problem 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 Active 58019483 Problem Nausea R11.0 Active 885499214 Problem Subacute dyskinesia due to drug G24.01 Active 540818177 Problem Seasonal allergic rhinitis due to pollen J30.1 Active 87477562 Problem Diarrhea, unspecified type R19.7 Active 64232159 Problem Acute bilateral low back pain with left-sided sciatica M54.42 Active 302458631 Problem Sciatica, left side M54.32 Active 27592244 Problem Gastroesophageal reflux disease, esophagitis presence not specified K21.9 Active 348569940 Problem Constipation, unspecified constipation type K59.00 Active 93984944 Problem Cough R05 Active 96716025 Problem Primary insomnia F51.01 Active 7757200 Problem Poor appetite R63.0 Active 59599667 Problem Atrial fibrillation with RVR I48.91 Active 656401779403380 Problem Tongue pain K14.6 Active 70676563 Problem Restless leg syndrome G25.81 Active 96852223 Problem Neuropathy G62.9 Active 436770618 Problem Dizziness R42 Active 310863325 Problem Seasonal allergies J30.2 Active 159352747 Problem Pain R52 Active 69409829 Problem Hypothyroidism, unspecified type E03.9 Active 10840806 Problem Allergic rhinitis, unspecified J30.9 Active 88500855 Problem Chronic atrial fibrillation I48.2 Active 713399481 ALLERGIES No Information ENCOUNTERS Encounter Location Date Diagnosis [place] [id number] [place] [address] 47166- 8760 Aug, [place] [id number] [place] [address] 33967- 4675 Jul, Hemorrhoids, unspecified hemorrhoid type K64.9 [place] [address] [address]- 7487 Jul, [facility] [address] [id number] Jun, Low back pain M54.5 [place] [id number] [place] [address] 06168- 7677 May, [facility] [address] [id number] May, Low back pain M54.5 [place] [id number] [place] [address] 50906- 2138 May, [facility] [address] [id number] Apr, Callus of foot L84 [place] [id number] [place] [address] 30835- 8635 Apr, [facility] [address] [id number] Apr, Acute bilateral low back pain with left-sided sciatica M54.42 [place] [id number] [place] [address] 91779- 7244 Feb, [facility] [address] [id number] Feb, Otalgia of right ear H92.01 [place] [id number] [place] [address] 82139- 4336 Jan, Cough R05 and Pain of left hip joint M25.552 [facility] [address] [id number] [id number] Dec, [facility] [place] [address] [id number] Dec, Dementia without behavioral disturbance, unspecified dementia type F03.90 [facility] [address] [address] Nov, [facility] [address] [id number] Oct, Sciatica, left side M54.32 [place] [id number] [place] [address] [id number] Oct, Pain of left hip joint M25.552 [facility] [address] [id number] Sep, Dementia without behavioral disturbance, unspecified dementia type F03.90 [place] [address] [place] [address] 86048- 0896 Jul, Atrial fibrillation with RVR I48.[address] [id number] Jul, Tongue pain K14.6 [place] [id number] [place] [address] [id number] Jul, [place] [id number] [id number] Jul, [facility] [address] [id number] Jun, Allergic rhinitis, unspecified J30.9 ; Poor appetite R63.0 and Primary insomnia F51.01 [place] [id number] [place] [address] 07654 2546 May, Gastroesophageal reflux disease, esophagitis presence not specified K21.9 [facility] [id number] [id number] May, [facility] [address] [id number] Apr, Cervicalgia M54.2 and Depression F32.9 [place] [id number] [place] [address] 41986- 9128 Apr, [place] [id number] [place] [address] 99376- 2285 Apr, [place] [id number] [place] [address] 35341- 9059 Apr, [facility] [address] [id number] Feb, Dementia without behavioral disturbance, unspecified dementia type F03.90 and Depression F32.9 [place] [id number] [place] [address] 33790- 2611 Dec, [place] [id number] [place] [address] 08604- 0199 Dec, [place] [id number] [place] [address] 95604- 6351 Dec, [facility] [address] [id number] Dec, Upper respiratory tract infection, unspecified type J06.9 and Cellulitis of nose, external J34.[address] [place] [address] 94011- 5398 Nov, 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 [place] [id number] [place] [address] 29346- 9263 Oct, [place] [id number] [place] [address] 54844- 8389 Oct, Seasonal allergies J30.2 ; Dizziness R42 ; Nausea R11.0 and Cough R[address] [facility] [id number] Oct, Bipolar disorder, unspecified F31.9 [place] [id number] [place] [address] 61157- 7525 Oct, [facility] [address] [id number] Aug, Seasonal allergic rhinitis due to pollen J30.1 [place] [address], [place] [address] Aug, [facility] [address] [id number] Jul, Depression F32.9 and Shakes R25.[address] [facility] [address] [id number] Jun, Depression F32.9 [place] [address], [place] [address] 8146 May, 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 [place] [address], [place] [address] 2323 May, [place] [address], [place] [address] 9106 March, Easy bruising R23.8 [place] [id number], [place] [address] 2868 March, 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 [facility] [id number] March, Essential (primary) hypertension I10 ; Chronic [...] R05 and Dementia w behavior dist F03.91 [place] [id number] [place] [address] 97923- 7322 14 Feb, 2016 [place] [id number] [place] [address] 31546- 1356 Feb, Low back pain M54.5 [place] [id number] [place] [address] 31972- 5082 31 Jan, 2016 Cough R05 and Diarrhea R19.7 [place] [id number] [place] [address] 88431- 4927 Jan, [place] [id number] [place] [address] 88488- 2609 Jan, Depression F32.9 and Dementia without behavioral disturbance , unspecified dementia type F03.90 [place] [id number] [place] [address] 59661- 4565 Jan, [facility] [address] [id number] Dec, Dementia without behavioral disturbance, unspecified dementia type F03.90 and Depression F32.9 [place] [id number] [place] [address] 74733- 7653 Dec, [place] [id number] [place] [address] 83936- 6757 Dec, [place] [id number] [place] [address] 21636- 1918 Dec, [place] [id number] [place] [address] 16286- 8403 Oct, [facility] [address] [id number] Oct, Dementia without behavioral disturbance, unspecified dementia type F03.90 and Depression F32.9 [place] [id number] [place] [address] 06414- 9570 Jul, Cough 786.2 and Diarrhea 787.91 [facility] [address] [id number] May, Depressive disorder, not elsewhere classified 311 [facility] [address], [place] [address]- 4976 March, Diarrhea 787.91 ; Depression 311 and Dementia 294.20 [facility] [id number] [place] [address] 88902- 5776 Feb, [facility] [id number] [place] [address] 82566- 2106 Feb, [facility] [address] [id number] Jan, [facility] [id number] [place] [address] 03260- 7976 Jan, [facility] [id number] [place] [address] 23600- 4826 Dec, [facility] [id number] [place] [address] 07101- 4418 Dec, [facility] [id number] [place] [address] 40688- 6156 Dec, [facility] [address] [id number] Dec, [facility] [address] [place] [address] 00461- 8246 Aug, [facility] [address] [place] [address] 28471- 6136 Aug, [facility] [id number] [place] [address] 07042- 6386 Aug, [facility] [address] [id number] Aug, [facility] [address], [place] [address]- 4076 Jul, [facility] [place] [facility] [address] [id number] [place] [address]- 4726 Jul, [facility] [address] [facility] [place] [id number] Jun, [facility] [address] [id number] [place] [address]- 8687 Jun, [facility] [address] [id number] [place] [address]- 9226 Jun, [facility] [address] [id number] [place] [address]- 8900 Jun, [facility] [address] [id number] [place] [address]- 1812 Jun, [facility] [address] [id number] [place] [address]- 8151 Jun, [facility] [address] [id number] Jun, [facility] [address] [id number] [place] [address]- 6003 Jun, [facility] [address] [id number] [place] [address]- 6375 May, [facility] [address] [id number] [place] [address]- 1983 May, [facility] [address] [id number] [place] [address]- 2813 May, [facility] [address] [id number] [place] [address]- 7363 May, [facility] [address] [id number] [place] [address]- 3473 May, [facility] [address] [id number] [place] [address]- 4601 May, [facility] [address] [facility] [id number] May, [facility] [place] [facility] [address] [id number] [place] [address]- 8046 May, [facility] [address] [id number] [place] [address]- 3119 Apr, [facility] [address] [id number] [place] [address]- 6534 Apr, [facility] [address] [id number] [place] [address]- 7256 Apr, [facility] [address] [id number] [place] [address]- 0481 Apr, [facility] [address] [id number] [place] [address]- 0504 Apr, [facility] [address] [id number] [place] [address]- 3661 Apr, [facility] [address] [id number] [place] [address]- 5136 Apr, [facility] [address] [id number] [place] [address]- 2736 Apr, [facility] [address] [id number] [place] [address]- 4949 Apr, [facility] [address] [id number] [place] [address]- 3005 Apr, [facility] [address] [id number] [place] [address]- 0717 Apr, [facility] [address] [id number] [place] [address]- 5025 Apr, [facility] [address] [id number] March, [facility] [address] [id number] [place] [address]- 8056 March, [facility] [address] [id number] [place] [address]- 7234 March, [facility] [address] [facility] [id number], [place] [address]- 3587 March, [facility] [id number] March, [facility] [id number] [address]65 March, [facility] [id number] 2928 Oct, [facility] [address] [facility] [id number] [address]- 4224 Oct, IMMUNIZATIONS No Known Immunizations SOCIAL HISTORY [...]
--- OUTSIDE RECORDS SUMMARY | 2019-03-27 15:16 | XMS REPORT ---
Author Author BEVERLY BALLESTEROS [facility] Address [address] [place] [address] Care Team Providers Care Drapery Worker Name Role Phone BEVERLY BALLESTEROS Unavailable PROBLEMS Type Condition ICD9-CM Code VHH46-HG Code Onset Dates Condition Status SNOMED Code Problem Dementia without behavioral disturbance, unspecified dementia type F03.90 Active 77660058 Problem Depression F32.9 Active 86517604 Problem Bipolar disorder, unspecified F31.9 Active 63353001 Problem Hypokalemia E87.6 Active 89407395 Problem Type 2 diabetes mellitus without complications E11.9 Active 419537469 Problem Nausea and vomiting, unspecified intactability, vomiting of unspecified type R11.2 Active 03433236 Problem Essential (primary) hypertension I10 Active 78700165 Problem 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 Active 77585666 Problem Nausea R11.0 Active 724701140 Problem Subacute dyskinesia due to drug G24.01 Active 114696069 Problem Seasonal allergic rhinitis due to pollen J30.1 Active 45788914 Problem Diarrhea, unspecified type R19.7 Active 81064890 Problem Acute bilateral low back pain with left-sided sciatica M54.42 Active 791092327 Problem Sciatica, left side M54.32 Active 07577057 Problem Gastroesophageal reflux disease, esophagitis presence not specified K21.9 Active 901125729 Problem Constipation, unspecified constipation type K59.00 Active 93702530 Problem Cough R05 Active 38842390 Problem Primary insomnia F51.01 Active 5436089 Problem Poor appetite R63.0 Active 52912319 Problem Atrial fibrillation with RVR I48.91 Active 483679250996731 Problem Tongue pain K14.6 Active 06572533 Problem Restless leg syndrome G25.81 Active 48112822 Problem Neuropathy G62.9 Active 553513829 Problem Dizziness R42 Active 035174026 Problem Seasonal allergies J30.2 Active 250883277 Problem Pain R52 Active 04820399 Problem Hypothyroidism, unspecified type E03.9 Active 66448478 Problem Allergic rhinitis, unspecified J30.9 Active 71711828 Problem Chronic atrial fibrillation I48.2 Active 095596482 ALLERGIES No Information ENCOUNTERS Encounter Location Date Diagnosis [place] [address] [place] [id number] [place] [address] 13 Jul, 2018 Hemorrhoids, unspecified hemorrhoid type K64.9 [place] [address] [address] 13 Jul, 2018 [facility] [address] [id number] Jun, Low back pain M54.5 [place] [address] [address] May, [facility] [address] [place] [id number] May, Low back pain M54.5 [place] [address] [address]390- [address] May, [facility] [address] [id number] Apr, Callus of foot L84 [place] [address] [address] Apr, [facility] [address] [id number] Apr, Acute bilateral low back pain with left-sided sciatica M54.42 [place] [address] [id number]- [address] Feb, [facility] [address] [id number] Feb, Otalgia of right ear H92.01 [place] [address] [id number]- 7901 Jan, Cough R05 and Pain of left hip joint M25.552 [place] [address] [id number] Dec, [facility] [address] [id number] Dec, Dementia without behavioral disturbance, unspecified dementia type F03.90 [place] [address] [address] Nov, [facility] [address] [place] [id number] Oct, Sciatica, left side M54.32 [place] [address] [place] [id number] [place] [id number] Oct, Pain of left hip joint M25.552 [facility] [address] [id number] Sep, Dementia without behavioral disturbance, unspecified dementia type F03.90 [place] [address] [address] 14 Jul, 2017 Atrial fibrillation with RVR I48.91 [facility] [address] [place] [phone] Jul, Tongue pain K14.6 [place] [id number] [place] [id number] Jul, [place] [address] [place] [address] [id number] [place] [id number] Jul, [facility] [address] [id number] Jun, Allergic rhinitis, unspecified J30.9 ; Poor appetite R63.0 and Primary insomnia F51.01 [place] [address] [address] May, Gastroesophageal reflux disease, esophagitis presence not specified K21.9 [place] [address] [place] [id number] [id number] May, [facility] [address] [id number] Apr, Cervicalgia M54.2 and Depression F32.9 [place] [id number] [address] 08 Apr, 2017 [place] [id number] [place] [address]75- 9363 Apr, [facility] [place] [address] [place] [address]18- 9638 Apr, [facility] [address] [place] [id number] Feb, Dementia without behavioral disturbance, unspecified dementia type F03.90 and Depression F32.9 [place] [id number] [place] [address] 82709- 2345 Dec, [place] [address] [address] [id number] [place] [address]38- 3873 Dec, [place] [address] [place] [address] [id number] [place] [address] 47957- 9705 Dec, [facility] [address] [place] [id number] Dec, Upper respiratory tract infection, unspecified type J06.9 and Cellulitis of nose, external J34.0 [place] [address] [place] [address] 12082- 9440 Nov, 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 [place] [address] [place] [address] 59[address]- 4459 Oct, [place] [address] [place] [address] 65943- 3098 Oct, Seasonal allergies J30.2 ; Dizziness R42 ; Nausea R11.0 and Cough R05 [facility] [address] [place] [id number] Oct, Bipolar disorder, unspecified F31.9 [place] [address] [place] [address] 68902- 6283 Oct, [facility] [address] [place] [id number] Aug, Seasonal allergic rhinitis due to pollen J30.1 [place] [address] [place] [id number] [address] Aug, [facility] [address] [id number] Jul, Depression F32.9 and Shakes R25.[address] [facility] [address] [id number] Jun, Depression F32.9 [address] [address] May, 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 [address] [address] May, [address] [place] [address]18- 3857 March, Easy bruising R23.8 [address] [place] [address]885- 0309 March, 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 [facility] [address] [id number] March, Essential (primary) hypertension I10 ; Chronic [...] R05 and Dementia w behavior dist F03.[address] [id number] [address] 14 Feb, 2016 [facility] [place] [address] [place] [address] [id number] [place] [address]- 2004 12 Feb, 2016 Low back pain M54.5 [facility] [place] [address] [place] [address] 92204- 6510 31 Jan, 2016 Cough R05 and Diarrhea R19.7 [facility] [place] [address] [place] [id number] [place] [address] 23810- 8421 Jan, [facility] [place] [address] [address] [id number] [place] [address]60- 5396 Jan, Depression F32.9 and Dementia without behavioral disturbance , unspecified dementia type F03.90 [place] [address] [place] [address] 93837- 0737 Jan, [facility] [address] [id number] Dec, Dementia without behavioral disturbance, unspecified dementia type F03.90 and Depression F32.9 [place] [address] [place] [address] 24474- 7855 Dec, [facility] [place] [address] [place] [address] 34270- 2769 Dec, [place] [address] [place] [address] 83709- 1218 Dec, [facility] [place] [address] [place] [address] 20288- 1522 Oct, [facility] [address] [id number] Oct, Dementia without behavioral disturbance, unspecified dementia type F03.90 and Depression F32.9 [facility] [place] [address] [address]34 Jul, Cough 786.2 and Diarrhea 787.91 [facility] [address] [id number] May, Depressive disorder, not elsewhere classified 311 [facility] [place] [address] [address] March, Diarrhea 787.91 ; Depression 311 and Dementia 294.20 [facility] [place] [address], [place] [address] 1416 Feb, [facility] [place] [address] [id number] [place] [address] 38911- 2489 Feb, [facility] [address] [id number] Jan, [facility] [place] [address] [place] [address] [id number] [place] [address] 79194- 8627 Jan, [facility] [place] [address] [address]- 2537 Dec, [facility] [place] [address] [place] [address] 83982- 5715 Dec, [facility] [place] [address], [place] [address]- 6068 Dec, [facility] [address] [place] [id number] Dec, [facility] [place] [address] [address]- 4594 Aug, [facility] [place] [address] [address]- 2246 Aug, [facility] [place] [address] [place] [id number] [address]- 9106 Aug, [facility] [address] [place] [id number] Aug, [facility] [place] [address] [place] [id number] [address]- 7116 Jul, [facility] [place] [address] [place] [address] [id number], [place] [address]- 6736 Jul, [facility] [address] [facility] [id number] Jun, [facility] [address] [id number] [place] [address]- 7004 Jun, [facility] [address] [id number] [place] [address]- 8983 Jun, [facility] [address] [id number] [place] [address]- 0414 Jun, [facility] [address] [id number] [place] [address]- 7236 Jun, [facility] [address] [id number] [place] [address]- 3855 Jun, [facility] [address] [facility] [id number] Jun, [facility] [address] [id number] [place] [address]- 7750 Jun, [facility] [address] [id number] [place] [address]- 6326 May, [facility] [address] [id number] [place] [address]- 3426 May, [facility] [address] [id number] [place] [address]- 5533 May, [facility] [address] [id number] [place] [address]- 5525 May, [facility] [address] [id number] [place] [address]- 3482 May, [facility] [address] [id number] [place] [address]- 1313 May, [facility] [address] [facility] [id number] May, [facility] [address] [id number] [place] [address]- 0398 May, [facility] [address] [id number] [place] [address]- 4408 Apr, [facility] [address] [id number] [place] [address]- 4751 Apr, [facility] [address] [id number] [place] [address]- 0481 Apr, [facility] [address] [id number] [place] [address]- 4960 Apr, [facility] [address] [id number] [place] [address]- 2989 Apr, [facility] [address] [id number] [place] [address]- 8809 Apr, [facility] [address] [id number] [place] [address]- 2949 Apr, [facility] [address] [id number] [place] [address]- 0589 Apr, [facility] [address] [id number] [place] [address]- 9624 Apr, [facility] [address] [id number] [place] [address]- 8106 Apr, [facility] [address] [id number] [place] [address]- 5757 Apr, [facility] [address] [id number] [place] [address]- 6738 Apr, [facility] [address] [place] [id number] March, [facility] [address] [id number] [place] [address]- 1794 March, [facility] [address] [id number] [place] [address]- 2862 March, [facility] [address] [id number] [place] [address]- 4841 March, [facility] [place] [address] [facility] [id number] [place] [address]- 4876 March, [facility] [place] [address] [facility] [id number], [place] [address]- 8211 March, [facility] [place] [address] [facility] [id number], [place] [address]- 7025 Oct, [facility] [place] [address] [facility] [id number] [address]- 9326 Oct, IMMUNIZATIONS No Known Immunizations SOCIAL HISTORY Never Assessed REASON FOR VISIT Rx for Preparation H PLAN OF CARE VITAL SIGNS MEDICATIONS Medication Instructions Dosage Frequency Start Date End Date Duration Status Preparation H 0.25-14-74.9 % Rectal Twice a day Pt to apply herself. 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
--- OUTSIDE RECORDS SUMMARY | 2019-03-27 15:17 | XMS REPORT ---
Author Author BEVERLY BALLESTEROS [facility] Address [address] [place] [address] Care Team Providers Care Windows Application Packager Name Role Phone BEVERLY BALLESTEROS Unavailable PROBLEMS Type Condition ICD9-CM Code IJM06-HB Code Onset Dates Condition Status SNOMED Code Problem Dementia without behavioral disturbance, unspecified dementia type F03.90 Active 50337231 Problem Depression F32.9 Active 91270444 Problem Bipolar disorder, unspecified F31.9 Active 90244866 Problem Hypokalemia E87.6 Active 76943972 Problem Type 2 diabetes mellitus without complications E11.9 Active 282127866 Problem Nausea and vomiting, unspecified intactability, vomiting of unspecified type R11.2 Active 47172741 Problem Essential (primary) hypertension I10 Active 34313381 Problem 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 Active 09064023 Problem Nausea R11.0 Active 142138037 Problem Subacute dyskinesia due to drug G24.01 Active 071896959 Problem Seasonal allergic rhinitis due to pollen J30.1 Active 17614199 Problem Diarrhea, unspecified type R19.7 Active 74868174 Problem Acute bilateral low back pain with left-sided sciatica M54.42 Active 354119831 Problem Sciatica, left side M54.32 Active 64496721 Problem Gastroesophageal reflux disease, esophagitis presence not specified K21.9 Active 264376537 Problem Constipation, unspecified constipation type K59.00 Active 02062473 Problem Cough R05 Active 97684324 Problem Primary insomnia F51.01 Active 7456440 Problem Poor appetite R63.0 Active 13328430 Problem Atrial fibrillation with RVR I48.91 Active 873149786921620 Problem Tongue pain K14.6 Active 09528879 Problem Restless leg syndrome G25.81 Active 74515570 Problem Neuropathy G62.9 Active 106232637 Problem Dizziness R42 Active 611719066 Problem Seasonal allergies J30.2 Active 240570200 Problem Pain R52 Active 93809061 Problem Hypothyroidism, unspecified type E03.9 Active 41014527 Problem Allergic rhinitis, unspecified J30.9 Active 61499637 Problem Chronic atrial fibrillation I48.2 Active 014527766 ALLERGIES No Information ENCOUNTERS Encounter Location Date Diagnosis [place] [address] [place] [id number] [place] [address] 13 Jul, 2018 Hemorrhoids, unspecified hemorrhoid type K64.9 [place] [address] [address] 13 Jul, 2018 [facility] [address] [place] [id number] Jun, Low back pain M54.5 [place] [address] [address] May, [facility] [address] [place] [id number] May, Low back pain M54.5 [place] [address] 746162- 2856 May, [facility] [address] [id number] Apr, Callus of foot L84 [place] [address] [address]- [address] Apr, [facility] [address] [id number] Apr, Acute bilateral low back pain with left-sided sciatica M54.42 [place] [address] [id number]- 3636 Feb, [facility] [address] [id number] Feb, Otalgia of right ear H92.01 [place] [address] [id number]- [address] Jan, Cough R05 and Pain of left hip joint M25.552 [place] [address] [id number] Dec, [facility] [address] [place] [id number] Dec, Dementia without behavioral disturbance, unspecified dementia type F03.90 [place] [address], [place] [address] Nov, [facility] [address] [place] [id number] Oct, Sciatica, left side M54.32 [place] [address] [address] [id number] [place] [id number] Oct, Pain of left hip joint M25.552 [facility] [address] [place] [id number] Sep, Dementia without behavioral disturbance, unspecified dementia type F03.90 [place] [address], [place] [address] 14 Jul, 2017 Atrial fibrillation with RVR I48.91 [facility] [address] [place] [id number] Jul, Tongue pain K14.6 [place] [id number] [place] [id number] Jul, [place] [address] [address] [id number] [place] [id number] Jul, [facility] [address] [place] [address] Jun, Allergic rhinitis, unspecified J30.9 ; Poor appetite R63.0 and Primary insomnia F51.01 [place] [address], [place] [address] May, Gastroesophageal reflux disease, esophagitis presence not specified K21.9 [place] [address] [id number] [id number] May, [facility] [address] [place] [id number] Apr, Cervicalgia M54.2 and Depression F32.9 [place] [id number] [address] 08 Apr, 2017 [place] [address] [place] [address]50- 0514 Apr, [facility] [address] [place] [address] 75395- 8620 Apr, [facility] [address] [place] [id number] Feb, Dementia without behavioral disturbance, unspecified dementia type F03.90 and Depression F32.9 [place] [address] [place] [address] 58299- 2621 Dec, [place] [address] [place] [address] [id number] [place] [address] 72053- 3602 Dec, [place] [address] [address] [id number] [place] [address] 92084- 0054 Dec, [facility] [address] [place] [id number] Dec, Upper respiratory tract infection, unspecified type J06.9 and Cellulitis of nose, external J34.0 [place] [address] [place] [address] 39506- 2873 Nov, 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 [place] [address] [place] [address] 40980- 7527 Oct, [place] [address] [place] [address] 14653- 9374 Oct, Seasonal allergies J30.2 ; Dizziness R42 ; Nausea R11.0 and Cough R05 [facility] [address] [place] [id number] Oct, Bipolar disorder, unspecified F31.9 [place] [address] [place] [address] 17099- 4922 Oct, [facility] [address] [place] [id number] Aug, Seasonal allergic rhinitis due to pollen J30.1 [place] [address] [place] [address] [id number], [place] [address] Aug, [facility] [address] [id number] Jul, Depression F32.9 and Shakes R25.[address] [facility] [address] [id number] Jun, Depression F32.9 [address], [place] [address] May, 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 [address], [place] [address] May, [address] [place] [address] 18101- 5508 March, Easy bruising R23.8 [address] [place] [address] 82234- 8352 March, 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 [facility] [address] [id number] March, Essential (primary) hypertension I10 ; Chronic [...] R05 and Dementia w behavior dist F03.[address] [id number] [address] 14 Feb, 2016 [facility] [id number] [place] [address] 23188- 2502 12 Feb, 2016 Low back pain M54.5 [facility] [address] [place] [address] 22082- 4395 31 Jan, 2016 Cough R05 and Diarrhea R19.7 [facility] [address] [id number] [place] [address] 03460- 1210 Jan, [facility] [id number] [place] [address] 95892- 3408 Jan, Depression F32.9 and Dementia without behavioral disturbance , unspecified dementia type F03.90 [place] [address] [place] [address] 52864- 2021 Jan, [facility] [address] [place] [id number] Dec, Dementia without behavioral disturbance, unspecified dementia type F03.90 and Depression F32.9 [place] [address] [place] [address] 51815- 5017 Dec, [facility] [address] [place] [address] 59041- 7892 Dec, [place] [address] [place] [address] 71151- 5537 Dec, [facility] [address] [place] [address] 12311- 4173 Oct, [facility] [address] [place] [id number] Oct, Dementia without behavioral disturbance, unspecified dementia type F03.90 and Depression F32.9 [facility] [address], [place] [address] 1338 Jul, Cough 786.2 and Diarrhea 787.91 [facility] [address] [place] [id number] May, Depressive disorder, not elsewhere classified 311 [facility] [address], [place] [address] March, Diarrhea 787.91 ; Depression 311 and Dementia 294.20 [facility] [address], [place] [address]- 1586 Feb, [facility] [id number] [place] [address] 25157- 8625 Feb, [facility] [address] [place] [id number] Jan, [facility] [id number] [place] [address] 65611- 3030 Jan, [facility] [address], [place] [address]- 5149 Dec, [facility] [address] [place] [address] 74575- 8928 Dec, [facility] [address], [place] [address]- 37[address] Dec, [facility] [address] [place] [id number] Dec, [facility] [address], [place] [address]- 9203 Aug, [facility] [address], [place] [address] 5416 Aug, [facility] [address] [id number], [place] [address]- 7376 Aug, [facility] [address] [place] [place] [id number] Aug, [facility] [address] [id number], [place] [address]- 0786 Jul, [facility] [address] [id number], [place] [address] 6026 Jul, [facility] [address] [facility] [id number] Jun, [facility] [address] [id number] [place] [address]- 1316 Jun, [facility] [address] [id number] [place] [address]- 2225 Jun, [facility] [address] [id number] [place] [address]- 2882 Jun, [facility] [address] [id number] [place] [address]- 3555 Jun, [facility] [address] [id number] [place] [address]- [address]77 Jun, [facility] [address] [facility] [id number] Jun, [facility] [address] [id number] [place] [address]- 4450 Jun, [facility] [address] [id number] [place] [address]- 6331 May, [facility] [address] [id number] [place] [address]- 1019 May, [facility] [address] [id number] [place] [address]- 3646 May, [facility] [address] [id number] [place] [address]- 1934 May, [facility] [address] [id number] [place] [address]- 4462 May, [facility] [address] [id number] [place] [address]- 2697 May, [facility] [address] [facility] [id number] May, [facility] [address] [id number] [place] [address]- 6370 May, [facility] [address] [id number] [place] [address]- 6645 Apr, [facility] [address] [id number] [place] [address]- 8811 Apr, [facility] [address] [id number] [place] [address]- 7146 Apr, [facility] [address] [id number] [place] [address]- 0142 Apr, [facility] [address] [id number] [place] [address]- 2016 Apr, [facility] [address] [id number] [place] [address]- 2743 Apr, [facility] [address] [id number] [place] [address]- 4311 Apr, [facility] [address] [id number] [place] [address]- 9104 Apr, [facility] [address] [id number] [place] [address]- 0770 Apr, [facility] [address] [id number] [place] [address]- 5361 Apr, [facility] [address] [id number] [place] [address]- 8105 Apr, [facility] [address] [id number] [place] [address]- 8806 Apr, [facility] [address] [id number] March, [facility] [address] [id number] [place] [address]- 5085 March, [facility] [address] [id number] [place] [address]- 5871 March, [facility] [address] [id number] [place] [address]- 6647 March, [facility] [address] [facility] [id number] [address] March, [facility] [address] [facility] [id number] [address]- 0819 March, [facility] [address] [facility] [id number], [place] [address]- 6129 Oct, [facility] [address] [facility] [id number], [place] [address]- 6[address] Oct, IMMUNIZATIONS No Known Immunizations SOCIAL HISTORY Never Assessed REASON FOR VISIT med list update PLAN OF CARE VITAL SIGNS MEDICATIONS Medication Instructions Dosage Frequency Start Date End Date Duration Status Famotidine 20 mg Orally twice a day 1 tablet at bedtime 12h Active Imodium A-D 2 MG Orally 8 time(s) a day 1 tablet as needed for Diarrhea Active Senna 8.6 MG Orally Once a day 1 tablet as needed 24h March, Active Gabapentin 100 MG Orally Once a day 1 capsule 24h March, Active Requip 1 MG Orally 2 times a day 1 tablet for restless leg syndrome 12h March, Active Tramadol HCl 50 mg Orally every 24 hrs 1 tablet as needed Active Ibuprofen 200 mg Orally every 6 hrs 2 tablets with food or milk as needed 6h Active Oxcarbazepine 300 Orally at bedtime 1 tablet Active Biofreeze 4 % Externally every 4 hrs as needed 1 application to affected area as needed Feb, Active Multivitamins/Fl Active Lactobacillus - Active Cetirizine HCl 10 mg Orally Once a day 1 tablet 24h Active Magnesium Oxide 500 MG Orally 3 times a day 1 tablet 8h March, Active Amlodipine Besylate 10 MG Orally Once a day 1 tablet 24h Active Acetaminophen 325 MG Orally every 4 hours 2 tablets as needed for pain 4h Active Lasix 40 Orally Once a day 1 tablet 24h Active Trazodone HCl 50 MG Orally Once a day 1 tablet at bedtime as needed 24h Active Losartan Potassium 100 MG Orally Once a day 1 tablet 24h Active Gabapentin 100 MG Orally Once a day at HS 2 tablets Active Exelon 6 MG Orally Twice a day 1 Capsule 12h Jun, Active Potassium Chloride ER 20 MEQ Orally 3 times a day 1 tablet 8h Active Melatonin 3 MG Orally at bedtime 3 tablets at bedtime Active Zoloft 100 MG Orally Once a day 1 tablet 24h Jun, Active Carbidopa-Levodopa 25-100 mg take 1 tablet by Oral route 2 times per day March, Active Diltiazem CD 240 MG Orally Once a day 1 capsule 24h Active Levothyroxine Sodium 125 MCG Orally Once a day 1 tablet 24h Active Xarelto 10 MG Orally Once a day 1 tablet 24h Active RESULTS No Results PROCEDURES No Known procedures INSTRUCTIONS MEDICATIONS ADMINISTERED No Known Medications MEDICAL (GENERAL) HISTORY Type Description Date Medical 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
[2019-03-27] MEDS ORDERED: DILTIAZEM 25 MG/5 ML INJ (CARDIZEM) VIAL ONE (15:18)
--- OUTSIDE RECORDS SUMMARY | 2019-03-27 15:30 | XMS REPORT | Continuity of Care Document ---
Author Organization Unknown Address Unknown Allergies Active Description Code Type Severity Reaction Onset Reported/Identified Relationship to Patient Clinical Status Yes amitriptyline [id number] Drug Allergy Mild PSYCH-HYPERACTI 08/27/2009 Yes Ativan Drug Allergy N/A N/A 04/04/2014 Yes Haldol Drug Allergy N/A N/A 04/04/2014 Yes Valium Drug Allergy N/A N/A 04/04/2014 Yes diazepam [id number] Drug Allergy Unknown N/A 08/02/2015 Yes haloperidol [id number] Drug Allergy Unknown N/A 08/02/2015 Yes lorazepam [id number] Drug Allergy Unknown N/A 08/02/2015 Medications There [...] Ot 276.8 HYPOPOTASSEMIA 07/29/2013 MCKINLEY HYDE DO K Ot 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 07/29/2013 MCKINLEY HYDE DO Ot 300.00 ANXIETY STATE NOS 07/29/2013 MCKINLEY HYDE DO K Ot 331.0 ALZHEIMER'S DISEASE 07/29/2013 MCKINLEY HYDE DO K Ot 333.94 RESTLESS LEGS SYNDROME 07/29/2013 MCKINLEY HYDE DO Ot 401.9 HYPERTENSION NOS 04/10/2014 VERONIAC SPRINGER MD 250.00 DIABETES MELLITUS WITHOUT MENTION OF COMPLICATION TYPE II OR UNSPECIFIED TYPE NOT STATED UNCONTROLLED 04/10/2014 VERONICA SPRINGER MD 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 04/10/2014 VERONICA SPRINGER MD 311 DEPRESSIVE DISORDER NOT ELSEWHERE CLASSIFIED 04/10/2014 VERONICA SPRINGER MD 401.1 BENIGN ESSENTIAL HYPERTENSION 04/10/2014 VERONICA SPRINGER MD 427.31 ATRIAL FIBRILLATION 04/10/2014 YENIFER BALLESTEROS APRNNDA S 250.00 DIABETES MELLITUS WITHOUT MENTION OF COMPLICATION TYPE II OR UNSPECIFIED TYPE NOT STATED UNCONTROLLED 04/10/2014 FAVIAN WILKINSON BEVERLY S 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 04/10/2014 YENIFER BALLESTEROS APRNNDA S 311 DEPRESSIVE DISORDER NOT ELSEWHERE CLASSIFIED 04/10/2014 YENIFER BALLESTEROS APRNNDA S 401.1 BENIGN ESSENTIAL HYPERTENSION 04/10/2014 FAVIAN WILKINSON BEVERLY S 427.31 ATRIAL FIBRILLATION 04/10/2014 FAVIAN WILKINSON, BEVERLY S 250.00 DIABETES MELLITUS WITHOUT MENTION OF COMPLICATION TYPE II OR UNSPECIFIED TYPE NOT STATED UNCONTROLLED 04/10/2014 FAVIAN WILKINSON BEVERLY S 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 04/10/2014 [facility] TECH, BEVERLY S 311 DEPRESSIVE DISORDER NOT ELSEWHERE CLASSIFIED 04/10/2014 FAVIAN WILKINSON BEVERLY S 401.1 BENIGN ESSENTIAL HYPERTENSION 04/10/2014 FAVIAN WILKINSON BEVERLY S 427.31 ATRIAL FIBRILLATION 04/10/2014 FAVIAN WILKINSON, BEVERLY S 250.00 DIABETES MELLITUS WITHOUT MENTION OF COMPLICATION TYPE II OR UNSPECIFIED TYPE NOT STATED UNCONTROLLED 04/10/2014 FAVIAN WILKINSON BEVERLY S 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 04/10/2014 [facility] TECH, BEVERLY S 311 DEPRESSIVE DISORDER NOT ELSEWHERE CLASSIFIED 04/10/2014 [facility] TECH, BEVERLY S 401.1 BENIGN ESSENTIAL HYPERTENSION 04/10/2014 [facility] TECH, BEVERLY S 427.31 ATRIAL FIBRILLATION 04/10/2014 VERONICA SPRINGER MD 250.00 DIABETES MELLITUS WITHOUT MENTION OF COMPLICATION TYPE II OR UNSPECIFIED TYPE NOT STATED UNCONTROLLED 04/10/2014 VERONICA SPRINGER MD 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 04/10/2014 VERONICA SPRINGER MD 311 DEPRESSIVE DISORDER NOT ELSEWHERE CLASSIFIED 04/10/2014 VERONICA SPRINGER MD 401.1 BENIGN ESSENTIAL HYPERTENSION 04/10/2014 VERONICA SPRINGER MD 427.31 ATRIAL FIBRILLATION 04/10/2014 [facility] TECH, BEVERLY S 250.00 DIABETES MELLITUS WITHOUT MENTION OF COMPLICATION TYPE II OR UNSPECIFIED TYPE NOT STATED UNCONTROLLED 04/10/2014 [facility] TECH, BEVERLY S 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 04/10/2014 FAVIAN WILKINSON, BEVERLY S 311 DEPRESSIVE DISORDER NOT ELSEWHERE CLASSIFIED 04/10/2014 [facility] TECH, BEVERLY S 401.1 BENIGN ESSENTIAL HYPERTENSION 04/10/2014 [facility] TECH, BEVERLY S 427.31 ATRIAL FIBRILLATION 04/10/2014 [facility] TECH, BEVERLY S 250.00 DIABETES MELLITUS WITHOUT MENTION OF COMPLICATION TYPE II OR UNSPECIFIED TYPE NOT STATED UNCONTROLLED 04/10/2014 [facility] TECH, BEVERLY S 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 04/10/2014 [facility] TECH, BEVERLY S 311 DEPRESSIVE DISORDER NOT ELSEWHERE CLASSIFIED 04/10/2014 [facility] TECH, BEVERLY S 401.1 BENIGN ESSENTIAL HYPERTENSION 04/10/2014 [facility] TECH, BEVERLY S 427.31 ATRIAL FIBRILLATION 04/10/2014 [facility] TECH, BEVERLY S 250.00 DIABETES MELLITUS WITHOUT MENTION OF COMPLICATION TYPE II OR UNSPECIFIED TYPE NOT STATED UNCONTROLLED 04/10/2014 [facility] TECH, BEVERLY S 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 04/10/2014 [facility] TECH, BEVERLY S 311 DEPRESSIVE DISORDER NOT ELSEWHERE CLASSIFIED 04/10/2014 [facility] TECH, BEVERLY S 401.1 BENIGN ESSENTIAL HYPERTENSION 04/10/2014 [facility] TECH, BEVERLY S 427.31 ATRIAL FIBRILLATION 05/15/2014 [facility] TECH, BEVERLY S 296.80 BIPOLAR DISORDER UNSPECIFIED 05/15/2014 [facility] TECH, BEVERLY S 296.80 BIPOLAR DISORDER UNSPECIFIED 05/15/2014 VERONICA SPRINGER MD 296.80 BIPOLAR DISORDER UNSPECIFIED 05/15/2014 [facility] TECH, BEVERLY S 296.80 BIPOLAR DISORDER UNSPECIFIED 05/15/2014 [facility] TECH, BEVERLY S 296.80 BIPOLAR DISORDER UNSPECIFIED 05/15/2014 [facility] TECH, BEVERLY S 296.80 BIPOLAR DISORDER UNSPECIFIED 06/19/2014 [facility] TE[facility], BEVERLY S 786.2 COUGH 06/19/2014 VERONICA SPRINGER MD 786.2 COUGH 06/19/2014 [facility] TECH, BEVERLY S 786.2 COUGH 06/19/2014 [facility] TECH, BEVERLY S 786.2 COUGH 06/19/2014 [facility] TECH, BEVERLY S 786.2 COUGH 06/24/2014 VERONICA SPRINGER MD 477.9 ALLERGIC RHINITIS CAUSE UNSPECIFIED 06/24/2014 [facility] TECH, BEVERLY S 477.9 ALLERGIC RHINITIS CAUSE UNSPECIFIED 06/24/2014 [facility] TECH, BEVERLY S 477.9 ALLERGIC RHINITIS CAUSE UNSPECIFIED 06/24/2014 [facility] TECH, BEVERLY S 477.9 ALLERGIC RHINITIS CAUSE UNSPECIFIED 07/03/2014 [facility] TECH, BEVERLY S 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 07/03/2014 [facility] TECH, BEVERLY S 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 07/03/2014 [facility] TECH, BEVERLY S 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4 DIZZINESS AND GIDDINESS 08/04/2015 VERONICA SPRINGER MD Ot 244.9 HYPOTHYROIDISM NOS 08/04/2015 VERONICA SPRINGER MD Ot 294.10 DEMENTIA IN CONDITIONS W/O BEHAVIORAL [...] 08/04/2015 VERONICA SPRINGER MD Ot 244.9 08/04/2015 VERONICA SPRINGER MD Ot 294.10 08/04/2015 RACHEAL GONSALEZ, VERONICA F [...] F Ot 780.52 08/04/2015 RACHEAL GONSALEZ, VERONICA Styles Ot 782.3 08/04/2015 RACHEAL GONSALEZ, VERONICA Styles Ot 785.9 08/04/2015 RACHEAL GONSALEZ, VERONICA Styles Ot E942.9 08/04/2015 RACHEAL GONSALEZ, VERONICA Styles Ot V15.82 08/04/2015 RACHEAL GONSALEZ, VERONICA Styles Ot V15.88 08/08/2015 Ot 511.9 08/08/2015 Ot 789.06 08/08/2015 Ot V81.5 08/08/2015 Ot 511.9 08/08/2015 Ot 496 08/08/2015 CHANDLER GONSALEZ, CAMDEN Agus Ot V72.84 08/08/2015 NINA GONSALEZ, WALTER Gilbert Ot 244.9 HYPOTHYROIDISM NOS 08/08/2015 NINA GONSALEZ, WALTER Gilbert Ot 250.00 DIAB THOMAS WO COMPL, TYPE [...] MD Ot V58.69 OTH MED,LT,CURRENT USE 11/18/2015 BARRETTMary CRUZ MCKINLEY K Ot F03.90 UNSPECIFIED DEMENTIA WITHOUT BEHAVIORAL 11/18/2015 BARRETTMary CRUZ MCKINLEY K Ot N39.0 URINARY TRACT INFECTION, SITE NOT SPECIF 11/18/2015 BARRETT CRUZ MCKINLEY K Ot R11.2 NAUSEA WITH VOMITING, UNSPECIFIED 11/18/2015 BARRETT CRUZ MCKINLEY K Ot R42 DIZZINESS AND GIDDINESS 11/20/2015 SHON FRANKLIN MD Ot F03.90 UNSPECIFIED DEMENTIA WITHOUT BEHAVIORAL 11/20/2015 SHON FRANKLIN MD Ot Z59.3 PROBLEMS RELATED TO LIVING IN RESIDENTIA 11/20/2015 SHON FRANKLIN MD Ot Z66 DO NOT RESUSCITATE 11/20/2015 SHON FRANKLIN MD Ot Z79.02 [facility] (CURRENT) USE OF ANTITHROMBOTI 04/14/2016 BARRETT DO, [...] K Ot 530.81 ESOPHAGEAL REFLUX 01/12/2017 BARRETT CRUZ, MCKINLEY K Ot 780.4 DIZZINESS AND GIDDINESS 02/22/2017 JESSICA PAINTING BEHAVIORAL HEALTH TECH Ot E11.9 TYPE 2 DIABETES MELLITUS WITHOUT COMPLIC 02/22/2017 JESSICA PAINTING APRN Ot F41.9 ANXIETY DISORDER, UNSPECIFIED 02/22/2017 JESSICA PAINTING BEHAVIORAL HEALTH TECH Ot I10 ESSENTIAL (PRIMARY) HYPERTENSION 02/22/2017 JESSICA PAINTING BEHAVIORAL HEALTH TECH Ot I48.2 CHRONIC ATRIAL FIBRILLATION 02/22/2017 JESSICA PAINTING BEHAVIORAL HEALTH TECH Ot R07.89 OTHER CHEST PAIN 02/22/2017 JESSICA PAINTING APRN Ot R07.9 CHEST PAIN, UNSPECIFIED 02/22/2017 JESSICA PAINTING BEHAVIORAL HEALTH TECH Ot Z79.82 CAREER RESOURCE TECHNICIAN (CURRENT) USE OF ASPIRIN 02/22/2017 JESSICA PAINTING BEHAVIORAL HEALTH TECH Ot Z79.84 [facility] (CURRENT) USE OF ORAL HYPOGLYC 02/22/2017 JESSICA PAINTING APRN Ot Z79.899 OTHER CAREER RESOURCE TECHNICIAN (CURRENT) DRUG THERAPY 02/23/2017 JESSICA PAINTING APRN Ot E11.9 TYPE 2 DIABETES MELLITUS WITHOUT COMPLIC 02/23/2017 JESSICA PAINTING APRN Ot F41.9 ANXIETY DISORDER, UNSPECIFIED 02/23/2017 JESSICA PAINTING APRN Ot I10 ESSENTIAL (PRIMARY) HYPERTENSION 02/23/2017 JESSICA PAINTING APRN Ot I48.2 CHRONIC ATRIAL FIBRILLATION 02/23/2017 JESSICA PAINTING APRN Ot R07.89 OTHER CHEST PAIN 02/23/2017 JESSICA PAINTING BEHAVIORAL HEALTH TECH Ot R07.9 CHEST PAIN, UNSPECIFIED 02/23/2017 JESSICA PAINTING BEHAVIORAL HEALTH TECH Ot Z79.82 CAREER RESOURCE TECHNICIAN (CURRENT) USE OF ASPIRIN 02/23/2017 JESSICA PAINTING BEHAVIORAL HEALTH TECH Ot Z79.84 [facility] (CURRENT) USE OF ORAL HYPOGLYC 02/23/2017 JESSICA PAINTING BEHAVIORAL HEALTH TECH Ot Z79.899 OTHER CAREER RESOURCE TECHNICIAN (CURRENT) DRUG THERAPY 02/28/2017 JESSICA PAINTING APRN Ot E11.9 TYPE 2 DIABETES MELLITUS WITHOUT COMPLIC 02/28/2017 JESSICA PAINTING APRN Ot F41.9 ANXIETY DISORDER, UNSPECIFIED 02/28/2017 JESSICA PAINTING BEHAVIORAL HEALTH TECH Ot I10 ESSENTIAL (PRIMARY) HYPERTENSION 02/28/2017 PAINTING, JESSICA Fragoso BEHAVIORAL HEALTH TECH Ot I48.2 CHRONIC ATRIAL FIBRILLATION 02/28/2017 JESSICA PAINTING BEHAVIORAL HEALTH TECH Ot R07.89 OTHER CHEST PAIN 02/28/2017 PAINTINGJESSICA BEHAVIORAL HEALTH TECH Ot R07.9 CHEST PAIN, UNSPECIFIED 02/28/2017 PAINTINGJESSICA BEHAVIORAL HEALTH TECH Ot Z79.82 [facility] (CURRENT) USE OF ASPIRIN 02/28/2017 JESSICA PAINTING BEHAVIORAL HEALTH TECH Ot Z79.84 [facility] (CURRENT) USE OF ORAL HYPOGLYC 02/28/2017 JESSICA PAINTING BEHAVIORAL HEALTH TECH Ot Z79.899 OTHER CAREER RESOURCE TECHNICIAN (CURRENT) DRUG THERAPY 06/02/2017 DONOVAN GONSALEZ, YELENA Oviedo Ot E03.9 HYPOTHYROIDISM, UNSPECIFIED 06/02/2017 DONOVAN GONSALEZ, YELENA Oviedo Ot E11.9 TYPE 2 DIABETES MELLITUS WITHOUT COMPLIC 06/02/2017 DONOVAN GONSALEZ, YELENA Oviedo Ot F02.81 DEMENTIA IN OTH DISEASES CLASSD ELSWHR W 06/02/2017 YELENA MAN MD R Ot F31.9 BIPOLAR DISORDER, UNSPECIFIED 06/02/2017 YELENA MAN MD R Ot F41.9 ANXIETY DISORDER, UNSPECIFIED 06/02/2017 YELENA MAN MD Ot 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 06/02/2017 DONOVAN GONSALEZ, YELENA R Ot G25.81 RESTLESS LEGS SYNDROME 06/02/2017 YELENA MAN MD Ot G30.9 ALZHEIMER'S DISEASE, UNSPECIFIED 06/02/2017 YELENA MAN MD Ot G47.00 INSOMNIA, UNSPECIFIED 06/02/2017 YELENA MAN MD Ot I10 ESSENTIAL (PRIMARY) HYPERTENSION 06/02/2017 YELENA MAN MD Ot I48.91 UNSPECIFIED ATRIAL FIBRILLATION 06/02/2017 YELENA MAN MD Ot K21.9 GASTRO-ESOPHAGEAL REFLUX DISEASE WITHOUT 06/02/2017 YELENA MAN MD Ot R07.9 CHEST PAIN, UNSPECIFIED 06/02/2017 YELENA MAN MD Ot R42 DIZZINESS AND GIDDINESS 06/02/2017 YELENA MAN MD Ot R45.1 RESTLESSNESS AND AGITATION 06/02/2017 YELENA MAN MD Ot Z66 DO NOT RESUSCITATE 06/02/2017 YELENA MAN MD Ot Z79.02 [facility] (CURRENT) USE OF ANTITHROMBOTI 06/02/2017 YELENA MAN MD Ot Z79.82 CAREER RESOURCE TECHNICIAN (CURRENT) USE OF ASPIRIN 06/02/2017 YELENA MAN MD Ot Z79.84 [facility] (CURRENT) USE OF ORAL HYPOGLYC 06/02/2017 YELENA MAN MD Ot Z87.891 PERSONAL HISTORY OF NICOTINE DEPENDENCE 06/03/2017 YELENA MAN MD Ot E03.9 HYPOTHYROIDISM, UNSPECIFIED 06/03/2017 DONOVAN GONSALEZ, YELENA Oviedo Ot E11.9 TYPE 2 DIABETES MELLITUS WITHOUT COMPLIC 06/03/2017 YELENA MAN MD Ot F02.81 DEMENTIA IN OTH DISEASES CLASSD ELSWHR W 06/03/2017 DONOVAN GONSALEZ, YELENA Oviedo Ot F31.9 BIPOLAR DISORDER, UNSPECIFIED 06/03/2017 YELENA [...] RESUSCITATE 06/03/2017 YELENA MAN MD Ot Z79.02 [facility] (CURRENT) USE OF ANTITHROMBOTI 06/03/2017 YELENA MAN MD Ot Z79.82 [facility] (CURRENT) USE OF ASPIRIN 06/03/2017 YELENA MAN MD Ot Z79.84 [facility] (CURRENT) USE OF ORAL HYPOGLYC 06/03/2017 YELENA MAN MD Ot Z87.891 PERSONAL HISTORY OF NICOTINE DEPENDENCE 06/03/2017 YELENA MAN MD Ot E03.9 HYPOTHYROIDISM, UNSPECIFIED 06/03/2017 DONOVAN GONSALEZ, YELENA Oviedo Ot E11.9 TYPE 2 DIABETES MELLITUS WITHOUT COMPLIC 06/03/2017 DONOVAN GONSALEZ, YELENA Oviedo Ot F02.81 DEMENTIA IN OTH DISEASES CLASSD ELSWHR W 06/03/2017 YELENA MAN MD Ot F31.9 BIPOLAR DISORDER, UNSPECIFIED 06/03/2017 YELENA MAN MD Ot F41.9 ANXIETY DISORDER, UNSPECIFIED 06/03/2017 DONOVAN [...] RESUSCITATE 06/03/2017 YELENA MAN MD Ot Z79.02 [facility] (CURRENT) USE OF ANTITHROMBOTI 06/03/2017 YELENA MAN MD Ot Z79.82 CAREER RESOURCE TECHNICIAN (CURRENT) USE OF ASPIRIN 06/03/2017 YELENA MAN MD Ot Z79.84 [facility] (CURRENT) USE OF ORAL HYPOGLYC 06/03/2017 YELENA [...] Ot 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 06/04/2017 YLEENA MAN MD Ot G25.81 RESTLESS LEGS SYNDROME [...] RESUSCITATE 06/04/2017 YELENA MAN MD Ot Z79.02 CAREER RESOURCE TECHNICIAN (CURRENT) USE OF ANTITHROMBOTI 06/04/2017 YELENA MAN MD Ot Z79.82 [facility] (CURRENT) USE OF ASPIRIN 06/04/2017 YELENA MAN MD Ot Z79.84 CAREER RESOURCE TECHNICIAN (CURRENT) USE OF ORAL HYPOGLYC 06/04/2017 YELENA [...] RESUSCITATE 06/05/2017 YELENA MAN MD Ot Z79.02 CAREER RESOURCE TECHNICIAN (CURRENT) USE OF ANTITHROMBOTI 06/05/2017 YELENA MAN MD Ot Z79.82 [facility] (CURRENT) USE OF ASPIRIN 06/05/2017 YELENA MAN MD Ot Z79.84 [facility] (CURRENT) USE OF ORAL HYPOGLYC 06/05/2017 YELENA MAN MD Ot Z87.891 PERSONAL HISTORY OF NICOTINE DEPENDENCE 06/05/2017 YELENA MAN MD Ot E03.9 HYPOTHYROIDISM, UNSPECIFIED 06/05/2017 YELENA MAN MD Ot E11.9 TYPE 2 DIABETES MELLITUS WITHOUT COMPLIC 06/05/2017 YELENA MAN MD Ot F02.81 DEMENTIA IN OTH DISEASES CLASSD ELSWHR W 06/05/2017 GAULT MD, YELENA R Ot F31.9 BIPOLAR DISORDER, UNSPECIFIED 06/05/2017 DONOVAN GONSALEZ, YELENA Oviedo Ot F41.9 ANXIETY DISORDER, UNSPECIFIED 06/05/2017 DONOVAN GONSALEZ, YELENA Oviedo Ot 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 06/05/2017 DONOVAN GONSALEZ, YELENA Oviedo Ot G25.81 RESTLESS LEGS SYNDROME 06/05/2017 DONOVAN GONSALEZ, YELENA Oviedo Ot G30.9 ALZHEIMER'S DISEASE, UNSPECIFIED 06/05/2017 DONOVAN GONSALEZ, YELENA Oviedo Ot G47.00 INSOMNIA, UNSPECIFIED 06/05/2017 DONOVAN GONSALEZ, YELENA R Ot I10 ESSENTIAL (PRIMARY) HYPERTENSION 06/05/2017 DONOVAN GONSALEZ, YELENA Oviedo Ot I48.91 UNSPECIFIED ATRIAL FIBRILLATION 06/05/2017 DONOVAN GONSALEZ, YELENA Oviedo Ot K21.9 GASTRO-ESOPHAGEAL REFLUX DISEASE WITHOUT 06/05/2017 DONOVAN GONSALEZ, YELENA Oviedo Ot R07.9 CHEST PAIN, UNSPECIFIED 06/05/2017 YELENA MAN MD Ot R42 DIZZINESS AND GIDDINESS 06/05/2017 DONOVAN GONSALEZ, YELENA Oviedo Ot R45.1 RESTLESSNESS AND AGITATION 06/05/2017 DONOVAN GONASLEZ, YELENA Oviedo Ot Z66 DO NOT RESUSCITATE 06/05/2017 YELENA MAN MD Ot Z79.02 CAREER RESOURCE TECHNICIAN (CURRENT) USE OF ANTITHROMBOTI 06/05/2017 YELENA MAN MD Ot Z79.82 [facility] (CURRENT) USE OF ASPIRIN 06/05/2017 YELENA MAN MD Ot Z79.84 CAREER RESOURCE TECHNICIAN (CURRENT) USE OF ORAL HYPOGLYC 06/05/2017 DONOVAN GONSALEZ, YELENA Oviedo Ot Z87.891 PERSONAL HISTORY OF NICOTINE DEPENDENCE 06/14/2017 BARRETT DO MCKINLEY K Ot 244.9 HYPOTHYROIDISM NOS 06/14/2017 BARRETT DO, MCKINLEY K Ot 250.00 DIAB THOMAS WO COMPL, TYPE II OR UNSPEC TY 06/14/2017 BARRETT DO MCKINLEY K Ot 294.20 DEMENTIA, UNSPECIFIED, WITHOUT BEHAVIORA 06/14/2017 BARRETT DO MCKINLEY K Ot 401.9 HYPERTENSION NOS 06/14/2017 BARRETT DO MCKINLEY K Ot 427.31 ATRIAL FIBRILLATION 06/14/2017 BARRETT CRUZ MCKINLEY K Ot 427.89 CARDIAC DYSRHYTHMIAS NEC 06/14/2017 BARRETT CRUZ MCKINLEY K Ot 530.81 ESOPHAGEAL REFLUX 06/14/2017 BARRETT DO, MCKINLEY K Ot 780.4 DIZZINESS [...] Ot E03.9 HYPOTHYROIDISM, UNSPECIFIED 06/12/2018 JESSICA PAINTING APRN Ot E11.9 TYPE 2 DIABETES MELLITUS WITHOUT COMPLIC 06/12/2018 JESSICA PAINTING APRN Ot F03.90 UNSPECIFIED DEMENTIA WITHOUT BEHAVIORAL 06/12/2018 JESSICA PAINTING APRN Ot F31.9 BIPOLAR DISORDER, UNSPECIFIED 06/12/2018 JESSICA PAINTING BEHAVIORAL HEALTH TECH Ot F41.9 ANXIETY DISORDER, UNSPECIFIED 06/12/2018 JESSICA PAINTING APRN Ot G25.81 RESTLESS LEGS SYNDROME 06/12/2018 JESSICA PAINTING APRN Ot G30.9 ALZHEIMER'S DISEASE, UNSPECIFIED 06/12/2018 JESSICA PAINTING BEHAVIORAL HEALTH TECH Ot G47.00 INSOMNIA, UNSPECIFIED 06/12/2018 JESSICA PAINTING APRN Ot I10 ESSENTIAL (PRIMARY) HYPERTENSION 06/12/2018 JESSICA PAINTING APRN Ot I48.91 UNSPECIFIED ATRIAL FIBRILLATION 06/12/2018 JESSICA PAINTING BEHAVIORAL HEALTH TECH Ot K21.9 GASTRO-ESOPHAGEAL REFLUX DISEASE WITHOUT 06/12/2018 JESSICA PAINTING APRN Ot M54.5 LOW BACK PAIN 06/12/2018 JESSICA PAINTING APRN Ot R10.9 UNSPECIFIED ABDOMINAL PAIN 06/12/2018 JESSICA PAINTING APRN Ot Z79.01 [facility] (CURRENT) USE OF 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 06/12/2018 JESSICA PAINTING APRN Ot Z79.02 [facility] (CURRENT) USE OF ANTITHROMBOTI 06/12/2018 JESSICA PAINTING [...] PAIN 06/14/2018 JESSICA PAINTING APRN Ot Z79.01 [facility] (CURRENT) USE OF 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 06/14/2018 JESSICA PAINTING APRN Ot Z79.02 CAREER RESOURCE TECHNICIAN (CURRENT) USE OF ANTITHROMBOTI 06/14/2018 JESSICA PAINTING APRN Ot Z87.19 PERSONAL HISTORY OF OTHER DISEASES OF TH 06/14/2018 JESSICA PAINTING APRN Ot Z87.448 PERSONAL HISTORY OF OTHER DISEASES OF UR 06/14/2018 JESSICA PAINTING BEHAVIORAL HEALTH TECH Ot Z87.891 PERSONAL HISTORY OF NICOTINE DEPENDENCE 06/14/2018 JESSICA PAINTING BEHAVIORAL HEALTH TECH Ot Z88.8 ALLERGY STATUS TO OTH DRUG/MEDS/BIOL SUB 06/14/2018 JESSICA PAINTING BEHAVIORAL HEALTH TECH Ot Z90.710 ACQUIRED ABSENCE OF BOTH CERVIX AND UTER 06/14/2018 JESSICA PAINTING BEHAVIORAL HEALTH TECH Ot Z90.89 ACQUIRED ABSENCE OF OTHER ORGANS 08/08/2018 SRAVANTHI TUCKER MD J Ot E03.9 HYPOTHYROIDISM, UNSPECIFIED 08/08/2018 SRAVANTHI TUCKER MD J Ot E11.9 TYPE 2 DIABETES MELLITUS WITHOUT COMPLIC 08/08/2018 SRAVANTHI TUCKER MD J Ot F03.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 08/08/2018 SRAVANTHI TUCKER MD J Ot F31.9 BIPOLAR DISORDER, UNSPECIFIED 08/08/2018 SRAVANTHI TUCKER MD J Ot F41.9 ANXIETY DISORDER, UNSPECIFIED 08/08/2018 MAYCOL TUCKER MDUS J Ot G25.81 RESTLESS LEGS SYNDROME 08/08/2018 MAYCOL TUCKER MDUS J Ot G30.9 ALZHEIMER'S DISEASE, UNSPECIFIED 08/08/2018 SRAVANTHI TUCKER MD Ot G47.00 INSOMNIA, UNSPECIFIED 08/08/2018 SRAVANTHI TUCKER MD Ot I10 ESSENTIAL (PRIMARY) HYPERTENSION 08/08/2018 MAYCOL TUCKER MDUS J Ot I48.91 UNSPECIFIED ATRIAL FIBRILLATION 08/08/2018 MAYCOL TUCKER MDUS J Ot K21.9 GASTRO-ESOPHAGEAL REFLUX DISEASE WITHOUT 08/08/2018 SRAVANTHI TUCKER MD J Ot M25.512 PAIN IN LEFT SHOULDER 08/08/2018 SRAVANTHI TUCKER MD J Ot M54.2 CERVICALGIA 08/08/2018 SRAVANTHI TUCKER MD Ot R07.9 CHEST PAIN, UNSPECIFIED 08/08/2018 SRAVANTHI TUCKER MD J Ot R40.2142 COMA SCALE, EYES OPEN, SPONTANEOUS, EMR 08/08/2018 SRAVANTHI TUCKER MD Ot R40.2252 COMA SCALE, BEST VERBAL RESPONSE, ORIENT 08/08/2018 SRAVANTHI TUCKER MD Ot R40.2362 COMA SCALE, BEST MOTOR RESPONSE, OBEYS C 08/08/2018 SRAVANTHI TUCKER MD, Ot S42.035A NONDISP FX OF LATERAL END OF LEFT CLAVIC 08/08/2018 SRAVANTHI TUCKER MD Ot W19.XXXA UNSPECIFIED FALL, INITIAL ENCOUNTER 08/08/2018 SRAVANTHI TUCKER MD, Ot W22.03XA WALKED INTO FURNITURE, INITIAL ENCOUNTER 08/08/2018 SRAAVNTHI TUCKER MD, Ot 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 08/08/2018 SRAVANTHI TUCKER MD Ot Z79.02 CAREER RESOURCE TECHNICIAN (CURRENT) USE OF ANTITHROMBOTI 08/08/2018 SRAVANTHI TUCKER MD, Ot Z87.19 PERSONAL HISTORY OF OTHER DISEASES OF TH 08/08/2018 SRAVANTHI TUCKER MD, Ot Z87.448 PERSONAL HISTORY OF OTHER DISEASES OF UR 08/08/2018 SRAVANTHI TUCKER MD, Ot Z87.891 PERSONAL HISTORY OF NICOTINE DEPENDENCE 08/08/2018 SRAVANTHI TUCKER MD, Ot Z88.6 ALLERGY STATUS TO ANALGESIC AGENT STATUS 08/08/2018 SRAVANTHI TUCKER MD, Ot Z88.8 ALLERGY STATUS TO OTH DRUG/MEDS/BIOL SUB 08/08/2018 SRAVANTHI TUCKER MD Ot Z90.710 ACQUIRED ABSENCE OF BOTH CERVIX AND UTER 08/08/2018 SRAVANTHI TUCKER MD Ot Z90.89 ACQUIRED ABSENCE OF OTHER ORGANS 08/08/2018 SRAVANTHI TUCKER MD Ot Z98.890 OTHER SPECIFIED POSTPROCEDURAL STATES 08/08/2018 WILLIAM MARQUEZ MD Ot E03.9 HYPOTHYROIDISM, UNSPECIFIED 08/08/2018 WILLIAM MARQUEZ MD Ot E11.9 TYPE 2 DIABETES MELLITUS WITHOUT COMPLIC 08/08/2018 WILLIAM MARQUEZ MD Ot F03.90 UNSPECIFIED DEMENTIA WITHOUT BEHAVIORAL 08/08/2018 WILLIAM MARQUEZ MD Ot F31.9 BIPOLAR DISORDER, UNSPECIFIED 08/08/2018 WILLIAM MARQUEZ MD, Ot F41.9 ANXIETY DISORDER, UNSPECIFIED 08/08/2018 WILLIAM MARQUEZ MD, Ot G20 PARKINSON'S DISEASE 08/08/2018 WILLIAM MARQUEZ MD, Ot G30.9 ALZHEIMER'S DISEASE, UNSPECIFIED 08/08/2018 WILLIAM MARQUEZ MD, Ot G47.00 INSOMNIA, UNSPECIFIED 08/08/2018 WILLIAM MARQUEZ MD, Ot I10 ESSENTIAL (PRIMARY) HYPERTENSION 08/08/2018 WILLIAM MARQUEZ MD Ot I48.91 UNSPECIFIED ATRIAL FIBRILLATION 08/08/2018 IWLLIAM MARQUEZ MD, Ot K21.9 GASTRO-ESOPHAGEAL REFLUX DISEASE WITHOUT 08/08/2018 WILLIAM MARQUEZ MD, Ot N28.9 DISORDER OF KIDNEY AND URETER, UNSPECIFI 08/08/2018 WILLIAM MARQUEZ MD, Ot N39.0 URINARY TRACT INFECTION, SITE NOT SPECIF 08/08/2018 WILLIAM MARQUEZ MD, Ot R22.0 LOCALIZED SWELLING, MASS AND LUMP, HEAD 08/08/2018 WILLIAM MARQUEZ MD, Ot R40.2142 COMA SCALE, EYES OPEN, SPONTANEOUS, EMR 08/08/2018 WILLIAM MARQUEZ MD, Ot R40.2252 COMA SCALE, BEST VERBAL RESPONSE, ORIENT 08/08/2018 WILLIAM MARQUEZ MD, Ot R40.2362 COMA SCALE, BEST MOTOR RESPONSE, OBEYS C 08/08/2018 WILLIAM MARQUEZ MD, Ot S00.03XA CONTUSION OF SCALP, INITIAL ENCOUNTER 08/08/2018 WILLIAM MARQUEZ MD, Ot S20.212A CONTUSION OF LEFT FRONT WALL OF THORAX, 08/08/2018 WILLIAM MARQUEZ MD, Ot S42.012A ANTERIOR DISP FX OF STERNAL END OF LEFT 08/08/2018 WILLIAM MARQUEZ MD Ot W19.XXXA UNSPECIFIED FALL, INITIAL ENCOUNTER 08/08/2018 WILLIAM MARQUEZ MD, Ot 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 08/08/2018 WILLIAM MARQUEZ MD, Ot Z79.02 CAREER RESOURCE TECHNICIAN (CURRENT) USE OF ANTITHROMBOTI 08/08/2018 WILLIAM MARQUEZ MD, Ot Z87.19 PERSONAL HISTORY OF OTHER DISEASES OF TH 08/08/2018 WILLIAM MARQUEZ MD, Ot Z87.448 PERSONAL HISTORY OF OTHER DISEASES OF UR 08/08/2018 WILLIAM MARQUEZ MD, Ot Z87.891 PERSONAL HISTORY OF NICOTINE DEPENDENCE 08/08/2018 WILLIAM MARQUEZ MD, Ot Z88.6 ALLERGY STATUS TO ANALGESIC AGENT STATUS 08/08/2018 WILLIAM MARQUEZ MD, Ot Z88.8 ALLERGY STATUS TO OTH DRUG/MEDS/BIOL SUB 08/08/2018 WILLIAM MARQUEZ MD Ot Z90.710 ACQUIRED ABSENCE OF BOTH CERVIX AND UTER 08/08/2018 WILLIAM MARQUEZ MD Ot Z90.89 ACQUIRED ABSENCE OF OTHER ORGANS 08/10/2018 WILLIAM MARQUEZ MD, Ot E03.9 HYPOTHYROIDISM, UNSPECIFIED 08/10/2018 WILLIAM MARQUEZ MD Ot E11.9 TYPE 2 DIABETES MELLITUS WITHOUT COMPLIC 08/10/2018 WILLIAM MARQUEZ MD, Ot F03.90 UNSPECIFIED DEMENTIA WITHOUT BEHAVIORAL 08/10/2018 WILLIAM MARQUEZ MD Ot F31.9 BIPOLAR DISORDER, UNSPECIFIED 08/10/2018 WILLIAM MARQUEZ MD, Ot F41.9 ANXIETY DISORDER, UNSPECIFIED 08/10/2018 WILLIAM MARQUEZ MD, Ot G20 PARKINSON'S DISEASE 08/10/2018 WILLIAM MARQUEZ MD, Ot G30.9 ALZHEIMER'S DISEASE, UNSPECIFIED 08/10/2018 WILLIAM MARQUEZ MD, Ot G47.00 INSOMNIA, UNSPECIFIED 08/10/2018 WILLIAM MARQUEZ MD Ot I10 ESSENTIAL (PRIMARY) HYPERTENSION 08/10/2018 WILLIAM MARQUEZ MD Ot I48.91 UNSPECIFIED ATRIAL FIBRILLATION 08/10/2018 WILLIAM MARQUEZ MD, Ot K21.9 GASTRO-ESOPHAGEAL REFLUX DISEASE WITHOUT 08/10/2018 WILLIAM MARQUEZ MD Ot N28.9 DISORDER OF KIDNEY AND URETER, UNSPECIFI 08/10/2018 WILLIAM MARQUEZ MD Ot N39.0 URINARY TRACT INFECTION, SITE NOT SPECIF 08/10/2018 WILLIAM MARQUEZ MD Ot R22.0 LOCALIZED SWELLING, MASS AND LUMP, HEAD 08/10/2018 WILLIAM MARQUEZ MD Ot R40.2142 COMA SCALE, EYES OPEN, SPONTANEOUS, EMR 08/10/2018 WILLIAM MARQUEZ MD, Ot R40.2252 COMA SCALE, BEST VERBAL RESPONSE, ORIENT 08/10/2018 WILLIAM MARQUEZ MD, Ot R40.2362 COMA SCALE, BEST MOTOR RESPONSE, OBEYS C 08/10/2018 WILLIAM MARQUEZ MD, Ot S00.03XA CONTUSION OF SCALP, INITIAL ENCOUNTER 08/10/2018 WILLIAM MARQUEZ MD, Ot S20.212A CONTUSION OF LEFT FRONT WALL OF THORAX, 08/10/2018 WILLIAM MARQUEZ MD, Ot S42.012A ANTERIOR DISP FX OF STERNAL END OF LEFT 08/10/2018 WILLIAM MARQUEZ MD, Ot W19.XXXA UNSPECIFIED FALL, INITIAL ENCOUNTER 08/10/2018 WILLIAM MARQUEZ MD, Ot 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 08/10/2018 WILLIAM MARQUEZ MD, Ot Z79.02 CAREER RESOURCE TECHNICIAN (CURRENT) USE OF ANTITHROMBOTI 08/10/2018 WILLIAM MARQUEZ MD, Ot Z87.19 PERSONAL HISTORY OF OTHER DISEASES OF TH 08/10/2018 WILLIAM MARQUEZ MD, Ot Z87.448 PERSONAL HISTORY OF OTHER DISEASES OF UR 08/10/2018 WILLIAM MARQUEZ MD, Ot Z87.891 PERSONAL HISTORY OF NICOTINE DEPENDENCE 08/10/2018 WILLIAM MARQUEZ MD, Ot Z88.6 ALLERGY STATUS TO ANALGESIC AGENT STATUS 08/10/2018 WILLIAM MARQUEZ MD, Ot Z88.8 ALLERGY STATUS TO OTH DRUG/MEDS/BIOL SUB 08/10/2018 WILLIAM MARQUEZ MD, Ot Z90.710 ACQUIRED ABSENCE OF BOTH CERVIX AND UTER 08/10/2018 WILLIAM MARQUEZ MD, Ot Z90.89 ACQUIRED ABSENCE OF OTHER ORGANS Procedures There is no data. Results Test Result Range Influenza virus A and B antigen detection - 12/18/16 22:30 FLU RESULT NEGATIVE FOR INFLUENZA A AND B ANTIGENS BY [facility] Complete blood count (CBC) with automated white [...] with reflex to culture NO NRG Complete urinalysis with reflex to culture - 08/08/18 20:35 Urine color determination YELLOW NRG Urine clarity [...] detection in urine sediment by light microscopy 5-10 NRG Crystals detection in urine sediment by light microscopy NONE NRG Casts detection in urine sediment by light microscopy NONE NRG Mucus detection in urine sediment by light microscopy NEGATIVE NRG Complete urinalysis with reflex to culture YES NRG Bacterial urine culture - 08/08/18 20:35 Bacterial urine culture NG [facility] Automated blood complete blood count (hemogram) panel - 08/08/18 21:35 Blood leukocytes automated count (number/volume) 8.9 10*3/uL 4.3-11.0 Blood erythrocytes automated count (number/volume) 4.39 10*6/uL 4.35-5.85 Venous blood hemoglobin measurement (mass/volume) 12.4 g/dL 11.5-16.0 Blood hematocrit (volume fraction) 37 % 35-52 Automated erythrocyte mean corpuscular volume 85 [foz_us] 80-99 Automated erythrocyte mean corpuscular hemoglobin (mass per erythrocyte) 28 pg 25-34 Automated erythrocyte mean corpuscular hemoglobin concentration measurement ( mass/volume) 33 g/dL 32-36 Automated erythrocyte distribution width ratio 13.5 % 10.0-14.5 Automated blood platelet count (count/volume) 208 10*3/uL 130-400 Automated blood platelet mean volume measurement 9.8 [foz_us] 7.4-10.4 Comprehensive metabolic panel - 08/08/18 21:35 Serum or plasma sodium measurement (moles/volume) 141 mmol/L 135-145 Serum or plasma potassium measurement (moles/volume) 4.5 mmol/L 3.6-5.0 Serum or plasma chloride measurement (moles/volume) 109 mmol/L 98-107 Carbon dioxide 19 mmol/L 21-32 Serum or plasma anion gap determination (moles/volume) 13 mmol/L 5-14 Serum or plasma urea nitrogen measurement (mass/volume) 24 mg/dL 7-18 Serum or plasma creatinine measurement (mass/volume) 1.31 mg/dL 0.60-1.30 Serum or plasma urea nitrogen/creatinine mass ratio 18 NRG Serum or plasma creatinine measurement with calculation of estimated glomerular filtration rate 39 NRG Serum or plasma glucose measurement (mass/volume) 137 mg/dL 70-105 Serum or plasma calcium measurement (mass/volume) 9.6 mg/dL 8.5-10.1 Serum or plasma total bilirubin measurement (mass/volume) 0.6 mg/dL 0.1-1.0 Serum or plasma alkaline phosphatase measurement (enzymatic activity/volume) 125 U/L 40-136 Serum or plasma aspartate aminotransferase measurement (enzymatic activity/ volume) 16 U/L 5-34 Serum or plasma alanine aminotransferase measurement (enzymatic activity/volume ) 14 U/L 0-55 Serum or plasma protein measurement (mass/volume) 7.6 g/dL 6.4-8.2 Serum or plasma albumin measurement (mass/volume) 4.5 g/dL 3.2-4.5 CALCIUM CORRECTED 9.2 mg/dL 8.5-10.1 Magnesium - 08/08/18 21:35 Magnesium 2.4 mg/dL 1.8-2.4 Serum or plasma troponin i.cardiac measurement (mass/volume) - 08/08/18 21:35 Serum or plasma troponin i.cardiac measurement (mass/volume) < ng/ mL <0.30 THYROID STIMULATING HORMONE - 08/08/18 21:35 THYROID STIMULATING HORMONE 3.97 u[iU]/mL 0.35-4.94 Serum or plasma thyroxine (T4) free measurement (mass/volume) - 08/08/18 21:35 Serum or plasma thyroxine (T4) free measurement (mass/volume) 1.09 ng/dL 0.70-1.48 Encounters ACCT No. Visit Date/Time Discharge Status Pt. Type Provider Facility Loc./Unit Complaint [id number] 01/15/2015 10:26:00 01/15/2015 23:59:59 [facility] Outpatient BEVERLY BALLESTEROS APRN [id number] 08/28/2014 07:40:00 08/28/2014 23:59:59 [facility] Outpatient BEVERLY BALLESTEROS APRN [id number] 07/03/2014 11:57:00 07/03/2014 23:59:59 CLS Outpatient BEVERLY BALLESTEROS APRN [id number] 06/24/2014 13:19:00 06/24/2014 23:59:59 CLS Outpatient VERONICA SPRINGER MD [id number] 06/19/2014 11:08:00 06/19/2014 23:59:59 CLS Outpatient BEVERLY BALLESTEROS APRN [id number] 05/15/2014 12:02:00 05/15/2014 23:59:59 CLS Outpatient BEVERLY BALLESTEROS APRN [id number] 05/01/2014 07:52:00 05/01/2014 23:59:59 CLS Outpatient BEVERLY BALLESTEROS APRN [id number] 04/10/2014 12:54:00 04/10/2014 23:59:59 CLS Outpatient RACHEAL GONSALEZ, VERONICA [id number] 08/08/2018 18:07:00 08/08/2018 23:02:00 DIS Emergency JIMMY GONSALEZ, WILLIAM Osborne [facility] ER BUMP ON HEAD [id number] 08/06/2018 20:40:00 08/07/2018 00:05:00 DIS Outpatient SRAVANTHI TUCKER MD [facility] ER FALL [id number] 06/12/2018 11:33:00 06/12/2018 14:53:00 DIS Emergency JESSICA PAINTING BEHAVIORAL HEALTH TECH [facility] ER CANNOT URINATE,POSS KID STONES [id number] 06/01/2017 17:45:00 06/05/2017 12:47:00 DIS Inpatient DONOVAN GONSALEZ, YELENA Oviedo [facility] ICU ATRIAL FIB W RVR,CHEST PAIN [id number] 02/22/2017 17:13:00 02/22/2017 18:42:00 DIS Emergency JESSICA PAINTING BEHAVIORAL HEALTH TECH [facility] ER CP/SOA [id number] 12/18/2016 23:19:00 12/18/2016 23:59:59 CLS Outpatient VERONICA SPRINGER MD [facility] MLF J09 [id number] 05/03/2016 13:12:00 05/03/2016 23:59:59 CLS Outpatient MELCHOR RAMOS MD [facility] RAD RENAL CYST [id number] 04/19/2016 13:09:00 04/19/2016 23:59:59 CLS Outpatient MELCHOR RAMOS MD [facility] RAD BILAT FLANK AND BACK PAIN [id number] 11/20/2015 14:02:00 11/20/2015 17:20:00 DIS Emergency SHON FRANKLIN MD [facility] ER FALL/CONFUSION [id number] 11/18/2015 19:25:00 11/18/2015 21:37:00 DIS Emergency MCKINLEY HYDE DO [facility] ER MULT COMPLAINTS [id number] 08/08/2015 13:31:00 08/08/2015 17:36:00 DIS Emergency NINA GONSALEZ, WALTER Gilbert [facility] ER DIZZY/CONFUSED [id number] 08/03/2015 13:31:00 08/04/2015 10:40:00 DIS Inpatient RACHEAL GONSALEZ, VERONICA Styles [facility] CSD AMS,RENAL INSUFFICIENCY [id number] 08/02/2015 01:35:00 08/02/2015 03:30:00 DIS Emergency BARRETT DO, MCKINLEY K [facility] ER HIGH BLOOD PRESSURE [id number] 07/29/2013 11:34:00 07/29/2013 15:29:00 DIS Emergency BARRETT DO, MCKINLEY K [facility] ER HIGH BLOOD PRESSURE AND HIGH BLOOD SUGAR [id number] 03/28/2013 07:25:00 03/28/2013 23:59:59 CLS Outpatient CHANDLER GONSALEZ, CAMDEN Goldsmith [facility] PREOP DIARRHEA; HISTORY OF POLYPS [id number] 08/08/2015 13:31:00 Document Registration [id number] 08/08/2015 13:31:00 Document Registration [id number] 08/08/2015 13:31:00 Document Registration [id number] 08/08/2015 13:31:00 Document Registration [id number] 11/18/2010 10:06:00 Document Registration [id number] 03/12/2010 13:34:00 Document Registration [id number] 01/26/2019 10:45:00 01/26/2019 23:59:59 CLS Outpatient BEVERLY BALLESTEROS [facility]NT [id number] 08/08/2015 13:32:00 ACT Document Registration
[2019-03-27] MEDS ORDERED: DILTIAZEM IV FOR DRIP 125 MG in NS (IVPB) 100 ML IV SCH (15:45)
[2019-03-27] MEDS ORDERED: DILTIAZEM 25 MG/5 ML INJ (CARDIZEM) VIAL IVP ONE (15:45)
[2019-03-27 15:52] LABS: BASOPHILS % (AUTO) 0 % (0-10); EOSINOPHILS # (AUTO) 0.1 10^3/uL (0.0-0.3); EOSINOPHILS % (AUTO) 2 % (0-10); HEMATOCRIT 42 % (35-52); HEMOGLOBIN 14.2 G/DL (11.5-16.0); LYMPHOCYTES # (AUTO) 1.1 X 10^3 (1.0-4.0); LYMPHOCYTES % (AUTO) 19 % (12-44); MEAN CORPUSCULAR HEMOGLOBIN 28 PG (25-34); MEAN CORPUSCULAR HGB CONC 34 G/DL (32-36); MEAN CORPUSCULAR VOLUME 84 FL (80-99); MONOCYTES # (AUTO) 0.5 X 10^3 (0.0-1.0); MONOCYTES % (AUTO) 8 % (0-12); NEUTROPHILS # (AUTO) 4.3 X 10^3 (1.8-7.8); NEUTROPHILS % (AUTO) 72 % (42-75); PLATELET COUNT 191 10^3/uL (130-400); RED CELL DISTRIBUTION WIDTH 13.1 % (10.0-14.5)
--- NOTE | 2019-03-27 15:55 | NUR ---
SEE LIST FROM [place] FOR CURRENT MEDS
--- NOTE | 2019-03-27 16:02 | Diagnostic Imaging Report ---
INDICATION: Bladder problems. TIME OF EXAM: 03:48 p.m. COMPARISON: Comparison is made with prior chest from 08/06/2018. FINDINGS: The heart appears enlarged on this portable view. No infiltrate or failure is detected. The pulmonary vascularity is normal. No effusion or pneumothorax is seen. IMPRESSION: No acute cardiopulmonary process is detected. Dictated by: Dictated on workstation # [id number]
[2019-03-27 16:09] LABS: ALANINE AMINOTRANSFERASE 10 U/L (0-55); ALBUMIN 4.5 GM/DL (3.2-4.5); ALKALINE PHOSPHATASE 144 U/L (40-136); BILIRUBIN,TOTAL 0.3 MG/DL (0.1-1.0); BUN/CREATININE RATIO 28; CALCIUM 9.6 MG/DL (8.5-10.1); CARBON DIOXIDE 25 MMOL/L (21-32); CHLORIDE 105 MMOL/L (98-107); CREATININE SERUM 1.03 MG/DL (0.60-1.30); GFR ESTIMATED 51; GLUCOSE 195 MG/DL (70-105); MAGNESIUM 2.1 MG/DL (1.8-2.4); POTASSIUM 3.7 MMOL/L (3.6-5.0); SODIUM 141 MMOL/L (135-145); TOTAL PROTEIN 7.9 GM/DL (6.4-8.2)
--- NOTE | 2019-03-27 16:11 | ED Cardiac General ---
History of Present Illness General Chief Complaint: Cardiac/General Problems Stated Complaint: CHEST PAIN Nursing Triage Note: PT ARRIVED PER EMS PT HR 140'S, A-FLUTTER, PT FROM [place]. PT DENIES CHEST PAIN AT THIS X. PT WAS GIVEN ADENOSINE 6 AND ADENOSINE 12MG IV BY EMS W NO CHANGE IN RATE. PT HAS PULLED IV OUT UPON ARRIVAL, PT HAS SOME DEMENTIA. Source: patient Exam Limitations: physical impairment (dementia) History of Present Illness Date Seen by Provider: March 27, 2019 Time Seen by Provider: 15:19 Initial Comments Here by EMS from intermediate. Patient is a pleasantly demented female with report of rapid heart rate. She was found to be atrial fibrillation/flutter with rapid ventricular response. EMS did give adenosine 12 mg IV with no change. Brought here. Patient denies pain but is a very poor historian. Does admit to palpitations. Timing/Duration: 1 hour Severity: moderate Location: central (palpitations) Activities at Onset: none Prior CP/Workup: echocardiography NTG SL PHARMACY TEACHER: No ASA po PHARMACY TEACHER: Yes Associated Systoms: No Chest Pain, No Diaphoresis, No Fever/Chills, No Shortness of Air; Weakness Allergies and Home Medications Allergies Coded Allergies: amitriptyline (Unverified Adverse Reaction, Mild, PSYCH-HYPERACTIVE, 08/27) diazepam (Verified Adverse Reaction, Unknown, 08/02/15) haloperidol (Verified Adverse Reaction, Unknown, 08/02/15) lorazepam (Verified Adverse Reaction, Unknown, 08/02/15) Home Medications Acetaminophen 325 Mg Tablet, 650 MG PO Q4H PRN for PAIN-MILD, (Reported) TAKES 2 (325MG) TABLETS Amlodipine Besylate 10 Mg Tablet, 10 MG PO DAILY, (Reported) Carbidopa/Levodopa 1 Each Tablet, 1 TAB PO BID, (Reported) Cephalexin 500 Mg Capsule, 500 MG PO TID Prescribed by: WILLIAM JULIEN on 08/08/18 2252 Cetirizine HCl 10 Mg Tablet, 10 MG PO DAILY, (Reported) Clopidogrel Bisulfate 75 Mg Tablet, 75 MG PO DAILY, (Reported) Dextromethorphan HBr 15 Mg/5 Ml Liquid, 10 ML PO Q6H PRN for COUGH, (Reported) Diltiazem HCl 240 Mg Cap.er.24h, 240 MG PO DAILY Prescribed by: DONNA LOREDO on 06/05/17 1228 Famotidine 20 Mg Tablet, 20 MG PO BID, (Reported) Furosemide 40 Mg Tablet, 40 MG PO DAILY, (Reported) Gabapentin 100 Mg Capsule, 100 MG PO DAILY, (Reported) Gabapentin 100 Mg Capsule, 200 MG PO HS, (Reported) TAKES 2 (100MG) CAPSULES Lactobacillus Acidophilus 1 Each Capsule, 1 CAP PO DAILY, (Reported) Levothyroxine Sodium 125 Mcg Tablet, 125 MCG PO DAILY, (Reported) Loperamide HCl 2 Mg Tablet, 2 MG PO UD PRN for DIARRHEA, (Reported) Losartan Potassium 100 Mg Tablet, 100 MG PO DAILY, (Reported) Magnesium Oxide 500 Mg Capsule, 500 MG PO 0800,1200,1700, (Reported) Melatonin 3 Mg Tablet, 9 MG PO HS, (Reported) TAKES 3 (3MG) TABLETS Metoprolol Succinate 50 Mg Tab.er.24h, 50 MG PO DAILY Prescribed by: DONNA LOREDO on 06/05/17 1228 Oxcarbazepine 300 Mg Tablet, 300 MG PO HS, (Reported) Potassium Chloride 20 Meq Tab.er.prt, 20 MEQ PO TID, (Reported) Rivaroxaban 10 Mg Tablet, 10 MG PO HS Prescribed by: DONNA LOREDO on 06/05/17 1228 Rivastigmine Tartrate 6 Mg Capsule, 6 MG PO BID, (Reported) Ropinirole HCl 1 Mg Tablet, 1 MG PO BID, (Reported) Sennosides 8.6 Mg Tablet, 8.6 MG PO DAILY PRN for CONSTIPATION-5TH LINE, ( Reported) Sertraline HCl 100 Mg Tablet, 100 MG PO DAILY, (Reported) Tramadol HCl 50 Mg Tablet, 50 MG PO Q6H PRN for PAIN-MODERATE TO SEVERE Prescribed by: JESSICA PAINTING on 06/12/18 1355 Tramadol HCl 50 Mg Tablet, 50 MG PO Q8H PRN for BREAKTHROUGH PAIN Prescribed by: SRAVANTHI TUCKER on 08/06/18 2333 Trazodone HCl 50 Mg Tablet, 50 MG PO HS, (Reported) Vit A/C/E AC/Znox/Cupric Oxide 1 Each Tablet, 1 TAB PO DAILY, (Reported) Patient Home Medication List Home Medication List Reviewed: Yes Review of Systems Review of Systems Constitutional: see HPI EENTM: No Symptoms Reported Respiratory: Denies Cough, Denies Shortness of Air Cardiovascular: See HPI, Irregular Heart Rate, Palpitations Gastrointestinal: Denies Abdominal Pain, Denies Nausea, Denies Vomiting Genitourinary: Denies Flank Pain; Pain Musculoskeletal: no symptoms reported Skin: no symptoms reported Psychiatric/Neurological: No Symptoms Reported All Other Systems Reviewed Negative Unless Noted: Yes Past Zxicoec-Iepkbw-Hjbtuw Hx Past Med/Social Hx: Reviewed Nursing Past Med/Soc Hx Patient Social History Alcohol Use: Denies Use Recreational Drug Use: No Smoking Status: Former Smoker Type Used: Cigarettes Former Smoker, Quit: Jun 01, 1952 2nd Hand Smoke Exposure: No Recent Foreign Travel: No Contact w/Someone Who Travel: No Recent Infectious Disease Expo: No Recent Hopitalizations: No Physical Abuse: No Sexual Abuse: No Immunizations Up To Date Tetanus Booster (TDap): Unknown PED Vaccines UTD: No Date of Pneumonia Vaccine: Aug 03, 2013 Seasonal Allergies Seasonal Allergies: Yes Past Medical History Surgeries: Yes (CYSTOCELE/RECTOCELE) Appendectomy, Cardiac, Gallbladder, 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 Respiratory: No Cardiac: Yes (HEART CATH--NO INTERVENTIONS, BENIGN) Atrial Fibrillation, Chronic Edema/Swelling, Hypertension Neurological: Yes (RESTLESS LEG SYNDROME, DRUG-INDUCED DYSKINESIA) Dementia, Parkinson's Disease 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 Disorders: 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 History: 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, Menopausal Genitourinary: Yes (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) Bladder Infection Gastrointestinal: Yes Gastroesophageal Reflux, Chronic Constipation, Chronic Diarrhea Musculoskeletal: Yes (RESTLESS LEG SYNDROME, GENERALIZED PAIN) Endocrine: Yes Hypothyroidsim, Diabetes, Non-Insulin dep HEENT: Yes Hearing Impairment: Hard of Hearing Cancer: No Psychosocial: Yes (ALZHEIMERS, AGITATION, INSOMNIA) Sleep Difficulties, Anxiety, Bipolar, Depression Integumentary: No Blood Disorders: No Family Medical History Reviewed Nursing Family Hx No Pertinent Family Hx Physical Exam Vital Signs Vital Signs - First Documented 03/27/19 15:05 Temp 97.9 Pulse 145 Resp 18 B/P (MAP) 154/108 (123) Pulse Ox 98 O2 Delivery Room Air Capillary Refill : Less Than 3 Seconds Height, Weight, BMI Height: 5'7.00" Weight: 170lbs. 9.6oz. 77.551180fy; 25.5 BMI Method:Estimated General Appearance: WD/WN, Mild Distress HEENT: PERRL/EOMI, Pharynx Normal Neck: Non Tender, Supple Respiratory: Lungs Clear, Normal Breath Sounds Cardiovascular: Irregularly Irregular, Tachycardia Gastrointestinal: Non Tender, Soft Extremity: Normal Range of Motion, Non Tender Neurologic/Psychiatric: Alert, Other (oriented to self but is confused on place and time and situation.) Skin: Normal Color, Warm/Dry Progress/Results/Core Measures Results/Orders Lab Results Laboratory Tests Test 03/27/19 15:35 Range/Units White Blood Count 6.0 4.3-11.0 10^3/uL Red Blood Count 5.02 4.35-5.85 10^6/uL Hemoglobin 14.2 11.5-16.0 G/DL Hematocrit 42 35-52 % Mean Corpuscular Volume 84 80-99 FL Mean Corpuscular Hemoglobin 28 25-34 PG Mean Corpuscular Hemoglobin Concent 34 32-36 G/DL Red Cell Distribution Width 13.1 10.0-14.5 % Platelet Count 191 130-400 10^3/uL Mean Platelet Volume 10.0 7.4-10.4 FL Neutrophils (%) (Auto) 72 42-75 % Lymphocytes (%) (Auto) 19 12-44 % Monocytes (%) (Auto) 8 0-12 % Eosinophils (%) (Auto) 2 0-10 % Basophils (%) (Auto) 0 0-10 % Neutrophils # (Auto) 4.3 1.8-7.8 X 10^3 Lymphocytes # (Auto) 1.1 1.0-4.0 X 10^3 Monocytes # (Auto) 0.5 0.0-1.0 X 10^3 Eosinophils # (Auto) 0.1 0.0-0.3 10^3/uL Basophils # (Auto) 0.0 0.0-0.1 10^3/uL Prothrombin Time 12.9 12.2-14.7 SEC INR Comment 0.9 0.8-1.4 Activated Partial Thromboplast Time 26 24-35 SEC Sodium Level 141 135-145 MMOL/L Potassium Level 3.7 3.6-5.0 MMOL/L Chloride Level 105 98-107 MMOL/L Carbon Dioxide Level 25 21-32 MMOL/L Anion Gap 11 5-14 MMOL/L Blood Urea Nitrogen 29 H 7-18 MG/DL Creatinine 1.03 0.60-1.30 MG/DL Estimat Glomerular Filtration Rate 51 BUN/Creatinine Ratio 28 Glucose Level 195 H 70-105 MG/DL Calcium Level 9.6 8.5-10.1 MG/DL Corrected Calcium 9.2 8.5-10.1 MG/DL Magnesium Level 2.1 1.8-2.4 MG/DL Total Bilirubin 0.3 0.1-1.0 MG/DL Aspartate Amino Transf (AST/SGOT) 13 5-34 U/L Alanine Aminotransferase (ALT/SGPT) 10 0-55 U/L Alkaline Phosphatase 144 H 40-136 U/L Myoglobin 42.5 10.0-92.0 NG/ML Troponin I < 0.028 <0.028 NG/ML Total Protein 7.9 6.4-8.2 GM/DL Albumin 4.5 3.2-4.5 GM/DL My Orders Orders - WALTER WOOD MD Adenosine Injection (Adenocard Injection (03/27/19 15:12) Diltiazem Injection (Cardizem Injection) (03/27/19 15:18) Enoxaparin Injection (Lovenox Injection) (03/27/19 18:00) Medications Given in ED Current Medications Medications Dose Ordered Sig/Jovani Route Start Time Stop Time Status Last Admin Dose Admin Diltiazem HCl 10 mg ONCE ONCE IVP 03/27/19 15:45 03/27/19 15:46 DC 03/27/19 15:25 10 MG Vital Signs/I&O 03/27/19 03/27/19 15:05 16:01 Temp 97.9 Pulse 145 111 Resp 18 18 B/P (MAP) 154/108 (123) 123/86 Pulse Ox 98 99 O2 Delivery Room Air Blood Pressure Mean: 98 Progress Progress Note : Progress Note Seen and evaluated. IV, labs, EKG and chest x-ray ordered. Cardizem 10 mg IV bolus followed by Cardizem drip. Normal saline 1 L bolus initiated by EMS will be continued. Monitor patient. 1722: Discussed the case with Dr. Triplett who is recommending continuing Cardizem drip. He will see the patient in consult. Anticoagulation was discussed. Patient not currently on anticoagulation and I'm unsure if this is related to falls or underlying disease as she was previously on Xarelto. 1735: I did discuss the case with Dr. Sifuentes. She accepts patient for admission. We did discuss anticoagulation. We will give 1 dose of Lovenox now and she will reevaluate with cardiology tomorrow morning for further anticoagulation consideration. However, inpatient status. Patient and family agree with plan Initial ECG Impression Date: March 27, 2019 Initial ECG Impression Time: 15:19 Initial ECG Rate: 143 Initial ECG Rhythm: A Fib/Flutter Initial ECG Impression: Atrial Fibrillation w/RVR Comment Atrial fibrillation with rapid ventricular response, LVH and left axis deviation noted. No evidence of ST elevation [place]. Interpreted by me. EKG : EKG Time: 17:43 Rate: 84 Rhythm: Normal Sinus Comment Sinus rhythm with first degree block. Left ventricular hypertrophy. Left axis deviation. changed from A. fib RVR earlier. Interpreted by me. Diagnostic Imaging Diagonstic Imaging: Xray Plain Films/CT/US/NM/MRI: chest Comments [facility] [place] NAME: ROSENDA MENDEZ [facility] REC#: [id number] PT STATUS: REG ER : 1935 PHYSICIAN: JESSICA PAINTING APRN ADMIT DATE: 03/27/19/ER Draft Date of Exam:03/27/19 CHEST 1 VIEW, AP/PA ONLY INDICATION: Bladder problems. TIME OF EXAM: 03:48 p.m. COMPARISON: Comparison is made with prior chest from 08/06/2018. FINDINGS: The heart appears enlarged on this portable view. No infiltrate or failure is detected. The pulmonary vascularity is normal. No effusion or pneumothorax is seen. IMPRESSION: No acute cardiopulmonary process is detected. Dictated on workstation # [id number] Dict: 03/27/19 1558 Trans: 03/27/19 1602 [facility] [id number] Interpreted by: HELEN PHELPS MD Electronically signed by: Reviewed: Reviewed by Me Departure Communication (Admissions) Time/Spoke to Admitting Phy: 17:39 Time/Spoke to Consulting Phy: 17:22 Impression Primary Impression: Atrial fibrillation with rapid ventricular response Disposition: ADMITTED INPATIENT Condition: Stable Admissions Decision to Admit Reason: Admit from ER (General) Decision to Admit/Date: March 27, 2019 Time/Decision to Admit Time: 17:22 Departure-Patient Inst. Referrals: VERONICA SPRINGER MD (PCP/Family) Primary Care Physician WALTER WOOD MD March 27, 2019 16:11
[2019-03-27 16:26] LABS: INR 0.9 (0.8-1.4); PROTHROMBIN TIME PATIENT 12.9 SEC (12.2-14.7)
[2019-03-27] MEDS ORDERED: ENOXAPARIN 80 MG/0.8 ML (LOVENOX) SYR SC ONE (18:00)
--- NOTE | 2019-03-27 18:18 | NUR ---
ROMERO CATH DC'D PT CO OF TOO MUCH BURNING 2300CC CL URINE. PT GETTING IRRIATED PT IN W/C IV CONT, PT CONT ON MONITOR
[2019-03-27 18:28] LABS: BILIRUBIN,URINE NEGATIVE (NEGATIVE); GLUCOSE, URINE (UA) NEGATIVE (NEGATIVE); KETONES,URINE NEGATIVE (NEGATIVE); LEUKOCYTE ESTERASE ,URINE NEGATIVE (NEGATIVE); NITRITE,URINE NEGATIVE (NEGATIVE); PH,URINE 6.5 (5-9); PROTEIN,URINE NEGATIVE (NEGATIVE); UROBILINOGEN,URINE NORMAL (NORMAL)
[2019-03-27 18:29] LABS: BACTERIA,URINE NEGATIVE /HPF; CLARITY,URINE CLEAR; COLOR,URINE STRAW; RBC,URINE RARE /HPF
[2019-03-27] MEDS ORDERED: CATHETER FLUSH 10 ML SYR IV PRN (19:30)
--- NOTE | 2019-03-27 19:30 | NUR ---
ROSENDA MENDEZ admitted to room CU6-1, with an admitting diagnosis of AFIB , on 03/27/19 from ED via , accompanied by .ROSENDA MENDEZ introduced to surroundings, call light, bed controls, phone, TV, temperature control, lights, meal times, smoking policy, visitor policy, side rail policy, bathrooms and showers. Patient Rights given to patient in the handbook.ROSENDA MENDEZ verbalizes understanding that [facility] is not responsible for the loss or damage to any personal effects or valuables that are kept in the patients posession during their hospitalization. The following Patient Care Plans were discussed with the : Discharge Planning, ,, and . ROSENDA MENDEZ verbalizes understanding of Interdisciplinary Patient Education. Patient and/or family were informed about the Rapid Response Team and its purpose.
[2019-03-27] MEDS: DILTIAZEM 125 MG/NS 100 ML IV SCH ×2 (19:44)
[2019-03-27] MEDS: NS IV 1000 ML 1,000 ML IV SCH (21:28)
[2019-03-28] VITALS (15 sets, daily range): BP systolic 97–160; BP diastolic 59–116
[2019-03-28 04:13] LABS: BASOPHILS % (AUTO) 0 % (0-10); EOSINOPHILS # (AUTO) 0.1 10^3/uL (0.0-0.3); EOSINOPHILS % (AUTO) 2 % (0-10); HEMATOCRIT 39 % (35-52); HEMOGLOBIN 13.2 G/DL (11.5-16.0); LYMPHOCYTES # (AUTO) 1.2 X 10^3 (1.0-4.0); LYMPHOCYTES % (AUTO) 16 % (12-44); MEAN CORPUSCULAR HEMOGLOBIN 28 PG (25-34); MEAN CORPUSCULAR HGB CONC 34 G/DL (32-36); MEAN CORPUSCULAR VOLUME 83 FL (80-99); MEAN PLATELET VOLUME 10.2 FL (7.4-10.4); MONOCYTES # (AUTO) 0.6 X 10^3 (0.0-1.0); MONOCYTES % (AUTO) 8 % (0-12); NEUTROPHILS # (AUTO) 5.7 X 10^3 (1.8-7.8); NEUTROPHILS % (AUTO) 74 % (42-75); PLATELET COUNT 198 10^3/uL (130-400); RED CELL DISTRIBUTION WIDTH 13.1 % (10.0-14.5); WHITE BLOOD COUNT 7.7 10^3/uL (4.3-11.0)
[2019-03-28 04:39] LABS: ALANINE AMINOTRANSFERASE 13 U/L (0-55); ALKALINE PHOSPHATASE 125 U/L (40-136); BILIRUBIN,TOTAL 0.3 MG/DL (0.1-1.0); BUN/CREATININE RATIO 24; CALCIUM 9.5 MG/DL (8.5-10.1); CARBON DIOXIDE 19 MMOL/L (21-32); CHLORIDE 110 MMOL/L (98-107); CHOLESTEROL 197 MG/DL (< 200); CREATININE SERUM 0.88 MG/DL (0.60-1.30); GFR ESTIMATED > 60; GLUCOSE 143 MG/DL (70-105); HDL CHOLESTEROL 44 MG/DL (40-60); MAGNESIUM 2.1 MG/DL (1.8-2.4); PHOSPHORUS 2.3 MG/DL (2.3-4.7); POTASSIUM 3.6 MMOL/L (3.6-5.0); SODIUM 144 MMOL/L (135-145); TOTAL PROTEIN 6.9 GM/DL (6.4-8.2); TRIGLYCERIDES 227 MG/DL (<150); VLDL CHOLESTEROL 45 MG/DL (5-40)
[2019-03-28] MEDS: DILTIAZEM 125 MG/NS 100 ML IV SCH ×2 (04:54)
--- NOTE | 2019-03-28 08:42 | Diagnostic Imaging Report ---
INDICATION: Atrial fib. Comparison with 07/28/2019. Findings: Portable chest show the lungs to be well-aerated and clear. Heart is upper limits of normal. There is no pulmonary edema. No pneumothorax or pleural effusion. No bony abnormalities. IMPRESSION: Normal portable chest. Dictated by: Dictated on workstation # [id number]
[2019-03-28] MEDS ORDERED: DILTIAZEM 60 MG (CARDIZEM) TAB PO SCH (10:45)
[2019-03-28] MEDS ORDERED: AMIODARONE FOR BOLUS 150 MG in D5W 100 ML IVPB 100 ML IV NR (10:45)
[2019-03-28] MEDS ORDERED: AMIODARONE (OMNICELL DRIP KIT) 150 MG/3 ML IV ONE (10:48)
[2019-03-28] MEDS ORDERED: D5W 100 ML IVPB 100 ML IV ONE (10:49)
[2019-03-28] MEDS: AMIODARONE INJECTION 450 MG in D5W IV SOLUTION (EXCEL) 250 ML IV SCH ×3 (11:11→20:04)
[2019-03-28] MEDS: NS IV 1000 ML 1,000 ML IV SCH ×2 (11:12→11:42)
[2019-03-28] MEDS: DILTIAZEM 120 MG (CARDIZEM CD) CAP PO SCH (11:49)
[2019-03-28] MEDS ORDERED: PHEN28OI6 RC (11:57)
[2019-03-28] MEDS ORDERED: IBUP-2186 PO (11:57)
[2019-03-28] MEDS ORDERED: LACT1CAP62 PO (11:57)
[2019-03-28] MEDS ORDERED: MENT118G TP (11:57)
[2019-03-28] MEDS ORDERED: METO-370 PO (11:57)
[2019-03-28] MEDS ORDERED: ASPI325T32 PO (11:57)
[2019-03-28] MEDS ORDERED: VITS1TAB3 PO (11:57)
--- NOTE | 2019-03-28 11:59 | NUR ---
UPDATED MED REC WITH MEDICATION REVIEW REPORT FROM [facility].
--- NOTE | 2019-03-28 12:21 | Consultation-Cardiology ---
HPI-Cardiology Cardiology Consultation: Date of Consultation 03/28/19 Date of Admission Attending Physician Anaya Sifuentes MD Admitting Physician Noah Gibbs MD Consulting Physician Agus TRIPLETT MD HPI: Time Seen by a Provider: 08:45 Chief Complaint: Palpitations This is a 84-year-old lady who has history of dementia. [facility]. She was found to be in atrial fibrillation with rapid ventricular rate. She denies any other complaints. I had previously seen her as an inpatient consultation however on discharge the patient never followed up in the office. In the ER Cardizem was given which converted her rhythm to sinus. She was kept on low-dose Cardizem infusion and admitted. However the patient went back into atrial fibrillation with controlled ventricular rate and continue to be on Cardizem. Review of Systems-Cardiology Review of Systems Constitutional: As described under HPI; No As described under HPI, No no symptoms reported, No chills, No fever, No lightheadedness Eyes: No As described under HPI, No no symptoms reported, No blindness, No blurred vision, No contact lenses, No drainage, No decreased acuity, No foreign body sensation, No pain, No vision change Ears/Nose/Throat: No As described under HPI, No no symptoms reported, No chronic hearing loss, No ear discharge, No ear pain, No nasal drainage, No ulcerations Respiratory: No no symptoms reported; As described under HPI; No As described under HPI, No cough, No orthopnea, No shortness of breath, No SOB with excertion Cardiovascular: No no symptoms reported; As described under HPI; No As described under HPI, No chest pain, No edema, No irregular heart rate, No lightheadedness; palpitations Gastrointestinal: No no symptoms reported, No As described under HPI, No abdomen distended, No abdominal pain, No blood streaked bowels, No constipation , No diarrhea, No nausea, No vomiting, No stool coloration changes Genitourinary: No As described under HPI, No burning, No dysuria, No discharge , No frequency, No flank pain, No hematuria, No urgency : Yes : No Skin: No rash, No skin related problems, No ulcerations Psychiatric/Neurological: No anxiety, No depression, No seizure, No focal weakness, No syncope Hematologic: No bleeding abnormalities All Other Systems Reviewed Negative Unless Noted: Yes NMR-Eiynub-Bqvgcy Hx Patient Social History Alcohol Use: Denies Use Recreational Drug Use: No Smoking Status: Former Smoker Former smoker/When Quit: Aug 03, 1975 Type Used: Cigarettes 2nd Hand Smoke Exposure: No Recent Foreign Travel: No Recent Infectious Disease Expo: No Hospitalization with Isolation: Denies Immunizations Up To Date Tetanus Booster (TDap): Unknown Date of Pneumonia Vaccine: Aug 03, 2013 Past Medical History PMH As described under Assessment. Allergies and Home Medications Allergies Coded Allergies: amitriptyline (Unverified Adverse Reaction, Mild, PSYCH-HYPERACTIVE, 08/27) diazepam (Verified Adverse Reaction, Unknown, 08/02/15) haloperidol (Verified Adverse Reaction, Unknown, 08/02/15) lorazepam (Verified Adverse Reaction, Unknown, 08/02/15) Home Medications Acetaminophen 325 Mg Tablet, 650 MG PO Q4H PRN for PAIN-MILD, (Reported) TAKES 2 (325MG) TABLETS Amlodipine Besylate 10 Mg Tablet, 10 MG PO DAILY, (Reported) HOLD AND NOTIFY PCP IF BP <80/60 OR >180/110 OR PULSE <50 FOR >110 Aspirin 325 Mg Tablet.dr, 325 MG PO DAILY, (Reported) Carbidopa/Levodopa 1 Each Tablet, 1 TAB PO BID, (Reported) Cetirizine HCl 10 Mg Tablet, 10 MG PO DAILY, (Reported) Famotidine 20 Mg Tablet, 20 MG PO BID, (Reported) Furosemide 40 Mg Tablet, 40 MG PO DAILY, (Reported) Gabapentin 100 Mg Capsule, 100 MG PO DAILY, (Reported) Gabapentin 100 Mg Capsule, 200 MG PO HS, (Reported) TAKES 2 (100MG) CAPSULES Ibuprofen 200 Mg Tablet, 400 MG PO Q6H PRN for PAIN-MILD, (Reported) Lactobacillus Acidophilus 1 Each Capsule, 1 CAP PO DAILY, (Reported) Levothyroxine Sodium 125 Mcg Tablet, 125 MCG PO DAILY, (Reported) Losartan Potassium 100 Mg Tablet, 100 MG PO DAILY, (Reported) HOLD AND NOTIFY PCP IF BP <80/60 AND/OR PULSE <50 AND NOTIFY IF BP >180/110 AND/OR PULSE >110 Magnesium Oxide 500 Mg Capsule, 500 MG PO TID, (Reported) Melatonin 3 Mg Tablet, 9 MG PO HS, (Reported) TAKES 3 (3MG) TABLETS Menthol 118 Ml Gel..ml., TP Q4H PRN for PAIN, (Reported) Metoprolol Succinate 50 Mg Tab.er.24h, 50 MG PO DAILY, (Reported) Oxcarbazepine 300 Mg Tablet, 300 MG PO HS, (Reported) Phenyleph/Mineral Oil/Petrolat 28 Gm Oint.appl, RC UD PRN for HEMORRHOIDS, ( Reported) Potassium Chloride 20 Meq Tab.er.prt, 20 MEQ PO TID, (Reported) Rivastigmine Tartrate 6 Mg Capsule, 6 MG PO BID, (Reported) Ropinirole HCl 1 Mg Tablet, 1 MG PO BID, (Reported) Sennosides 8.6 Mg Tablet, 8.6 MG PO DAILY PRN for CONSTIPATION-5TH LINE, ( Reported) Sertraline HCl 100 Mg Tablet, 100 MG PO DAILY, (Reported) Trazodone HCl 50 Mg Tablet, 25 MG PO HS, (Reported) TAKES 1/2 (50MG) TABLET Vits A,C,E/Lutein/Minerals 1 Each Tablet, 1 TAB PO DAILY, (Reported) Patient Home Medication List Home Medication List Reviewed: Yes Physical Exam-Cardiology Physical Exam Vital Signs/I&O 03/28/19 03/28/19 03/28/19 03/28/19 01:00 01:00 02:00 03:01 Pulse 90 90 104 98 Resp 13 32 28 B/P (MAP) 135/92 (106) 149/86 (107) O2 Delivery Room Air Room Air Room Air 03/28/19 03/28/19 03/28/19 03/28/19 04:00 04:00 04:54 05:00 Pulse 103 102 Resp 14 19 B/P (MAP) 113/65 (81) 113/65 97/59 (72) O2 Delivery Room Air Room Air Room Air 03/28/19 03/28/19 03/28/19 03/28/19 06:00 07:00 07:00 08:00 Pulse 93 101 105 Resp 14 54 B/P (MAP) O2 Delivery Room Air Room Air Room Air 03/28/19 03/28/19 03/28/19 03/28/19 08:00 09:00 10:00 11:00 Pulse 96 100 101 105 Resp 12 13 16 22 B/P (MAP) O2 Delivery Room Air Room Air Room Air Room Air 03/28/19 03/28/19 03/28/19 12:00 12:00 12:03 Temp 98.5 Pulse 102 Resp 14 B/P (MAP) 160/96 (117) O2 Delivery Room Air Room Air 03/28/19 00:00 Intake Total 100 ml Balance 100 ml Capillary Refill : Less Than 3 Seconds Constitutional: appears stated age; No apparent distress; well-developed, well- nourished HEENT: PERRL; No discharge; hearing is well preserved, oral hygience is good; No ulceration, No xanthelasmas are seen Neck: No carotid bruit; carotid pulses are 2 + bilaterally Respiratory: No accessory muscle use, No respiratory distress, No chest tender , No chest expansion is symmetric; chest is bilaterally symmetric; No lungs clear to percussion; lungs clear to auscultation; No crackles, No rhonchi, No rales, No stridor, No wheezing, No pleural rub, No other Cardiovascular: No regular rate-rhythm; irregularly irregular; No extra beats, No parasternal heave is noted, No JVD, No edema, No bradycardia, No tachycardia , No point of maximal impulse, No cardiac thrills are palpable; S1 and S2; No gallop/S3, No gallop/S4, No diastolic murmur, No systolic murmur, No friction rub, No click, No other Gastrointestinal: No tender, No soft, No round, No distended, No pulsatile mass , No organomegaly, No guarding, No rebound, No tenderness, No hernia, No mass, No audible bowel sounds, No abnormal bowel sounds, No abdominal bruits, No spleenomegaly, No other Rectal: deferred Extremities: No normal range of motion, No non-tender, No normal inspection, No pedal edema, No calf tenderness, No normal capillary refill, No pelvis stable , No calf tenderness, No inflammation, No pedal edema, No slow capillary refill , No swelling, No other, No abrasion, No clubbing, No cyanosis, No ecchymosis, No laceration, No no lower extremity edema bilateral, No significant edema, No tenderness, No wound Neurologic/Psychiatric: no motor/sensory deficits, alert, normal mood/affect, oriented x 3, power is 5/5 both on sides Skin: No normal color, No warm/dry, No cyanosis, No cool, No diaphoresis, No damp, No ecchymosis, No jaundice, No mottled, No pallor, No rash, No tattoos/ piercings, No ulcerations, No rash on exposed areas, No ulcerations on exposed areas, No other Data Review Labs Laboratory Tests 03/27/19 15:35: White Blood Count 6.0, Red Blood Count 5.02, Hemoglobin 14.2, Hematocrit 42, Mean Corpuscular Volume 84, Mean Corpuscular Hemoglobin 28, Mean Corpuscular Hemoglobin Concent 34, Red Cell Distribution Width 13.1, Platelet Count 191, Mean Platelet Volume 10.0, Neutrophils (%) (Auto) 72, Lymphocytes (%) (Auto) 19 , Monocytes (%) (Auto) 8, Eosinophils (%) (Auto) 2, Basophils (%) (Auto) 0, Neutrophils # (Auto) 4.3, Lymphocytes # (Auto) 1.1, Monocytes # (Auto) 0.5, Eosinophils # (Auto) 0.1, Basophils # (Auto) 0.0, Prothrombin Time 12.9, INR Comment 0.9, Activated Partial Thromboplast Time 26, Sodium Level 141, Potassium Level 3.7, Chloride Level 105, Carbon Dioxide Level 25, Anion Gap 11, Blood Urea Nitrogen 29H, Creatinine 1.03, Estimat Glomerular Filtration Rate 51 , BUN/Creatinine Ratio 28, Glucose Level 195H, Calcium Level 9.6, Corrected Calcium 9.2, Magnesium Level 2.1, Total Bilirubin 0.3, Aspartate Amino Transf ( AST/SGOT) 13, Alanine Aminotransferase (ALT/SGPT) 10, Alkaline Phosphatase 144H , Myoglobin 42.5, Troponin I < 0.028, Total Protein 7.9, Albumin 4.5 03/27/19 15:42: Urine Color STRAW, Urine Clarity CLEAR, Urine pH 6.5, Urine Specific [place] 1.005L, Urine Protein NEGATIVE, Urine Glucose (UA) NEGATIVE, Urine Ketones NEGATIVE, Urine Nitrite NEGATIVE, Urine Bilirubin NEGATIVE, Urine Urobilinogen NORMAL, Urine Leukocyte Esterase NEGATIVE, Urine RBC (Auto) NEGATIVE, Urine RBC RARE, Urine WBC NONE, Urine Crystals NONE, Urine Bacteria NEGATIVE, Urine Casts NONE, Urine Mucus NEGATIVE, Urine Culture Indicated NO 03/28/19 03:35: White Blood Count 7.7, Red Blood Count 4.68, Hemoglobin 13.2, Hematocrit 39, Mean Corpuscular Volume 83, Mean Corpuscular Hemoglobin 28, Mean Corpuscular Hemoglobin Concent 34, Red Cell Distribution Width 13.1, Platelet Count 198, Mean Platelet Volume 10.2, Neutrophils (%) (Auto) 74, Lymphocytes (%) (Auto) 16 , Monocytes (%) (Auto) 8, Eosinophils (%) (Auto) 2, Basophils (%) (Auto) 0, Neutrophils # (Auto) 5.7, Lymphocytes # (Auto) 1.2, Monocytes # (Auto) 0.6, Eosinophils # (Auto) 0.1, Basophils # (Auto) 0.0, Sodium Level 144, Potassium Level 3.6, Chloride Level 110H, Carbon Dioxide Level 19L, Anion Gap 15H, Blood Urea Nitrogen 21H, Creatinine 0.88, Estimat Glomerular Filtration Rate > 60, BUN /Creatinine Ratio 24, Glucose Level 143H, Calcium Level 9.5, Corrected Calcium 9.5, Magnesium Level 2.1, Total Bilirubin 0.3, Aspartate Amino Transf (AST/SGOT ) 13, Alanine Aminotransferase (ALT/SGPT) 13, Alkaline Phosphatase 125, Total Protein 6.9, Albumin 4.0, Phosphorus Level 2.3, Triglycerides Level 227H, Cholesterol Level 197, LDL Cholesterol Direct 135H, VLDL Cholesterol 45H, HDL Cholesterol 44 ECG Impression ECG Initial ECG Impression: Atrial Fibrillation w/RVR A/P-Cardiology Assessment/Admission Diagnosis Atrial fibrillation with rapid ventricular rate Plan I will recommend anticoagulation if okay with the primary team. Unclear history of falls, however she does have dementia. If the primary team thinks that she is at high risk for falls, she may not be a candidate for oral anticoagulation. Recurrent atrial fibrillation. Change Cardizem to by mouth. Amiodarone infusion. Thank you for your consultation. Please call me if you have any questions. Hunter Triplett MD, FACP, FACC, FSCAI, FHRS, CCDS Interventional Cardiology Cardiac Electrophysiology Vascular Medicine and Endovascular Interventions Clinical Quality Measures AMI/AHF: ASA po Prior to arrival: Yes DVT/VTE Risk/Contraindication: Risk Factor Score Per Nursin RFS Level Per Nursing on Admit: 2=Moderate Agus TRIPLETT MD March 28, 2019 12:21
--- NOTE | 2019-03-28 22:56 | History & Physicial (CHS) ---
HPI History of Present Illness: 84 yo F with dementia that presented [place] ER from [place] with A fib with RVR. Patient answering questions but non tangential at times. Poor historian. Denies any chest pain or shortness of breath. Asking to go home. Initially converted to SR but then back to A fib this AM, rate controlled. Source: patient Exam Limitations: clinical condition Date seen by provider: March 28, 2019 Time Seen by Provider: 09:25 Attending Physician Anaya Sifuentes MD PCP Noah Gibbs MD Consult Date of Admission March 27, 2019 at 18:05 Home Medications Home Medications Reviewed patient Home Medication Reconciliation performed by pharmacy medication reconciliations optics test technician and/or nursing. Patients Allergies have been reviewed. Allergies Coded Allergies: amitriptyline (Unverified Adverse Reaction, Mild, PSYCH-HYPERACTIVE, 08/27) diazepam (Verified Adverse Reaction, Unknown, 08/02/15) haloperidol (Verified Adverse Reaction, Unknown, 08/02/15) lorazepam (Verified Adverse Reaction, Unknown, 08/02/15) QHP-[id number]-Tfefmf Hx Patient Social History Living Status: [place] Alcohol Use: Denies Use Recreational Drug Use: No Smoking Status: Former Smoker Former smoker/When Quit: Aug 03, 1975 Type Used: Cigarettes 2nd Hand Smoke Exposure: No Recent Foreign Travel: No Contact w/other who traveled: No Recent Hopitalizations: No Recent Infectious Disease Expo: No Immunizations Up To Date Tetanus Booster (TDap): Unknown Date of Pneumonia Vaccine: Aug 03, 2013 Past Medical History Dementia Paroxysmal Atrial fibrillation HTN Hypothyroidism Family Medical History Significant Family History: No Pertinent Family Hx Review of Systems ([facility]) Constitutional: No chills, No dizziness, No fever; weakness EENTM: no symptoms reported; No mouth pain, No nose congestion, No throat pain Respiratory: no symptoms reported; No cough, No dyspnea on exertion, No short of breath Cardiovascular: No chest pain, No edema; palpitations Gastrointestinal: no symptoms reported; No abdominal pain, No constipation, No diarrhea, No nausea, No vomiting Genitourinary: no symptoms reported; No dysuria, No frequency, No hematuria : No Musculoskeletal: no symptoms reported Skin: no symptoms reported Psychiatric/Neurological: Other (dementia) Reviewed Test Results Reviewed Test Results Lab Laboratory Tests Test 03/28/19 03:35 Range/Units White Blood Count 7.7 4.3-11.0 10^3/uL Red Blood Count 4.68 4.35-5.85 10^6/uL Hemoglobin 13.2 11.5-16.0 G/DL Hematocrit 39 35-52 % Mean Corpuscular Volume 83 80-99 FL Mean Corpuscular Hemoglobin 28 25-34 PG Mean Corpuscular Hemoglobin Concent 34 32-36 G/DL Red Cell Distribution Width 13.1 10.0-14.5 % Platelet Count 198 130-400 10^3/uL Mean Platelet Volume 10.2 7.4-10.4 FL Neutrophils (%) (Auto) 74 42-75 % Lymphocytes (%) (Auto) 16 12-44 % Monocytes (%) (Auto) 8 0-12 % Eosinophils (%) (Auto) 2 0-10 % Basophils (%) (Auto) 0 0-10 % Neutrophils # (Auto) 5.7 1.8-7.8 X 10^3 Lymphocytes # (Auto) 1.2 1.0-4.0 X 10^3 Monocytes # (Auto) 0.6 0.0-1.0 X 10^3 Eosinophils # (Auto) 0.1 0.0-0.3 10^3/uL Basophils # (Auto) 0.0 0.0-0.1 10^3/uL Sodium Level 144 135-145 MMOL/L Potassium Level 3.6 3.6-5.0 MMOL/L Chloride Level 110 H 98-107 MMOL/L Carbon Dioxide Level 19 L 21-32 MMOL/L Anion Gap 15 H 5-14 MMOL/L Blood Urea Nitrogen 21 H 7-18 MG/DL Creatinine 0.88 0.60-1.30 MG/DL Estimat Glomerular Filtration Rate > 60 BUN/Creatinine Ratio 24 Glucose Level 143 H 70-105 MG/DL Calcium Level 9.5 8.5-10.1 MG/DL Corrected Calcium 9.5 8.5-10.1 MG/DL Phosphorus Level 2.3 2.3-4.7 MG/DL Magnesium Level 2.1 1.8-2.4 MG/DL Total Bilirubin 0.3 0.1-1.0 MG/DL Aspartate Amino Transf (AST/SGOT) 13 5-34 U/L Alanine Aminotransferase (ALT/SGPT) 13 0-55 U/L Alkaline Phosphatase 125 40-136 U/L Total Protein 6.9 6.4-8.2 GM/DL Albumin 4.0 3.2-4.5 GM/DL Triglycerides Level 227 H <150 MG/DL Cholesterol Level 197 < 200 MG/DL LDL Cholesterol Direct 135 H 1-129 MG/DL VLDL Cholesterol 45 H 5-40 MG/DL HDL Cholesterol 44 40-60 MG/DL Physical Exam-([facility]) Physical Exam Vital Signs VS - Last 72 Hours, by Label 03/27/19 03/27/19 03/27/19 03/27/19 15:05 16:01 18:29 19:11 Temp 97.9 97.1 Pulse 145 111 114 89 Resp 18 18 18 21 B/P (MAP) 154/108 (123) 123/86 145/102 (116) 140/83 (102) Pulse Ox 98 99 98 98 O2 Delivery Room Air Room Air 03/27/19 03/27/19 03/27/19 03/27/19 19:11 19:15 19:30 19:45 Pulse 93 92 93 89 Resp 24 10 12 B/P (MAP) 130/90 (103) 101/60 (74) 152/83 (106) Pulse Ox 98 97 96 O2 Delivery Room Air Room Air Room Air 03/27/19 03/27/19 03/27/19 03/27/19 20:00 20:00 20:15 21:00 Pulse 90 91 92 Resp 15 25 17 B/P (MAP) 79/59 (66) 141/72 (95) 109/71 (84) Pulse Ox 98 96 97 95 O2 Delivery Room Air Room Air Room Air Room Air 03/27/19 03/27/19 03/27/19 03/27/19 21:30 22:00 22:30 23:00 Pulse 92 95 92 96 Resp 13 12 25 23 B/P (MAP) 122/73 (89) 104/80 (88) 115/104 (108) 114/102 (106) Pulse Ox 96 94 94 O2 Delivery Room Air Room Air Room Air Room Air 03/28/19 03/28/19 03/28/19 03/28/19 00:00 00:00 00:27 01:00 Temp 98.5 Pulse 93 90 Resp 25 13 B/P (MAP) 133/87 (102) 135/92 (106) O2 Delivery Room Air Room Air Room Air 5/15/03/28/19 03/28/19 03/28/19 01:00 02:00 03:01 04:00 Pulse 90 104 98 103 Resp 32 28 14 B/P (MAP) 149/86 (107) 113/65 (81) O2 Delivery Room Air Room Air Room Air 03/28/19 03/28/19 03/28/19 03/28/19 04:00 04:54 05:00 06:00 Pulse 102 93 Resp 19 14 B/P (MAP) 113/65 97/59 (72) O2 Delivery Room Air Room Air Room Air 03/28/19 03/28/19 03/28/19 03/28/19 07:00 07:00 08:00 08:00 Pulse 101 105 96 Resp 54 12 B/P (MAP) O2 Delivery Room Air Room Air Room Air 03/28/19 03/28/19 03/28/19 03/28/19 09:00 10:00 11:00 12:00 Pulse 100 101 105 102 Resp 13 16 22 14 B/P (MAP) 160/96 (117) O2 Delivery Room Air Room Air Room Air Room Air 03/28/19 03/28/19 03/28/19 03/28/19 12:00 12:03 13:00 13:01 Temp 98.5 Pulse 99 98 Resp 15 O2 Delivery Room Air Room Air 03/28/19 03/28/19 03/28/19 03/28/19 14:00 15:00 16:00 16:00 Pulse 106 76 109 Resp 15 18 15 B/P (MAP) 154/101 (118) 140/93 (109) 152/87 (108) Pulse Ox 100 98 O2 Delivery Room Air Room Air Room Air Room Air 03/28/19 03/28/19 03/28/19 03/28/19 16:10 17:00 18:00 20:00 Temp 99.6 99.5 Pulse 103 116 Resp 15 24 B/P (MAP) 131/71 (91) O2 Delivery Room Air Room Air Capillary Refill : Less Than 3 Seconds General Appearance: WD/WN, no apparent distress HEENT: PERRL/EOMI Neck: non-tender, full range of motion, supple Respiratory: chest non-tender, lungs clear, normal breath sounds, no respiratory distress, no accessory muscle use Cardiovascular: no murmur, irregularly irregular Gastrointestinal: normal bowel sounds, non tender, soft, no organomegaly Back: no CVA tenderness, no vertebral tenderness Extremities: no pedal edema, no calf tenderness, normal capillary refill Neurologic/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: 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 tested, no motor/sensory deficits, alert Skin: normal color, warm/dry Lymphatic: no adenopathy Assessment/Plan Assessment/Plan Admission Status: Inpatient Order (span 2 midnights) Reason for Inpatient Admission: Requiring IV meds for rate control (1) Atrial fibrillation with rapid ventricular response Status: Acute Assessment & Plan: - Cardiology consulted and managing, patient started on Cardizem, will talk to PCP regarding fall risk (2) HTN (hypertension) Status: Chronic Assessment & Plan: - Continue home meds Qualifiers: Qualified Codes: I10 - Essential (primary) hypertension (3) Hypothyroidism Status: Chronic Assessment & Plan: - Continue home meds Qualifiers: Qualified Codes: E03.9 - Hypothyroidism, unspecified (4) DVT prophylaxis Status: Acute Assessment & Plan: Lovenox Clinical Quality Measures AMI/AHF: ASA po Prior to arrival: Yes DVT/VTE Risk/Contraindication: Risk Factor Score Per Nursin RFS Level Per Nursing on Admit: 2=Moderate Copy Copies To 1: Polina BAEZ APRN, HOLLY R MD March 28, 2019 22:56
[2019-03-28] MEDS ORDERED: ENOXAPARIN 40 MG/0.4 ML (LOVENOX) SYR SQ SCH (23:00)
[2019-03-29] VITALS (16 sets, daily range): BP systolic 126–183; BP diastolic 30–106
[2019-03-29] MEDS ORDERED: ENOXAPARIN 40 MG/0.4 ML (LOVENOX) SYR ONE (00:03)
[2019-03-29] MEDS ORDERED: ENOXAPARIN 40 MG/0.4 ML (LOVENOX) SYR SQ SCH (02:00)
[2019-03-29] MEDS: NS IV 1000 ML 1,000 ML IV SCH (02:51)
[2019-03-29 03:33] LABS: BASOPHILS % (AUTO) 0 % (0-10); EOSINOPHILS # (AUTO) 0.1 10^3/uL (0.0-0.3); EOSINOPHILS % (AUTO) 1 % (0-10); HEMATOCRIT 39 % (35-52); HEMOGLOBIN 13.2 G/DL (11.5-16.0); LYMPHOCYTES # (AUTO) 1.2 X 10^3 (1.0-4.0); LYMPHOCYTES % (AUTO) 14 % (12-44); MEAN CORPUSCULAR HEMOGLOBIN 28 PG (25-34); MEAN CORPUSCULAR HGB CONC 34 G/DL (32-36); MEAN CORPUSCULAR VOLUME 84 FL (80-99); MONOCYTES # (AUTO) 0.6 X 10^3 (0.0-1.0); MONOCYTES % (AUTO) 7 % (0-12); NEUTROPHILS % (AUTO) 79 % (42-75); PLATELET COUNT 169 10^3/uL (130-400); RED CELL DISTRIBUTION WIDTH 13.2 % (10.0-14.5); WHITE BLOOD COUNT 8.8 10^3/uL (4.3-11.0)
[2019-03-29 03:54] LABS: BUN/CREATININE RATIO 16; CALCIUM 9.2 MG/DL (8.5-10.1); CARBON DIOXIDE 16 MMOL/L (21-32); CHLORIDE 111 MMOL/L (98-107); CREATININE SERUM 0.79 MG/DL (0.60-1.30); GFR ESTIMATED > 60; GLUCOSE 150 MG/DL (70-105); PHOSPHORUS 2.3 MG/DL (2.3-4.7); POTASSIUM 3.7 MMOL/L (3.6-5.0); SODIUM 141 MMOL/L (135-145)
[2019-03-29] MEDS ORDERED: POTASSIUM CL 10MEQ/50ML IVPB 50 ML IV SCH (06:00)
[2019-03-29] MEDS ORDERED: MAGNESIUM 1 GM/100 ML IVPB 100 ML IV SCH (06:00)
[2019-03-29] MEDS ORDERED: KCL 20 MEQ TAB (K-DUR) PO SCH (06:00)
--- NOTE | 2019-03-29 07:55 | Diagnostic Imaging Report ---
CLINICAL INDICATION: ICU followup exam. A. fib with RVR. EXAM: Portable chest x-ray upright view. COMPARISONS: Chest x-ray dated 03/28/2019. FINDINGS: Lungs/pleura: Lungs are clear. There is no pneumothorax. There is no pleural effusion. Mediastinum: Unremarkable. Pulmonary vasculature: Unremarkable. Heart: Upper limits of normal heart size, stable. Bones/extrathoracic soft tissue: There are hypertrophic spurs involving the thoracic spine. IMPRESSION: Stable chest x-ray exam with no interval radiographic evidence of acute cardiopulmonary process. Dictated by: Dictated on workstation # [id number]
[2019-03-29] MEDS: DILTIAZEM 120 MG (CARDIZEM CD) CAP PO SCH (08:41)
[2019-03-29] MEDS ORDERED: LEVOTHYROXINE 125 MCG (LEVOTHROID) TABLET PO SCH (09:00)
[2019-03-29] MEDS ORDERED: NON-FORMULARY MEDICATION 1 EA EA (Amlodipine Besylate 10 MG) PO SCH (09:00)
[2019-03-29] MEDS ORDERED: SINEMET 25/100 (CARBIDOPA/LEVODOPA) TAB PO SCH (09:00)
[2019-03-29] MEDS ORDERED: amLODIPine 10 MG (NORVASC) TAB PO SCH (09:00)
[2019-03-29] MEDS ORDERED: SERTRALINE 100 MG (ZOLOFT) TAB PO SCH (09:00)
[2019-03-29] MEDS ORDERED: meTOproloL SUCCINATE 50 MG (TOPROL XL) TAB PO SCH (09:00)
[2019-03-29] MEDS ORDERED: FUROSEMIDE 40 MG (LASIX) TAB PO SCH (09:00)
--- NOTE | 2019-03-29 10:30 | Cardiology Progress Note ---
Cardiology SOAP Progress Note Subjective: No cardiac complaints. Objective: I&O/Vital Signs 03/28/19 03/29/19 03/29/19 03/29/19 23:00 00:00 00:00 00:00 Temp 98.5 Pulse 122 102 Resp 23 22 B/P (MAP) 153/95 (114) 170/92 (118) O2 Delivery Room Air Room Air Room Air 03/29/19 03/29/19 03/29/19 03/29/19 01:00 01:00 02:22 03:00 Pulse 78 78 67 71 Resp 36 22 13 B/P (MAP) 175/90 (118) 140/62 (88) 183/91 (121) O2 Delivery Room Air Room Air Room Air 03/29/19 03/29/19 03/29/19 03/29/19 03:30 04:00 04:00 04:00 Temp 98.9 Pulse 68 68 Resp 30 22 B/P (MAP) 160/89 (112) 138/81 (100) O2 Delivery Room Air Room Air Room Air 03/29/19 03/29/19 03/29/19 03/29/19 05:00 05:30 06:00 06:30 Pulse 68 68 66 68 Resp 17 15 13 10 B/P (MAP) 148/30 (69) 160/78 (105) 170/97 (121) 140/80 (100) O2 Delivery Room Air Room Air Room Air Room Air 03/29/19 03/29/19 03/29/19 03/29/19 07:00 07:00 07:00 07:52 Temp 97.9 Pulse 69 69 Resp 40 B/P (MAP) 145/73 (97) O2 Delivery Room Air Room Air 03/29/19 03/29/19 03/29/19 08:00 09:00 10:00 Pulse 68 69 64 Resp 8 16 18 B/P (MAP) 171/80 (110) 159/78 (105) 126/106 (113) O2 Delivery Room Air Room Air Room Air 03/29/19 00:00 Intake Total 1119 ml Output Total 1525 ml Balance -406 ml Weight (Pounds): 171 Weight (Ounces): 3.0 Weight (Calculated Kilograms): [id number] Constitutional: appears stated age; No apparent distress; well-developed, well- nourished Respiratory: No accessory muscle use, No respiratory distress, No chest tender , No chest expansion is symmetric; chest is bilaterally symmetric; No lungs clear to percussion; lungs clear to auscultation; No crackles, No rhonchi, No rales, No stridor, No wheezing, No pleural rub, No other Cardiovascular: regular rate-rhythm; No extra beats, No parasternal heave is noted, No JVD, No edema, No bradycardia, No tachycardia, No point of maximal impulse, No cardiac thrills are palpable; S1 and S2; No gallop/S3, No gallop/S4 , No diastolic murmur, No systolic murmur, No friction rub, No click, No other Gastrointestional: No tender, No soft, No round, No distended, No pulsatile mass, No organomegaly, No guarding, No rebound, No tenderness, No hernia, No mass, No audible bowel sounds, No abnormal bowel sounds, No abdominal bruits, No spleenomegaly, No other Extremities: No normal range of motion, No non-tender, No normal inspection, No pedal edema, No calf tenderness, No normal capillary refill, No pelvis stable , No calf tenderness, No inflammation, No pedal edema, No slow capillary refill , No swelling, No other, No abrasion, No clubbing, No cyanosis, No ecchymosis, No laceration, No no lower extremity edema bilateral, No significant edema, No tenderness, No wound Neurologic/Psychiatric: no motor/sensory deficits, alert, normal mood/affect, oriented x 3, power is 5/5 both on sides Skin: No normal color, No warm/dry, No cyanosis, No cool, No diaphoresis, No damp, No ecchymosis, No jaundice, No mottled, No pallor, No rash, No tattoos/ piercings, No ulcerations, No rash on exposed areas, No ulcerations on exposed areas, No other Results/Procedures: Labs Laboratory Tests 03/29/19 03:11: White Blood Count 8.8, Red Blood Count 4.65, Hemoglobin 13.2, Hematocrit 39, Mean Corpuscular Volume 84, Mean Corpuscular Hemoglobin 28, Mean Corpuscular Hemoglobin Concent 34, Red Cell Distribution Width 13.2, Platelet Count 169, Mean Platelet Volume 10.0, Neutrophils (%) (Auto) 79H, Lymphocytes (%) (Auto) 14 , Monocytes (%) (Auto) 7, Eosinophils (%) (Auto) 1, Basophils (%) (Auto) 0, Neutrophils # (Auto) 7.0, Lymphocytes # (Auto) 1.2, Monocytes # (Auto) 0.6, Eosinophils # (Auto) 0.1, Basophils # (Auto) 0.0, Sodium Level 141, Potassium Level 3.7, Chloride Level 111H, Carbon Dioxide Level 16L, Anion Gap 14, Blood Urea Nitrogen 13, Creatinine 0.79, Estimat Glomerular Filtration Rate > 60, BUN/ Creatinine Ratio 16, Glucose Level 150H, Calcium Level 9.2, Phosphorus Level 2.3 , Magnesium Level 2.0, Thyroid Stimulating Hormone (TSH) 2.61 Microbiology 03/27/19 MRSA Screen - Final, Complete MRSA not isolated A/P: Assessment/Dx: Atrial fibrillation with rapid ventricular rate Plan: Based on her CHADSVASC score, she should be on oral anticoagulation, she was previously on Xarelto . Unclear history of falls, however she does have dementia. If the primary team thinks that she is at high risk for falls, she may not be a candidate for oral anticoagulation. I could not assess her risk of fall during this brief hospitalization, therefore I'm very uncomfortable to start the patient back on Xarelto. I'm going to defer it to Dr. Sifuentes's discussion with the primary care physician. Converted to sinus rhythm. Finish amiodarone infusion and change to by mouth amiodarone 200 mg once daily. Cardizem 120 mg once daily extended release. After the amiodarone infusion is completed, the patient can be discharged. Thank you for your consultation. Please call me if you have any questions. Hunter Triplett MD, FACP, FACC, FSCAI, FHRS, CCDS Interventional Cardiology Cardiac Electrophysiology Vascular Medicine and Endovascular Interventions Clinical Quality Measures AMI/AHF: ASA po Prior to arrival: Yes Agus TRIPLETT MD March 29, 2019 10:30
--- NOTE | 2019-03-29 10:55 | NUR ---
CM/SS. Patient is discharged to return to established placement with [facility], retirement care. She did not meet criteria to access Medicare skilled benefits. Spouse Darrell Cummins was here this a.m. and was updated by unit RN. Real Estate Manager spoke with MLF/HUSEYIN/Kaelyn due to Darrell allegedly taking patient off cardiac Rx because of cost. Kaelyn and [facility] staff fully aware and have been advocating for patient through DCF/APS, [facility], [facility] SEK, and directly with Darrell. Real Estate Manager recommended they confirm whether patient is eligible for Rx discount program at [facility] or any pharmaceutical assist programs. Kaelyn indicated [facility] physician would be making rounds today at [facility] and they could discuss. Transport scheduled for 1330, NH to bring clothing and wheelchair.
[2019-03-29] MEDS ORDERED: AMIO200T4 PO (13:24)
[2019-03-29] MEDS ORDERED: DILT120C94 PO (13:24)
--- NOTE | 2019-03-29 13:26 | Discharge Instructions ---
Discharge [facility] Discharge Medications New Medications: Amiodarone HCl (Amiodarone HCl) 200 Mg Tablet 200 MG PO BID, #60 TAB Diltiazem HCl (Diltiazem 24Hr Cd) 120 Mg Cap.er.24h 120 MG PO DAILY, #30 CAP Continued Medications: Acetaminophen (Tylenol) 325 Mg Tablet 650 MG PO Q4H PRN for PAIN-MILD, TAB TAKES 2 (325MG) TABLETS Amlodipine Besylate (Amlodipine Besylate) 10 Mg Tablet 10 MG PO DAILY, TAB HOLD AND NOTIFY PCP IF BP <80/60 OR >180/110 OR PULSE <50 FOR >110 Carbidopa/Levodopa (Carbidopa-Levodopa 25-100 Tab) 1 Each Tablet 1 TAB PO BID, TAB Cetirizine HCl (Zyrtec) 10 Mg Tablet 10 MG PO DAILY, TAB Famotidine (Pepcid) 20 Mg Tablet 20 MG PO BID, TAB Furosemide (Furosemide) 40 Mg Tablet 40 MG PO DAILY, TAB Lactobacillus Acidophilus (Probiotic) 1 Each Capsule 1 CAP PO DAILY, CAP Levothyroxine Sodium (Levothyroxine Sodium) 125 Mcg Tablet 125 MCG PO DAILY, TAB Losartan Potassium (Losartan Potassium) 100 Mg Tablet 100 MG PO DAILY, TAB HOLD AND NOTIFY PCP IF BP <80/60 AND/OR PULSE <50 AND NOTIFY IF BP >180/110 AND/OR PULSE >110 Magnesium Oxide (Magnesium Oxide) 500 Mg Capsule 500 MG PO TID, CAP Melatonin (Melatonin) 3 Mg Tablet 9 MG PO HS, TAB TAKES 3 (3MG) TABLETS Menthol (Biofreeze) 118 Ml Gel..ml. TP Q4H PRN for PAIN, TUBE Metoprolol Succinate (Metoprolol Succinate) 50 Mg Tab.er.24h 50 MG PO DAILY, TAB Phenyleph/Mineral Oil/Petrolat (Preparation H Ointment) 28 Gm Oint.appl RC UD PRN for HEMORRHOIDS, TUBE Potassium Chloride (Klor-Con M20) 20 Meq Tab.er.prt 20 MEQ PO TID, TAB Rivastigmine Tartrate (Rivastigmine) 6 Mg Capsule 6 MG PO BID, CAP Ropinirole HCl (Ropinirole HCl) 1 Mg Tablet 1 MG PO BID, TAB Sennosides (Senna) 8.6 Mg Tablet 8.6 MG PO DAILY PRN for CONSTIPATION-5TH LINE, TAB Sertraline HCl (Sertraline HCl) 100 Mg Tablet 100 MG PO DAILY, TAB Vits A,C,E/Lutein/Minerals (Vision Formula with Lutein Tab) 1 Each Tablet 1 TAB PO DAILY, TAB Discontinued Medications: Aspirin (Aspirin EC) 325 Mg Tablet.dr 325 MG PO DAILY, TAB Gabapentin (Gabapentin) 100 Mg Capsule 100 MG PO DAILY, CAP Gabapentin (Gabapentin) 100 Mg Capsule 200 MG PO HS, CAP TAKES 2 (100MG) CAPSULES Ibuprofen (Ibu-200) 200 Mg Tablet 400 MG PO Q6H PRN for PAIN-MILD, TAB Oxcarbazepine (Oxcarbazepine) 300 Mg Tablet 300 MG PO HS, TAB Trazodone HCl (Trazodone HCl) 50 Mg Tablet 25 MG PO HS, TAB TAKES 1/2 (50MG) TABLET Patient Instructions Goal/Follow Up Appt: - Will be seen by Ivan next week Activity & Diet Discharge Diet: Cardiac Diet Orders-Post D/C & Referrals Pneu Vac Indicated: Yes YELENA MAN MD March 29, 2019 13:26
--- NOTE | 2019-03-29 13:30 | NUR ---
REPORT CALLED TO LUDY COHEN AT [facility]. PATIENT BELONGINGS ET DISCHARGE PAPERWORK SENT WITH PROTECTIVE SIGNAL SUPERINTENDENT. PATIENT LEFT HOSPITAL AT THIS TIME. IV D/C'D TIP INTACT.
[2019-03-29] MEDS ORDERED: AMIODARONE 200 MG (CORDARONE) TAB PO SCH (21:00)
--- NOTE | 2019-03-30 07:55 | Physician Query Clarification ---
PQ-Intro New Diagnosis Admission/Discharge Admission Date: March 27, 2019 at 18:05 Discharge Date: March 29, 2019 at 13:30 The medical record reflects the following clinical scenario: History/Risk Factors: Alzheimer's Disease/Agitation/Insomnia per ED record. Clinical Findings: Patient confused-pulled out IV upon arrival. Treatment: Rivastigmine Tartrate 6mg capsule PO BID. Question: What condition best reflects the above clinical scenario? Please document below. 1. Alzheimer's dementia with behavioral disturbance. 2. Alzheimer's dementia without behavioral disturbance. 3. Other, with explanation of the clinical findings. 4. Clinically undetermined, no explanation for the clinical findings. PHYSICIAN RESPONSE What condition reflects above: 2 In responding to this query, please exercise your independent professional judgment. The purpose of this communication is to more accurately reflect the complexity of your patients condition. The fact that a question is asked does not imply that any particular answer is desired or expected. Thank you for your timely response to this clarification. Requestors name: Dori Espinal [facility] Phone # ext [phone] or [phone] THIS PHYSICIAN QUERY FORM IS A PERMANENT PART OF THE MEDICAL RECORD DORI ESPINAL March 30, 2019 07:55 YELENA MAN MD April 06, 2019 03:57
--- NOTE | 2019-03-30 16:37 | Physician Query-Final Dx ---
DENNISE PHELPS 03/30/19 1637: Final Diagnosis Give Final Diagnosis Please give Final Diagnosis YELENA MAN MD 04/06/19 0353: Final Diagnosis Give Final Diagnosis Atrial Fibrillation with RVR Dementia HTN DENNISE PHELPS March 30, 2019 16:37 YELENA MAN MD April 06, 2019 03:53
== END 2019-03-29 13:30 | DRG 310 ==
LOC: EDUNIT# 15:06 → ER 15:08 → ICU 18:05
PROVIDERS: ADMIT Family Medicine; ATTEND Family Medicine
DX: I48.0 Paroxysmal atrial fibrillation (principal); I48.92 Unspecified atrial flutter; I10 Essential (primary) hypertension; E11.9 Type 2 diabetes mellitus without complications; G30.9 Alzheimer's disease, unspecified; F02.80 Dementia in other diseases classified elsewhere, unspecified severity, without behavioral disturbance, psychotic disturbance, mood disturbance, and anxiety; J30.2 Other seasonal allergic rhinitis; G20 Parkinson's disease; G25.81 Restless legs syndrome; G24.01 Drug induced subacute dyskinesia; K21.9 Gastro-esophageal reflux disease without esophagitis; E03.9 Hypothyroidism, unspecified; G47.00 Insomnia, unspecified; F41.9 Anxiety disorder, unspecified; F31.9 Bipolar disorder, unspecified; R60.9 Edema, unspecified; Z87.891 Personal history of nicotine dependence
CPT/HCPCS: 36415; 51702; 71045; 80048; 80053; 80061; 81000; 83735; 83874; 84100; 84443; 84484; 85025; 85610; 85730; 87081; 93005; 93041; 96372; 96374